=== PATIENT | female | born 1965 | race Caucasian/White ===

== ENCOUNTER → 2020-06-17 12:34 | Outpatient (BNVA) | payer MEDICAID, SELFPAY | PROVIDERS: PCP Internal Medicine; Referring Provider Internal Medicine; Visit Provider Physician Assistant | DX: K21.9 Gastro-esophageal reflux disease without esophagitis (principal); K59.09 Other constipation; Z79.899 Other long term (current) drug therapy | CPT/HCPCS: 99214 ==

== ENCOUNTER → 2020-09-16 09:29 | Outpatient (BNVA) | payer MEDICAID, SELFPAY | PROVIDERS: PCP Internal Medicine; Referring Provider Internal Medicine; Visit Provider Physician Assistant ==

== ENCOUNTER 2020-11-01 10:41 | Outpatient (REF) | payer MEDICAID, SELFPAY ==
--- NOTE | ~2020-11-01 | CT_ITS ---
EXAMINATION: CT CHEST WITHOUT CONTRAST CLINICAL INFORMATION: Pulmonary nodules COMPARISON: Multiple priors, most recently 11/25/2019 TECHNIQUE: Multidetector volumetric CT imaging of the chest was done. Axial MIP volume rendering provided. Sagittal and coronal reformatted images were obtained. This CT examination was performed using dose optimization techniques as appropriate, variously including the following: *Automated exposure control *Adjustment of mA and/or kV according to patient size (this includes techniques or standardized protocols for targeted exams where dose is matched to indication/reason for exam; i.e. extremities or head) *Use of iterative reconstruction technique DLP: 157 mGy-cm FINDINGS: EMERGENCY MEDICAL DISPATCHER: Unremarkable. LUNGS: The central airways are patent. Mild biapical paraseptal emphysema. Mild centrilobular emphysema. No dense consolidation. Minimal bibasilar atelectasis. Mild bronchial wall thickening noted. This could be associated with chronic bronchitis. Pulmonary nodules are again noted. 1. Redemonstration of the cavitating right lower lobe nodule with thin wall measuring 0.7 cm on series 7 image 215. This had measured 0.6 cm on prior. There is no significant solid component, though there is some groundglass opacity at the margin as seen on series 7 image 215. 2. Right middle lobe fissural nodule measuring 0.5 cm on series 7 image 303, unchanged and likely a fissural lymph node. 3. Left upper lobe groundglass nodule measuring 0.6 cm on series 7 image 207. This is without significant change when measured by me. 4. Anterior right upper lobe nodule measuring 0.5 cm along the mediastinal margin, series 7 image 248, unchanged from prior. This may be fissural as well. MEDIASTINUM: Normal heart size. No pericardial effusion. No mediastinal lymphadenopathy. Minimal stranding in the anterior superior mediastinal fat is unchanged. PLEURA: There is no pleural effusion. No pleural mass or thickening. No pneumothorax. AXILLA: No lymphadenopathy. Calcification in the right breast soft tissues is unchanged. UPPER ABDOMEN: Unremarkable. OSSEOUS STRUCTURES: No acute or suspicious osseous abnormality. CT/CT chest wo con IMPRESSION: Mild emphysema. Multiple nodules are again noted, some of which likely represent fissural lymph nodes. There is a 0.7 cm cavitating right lower lobe nodule which is slightly increased in size from prior, measuring 0.6 cm at that time. Given the growth, follow-up should be as clinically directed.
== END 2020-11-01 10:42 | disposition home or self-care (01) ==
LOC: HO.CT 10:41
PROVIDERS: Visit Provider Internal Medicine Pulmonary Disease
DX: R91.8 Other nonspecific abnormal finding of lung field (principal)
CPT/HCPCS: 71250

== ENCOUNTER 2020-11-19 12:45 | Outpatient (REF) | payer MEDICAID, SELFPAY ==
--- NOTE | ~2020-11-19 | MR_ITS ---
EXAMINATION: MR LUMBAR SPINE WITHOUT CONTRAST CLINICAL INFORMATION: Lower back pain for 3 years. Bilateral knee pain. Left buttock and leg pain. COMPARISON: Lumbar spine radiographs dated 09/22/2016. TECHNIQUE: MRI of the lumbar spine was obtained using routine sequences without contrast. FINDINGS: VERTEBRAL BODIES AND PARASPINAL STRUCTURES: Normal vertebral body alignment. The lumbar lordosis is maintained. No acute fracture or subluxation. No loss of vertebral body height. Mild loss of intervertebral disc height at L3-L4. More severe loss of intervertebral disc height at L5-S1 with minimal Modic type II degenerative endplate changes. Posterior vertebral body hemangioma within L1. No acute abnormal marrow signal. Small simple-appearing bilateral renal cysts. The visualized paraspinal soft tissues are otherwise unremarkable. CONUS MEDULLARIS AND CAUDA EQUINA: Normal, terminating at the level of L1. SPINAL LEVELS: T12-L1: No significant disc bulge. No central canal or neural foraminal stenosis. L1-L2: No significant disc bulge. No central canal or neural foraminal stenosis. L2-L3: No significant disc bulge. No central canal or neural foraminal stenosis. L3-L4: Shallow broad-based disc bulge with a superimposed right foraminal disc protrusion and annular fissuring which contacts the exiting right L3 nerve root. Bilateral facet arthropathy and thickening of the ligamentum flavum with moderate right and mild left neural foraminal stenosis. L4-L5: Shallow broad-based disc bulge, slightly asymmetric to the left. Bilateral facet arthropathy and thickening of the ligamentum flavum with mild to moderate bilateral neural foraminal stenosis. L5-S1: Broad-based disc osteophyte complex, asymmetric to the right. Bilateral facet arthropathy with mild bilateral neural foraminal stenosis. MR/MR lumbar spine wo con IMPRESSION: 1. L3-L4 broad-based disc bulge and superimposed right foraminal disc protrusion with annular fissuring which contacts the exiting right L3 nerve root. Bilateral facet arthropathy and thickening of ligamentum flavum with moderate right and mild left neural foraminal stenosis. 2. L4-L5 shallow broad-based disc bulge, slightly asymmetric to the left with bilateral facet arthropathy and thickening of ligamentum flavum causing mild to moderate bilateral neural foraminal stenosis. 3. Severe degenerative disc disease at L5-S1 with a broad-based disc osteophyte complex, asymmetric to the right as well as bilateral facet arthropathy causing mild bilateral neural foraminal stenosis.
== END 2020-11-19 12:46 | disposition home or self-care (01) ==
LOC: HO.MRI 12:45
PROVIDERS: PCP Internal Medicine; Visit Provider Internal Medicine
DX: M54.5 Low back pain (principal)
CPT/HCPCS: 72148

== ENCOUNTER → 2020-11-30 09:37 | Outpatient (BNVA) | payer MEDICAID, SELFPAY | PROVIDERS: PCP Internal Medicine; Referring Provider Internal Medicine; Visit Provider Internal Medicine Pulmonary Disease | DX: J44.1 Chronic obstructive pulmonary disease with (acute) exacerbation (principal); R91.8 Other nonspecific abnormal finding of lung field | CPT/HCPCS: 99212 ==

== ENCOUNTER → 2020-12-20 09:24 | Outpatient (BNVA) | payer MEDICAID, SELFPAY | PROVIDERS: PCP Internal Medicine; Visit Provider Physician Assistant ==

== ENCOUNTER → 2021-01-31 16:04 | Outpatient (BNVA) | payer MEDICAID, SELFPAY | PROVIDERS: PCP Internal Medicine; Visit Provider Anesthesiology | DX: M47.817 Spondylosis without myelopathy or radiculopathy, lumbosacral region (principal); M51.36 Other intervertebral disc degeneration, lumbar region; G89.4 Chronic pain syndrome | CPT/HCPCS: 99202 ==

== ENCOUNTER 2021-02-23 13:49 | Outpatient (REF) | payer MEDICAID, SELFPAY ==
--- NOTE | ~2021-02-23 | CT_ITS ---
EXAMINATION: CT CHEST WITHOUT CONTRAST CLINICAL INFORMATION: Pulmonary nodules COMPARISON: Previous chest CT scans most recent October 2020 TECHNIQUE: Multidetector volumetric CT imaging of the chest was done. Axial MIP volume rendering provided. Sagittal and coronal reformatted images were obtained. This CT examination was performed using dose optimization techniques as appropriate, variously including the following: *Automated exposure control *Adjustment of mA and/or kV according to patient size (this includes techniques or standardized protocols for targeted exams where dose is matched to indication/reason for exam; i.e. extremities or head) *Use of iterative reconstruction technique DLP: 180 mGy-cm FINDINGS: MAP DRAFTER: LUNGS: There is evidence of mild paraseptal emphysema. There is mild biapical pleural parenchymal scarring. There are multiple bilateral pulmonary nodules. These are stable compared to most recent exam October 2020. Largest right pulmonary nodule is a 9 mm partially cystic or cavitary nodule in the right lower lobe axial image 304 series 7. This has some surrounding groundglass attenuation. By my measurement this is not appear appreciably changed from most recent exam October 2020 however this is definitely increased from older exam for example measuring 4 mm axial image 281 series 4 10/28/2017. Largest left pulmonary nodule is a 7 mm groundglass attenuation left upper lobe nodule axial image 279 series 7. This is also unchanged from most recent exam October 2020 however appears increased from 4 mm axial image 2:30 series 10/28/2017 exam. No new pulmonary nodule is seen. MEDIASTINUM: There are small mediastinal lymph nodes that are stable. There is a mild infiltration of the fat in the anterior mediastinum that is stable. The heart does not appear enlarged. The thoracic aorta is normal in caliber. PLEURA: There is no pleural effusion. No pleural mass or thickening. AXILLA: No lymphadenopathy. UPPER ABDOMEN: Unremarkable. OSSEOUS STRUCTURES: Unremarkable. CT/CT chest wo con IMPRESSION: Emphysema. Heterogeneous partially cystic partially groundglass attenuation superior segment right lower lobe and left upper lobe nodules. These are not appreciably changed from most recent exam October 2020 however are gradually increasing in size compared to remote older exams.
== END 2021-02-23 13:50 | disposition home or self-care (01) ==
LOC: HO.CT 13:49
PROVIDERS: Visit Provider Internal Medicine Pulmonary Disease
DX: R91.8 Other nonspecific abnormal finding of lung field (principal)
CPT/HCPCS: 71250

== ENCOUNTER → 2021-03-03 09:38 | Outpatient (BNVA) | payer MEDICAID, SELFPAY | PROVIDERS: PCP Internal Medicine; Visit Provider Internal Medicine Pulmonary Disease | DX: J44.1 Chronic obstructive pulmonary disease with (acute) exacerbation (principal); R91.8 Other nonspecific abnormal finding of lung field | CPT/HCPCS: 99212 ==

== ENCOUNTER → 2021-03-16 13:01 | Outpatient (REF) | payer MEDICAID, SELFPAY ==
[2021-03-16 13:45] LABS: MANUAL DIFF FLAG NO
[2021-03-16 14:00] LABS: Basophils Absolute Auto 0.1 X10*3/uL (0.0-0.2); Basophils Percent Auto 0.8 % (0-2); Eosinophils Absolute Auto 0.3 X10*3/uL (0.0-0.4); Eosinophils Percent Auto 2.2 % (0-4); Hematocrit 36.6 % (37-47); Hemoglobin 12.2 g/dl (12.0-16.0); Imm Gran Abs Auto 0.05 X10*3/uL (0.00-0.03); Imm Gran Pct Auto 0.4 % (0.0-0.4); Lymphocytes Absolute Auto 3.8 X10*3/uL (1.2-4.9); Mean Corpuscular HGB Conc 33.3 g/dl (31.0-35.0); Mean Corpuscular Hemoglobin 29.5 pg (27.0-33.0); Mean Corpuscular Volume 88.4 fL (80-98); Mean Platelet Volume 9.4 fL (9.4-12.3); Monocytes Absolute Auto 0.7 X10*3/uL (0.1-1.2); Monocytes Percent Auto 5.7 % (2-11); Neutrophils Absolute Auto 7.7 X10*3/uL (2.0-8.3); Neutrophils Percent Auto 60.9 % (45-73); Platelet Count 395 X10*3/uL (160-400); Red Blood Count 4.14 X10*6/uL (4.20-5.50); Red Cell Distribution Width 14.4 % (11.0-16.0); White Blood Count 12.6 X10*3/uL (4.8-10.8)
[2021-03-16 14:10] LABS: Alanine Aminotransferase 7 U/L (0-31); Alkaline Phosphatase 93 U/L (39-117); Anion Gap 12 (12-20); Aspartate Amino Transferase 13 U/L (5-31); Bilirubin Direct < 0.2 mg/dL (0.0-0.5); Bilirubin Total 0.2 mg/dL (0.0-1.0); Blood Urea Nitrogen 9 mg/dL (9-16); Calcium 9.9 mg/dL (8.4-10.2); Carbon Dioxide 24 mmol/L (22-29); Chloride 108 mmol/L (96-108); Cholesterol 231 mg/dL; Estimated Glomerular Filt Rate 45; Glucose Random 89 mg/dL (60-115); HDL Cholesterol 35 mg/dL; LDL Cholesterol Calculated 128 mg/dl; Potassium 4.4 mmol/L (3.3-5.1); Sodium 140 mmol/L (135-145); Total Protein 7.6 g/dL (6.5-8.0); Triglycerides 340 mg/dL
[2021-03-16 14:37] LABS: Free T4 (Free Thyroxine) 0.92 ng/dL (0.71-1.85); Thyroid Stimulating Hormone 4.62 uIU/mL (0.32-4.0)
[2021-03-16 16:11] LABS: T4 Thyroxine 6.2 ug/dL (4.5-12.0)
[2021-03-17 09:06] LABS: Triiodothyronine T3 Total 108 ng/dL (76-181)
[2021-03-17 10:03] LABS: Thyroglobulin Antibodies <1 IU/mL (< or = 1); Thyroid Peroxidase Antibodies 1 IU/mL (<9)
[2021-03-17 10:11] LABS: T3 Uptake 27 % (22-35)
[2021-03-23 15:51] LABS: Thyroid Stimulating Immunoglob <89 % baseline (<140)
== END ==
LOC: HO.CARD 13:01
PROVIDERS: PCP Internal Medicine; Referring Provider Internal Medicine; Visit Provider Internal Medicine
DX: M79.10 Myalgia, unspecified site (principal); R79.89 Other specified abnormal findings of blood chemistry; F31.9 Bipolar disorder, unspecified
CPT/HCPCS: 36415; 80048; 80061; 80076; 84436; 84439; 84443; 84445; 84479; 84480; 85025; 86376; 86800

== ENCOUNTER → 2021-03-18 13:23 | Outpatient (REF) | payer MEDICAID, SELFPAY ==
--- NOTE | 2021-03-18 13:32 | ECG_ITS ---
Test Reason : BIPOLAR D/O Blood Pressure : / mmHG Vent. Rate : 078 BPM Atrial Rate : 078 BPM P-R Int : 126 ms QRS Dur : 086 ms QT Int : 396 ms P-R-T Axes : 027 044 057 degrees QTc Int : 451 ms Normal sinus rhythm Normal ECG When compared with ECG of 11-JUN-2019 10:01, No significant change was found Referred By: Ghassan Mcconnell Electronically Signed By:COURTNEY JEAN BAPTISTE MD
== END ==
LOC: HO.CARD 13:23
PROVIDERS: PCP Internal Medicine; Visit Provider Registered Nurse Psychiatric/Mental Health
DX: F31.9 Bipolar disorder, unspecified (principal)
CPT/HCPCS: 93005

== ENCOUNTER 2021-04-12 06:07 | Outpatient (REF) | payer MEDICAID, SELFPAY | END 2021-04-12 06:08 | disposition home or self-care (01) | LOC: HO.RADIR 06:07 | PROVIDERS: Visit Provider Anesthesiology | DX: Z13.89 Encounter for screening for other disorder (principal) ==

== ENCOUNTER → 2021-04-20 09:20 | Outpatient (BNVA) | payer MEDICAID, SELFPAY | PROVIDERS: PCP Internal Medicine; Visit Provider Physician Assistant ==

== ENCOUNTER 2021-05-17 07:43 | Outpatient (REF) | payer MEDICAID, SELFPAY | END 2021-05-17 07:44 | disposition home or self-care (01) | LOC: HO.RADIR 07:43 | PROVIDERS: Visit Provider Anesthesiology | DX: Z13.89 Encounter for screening for other disorder (principal) ==

== ENCOUNTER → 2021-05-30 13:27 | Outpatient (BNVA) | payer MEDICAID, SELFPAY | PROVIDERS: PCP Internal Medicine; Visit Provider Internal Medicine Pulmonary Disease | DX: J44.9 Chronic obstructive pulmonary disease, unspecified (principal) | CPT/HCPCS: 99211 ==

== ENCOUNTER 2021-06-03 13:18 | Outpatient (REF) | payer MEDICAID, SELFPAY ==
--- NOTE | ~2021-06-03 | MR_ITS ---
MR BRAIN WITHOUT AND WITH CONTRAST CLINICAL INFORMATION: Hypertension and Headache. COMPARISON: None available. TECHNIQUE: Multiplanar, multisequence MRI of the brain was obtained before and after the intravenous administration of 5 mL Gadavist. FINDINGS: There is no pathologic intracranial enhancement. There is mild chronic microangiopathy. There is no hydrocephalus, extra-axial surface collection, or herniation. The major flow voids at the skull base are preserved. There is no acute infarct on diffusion-weighted imaging. There is no intracranial hemorrhage on the gradient recalled echo acquisition. The midline structures are normal. The cerebellar tonsils are normally positioned. The cerebellum and brainstem are normal. The craniocervical junction is normal. Osseous marrow signal intensity is homogenous. There is a chronic defect within the cartilaginous nasal septum. There is a small left mastoid effusion. There is near complete opacification of the left frontal sinus. MR/MR head/brain wo/w con IMPRESSION: - No acute intracranial findings. No enhancing lesions. - There is mild chronic microangiopathy - Near complete opacification of the left frontal sinus.
[2021-06-03 12:07] LABS: MANUAL DIFF FLAG NO
[2021-06-03 12:11] LABS: Basophils Absolute Auto 0.1 X10*3/uL (0.0-0.2); Basophils Percent Auto 0.9 % (0-2); Eosinophils Absolute Auto 0.2 X10*3/uL (0.0-0.4); Eosinophils Percent Auto 2.4 % (0-4); Hematocrit 38.9 % (37-47); Imm Gran Abs Auto 0.02 X10*3/uL (0.00-0.03); Imm Gran Pct Auto 0.2 % (0.0-0.4); Lymphocytes Absolute Auto 3.3 X10*3/uL (1.2-4.9); Lymphocytes Percent Auto 33.6 % (20-40); Mean Corpuscular HGB Conc 33.4 g/dl (31.0-35.0); Mean Corpuscular Hemoglobin 29.9 pg (27.0-33.0); Mean Corpuscular Volume 89.4 fL (80-98); Mean Platelet Volume 10.1 fL (9.4-12.3); Monocytes Absolute Auto 0.7 X10*3/uL (0.1-1.2); Monocytes Percent Auto 6.7 % (2-11); Neutrophils Absolute Auto 5.5 X10*3/uL (2.0-8.3); Neutrophils Percent Auto 56.2 % (45-73); Platelet Count 294 X10*3/uL (160-400); Red Blood Count 4.35 X10*6/uL (4.20-5.50); Red Cell Distribution Width 14.9 % (11.0-16.0); White Blood Count 9.8 X10*3/uL (4.8-10.8)
[2021-06-03 12:28] LABS: Alanine Aminotransferase 17 U/L (0-31); Albumin Level 4.2 g/dL (3.5-5.0); Alkaline Phosphatase 90 U/L (39-117); Anion Gap 15 (12-20); Aspartate Amino Transferase 78 U/L (5-31); Bilirubin Total 0.3 mg/dL (0.0-1.0); Blood Urea Nitrogen 13 mg/dL (9-16); Calcium 9.9 mg/dL (8.4-10.2); Carbon Dioxide 26 mmol/L (22-29); Chloride 102 mmol/L (96-108); Estimated Glomerular Filt Rate 33; Glucose Random 113 mg/dL (60-115); Potassium 4.2 mmol/L (3.3-5.1); Sodium 139 mmol/L (135-145); Total Protein 7.7 g/dL (6.5-8.0)
[2021-06-03 12:48] LABS: Thyroid Stimulating Hormone 3.24 uIU/mL (0.32-4.0)
== END 2021-06-03 13:19 | disposition home or self-care (01) ==
LOC: HO.MRI 13:18
PROVIDERS: Physician Assistant; Visit Provider Internal Medicine
DX: R51.9 Headache, unspecified (principal); R10.11 Right upper quadrant pain; K59.09 Other constipation; R74.01 Elevation of levels of liver transaminase levels; I10 Essential (primary) hypertension
CPT/HCPCS: 36415; 70553; 80053; 84443; 85025; A9585

== ENCOUNTER 2021-06-14 06:38 | Outpatient (REF) | payer MEDICAID, SELFPAY ==
--- NOTE | ~2021-06-14 | FL_ITS ---
EXAMINATION: XR FLUOROSCOPY WITH IMAGES CLINICAL INFORMATION: M47.817 - Spondylosis without myelopathy or radiculopathy COMPARISON: MR lumbar spine 11/19/2020 TECHNIQUE: Fluoroscopy performed by Dr. Darren Marsh. Fluoroscopy time: 0.8 minutes DAP: 5.9 Gycm2 Images: 8 FINDINGS: There are spinal needles overlying the bilateral outer L2, L3, L4, and L5 neural foramen. There is contrast seen in the respective nerve sheaths. Some early transforaminal epidural extension is suggested. No visible vascular communication. FL/FL guidance in treatment room IMPRESSION: Fluoroscopy for pain management procedures.
== END 2021-06-14 06:39 | disposition home or self-care (01) ==
LOC: HO.RADIR 06:38
PROVIDERS: Visit Provider Anesthesiology
DX: M47.817 Spondylosis without myelopathy or radiculopathy, lumbosacral region (principal)
CPT/HCPCS: 64493; 64494; 64495; J3300; Q9967

== ENCOUNTER → 2021-06-29 13:11 | Outpatient (BNVA) | payer MEDICAID, SELFPAY | PROVIDERS: PCP Internal Medicine; Visit Provider Anesthesiology | DX: J44.9 Chronic obstructive pulmonary disease, unspecified (principal); R91.8 Other nonspecific abnormal finding of lung field; R06.00 Dyspnea, unspecified; M47.817 Spondylosis without myelopathy or radiculopathy, lumbosacral region; M51.36 Other intervertebral disc degeneration, lumbar region; G89.4 Chronic pain syndrome | CPT/HCPCS: 99212 ==

== ENCOUNTER 2021-07-07 10:49 | Emergency (ER) | payer MEDICAID, SELFPAY ==
--- NOTE | ~2021-07-07 | MR_ITS ---
EXAMINATION: MR THORACIC AND LUMBAR SPINE WITHOUT AND WITH CONTRAST CLINICAL INFORMATION: Thoracic and lumbar pain. Elevated ESR and CRP. Rule out abscess. COMPARISON: None TECHNIQUE: Multiplanar multisequence MRI of the thoracic and lumbar spine was performed without and with contrast. A total of 7.5 mL Gadavist was intravenously administered. FINDINGS: Thoracic spine: The thoracic vertebral bodies maintain normal heights and alignment. Mild multilevel disc height loss is seen. There is no bone marrow edema. No destructive endplate change or subchondral collapse is seen. There is no evidence of abnormal osseous enhancement. The thoracic cord signal appears normal. No abnormal extra-axial fluid collection is seen. No spinal canal or neural foraminal stenosis is seen. There is no significant disc herniation. Right-sided ligamentum flavum infolding/ossification mildly flattens the right dorsolateral thecal sac at the T10-T11 level. Patchy areas of consolidation are seen throughout the both lungs. A large area of consolidation is seen in the left midlung. Lumbar spine: The lumbar vertebral bodies maintain normal heights and alignment. There is severe disc height loss at L5-S1. No edema is seen about the endplates. No evidence of endplate destruction. Disc desiccation is seen at L3-L4 and L4-L5. There is no abnormal osseous enhancement. A hemangioma is seen in the L1 vertebral body. The distal spinal cord appears normal. The conus medullaris terminates normally at the L1 level. No cauda equina nerve root enhancement is seen. There is no extra-axial fluid collection. No significant abnormality seen at the L1-L2 or L2-L3 disc levels. L3-L4: Disc bulging with facet arthropathy. Mild narrowing of the right neural foramen. No spinal canal stenosis. L4-L5: Disc bulging with moderate facet arthropathy. Mild narrowing of the left subarticular zone. Minimal encroachment on the neural foramina. No spinal canal stenosis. L5-S1: Significant disc height loss. Moderate facet arthropathy. No spinal canal stenosis. Osteophytic ridging narrows the neural foramina and contacts the extraforaminal L5 nerve root segments. The extraspinal soft tissues are within normal limits. The paraspinal musculature appears symmetric. MR/MR thoracic spine wo/w con IMPRESSION: Patchy areas of consolidation seen throughout both lungs more extensive in the left midlung. An infectious/inflammatory process is favored. Dedicated chest CT is recommended. No abnormal enhancement or destructive changes identified within the thoracic or lumbar spine. Severe disc height loss is seen at L5-S1, suspected to be degenerative given the absence of subchondral marrow edema or enhancement. Mild spondylosis.
[2021-07-07 10:57] VITALS: BP 149/80; PULSE 120; RESP 18; TEMP 36.7; O2SAT 96; BMI 26.6
--- NOTE | 2021-07-07 11:10 | ED.BACK ---
HPI - Back Pain/Injury General Chief Complaint: Back Pain/Injury Stated Complaint: BACK PAIN S/P SURGERY Time Seen by Provider: 07/07/21 11:07 Source: patient Mode of arrival: EMS Limitations: no limitations History of Present Illness HPI Narrative: 56-year-old female who presents emergency department for evaluation of lower back pain x3 days. Patient states that she has a history of chronic pain to her lower back secondary to degenerative disc disease and arthritis. The patient is followed by pain management here. She states that she has had a recent procedure with no relief of her pain. She states she currently has pain in her lower back which is a constant stabbing throbbing sensation. The pain is greater than 10/10. The pain does not radiate down her legs but she states that her legs do feel weak. She states that she has not been able to eat for a month secondary to her pain. She denied fever but has been subjectively feeling hot and cold with occasional chills. She has urinary frequency every hour with no dysuria. She denies loss of bowel or bladder control. She is also complaining of a migraine headache. She states she is beginning these headaches every day for the last month. The headache is located her religious region, the headache is a constant throbbing sensation which is 8.5/10. The patient is followed by pain management was last seen on 06/29/2021. She had a surgical procedure done on 06/14/2021 (bupivacaine bilateral L3-L4 dorsal ramus L5 medial branch block ) with no relief for pain. She had an MRI of her lower back 11/20/2019 which is consistent with spondylosis of lumbar spine in degenerative disc disease of lumbar spine. Patient's medication list is not updated but the computer list was reviewed and the patient does take Suboxone. She states that she has been on Suboxone for 11 years for pain. Related Data Home Medications Medication Instructions Recorded Confirmed acetaminophen 500 mg capsule 1,000 mg PO Q6H PRN 01/31/21 07/07/21 benzonatate 100 mg capsule 100 mg PO BID-TID 01/31/21 07/07/21 buprenorphine 8 mg-naloxone 2 mg 2 film SUBLINGUAL DAILY 01/31/21 07/07/21 sublingual film (Suboxone) clonazepam 2 mg tablet (Klonopin) 2 mg PO TID 01/31/21 07/07/21 ergocalciferol (vitamin D2) 1,250 1,250 mcg PO QWEEK 01/31/21 07/07/21 mcg (50,000 unit) capsule (Drisdol) folic acid 1 mg tablet 1 mg PO DAILY 01/31/21 07/07/21 nicotine 10 mg inhalation 1 inh INHALATION Q2-4H 01/31/21 07/07/21 cartridge (Nicotrol) polyethylene glycol 3350 17 17 g PO DAILY 01/31/21 07/07/21 gram/dose oral powder (Miralax) rosuvastatin 5 mg tablet 5 mg PO DAILY 01/31/21 07/07/21 ziprasidone HCl 80 mg capsule 80 mg PO BID 01/31/21 07/07/21 (Geodon) zolpidem 10 mg tablet (Ambien) 10 mg PO BEDTIME PRN 01/31/21 07/07/21 loratadine 10 mg tablet 10 mg PO QAM 04/20/21 07/07/21 lurasidone 60 mg tablet (Latuda) 60 mg PO QAM 04/20/21 07/07/21 bisacodyl 5 mg tablet,delayed 5 mg PO BEDTIME 07/07/21 07/07/21 release (Dulcolax (bisacodyl)) buprenorphine 8 mg-naloxone 2 mg 1 film SUBLINGUAL BEDTIME 07/07/21 07/07/21 sublingual film (Suboxone) clonidine HCl 0.1 mg tablet 3 tab PO BEDTIME 07/07/21 07/07/21 dextroamphetamine-amphetamine 20 20 mg PO DAILY@1400 07/07/21 07/07/21 mg tablet dextroamphetamine-amphetamine ER 30 mg PO DAILY 07/07/21 07/07/21 30 mg 24hr capsule,extend release (Adderall XR) ipratropium 0.5 mg-albuterol 3 mg 1 amp INHALATION Q6H PRN 07/07/21 07/07/21 (2.5 mg base)/3 mL nebulization soln sertraline 100 mg tablet 2 tab PO QAM 07/07/21 07/07/21 Previous Rx's Medication Instructions Recorded albuterol sulfate 90 mcg/actuation 2 puff PO Q2H PRN #8.5 g 01/05/21 aerosol inhaler (ProAir HFA) omeprazole 20 mg capsule,delayed 20 mg PO BID #60 cap 02/15/21 release theophylline 400 mg 400 mg PO DAILY 30 Days #30 tab 03/03/21 tablet,extended release 24 hr tiotropium 2.5 mcg-olodaterol 2.5 2 puff PO DAILY #4 g 03/31/21 mcg/actuation mist for inhalation (Stiolto Respimat) methylcellulose (laxative) 500 mg 500 mg PO BID 30 Days #60 tab 05/24/21 tablet (Citrucel) prednisone 10 mg tablet 10 mg PO DAILY 30 Days #30 tab 06/29/21 cyclobenzaprine 10 mg tablet 10 mg PO TID PRN #20 tab 07/07/21 doxycycline hyclate 100 mg tablet 100 mg PO Q12H 10 Days #20 tab 07/07/21 Allergies Allergy/AdvReac Type Severity Reaction Status Date / Time sulfamethoxazole Allergy Mild inflamed Verified 06/29/21 15:10 [From Bactrim] hives, rash, trimethoprim [From Bactrim] Allergy Mild inflamed Verified 06/29/21 15:10 hives, rash, amoxicillin [AMOXICILLIN] Allergy Unknown HIVES Verified 06/29/21 15:10 aspirin Allergy Unknown unknown Verified 06/29/21 15:10 codeine Allergy Unknown unknown Verified 06/29/21 15:10 morphine Allergy Unknown unknown Verified 06/29/21 15:10 Penicillins [PENICILLINS] Allergy Unknown HIVES Verified 06/29/21 15:10 Sulfa (Sulfonamide Allergy Unknown Unknown Verified 06/29/21 15:10 Antibiotics) Review of Systems Review of Systems: Yes all other systems are reviewed and are negative [facility] Past Medical History [facility] Narrative: Social history: The patient does smoke cigarettes 1/2 pack per day times many years. She denies alcohol use. She denies injection drug use or illicit drug use. Medical History Acid reflux Adenomatous colon polyp Bipolar disorder Chronic constipation Chronic pain syndrome Deviated septum Disc degeneration, lumbar Emphysema lung Spondylosis 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 Surgical History History of esophagogastroduodenoscopy (EGD) Hx of colonoscopy Family History Family History Father No problems noted. Mother No problems noted. Social History Social History Household Members: Children Alcohol intake: never Smoked in Last 30 Days: No Use of substances other than those prescribed or required for medical reasons: No Advance Directives: No Advance Directives Information Provided: Yes Patient : No Current occupational status: unemployed Physical Exam Vital Signs: Vital Signs: Last Vital Signs Temp 98.4 F 07/07/21 17:44 Pulse 84 07/07/21 17:44 Resp 18 07/07/21 17:44 BP 115/57 L 07/07/21 17:44 Pulse Ox 97 07/07/21 17:44 Body Mass Index 26.6 Const: Other: Pleasant and cooperative female, she is crying secondary to her pain, she appears to be in moderate distress secondary to her pain. She was able to walk from the waiting room to stretcher without any limitations. She is able to lie on her back on the stretcher. HENMT: Head: Yes normal to inspection, Yes normocephalic and Yes atraumatic Ears: external ears normal General nose exam: Normal external nose present Face and sinus: Yes normal facial exam Mouth: Normal oral and palatal mucosa present Throat: Yes posterior oropharynx normal Eyes: General: appearance normal, both eyes and all related structures Pupils: Equal, round and reactive pupils present Neck: Neck: Yes normal visual inspection, Yes no lymphadenopathy, Yes trachea midline and Yes supple Chest: Chest palpation & inspection: normal inspection of the chest and normal palpation of entire chest wall Resp: Effort & Inspection: normal respiratory effort and able to speak in complete sentences Auscultation: clear to auscultation bilaterally Cardio: Rate: regular rate Rhythm: regular rhythm Heart sounds: S1 normal heart sound present, S2 normal heart sound present and no murmurs GI: Inspection: Yes normal to inspection Palpation (GI): Soft to palpation, nontender and no guarding Auscultation: normal bowel sounds Back/Spine/Pelvis: Other: The patient has mild tenderness with palpation of her cervical and thoracic spine. She has moderate tenderness with palpation of her lumbar spine, she has moderate to severe tenderness palpation of the right and left lumbar paraspinal muscles with no spasm of these muscles. She has negative straight leg raises bilaterally. Her strength of her lower extremities normal. Light touch is normal. Skin: General skin exam: no rashes or lesions noted Neuro: Cranial nerves: Yes CN's II-XII intact bilaterally and Yes Equal, round and reactive pupils present Cognition (Neuro): normal cognition Motor exam (neuro): 5/5 motor strength present throughout Extrem: General: Yes normal to inspection Psych: Appearance: grossly normal Speech and movement: Normal speech and movement present Affect: normal affect Attitude: cooperative Thought process: Normal thought process present Thought content: Normal thought content present Course Course Course Narrative: 56-year-old female who presents emergency department for evaluation of 3 days of lower back pain which is greater than 10/10. She is also complaining of a migraine headache which she has had daily for 1 month. The patient does have a history of chronic pain syndrome of her lower back secondary to spondylosis of the lumbar sacral region and degenerative disc disease and arthritis of the lower back. The patient also is complaining of a chronic headache. Vital signs revealed an elevated blood pressure of 149/80 and an elevated pulse of 120. Patient is afebrile with normal O2 saturation. Physical examination did reveal tenderness with palpation of her cervical and thoracic spine with increased tenderness palpation of the lumbar spine and the lumbar paraspinal muscles bilaterally. She had negative straight leg raises bilaterally and her neurologic exam was nonfocal. I did order laboratory evaluation to include CBC, CMP, sedimentation rate and CRP. The patient was ordered to get Toradol 30 mg IV, regular and 10 mg IV and Benadryl 50 mg IV to treat both her back pain and her headache. She was also ordered to get normal saline x1 L. 1346: Laboratory evaluation: Elevated WBC, ESR and CRP at 18,500, 20.83 and 67. Patient got minimal pain relief of her back pain with the above treatment, headache did improve significantly. Given the elevated inflammatory markers and the fact the patient had a procedure to her lumbar back approximately 3 weeks prior, I am concerned that she may have paraspinal abscess. Therefore MRI of the thoracic and lumbar spine were ordered without IV contrast. Patient was given Dilaudid 1 mg IV for pain. I will obtain a urine sample on the patient as well. 1638: The patient's MRI is not scheduled until 7:00 p.m. therefore I ordered blood cultures x2, ceftriaxone 1 g IV and vancomycin 750 mg IV. Patient will be given another dose of Dilaudid 1 mg IV for pain. The patient will be kept NPO and given D5 NS at 125 cc an hour. 2144: MRI of the thoracic and lumbar spine with and without contrast did not reveal any abnormal enhancement or destructive changes to find within the thoracic or lumbar spine which is reassuring. The patient did have patchy areas of consolidation seen throughout both lungs more extensively in the left mid lung. This is probably consistent with the patient's COPD however patient states she has been coughing more than usual therefore she will be started on doxycycline for possible bronchitis. Patient will be referred back to her pain management clinic for treatment of her pain. She was started on Flexeril 10 mg 3 times a day as needed for pain and spasm. MDM - Back Pain/Injury Lab Data Result diagrams: 07/07/21:07/07/21: Labs: Lab Results 07/07/21 07/07/21 07/07/21 Range/Units :18 07:18 07: WBC 18.5 H (4.8-10.8) X10*3/uL RBC 4.26 (4.20-5.50) X10*6/uL Hgb 12.7 (12.0-16.0) g/dl Hct 37.1 (37.0-47.0) % MCV 87.1 (80.0-98.0) fL MCH 29.8 (27.0-33.0) pg MCHC 34.2 (31.0-35.0) g/dl RDW 15.1 (11.0-16.0) % Plt Count 365 (160-400) X10*3/uL MPV 10.0 (9.4-12.3) fL Immature Gran % (Auto) 0.3 (0.0-0.4) % Neut % (Auto) 81.1 H (45-73) % Lymph % (Auto) 12.5 L (20-40) % [place] % (Auto) 4.2 (2-11) % Eos % (Auto) 1.3 (0-4) % Baso % (Auto) 0.6 (0-2) % Lymph # (Auto) 2.3 (1.2-4.9) X10*3/uL [place] # (Auto) 0.8 (0.1-1.2) X10*3/uL Eos # (Auto) 0.3 (0.0-0.4) X10*3/uL Baso # (Auto) 0.1 (0.0-0.2) X10*3/uL Abs Immat Gran (auto) 0.06 H (0.00-0.03) X10*3/uL Absolute Neuts (auto) 15.0 H (2.0-8.3) x10*3/uL Absolute Nucleated RBC 0.000 (0.0-0.012) X10*3/uL Nucleated RBC % (auto) 0.0 (0.0-0.2) /100WBC ESR 67 H (0-20) MM/HR Sodium 139 (135-145) mmol/L Potassium 3.3 D (3.3-5.1) mmol/L Chloride 103 (96-108) mmol/L Carbon Dioxide 22 (22-29) mmol/L Anion Gap 17 (12-20) BUN 14 (9-16) mg/dL Creatinine 1.18 (0.5-1.4) mg/dL Estim Creat Clear Calc 54.4 Estimated GFR 48 Random Glucose 93 (60-115) mg/dL Lactic Acid (0.5-2.0) mmol/L Calcium 9.7 (8.4-10.2) mg/dL Total Bilirubin 0.7 (0.0-1.0) mg/dL AST 67 H (5-31) U/L ALT 24 (0-31) U/L Alkaline Phosphatase 88 (39-117) U/L C-Reactive Protein 20.83 H (< or = 0.50) mg/dL Total Protein 7.6 (6.5-8.0) g/dL Albumin 4.1 (3.5-5.0) g/dL Lipase 10 (8-78) U/L Urine Color Urine Appearance Urine pH (5.0-8.0) Ur Specific [place] (1.005-1.025) Urine Protein (NEG-TRACE) MG/DL Urine Glucose (UA) (NEG) MG/DL Urine Ketones (NEG) MG/DL Urine Blood (NEG) Urine Nitrite (NEG) Ur Leukocyte Esterase (NEG) Urine RBC (0) /HPF Urine WBC (0-4) /HPF Ur Squamous Epith Cells /LPF Urine Bacteria /LPF Urine Mucus /LPF Urine Test (NEGATIVE) 07/07/21 07/07/21 07/07/21 Range/Units 13:58 13:58 17:02 WBC (4.8-10.8) X10*3/uL RBC (4.20-5.50) X10*6/uL Hgb (12.0-16.0) g/dl Hct (37.0-47.0) % MCV (80.0-98.0) fL MCH (27.0-33.0) pg MCHC (31.0-35.0) g/dl RDW (11.0-16.0) % Plt Count (160-400) X10*3/uL MPV (9.4-12.3) fL Immature Gran % (Auto) (0.0-0.4) % Neut % (Auto) (45-73) % Lymph % (Auto) (20-40) % [place] % (Auto) (2-11) % Eos % (Auto) (0-4) % Baso % (Auto) (0-2) % Lymph # (Auto) (1.2-4.9) X10*3/uL [place] # (Auto) (0.1-1.2) X10*3/uL Eos # (Auto) (0.0-0.4) X10*3/uL Baso # (Auto) (0.0-0.2) X10*3/uL Abs Immat Gran (auto) (0.00-0.03) X10*3/uL Absolute Neuts (auto) (2.0-8.3) x10*3/uL Absolute Nucleated RBC (0.0-0.012) X10*3/uL Nucleated RBC % (auto) (0.0-0.2) /100WBC ESR (0-20) MM/HR Sodium (135-145) mmol/L Potassium (3.3-5.1) mmol/L Chloride (96-108) mmol/L Carbon Dioxide (22-29) mmol/L Anion Gap (12-20) BUN (9-16) mg/dL Creatinine (0.5-1.4) mg/dL Estim Creat Clear Calc Estimated GFR Random Glucose (60-115) mg/dL Lactic Acid 0.7 (0.5-2.0) mmol/L Calcium (8.4-10.2) mg/dL Total Bilirubin (0.0-1.0) mg/dL AST (5-31) U/L ALT (0-31) U/L Alkaline Phosphatase (39-117) U/L C-Reactive Protein (< or = 0.50) mg/dL Total Protein (6.5-8.0) g/dL Albumin (3.5-5.0) g/dL Lipase (8-78) U/L Urine Color YELLOW Urine Appearance HAZY Urine pH 6.0 (5.0-8.0) Ur Specific [place] 1.025 (1.005-1.025) Urine Protein 2+ H (NEG-TRACE) MG/DL Urine Glucose (UA) NEG (NEG) MG/DL Urine Ketones 40 (NEG) MG/DL Urine Blood 1+ H (NEG) Urine Nitrite NEG (NEG) Ur Leukocyte Esterase NEG (NEG) Urine RBC 10-14 H (0) /HPF Urine WBC 0 (0-4) /HPF Ur Squamous Epith Cells TRACE /LPF Urine Bacteria NONE /LPF Urine Mucus 2+ /LPF Urine Test NEGATIVE (NEGATIVE) Discharge Plan Discharge Clinical Impression: Acute bilateral thoracic back pain, Lumbar back pain, Bronchitis Patient Disposition: Home, Self-Care Instructions: Acute Bronchitis (ED), Back Pain (ED) Additional Instructions: Your blood work did reveal an elevated white blood cell count elevated sedimentation rate and elevated CRP which are all markers of inflammation are concerning for possible infection The MRI of her thoracic and lumbar spine did not reveal any abscess or infection of your spine to explain your symptoms. The MRI did reveal a possible infection of your left lung. I am starting you on doxycycline 100 mg twice a day for 10 days to treat a possible lung infection. Continue taking your Suboxone as prescribed by your pain management clinic. Take Flexeril (cyclobenzaprine) 10 mg, 1 pill 3 times a day as needed for pain and spasm of your back Take ibuprofen 200 mg pills, 3 pills every 6 hours as needed for pain. Take Tylenol (acetaminophen) 500 mg pills, 2 pills every 4 to 6 hours as needed for pain. Follow-up with your pain management clinic for further management of your chronic back pain Please return to the emergency department if your symptoms get worse or if you develop any symptoms that are concerning to you. Prescriptions: New cyclobenzaprine 10 mg tablet 10 mg PO TID PRN (Reason: muscle pain or spasm) Qty: 20 RF: 0 doxycycline hyclate 100 mg tablet 100 mg PO Q12H 10 Days Qty: 20 RF: 0 No Action albuterol sulfate [ProAir HFA] 90 mcg/actuation HFA aerosol inhaler 2 puff PO Q2H PRN (Reason: for wheezing) Qty: 8.5 RF: 0 omeprazole 20 mg capsule,delayed release(DR/EC) 20 mg PO BID Qty: 60 RF: 6 Stiolto Respimat 2.5-2.5 mcg/actuation mist 2 puff PO DAILY Qty: 4 RF: 3 Citrucel 500 mg tablet 500 mg PO BID 30 Days Qty: 60 RF: 5 clonidine HCl 0.1 mg tablet 3 tab PO BEDTIME RF: 0 ipratropium-albuterol 0.5 mg-3 mg(2.5 mg base)/3 mL solution for nebulization 1 amp inhalation Q6H PRN (Reason: wheezing) RF: 0 sertraline 100 mg tablet 2 tab PO QAM RF: 0 dextroamphetamine-amphetamine 20 mg tablet 20 mg PO DAILY@1400 RF: 0 dextroamphetamine-amphetamine [Adderall XR] 30 mg capsule,extended release 24hr 30 mg PO DAILY RF: 0 buprenorphine-naloxone [Suboxone] 8-2 mg film 1 film sublingual BEDTIME RF: 0 bisacodyl [Dulcolax (bisacodyl)] 5 mg Tablet,Delayed Release (Dr/Ec) 5 mg PO BEDTIME RF: 0 theophylline 400 mg tablet extended release 24 hr 400 mg PO DAILY 30 Days Qty: 30 RF: 6 polyethylene glycol 3350 [Miralax] 17 gram/dose powder 17 g PO DAILY RF: 0 clonazepam [Klonopin] 2 mg tablet 2 mg PO TID RF: 0 ziprasidone HCl [Geodon] 80 mg capsule 80 mg PO BID RF: 0 zolpidem [Ambien] 10 mg tablet 10 mg PO BEDTIME PRN (Reason: Sleep) RF: 0 buprenorphine-naloxone [Suboxone] 8-2 mg film 2 film sublingual DAILY RF: 0 Nicotrol 10 mg cartridge 1 inh inhalation Q2-4H RF: 0 folic acid 1 mg tablet 1 mg PO DAILY RF: 0 rosuvastatin 5 mg tablet 5 mg PO DAILY RF: 0 ergocalciferol (vitamin D2) [Drisdol] 1,250 mcg (50,000 unit) capsule 1,250 mcg PO QWEEK RF: 0 acetaminophen 500 mg capsule 1,000 mg PO Q6H PRN (Reason: Pain) RF: 0 benzonatate 100 mg capsule 100 mg PO BID-TID RF: 0 Latuda 60 mg tablet 60 mg PO QAM RF: 0 loratadine 10 mg tablet 10 mg PO QAM RF: 0 prednisone 10 mg tablet 10 mg PO DAILY 30 Days Qty: 30 RF: 3
[2021-07-07 11:27] LABS: MANUAL DIFF FLAG NO
[2021-07-07] MEDS: Ketorolac Tromethamine 15 MG/ML VIAL 30 MG IVPUSH (11:29)
[2021-07-07] MEDS: Metoclopramide HCl 10 MG/2 ML VIAL IVPUSH (11:29)
[2021-07-07] MEDS: diphenhydrAMINE HCL 50 MG/ML VIAL IVPUSH (11:29)
[2021-07-07] MEDS: 0.9 % Sodium Chloride 1,000 ML 999 ML IV (11:34)
[2021-07-07 11:38] LABS: Basophils Absolute Auto 0.1 X10*3/uL (0.0-0.2); Basophils Percent Auto 0.6 % (0-2); Eosinophils Absolute Auto 0.3 X10*3/uL (0.0-0.4); Eosinophils Percent Auto 1.3 % (0-4); Hematocrit 37.1 % (37.0-47.0); Hemoglobin 12.7 g/dl (12.0-16.0); Imm Gran Abs Auto 0.06 X10*3/uL (0.00-0.03); Imm Gran Pct Auto 0.3 % (0.0-0.4); Lymphocytes Absolute Auto 2.3 X10*3/uL (1.2-4.9); Lymphocytes Percent Auto 12.5 % (20-40); Mean Corpuscular HGB Conc 34.2 g/dl (31.0-35.0); Mean Corpuscular Hemoglobin 29.8 pg (27.0-33.0); Mean Corpuscular Volume 87.1 fL (80.0-98.0); Monocytes Absolute Auto 0.8 X10*3/uL (0.1-1.2); Monocytes Percent Auto 4.2 % (2-11); Neutrophils Percent Auto 81.1 % (45-73); Platelet Count 365 X10*3/uL (160-400); Red Blood Count 4.26 X10*6/uL (4.20-5.50); Red Cell Distribution Width 15.1 % (11.0-16.0); White Blood Count 18.5 X10*3/uL (4.8-10.8)
[2021-07-07 11:47] LABS: C Reactive Protein 20.83 mg/dL (< or = 0.50); Lipase 10 U/L (8-78)
[2021-07-07 12:38] LABS: Erythrocyte Sedimentation Rate 67 MM/HR (0-20)
--- NOTE | 2021-07-07 13:16 | PHA.MEDREC ---
Pharmacy Consult ? Medication Reconciliation Pharmacy has completed the medication reconciliation. Patient reports the pharmacy keeps filling but the doctor told her to stop flonase and flovent. She reports she will be switching over to the allergy injection instead of loratidine. Patient also reports due to back pain she has been taking her suboxone films 3 at once instead of 2 Am and 1 Pm. Hilary Jorge, pharmD
[2021-07-07] MEDS: HYDROmorphone HCl 1 MG/ML SYRINGE IVPUSH ×3 (13:53→19:15)
[2021-07-07 14:01] LABS: Alanine Aminotransferase 24 U/L (0-31); Albumin Level 4.1 g/dL (3.5-5.0); Alkaline Phosphatase 88 U/L (39-117); Anion Gap 17 (12-20); Aspartate Amino Transferase 67 U/L (5-31); Bilirubin Total 0.7 mg/dL (0.0-1.0); Blood Urea Nitrogen 14 mg/dL (9-16); Calcium 9.7 mg/dL (8.4-10.2); Carbon Dioxide 22 mmol/L (22-29); Chloride 103 mmol/L (96-108); Creatinine Clr Calc Pharmacy 54.4; Estimated Glomerular Filt Rate 48; Glucose Random 93 mg/dL (60-115); Potassium 3.3 mmol/L (3.3-5.1); Sodium 139 mmol/L (135-145); Total Protein 7.6 g/dL (6.5-8.0)
[2021-07-07 14:12] LABS: Appearance Urine HAZY; Color Urine YELLOW; Glucose Urine UA NEG (NEG); Leukocyte Esterase Urine NEG (NEG); Nitrite Urine NEG (NEG); Specific Gravity - Urine 1.025 (1.005-1.025); UACC Culture Trigger NO; Urine Blood 1+ (NEG); Urine Ketones 40 MG/DL (NEG); Urine Protein 2+ MG/DL (NEG-TRACE)
[2021-07-07 14:14] LABS: UPreg QC Valid YES; Urine Pregnancy NEGATIVE (NEGATIVE)
[2021-07-07 14:19] VITALS: BP 145/74; PULSE 77; RESP 20; TEMP 36.9; O2SAT 97
[2021-07-07 14:22] LABS: Mucus Urine 2+ /LPF; Squamous Epithelial Cell Urine TRACE /LPF; WBC Urine 0 /HPF (0-4)
[2021-07-07 16:00] VITALS: BP 118/68; PULSE 85; RESP 20; TEMP 36.6; O2SAT 98
[2021-07-07 17:03] VITALS: RESP 16
[2021-07-07 17:16] LABS: Lactic Acid 0.7 mmol/L (0.5-2.0)
[2021-07-07] MEDS: cefTRIAXone sodium 2 GM in 0.9 % Sodium Chloride 50 ML IV (17:20)
[2021-07-07 17:44] VITALS: BP 115/57; PULSE 84; RESP 18; TEMP 36.9; O2SAT 97
[2021-07-07] MEDS: vancomycin HCL 750 MG in 0.9 % Sodium Chloride 250 ML 265 MG IV (17:57)
[2021-07-07] MEDS: Dextrose 5 % and 0.9 % NaCl 1,000 ML 125 ML IVCONT (17:58)
[2021-07-07] MEDS: Cyclobenzaprine HCl 10 MG TABLET PO (22:01)
--- NOTE | 2021-07-07 22:17 | PC.NURSE ---
pt a&o, no sob or chest pain . provider into discuss discharge plan. pt medicated per oct.
== END 2021-07-07 22:43 | disposition home or self-care (01) ==
PROVIDERS: Emergency Provider Emergency Medicine Emergency Medical Services; PCP Internal Medicine
DX: M54.50 Low back pain, unspecified (principal); M54.6 Pain in thoracic spine; J40 Bronchitis, not specified as acute or chronic; R35.0 Frequency of micturition; R51.9 Headache, unspecified; G89.4 Chronic pain syndrome; M47.817 Spondylosis without myelopathy or radiculopathy, lumbosacral region; M51.36 Other intervertebral disc degeneration, lumbar region; Z79.891 Long term (current) use of opiate analgesic; Z98.890 Other specified postprocedural states
CPT/HCPCS: 36415; 72157; 72158; 80053; 81001; 81025; 83605; 83690; 85025; 85652; 86140; 87040; 96361; 96365; 96366; 96367; 96375; 96376; 99284; 99285; A9585; J0696; J1170; J1200; J1885; J2765; J3370

== ENCOUNTER 2021-08-11 14:10 | Outpatient (REF) | payer MEDICAID, SELFPAY ==
--- NOTE | ~2021-08-11 | CT_ITS ---
EXAMINATION: CT CHEST WITHOUT CONTRAST CLINICAL INFORMATION: Follow-up pulmonary nodules COMPARISON: Previous chest CT scans most recent January 2021 and October 2020 TECHNIQUE: Multidetector volumetric CT imaging of the chest was done. Axial MIP volume rendering provided. Sagittal and coronal reformatted images were obtained. This CT examination was performed using dose optimization techniques as appropriate, variously including the following: *Automated exposure control *Adjustment of mA and/or kV according to patient size (this includes techniques or standardized protocols for targeted exams where dose is matched to indication/reason for exam; i.e. extremities or head) *Use of iterative reconstruction technique DLP: 175 mGy-cm FINDINGS: LUNGS: There is evidence of emphysema. There is mild biapical pleural and parenchymal scarring. There are increased peripheral reticular markings and attenuation questionable for mild interstitial disease. This is greatest in the upper lungs. There are multiple solid and semisolid pulmonary nodules that are stable. Largest pulmonary nodules are a cavitary or mixed cystic and reticular peripheral or subpleural superior segment right lower lobe nodule axial image 190 series 5 and mixed cystic and reticular nodule in the left upper lobe measuring 7 mm axial image 205 series 5. No new pulmonary nodules are seen. MEDIASTINUM: There are small mediastinal lymph nodes that are unchanged. No enlarged lymph nodes are seen. The mediastinum is otherwise normal. PLEURA: There is no pleural effusion. No pleural mass or thickening. AXILLA: There is stable bilateral axillary lymphadenopathy. Lymph nodes are upper normal in size and fatty pascale. No chest wall mass is seen. UPPER ABDOMEN: Unremarkable. OSSEOUS STRUCTURES: Unremarkable. CT/CT chest wo con IMPRESSION: Emphysema. Question mild peripheral interstitial disease. Stable solid and semisolid pulmonary nodules from most recent exams. Fleischner guidelines were followed.
== END 2021-08-11 14:11 | disposition home or self-care (01) ==
LOC: HO.CT 14:10
PROVIDERS: PCP Internal Medicine; Visit Provider Internal Medicine Pulmonary Disease
DX: R91.8 Other nonspecific abnormal finding of lung field (principal)
CPT/HCPCS: 71250; 99211

== ENCOUNTER → 2021-08-24 13:59 | Outpatient (REF) | payer MEDICAID, SELFPAY ==
--- NOTE | 2021-08-24 14:04 | CA_ITS ---
Transthoracic Echocardiogram Patient (Last, First, Middle): Cherri Nash, Gender: Female Date of : 1965 Age: 56 Procedure Date: 08/24/2021 Procedure Type: Transthoracic Echocardiogram Location: OP Height: 165.1 cm Weight: 83.46 kg BSA: 1.91 m2 Heart Rate: bpm BP: 110 / 65 mmHg Glass Lined Tank Repairer: GERRY Mei MD: Everton Stephens MD Truck Mechanic: Jony Dumont MD Symptoms: R06.00 - Dyspnea, unspecified Study Quality: Fair ECG Rhythm: Sinus Conclusions: - 1. Normal LV systolic function with grade I diastolic dysfunction 2. Normal cardiac valvular Dopplers 3. Normal RVSP 4. No pericardial effusion Findings Left Ventricle Normal left ventricular size, thickness, and systolic function. The visually estimated ejection fraction is between 55-60%. Spectral Doppler is indicative of an impaired relaxation filling pattern. E/E prime ratio is <8, consistent with normal filling pressures. Evidence suggests grade I (mild) diastolic dysfunction. Right Ventricle Normal right ventricular cavity size and systolic function. Atria Both atria are normal in size. Interatrial shunt cannot be excluded. Aortic Valve The aortic valve structure and function is likely normal. There is no aortic valve stenosis. There is no aortic valve regurgitation. Mitral Valve Normal mitral valve structure and function. There is trace mitral valve regurgitation. There is no mitral valve stenosis. Pulmonic Valve The pulmonic valve was not well visualized. Tricuspid Valve Likely normal tricuspid valve structure and function. There is trace tricuspid valve regurgitation. The right ventricular systolic pressure is normal. The right ventricular systolic pressure is 23 mmHg. Normal right atrial pressure. There is no evidence of pulmonary hypertension. Pericardium/Pleural There is no evidence of pericardial effusion. Prior Study Comparison No significant change compared to prior study dated: 02/24/2020. Measurements 2D Linear Measurements IVSd: 0.84 0.6-0.9/0.6-1.0 cm LVIDd: 4.42 3.9-5.3/4.2-5.9 cm LVIDd Index: 2.31 2.4-3.2/2.2-3.1 cm/m2 LVIDs: 2.93 2.0-3.6 cm LVPWd: 0.86 0.7-1.1 cm Ao Root: 2.90 2.1-3.5 cm LA Diam: 3.10 2.7-3.8/3.0-4.0 cm LAIDs Index: 1.62 1.5-2.3 cm/m2 LV Mass: 148.35 67-162/88-224 g LV Mass Index: 77.67 43-95/49-115 g/m2 LVOT Diam: 2.00 3.0+(-)1.3 cm 2D Systolic Function EF 4C: 55.60 >55% EF 2C: 56.30 >55% EF BiP: 57.60 >55% Mitral Valve MV Pk E: 0.69 MV PK A: 0.78 MV Decel Time: 254.00 E/A: 0.90 E'Lateral: 8.38 E'Medial: 7.62 E/E' Med: 9.00 E/E' Lat: 8.20 PHT: 74.00 MVA PHT: 2.97 Decel [place]: 2.70 Aortic Valve AoV Pk Tr: 1.22 AoV Mn Tr: 0.80 AoV VTI: 0.21 AoV Pk Grad: 6.00 Aov Mn Grad: 3.00 ROSS Cont.VTI: 2.72 LVOT LVOT Pk Tr: 0.95 LVOT Mn Tr: 0.64 LVOT VTI: 0.18 LVOT Pk Grad: 4.00 LVOT Mn Grad: 2.00 LVOT Diam: 2.00 LVOT Area: 3.14 Diastolic Function MV Pk E: 0.69 MV Pk A: 0.78 E/A: 0.90 E'Medial: 7.62 E/E' Med: 9.00 E' Laterial: 8.38 E/E' Lat: 8.20 Right Ventricle TAPSE (mm): 1.91 TVS' Tr: 11.40 Tricuspid Valve TR Pk Tr: 2.24 TR Pk Grad: 20.00 RA Press: 3.00 RVSP: 23.00 Great Vessels Aorta Ao Root-2D: 2.90 2.0-3.7 cm Ao Asc: 2.70 2.1-3.4 cm Ao Arch: 2.80 Updated in Other Vendor System with Status of Final Jony Dumont MD electronically signed on 08/24/2021 3:33:27 PM with status of Final
== END ==
LOC: HO.CARD 13:59
PROVIDERS: Visit Provider Internal Medicine Pulmonary Disease
DX: R06.00 Dyspnea, unspecified (principal)
CPT/HCPCS: 93306

== ENCOUNTER → 2021-09-09 09:42 | Outpatient (BNVA) | payer MEDICAID, SELFPAY | PROVIDERS: PCP Internal Medicine; Visit Provider Internal Medicine Pulmonary Disease | DX: J44.9 Chronic obstructive pulmonary disease, unspecified (principal); R91.8 Other nonspecific abnormal finding of lung field | CPT/HCPCS: 99212 ==

== ENCOUNTER 2021-09-13 06:45 | Outpatient (REF) | payer MEDICAID, SELFPAY ==
--- NOTE | ~2021-09-13 | FL_ITS ---
EXAMINATION: XR FLUOROSCOPY WITH IMAGES CLINICAL INFORMATION: M47.817 - Spondylosis without myelopathy or radiculopathy COMPARISON: None. TECHNIQUE: Fluoroscopy performed by Dr. Darren Marsh. Fluoroscopy time: 0.9 minutes DAP: 10.1 Gycm2 Images: 2 FINDINGS: There are spinal needles or electrodes overlying the bilateral outer L3, L4, and L5 neural foramen. FL/FL guidance in treatment room IMPRESSION: Fluoroscopy for pain management procedures.
== END 2021-09-13 06:46 | disposition home or self-care (01) ==
LOC: HO.RADIR 06:45
PROVIDERS: Visit Provider Anesthesiology
DX: M47.817 Spondylosis without myelopathy or radiculopathy, lumbosacral region (principal); M51.36 Other intervertebral disc degeneration, lumbar region; G89.4 Chronic pain syndrome
CPT/HCPCS: 64635; 64636; J3300

== ENCOUNTER → 2021-11-09 11:01 | Outpatient (BNVA) | payer MEDICAID, SELFPAY | PROVIDERS: PCP Internal Medicine; Visit Provider Internal Medicine Pulmonary Disease | DX: J44.9 Chronic obstructive pulmonary disease, unspecified (principal); R91.8 Other nonspecific abnormal finding of lung field; R06.00 Dyspnea, unspecified | CPT/HCPCS: 99212 ==

== ENCOUNTER → 2021-11-16 14:27 | Outpatient (BNVA) | payer MEDICAID, SELFPAY | PROVIDERS: PCP Internal Medicine; Visit Provider Anesthesiology | DX: M47.817 Spondylosis without myelopathy or radiculopathy, lumbosacral region (principal); M51.36 Other intervertebral disc degeneration, lumbar region; G89.4 Chronic pain syndrome | CPT/HCPCS: 99212 ==

== ENCOUNTER 2021-11-21 08:19 | Outpatient (REF) | payer MEDICAID, SELFPAY ==
--- NOTE | ~2021-11-21 | CT_ITS ---
EXAMINATION: CT ANGIOGRAM OF THE CHEST WITH AND WITHOUT CONTRAST (CT PULMONARY ANGIOGRAM FOR PE) CLINICAL INFORMATION: Dyspnea, unspecified. COMPARISON: None TECHNIQUE: Prior to contrast administration, noncontrast localization images were obtained. Subsequently, multidetector volumetric imaging was performed from the thoracic inlet to below the diaphragms following the administration of 65 mL Omnipaque 350 intravenous contrast. No contrast reaction reported. Sagittal, coronal, and MIP oblique sagittal reformatted images were obtained on the CT workstation, uploaded to PACS, and reviewed. This CT examination was performed using dose optimization techniques as appropriate, variously including the following: *Automated exposure control *Adjustment of mA and/or kV according to patient size (this includes techniques or standardized protocols for targeted exams where dose is matched to indication/reason for exam; i.e. extremities or head) *Use of iterative reconstruction technique DLP: 132 mGy-cm FINDINGS: QUALITY OF STUDY/CONTRAST BOLUS: Satisfactory. PULMONARY ARTERIES: No central or segmental pulmonary emboli. THORACIC AORTA: No aneurysm or dissection. LUNG: The lungs are well expanded with dependent atelectatic changes right lower lobe. Rest of the lungs are well expanded and clear. There are small cysts in right lung apex. A 5 mm lung nodule is seen in the left major fissure axial image 24/7, likely lymph node. PLEURA: No pleural effusion or pneumothorax. MEDIASTINUM: The thyroid lobes are symmetric and normal. The central trachea and the bronchi are widely patent. Heart size and the great vessels are normal caliber. There are small shotty lymph nodes in the para-aortic space measuring 6 mm and less. CHEST WALL/AXILLA: No evidence of abnormal lymph nodes. The chest wall is unremarkable. OSSEOUS STRUCTURES: No lytic or sclerotic process seen. UPPER ABDOMEN: Visualized liver, spleen, pancreas and bilateral adrenal glands unremarkable. No reflux of contrast into the hepatic veins to suggest elevated right heart pressures. CT/CT angio chest PE protocol IMPRESSION: No evidence of PE. No evidence of aortic aortic dissection or aneurysm. Small cyst right lung apex with atelectasis right lung base. Intrafissural 5 mm lymph node. VTE: Negative
[2021-11-21 09:08] LABS: Blood Urea Nitrogen 13 mg/dL (9-16); Estimated Glomerular Filt Rate 41
[2021-11-21] MEDS: iohexoL 350 MG/ML 75 ML INFUS..BTL 65 ML IV (10:33)
== END 2021-11-21 08:20 | disposition home or self-care (01) ==
LOC: HO.CT 08:19
PROVIDERS: Internal Medicine Pulmonary Disease; Visit Provider Hospitalist
DX: R06.00 Dyspnea, unspecified (principal); J44.1 Chronic obstructive pulmonary disease with (acute) exacerbation
CPT/HCPCS: 36415; 71275; 82565; 84520; Q9967

== ENCOUNTER → 2021-12-28 12:27 | Outpatient (BNVA) | payer MEDICAID, SELFPAY | PROVIDERS: PCP Internal Medicine; Referring Provider Internal Medicine Pulmonary Disease; Visit Provider Internal Medicine | DX: R06.02 Shortness of breath (principal); R07.2 Precordial pain; I65.29 Occlusion and stenosis of unspecified carotid artery; F17.210 Nicotine dependence, cigarettes, uncomplicated | CPT/HCPCS: 93005; 99202 ==

== ENCOUNTER 2022-02-10 13:41 | Outpatient (REF) | payer MEDICAID, SELFPAY ==
--- NOTE | ~2022-02-10 | MM_ITS ---
EXAMINATION: MM SCREENING DIGITAL BREAST TOMOSYNTHESIS, BILATERAL CLINICAL INFORMATION: Screening. Asymptomatic. The lifetime risk of breast cancer based on the Tyrer-Cuzick Model is 16%. COMPARISON: Outside mammography.: 06/29/2020, 06/26/2019, 06/11/2018 ([facility]). TECHNIQUE: Digital breast tomosynthesis is performed in both the craniocaudal and mediolateral oblique views along with computer-aided detection (CAD). Synthesized 2D images are generated from the tomosynthesis. FINDINGS: The breasts are heterogeneously dense, which may obscure small masses (ACR BI-RADS breast composition Category c). Breast tissue composition borders on average fibroglandular. There are no significant masses, abnormal calcifications, or other abnormalities. There is biopsy clip marker central right breast. No architectural abnormality. The axilla and skin contours are unremarkable. No significant changes from prior outside studies. MM/MM tomosynthesis screening BI IMPRESSION: No mammographic evidence of malignancy. ASSESSMENT: BI-RADS 1: Negative RECOMMENDATION: Routine annual mammography screening. This patient's information was entered into a reminder system with a target due date for their next mammogram.
== END 2022-02-10 13:42 | disposition home or self-care (01) ==
LOC: HO.MAMMO 13:41
PROVIDERS: Visit Provider Internal Medicine
DX: Z12.31 Encounter for screening mammogram for malignant neoplasm of breast (principal)
CPT/HCPCS: 77063; 77067

== ENCOUNTER 2022-03-06 09:11 | Outpatient (REF) | payer MEDICAID, SELFPAY ==
--- NOTE | ~2022-03-06 | CT_ITS ---
EXAMINATION: CT CHEST WITHOUT CONTRAST CLINICAL INFORMATION: Pulmonary nodules. COMPARISON: CT chest 11/13/2021, 08/11/2021 and 11/01/2020. TECHNIQUE: Multidetector volumetric CT imaging of the chest was done. Axial MIP volume rendering provided. Sagittal and coronal reformatted images were obtained. This CT examination was performed using dose optimization techniques as appropriate, variously including the following: *Automated exposure control *Adjustment of mA and/or kV according to patient size (this includes techniques or standardized protocols for targeted exams where dose is matched to indication/reason for exam; i.e. extremities or head) *Use of iterative reconstruction technique DLP: 138 mGy-cm. FINDINGS: OVERHEAD CLEANER: Unremarkable LUNGS: There are mild paraseptal emphysematous changes. Minimal bilateral apical parenchymal scarring and cystic changes are seen. Subpleural reticular interstitial changes are prominent similar previous study. There are 2 pulmonary nodules in the right upper lobe, peripherally based, better visualized on 8 mm thick slices on axial image 29/8. There is a 4 mm subpleural nodule left upper lobe axial image 121/7 which is not well visualized on previous study. There are 3 mm nodule seen in the right upper lobe on axial image 119/7,123/7, a focal fissural nodule measuring 6 mm likely a lymph node, a 1 cm cavitary nodule or thickened bulla right lower lobe superior segment image 230/7. Cavitary lesion seen on 08/15/2021 CT in left upper lobe is not visualized at this time. It may have resolved and may represent thick-walled bulla. There is no new ground-glass attenuation seen. MEDIASTINUM: The thyroid lobes are symmetric and normal. The central trachea and bronchi are widely patent. Heart size and the great vessels are normal caliber. There are para-aortic small lymph nodes measuring 1 cm, stable. No pericardial effusion seen. There are no coronary artery calcifications. PLEURA: There is minimal bilateral apical pleural thickening. No evidence of pleural effusion. AXILLA: No lymphadenopathy. UPPER ABDOMEN: Visualized liver, spleen, pancreas and bilateral adrenal glands unremarkable. OSSEOUS STRUCTURES: No lytic or sclerotic process seen. CT/CT chest wo con IMPRESSION: Paraseptal emphysema with bilateral apical parenchymal scarring and cystic changes. Small cavitary lesion right lower lobe has improved. Previously seen cavitary lesion left upper lobe is not seen. There is no ground-glass attenuation or new cavitary lesions. Small pulmonary nodules are stable. No new suspicious pulmonary nodules, mass or consolidation. Recommend continued follow-up. Fleischner guidelines were followed.
== END 2022-03-06 09:12 | disposition home or self-care (01) ==
LOC: HO.CT 09:11
PROVIDERS: Visit Provider Internal Medicine Pulmonary Disease
DX: R91.8 Other nonspecific abnormal finding of lung field (principal)
CPT/HCPCS: 71250

== ENCOUNTER → 2022-04-13 09:50 | Outpatient (BNVA) | payer MEDICAID, SELFPAY | PROVIDERS: PCP Nurse Practitioner Primary Care; Visit Provider Internal Medicine Pulmonary Disease | DX: R06.02 Shortness of breath (principal); R91.8 Other nonspecific abnormal finding of lung field; J44.1 Chronic obstructive pulmonary disease with (acute) exacerbation | CPT/HCPCS: 94618; 99212 ==

== ENCOUNTER → 2022-08-01 13:01 | Outpatient (BNVA) | payer MEDICAID, SELFPAY | PROVIDERS: PCP Nurse Practitioner Primary Care; Visit Provider Internal Medicine Pulmonary Disease | DX: J44.1 Chronic obstructive pulmonary disease with (acute) exacerbation (principal); R06.00 Dyspnea, unspecified | CPT/HCPCS: 99212 ==

== ENCOUNTER 2022-09-04 10:46 | Outpatient (REF) | payer MEDICAID, SELFPAY ==
--- NOTE | 2022-09-04 17:44 | PFT_ITS ---
FLOWS: FEV1 88% of predicted at 2.46 L. FVC 96% of predicted at 3.40 L. FEV1 to FVC ratio of 0.72. Positive bronchodilator response. LUNG VOLUMES: Total lung capacity 113% of predicted at 5.91 L. Residual volume 138% of predicted at 2.70 L. Slow vital capacity 98% of predicted at 3.21 L. Expiratory reserve volume 34% of predicted at 0.34 L. Diffusion capacity is mildly decreased. In comparison to pulmonary function test performed in September 2019, FEV1, FVC, and RV have been without significant changes; total lung capacity has increased by 0.42 L; slow vital capacity has increased by 0.23 L; expiratory reserve volume has increased by 0.26 L; diffusion capacity has improved by 3.58 mL/minute per mmHg. IMPRESSION: No obstructive or restrictive ventilatory defect. Positive bronchodilator response. Decreased expiratory reserve volume suggests extrathoracic restriction likely secondary to abdominal obesity. Decreased diffusion capacity suggests emphysema. MD GRUPO Carmen/MODL / [id number]
== END 2022-09-04 10:47 | disposition home or self-care (01) ==
LOC: HO.RESP 10:46
PROVIDERS: Visit Provider Internal Medicine Pulmonary Disease
DX: J44.1 Chronic obstructive pulmonary disease with (acute) exacerbation (principal)
CPT/HCPCS: 94060; 94727; 94729

== ENCOUNTER → 2022-09-20 13:40 | Outpatient (BNVA) | payer MEDICAID, SELFPAY | PROVIDERS: PCP Nurse Practitioner Primary Care; Visit Provider Internal Medicine Pulmonary Disease | DX: J44.1 Chronic obstructive pulmonary disease with (acute) exacerbation (principal); J34.2 Deviated nasal septum; R06.00 Dyspnea, unspecified; R91.8 Other nonspecific abnormal finding of lung field; F17.210 Nicotine dependence, cigarettes, uncomplicated | CPT/HCPCS: 99212 ==

== ENCOUNTER 2022-11-28 14:37 | Emergency (ER) | payer MEDICAID, SELFPAY ==
--- NOTE | ~2022-11-28 | XR_ITS ---
EXAMINATION: XR CHEST CLINICAL INFORMATION: Shortness of breath COMPARISON: None available. TECHNIQUE: 2 views of the chest were obtained. FINDINGS: Notable peribronchial thickening. Emphysematous changes upper lung zones with biapical pleural thickening. No significant abnormality is otherwise noted involving the heart, lungs, mediastinum, bony thorax or soft tissues. XR/XR chest 2V IMPRESSION: Changes of nonspecific bronchitis No focal infiltrate.
--- NOTE | ~2022-11-28 | CT_ITS ---
EXAMINATION: CT ABDOMEN AND PELVIS WITHOUT CONTRAST CLINICAL INFORMATION: Constipation. COMPARISON: CT abdomen pelvis 02/09/2017 TECHNIQUE: Multidetector volumetric imaging was performed from the superior aspect of the liver through the pubic symphysis. Sagittal and coronal reformatted images were obtained on the technologist's workstation. This CT examination was performed using dose optimization techniques as appropriate, variously including the following: *Automated exposure control *Adjustment of mA and/or kV according to patient size (this includes techniques or standardized protocols for targeted exams where dose is matched to indication/reason for exam; i.e. extremities or head) *Use of iterative reconstruction technique DLP: 564 mGy-cm FINDINGS: LUNG BASES: The visualized lung bases are unremarkable. LIVER, GALLBLADDER, AND BILIARY TREE: The liver is normal in size, shape, and attenuation. No focal hepatic lesion or biliary ductal dilatation is present. The gallbladder is unremarkable with no evidence of radiopaque gallstones, gallbladder wall thickening, or obvious pericholecystic inflammatory changes. PANCREAS: Unremarkable. SPLEEN: Unremarkable. ADRENAL GLANDS: Unremarkable. KIDNEYS AND URETERS: The kidneys are normal in size, shape, and attenuation. No hydronephrosis, hydroureter, or calculi seen. No perinephric stranding. BLADDER: Unremarkable. GASTROINTESTINAL TRACT: There are scattered diverticula of the colon. There is no diverticulitis. There is no bowel wall thickening /edema. There is no bowel obstruction. There is a large volume of stool in the colon. Stool present from the cecum through the pelvis. The appendix is normal . The small bowel loops are unremarkable. The stomach is normal. There is no hiatal hernia. ABDOMINAL WALL: No significant hernia is appreciated. LYMPH NODES: Normal. VASCULAR: Unremarkable. PELVIC VISCERA: Unremarkable. OSSEOUS STRUCTURES: Unremarkable. CT/CT abdomen pelvis wo IV con IMPRESSION: No acute abnormality CT scan abdomen pelvis. There is a large volume of stool in the colon but there is no acute abnormality of the bowel. Fleischner guidelines were followed.
--- NOTE | 2022-11-28 15:09 | ED_ITS ---
HPI - Abdominal Pain General Chief Complaint: Abdominal Pain <FLORENCIA Ledesma - Last Filed: 11/28/22 15:11> Stated Complaint: Constipated <FLORENCIA Ledesma - Last Filed: 11/28/22 15:11> Time Seen by Provider: 11/28/22 17:13 <FLORENCIA Ledesma - Last Filed: 11/28/22 15:11> Source: patient <Jeanne Perez MD - Last Filed: 11/28/22 22:34> Mode of arrival: ambulatory <Jeanne Perez MD - Last Filed: 11/28/22 22:34> History of Present Illness HPI narrative: 57-year-old female with worsening abdominal distension discomfort that she states is pushing up onto her lungs causing her to be short of breath. She reports nausea without fever, chills and states that she has had intermittent diarrhea and constipation. <Jeanne Perez MD - Last Filed: 11/28/22 22:34> Related Data Home Medications: Home Medications Medication Instructions Recorded Confirmed clonazepam 2 mg tablet (Klonopin) 2 mg PO TID 01/31/21 12/28/21 ergocalciferol (vitamin D2) 1,250 1,250 mcg PO QWEEK 01/31/21 12/28/21 mcg (50,000 unit) capsule (Drisdol) folic acid 1 mg tablet 1 mg PO DAILY 01/31/21 12/28/21 rosuvastatin 5 mg tablet 5 mg PO DAILY 01/31/21 12/28/21 ziprasidone HCl 80 mg capsule 80 mg PO BID 01/31/21 12/28/21 (Geodon) zolpidem 10 mg tablet (Ambien) 10 mg PO BEDTIME PRN Sleep 01/31/21 12/28/21 clonidine HCl 0.1 mg tablet 3 tab PO BEDTIME insomnia 07/07/21 12/28/21 dextroamphetamine-amphetamine 20 20 mg PO DAILY@1400 07/07/21 12/28/21 mg tablet dextroamphetamine-amphetamine ER 30 mg PO DAILY 07/07/21 12/28/21 30 mg 24hr capsule,extend release (Adderall XR) sertraline 100 mg tablet 2 tab PO QAM 11/11/21 05/04/22 ibuprofen 800 mg tablet 1 tab PO TID 07/25/21 12/28/21 buprenorphine 12 mg-naloxone 3 mg 30 mg sublingual DAILY 12/28/21 12/28/21 sublingual film (Suboxone) lurasidone 80 mg tablet (Latuda) 80 mg PO QAM 12/28/21 12/28/21 Previous Rx's Medication Instructions Recorded omeprazole 20 mg capsule,delayed 20 mg PO BID #60 caps 08/16/21 release methylcellulose (laxative) 500 mg 500 mg PO BID 30 days #60 tabs 11/23/21 tablet (Citrucel) albuterol sulfate 90 mcg/actuation 2 puff PO Q4-6H PRN shortness of 08/01/22 aerosol inhaler breath or wheezing #1 ea cefuroxime axetil 500 mg tablet 500 mg PO BID 10 days #20 tabs 08/01/22 ipratropium 0.5 mg-albuterol 3 mg 3 ml inhalation Q6H PRN for 09/20/22 (2.5 mg base)/3 mL nebulization wheezing 30 days #360 mL soln theophylline 400 mg 400 mg PO QAM #30 tabs 10/26/22 tablet,extended release 24 hr tiotropium 2.5 mcg-olodaterol 2.5 2 puff PO DAILY #4 grams 10/26/22 mcg/actuation mist for inhalation (Stiolto Respimat) ciprofloxacin HCl 250 mg tablet 250 mg PO BID 3 days #6 tabs 11/28/22 <FLORENCIA Ledesma - Last Filed: 11/28/22 15:11> Allergies/Adverse Reactions: Allergies Allergy/AdvReac Type Severity Reaction Status Date / Time sulfamethoxazole Allergy Mild inflamed Verified 11/28/22 15:10 [From Bactrim] hives, rash, trimethoprim [From Bactrim] Allergy Mild inflamed Verified 11/28/22 15:10 hives, rash, amoxicillin [AMOXICILLIN] Allergy Unknown HIVES Verified 11/28/22 15:10 aspirin Allergy Unknown unknown Verified 11/28/22 15:10 codeine Allergy Unknown unknown Verified 11/28/22 15:10 morphine Allergy Unknown unknown Verified 11/28/22 15:10 Penicillins [PENICILLINS] Allergy Unknown HIVES Verified 11/28/22 15:10 Sulfa (Sulfonamide Allergy Unknown Unknown Verified 11/28/22 15:10 Antibiotics) <FLORENCIA Ledesma - Last Filed: 11/28/22 15:11> Review of Systems Review of Systems Pertinent positives and negatives as stated in HPI <Jeanne Perez MD - Last Filed: 11/28/22 22:34> PMFSH Past Medical History Source: nursing notes reviewed <Jeanne Perez MD - Last Filed: 11/28/22 22:34> Medical History: Medical History Acid reflux Adenomatous colon polyp Bipolar disorder Chronic constipation Chronic pain syndrome COVID-19 vaccine series completed Deviated septum Disc degeneration, lumbar Emphysema lung Spondylosis 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 <FLORENCIA Ledesma - Last Filed: 11/28/22 15:11> Surgical History: Surgical History History of esophagogastroduodenoscopy (EGD) Hx of colonoscopy <FLORENCIA Ledesma - Last Filed: 11/28/22 15:11> Family History Family History: Family History Father No problems noted. Mother No problems noted. <FLORENCIA Ledesma - Last Filed: 11/28/22 15:11> Social History Social History: Social History Household Members: Children Alcohol intake: never Patient Tobacco Use Status: Current everyday Tobacco user Tobacco use type: Cigarette Smoked in Last 30 Days: No Use of substances other than those prescribed or required for medical reasons: No Advance Directives: No Advance Directives Information Provided: No Current occupational status: unemployed <FLORENCIA Ledesma - Last Filed: 11/28/22 15:11> Physical Exam ED Vital Signs: Vital Signs - 24 hr 11/28/22 15:10 11/28/22 17:16 11/28/22 17:47 Temperature 98 F 98.2 F 98.1 F Pulse Rate 97 72 67 Respiratory Rate 17 18 16 Blood Pressure 93/66 100/65 97/53 L Pulse Oximetry 98 98 98 Oxygen Delivery Method Room Air Room Air 11/28/22 20:59 11/28/22 20:56 Temperature 98.2 F Pulse Rate 64 64 Respiratory Rate 16 16 Blood Pressure 102/68 Pulse Oximetry 96 Oxygen Delivery Method Room Air BMI result Body Mass Index 29.2 <FLORENCIA Ledesma - Last Filed: 11/28/22 15:11> Vital Signs - 24 hr 11/28/22 15:10 11/28/22 17:16 11/28/22 17:47 Temperature 98 F 98.2 F 98.1 F Pulse Rate 97 72 67 Respiratory Rate 17 18 16 Blood Pressure 93/66 100/65 97/53 L Pulse Oximetry 98 98 98 Oxygen Delivery Method Room Air Room Air 11/28/22 20:59 11/28/22 20:56 Temperature 98.2 F Pulse Rate 64 64 Respiratory Rate 16 16 Blood Pressure 102/68 Pulse Oximetry 96 Oxygen Delivery Method Room Air BMI result Body Mass Index 29.2 VITAL SIGNS: Reviewed. GENERAL: Well developed, well nourished, in no acute distress. HEAD: Normocephalic/atraumatic EYES: PERRLA, EOMI i EARS: Ext canals without abnormality NOSE: Nares patent bilateral OROPHARYNX: no oral lesions noted, posterior pharynx clear NECK: Supple, no adenopathy LUNGS: Bilateral coarse rhonchi, no tachypnea SpO2<98> CARDIOVASCULAR: Regular rate and rhythm without noted murmurs, no JVD or lower extremity edema. ABDOMEN: Soft, diffuse tenderness, distended with hypoactive bowel sounds. MUSCULOSKELETAL: No tenderness, deformities, or effusions noted on gross inspection. EXTREMITIES: No cyanosis, clubbing or edema. SKIN: Inspection of the skin reveals no rashes NEUROLOGIC: Alert and oriented x 4. Strength and sensation to light touch were grossly intact x 4. <Jeanne Perez MD - Last Filed: 11/28/22 22:34> Course Course Course Narrative: This is an RME: Additional HPI, ROS, PE not included below will be deferred to primary provider. 57 year old female hx of carotid artery stenosis, COPD, tubular adenoma him a depression, hypergammaglobulinemia, chronic constipation, acid reflux presents with no bowel movement for 3 months, last bowel movement she states was in September was sent in by her primary care provider. Patient reports she still passing gas. Reports diffuse abdominal pain. Also reporting fatigue, malaise, myalgias, nausea. Use the or denies fev ers, chills, chest pain, shortness of breath, vomiting. Not followed by GI at this time last saw them last year physical exam abdomen diffusely tender, distended. Vital signs stable plan at this time labs, imaging, urine. <FLORENCIA Ledesma - Last Filed: 11/28/22 15:11> Medical Decision Making Medical Decision Making MDM Narrative: 57-year-old female with history of COPD comes in with worsening abdominal distension and shortness of breath. Will give DuoNeb, get labs/UA/UDS, CT scan Reviewed all investigations in my interpretation is that this patient has constipation, UTI. She is stable for discharge to home. <Jeanne Perez MD - Last Filed: 11/28/22 22:34> Differential Diagnosis Please see the discussion above <Jeanne Perez MD - Last Filed: 11/28/22 22:34> Lab Data Please see the discussion above <Jeanne Perez MD - Last Filed: 11/28/22 22:34> Result Diagrams: 11/28/22 15:47 11/28/22 15:47 <FLORENCIA Ledesma - Last Filed: 11/28/22 15:11> Labs: Lab Results 11/28/22 11/28/22 11/28/22 Range/Units 15:47 15:47 15:47 WBC 10.7 (4.8-10.8) X10*3/uL RBC 4.76 (4.20-5.50) X10*6/uL Hgb 13.5 (12.0-16.0) g/dl Hct 40.6 (37.0-47.0) % MCV 85.3 (80.0-98.0) fL MCH 28.4 (27.0-33.0) pg MCHC 33.3 (31.0-35.0) g/dl RDW 15.0 (11.0-16.0) % Plt Count 254 D (160-400) X10*3/uL MPV 10.3 (9.4-12.3) fL Immature Gran % (Auto) 0.2 (0.0-0.4) % Neut % (Auto) 62.4 (45-73) % Lymph % (Auto) 28.9 (20-40) % [place] % (Auto) 5.7 (2-11) % Eos % (Auto) 1.9 (0-4) % Baso % (Auto) 0.9 (0-2) % Lymph # (Auto) 3.1 (1.2-4.9) X10*3/uL [place] # (Auto) 0.6 (0.1-1.2) X10*3/uL Eos # (Auto) 0.2 (0.0-0.4) X10*3/uL Baso # (Auto) 0.1 (0.0-0.2) X10*3/uL Abs Immat Gran (auto) 0.02 (0.00-0.03) X10*3/uL Absolute Neuts (auto) 6.7 (2.0-8.3) x10*3/uL Absolute Nucleated RBC 0.000 (0.0-0.012) X10*3/uL Nucleated RBC % (auto) 0.0 (0.0-0.2) /100WBC Sodium 140 (135-145) mmol/L Potassium 4.4 D (3.3-5.1) mmol/L Chloride 103 (96-108) mmol/L Carbon Dioxide 27 (22-29) mmol/L Anion Gap 14 (12-20) BUN 12 (9-16) mg/dL Creatinine 1.41 H (0.5-1.4) mg/dL Estim Creat Clear Calc 47.0 Estimated GFR 39 Random Glucose 93 (60-115) mg/dL Calcium 10.2 (8.4-10.2) mg/dL Magnesium 2.1 (1.6-2.6) mg/dL Total Bilirubin 0.4 (0.0-1.0) mg/dL AST 55 H (5-31) U/L ALT 22 (0-31) U/L Alkaline Phosphatase 95 (39-117) U/L Total Protein 7.3 (6.5-8.0) g/dL Albumin 4.1 (3.5-5.0) g/dL Beta HCG, Quant < 2 mIU/mL Urine Color Urine Appearance Urine pH (5.0-9.0) Ur Specific [place] (1.005-1.025) Urine Protein (Neg-Trace) mg/dL Urine Glucose (UA) (Negative) mg/dL Urine Ketones (Negative) mg/dL Urine Blood (Negative) Urine Nitrite (Negative) Ur Leukocyte Esterase (Negative) Urine RBC (0-2) /HPF Urine WBC (0-5) /HPF Ur Squamous Epith Cells (0-2) /HPF Urine Bacteria (None Seen) Hyaline Casts (0-2) /LPF Urine Opiates Screen (Not Detect) Urine Fentanyl Screen (Not Detect) Ur Barbiturates Screen (Not Detect) Ur Phencyclidine Scrn (Not Detect) Ur Amphetamines Screen (Not Detect) U Benzodiazepines Scrn (Not Detect) Urine Cocaine Screen (Not Detect) U Marijuana (THC) Screen (Not Detect) 11/28/22 11/28/22 Range/Units 21:58 21:58 WBC (4.8-10.8) X10*3/uL RBC (4.20-5.50) X10*6/uL Hgb (12.0-16.0) g/dl Hct (37.0-47.0) % MCV (80.0-98.0) fL MCH (27.0-33.0) pg MCHC (31.0-35.0) g/dl RDW (11.0-16.0) % Plt Count (160-400) X10*3/uL MPV (9.4-12.3) fL Immature Gran % (Auto) (0.0-0.4) % Neut % (Auto) (45-73) % Lymph % (Auto) (20-40) % [place] % (Auto) (2-11) % Eos % (Auto) (0-4) % Baso % (Auto) (0-2) % Lymph # (Auto) (1.2-4.9) X10*3/uL [place] # (Auto) (0.1-1.2) X10*3/uL Eos # (Auto) (0.0-0.4) X10*3/uL Baso # (Auto) (0.0-0.2) X10*3/uL Abs Immat Gran (auto) (0.00-0.03) X10*3/uL Absolute Neuts (auto) (2.0-8.3) x10*3/uL Absolute Nucleated RBC (0.0-0.012) X10*3/uL Nucleated RBC % (auto) (0.0-0.2) /100WBC Sodium (135-145) mmol/L Potassium (3.3-5.1) mmol/L Chloride (96-108) mmol/L Carbon Dioxide (22-29) mmol/L Anion Gap (12-20) BUN (9-16) mg/dL Creatinine (0.5-1.4) mg/dL Estim Creat Clear Calc Estimated GFR Random Glucose (60-115) mg/dL Calcium (8.4-10.2) mg/dL Magnesium (1.6-2.6) mg/dL Total Bilirubin (0.0-1.0) mg/dL AST (5-31) U/L ALT (0-31) U/L Alkaline Phosphatase (39-117) U/L Total Protein (6.5-8.0) g/dL Albumin (3.5-5.0) g/dL Beta HCG, Quant mIU/mL Urine Color Yellow Urine Appearance Clear Urine pH 6.0 (5.0-9.0) Ur Specific [place] 1.010 (1.005-1.025) Urine Protein Negative (Neg-Trace) mg/dL Urine Glucose (UA) Negative (Negative) mg/dL Urine Ketones Negative (Negative) mg/dL Urine Blood Trace H (Negative) Urine Nitrite Negative (Negative) Ur Leukocyte Esterase Trace H (Negative) Urine RBC 3-5 H (0-2) /HPF Urine WBC 0-5 (0-5) /HPF Ur Squamous Epith Cells 0-2 (0-2) /HPF Urine Bacteria None Seen (None Seen) Hyaline Casts 0-2 (0-2) /LPF Urine Opiates Screen Not Detected (Not Detect) Urine Fentanyl Screen Not Detected (Not Detect) Ur Barbiturates Screen Not Detected (Not Detect) Ur Phencyclidine Scrn Not Detected (Not Detect) Ur Amphetamines Screen POSITIVE H (Not Detect) U Benzodiazepines Scrn POSITIVE H (Not Detect) Urine Cocaine Screen Not Detected (Not Detect) U Marijuana (THC) Screen Not Detected (Not Detect) <FLORENCIA Ledesma - Last Filed: 11/28/22 15:11> Lab Results 11/28/22 11/28/22 11/28/22 Range/Units 15:47 15:47 15:47 WBC 10.7 (4.8-10.8) X10*3/uL RBC 4.76 (4.20-5.50) X10*6/uL Hgb 13.5 (12.0-16.0) g/dl Hct 40.6 (37.0-47.0) % MCV 85.3 (80.0-98.0) fL MCH 28.4 (27.0-33.0) pg MCHC 33.3 (31.0-35.0) g/dl RDW 15.0 (11.0-16.0) % Plt Count 254 D (160-400) X10*3/uL MPV 10.3 (9.4-12.3) fL Immature Gran % (Auto) 0.2 (0.0-0.4) % Neut % (Auto) 62.4 (45-73) % Lymph % (Auto) 28.9 (20-40) % [place] % (Auto) 5.7 (2-11) % Eos % (Auto) 1.9 (0-4) % Baso % (Auto) 0.9 (0-2) % Lymph # (Auto) 3.1 (1.2-4.9) X10*3/uL [place] # (Auto) 0.6 (0.1-1.2) X10*3/uL Eos # (Auto) 0.2 (0.0-0.4) X10*3/uL Baso # (Auto) 0.1 (0.0-0.2) X10*3/uL Abs Immat Gran (auto) 0.02 (0.00-0.03) X10*3/uL Absolute Neuts (auto) 6.7 (2.0-8.3) x10*3/uL Absolute Nucleated RBC 0.000 (0.0-0.012) X10*3/uL Nucleated RBC % (auto) 0.0 (0.0-0.2) /100WBC Sodium 140 (135-145) mmol/L Potassium 4.4 D (3.3-5.1) mmol/L Chloride 103 (96-108) mmol/L Carbon Dioxide 27 (22-29) mmol/L Anion Gap 14 (12-20) BUN 12 (9-16) mg/dL Creatinine 1.41 H (0.5-1.4) mg/dL Estim Creat Clear Calc 47.0 Estimated GFR 39 Random Glucose 93 (60-115) mg/dL Calcium 10.2 (8.4-10.2) mg/dL Magnesium 2.1 (1.6-2.6) mg/dL Total Bilirubin 0.4 (0.0-1.0) mg/dL AST 55 H (5-31) U/L ALT 22 (0-31) U/L Alkaline Phosphatase 95 (39-117) U/L Total Protein 7.3 (6.5-8.0) g/dL Albumin 4.1 (3.5-5.0) g/dL Beta HCG, Quant < 2 mIU/mL Urine Color Urine Appearance Urine pH (5.0-9.0) Ur Specific [place] (1.005-1.025) Urine Protein (Neg-Trace) mg/dL Urine Glucose (UA) (Negative) mg/dL Urine Ketones (Negative) mg/dL Urine Blood (Negative) Urine Nitrite (Negative) Ur Leukocyte Esterase (Negative) Urine RBC (0-2) /HPF Urine WBC (0-5) /HPF Ur Squamous Epith Cells (0-2) /HPF Urine Bacteria (None Seen) Hyaline Casts (0-2) /LPF Urine Opiates Screen (Not Detect) Urine Fentanyl Screen (Not Detect) Ur Barbiturates Screen (Not Detect) Ur Phencyclidine Scrn (Not Detect) Ur Amphetamines Screen (Not Detect) U Benzodiazepines Scrn (Not Detect) Urine Cocaine Screen (Not Detect) U Marijuana (THC) Screen (Not Detect) 11/28/22 11/28/22 Range/Units 21:58 21:58 WBC (4.8-10.8) X10*3/uL RBC (4.20-5.50) X10*6/uL Hgb (12.0-16.0) g/dl Hct (37.0-47.0) % MCV (80.0-98.0) fL MCH (27.0-33.0) pg MCHC (31.0-35.0) g/dl RDW (11.0-16.0) % Plt Count (160-400) X10*3/uL MPV (9.4-12.3) fL Immature Gran % (Auto) (0.0-0.4) % Neut % (Auto) (45-73) % Lymph % (Auto) (20-40) % [place] % (Auto) (2-11) % Eos % (Auto) (0-4) % Baso % (Auto) (0-2) % Lymph # (Auto) (1.2-4.9) X10*3/uL [place] # (Auto) (0.1-1.2) X10*3/uL Eos # (Auto) (0.0-0.4) X10*3/uL Baso # (Auto) (0.0-0.2) X10*3/uL Abs Immat Gran (auto) (0.00-0.03) X10*3/uL Absolute Neuts (auto) (2.0-8.3) x10*3/uL Absolute Nucleated RBC (0.0-0.012) X10*3/uL Nucleated RBC % (auto) (0.0-0.2) /100WBC Sodium (135-145) mmol/L Potassium (3.3-5.1) mmol/L Chloride (96-108) mmol/L Carbon Dioxide (22-29) mmol/L Anion Gap (12-20) BUN (9-16) mg/dL Creatinine (0.5-1.4) mg/dL Estim Creat Clear Calc Estimated GFR Random Glucose (60-115) mg/dL Calcium (8.4-10.2) mg/dL Magnesium (1.6-2.6) mg/dL Total Bilirubin (0.0-1.0) mg/dL AST (5-31) U/L ALT (0-31) U/L Alkaline Phosphatase (39-117) U/L Total Protein (6.5-8.0) g/dL Albumin (3.5-5.0) g/dL Beta HCG, Quant mIU/mL Urine Color Yellow Urine Appearance Clear Urine pH 6.0 (5.0-9.0) Ur Specific [place] 1.010 (1.005-1.025) Urine Protein Negative (Neg-Trace) mg/dL Urine Glucose (UA) Negative (Negative) mg/dL Urine Ketones Negative (Negative) mg/dL Urine Blood Trace H (Negative) Urine Nitrite Negative (Negative) Ur Leukocyte Esterase Trace H (Negative) Urine RBC 3-5 H (0-2) /HPF Urine WBC 0-5 (0-5) /HPF Ur Squamous Epith Cells 0-2 (0-2) /HPF Urine Bacteria None Seen (None Seen) Hyaline Casts 0-2 (0-2) /LPF Urine Opiates Screen Not Detected (Not Detect) Urine Fentanyl Screen Not Detected (Not Detect) Ur Barbiturates Screen Not Detected (Not Detect) Ur Phencyclidine Scrn Not Detected (Not Detect) Ur Amphetamines Screen POSITIVE H (Not Detect) U Benzodiazepines Scrn POSITIVE H (Not Detect) Urine Cocaine Screen Not Detected (Not Detect) U Marijuana (THC) Screen Not Detected (Not Detect) <Jeanne Perez MD - Last Filed: 11/28/22 22:34> Radiology Impression Radiologist Impression: My interpretation is in agreement with radiology's impression of the imaging studies. <Jeanne Perez MD - Last Filed: 11/28/22 22:34> External Record Review External record reviewed: Prior outpatient labs <Jeanne Perez MD - Last Filed: 11/28/22 22:34> Medications Administered Discontinued Medications Generic Name Dose Route Start Last Admin Trade Name Laureen PRN Reason Stop Dose Admin Albuterol Sulfate 10 mg/ 0 mg 11/28/22 20:15 11/28/22 20:56 Ipratropium [place] 0.5 mg INHALE 11/28/22 20:16 10 each ONCE ONE Administration Docusate Sodium 100 mg 11/28/22 15:11 11/28/22 17:28 Docusate Sodium 100 Mg Capsule PO 11/28/22 15:12 100 mg ONCE ONE Administration Senna 15 ml 11/28/22 15:11 11/28/22 17:28 Senna [place] Extract Oral Syrup 15 Ml Syrup PO 11/28/22 15:12 15 ml ONCE ONE Administration Simethicone 160 mg 11/28/22 15:11 11/28/22 17:27 Simethicone 80 Mg Tab.Chew PO 11/28/22 15:12 160 mg ONCE ONE Administration <FLORENCIA Ledesma - Last Filed: 11/28/22 15:11> Medications Administered Discontinued Medications Generic Name Dose Route Start Last Admin Trade Name Laureen PRN Reason Stop Dose Admin Albuterol Sulfate 10 mg/ 0 mg 11/28/22 20:15 11/28/22 20:56 Ipratropium [place] 0.5 mg INHALE 11/28/22 20:16 10 each ONCE ONE Administration Docusate Sodium 100 mg 11/28/22 15:11 11/28/22 17:28 Docusate Sodium 100 Mg Capsule PO 11/28/22 15:12 100 mg ONCE ONE Administration Senna 15 ml 11/28/22 15:11 11/28/22 17:28 Senna [place] Extract Oral Syrup 15 Ml Syrup PO 11/28/22 15:12 15 ml ONCE ONE Administration Simethicone 160 mg 11/28/22 15:11 11/28/22 17:27 Simethicone 80 Mg Tab.Chew PO 11/28/22 15:12 160 mg ONCE ONE Administration <Jeanne Perez MD - Last Filed: 11/28/22 22:34> Discharge Plan Discharge Clinical Impression: Constipation, Abdominal discomfort, UTI (urinary tract infection) <FLORENCIA Ledesma - Last Filed: 11/28/22 15:11> Patient Disposition: Home, Self-Care <FLORENCIA Ledesma - Last Filed: 11/28/22 15:11> Instructions: Constipation (ED), Urinary Tract Infection in Women (DC), High Fiber Diet (ED), Fleet Enema (ED) <FLORENCIA Ledesma - Last Filed: 11/28/22 15:11> Additional Instructions: 1. Resume all home medications as prescribed. 2. Please complete the entire course of antibiotics for your UTI. 3. I strongly recommend daily use of MiraLax, this is available [id number]. This is for your constipation. 4. Increase the amount of water intake. 5. Please follow-up with your primary care provider. Return to the ER for any worsening symptoms. <FLORENCIA Ledesma - Last Filed: 11/28/22 15:11> Prescriptions: New ciprofloxacin HCl 250 mg tablet 250 mg PO BID 3 Days Qty: 6 0RF No Action omeprazole 20 mg capsule,delayed release(DR/EC) 20 mg PO BID Qty: 60 6RF Citrucel 500 mg tablet 500 mg PO BID 30 Days Qty: 60 2RF theophylline 400 mg tablet extended release 24 hr 400 mg PO QAM Qty: 30 6RF Stiolto Respimat 2.5-2.5 mcg/actuation mist 2 puff PO DAILY Qty: 4 3RF ibuprofen 800 mg tablet 1 tab PO TID clonidine HCl 0.1 mg tablet 3 tab PO BEDTIME sertraline 100 mg tablet 2 tab PO QAM dextroamphetamine-amphetamine 20 mg tablet 20 mg PO DAILY@1400 dextroamphetamine-amphetamine [Adderall XR] 30 mg capsule,extended release 24hr 30 mg PO DAILY clonazepam [Klonopin] 2 mg tablet 2 mg PO TID ziprasidone HCl [Geodon] 80 mg capsule 80 mg PO BID Rx Instructions: give with food (meal/snack) zolpidem [Ambien] 10 mg tablet 10 mg PO BEDTIME PRN (Reason: Sleep) folic acid 1 mg tablet 1 mg PO DAILY rosuvastatin 5 mg tablet 5 mg PO DAILY ergocalciferol (vitamin D2) [Drisdol] 1,250 mcg (50,000 unit) capsule 1,250 mcg PO QWEEK buprenorphine-naloxone [Suboxone] 12-3 mg film 30 mg sublingual DAILY Latuda 80 mg tablet 80 mg PO QAM cefuroxime axetil 500 mg tablet 500 mg PO BID 10 Days Qty: 20 0RF albuterol sulfate 90 mcg/actuation HFA aerosol inhaler 2 puff PO Q4-6H PRN (Reason: shortness of breath or wheezing) Qty: 1 6RF ipratropium-albuterol 0.5 mg-3 mg(2.5 mg base)/3 mL solution for nebulization 3 ml inhalation Q6H PRN (Reason: for wheezing) 30 Days Qty: 360 6RF <FLORENCIA Ledesma - Last Filed: 11/28/22 15:11> Referrals: Ju Khan, [facility] [Primary Care Provider] - <FLORENCIA Ledesma - Last Filed: 11/28/22 15:11>
[2022-11-28 15:10] VITALS: BP 93/66; PULSE 97; RESP 17; TEMP 36.6; O2SAT 98; BMI 29.2
[2022-11-28 15:51] LABS: MANUAL DIFF FLAG NO
[2022-11-28 15:54] LABS: Basophils Absolute Auto 0.1 X10*3/uL (0.0-0.2); Basophils Percent Auto 0.9 % (0-2); Eosinophils Absolute Auto 0.2 X10*3/uL (0.0-0.4); Eosinophils Percent Auto 1.9 % (0-4); Hematocrit 40.6 % (37.0-47.0); Hemoglobin 13.5 g/dl (12.0-16.0); Imm Gran Abs Auto 0.02 X10*3/uL (0.00-0.03); Imm Gran Pct Auto 0.2 % (0.0-0.4); Lymphocytes Absolute Auto 3.1 X10*3/uL (1.2-4.9); Lymphocytes Percent Auto 28.9 % (20-40); Mean Corpuscular HGB Conc 33.3 g/dl (31.0-35.0); Mean Corpuscular Hemoglobin 28.4 pg (27.0-33.0); Mean Corpuscular Volume 85.3 fL (80.0-98.0); Mean Platelet Volume 10.3 fL (9.4-12.3); Monocytes Absolute Auto 0.6 X10*3/uL (0.1-1.2); Monocytes Percent Auto 5.7 % (2-11); Neutrophils Absolute Auto 6.7 x10*3/uL (2.0-8.3); Neutrophils Percent Auto 62.4 % (45-73); Platelet Count 254 X10*3/uL (160-400); Red Blood Count 4.76 X10*6/uL (4.20-5.50); White Blood Count 10.7 X10*3/uL (4.8-10.8)
[2022-11-28 16:15] LABS: Alanine Aminotransferase 22 U/L (0-31); Albumin Level 4.1 g/dL (3.5-5.0); Alkaline Phosphatase 95 U/L (39-117); Anion Gap 14 (12-20); Aspartate Amino Transferase 55 U/L (5-31); Bilirubin Total 0.4 mg/dL (0.0-1.0); Blood Urea Nitrogen 12 mg/dL (9-16); Calcium 10.2 mg/dL (8.4-10.2); Carbon Dioxide 27 mmol/L (22-29); Chloride 103 mmol/L (96-108); Estimated Glomerular Filt Rate 39; Glucose Random 93 mg/dL (60-115); Magnesium 2.1 mg/dL (1.6-2.6); Potassium 4.4 mmol/L (3.3-5.1); Sodium 140 mmol/L (135-145); Total Protein 7.3 g/dL (6.5-8.0)
[2022-11-28 16:26] LABS: HCG Quantitative < 2 mIU/mL
[2022-11-28 17:16] VITALS: BP 100/65; PULSE 72; RESP 18; TEMP 36.8; O2SAT 98
[2022-11-28] MEDS: Simethicone 80 MG TAB.CHEW 160 MG PO (17:27)
[2022-11-28] MEDS: Docusate Sodium 100 MG CAPSULE PO (17:28)
[2022-11-28 17:47] VITALS: BP 97/53; PULSE 67; RESP 16; TEMP 36.7; O2SAT 98
[2022-11-28 20:56] VITALS: BP 102/68; PULSE 64; RESP 16; TEMP 36.8; O2SAT 96
[2022-11-28 20:59] VITALS: PULSE 64; RESP 16; O2SAT 97
[2022-11-28 22:05] LABS: Appearance Urine Clear; Color Urine Yellow; Glucose Urine UA Negative (Negative); Leukocyte Esterase Urine Trace (Negative); Nitrite Urine Negative (Negative); UMIC TRIGGER UACC YES; Urine Blood Trace (Negative); Urine Ketones Negative (Negative); Urine Protein Negative (Neg-Trace)
[2022-11-28 22:07] LABS: Bacteria Urine None Seen (None Seen); Hyaline Casts Urine 0-2 /LPF (0-2); Squamous Epithelial Cell Urine 0-2 /HPF (0-2); WBC Urine 0-5 /HPF (0-5)
[2022-11-28 22:20] LABS: Amphetamine Screen Urine POSITIVE (Not Detect); Barbiturates, Urine Not Detected (Not Detect); Benzodiazepines Screen Urine POSITIVE (Not Detect); Cannabinoid Screen Urine Not Detected (Not Detect); Cocaine Screen Urine Not Detected (Not Detect); Fentanyl, urine Not Detected (Not Detect); Opiate Screen Urine Not Detected (Not Detect); Phencyclidine Screen Urine Not Detected (Not Detect)
--- NOTE | 2022-11-28 22:45 | PC.NURSE ---
Went in to update pt and advise that levaquin dose needs to be retrieved in another pyxis in another department. Pt yelling and using expletives stating she does not want the levaquin. Security called to bedside and pt escorted out.
== END 2022-11-28 23:35 | disposition home or self-care (01) ==
PROVIDERS: Physician Assistant; Emergency Provider Student in an Organized Health Care Education/Training Program; PCP Nurse Practitioner Primary Care
DX: R10.9 Unspecified abdominal pain (principal); K59.00 Constipation, unspecified; N39.0 Urinary tract infection, site not specified; R06.02 Shortness of breath; F11.20 Opioid dependence, uncomplicated; F17.210 Nicotine dependence, cigarettes, uncomplicated; Z79.899 Other long term (current) drug therapy; Z79.02 Long term (current) use of antithrombotics/antiplatelets
CPT/HCPCS: 36415; 71046; 74176; 80053; 80307; 81001; 83735; 84702; 85025; 94640; 99284; 99285

== ENCOUNTER → 2023-02-19 13:13 | Outpatient (BNVA) | payer MEDICAID, SELFPAY | PROVIDERS: PCP Nurse Practitioner Primary Care; Visit Provider Physician Assistant ==

== ENCOUNTER 2023-02-19 14:04 | Emergency (ER) | payer MEDICAID, SELFPAY ==
--- NOTE | ~2023-02-19 | CT_ITS ---
EXAMINATION: CT ABDOMEN AND PELVIS WITH CONTRAST CLINICAL INFORMATION: Abdominal pain COMPARISON: CT abdomen pelvis 11/28/2022. TECHNIQUE: Multidetector volumetric images were obtained from the superior aspect of the liver through the pubic symphysis following administration 85 mL of Omnipaque 350 intravenous contrast. Sagittal and coronal reformatted images were obtained on the technologist's workstation. Oral contrast: No This CT examination was performed using dose optimization techniques as appropriate, variously including the following: *Automated exposure control *Adjustment of mA and/or kV according to patient size (this includes techniques or standardized protocols for targeted exams where dose is matched to indication/reason for exam; i.e. extremities or head) *Use of iterative reconstruction technique DLP: 534 mGy-cm FINDINGS: LUNG BASES: The visualized lung bases are unremarkable. LIVER, GALLBLADDER, AND BILIARY TREE: The liver is normal in size, shape, and attenuation. No focal hepatic lesion or biliary ductal dilatation is present. The gallbladder is unremarkable with no evidence of radiopaque gallstones, gallbladder wall thickening, or obvious pericholecystic inflammatory changes. PANCREAS: There is a round enhancing lesion in the tail of pancreas measuring 84 Hounsfield units. It measures 1 cm. There is approximately same Hounsfield units as the head of the pancreas and likely normal tissue. SPLEEN: The spleen is unremarkable. A small accessory splenule at the hilum. ADRENAL GLANDS: Unremarkable. KIDNEYS AND URETERS: The kidneys are normal in size, shape, and attenuation. No hydronephrosis, hydroureter, or calculi seen. No perinephric stranding. There are multiple bilateral hypodense liver lesions measuring fluid density likely cyst.. There are small cortical defects likely scarring lower pole left kidney. BLADDER: Unremarkable. GASTROINTESTINAL TRACT: There is large amount of stool seen in the colon without any significant distention. The small bowel loops are normal caliber. Appendix is normal caliber. No free air or free fluid seen. ABDOMINAL WALL: No significant hernia is appreciated. LYMPH NODES: Normal. VASCULAR: Mild atherosclerotic changes of abdominal aorta without aneurysmal dilatation. PELVIC VISCERA: The uterus is anteverted and appears unremarkable. No adnexal mass or free fluid. No abnormal pelvic lymph nodes seen. OSSEOUS STRUCTURES: There are degenerative disc changes L5-S1 disc level. No aggressive lytic or sclerotic process seen. CT/CT abdomen pelvis w IV con IMPRESSION: 1. No acute intra-abdominal process seen. 2. Moderate to significant constipation. No obstruction. Normal appendix. Constipation has been chronic. Recommend medical treatment. 3. Bilateral renal cysts and cortical defect lower pole left kidney. 4. There is a prominent round lesion tail of pancreas likely normal hepatic tissue. It is unchanged to last exam 11/28/2022 Fleischner guidelines were followed.
[2023-02-19 14:07] VITALS: BP 137/89; PULSE 74; TEMP 35.9; O2SAT 98; BMI 30.9
--- NOTE | 2023-02-19 14:10 | ED_ITS ---
HPI - Abdominal Pain General Chief Complaint: Abdominal Pain Stated Complaint: Abd pain Time Seen by Provider: 02/19/23 16:03 Source: patient Mode of arrival: ambulatory Limitations: no limitations History of Present Illness HPI narrative: Patient is a 58 year old assigned female at with a history of COPD and G ERD presenting to the emergency department today with chronic abdominal pain. Patient states that she has had abdominal pain for over a year and a half and her PCP wants her to get it checked out. Patient denies any dizziness, lightheadedness, vomiting, fever, chills, blurry vision, double vision, loss of vision, chest pain, difficulty breathing, shortness of breath, back pain, night sweats, pain with urination, increased urinary frequency, increased urinary urgency, blood in her urine or stool, syncope or a near syncopal episode, recent trauma or falls, bowel incontinence, bladder incontinence, bowel retention, bladder retention, or any other complaints at this time. MD elicited complaint: abdominal pain Onset (ago): year(s) Pain Consistency: constant Location: diffuse Severity: mild Pain scale (0-10): 3 Quality: aching and fullness Radiation: none Migration to: no migration Exacerbating factors: nothing Relieving factors: nothing Associated symptoms: nausea Related Data Home Medications Medication Instructions Recorded Confirmed clonazepam 2 mg tablet (Klonopin) 2 mg PO TID 01/31/21 02/19/23 ergocalciferol (vitamin D2) 1,250 1,250 mcg PO QWEEK 01/31/21 02/19/23 mcg (50,000 unit) capsule (Drisdol) folic acid 1 mg tablet 1 mg PO DAILY 01/31/21 02/19/23 rosuvastatin 5 mg tablet 5 mg PO DAILY 01/31/21 02/19/23 ziprasidone HCl 80 mg capsule 80 mg PO BID 01/31/21 02/19/23 (Geodon) zolpidem 10 mg tablet (Ambien) 10 mg PO BEDTIME PRN Sleep 01/31/21 02/19/23 clonidine HCl 0.1 mg tablet 3 tab PO BEDTIME insomnia 07/07/21 02/19/23 dextroamphetamine-amphetamine 20 20 mg PO DAILY@1400 07/07/21 02/19/23 mg tablet dextroamphetamine-amphetamine ER 30 mg PO DAILY 07/07/21 02/19/23 30 mg 24hr capsule,extend release (Adderall XR) sertraline 100 mg tablet 2 tab PO QAM 07/07/21 02/19/23 buprenorphine 12 mg-naloxone 3 mg 30 mg sublingual DAILY 12/28/21 02/19/23 sublingual film (Suboxone) Previous Rx's Medication Instructions Recorded omeprazole 20 mg capsule,delayed 20 mg PO BID #60 caps 08/16/21 release methylcellulose (laxative) 500 mg 500 mg PO BID 30 days #60 tabs 11/23/21 tablet (Citrucel) albuterol sulfate 90 mcg/actuation 2 puff PO Q4-6H PRN shortness of 08/01/22 aerosol inhaler breath or wheezing #1 ea ipratropium 0.5 mg-albuterol 3 mg 3 ml inhalation Q6H PRN for 09/20/22 (2.5 mg base)/3 mL nebulization wheezing 30 days #360 mL soln theophylline 400 mg 400 mg PO QAM #30 tabs 10/26/22 tablet,extended release 24 hr tiotropium 2.5 mcg-olodaterol 2.5 2 puff PO DAILY #4 grams 10/26/22 mcg/actuation mist for inhalation (Stiolto Respimat) ondansetron 4 mg disintegrating 4 mg PO Q8H 3 days #9 tabs 02/19/23 tablet Allergies Allergy/AdvReac Type Severity Reaction Status Date / Time sulfamethoxazole Allergy Mild inflamed Verified 02/19/23 14:15 [From Bactrim] hives, rash, trimethoprim [From Bactrim] Allergy Mild inflamed Verified 02/19/23 14:15 hives, rash, amoxicillin [AMOXICILLIN] Allergy Unknown HIVES Verified 02/19/23 14:15 aspirin Allergy Unknown unknown Verified 02/19/23 14:15 codeine Allergy Unknown unknown Verified 02/19/23 14:15 morphine Allergy Unknown unknown Verified 02/19/23 14:15 Penicillins [PENICILLINS] Allergy Unknown HIVES Verified 02/19/23 14:15 Sulfa (Sulfonamide Allergy Unknown Unknown Verified 02/19/23 14:15 Antibiotics) Review of Systems Constitutional: Reports no additional constitutional complaints, Denies chills, Denies fever(s) and Denies night sweats Eyes: Reports no additional eye complaints, Denies blurry vision, Denies change in vision, Denies diplopia, Denies eye discharge, Denies loss of vision and Denies eye pain Denies dizziness Cardiovascular: Reports no additional cardiovascular complaints, Denies chest pain, Denies lightheadedness, Denies Loss of Consciousness and Denies dyspnea Respiratory: Reports no additional respiratory complaints and Denies dyspnea Gastrointestinal: Reports no additional gastrointestinal complaints, Reports abdominal pain, Denies melena, Denies hematochezia, Denies change in bowel habit s, Denies change in stool character and Reports nausea Genitourinary: Denies hematuria, Denies urinary frequency, Denies dysuria, Denies urinary incontinence, Denies urinary hesitancy and Denies urinary urgency Musculoskeletal: Reports no additional musculoskeletal complaints, Denies numbness and Denies tingling Denies dizziness, Denies loss of vision, Denies numbness and Denies tingling Psychiatric: Reports no additional psychiatric complaints Endocrine: Reports no additional endocrine complaints Hematologic/Lymphatic: Reports no additional hematologic/lymphatic complaints Allergic/Immunologic: Reports no additional allergic/immunologic complaints [facility] Past Medical History Attestation statement: The following information was validated with the patient. Source: old records reviewed and nursing notes reviewed Medical History Acid reflux Adenomatous colon polyp Bipolar disorder Chronic constipation Chronic pain syndrome COVID-19 vaccine series completed Deviated septum Disc degeneration, lumbar Emphysema lung Spondylosis 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 Surgical History History of esophagogastroduodenoscopy (EGD) Hx of colonoscopy Family History Family History Father No problems noted. Mother No problems noted. Social History Social History Household Members: Children Alcohol intake: never Patient Tobacco Use Status: Current everyday Tobacco user Tobacco use type: Cigarette Advance Directives: No Advance Directives Information Provided: No Current occupational status: unemployed Physical Exam ED Vital Signs: Vital Signs - 24 hr 02/19/23 14:07 Temperature 96.7 F L Pulse Rate 74 Blood Pressure 137/89 Pulse Oximetry 98 Oxygen Delivery Method Room Air BMI result Body Mass Index 30.9 Const General: cooperative, no acute distress, alert and awake Nutritional Appearance: well nourished Orientation/consciousness: patient oriented x3 Limitations: no limitations HENMT Head: Yes normal to inspection and Yes atraumatic Ears: hearing grossly normal bilaterally and external ears normal General nose exam: Normal external nose present, no nasal discharge noted and no epistaxis Face and sinus: Yes normal facial exam, No abrasion and No laceration Mouth: Normal oral and palatal mucosa present, no drooling and no muffled voice Eyes General: appearance normal, both eyes and all related structures Periorbital: periorbital findings normal Eyelids: Yes eyelids normal Conjunctivae: conjunctivae normal Pupils: Equal, round and reactive pupils present EOM: EOMs intact bilaterally Neck Neck: Yes normal visual inspection, Yes full ROM and Yes no lymphadenopathy Chest Chest palpation & inspection: normal inspection of the chest Resp Effort & Inspection: normal respiratory effort and able to speak in complete sentences GI Inspection: Yes normal to inspection Palpation (GI): Soft to palpation, not firm, nontender and no guarding Neuro General: patient oriented x3 and moves all extremities Cranial nerves: Yes Equal, round and reactive pupils present Cognition (Neuro): normal cognition Motor exam (neuro): 5/5 motor strength present throughout Sensory Exam: Normal double simultaneous stimulation for sensation Coordination: [id number] test normal Extrem General: Yes normal to inspection, Yes full ROM and Yes capillary refill normal Psych Appearance: grossly normal Mental Status: mental status grossly normal Affect: normal affect Attitude: cooperative Thought process: Normal thought process present Thought content: Normal thought content present Insight: Good insight present (Psych) Course Course Course Narrative: RME - 58 yo female with history of bipolar, constipation, COPD, chronic pain syndrome, former alcoholic (sober since 2004) who presents to the ER from GI office for evaluation of acute on chronic abdominal pain. Pain has been present since last November 2021. She reports bad attacks of abdominal pain that are crippling. GI office sent her to ER due to significant tenderness on palpation. She is having normal bowel movements, she reports nausea x3 months but no vomiting. Pain is mostly in the RUQ and epigastric areas. Feels distended and bloated. Plan: lab workup, ?CT scan (had one in November showing constipation) Medical Decision Making Medical Decision Making MDM Narrative: Patient is a 58 year old assigned female at with a history of COPD and GERD presenting to the emergency department today with chronic abdominal pain. Patient's physical exam was unremarkable. Patient's blood work was unremarkable. Patient's abdomen/pelvis CT showed constipation. I explained my physical exam findings as well as all test results to the patient. I answered all questions asked by the patient. I stressed the importance of the patient taking her medication as prescribed. I stressed the importance of the patient following up with her primary care provider and a GI specialist. I stressed the importance of the patient returning to the emergency department immediately if her symptoms were to worsen or if she were to develop any dizziness, shortness of breath, difficulty breathing, chest pain, blurry vision, loss of vision, nausea, vomiting, abdominal pain, fever, chills, back pain, or any other complaints. Patient verbalized agreement and understanding with this treatment plan and discharge. Differential Diagnosis Differential Diagnoses: The differential diagnosis associated with the presentation includes abdominal pain constipation nausea gastroenteritis chronic abdominal pain GERD Admission/Observation Consideration of admission/observation: Escalation of care including admission/observation considered Patient would have been admitted to the hospital had her work up had any findings where hospital admission was appropriate and her clinical presentation warranted hospital admission Lab Data MDM Lab Attestation statement: I reviewed the patient's lab results. My interpretation of these studies and their corresponding values is that they are grossly normal. 02/19/23 14:29 02/19/23 14:29 Labs: Lab Results 02/19/23 02/19/23 02/19/23 Range/Units 14:25 14:25 14:29 WBC 11.0 H (4.8-10.8) X10*3/uL RBC 4.63 (4.20-5.50) X10*6/uL Hgb 13.2 (12.0-16.0) g/dl Hct 40.7 (37.0-47.0) % MCV 87.9 (80.0-98.0) fL MCH 28.5 (27.0-33.0) pg MCHC 32.4 (31.0-35.0) g/dl RDW 15.1 (11.0-16.0) % Plt Count 309 (160-400) X10*3/uL MPV 9.8 (9.4-12.3) fL Immature Gran % (Auto) 0.3 (0.0-0.4) % Neut % (Auto) 58.3 (45-73) % Lymph % (Auto) 29.3 (20-40) % Sac % (Auto) 6.4 (2-11) % Eos % (Auto) 4.5 H (0-4) % Baso % (Auto) 1.2 (0-2) % Lymph # (Auto) 3.2 (1.2-4.9) X10*3/uL Sac # (Auto) 0.7 (0.1-1.2) X10*3/uL Eos # (Auto) 0.5 H (0.0-0.4) X10*3/uL Baso # (Auto) 0.1 (0.0-0.2) X10*3/uL Abs Immat Gran (auto) 0.03 (0.00-0.03) X10*3/uL Absolute Neuts (auto) 6.4 (2.0-8.3) x10*3/uL Absolute Nucleated RBC 0.000 (0.0-0.012) X10*3/uL Nucleated RBC % (auto) 0.0 (0.0-0.2) /100WBC Sodium (135-145) mmol/L Potassium (3.3-5.1) mmol/L Chloride (96-108) mmol/L Carbon Dioxide (22-29) mmol/L Anion Gap (12-20) BUN (9-16) mg/dL Creatinine (0.5-1.4) mg/dL Estim Creat Clear Calc Estimated GFR Random Glucose (60-115) mg/dL Calcium (8.4-10.2) mg/dL Magnesium (1.6-2.6) mg/dL Total Bilirubin (0.0-1.0) mg/dL Direct Bilirubin (0.0-0.5) mg/dL AST (5-31) U/L ALT (0-31) U/L Alkaline Phosphatase (39-117) U/L Total Protein (6.5-8.0) g/dL Albumin (3.5-5.0) g/dL Lipase (8-78) U/L Urine Color Yellow Urine Appearance Clear Urine pH 6.0 (5.0-9.0) Ur Specific Brady 1.010 (1.005-1.025) Urine Protein Negative (Neg-Trace) mg/dL Urine Glucose (UA) Negative (Negative) mg/dL Urine Ketones Negative (Negative) mg/dL Urine Blood Negative (Negative) Urine Nitrite Negative (Negative) Ur Leukocyte Esterase Negative (Negative) Urine Opiates Screen Not Detected (Not Detect) Urine Fentanyl Screen Not Detected (Not Detect) Ur Barbiturates Screen Not Detected (Not Detect) Ur Phencyclidine Scrn Not Detected (Not Detect) Ur Amphetamines Screen POSITIVE H (Not Detect) U Benzodiazepines Scrn POSITIVE H (Not Detect) Urine Cocaine Screen Not Detected (Not Detect) U Marijuana (THC) Screen Not Detected (Not Detect) Ethyl Alcohol mg/dL 02/19/23 Range/Units 14:29 WBC (4.8-10.8) X10*3/uL RBC (4.20-5.50) X10*6/uL Hgb (12.0-16.0) g/dl Hct (37.0-47.0) % MCV (80.0-98.0) fL MCH (27.0-33.0) pg MCHC (31.0-35.0) g/dl RDW (11.0-16.0) % Plt Count (160-400) X10*3/uL MPV (9.4-12.3) fL Immature Gran % (Auto) (0.0-0.4) % Neut % (Auto) (45-73) % Lymph % (Auto) (20-40) % Sac % (Auto) (2-11) % Eos % (Auto) (0-4) % Baso % (Auto) (0-2) % Lymph # (Auto) (1.2-4.9) X10*3/uL Sac # (Auto) (0.1-1.2) X10*3/uL Eos # (Auto) (0.0-0.4) X10*3/uL Baso # (Auto) (0.0-0.2) X10*3/uL Abs Immat Gran (auto) (0.00-0.03) X10*3/uL Absolute Neuts (auto) (2.0-8.3) x10*3/uL Absolute Nucleated RBC (0.0-0.012) X10*3/uL Nucleated RBC % (auto) (0.0-0.2) /100WBC Sodium 141 (135-145) mmol/L Potassium 4.9 (3.3-5.1) mmol/L Chloride 102 (96-108) mmol/L Carbon Dioxide 29 (22-29) mmol/L Anion Gap 15 (12-20) BUN 10 (9-16) mg/dL Creatinine 1.13 (0.5-1.4) mg/dL Estim Creat Clear Calc 59.6 Estimated GFR 50 Random Glucose 90 (60-115) mg/dL Calcium 10.9 H D (8.4-10.2) mg/dL Magnesium 2.2 (1.6-2.6) mg/dL Total Bilirubin 0.3 (0.0-1.0) mg/dL Direct Bilirubin 0.1 (0.0-0.5) mg/dL AST 23 (5-31) U/L ALT 11 (0-31) U/L Alkaline Phosphatase 116 (39-117) U/L Total Protein 8.3 H (6.5-8.0) g/dL Albumin 4.1 (3.5-5.0) g/dL Lipase 12 (8-78) U/L Urine Color Urine Appearance Urine pH (5.0-9.0) Ur Specific Brady (1.005-1.025) Urine Protein (Neg-Trace) mg/dL Urine Glucose (UA) (Negative) mg/dL Urine Ketones (Negative) mg/dL Urine Blood (Negative) Urine Nitrite (Negative) Ur Leukocyte Esterase (Negative) Urine Opiates Screen (Not Detect) Urine Fentanyl Screen (Not Detect) Ur Barbiturates Screen (Not Detect) Ur Phencyclidine Scrn (Not Detect) Ur Amphetamines Screen (Not Detect) U Benzodiazepines Scrn (Not Detect) Urine Cocaine Screen (Not Detect) U Marijuana (THC) Screen (Not Detect) Ethyl Alcohol < 10 mg/dL Independent Interpretation I performed an independent interpretation of an: CT Scan Interpretation: My interpretation is in agreement with the radiologist's impression of this imaging study. EXAMINATION: CT ABDOMEN AND PELVIS WITH CONTRAST? CLINICAL INFORMATION: Abdominal pain? COMPARISON: CT abdomen pelvis 11/28/2022. TECHNIQUE: Multidetector volumetric images were obtained from the superior aspect of the liver through the pubic symphysis following administration 85 mL of Omnipaque 350 intravenous contrast. Sagittal and coronal reformatted images were obtained on the technologist's workstation.? Oral contrast: No This CT examination was performed using dose optimization techniques as appropriate, variously including the following: *Automated exposure control *Adjustment of mA and/or kV according to patient size (this includes techniques or standardized protocols for targeted exams where dose is matched to indication/reason for exam; i.e. extremities or head) *Use of iterative reconstruction technique DLP: 534 mGy-cm FINDINGS: LUNG BASES: The visualized lung bases are unremarkable.? LIVER, GALLBLADDER, AND BILIARY TREE: The liver is normal in size, shape, and attenuation. No focal hepatic lesion or biliary ductal dilatation is present. The gallbladder is unremarkable with no evidence of radiopaque gallstones, gallbladder wall thickening, or obvious pericholecystic inflammatory changes.? PANCREAS: There is a round enhancing lesion in the tail of pancreas measuring 84 Hounsfield units. It measures 1 cm. There is approximately same Hounsfield units as the head of the pancreas and likely normal tissue.? SPLEEN: The spleen is unremarkable. A small accessory splenule at the hilum.? ADRENAL GLANDS: Unremarkable.? KIDNEYS AND URETERS: The kidneys are normal in size, shape, and attenuation. No hydronephrosis, hydroureter, or calculi seen. No perinephric stranding. There are multiple bilateral hypodense liver lesions measuring fluid density likely cyst.. There are small cortical defects likely scarring lower pole left kidney. BLADDER: Unremarkable.? GASTROINTESTINAL TRACT: There is large amount of stool seen in the colon without any significant distention. The small bowel loops are normal caliber. Appendix is normal caliber. No free air or free fluid seen.? ABDOMINAL WALL: No significant hernia is appreciated.? LYMPH NODES: Normal. VASCULAR: Mild atherosclerotic changes of abdominal aorta without aneurysmal dilatation. PELVIC VISCERA: The uterus is anteverted and appears unremarkable. No adnexal mass or free fluid. No abnormal pelvic lymph nodes seen.? OSSEOUS STRUCTURES: There are degenerative disc changes L5-S1 disc level. No aggressive lytic or sclerotic process seen.? CT/CT abdomen pelvis w IV con IMPRESSION: 1.? No acute intra-abdominal process seen. 2.? Moderate to significant constipation. No obstruction. Normal appendix. Constipation has been chronic. Recommend medical treatment. 3.? Bilateral renal cysts and cortical defect lower pole left kidney. ? 4. There is a prominent round lesion tail of pancreas likely normal hepatic tissue. It is unchanged to last exam 11/28/2022 ? Fleischner guidelines were followed. Dictated By: Antony Mccormick MD Signed By: Electronically signed by Antony Mccormick MD 02/19/23 3307 Medications Administered Discontinued Medications Generic Name Dose Route Start Last Admin Trade Name Freq PRN Reason Stop Dose Admin Al Hydroxide/Mg Hydroxide 15 ml 02/19/23 16:21 02/19/23 18:20 Magnesium Hydrox/Alum Hydrox 30 Ml Oral.Susp PO 02/19/23 16:22 15 ml ONCE ONE Administration Iohexol 100 ml 02/19/23 17:13 02/19/23 17:14 Iohexol 350 Mg/Ml 100 Ml Infus..Btl IV 02/19/23 17:14 85 ml ONCE ONE Administration Lidocaine HCl 15 ml 02/19/23 16:21 02/19/23 18:23 Lidocaine Hcl Viscous 2 % 15 Ml Solution MUCOUS MEM 02/19/23 16:22 Not Given ONCE ONE Pantoprazole Sodium 40 mg 02/19/23 16:21 02/19/23 18:21 Pantoprazole Sodium 40 Mg/10 Ml Vial IVPUSH 02/19/23 16:22 40 mg ONCE ONE Administration Discharge Plan Discharge Clinical Impression: Constipation Patient Disposition: Home, Self-Care Instructions: Constipation (DC) Additional Instructions: Follow up with your primary care provider and a GI specialist. Return to the emergency department immediately if your symptoms worsen or if you develop any dizziness, shortness of breath, difficulty breathing, chest pain, blurry vision, loss of vision, nausea, vomiting, abdominal pain, fever, chills, back pain, or any other complaints. Prescriptions: New ondansetron 4 mg tablet,disintegrating 4 mg PO Q8H 3 Days Qty: 9 0RF No Action omeprazole 20 mg capsule,delayed release(DR/EC) 20 mg PO BID Qty: 60 6RF Citrucel 500 mg tablet 500 mg PO BID 30 Days Qty: 60 2RF theophylline 400 mg tablet extended release 24 hr 400 mg PO QAM Qty: 30 6RF Stiolto Respimat 2.5-2.5 mcg/actuation mist 2 puff PO DAILY Qty: 4 3RF clonidine HCl 0.1 mg tablet 3 tab PO BEDTIME sertraline 100 mg tablet 2 tab PO QAM dextroamphetamine-amphetamine 20 mg tablet 20 mg PO DAILY@1400 dextroamphetamine-amphetamine [Adderall XR] 30 mg capsule,extended release 24hr 30 mg PO DAILY clonazepam [Klonopin] 2 mg tablet 2 mg PO TID ziprasidone HCl [Geodon] 80 mg capsule 80 mg PO BID Rx Instructions: give with food (meal/snack) zolpidem [Ambien] 10 mg tablet 10 mg PO BEDTIME PRN (Reason: Sleep) folic acid 1 mg tablet 1 mg PO DAILY rosuvastatin 5 mg tablet 5 mg PO DAILY ergocalciferol (vitamin D2) [Drisdol] 1,250 mcg (50,000 unit) capsule 1,250 mcg PO QWEEK buprenorphine-naloxone [Suboxone] 12-3 mg film 30 mg sublingual DAILY albuterol sulfate 90 mcg/actuation HFA aerosol inhaler 2 puff PO Q4-6H PRN (Reason: shortness of breath or wheezing) Qty: 1 6RF ipratropium-albuterol 0.5 mg-3 mg(2.5 mg base)/3 mL solution for nebulization 3 ml inhalation Q6H PRN (Reason: for wheezing) 30 Days Qty: 360 6RF Referrals: [facility] [place] [facility] [Provider Group] (Call to establish and follow up with a GI specialist. ) Ju Khan NP [Primary Care Provider] - Print Language: Malagasy
[2023-02-19 14:34] LABS: MANUAL DIFF FLAG NO
[2023-02-19 14:36] LABS: Basophils Absolute Auto 0.1 X10*3/uL (0.0-0.2); Basophils Percent Auto 1.2 % (0-2); Eosinophils Absolute Auto 0.5 X10*3/uL (0.0-0.4); Eosinophils Percent Auto 4.5 % (0-4); Hematocrit 40.7 % (37.0-47.0); Hemoglobin 13.2 g/dl (12.0-16.0); Imm Gran Abs Auto 0.03 X10*3/uL (0.00-0.03); Imm Gran Pct Auto 0.3 % (0.0-0.4); Lymphocytes Absolute Auto 3.2 X10*3/uL (1.2-4.9); Lymphocytes Percent Auto 29.3 % (20-40); Mean Corpuscular HGB Conc 32.4 g/dl (31.0-35.0); Mean Corpuscular Hemoglobin 28.5 pg (27.0-33.0); Mean Corpuscular Volume 87.9 fL (80.0-98.0); Mean Platelet Volume 9.8 fL (9.4-12.3); Monocytes Absolute Auto 0.7 X10*3/uL (0.1-1.2); Monocytes Percent Auto 6.4 % (2-11); Neutrophils Absolute Auto 6.4 x10*3/uL (2.0-8.3); Neutrophils Percent Auto 58.3 % (45-73); Platelet Count 309 X10*3/uL (160-400); Red Blood Count 4.63 X10*6/uL (4.20-5.50); Red Cell Distribution Width 15.1 % (11.0-16.0)
[2023-02-19 14:36] LABS: Appearance Urine Clear; Color Urine Yellow; Glucose Urine UA Negative (Negative); Leukocyte Esterase Urine Negative (Negative); Nitrite Urine Negative (Negative); Urine Blood Negative (Negative); Urine Ketones Negative (Negative); Urine Protein Negative (Neg-Trace)
[2023-02-19 14:45] LABS: Amphetamine Screen Urine POSITIVE (Not Detect); Barbiturates, Urine Not Detected (Not Detect); Benzodiazepines Screen Urine POSITIVE (Not Detect); Cannabinoid Screen Urine Not Detected (Not Detect); Cocaine Screen Urine Not Detected (Not Detect); Fentanyl, urine Not Detected (Not Detect); Opiate Screen Urine Not Detected (Not Detect); Phencyclidine Screen Urine Not Detected (Not Detect)
[2023-02-19 14:57] LABS: Alanine Aminotransferase 11 U/L (0-31); Albumin Level 4.1 g/dL (3.5-5.0); Alkaline Phosphatase 116 U/L (39-117); Anion Gap 15 (12-20); Aspartate Amino Transferase 23 U/L (5-31); Bilirubin Direct 0.1 mg/dL (0.0-0.5); Bilirubin Total 0.3 mg/dL (0.0-1.0); Blood Urea Nitrogen 10 mg/dL (9-16); Calcium 10.9 mg/dL (8.4-10.2); Carbon Dioxide 29 mmol/L (22-29); Chloride 102 mmol/L (96-108); Creatinine Clr Calc Pharmacy 59.6; Estimated Glomerular Filt Rate 50; Ethanol < 10 mg/dL; Glucose Random 90 mg/dL (60-115); Lipase 12 U/L (8-78); Magnesium 2.2 mg/dL (1.6-2.6); Potassium 4.9 mmol/L (3.3-5.1); Sodium 141 mmol/L (135-145); Total Protein 8.3 g/dL (6.5-8.0)
[2023-02-19] MEDS: iohexoL 350 MG/ML 100 ML INFUS..BTL IV (17:14)
[2023-02-19] MEDS: Magnesium Hydrox/Alum Hydrox 30 ML ORAL.SUSP 15 ML PO (18:20)
[2023-02-19] MEDS: Pantoprazole Sodium 40 MG/10 ML VIAL IVPUSH (18:21)
[2023-02-19] MEDS: ondansetron HCL 4 MG/2 ML VIAL IVPUSH (18:29)
== END 2023-02-19 18:51 | disposition home or self-care (01) ==
PROVIDERS: Physician Assistant; Emergency Provider Emergency Medicine; PCP Nurse Practitioner Primary Care
DX: K59.00 Constipation, unspecified (principal); F17.210 Nicotine dependence, cigarettes, uncomplicated; K21.9 Gastro-esophageal reflux disease without esophagitis; Z79.899 Other long term (current) drug therapy
CPT/HCPCS: 36415; 74177; 80048; 80076; 80307; 81003; 83690; 83735; 85025; 96374; 96375; 99202; 99283; 99284; J2405; Q9967

== ENCOUNTER → 2023-02-28 14:56 | Outpatient (BNVA) | payer MEDICAID, SELFPAY | PROVIDERS: PCP Nurse Practitioner Primary Care; Visit Provider Physician Assistant | DX: R10.11 Right upper quadrant pain (principal); K59.09 Other constipation; D36.9 Benign neoplasm, unspecified site | CPT/HCPCS: 99212 ==

== ENCOUNTER 2023-03-14 10:45 | Outpatient (AMB) | payer MEDICAID, SELFPAY ==
--- NOTE | 2023-03-14 10:55 | MHC.OFFVIS ---
Intake Vital Signs 03/14/23 10:58 Height 5 ft 5 in Weight 186 lb BMI 30.9 BP 88/49 L Blood Pressure Location Lt brachial Position Sitting Pulse 71 Intake Visit Reasons: 2 weeks follow up Intake Note: Patient follow up for chronic constipation. Patient cc: Nauseas, abdominal pain radiating to her sides, acid reflex with burning sensation. 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 Required: No Accompanied by: Self / Same As Patient Allergies sulfamethoxazole [From Bactrim] Allergy (Mild, Verified 03/14/23 10:54) inflamed hives, rash, trimethoprim [From Bactrim] Allergy (Mild, Verified 03/14/23 10:54) inflamed hives, rash, amoxicillin [AMOXICILLIN] Allergy (Unknown, Verified 03/14/23 10:54) HIVES aspirin Allergy (Unknown, Verified 03/14/23 10:54) unknown codeine Allergy (Unknown, Verified 03/14/23 10:54) unknown morphine Allergy (Unknown, Verified 03/14/23 10:54) unknown Penicillins [PENICILLINS] Allergy (Unknown, Verified 03/14/23 10:54) HIVES Sulfa (Sulfonamide Antibiotics) Allergy (Unknown, Verified 03/14/23 10:54) Unknown Medication List - Last Reconciled 03/14/23 by Lorene Trotter PA-C albuterol sulfate 90 mcg/actuation 2 puffs PO Q4-6H PRN bisacodyl (Dulcolax (bisacodyl)) 10 mg PA DAILY PRN buprenorphine-naloxone 12-3 mg (Suboxone) 30 mg sublingual DAILY clonazepam (Klonopin) 2 mg PO TID clonidine HCl 3 tabs PO BEDTIME dextroamphetamine-amphetamine 20 mg 20 mg PO DAILY@1400 dextroamphetamine-amphetamine 30 mg ER (Adderall XR) 30 mg PO DAILY docusate sodium 100 mg PO docusate sodium (Colace) 200 mg (2 x 100 mg) PO BEDTIME 30 days ergocalciferol (vitamin D2) (Drisdol) 1,250 mcg PO QWEEK folic acid 1 mg PO DAILY ipratropium-albuterol 0.5 mg-3 mg(2.5 mg base)/3 mL 3 mL inhalation Q6H PRN 30 days methylcellulose (laxative) (Citrucel) 500 mg PO BID 30 days metoprolol tartrate 12.5 mg PO omeprazole 40 mg PO ondansetron 4 mg PO Q8H 3 days polyethylene glycol 3350 17 grams PO BID polyethylene glycol 3350 (Miralax) 17 grams PO DAILY PRN 30 days rosuvastatin 10 mg PO QAM sennosides (senna) 17.2 mg PO BEDTIME sertraline 2 tabs PO QAM theophylline ER 400 mg PO QAM tiotropium-olodaterol 2.5-2.5 mcg/actuation (Stiolto Respimat) 2 puffs PO DAILY verapamil ER 120 mg PO QPM ziprasidone HCl (Geodon) 80 mg PO BID zolpidem (Ambien) 10 mg PO BEDTIME PRN HPI HPI Comments History of Present Illness Details A 58 y/o female follow up with chronic severe constipation- took PEG-completely cleaned out. She reports feeling much less bloated abdomen this is been soft however she continues to have intermittent diffuse abdominal pain seems to radiate to her shoulder blade-reviewed CT She is was taking miralax bid- was too much- now taking 1 x daily- as well colace Her appetite is very good. Intermittent reflux-associates to diet No nausea, vomiting fever chills She is overdue for colonoscopy due to history of adenomatous colon polyps PFSH Medical History Acid reflux Adenomatous colon polyp Bipolar disorder Chronic constipation Chronic pain syndrome COVID-19 vaccine series completed Deviated septum Disc degeneration, lumbar Emphysema lung Spondylosis 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 Surgical History History of esophagogastroduodenoscopy (EGD) Hx of colonoscopy Family History Father No problems noted. Mother No problems noted. Social History Household Members: Children Alcohol intake: never Patient Tobacco Use Status: Current everyday Tobacco user Tobacco use type: Cigarette Current occupational status: unemployed Review of Systems Const All systems reviewed & are unremarkable except as noted in HPI and below Card Denies chest pain and Denies dyspnea Resp Denies dyspnea GI Reports abdominal pain, Denies hematochezia, Reports constipation (Much improved), Reports heartburn, Denies nausea and Denies vomiting Physical Exam Vital Signs: Last Vital Signs Pulse 71 03/14/23 10:58 BP 88/49 L 03/14/23 10:58 BMI result Body Mass Index 30.9 Const General: comfortable and no acute distress Orientation/consciousness: patient oriented x3 Limitations: no limitations Eyes Sclerae: sclerae normal Resp Effort & Inspection: normal respiratory effort and able to speak in complete sentences Auscultation: rhonchi Cardio Rate: regular rate Rhythm: regular rhythm GI Inspection: Yes distended and Yes obesity Palpation (GI): Soft to palpation and Tenderness to palpation present (GI) (RUQ- mild) Auscultation: normal bowel sounds Neuro General: patient oriented x3 Psych Speech and movement: Clear speech present Affect: normal affect Attitude: cooperative Thought process: Normal thought process present Thought content: Normal thought content present Results Reviewed Results Reviewed: Plan: Await pathology results Continue present medications (Omeprazole at 40 mg PO once daily) Patient has an appointment on 04/30/2018 in the [facility] with Andrew Bruno M.D.-. Repeat Colonoscopy interval based on path results. Above findings were discussed with Cherri and she was advised to keep her GI clinic appointment to discuss biopsy results. Constipation has resolved with Miralax three times a day VTE prophylaxis - OR No VTE prophylaxis Condition Post-Op: Stable Complications: None Grafts or Implants: None Drains None Estimated blood loss: Minimal Fluids: see anesthesia notes Specimen: A. Gastric body - rule out gastritis B. Gastric polyps C. Proximal esophagus - rule out EOE. D. TC polyps E. SC polyps. Other findings: None Patient returned to: Discharge area Daily Antibiotic Pl CT/CT abdomen pelvis w IV con IMPRESSION: 1.? No acute intra-abdominal process seen. 2.? Moderate to significant constipation. No obstruction. Normal appendix. Constipation has been chronic. Recommend medical treatment. 3.? Bilateral renal cysts and cortical defect lower pole left kidney. ? 4. There is a prominent round lesion tail of pancreas likely normal hepatic tissue. It is unchanged to last exam 11/28/2022 ? Assessment & Plan Assessment & Plan (1) Abdominal pain: Comment: Mild tenderness at the RUQ No reminder guarding Code(s): R10.9 - Unspecified abdominal pain Plan: Abdominal ultrasound (2) Tubular adenoma: Comment: Overdue for polyp surveillance Code(s): D36.9 - Benign neoplasm, unspecified site Plan: Will see back in follow-up if consistent with bowel regimen schedule her for colonoscopy, however want to be sure that she is able to have a good prep (3) Chronic constipation: Comment: Much better spirits Medication induced, reinforce Consistent bowel regimen-maintain high-fiber diet Code(s): K59.09 - Other constipation Plan Abdominal U/S- Orders: Orders US abdomen complete Today R10.9 - Unspecified abdominal pain Patient Instructions: Continue consistent bowel regimen Maintain high-fiber diet Will see back in follow-up for progress-if appropriate scheduled for polyp surveillance colonoscopy Reflux precautions continue PPI, avoid culprits Encouraged to call questions or concerns Appreciate the opportunity assist in the care the patient Coding Level of Care Code Est Pt Level 3 (16701) Diagnoses Abdominal pain R10.9 Tubular adenoma D36.9 Chronic constipation K59.09 Time Spent (min) 30
[2023-03-14 10:58] VITALS: BP 88/49; PULSE 71; BMI 30.9
== END 2023-03-14 13:59 | disposition home or self-care (01) ==
PROVIDERS: PCP Nurse Practitioner Primary Care; Visit Provider Physician Assistant
DX: R10.9 Unspecified abdominal pain (principal); D36.9 Benign neoplasm, unspecified site; K59.09 Other constipation
CPT/HCPCS: 99213

== ENCOUNTER → 2023-03-14 10:45 | Outpatient (BNVA) | payer MEDICAID, SELFPAY | PROVIDERS: PCP Nurse Practitioner Primary Care; Visit Provider Physician Assistant | DX: K59.09 Other constipation (principal); R10.9 Unspecified abdominal pain; D36.9 Benign neoplasm, unspecified site | CPT/HCPCS: 99213 ==

== ENCOUNTER 2023-03-30 16:10 | Outpatient (REF) | payer MEDICAID, SELFPAY ==
[2023-03-30 18:00] LABS: Anion Gap 15 (12-20); Blood Urea Nitrogen 12 mg/dL (9-16); Calcium 10.7 mg/dL (8.4-10.2); Carbon Dioxide 24 mmol/L (22-29); Chloride 106 mmol/L (96-108); Estimated Glomerular Filt Rate 52; Glucose Random 82 mg/dL (60-115); Sodium 140 mmol/L (135-145)
[2023-03-30 18:17] LABS: Thyroid Stimulating Hormone 1.56 uIU/mL (0.32-4.0)
== END 2023-03-30 16:11 | disposition home or self-care (01) ==
LOC: HO.HHCL 16:10
PROVIDERS: Visit Provider Nurse Practitioner Primary Care
DX: R79.89 Other specified abnormal findings of blood chemistry (principal)
CPT/HCPCS: 36415; 80048; 84443

== ENCOUNTER 2023-04-03 13:32 | Outpatient (REF) | payer MEDICAID, SELFPAY ==
--- NOTE | ~2023-04-03 | CT_ITS ---
EXAMINATION: CT CHEST WITHOUT CONTRAST CLINICAL INFORMATION: Follow up pulmonary nodules and emphysema. COMPARISON: CT chest 03/06/2022. TECHNIQUE: Multidetector volumetric CT imaging of the chest was done. Axial MIP volume rendering provided. Sagittal and coronal reformatted images were obtained. This CT examination was performed using dose optimization techniques as appropriate, variously including the following: *Automated exposure control Adjustment of mA and/or kV according to patient size (this includes techniques or standardized protocols for targeted exams where dose is matched to indication/reason for exam; i.e. extremities or head) Use of iterative reconstruction technique. DLP: 153 mGy-cm. FINDINGS: WATCH CASE POLISHER: Unremarkable. LUNGS: There is centrilobular and paraseptal emphysema. Small cystic changes are seen in both lung apices. There is a thin-walled cavity, superior segment right upper lobe, measuring 9 mm on axial image 209/6, similar to previous study. There is a 4 mm nodule in the left major fissure, axial image 212/6 and right major fissure, axial image 36/4, are stable. There is a 4 mm nodule left upper lobe adjacent to pericardium, image 240/6, stable. Previously described small micronodules scattered in both upper lobes, subpleural based small nodules in both lower lobes are stable. No new nodules, mass or consolidation seen. Punctate calcifications are seen as well in the left lower lobe. The thyroid lobes are symmetric and normal. The central trachea and bronchi are normal. No abnormal size mediastinal or hilar lymph nodes seen. The great vessels and the heart size is normal. There is no pericardial effusion. CORONARY ARTERY CALCIFICATION: None visualized on this study. PLEURA: There is no pleural effusion. No pleural mass or thickening. AXILLA: No lymphadenopathy. UPPER ABDOMEN: Visualized liver, spleen, pancreas and bilateral adrenal glands are unremarkable. OSSEOUS STRUCTURES: No aggressive lytic or sclerotic process seen. CT/CT chest wo IV con IMPRESSION: 1. Stable bilateral pulmonary nodules. No new nodules seen. 2. No abnormal mediastinal or axillary lymph nodes seen. 3. Centrilobular and paraseptal emphysema with cystic changes in both lung apices and a thin-walled cavity superior segment right lower lobe are stable. Fleischner guidelines were followed.
== END 2023-04-03 13:33 | disposition home or self-care (01) ==
LOC: HO.CT 13:32
PROVIDERS: Visit Provider Internal Medicine Pulmonary Disease
DX: R91.8 Other nonspecific abnormal finding of lung field (principal)
CPT/HCPCS: 71250

== ENCOUNTER 2023-04-04 13:17 | Outpatient (REF) | payer MEDICAID, SELFPAY ==
--- NOTE | ~2023-04-04 | MM_ITS ---
EXAMINATION: MM SCREENING DIGITAL BREAST TOMOSYNTHESIS, BILATERAL CLINICAL INFORMATION: Screening. Asymptomatic. The lifetime risk of breast cancer based on the Tyrer-Cuzick Model is 16.6%. COMPARISON: Mammography: This study is compared with prior exams dating back to 2018. TECHNIQUE: Digital breast tomosynthesis is performed in both the craniocaudal and mediolateral oblique views along with computer-aided detection (CAD). Synthesized 2D images are generated from the tomosynthesis. FINDINGS: The breasts are heterogeneously dense, which may obscure small masses (ACR BI-RADS breast composition Category c). There are no significant masses, abnormal calcifications, or other abnormalities. There is a tissue marker present in the right breast from prior benign percutaneous biopsy. MM/MM tomosynthesis screening BI IMPRESSION: No mammographic evidence of malignancy. ASSESSMENT: BI-RADS BI-RADS 2 - Benign Findings RECOMMENDATION: Routine annual mammography screening. 1 year F/U This examination should not preclude the clinical evaluation of a suspicious palpable abnormality. This patient's information was entered into a reminder system with a target due date for their next mammogram.
== END 2023-04-04 13:18 | disposition home or self-care (01) ==
LOC: HO.MAMMO 13:17
PROVIDERS: PCP Nurse Practitioner Primary Care; Visit Provider Nurse Practitioner Primary Care
DX: Z12.31 Encounter for screening mammogram for malignant neoplasm of breast (principal)
CPT/HCPCS: 77063; 77067

== ENCOUNTER → 2023-04-04 13:45 | Outpatient (BNV) | payer MEDICAID, SELFPAY | PROVIDERS: PCP Nurse Practitioner Primary Care; Visit Provider Radiology Diagnostic Radiology | DX: Z12.31 Encounter for screening mammogram for malignant neoplasm of breast (principal) | CPT/HCPCS: 77063; 77067 ==

== ENCOUNTER 2023-04-10 08:55 | Outpatient (REF) | payer MEDICAID, SELFPAY ==
--- NOTE | ~2023-04-10 | US_ITS ---
EXAMINATION: US ABDOMEN COMPLETE CLINICAL INFORMATION: Unspecified abdominal pain. COMPARISON: CT abdomen and pelvis 02/19/2023. X-ray KUB 02/19/2018 and 02/28/2017. Ultrasound abdomen complete 05/07/2017. TECHNIQUE: Real-time imaging of the abdominal viscera. FINDINGS: PANCREAS: Not well visualized due to bowel gas. ABDOMINAL AORTA: The proximal and distal abdominal aorta normal in caliber. The mid abdominal aorta is not well visualized due to bowel gas. The visualized IVC is normal. INFERIOR VENA CAVA: Visualized portions are normal. LIVER: Normal. The liver is normal in size. The liver contour is normal. Parenchymal echogenicity is normal. No focal hepatic lesion. There is no intrahepatic biliary duct dilatation seen. GALLBLADDER: Normal. The gallbladder is physiologically distended without evidence of stones, sludge, polyps, wall thickening or pericholecystic fluid. COMMON BILE DUCT: Normal in caliber measuring 0.44 cm in diameter. RIGHT KIDNEY: 2 cysts measuring 1 cm in the upper pole and 1.2 cm in the midpole. No imaging follow-up recommended. No hydronephrosis or renal calculi. The kidney measures 10.9 cm in maximum dimension. LEFT KIDNEY: There may be left renal cortical thinning and increased echogenicity. There are small left renal cysts, largest measuring 1.2 cm in the midpole. No imaging follow-up recommended No hydronephrosis or renal calculi. The kidney measures 9.8 cm in maximum dimension. SPLEEN: Normal. The spleen measures 10.2 cm in maximum dimension. FREE FLUID: None. US/US abdomen complete IMPRESSION: No acute findings. Pancreas and mid abdominal aorta is not well seen. Question mild left renal cortical thinning and increased echogenicity.
== END 2023-04-10 08:56 | disposition home or self-care (01) ==
LOC: HO.HMGCX 08:55
PROVIDERS: PCP Nurse Practitioner Primary Care; Visit Provider Physician Assistant
DX: R10.9 Unspecified abdominal pain (principal); J44.9 Chronic obstructive pulmonary disease, unspecified; R06.00 Dyspnea, unspecified
CPT/HCPCS: 76700; 99212

== ENCOUNTER 2023-04-10 14:42 | Outpatient (AMB) | payer MEDICAID, SELFPAY ==
--- NOTE | 2023-04-10 14:56 | A.OFFVIS_ITS ---
Intake Vital Signs 04/10/23 14:57 Height 5 ft 5 in Weight 180 lb 12.465 oz BMI 30.1 BP 122/60 Blood Pressure Location Lt brachial Position Sitting Pulse 85 Pulse Source Pulse Oximeter Pulse Oximetry (%) 98 Oxygen Delivery Method Room Air Intake Visit Reasons: copd Intake Note: Pt reports her oxygen levels are usually 89-91. She says she experiences shortness of breath on exertion, she feels tired all the time, costant cough, wheezing, and chest pain. Therapeutic Recreation Director Required: No Allergies sulfamethoxazole [From Bactrim] Allergy (Mild, Verified 04/10/23 15:04) inflamed hives, rash, trimethoprim [From Bactrim] Allergy (Mild, Verified 04/10/23 15:04) inflamed hives, rash, amoxicillin [AMOXICILLIN] Allergy (Unknown, Verified 04/10/23 15:04) HIVES aspirin Allergy (Unknown, Verified 04/10/23 15:04) unknown codeine Allergy (Unknown, Verified 04/10/23 15:04) unknown morphine Allergy (Unknown, Verified 04/10/23 15:04) unknown Penicillins [PENICILLINS] Allergy (Unknown, Verified 04/10/23 15:04) HIVES Sulfa (Sulfonamide Antibiotics) Allergy (Unknown, Verified 04/10/23 15:04) Unknown HPI copd HPI Details 58-year-old lady, active 40+ pack-year smoker, followed for COPD, pulmonary nodules and dyspnea on exertion.? She continues to use Stiolto, duo nebs, theophylline 400, and albuterol MDI/nebs with suboptimal control of her symptoms.? Patient is also following up with cardiology for cardiac component.? She was not able to complete cardiopulmonary exercise testing.? Her pulmonary function test shows some mild COPD that does not fully explain her dyspnea symptoms. Her CT chest shows some emphysema. She continues to complain of severe dyspnea on exertion. ? 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 Mother No problems noted. Social History Household Members: Children Alcohol intake: never Patient Tobacco Use Status: Current everyday Tobacco user Tobacco use type: Cigarette Current occupational status: unemployed Review of Systems Const Denies daytime sleepiness, Denies excessive sweating, Denies fatigue, Denies fever(s), Denies lethargy, Denies malaise, Denies night sweats, Denies snoring and Denies weight loss Eyes Denies blurry vision and Denies itchy eyes ENT Denies nasal congestion, Denies post nasal drip, Denies sinus pain, Denies sinus pressure and Denies other ( Thrush) Card Denies chest pain, Denies pedal edema, Denies dyspnea, Reports dyspnea on exertion, Denies orthopnea and Denies paroxysmal nocturnal dyspnea Resp Denies cough, Denies hemoptysis, Denies excessive phlegm production, Denies dyspnea, Reports dyspnea on exertion, Denies snoring and Denies wheezing GI Denies abdominal pain and Denies heartburn Musc Denies myalgias, Denies arthralgias and Denies joint swelling Skin/Breast Denies rash Neuro Denies memory loss and Denies seizure-like activity Psych Denies abnormal sleep pattern, Denies anxiety and Denies memory loss Endo Denies excessive sweating, Denies fatigue and Denies heat intolerance Win/Lymph Denies easy bruising Aller/Immun Denies itchy eyes, Denies seasonal rhinorrhea and Denies wheezing Physical Exam Vital Signs: Last Vital Signs Pulse 85 04/10/23 14:57 BP 122/60 04/10/23 14:57 Pulse Ox 98 04/10/23 14:57 Oxygen Delivery Method Room Air 04/10/23 14:57 BMI result Body Mass Index 30.1 Const General: no acute distress and alert Nutritional Appearance: not obese Orientation/consciousness: Other orientation findings ( oriented) HEENT Head: Yes atraumatic Eyes General: appearance normal, both eyes and all related structures Sclerae: sclerae normal EOM: EOMs intact bilaterally Neck Neck: Yes supple Lymphatic: no lymphadenopathy noted Resp Effort & Inspection: normal respiratory effort and no use of accessory muscles Auscultation: clear to auscultation bilaterally Cardio Rate: regular rate Rhythm: regular rhythm Heart sounds: no gallops, no murmurs and no rubs Skin General skin exam: other ( warm) Extrem General: No clubbing, No cyanosis and No edema Assessment & Plan Assessment & Plan (1) COPD (chronic obstructive pulmonary disease): Code(s): J44.9 - Chronic obstructive pulmonary disease, unspecified Plan: Mild COPD on maximum medical therapy with Flovent, Stiolto, theophylline, duo nebs, and albuterol MDI. Continue current regimen. Results of pulmonary function test and CT chest reviewed. Patient symptoms are not explained by her mild COPD. (2) Dyspnea on exertion: Code(s): R06.00 - Dyspnea, unspecified Plan: Likely underlying cardiology component. Also with snoring, unrestful sleep, and [place] Sleepiness Scale score of 15. Will obtain 2D echocardiogram and sleep study for further evaluation Orders: Orders CA echo transthoracic complete Today R06.00 - Dyspnea, unspecified RT home sleep study Today G47.33 - Obstructive sleep apnea (adult) (pediatric) Coding Level of Care Code Est Pt Level 4 (79377) Diagnoses COPD (chronic obstructive pulmonary disease) J44.9 Dyspnea on exertion R06.00
[2023-04-10 14:57] VITALS: BP 122/60; PULSE 85; O2SAT 98; BMI 30.1
== END 2023-04-10 15:29 | disposition home or self-care (01) ==
PROVIDERS: PCP Nurse Practitioner Primary Care; Visit Provider Internal Medicine Pulmonary Disease
DX: J44.9 Chronic obstructive pulmonary disease, unspecified (principal); R06.00 Dyspnea, unspecified
CPT/HCPCS: 99214

== ENCOUNTER 2023-04-11 13:32 | Outpatient (AMB) | payer MEDICAID, SELFPAY ==
--- NOTE | 2023-04-11 13:39 | A.OFFVIS_ITS ---
Intake Intake Visit Reasons: 1 month follow up Intake Note: Patient follow up for abdominal pain. Patient cc: abdominal pain, bloating, GERD, constipation. 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 Accompanied by: Employer Allergies sulfamethoxazole [From Bactrim] Allergy (Mild, Verified 04/11/23 13:38) inflamed hives, rash, trimethoprim [From Bactrim] Allergy (Mild, Verified 04/11/23 13:38) inflamed hives, rash, amoxicillin [AMOXICILLIN] Allergy (Unknown, Verified 04/11/23 13:38) HIVES aspirin Allergy (Unknown, Verified 04/11/23 13:38) unknown codeine Allergy (Unknown, Verified 04/11/23 13:38) unknown morphine Allergy (Unknown, Verified 04/11/23 13:38) unknown Penicillins [PENICILLINS] Allergy (Unknown, Verified 04/11/23 13:38) HIVES Sulfa (Sulfonamide Antibiotics) Allergy (Unknown, Verified 04/11/23 13:38) Unknown Medication List - Last Reconciled 04/11/23 by Lorene Trotter PA-C albuterol sulfate 90 mcg/actuation 2 puffs PO Q4-6H PRN bisacodyl (Dulcolax (bisacodyl)) 10 mg [place] DAILY PRN buprenorphine-naloxone 12-3 mg (Suboxone) 30 mg sublingual DAILY clonazepam (Klonopin) 2 mg PO TID clonidine HCl 3 tabs PO BEDTIME dextroamphetamine-amphetamine 20 mg 20 mg PO DAILY@1400 dextroamphetamine-amphetamine 30 mg ER (Adderall XR) 30 mg PO DAILY docusate sodium 100 mg PO docusate sodium (Colace) 200 mg (2 x 100 mg) PO BEDTIME 30 days ergocalciferol (vitamin D2) (Drisdol) 1,250 mcg PO QWEEK folic acid 1 mg PO DAILY ipratropium-albuterol 0.5 mg-3 mg(2.5 mg base)/3 mL 3 mL inhalation Q6H PRN 30 days methylcellulose (laxative) (Citrucel) 500 mg PO BID 30 days metoprolol tartrate 12.5 mg PO omeprazole 40 mg PO ondansetron 4 mg PO Q8H 3 days polyethylene glycol 3350 (Miralax) 17 grams PO DAILY PRN 30 days rosuvastatin 10 mg PO QAM sennosides (senna) 17.2 mg PO BEDTIME sertraline 2 tabs PO QAM theophylline ER 400 mg PO QAM tiotropium-olodaterol 2.5-2.5 mcg/actuation (Stiolto Respimat) 2 puffs PO DAILY verapamil ER 120 mg PO QPM ziprasidone HCl (Geodon) 80 mg PO BID zolpidem (Ambien) 10 mg PO BEDTIME PRN HPI HPI Comments History of Present Illness Details A 58 y/o female hx colon polyps, constipation-is improved, following bowel regimen MiraLax as been very beneficial. She does have some stool output every day. She does take Suboxone daily, tries to maintain high-fiber diet however has difficulty due to not having any dentures. Acid reflux improved, avoid culprits, omeprazole 40 mg daily Continues to have abdominal discomfort for it seems to wax and wane, wonder though has improved. She has had CT in which we had reviewed again today. Here with Out Reach worker= reviewed medication list EGD/ colon 2018- adenoma -she is due for colonoscopy however is had severe constipation we have been holding off until she has a better bowel regimen. She reportedly has been seen by Cardiology she is having a workup there. Awaiting echo/ sleep study No nausea, vomiting fever chills PFSH Medical History (Updated 04/13/23 @ 07:02 by Lorene Trotter PA-C) Acid reflux Adenomatous colon polyp Bipolar disorder Chronic constipation Chronic pain syndrome COVID-19 vaccine series completed Deviated septum Disc degeneration, lumbar Emphysema lung Spondylosis 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 Surgical History History of esophagogastroduodenoscopy (EGD) Hx of colonoscopy Family History Father No problems noted. Mother No problems noted. Social History Household Members: Children Alcohol intake: never Patient Tobacco Use Status: Current everyday Tobacco user Tobacco use type: Cigarette Current occupational status: unemployed Review of Systems Const All systems reviewed & are unremarkable except as noted in HPI and below Card Denies chest pain and Denies dyspnea Resp Denies dyspnea GI Reports abdominal pain, Denies hematochezia, Reports constipation, Denies nausea and Denies vomiting Physical Exam Const General: comfortable Orientation/consciousness: patient oriented x3 Limitations: no limitations Eyes Conjunctivae: conjunctivae normal GI Palpation (GI): Soft to palpation, Tenderness to palpation present (GI) (Mild, diffuse,) and no guarding Auscultation: normal bowel sounds Neuro General: patient oriented x3 Extrem General: Yes full ROM Psych Speech and movement: Clear speech present Affect: normal affect Attitude: cooperative Thought process: Normal thought process present Thought content: Normal thought content present Insight: Good insight present (Psych) Judgement: Good judgement present (Psych) Results Reviewed Results Reviewed: US/US abdomen complete IMPRESSION: No acute findings. Pancreas and mid abdominal aorta is not well seen. Question mild left renal cortical thinning and increased echogenicity CT/CT abdomen pelvis w IV con IMPRESSION: 1.? No acute intra-abdominal process seen. 2.? Moderate to significant constipation. No obstruction. Normal appendix. Constipation has been chronic. Recommend medical treatment. 3.? Bilateral renal cysts and cortical defect lower pole left kidney. ? 4. There is a prominent round lesion tail of pancreas likely normal hepatic tissue. It is unchanged to last exam 11/28/2022 Assessment & Plan Assessment & Plan (1) Chronic constipation: Comment: Much better spirits Medication induced, reinforce Consistent bowel regimen-maintain high-fiber diet Reviewed medication list, previous abdominal imaging with patient and out reach worker Code(s): K59.09 - Other constipation (2) Chronic pain syndrome: Comment: Abdominal pain, wanders, reviewed CT an u/s Physical exam abdomen soft, Code(s): G89.4 - Chronic pain syndrome (3) Tubular adenoma: Comment: Overdue for polyp surveillance Code(s): D36.9 - Benign neoplasm, unspecified site Plan: Will schedule colonoscopy-time appropriate= want to assure good bowel prep (4) Acid reflux: Comment: Continue Prilosec 20 mg b.i.d. Avoid culprits, chew her food well, hope for dentures in the near future Code(s): K21.9 - Gastro-esophageal reflux disease without esophagitis Medications: New bisacodyl (Dulcolax (bisacodyl)) as need for constipation 5 mg PO ONCE PRN 30 tabs 1RF colonoscopy prep Z12.11 - Encounter for screening for malignant neoplasm of colon simethicone (Gas-X Extra Strength) 125 mg PO BEDTIME 30 days PRN 30 caps 2RF abdominal distention Refilled polyethylene glycol 3350 (Miralax) 17 grams PO DAILY 30 days PRN 30 ea 5RF constipation Patient Instructions: 58-year-old pleasant female chronic constipation acid reflux chronic pain follows up today with our H worker. She is in very good spirits. Reviewed previous abdominal imaging She will continue to maintain consistent bowel regimen-give trial to simethicone for gas Reviewed reflux precautions continue PPI avoid culprits Will see her back to discuss colonoscopy, importance of adequate prep Encouraged to call with any questions or concerns Appreciate the opportunity assist in the care this pleasant patient Coding Level of Care Code Est Pt Level 4 (74729) Diagnoses Chronic constipation K59.09 Chronic pain syndrome G89.4 Tubular adenoma D36.9 Acid reflux K21.9 Time Spent (min) 50 Comment Out reach worker present
== END 2023-04-11 15:45 | disposition home or self-care (01) ==
PROVIDERS: PCP Nurse Practitioner Primary Care; Visit Provider Physician Assistant
DX: K59.09 Other constipation (principal); G89.4 Chronic pain syndrome; D36.9 Benign neoplasm, unspecified site; K21.9 Gastro-esophageal reflux disease without esophagitis
CPT/HCPCS: 99214

== ENCOUNTER → 2023-04-11 13:32 | Outpatient (BNVA) | payer MEDICAID, SELFPAY | PROVIDERS: PCP Nurse Practitioner Primary Care; Visit Provider Physician Assistant | DX: K59.09 Other constipation (principal); K21.9 Gastro-esophageal reflux disease without esophagitis; D36.9 Benign neoplasm, unspecified site; Z79.899 Other long term (current) drug therapy | CPT/HCPCS: 99214 ==

== ENCOUNTER → 2023-05-08 13:10 | Outpatient (REF) | payer MEDICAID, SELFPAY ==
--- NOTE | 2023-05-08 13:12 | CA_ITS ---
Transthoracic Echocardiogram Patient (Last, First, Middle): Cherri Nash J Gender: Female Date of : 1965 Age: 58 Procedure Date: 05/08/2023 Procedure Type: Transthoracic Echocardiogram Location: OP Height: 167.64 cm Weight: 82.56 kg BSA: 1.92 m2 Heart Rate: bpm BP: 110 / 68 mmHg Teacher Lip Reading: TO Referring MD: Everton Stephens MD Symptoms: R06.00 - Dyspnea, unspecified Study Quality: Fair/contrast Conclusions: - The left ventricular systolic function is normal. The calculated ejection fraction is 61% by biplane method. - No obvious valvular pathology seen on this study. - There is no evidence of pulmonary hypertension. Findings Procedure Information Contrast agent, definity, is being given per protocol without apparent complications. Left Ventricle Normal left ventricular cavity size. There is normal left ventricular wall thickness. The left ventricular systolic function is normal. The calculated ejection fraction is 61% by biplane method. There is no evidence of regional wall motion abnormalities. Diastolic function is normal for age. Right Ventricle Normal right ventricular cavity size and systolic function. Atria Both atria are normal in size. Aortic Valve There is a normal trileaflet aortic valve. There is no aortic valve stenosis. There is no aortic valve regurgitation. Mitral Valve The mitral valve appears normal. There is mild anterior mitral leaflet thickening. There is trace mitral valve regurgitation. There is no mitral valve stenosis. Pulmonic Valve The pulmonic valve is likely normal. Tricuspid Valve Normal tricuspid valve structure. There is trace tricuspid valve regurgitation. There is no evidence of pulmonary hypertension. Great Vessels The asc aorta is normal in size. Venous The inferior vena cava is normal in size and collapses greater than 50% with inspiration. Pericardium/Pleural Prominent epicardial adipose tissue noted. There is no evidence of pericardial effusion. Prior Study Comparison No significant change compared to prior study dated: 08/24/2021. Reporting delayed due to technical issues. Recommendations, Care & Conclusions No obvious valvular pathology seen on this study. Measurements 2D Linear Measurements IVSd: 0.99 0.6-0.9/0.6-1.0 cm LVIDd: 4.90 3.9-5.3/4.2-5.9 cm LVIDd Index: 2.55 2.4-3.2/2.2-3.1 cm/m2 LVIDs: 3.65 2.0-3.6 cm LVPWd: 0.82 0.7-1.1 cm LA Diam: 3.00 2.7-3.8/3.0-4.0 cm LAIDs Index: 1.56 1.5-2.3 cm/m2 LV Mass: 191.42 67-162/88-224 g LV Mass Index: 99.70 43-95/49-115 g/m2 LVOT Diam: 2.10 3.0+(-)1.3 cm 2D Systolic Function EF 4C: 62.20 >55% EF 2C: 59.00 >55% EF BiP: 61.20 >55% Mitral Valve MV Pk E: 0.46 MV PK A: 0.54 MV Decel Time: 239.00 E/A: 0.80 E'Lateral: 7.62 E'Medial: 6.96 E/E' Med: 6.60 E/E' Lat: 6.00 PHT: 70.00 MVA PHT: 3.14 Decel [place]: 1.92 Aortic Valve AoV Pk Tr: 1.32 AoV Mn Tr: 0.90 AoV VTI: 0.26 AoV Pk Grad: 7.00 Aov Mn Grad: 4.00 ROSS Cont.VTI: 2.59 LVOT LVOT Pk Tr: 0.96 LVOT Mn Tr: 0.63 LVOT VTI: 0.20 LVOT Pk Grad: 4.00 LVOT Mn Grad: 2.00 LVOT Diam: 2.10 LVOT Area: 3.46 Diastolic Function MV Pk E: 0.46 MV Pk A: 0.54 E/A: 0.80 E'Medial: 6.96 E/E' Med: 6.60 E' Laterial: 7.62 E/E' Lat: 6.00 Right Ventricle TAPSE (mm): 20.00 TVS' Tr: 9.25 Tricuspid Valve TR Pk Tr: 2.06 TR Pk Grad: 17.00 RA Press: 3.00 RVSP: 20.00 Great Vessels Aorta Sinus of Valsalva: 2.97 2.0-3.5 cm Ao Asc: 2.80 2.1-3.4 cm Updated in Other Vendor System with Status of Final Mike Mcfadden MD electronically signed on 05/12/2023 11:57:40 AM with status of Final
== END ==
LOC: HO.CARD 13:10
PROVIDERS: PCP Nurse Practitioner Primary Care; Visit Provider Internal Medicine Pulmonary Disease
DX: R06.00 Dyspnea, unspecified (principal)
CPT/HCPCS: 93306; Q9957

== ENCOUNTER → 2023-05-08 13:12 | Outpatient (BNV) | payer MEDICAID, SELFPAY | PROVIDERS: PCP Nurse Practitioner Primary Care; Visit Provider Internal Medicine | DX: I34.89 Other nonrheumatic mitral valve disorders (principal) | CPT/HCPCS: 93306 ==

== ENCOUNTER → 2023-05-10 15:40 | Outpatient (REF) | payer MEDICAID, SELFPAY | LOC: HO.SL 15:40 | PROVIDERS: PCP Nurse Practitioner Primary Care; Visit Provider Internal Medicine Pulmonary Disease | DX: Z13.89 Encounter for screening for other disorder (principal) ==

== ENCOUNTER 2023-06-01 14:40 | Outpatient (REF) | payer MEDICAID, SELFPAY ==
--- NOTE | ~2023-06-01 | XR_ITS ---
EXAMINATION: XR HAND, RIGHT CLINICAL INFORMATION: Pain. COMPARISON: Radiographs dated 09/22/2016. TECHNIQUE: PA, lateral, and oblique views of the right hand. FINDINGS: Bony alignment and mineralization are normal. There is a slight ulnar positive variance. There is very mild osteoarthritic change of the second distal interphalangeal joint, and mild osteoarthritic change is seen of the third distal interphalangeal joint. On the frontal view, a small nondisplaced fracture fragment is seen involving the medial margin of the head of the third middle phalanx. There is associated intra-articular extension of this fracture line. No bone erosion is noted. There is no focal soft tissue swelling, gas or foreign body. XR/XR hand LT min 3V IMPRESSION: 1. A small nondisplaced fracture is seen of the medial margin of the head of the right third middle phalanx. This may be chronic upon comparison with radiographs dated 09/22/2016, and clinical correlation is recommended. 2. There is very mild osteoarthritic change of the right second distal interphalangeal joint, and mild osteoarthritic change is seen of the right third distal interphalangeal joint. EXAMINATION: XR HAND, LEFT CLINICAL INFORMATION: Pain. COMPARISON: Radiographs dated 09/22/2016. TECHNIQUE: PA, lateral, and oblique views of the left hand. FINDINGS: Bony alignment and mineralization are normal. There is a slight ulnar positive variance. There is mild osteoarthritic change of the second and third distal interphalangeal joints. No fracture or dislocation is seen. The proximal and distal carpal rows are intact. There is no bony erosion. No focal soft tissue swelling, gas or foreign body is seen. IMPRESSION: There is mild osteoarthritic change of the left second and third distal interphalangeal joints.
--- NOTE | ~2023-06-01 | XR_ITS ---
EXAMINATION: XR HAND, RIGHT CLINICAL INFORMATION: Pain. COMPARISON: Radiographs dated 09/22/2016. TECHNIQUE: PA, lateral, and oblique views of the right hand. FINDINGS: Bony alignment and mineralization are normal. There is a slight ulnar positive variance. There is very mild osteoarthritic change of the second distal interphalangeal joint, and mild osteoarthritic change is seen of the third distal interphalangeal joint. On the frontal view, a small nondisplaced fracture fragment is seen involving the medial margin of the head of the third middle phalanx. There is associated intra-articular extension of this fracture line. No bone erosion is noted. There is no focal soft tissue swelling, gas or foreign body. XR/XR hand RT min 3V IMPRESSION: 1. A small nondisplaced fracture is seen of the medial margin of the head of the right third middle phalanx. This may be chronic upon comparison with radiographs dated 09/22/2016, and clinical correlation is recommended. 2. There is very mild osteoarthritic change of the right second distal interphalangeal joint, and mild osteoarthritic change is seen of the right third distal interphalangeal joint. EXAMINATION: XR HAND, LEFT CLINICAL INFORMATION: Pain. COMPARISON: Radiographs dated 09/22/2016. TECHNIQUE: PA, lateral, and oblique views of the left hand. FINDINGS: Bony alignment and mineralization are normal. There is a slight ulnar positive variance. There is mild osteoarthritic change of the second and third distal interphalangeal joints. No fracture or dislocation is seen. The proximal and distal carpal rows are intact. There is no bony erosion. No focal soft tissue swelling, gas or foreign body is seen. IMPRESSION: There is mild osteoarthritic change of the left second and third distal interphalangeal joints.
== END 2023-06-01 14:41 | disposition home or self-care (01) ==
LOC: HO.XRAY 14:40
PROVIDERS: PCP Nurse Practitioner Primary Care; Visit Provider Nurse Practitioner Primary Care
DX: M79.89 Other specified soft tissue disorders (principal)
CPT/HCPCS: 73130

== ENCOUNTER 2023-07-02 16:14 | Outpatient (REF) | payer MEDICAID, SELFPAY ==
[2023-07-02 17:45] LABS: Phosphorus 3.3 mg/dL (2.7-4.5)
[2023-07-05 14:03] LABS: Calcium, Ionized 5.5 mg/dL (4.7-5.5)
[2023-07-08 01:19] LABS: VITAMIN D (1,25 OH) D3 <8 pg/mL; Vit D (1,25-Dihydroxy) Total 49 pg/mL (18-72); Vitamin D (1,25 OH) D2 49 pg/mL
[2023-07-09 10:29] LABS: Calcium (PTHI) 10.7 mg/dL (8.6-10.4); PTHI 95 pg/mL (16-77)
== END 2023-07-02 16:15 | disposition home or self-care (01) ==
LOC: HO.HHCL 16:14
PROVIDERS: Visit Provider Nurse Practitioner Primary Care
DX: E83.52 Hypercalcemia (principal)
CPT/HCPCS: 36415; 82330; 82652; 83970; 84100

== ENCOUNTER → 2023-07-03 19:30 | Outpatient (REF) | payer MEDICAID, SELFPAY | LOC: HO.SL 19:30 | PROVIDERS: PCP Nurse Practitioner Primary Care; Visit Provider Internal Medicine Pulmonary Disease | DX: G47.33 Obstructive sleep apnea (adult) (pediatric) (principal) | CPT/HCPCS: 95810 ==

== ENCOUNTER → 2023-07-03 21:45 | Outpatient (BNV) | payer MEDICAID, SELFPAY | PROVIDERS: PCP Nurse Practitioner Primary Care; Visit Provider Internal Medicine | DX: G47.33 Obstructive sleep apnea (adult) (pediatric) (principal); R06.83 Snoring | CPT/HCPCS: 95810 ==

== ENCOUNTER 2023-07-04 11:37 | Outpatient (AMB) | payer MEDICAID, SELFPAY ==
--- NOTE | 2023-07-04 11:42 | MHC.OFFVIS ---
Intake Vital Signs 07/04/23 11:43 Height 5 ft 5 in Weight 182 lb BMI 30.3 BP 110/67 Blood Pressure Location Lt brachial Position Sitting Pulse 90 Intake Visit Reasons: 2month follow up r/s from 06/13 Intake Note: Patient follow up for acid reflex. Patient CC: Nauseas, Dizziness, abdominal pain, acid reflex and juan antonio swallowing problems, denies any other GI issues. 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 Required: No Accompanied by: Self / Same As Patient Allergies sulfamethoxazole [From Bactrim] Allergy (Mild, Verified 07/04/23 11:41) inflamed hives, rash, trimethoprim [From Bactrim] Allergy (Mild, Verified 07/04/23 11:41) inflamed hives, rash, amoxicillin [AMOXICILLIN] Allergy (Unknown, Verified 07/04/23 11:41) HIVES aspirin Allergy (Unknown, Verified 07/04/23 11:41) unknown codeine Allergy (Unknown, Verified 07/04/23 11:41) unknown morphine Allergy (Unknown, Verified 07/04/23 11:41) unknown Penicillins [PENICILLINS] Allergy (Unknown, Verified 07/04/23 11:41) HIVES Sulfa (Sulfonamide Antibiotics) Allergy (Unknown, Verified 07/04/23 11:41) Unknown Medication List - Last Reconciled 07/04/23 by Lorene Trotter PA-C albuterol sulfate 90 mcg/actuation 2 puffs PO Q4-6H PRN bisacodyl (Dulcolax (bisacodyl)) 10 mg [place] DAILY PRN bisacodyl 5 mg PO DAILY PRN buprenorphine-naloxone 12-3 mg (Suboxone) 30 mg sublingual DAILY clonazepam (Klonopin) 2 mg PO TID clonidine HCl 3 tabs PO BEDTIME dextroamphetamine-amphetamine 20 mg 20 mg PO DAILY@1400 dextroamphetamine-amphetamine 30 mg ER (Adderall XR) 30 mg PO DAILY docusate sodium 100 mg PO docusate sodium (Colace) 200 mg (2 x 100 mg) PO BEDTIME 30 days ergocalciferol (vitamin D2) (Drisdol) 1,250 mcg PO QWEEK folic acid 1 mg PO DAILY ipratropium-albuterol 0.5 mg-3 mg(2.5 mg base)/3 mL 3 mL inhalation Q6H PRN 30 days methylcellulose (laxative) (Citrucel) 500 mg PO BID 30 days metoprolol tartrate 12.5 mg PO omeprazole 40 mg PO ondansetron 4 mg PO Q8H 3 days polyethylene glycol 3350 (Miralax) 17 grams PO DAILY PRN 30 days rosuvastatin 10 mg PO QAM sertraline 2 tabs PO QAM simethicone (Gas-X Extra Strength) 125 mg PO BEDTIME PRN 30 days theophylline ER 400 mg PO QAM tiotropium-olodaterol 2.5-2.5 mcg/actuation (Stiolto Respimat) 2 puffs PO DAILY verapamil ER 120 mg PO QPM ziprasidone HCl (Geodon) 80 mg PO BID zolpidem (Ambien) 10 mg PO BEDTIME PRN HPI HPI Comments History of Present Illness Details With a 58-year-old female was last seen back in March with persistent acid reflux chronic constipation due for screening colonoscopy. However we had started her with a bowel regimen so that we could prepare her for a successful bowel prep for colonoscopy. She had begun a cardiac workup per her report, She presents today- 5 years of abdominal pain entire abdomen hurts- my liver, ovaries, uterus -she has not seen pit clerk in greater than a decade-she has no further menses- TL 2008 LBP for years. Abdominal pain starts at night only- BM-consistent regimen- having 1-2 normal BM QD- that problem is fixed. she has not yet seen cardiology- she cancels due to other appts. She is being referred to pain clinic- by pcp She has no nausea, vomiting, hematemesis, hematochezia no fever or chills PFSH Medical History Acid reflux Adenomatous colon polyp Bipolar disorder Chronic constipation Chronic pain syndrome COVID-19 vaccine series completed Deviated septum Disc degeneration, lumbar Emphysema lung Spondylosis 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 Surgical History History of esophagogastroduodenoscopy (EGD) Hx of colonoscopy Family History Father No problems noted. Mother No problems noted. Social History Household Members: Children Alcohol intake: never Patient Tobacco Use Status: Current everyday Tobacco user Tobacco use type: Cigarette Current occupational status: unemployed Review of Systems Const All systems reviewed & are unremarkable except as noted in HPI and below Card Denies chest pain and Reports dyspnea on exertion Resp Reports dyspnea on exertion GI Reports abdominal pain, Denies hematochezia, Denies constipation, Reports heartburn, Denies nausea and Denies vomiting Psych Reports anxiety, Reports depression, Reports difficulty concentrating, Reports irritability, Denies homicidal ideation and Denies suicidal ideation Physical Exam Vital Signs: Last Vital Signs Pulse 90 07/04/23 11:43 BP 110/67 07/04/23 11:43 BMI result Body Mass Index 30.3 Const General: comfortable and anxious Orientation/consciousness: patient oriented x3 Limitations: no limitations Resp Effort & Inspection: normal respiratory effort and able to speak in complete sentences Auscultation: rhonchi Cardio Rate: regular rate (Nov) Rhythm: regular rhythm GI Palpation (GI): Soft to palpation (Diffuse nonspecific), Tenderness to palpation present (GI) and no guarding Auscultation: normal bowel sounds Neuro General: patient oriented x3 Extrem General: Yes full ROM Psych Appearance: disheveled Speech and movement: Clear speech present Affect: Sad affect present Attitude: cooperative Thought process: Circumstantial thought process present Thought content: Normal thought content present Results Reviewed Results Reviewed: US/US abdomen complete IMPRESSION: No acute findings. Pancreas and mid abdominal aorta is not well seen. Question mild left renal cortical thinning and increased echogenicity CT/CT abdomen pelvis w IV con IMPRESSION: 1.? No acute intra-abdominal process seen. 2.? Moderate to significant constipation. No obstruction. Normal appendix. Constipation has been chronic. Recommend medical treatment. 3.? Bilateral renal cysts and cortical defect lower pole left kidney. ? 4. There is a prominent round lesion tail of pancreas likely normal hepatic tissue. It is unchanged to last exam 11/28/2022 Assessment & Plan Assessment & Plan (1) Abdominal pain: Comment: Mild tenderness diffuse No guarding Code(s): R10.9 - Unspecified abdominal pain (2) FILIPE (obstructive sleep apnea): Comment: COPD, FILIPE Code(s): G47.33 - Obstructive sleep apnea (adult) (pediatric) Plan: Will need anesthesia consult (3) SOB (shortness of breath): Comment: Sedentary lifestyle Code(s): R06.02 - Shortness of breath (4) Chronic constipation: Comment: Suboxone, Medication induced, again reinforce Consistent bowel regimen-maintain high-fiber diet Reviewed medication list, previous abdominal imaging with patient Code(s): K59.09 - Other constipation Plan: Again review and reinforced consistent bowel regimen (5) Acid reflux: Comment: Continue Prilosec 20 mg b.i.d. Avoid culprits, chew her food well, hope for dentures in the near future Code(s): K21.9 - Gastro-esophageal reflux disease without esophagitis Plan: Avoid culprits, Reviewed precautions (6) Chronic pain syndrome: Comment: Abdominal pain, wanders, reviewed CT an u/s Physical exam abdomen soft, Code(s): G89.4 - Chronic pain syndrome (7) Tubular adenoma: Comment: Overdue for polyp surveillance- finally BM daily w/ consistent bowel regimen Code(s): D36.9 - Benign neoplasm, unspecified site Plan: Colonoscopy for polyp surveillance-anesthesia consult Plan Polyp surveillance colonoscopy- MG prep- MIRALAX BID- for 1 wk prior to prep day ANESTHESIA consult- COPD/FILIPE Please reinforce instructions Orders: Orders Colonoscopy - GI Use Only 07/04/23 D36.9 - Benign neoplasm, unspecified site, G47.33 - Obstructive sleep apnea (adult) (pediatric), J44.1 - Chronic obstructive pulmonary disease with (acute) exacerbation, R10.9 - Unspecified abdominal pain Medications: New bisacodyl (Dulcolax (bisacodyl)) Day before procedure, prep day Take 4 tablets by mouth upon awakening followed by large glass of water 20 mg (4 x 5 mg) PO ONCE 4 tabs 0RF colonoscopy prep 1 day Z12.11 - Encounter for screening for malignant neoplasm of colon polyethylene glycol 3350 (Miralax) Take as directed by mouth the day before your procedure. 238 grams PO ONCE PRN 238 grams 0RF laxative effect 1 day Patient Instructions: 58-year-old female a personal history of colon polyps, overdue for colonoscopy-chronic constipation multiple comorbidities, Chronic pain, chronic abdominal pain At this point successful with bowel regimen for normal bowel pattern will attempt to get her scheduled for polyp surveillance colonoscopy Given comorbidities she will need anesthesia consult We discussed procedure, rare risk need for escort Detailed instructions for prep reviewed, literature given Understands the need to report any exacerbation of respiratory status prior to procedure Coding Level of Care Code Est Pt Level 4 (81309) Diagnoses Abdominal pain R10.9 FILIPE (obstructive sleep apnea) G47.33 SOB (shortness of breath) R06.02 Chronic constipation K59.09 Acid reflux K21.9 Chronic pain syndrome G89.4 Tubular adenoma D36.9 Time Spent (min) 35
[2023-07-04 11:43] VITALS: BP 110/67; PULSE 90; BMI 30.3
== END 2023-07-04 13:35 | disposition home or self-care (01) ==
LOC: HO.HGI 11:37
PROVIDERS: PCP Nurse Practitioner Primary Care; Visit Provider Physician Assistant
DX: R10.9 Unspecified abdominal pain (principal); G47.33 Obstructive sleep apnea (adult) (pediatric); R06.02 Shortness of breath; K59.09 Other constipation; K21.9 Gastro-esophageal reflux disease without esophagitis; G89.4 Chronic pain syndrome; D36.9 Benign neoplasm, unspecified site
CPT/HCPCS: 99214

== ENCOUNTER → 2023-07-04 11:37 | Outpatient (BNVA) | payer MEDICAID, SELFPAY | PROVIDERS: PCP Nurse Practitioner Primary Care; Visit Provider Physician Assistant | DX: K59.09 Other constipation (principal); K21.9 Gastro-esophageal reflux disease without esophagitis; R10.9 Unspecified abdominal pain; G47.33 Obstructive sleep apnea (adult) (pediatric); R06.02 Shortness of breath; D36.9 Benign neoplasm, unspecified site; G89.4 Chronic pain syndrome | CPT/HCPCS: 99212 ==

== ENCOUNTER 2023-08-06 13:16 | Outpatient (AMB) | payer MEDICAID, SELFPAY ==
--- NOTE | 2023-08-06 13:19 | A.OFFVIS_ITS ---
Intake Vital Signs 08/06/23 13:27 Height 5 ft 5 in Weight 178 lb 6 oz BMI 29.7 BP 102/62 Blood Pressure Location Lt brachial Position Sitting Respiration 12 Pulse 97 Pulse Source Pulse Oximeter Pulse Oximetry (%) 95 Oxygen Delivery Method Room Air Intake Visit Reasons: SPONDYLOSIS OF LUMBAR SPINE/confirmed Allergies sulfamethoxazole [From Bactrim] Allergy (Mild, Verified 08/06/23 13:27) inflamed hives, rash, trimethoprim [From Bactrim] Allergy (Mild, Verified 08/06/23 13:) inflamed hives, rash, amoxicillin [AMOXICILLIN] Allergy (Unknown, Verified 08/06/23 13:) HIVES aspirin Allergy (Unknown, Verified 08/06/23 13:) unknown codeine Allergy (Unknown, Verified 08/06/23 13:) unknown morphine Allergy (Unknown, Verified 08/06/23 13:) unknown Penicillins [PENICILLINS] Allergy (Unknown, Verified 08/06/23 13:) HIVES Sulfa (Sulfonamide Antibiotics) Allergy (Unknown, Verified 08/06/23 13:) Unknown HPI HPI Comments History of Present Illness Details Cherri is back in my office after a long period of absence. She received diagnostic medial branch block originally as below and after that she receives radiofrequency ablation. While medial branch block gave her 10 hours of profound pain relief, radiofrequency ablation resulted only in few weeks of pain improvement. She was explained that we can try at 6 month interval of time Sprint PNS however she did not show up on the appointment in January or February 2022. Today she reports severe pain she reports pain from the neck all the way down to the coccyx in the spine, I offered her Sprint PNS and she agreed to go for t he procedure. I will schedule her for the procedure of L5 on the right following L5 on the left Sprint PNS. Prior: bilateral L3-L4 L5 radiofrequency ablation on 09/13/2021. She reports that pain in the back is very strong. She reported that pain relief lasted no more than few weeks. She reports that pain now is back and is stronger than it was before the radiofrequency ablation. Before radiofrequency ablation she received diagnostic medial branch block which provided 95% pain improvement for the 10 hours after the procedure. She was offered to come on or after February [id number] we will not be able to perform any procedures to address her lower back pain. complains on pain in lower back.? She also complains on pain in the shoulders and neck and lower back pain and pain going down to the left lower extremity she reports that this problem started in 2017 she reports that her problem comes from degenerative disc disease of lumbar spine.?physical therapy 1 year ago chiropractic manipulations 1 year ago were absolutely useless for her pain.? She had 4 months of continues physical therapy and chiropractic manipulation she reports no? pain relief whatsoever. MRI of lumbar spine dictation available as below. She went for bilateral L3-L4 dorsal ramus L5 medial branch block diagnostic.? She received bupivacaine at each of the locations no more than 1 cc.? She reports today 9-10 hours of 85% pain relief post injection.? After that pain gradually went up.? [facility] Medical History Acid reflux Adenomatous colon polyp Bipolar disorder Chronic constipation Chronic pain syndrome COVID-19 vaccine series completed Deviated septum Disc degeneration, lumbar Emphysema lung Spondylosis 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 Surgical History History of esophagogastroduodenoscopy (EGD) Hx of colonoscopy Family History Father No problems noted. Mother No problems noted. Social History Household Members: Children Alcohol intake: never Patient Tobacco Use Status: Current everyday Tobacco user Tobacco use type: Cigarette Current occupational status: unemployed Review of Systems Const All systems reviewed & are unremarkable except as noted in HPI and below Physical Exam Vital Signs: Last Vital Signs Pulse 97 08/06/23 13:27 Resp 12 08/06/23 13:27 BP 102/62 08/06/23 13:27 Pulse Ox 95 08/06/23 13:27 Oxygen Delivery Method Room Air 08/06/23 13:27 BMI result Body Mass Index 29.7 Const General: cooperative, comfortable, no acute distress, well developed, alert and awake Eyes Pupils: Equal, round and reactive pupils present EOM: EOMs intact bilaterally Resp Effort & Inspection: normal respiratory effort, able to speak in complete sentences, normal respiratory pattern, no audible wheezes and no cough Cardio Jugular venous distension: no JVD Back/Spine/Pelvis Other: Able to stand on bilateral tiptoes in bilateral heels demonstrating normal strength of bilateral lower extremities. Flexing forward alleviates her pain. Flexing backwards aggravates her pain. Flexing sideways aggravates her pain. Loading test aggravates her pain. SLR does not increase her pain bilaterally. Slump test is negative bilateral. Naif test is negative bilaterally. Denies incontinence with urine and/or stool denies urinary retention denies Valsalva maneuver positive for pain increase. Neuro Cranial nerves: Yes Equal, round and reactive pupils present Results Reviewed Results Reviewed: MRI of the lumbar spine 11/19/2020 vertebral bodies and paraspinal structures: Normal vertebral body alignment lumbar loud will doses is maintained. No acute fracture or subluxation. No loss of vertebral body height. Mild loss of intervertebral disc height of the L3-L4. More severe loss of intervertebral disc height at L5-S1 with minimal Modic type degenerative endplate changes. Posterior vertebral body hemangioma within the L1. No acute abnormal marrow signal. Small multiple appearing bilateral renal cysts. The visualized paraspinal soft tissues are otherwise unremarkable. Spinal levels: [id number] L2-L3 all: No significant disc bulge no central canal stenosis or neural foraminal stenosis. L3-L4: Shallow broad-based disc bulge with with superimposed right foraminal disc protrusion and annular fissuring without contacting the exiting right L3 nerve root. Bilateral facet arthropathy and thickening of the ligamentum flavum with moderate right and mild left neural foraminal stenosis. L4-5: Shallow broad-based disc bulge slightly a symmetric to the left. Bilateral facet arthropathy and thickening of the ligamentum flavum with mild to moderate bilateral neural foraminal stenosis. L5-S1 broad-based disc osteophyte complex a symmetric to the right bilateral facet arthropathy with mild bilateral neural foraminal stenosis. Assessment & Plan Assessment & Plan (1) Spondylosis 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: Code(s): M47.817 - Spondylosis without myelopathy or radiculopathy, lumbosacral region (2) Disc degeneration, lumbar: Code(s): M51.36 - Other intervertebral disc degeneration, lumbar region (3) Chronic pain syndrome: Comment: Abdominal pain, wanders, reviewed CT an u/s Physical exam abdomen soft, Code(s): G89.4 - Chronic pain syndrome Plan Good results of medial branch block bilateral unfortunately did not cast into good results of radiofrequency ablation. She reported minimal pain improvement and she reported pain exacerbation after the procedure. I offered her to discuss SPRINT procedure after February 11, 2022. The patient was missing for follow-up for the entire here. Now she reports here with severe pain in the lower back as well as pain in the cervical spine and thoracic spine. As we planned I offered her Sprint PNS. I will schedule her for the appointment of the Sprint on the right 1st L5 possible for possible S1 and after that in 2 weeks I will do spring on the left in the same area. Coding Level of Care Code Est Pt Level 3 (68693) Diagnoses Spondylosis 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 M47.817 Disc degeneration, lumbar M51.36 Chronic pain syndrome G89.4
[2023-08-06 13:27] VITALS: BP 102/62; PULSE 97; RESP 12; O2SAT 95; BMI 29.7
== END 2023-08-06 13:38 | disposition home or self-care (01) ==
PROVIDERS: PCP Nurse Practitioner Primary Care; Visit Provider Anesthesiology
DX: M47.817 Spondylosis without myelopathy or radiculopathy, lumbosacral region (principal); M51.36 Other intervertebral disc degeneration, lumbar region; G89.4 Chronic pain syndrome
CPT/HCPCS: 99213

== ENCOUNTER → 2023-08-06 13:16 | Outpatient (BNVA) | payer MEDICAID, SELFPAY | PROVIDERS: PCP Nurse Practitioner Primary Care; Visit Provider Anesthesiology | DX: M47.817 Spondylosis without myelopathy or radiculopathy, lumbosacral region (principal); M51.36 Other intervertebral disc degeneration, lumbar region; G89.4 Chronic pain syndrome | CPT/HCPCS: 99212 ==

== ENCOUNTER → 2023-08-10 09:16 | Outpatient (BNVA) | payer MEDICAID, SELFPAY | PROVIDERS: PCP Nurse Practitioner Primary Care; Visit Provider Internal Medicine Gastroenterology ==

== ENCOUNTER 2023-08-10 09:17 | Outpatient (AMB) | payer MEDICAID, SELFPAY ==
--- NOTE | 2023-08-10 09:18 | A.OFFVIS_ITS ---
Intake Vital Signs 08/10/23 09:23 Height 5 ft 5 in Weight 179 lb BMI 29.8 BP 87/55 L Blood Pressure Location Lt brachial Position Right Lateral Pulse 61 Intake Visit Reasons: Abdominal pain Intake Note: Patient follow up for abdominal pain. Patient former patient of Lorene Trotter she was 30 minutes late for her appt today and she is complaining of nauseas, abdominal pain with bloating, some acid reflex with burning sensation and denies any other GI issues. Operation Agent Required: No Accompanied by: Employee Allergies codeine Allergy (Severe, Verified 11/08/23 11:51) Anaphylaxis aspirin Allergy (Mild, Verified 11/08/23 11:51) Hives Penicillins [PENICILLINS] Allergy (Mild, Verified 11/08/23 11:51) HIVES Sulfa (Sulfonamide Antibiotics) Allergy (Mild, Verified 11/08/23 11:51) Hives sulfamethoxazole [From Bactrim] Allergy (Mild, Verified 11/08/23 11:51) inflamed hives, rash, trimethoprim [From Bactrim] Allergy (Mild, Verified 11/08/23 11:51) inflamed hives, rash, amoxicillin [AMOXICILLIN] Allergy (Unknown, Verified 11/08/23 11:51) HIVES citalopram [From Celexa] Allergy (Verified 11/08/23 11:51) Hives lamotrigine [From Lamictal] Allergy (Verified 11/08/23 11:51) Hives morphine Adverse Reaction (Mild, Verified 11/08/23 11:51) Itching haloperidol [From Haldol] Adverse Reaction (Verified 11/08/23 11:51) Angioedema Medication List - Last Reconciled 08/10/23 by Andrew Bruno MD albuterol sulfate 90 mcg/actuation 2 puffs PO Q4-6H PRN bisacodyl 5 mg PO DAILY PRN bisacodyl (Dulcolax (bisacodyl)) 20 mg (4 x 5 mg) PO ONCE 1 day bisacodyl (Dulcolax (bisacodyl)) 10 mg KS DAILY PRN buprenorphine-naloxone 12-3 mg (Suboxone) 30 mg sublingual DAILY clonazepam (Klonopin) 2 mg PO TID clonidine HCl 3 tabs PO BEDTIME dextroamphetamine-amphetamine 20 mg 20 mg PO DAILY@1400 dextroamphetamine-amphetamine 30 mg ER (Adderall XR) 30 mg PO DAILY docusate sodium 100 mg PO docusate sodium (Colace) 200 mg (2 x 100 mg) PO BEDTIME 30 days ergocalciferol (vitamin D2) (Drisdol) 1,250 mcg PO QWEEK folic acid 1 mg PO DAILY ipratropium-albuterol 0.5 mg-3 mg(2.5 mg base)/3 mL 3 mL inhalation Q6H PRN 30 days methylcellulose (laxative) (Citrucel) 500 mg PO BID 30 days metoprolol tartrate 12.5 mg PO omeprazole 40 mg PO ondansetron 4 mg PO Q8H 3 days polyethylene glycol 3350 (Miralax) 238 grams PO ONCE PRN 1 day polyethylene glycol 3350 (Miralax) 17 grams PO DAILY PRN 30 days rosuvastatin 10 mg PO QAM sertraline 2 tabs PO QAM simethicone (Gas-X Extra Strength) 125 mg PO BEDTIME PRN 30 days theophylline ER 400 mg PO QAM tiotropium-olodaterol 2.5-2.5 mcg/actuation (Stiolto Respimat) 2 puffs PO DAILY verapamil ER 120 mg PO QPM ziprasidone HCl (Geodon) 80 mg PO BID zolpidem (Ambien) 10 mg PO BEDTIME PRN HPI Abdominal pain HPI Details GI clinic visit for this 58-year-old female for FU of GERD, iron deficiency anemia, chronic constipation, abdominal pain and weight loss. CHRONIC ILLNESSES: hypercholesterolemia, depressive disorder, hepatitis C - treated - viral load < 1.18 in 08/2018, vitamin D deficiency, slow transit const ipation, chronic cough, smoker [facility]S [facility]: 06/11/19 H&H of 13.6 and 40.3 improved from February 2019), platelet 330, normal Chem panel and LFTs ENDOSCOPIC STUDIES: 2018 EGD AND COLON SHOWED: LARYNX: Mild changes of LPRD ESOPHAGUS: Mild distal esophagitis. Dysphagia likely due to esophageal motility disorder versus EOE. STOMACH: gastric polyps, gastritis in fundus DUODENUM: Normal Colonoscopy Findings: Four polyps removed Constipation likely due to slow transit versus IBS with constipation Plan: Continue present medications (Omeprazole at 40 mg PO once daily) Patient has an appointment on 04/30/2018 in the GI Clinic with Andrew Bruno M.D. Repeat Colonoscopy interval based on path results. Above findings were discussed with Cherri and she was advised to keep her GI clinic appointment to discuss biopsy results. 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 Also has chronic back pain. Complains of nausea all the time - unable to puke Constipation is better - has a BM 2-3 times a day with loose BMs. Taking Miralax 1-2 times a day. Pain increased despite relief of constipation. Appetite is poor - lives on cereal, yogurt, rice pudding Denies wt loss - usually 171 to 182 lbs Lives with her 18 yr old daughter. 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 Abdominal pain starts at night only- BM-consistent regimen- having 1-2 normal BM QD- that problem is fixed. she has not yet seen cardiology- she cancels due to other appts. She is being referred to pain clinic- by pcp She has no nausea, vomiting, hematemesis, hematochezia no fever or chills ?Worried since her 14 Yr old daughter has been sick and missing school (9th Grade). ?Heartburn is well controlled with Prilosec 40 mg twice a day. ?Notes heartburn within 6 hours if she forgets to take it. ?Taking iron and vitamin C for iron deficiency anemia and advised to stop since anemia has resolved. ?Feels lethargic and fatigued every day. ?Trying to drink more fluid. ?Urinates 2-3 times a day. ?Drinks 3-4 glasses of water a day - tries to add some flavor so she can drink it. ?Gets short of breath when she stands for too long doing her dishes. ?Saw a instrumentation technologist 2 yrs ago. ?Cut back on smoking from 2 PPD to 7 Cigg per day and is trying to quit. ?PAST GI HISTORY BY REVIEW OF MEDICAL RECORDS: ?Patient was last seen on Aug, 2019: Assessments ?1. Gastroesophageal reflux disease with esophagitis - K21.0 (Primary) ?2. Iron deficiency anemia, unspecified iron deficiency anemia type - D50.9 ?3. Constipation, unspecified constipation type - K59.00 ?54 YF with hypercholesterolemia, depressive disorder, hepatitis C - treated, vitamin D deficiency, slow transit constipation, chronic cough, smoker with history of GERD here for FU of GERD, ARACELY, constipation and weight loss. ?Did not have enough money to buy food and was giving food to her daughter and was staying hungry with weight loss. I suspect iron deficiency anemia is likely nutritional in etiology since stool hemoccults x 3 were negative in the past. Iron deficiency anemia has improved and she has regained some of the weight she lost. ?1. Gastroesophageal reflux disease, esophagitis presence not specified ?Continue present medications (Omeprazole at 40 mg PO twice daily for GERD. ?. ?2. Iron deficiency anemia, unspecified iron deficiency anemia type ?LAB: CREATININE ?LAB: CBC w/o DIFF ?Notes: Iron deficiency anemia improved with oral iron replacement. Patient was advised to continue ferrous sulfate and vitamin C once daily. ?3. Chronic constipation ?Notes: Advised to take Miralax daily for constipation. If symptoms persist, she can be switched to Linzess. ?Treatment ?1. Gastroesophageal reflux disease with esophagitis ?Notes: ?PATIENT INSTRUCTIONS: ?DECREASE IRON AND VITAMIN C TO SUNDAY, SUN AND FRIDAYS. ?HAVE LABS CHECKED 1-2 WEEKS BEFORE YOUR FOLLOW UP APPOINTMENT ?. ?2. Iron deficiency anemia, unspecified iron deficiency anemia type ? LAB: CREATININE ? LAB: FERRITIN [facility] Medical History (Updated 11/08/23 @ 12:28 by Andrew Bruno MD) COVID-19 vaccine series completed Bipolar disorder Chronic pain syndrome Disc degeneration, lumbar Spondylosis 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 Chronic constipation Deviated septum Emphysema lung Adenomatous colon polyp Acid reflux Surgical History History of esophagogastroduodenoscopy (EGD) Hx of colonoscopy Family History Father No problems noted. Mother No problems noted. Social History Household Members: Children Alcohol intake: never Patient Tobacco Use Status: Former Tobacco user Quit Date: 1 year Tobacco use type: Cigarette Current occupational status: unemployed Review of Systems Const All systems reviewed & are unremarkable except as noted in HPI and below Physical Exam Vital Signs: Last Vital Signs Pulse 61 08/10/23 09:23 BP 87/55 L 08/10/23 09:23 BMI result Body Mass Index 29.8 Const General: healthy appearing and no acute distress Nutritional Appearance: overweight Orientation/consciousness: patient oriented x3 Limitations: no limitations HEENT Head: Yes normal to inspection Ears: hearing grossly normal bilaterally Eyes Sclerae: sclerae normal Pupils: Equal, round and reactive pupils present Neck Neck: Yes normal visual inspection Chest Chest palpation & inspection: normal inspection of the chest Resp Effort & Inspection: normal respiratory effort Auscultation: clear to auscultation bilaterally Cardio Palpation: normal PMI Rate: regular rate Rhythm: regular rhythm Heart sounds: S1 normal heart sound present, S2 normal heart sound present and no murmurs GI Palpation (GI): Soft to palpation, nontender and No hepatosplenomegaly present Auscultation: normal bowel sounds Rectal Exam - Female: deferred Skin General skin exam: no rashes or lesions noted Neuro General: patient oriented x3, gait normal and moves all extremities Cranial nerves: Yes Equal, round and reactive pupils present Psych Appearance: grossly normal Mental Status: mental status grossly normal Assessment & Plan Assessment & Plan (1) Nausea: Code(s): R11.0 - Nausea Plan 58 YF with hypercholesterolemia, depressive disorder, hepatitis C - treated, vitamin D deficiency, slow transit constipation, chronic cough, smoker with history of GERD here for FU of GERD, ARACELY, constipation and weight loss. Aug, 2019 Pt did not have enough money to buy food and was giving food to her daughter and was staying hungry with weight loss. I suspect iron deficiency anemia is likely nutritional in etiology since stool hemoccults x 3 were negative in the past. Iron deficiency anemia has improved and she has regained some of the weight she lost. Patient complains fatigue and shortness of breath and continues to have a persistently low blood pressure. She was advised to increase her fluid intake with water and sports drinks 08/10/23 Complains of upper abd pain and radiates to the cervix and ovaries Pain is there 80% of the time usually between 5 to 7 in intensity Abd pain is worse when she is anxious Feels like a knot which gets tighter and tighter. Also has chronic back pain. Complains of nausea all the time - unable to puke Constipation is better - has a BM 2-3 times a day with loose BM Complains of upper abd pain and radiates to the cervix and ovaries Pain is there 80% of the time usually between 5 to 7 in intensity Abd pain is worse when she is anxious Feels like a knot which gets tighter and tighter. Also has chronic back pain. Complains of nausea all the time - unable to puke Constipation is better - has a BM 2-3 times a day with loose BM Pt was advised to schedule an EGD (Abd pain) and a colonoscopy (FU of colon polyps) Patient was prescribed dicyclomine for abdominal pain. FU in 3 months after EGD and Colon Medications: New dicyclomine 20 mg PO TID PRN 60 tabs 3RF abdominal pain 30 days R10.10 - Upper abdominal pain, unspecified Changed From ondansetron 4 mg PO Q8H 3 days 9 tabs 0RF R11.0 - Nausea To ondansetron 4 mg PO Q12H 40 tabs 1RF 30 days R11.0 - Nausea Refilled bisacodyl (Dulcolax (bisacodyl)) 10 mg KS DAILY PRN 20 ea 0RF constipation Coding Level of Care Code Est Pt Level 4 (03180) Diagnoses Nausea R11.0 Time Spent (min) 21
[2023-08-10 09:23] VITALS: BP 87/55; PULSE 61; BMI 29.8
== END 2023-08-10 10:30 | disposition home or self-care (01) ==
PROVIDERS: PCP Nurse Practitioner Primary Care; Visit Provider Internal Medicine Gastroenterology
DX: R11.0 Nausea (principal)
CPT/HCPCS: 99499

== ENCOUNTER 2023-09-06 09:42 | Day surgery (SDC) | payer MEDICAID, SELFPAY ==
--- NOTE | ~2023-09-06 | FL_ITS ---
EXAMINATION: XR FLUOROSCOPY WITH IMAGES CLINICAL INFORMATION: L4 sprint COMPARISON: None available. TECHNIQUE: Fluoroscopy Supervised By: Dr. Darren Marsh. Fluoroscopy Time: 0.2 minutes. Cumulative Dose: 3.63 mGy. DAP: 0.973 Gycm2. Images: 2. FINDINGS: Imaging guidance was utilized for a procedure. 2 images of the lower lumbar spine are available for review. These show localization at the right L4-L5 level and final image demonstrates a wire/presumed stimulator lead overlying the right aspect of L4-L5. FL/FL guidance in OR IMPRESSION: Imaging guidance for a procedure. Please refer to procedural report for further detail.
[2023-09-06 10:39] VITALS: BMI 30.8
--- NOTE | 2023-09-06 11:31 | MHC.SHP ---
Pre-Procedural Eval Section A Date of Service: 09/06/23 The patient is an INPATIENT: No Changes since office visit: Yes Patient answered all questions The History & Physical has been completed within 30 days and I have reviewed it.: No Section B Chief Complaint: Spondylosis without myelopathy or radiculopathy, Details of Present Illness: as above Relevant Family History (Specify if Yes): No Relevant Social History: None Present Medications: None Medical History: No relevant PMH History of Previous Operations: No relevant previous surgery Allergies: Allergies Allergy/AdvReac Type Severity Reaction Status Date / Time codeine Allergy Severe Anaphylaxis Verified 09/06/23 10:43 aspirin Allergy Mild Hives Verified 09/06/23 10:43 Penicillins [PENICILLINS] Allergy Mild HIVES Verified 09/06/23 10:43 Sulfa (Sulfonamide Allergy Mild Hives Verified 09/06/23 10:43 Antibiotics) sulfamethoxazole Allergy Mild inflamed Verified 08/10/23 09:18 [From Bactrim] hives, rash, trimethoprim [From Bactrim] Allergy Mild inflamed Verified 08/10/23 09:18 hives, rash, amoxicillin [AMOXICILLIN] Allergy Unknown HIVES Verified 08/10/23 09:18 citalopram [From Celexa] Allergy Hives Verified 09/06/23 10:44 lamotrigine [From Lamictal] Allergy Hives Verified 09/06/23 10:44 morphine AdvReac Mild Itching Verified 09/06/23 10:43 haloperidol [From Haldol] AdvReac Angioedema Verified 09/06/23 10:44 Review of Systems Sugical H&P ROS: Negative: Cardiovascular, Respiratory, Neurological, Psychiatric, Hem-Onc, Allergic/Immunologic, Gastrointestinal, Genitourinary, Musculoskeletal, Integumentary, Endocrine and Eyes/Ears/Nose/Throat and Yes, Specify: Constitution ( obesity) Exam Surgical H&P Exam: Normal: HEENT, Normal: Heart, Normal: Lungs, Normal: Extremities, Normal: Abdomen, Normal: Skin and Normal: Neurological Plan Diagnosis/Plan: Unchanged I have reviewed the history and physical and performed a pertinent physical examination on my patient. No changes have occurred unless specified. Time Spent With Patient Time: Total time managing care of this patient today ____ minutes.
[2023-09-06 12:25] VITALS: BP 107/65; PULSE 63; RESP 16; TEMP 36.6; O2SAT 96
--- NOTE | 2023-09-06 12:25 | P.BOP_ITS ---
Brief Operative Note Date of Service: 09/06/23 Pre-op diagnosis: spondylosis lumbar without myelopathy or radiculopathy. Post-op diagnosis: same Procedure: Sprint PNS right lumbar L5 Implants: none permanent Surgeon: Darren Marsh MD Anesthesia: local Was an Auto Haulaway Driver used for this Procedure?: No Estimated blood loss (mL): 0 Condition: stable Disposition: PACU
--- NOTE | 2023-09-06 12:28 | W.PM.OPN ---
Operative Note Operative Note Date of Service: 09/06/23 Narrative: Sprint PNS L5 right side After the risks, benefits and alternatives were discussed with the patient and informed consent was obtained, patient was placed in the prone position and padded to foster comfort. Time out was performed delineating correct site and side of the procedure , name and of the patient, patient participated in time out procedure. the lower back of the patient was prepped with ChloraPrep and draped with full body fenestrated drape. ?Sterily draped C-arm was brought over the operating field and clear picture of the lumbar spine was demonstrated on the screen. Right L5 lamina was chosen as the target of the tip of the needle position. Projection of the L4 lamina was chosen as the start of the needle advancement. That point was chosen as the local anesthetic infiltration point. After identifying and marking the intended target, the skin around the planned entry point and the subcutaneous tissues were injected with local anesthetic forming skin wheal.. ?A percutaneous sleeve and stimulating probe lead introduction system were assembled, inserted and advanced through the skin wheal to the? point of interest under C-arm view in oblique vision fashion, the introducer needle was delivered to a location in proximity to the multifidus muscles at the right lamina of L5. Multiple stimulation parameters were used to deliver stimulation to the? nerve in concert with stimulating at multiple positions around the nerve. 3 positions were tried: in the most medial point of the lamina most lateral poin of the lamina and one point in between of those two. The mid - position was given the most of the stimulation to the patient. Nerve target acquisition was confirmed noting generation of? in the? corresponding to the nerve being stimulated. Various electrical parameter combinations were tested, and the lead location was adjusted? until the patient indicated? overlapping the distribution of the patient?s typical region of pain. The stimulating probe was removed from the introducer and a percutaneous lead was guided through the needle and delivered to a location in similar proximity to the nerve. Final location was verified with electrical stimulation. The introducer needle was removed, and the exposed end of the percutaneous lead was attached to an external stimulator unit. Various electrical parameter combinations were again tested until the patient indicated paresthesia or muscle tension overlapping the distribution of the patient?s typical region of pain. After confirming that lead impedance was in the normal range, the external unit was detached, the needle was removed, and the lead was anchored at the skin. The lead was threaded into the connector block and electrical continuity and desired patient response was confirmed. The connector block was attached to the external stimulator unit. The site was covered with a sterile occlusive dressing and an? image was taken to document final placement. ?Upon completion of the procedure the patient was taken outside the OR where he recovered uneventfully she went home without immediate complications.
[2023-09-06 12:40] VITALS: BP 114/59; PULSE 72; RESP 16; O2SAT 96
== END 2023-09-06 13:07 | disposition home or self-care (01) ==
PROVIDERS: PCP Nurse Practitioner Primary Care; Visit Provider Anesthesiology
PROC: (CPT 64555; principal; 2023-09-06 11:30)
DX: M47.817 Spondylosis without myelopathy or radiculopathy, lumbosacral region (principal); G89.4 Chronic pain syndrome; M51.36 Other intervertebral disc degeneration, lumbar region; Z79.899 Other long term (current) drug therapy; Z88.0 Allergy status to penicillin; Z88.1 Allergy status to other antibiotic agents; Z88.2 Allergy status to sulfonamides; Z88.8 Allergy status to other drugs, medicaments and biological substances; F17.210 Nicotine dependence, cigarettes, uncomplicated
CPT/HCPCS: 64555; C1778; J2795

== ENCOUNTER → 2023-09-06 09:42 | Outpatient (BNV) | payer MEDICAID, SELFPAY | PROVIDERS: PCP Nurse Practitioner Primary Care; Visit Provider Anesthesiology | DX: M47.817 Spondylosis without myelopathy or radiculopathy, lumbosacral region (principal) | CPT/HCPCS: 64555 ==

== ENCOUNTER → 2023-09-12 14:04 | Outpatient (BNVA) | payer MEDICAID, SELFPAY | PROVIDERS: PCP Nurse Practitioner Primary Care; Visit Provider Anesthesiology | DX: G89.4 Chronic pain syndrome (principal); M47.817 Spondylosis without myelopathy or radiculopathy, lumbosacral region; M51.36 Other intervertebral disc degeneration, lumbar region | CPT/HCPCS: 99212 ==

== ENCOUNTER 2023-09-12 14:05 | Outpatient (AMB) | payer MEDICAID, SELFPAY ==
--- NOTE | 2023-09-12 14:07 | A.OFFVIS_ITS ---
Intake Vital Signs 09/12/23 14:19 Height 5 ft 5 in Weight 185 lb BMI 30.8 BP 118/78 Blood Pressure Location Rt brachial Position Sitting Respiration 14 Pulse 83 Pulse Source Pulse Oximeter Pulse Oximetry (%) 94 Oxygen Delivery Method Room Air Intake Visit Reasons: s/p Right L5 MB Sprint Intake Note: Patient comes in for post-op appointment S/P Right L5 MB Sprint. No redness/drng/swelling at site.?Site was cleaned with alcohol prep pad, and new dsd/tega applied. Reports pain 0/10. Allergies codeine Allergy (Severe, Verified 09/12/23 14:20) Anaphylaxis aspirin Allergy (Mild, Verified 09/12/23 14:20) Hives Penicillins [PENICILLINS] Allergy (Mild, Verified 09/12/23 14:20) HIVES Sulfa (Sulfonamide Antibiotics) Allergy (Mild, Verified 09/12/23 14:20) Hives sulfamethoxazole [From Bactrim] Allergy (Mild, Verified 09/12/23 14:20) inflamed hives, rash, trimethoprim [From Bactrim] Allergy (Mild, Verified 09/12/23 14:20) inflamed hives, rash, amoxicillin [AMOXICILLIN] Allergy (Unknown, Verified 09/12/23 14:20) HIVES citalopram [From Celexa] Allergy (Verified 09/12/23 14:20) Hives lamotrigine [From Lamictal] Allergy (Verified 09/12/23 14:20) Hives morphine Adverse Reaction (Mild, Verified 09/12/23 14:20) Itching haloperidol [From Haldol] Adverse Reaction (Verified 09/12/23 14:20) Angioedema HPI HPI Comments History of Present Illness Details Cherri is back in my office after a long period of absence. She received diagnostic medial branch block originally as below and after that she receives radiofrequency ablation. While medial branch block gave her 10 hours of profound pain relief, radiofrequency ablation resulted only in few weeks of pain improvement. After that we performed PNS stimulation for the patient juaquin crain On the left side. She reports today 0 pain. She reports excellent mobility, perfect activities of daily living, no problems with social interactions. Her dressing was changed today, no pathological discharge no redness in the insertion of the electrode. Patient is very happy about her device. She asked me for how long after the removal of the device Prior: bilateral L3-L4 L5 radiofrequency ablation on 09/13/2021. She reports that pain in the back is very strong. She reported that pain relief lasted no more than few weeks. She reports that pain now is back and is stronger than it was before the radiofrequency ablation. Before radiofrequency ablation she received diagnostic medial branch block which provided 95% pain improvement for the 10 hours after the procedure. She was offered to come on or after February [id number] we will not be able to perform any procedures to address her lower back pain. complains on pain in lower back.? She also complains on pain in the shoulders a nd neck and lower back pain and pain going down to the left lower extremity she reports that this problem started in 2017 she reports that her problem comes from degenerative disc disease of lumbar spine.?physical therapy 1 year ago chiropractic manipulations 1 year ago were absolutely useless for her pain.? She had 4 months of continues physical therapy and chiropractic manipulation she reports no? pain relief whatsoever. MRI of lumbar spine dictation available as below. She went for bilateral L3-L4 dorsal ramus L5 medial branch block diagnostic.? She received bupivacaine at each of the locations no more than 1 cc.? She reports today 9-10 hours of 85% pain relief post injection.? After that pain gradually went up.? [facility] Medical History Acid reflux Adenomatous colon polyp Bipolar disorder Chronic constipation Chronic pain syndrome COVID-19 vaccine series completed Deviated septum Disc degeneration, lumbar Emphysema lung Spondylosis 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 Surgical History History of esophagogastroduodenoscopy (EGD) Hx of colonoscopy Family History Father No problems noted. Mother No problems noted. Social History Household Members: Children Alcohol intake: never Patient Tobacco Use Status: Current everyday Tobacco user Tobacco use type: Cigarette Current occupational status: unemployed Review of Systems Const All systems reviewed & are unremarkable except as noted in HPI and below Physical Exam Vital Signs: Last Vital Signs Pulse 83 09/12/23 14:19 Resp 14 09/12/23 14:19 BP 118/78 09/12/23 14:19 Pulse Ox 94 09/12/23 14:19 Oxygen Delivery Method Room Air 09/12/23 14:19 BMI result Body Mass Index 30.8 Const General: cooperative, comfortable, no acute distress, well developed, alert and awake Eyes Pupils: Equal, round and reactive pupils present EOM: EOMs intact bilaterally Resp Effort & Inspection: normal respiratory effort, able to speak in complete sentences, normal respiratory pattern, no audible wheezes and no cough Cardio Jugular venous distension: no JVD Back/Spine/Pelvis Other: Able to stand on bilateral tiptoes in bilateral heels demonstrating normal strength of bilateral lower extremities. Flexing forward alleviates her pain. Flexing backwards aggravates her pain. Flexing sideways aggravates her pain. Loading test aggravates her pain. SLR does not increase her pain bilaterally. Slump test is negative bilateral. Naif test is negative bilaterally. Denies incontinence with urine and/or stool denies urinary retention denies Valsalva maneuver positive for pain increase. Neuro Cranial nerves: Yes Equal, round and reactive pupils present Assessment & Plan Assessment & Plan (1) Spondylosis 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: Code(s): M47.817 - Spondylosis without myelopathy or radiculopathy, lumbosacral region (2) Disc degeneration, lumbar: Code(s): M51.36 - Other intervertebral disc degeneration, lumbar region (3) Chronic pain syndrome: Comment: Abdominal pain, wanders, reviewed CT an u/s Physical exam abdomen soft, Code(s): G89.4 - Chronic pain syndrome Plan Good results of medial branch block bilateral unfortunately did not cast into good results of radiofrequency ablation. She reported minimal pain improvement and she reported pain exacerbation after the procedure. Insertion of the sprint PNS was performed with excellent results as above. I will see the patient as needed in the future. I will see her again in the office after the removal of the PNS sprint. Longevity of pain relief after sprint PNS removal was discussed, I told her that the patient could experience pain relief from 6-8 months after the removal of the procedure. Coding Level of Care Code Est Pt Level 3 (06495) Diagnoses Spondylosis 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 M47.817 Disc degeneration, lumbar M51.36 Chronic pain syndrome G89.4
[2023-09-12 14:19] VITALS: BP 118/78; PULSE 83; RESP 14; O2SAT 94; BMI 30.8
== END 2023-09-12 14:41 | disposition home or self-care (01) ==
PROVIDERS: PCP Nurse Practitioner Primary Care; Referring Provider Nurse Practitioner Primary Care; Visit Provider Anesthesiology
DX: M47.817 Spondylosis without myelopathy or radiculopathy, lumbosacral region (principal); M51.36 Other intervertebral disc degeneration, lumbar region; G89.4 Chronic pain syndrome
CPT/HCPCS: 99024

== ENCOUNTER 2023-09-20 12:17 | Day surgery (SDC) | payer MEDICAID, SELFPAY ==
--- NOTE | ~2023-09-20 | FL_ITS ---
EXAMINATION: XR FLUOROSCOPY WITH IMAGES CLINICAL INFORMATION: L4, L5 medial branch peripheral nerve stimulator COMPARISON: 09/06/2023 TECHNIQUE: Fluoroscopy Supervised By: Dr. Marsh. Fluoroscopy Time: 0.3 min. Cumulative Dose: 7.76 mGy. DAP: 2.06 Gycm2. Images: 2 FL/FL guidance in OR FINDINGS AND IMPRESSION: The primary purpose of this report is to document use of fluoroscopic equipment during a lumbar procedure in which a peripheral nerve stimulator was placed. The images are focused on the L4-L5 level. Please refer to the procedure report.
[2023-09-20 12:55] VITALS: BMI 31.0
[2023-09-20 13:06] VITALS: BP 119/56; PULSE 75; RESP 16; TEMP 35.9; O2SAT 95
--- NOTE | 2023-09-20 14:14 | MHC.SHP ---
Pre-Procedural Eval Section A Date of Service: 09/20/23 The patient is an INPATIENT: No Changes since office visit: Yes Patient answered all questions The History & Physical has been completed within 30 days and I have reviewed it.: No Section B Chief Complaint: Spondylosis without myelopathy or radiculopathy, l Details of Present Illness: As above Relevant Family History (Specify if Yes): No Relevant Social History: None Present Medications: None Medical History: No relevant PMH History of Previous Operations: No relevant previous surgery Allergies: Allergies Allergy/AdvReac Type Severity Reaction Status Date / Time codeine Allergy Severe Anaphylaxis Verified 09/20/23 12:59 aspirin Allergy Mild Hives Verified 09/20/23 12:59 Penicillins [PENICILLINS] Allergy Mild HIVES Verified 09/20/23 12:59 Sulfa (Sulfonamide Allergy Mild Hives Verified 09/20/23 12:59 Antibiotics) sulfamethoxazole Allergy Mild inflamed Verified 09/20/23 12:59 [From Bactrim] hives, rash, trimethoprim [From Bactrim] Allergy Mild inflamed Verified 09/20/23 12:59 hives, rash, amoxicillin [AMOXICILLIN] Allergy Unknown HIVES Verified 09/20/23 12:59 citalopram [From Celexa] Allergy Hives Verified 09/20/23 12:59 lamotrigine [From Lamictal] Allergy Hives Verified 09/20/23 12:59 morphine AdvReac Mild Itching Verified 09/20/23 12:59 haloperidol [From Haldol] AdvReac Angioedema Verified 09/12/23 14:20 Review of Systems Sugical H&P ROS: Negative: Constitution, Cardiovascular, Respiratory, Neurological, Psychiatric, Hem-Onc, Allergic/Immunologic, Gastrointestinal, Genitourinary, Musculoskeletal, Integumentary, Endocrine and Eyes/Ears/Nose/Throat Exam Surgical H&P Exam: Normal: HEENT, Normal: Heart, Normal: Lungs, Normal: Extremities, Normal: Abdomen, Normal: Skin and Normal: Neurological Plan Diagnosis/Plan: Unchanged I have reviewed the history and physical and performed a pertinent physical examination on my patient. No changes have occurred unless specified. Time Spent With Patient Time: Total time managing care of this patient today ____ minutes.
--- NOTE | 2023-09-20 14:50 | W.PM.OPN ---
Operative Note Operative Note Date of Service: 09/20/23 Narrative: Sprint PNS L5 left side After the risks, benefits and alternatives were discussed with the patient and informed consent was obtained, patient was placed in the prone position and padded to foster comfort. Time out was performed delineating correct site and side of the procedure , name and of the patient, patient participated in time out procedure. the lower back of the patient was prepped with ChloraPrep and draped with full body fenestrated drape. ?Sterily draped C-arm was brought over the operating field and clear picture of the lumbar spine was demonstrated on the screen. Left L5 lamina was chosen as the target of the tip of the needle position. Projection of the L4 lamina was chosen as the start of the needle advancement. That point was chosen as the local anesthetic infiltration point. After identifying and marking the intended target, the skin around the planned entry point and the subcutaneous tissues were injected with local anesthetic forming skin wheal.. ?A percutaneous sleeve and stimulating probe lead introduction system were assembled, inserted and advanced through the skin wheal to the? point of interest under C-arm view in oblique vision fashion, the introducer needle was delivered to a location in proximity to the multifidus muscles at the left lamina of L5. Multiple stimulation parameters were used to deliver stimulation to the? nerve in concert with stimulating at multiple positions around the nerve. 3 positions were tried: in the most medial point of the lamina most lateral poin of the lamina and one point in between of those two. The mid - position was given the most of the stimulation to the patient. Nerve target acquisition was confirmed noting generation of? in the? corresponding to the nerve being stimulated. Various electrical parameter combinations were tested, and the lead location was adjusted? until the patient indicated? overlapping the distribution of the patient?s typical region of pain. The stimulating probe was removed from the introducer and a percutaneous lead was guided through the needle and delivered to a location in similar proximity to the nerve. Final location was verified with electrical stimulation. The introducer needle was removed, and the exposed end of the percutaneous lead was attached to an external stimulator unit. Various electrical parameter combinations were again tested until the patient indicated paresthesia or muscle tension overlapping the distribution of the patient?s typical region of pain. After confirming that lead impedance was in the normal range, the external unit was detached, the needle was removed, and the lead was anchored at the skin. The lead was threaded into the connector block and electrical continuity and desired patient response was confirmed. The connector block was attached to the external stimulator unit. The site was covered with a sterile occlusive dressing and an? image was taken to document final placement. ?Upon completion of the procedure the patient was taken outside the OR where he recovered uneventfully she went home without immediate complications.
--- NOTE | 2023-09-20 15:40 | P.BOP_ITS ---
Brief Operative Note Date of Service: 09/20/23 Pre-op diagnosis: Spondylosis lumbar Post-op diagnosis: same Procedure: Completion of the procedure insertion of the sprint PNS bilateral L5 Implants: None permanent Surgeon: Darren Marsh MD Was an Gas Roller Operator used for this Procedure?: No Estimated blood loss (mL): 1 Condition: stable Disposition: PACU
[2023-09-20 15:42] VITALS: BP 120/77; PULSE 80; RESP 18; TEMP 36.2; O2SAT 97
== END 2023-09-20 16:11 | disposition home or self-care (01) ==
PROVIDERS: PCP Nurse Practitioner Primary Care; Visit Provider Anesthesiology
PROC: (CPT 64555; principal; 2023-09-20 13:50)
DX: M47.816 Spondylosis without myelopathy or radiculopathy, lumbar region (principal); G89.4 Chronic pain syndrome; M51.36 Other intervertebral disc degeneration, lumbar region; J43.9 Emphysema, unspecified; F17.210 Nicotine dependence, cigarettes, uncomplicated; Z88.0 Allergy status to penicillin; Z88.1 Allergy status to other antibiotic agents; Z88.2 Allergy status to sulfonamides; Z88.5 Allergy status to narcotic agent; Z88.8 Allergy status to other drugs, medicaments and biological substances
CPT/HCPCS: 64555; C1778; J2795

== ENCOUNTER → 2023-09-20 12:17 | Outpatient (BNV) | payer MEDICAID, SELFPAY | PROVIDERS: PCP Nurse Practitioner Primary Care; Visit Provider Anesthesiology | DX: M47.816 Spondylosis without myelopathy or radiculopathy, lumbar region (principal) | CPT/HCPCS: 64555 ==

== ENCOUNTER 2023-09-26 13:09 | Outpatient (AMB) | payer MEDICAID, SELFPAY ==
--- NOTE | 2023-09-26 13:11 | MHC.OFFVIS ---
Intake Vital Signs 09/26/23 13:25 Height 5 ft 5 in Weight 186 lb BMI 30.9 BP 110/62 Blood Pressure Location Lt brachial Position Sitting Respiration 16 Pulse 79 Pulse Source Pulse Oximeter Pulse Oximetry (%) 99 Oxygen Delivery Method Room Air Intake Visit Reasons: s/p Left L5 MB Sprint - Confirmed Intake Note: Patient comes in for sprint PNS bilateral L5 dressing change. No redness/drainage/swelling at site.?Site cleaned with alcohol prep pad, and new dsd/tega applied. Reports pain 6/10. Allergies codeine Allergy (Severe, Verified 09/26/23 13:24) Anaphylaxis aspirin Allergy (Mild, Verified 09/26/23 13:24) Hives Penicillins [PENICILLINS] Allergy (Mild, Verified 09/26/23 13:24) HIVES Sulfa (Sulfonamide Antibiotics) Allergy (Mild, Verified 09/26/23 13:24) Hives sulfamethoxazole [From Bactrim] Allergy (Mild, Verified 09/26/23 13:24) inflamed hives, rash, trimethoprim [From Bactrim] Allergy (Mild, Verified 09/26/23 13:24) inflamed hives, rash, amoxicillin [AMOXICILLIN] Allergy (Unknown, Verified 09/26/23 13:24) HIVES citalopram [From Celexa] Allergy (Verified 09/26/23 13:24) Hives lamotrigine [From Lamictal] Allergy (Verified 09/26/23 13:24) Hives morphine Adverse Reaction (Mild, Verified 09/26/23 13:24) Itching haloperidol [From Haldol] Adverse Reaction (Verified 09/26/23 13:24) Angioedema HPI HPI Comments History of Present Illness Details Cherri is back in my office after insertion of the sprint PNS. She reports some pain relief on this device. She reports that the device reduces her pain to about 40%. She denies any better pain improvement. I explained to her that possibility exists that with longer carrying of the device for pain relief will be better. Her level of stimulation is at high 80s I am not sure if it is possible to increase the stimulation level. She is getting into contact with sprint representatives who direct her in navigating her stimulation. I will see this patient upon completion of the stimulation 60 days time interval. We will see if this procedure is helping her at all. Follow-up appointment for dressing change will be scheduled as a nursing appointment Her dressing was changed today, no pathological discharge no redness in the insertion of the electrode. Patient is very happy about her device. She asked me for how long after the removal of the device Prior: bilateral L3-L4 L5 radiofrequency ablation on 09/13/2021. She reports that pain in the back is very strong. She reported that pain relief lasted no more than few weeks. She reports that pain now is back and is stronger than it was before the radiofrequency ablation. Before radiofrequency ablation she received diagnostic medial branch block which provided 95% pain improvement for the 10 hours after the procedure. She was offered to come on or after February [id number] we will not be able to perform any procedures to address her lower back pain. complains on pain in lower back.? She also complains on pain in the shoulders and neck and lower back pain and pain going down to the left lower extremity she reports that this problem started in 2017 she reports that her problem comes from degenerative disc disease of lumbar spine.?physical therapy 1 year ago chiropractic manipulations 1 year ago were absolutely useless for her pain.? She had 4 months of continues physical therapy and chiropractic manipulation she reports no? pain relief whatsoever. MRI of lumbar spine dictation available as below. She went for bilateral L3-L4 dorsal ramus L5 medial branch block diagnostic.? She received bupivacaine at each of the locations no more than 1 cc.? She reports today 9-10 hours of 85% pain relief post injection.? After that pain gradually went up.? [facility] Medical History Acid reflux Adenomatous colon polyp Bipolar disorder Chronic constipation Chronic pain syndrome COVID-19 vaccine series completed Deviated septum Disc degeneration, lumbar Emphysema lung Spondylosis 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 Surgical History History of esophagogastroduodenoscopy (EGD) Hx of colonoscopy Family History Father No problems noted. Mother No problems noted. Social History Household Members: Children Alcohol intake: never Patient Tobacco Use Status: Current everyday Tobacco user Tobacco use type: Cigarette Current occupational status: unemployed Review of Systems Const All systems reviewed & are unremarkable except as noted in HPI and below Physical Exam Vital Signs: Last Vital Signs Pulse 79 09/26/23 13:25 Resp 16 09/26/23 13:25 BP 110/62 09/26/23 13:25 Pulse Ox 99 09/26/23 13:25 Oxygen Delivery Method Room Air 09/26/23 13:25 BMI result Body Mass Index 30.9 Const General: cooperative, comfortable, no acute distress, well developed, alert and awake Eyes Pupils: Equal, round and reactive pupils present EOM: EOMs intact bilaterally Resp Effort & Inspection: normal respiratory effort, able to speak in complete sentences, normal respiratory pattern, no audible wheezes and no cough Cardio Jugular venous distension: no JVD Back/Spine/Pelvis Other: Able to stand on bilateral tiptoes in bilateral heels demonstrating normal strength of bilateral lower extremities. Flexing forward alleviates her pain. Flexing backwards aggravates her pain. Flexing sideways aggravates her pain. Loading test aggravates her pain. SLR does not increase her pain bilaterally. Slump test is negative bilateral. Naif test is negative bilaterally. Denies incontinence with urine and/or stool denies urinary retention denies Valsalva maneuver positive for pain increase. Neuro Cranial nerves: Yes Equal, round and reactive pupils present Results Reviewed Results Reviewed: MRI of the lumbar spine 11/19/2020 vertebral bodies and paraspinal structures: Normal vertebral body alignment lumbar loud will doses is maintained. No acute fracture or subluxation. No loss of vertebral body height. Mild loss of intervertebral disc height of the L3-L4. More severe loss of intervertebral disc height at L5-S1 with minimal Modic type degenerative endplate changes. Posterior vertebral body hemangioma within the L1. No acute abnormal marrow signal. Small multiple appearing bilateral renal cysts. The visualized paraspinal soft tissues are otherwise unremarkable. Spinal levels: R20-S5-P9-L4 L2-L3 all: No significant disc bulge no central canal stenosis or neural foraminal stenosis. L3-L4: Shallow broad-based disc bulge with with superimposed right foraminal disc protrusion and annular fissuring without contacting the exiting right L3 nerve root. Bilateral facet arthropathy and thickening of the ligamentum flavum with moderate right and mild left neural foraminal stenosis. L4-5: Shallow broad-based disc bulge slightly a symmetric to the left. Bilateral facet arthropathy and thickening of the ligamentum flavum with mild to moderate bilateral neural foraminal stenosis. L5-S1 broad-based disc osteophyte complex a symmetric to the right bilateral facet arthropathy with mild bilateral neural foraminal stenosis. Assessment & Plan Assessment & Plan (1) Spondylosis 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: Code(s): M47.817 - Spondylosis without myelopathy or radiculopathy, lumbosacral region (2) Disc degeneration, lumbar: Code(s): M51.36 - Other intervertebral disc degeneration, lumbar region (3) Chronic pain syndrome: Comment: Abdominal pain, wanders, reviewed CT an u/s Physical exam abdomen soft, Code(s): G89.4 - Chronic pain syndrome Plan Good results of medial branch block bilateral unfortunately did not cast into good results of radiofrequency ablation. She reported minimal pain improvement and she reported pain exacerbation after the procedure. Insertion of the sprint PNS was performed with initial excellent results however now patient reports that her pain is getting stronger and the device reduces her pain only by 40%. On the MRI performed on 2020 she has L5-S1 Modic type changes. If the stimulation is not satisfactory for her repeat of the MRI and Intrasept procedure will be considered. Nursing visits dressing change until the 60 day period completed. Follow-up with me upon completion of this time interval. Patient Instructions: I here by testify that I spent 35 minutes in conversation with this patient, evaluation of prior records, evaluation of prior diagnostic tests and organizing this note. Coding Level of Care Code Est Pt Level 4 (59059) Diagnoses Spondylosis 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 M47.817 Disc degeneration, lumbar M51.36 Chronic pain syndrome G89.4
[2023-09-26 13:25] VITALS: BP 110/62; PULSE 79; RESP 16; O2SAT 99; BMI 30.9
== END 2023-09-26 13:26 | disposition home or self-care (01) ==
PROVIDERS: PCP Nurse Practitioner Primary Care; Visit Provider Anesthesiology
DX: M47.817 Spondylosis without myelopathy or radiculopathy, lumbosacral region (principal); M51.36 Other intervertebral disc degeneration, lumbar region; G89.4 Chronic pain syndrome
CPT/HCPCS: 99024

== ENCOUNTER → 2023-09-26 13:09 | Outpatient (BNVA) | payer MEDICAID, SELFPAY | PROVIDERS: PCP Nurse Practitioner Primary Care; Visit Provider Anesthesiology | DX: G89.4 Chronic pain syndrome (principal); M47.817 Spondylosis without myelopathy or radiculopathy, lumbosacral region; M51.36 Other intervertebral disc degeneration, lumbar region | CPT/HCPCS: 99212 ==

== ENCOUNTER 2023-10-17 09:15 | Day surgery (SDC) | payer MEDICAID, SELFPAY ==
[2023-10-12 14:23] VITALS: BMI 29.8
[2023-10-17 09:36] VITALS: BMI 30.9
[2023-10-17 09:39] VITALS: BP 107/65; PULSE 80; RESP 18; TEMP 36.3; O2SAT 96
--- NOTE | 2023-10-17 10:08 | P.CONAN_ITS ---
HPI - Anesthesia Eval Consult details Narrative: 58 yo female patient for EGD, Colonoscopy. Chronic pain patient on suboxone. None for 2 days PMFSH Active Problems Active Problems: All Active Problems (Updated 10/17/23 @ 10:07 by Mercedes Park MD) Nausea (Acute) Abnormal CT of the abdomen (Acute) FILIPE (obstructive sleep apnea) (Acute) Abdominal pain (Acute) Carotid artery stenosis (Acute) Precordial chest pain (Acute) SOB (shortness of breath) (Acute) COPD with acute exacerbation (Acute) Pulmonary nodules (Acute) Tubular adenoma (Acute) Depression (Acute) Hypergammaglobulinemia (Chronic) COPD (chronic obstructive pulmonary disease) (Acute) Dyspnea on exertion (Acute) Chronic pain syndrome (Acute). PNS in situ Disc degeneration, lumbar (Acute) Spondylosis 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 (Acute) Chronic constipation (Acute) Deviated septum (Acute) Emphysema lung (Acute) Acid reflux (Acute) Voice raspy. Patient states always like that. Past Medical History Medical History COVID-19 vaccine series completed Bipolar disorder Chronic pain syndrome Disc degeneration, lumbar Spondylosis 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 Chronic constipation Deviated septum Emphysema lung Adenomatous colon polyp Acid reflux Family History Family History Father No problems noted. Mother No problems noted. Family history of problems with anesthesia: No Surgical History Surgical History History of esophagogastroduodenoscopy (EGD) Hx of colonoscopy History of Problems with Anesthesia: No Social History Social History Household Members: Children Alcohol intake: never Patient Tobacco Use Status: Former Tobacco user Quit Date: 1 year Tobacco use type: Cigarette Current occupational status: unemployed Meds Allergies Allergy/AdvReac Type Severity Reaction Status Date / Time codeine Allergy Severe Anaphylaxis Verified 09/26/23 13:24 aspirin Allergy Mild Hives Verified 09/26/23 13:24 Penicillins [PENICILLINS] Allergy Mild HIVES Verified 09/26/23 13:24 Sulfa (Sulfonamide Allergy Mild Hives Verified 09/26/23 13:24 Antibiotics) sulfamethoxazole Allergy Mild inflamed Verified 09/26/23 13:24 [From Bactrim] hives, rash, trimethoprim [From Bactrim] Allergy Mild inflamed Verified 09/26/23 13:24 hives, rash, amoxicillin [AMOXICILLIN] Allergy Unknown HIVES Verified 09/26/23 13:24 citalopram [From Celexa] Allergy Hives Verified 09/26/23 13:24 lamotrigine [From Lamictal] Allergy Hives Verified 09/26/23 13:24 morphine AdvReac Mild Itching Verified 09/26/23 13:24 haloperidol [From Haldol] AdvReac Angioedema Verified 09/26/23 13:24 Home Medications Medication Instructions Recorded Confirmed Last Taken Type clonazepam 2 mg tablet (Klonopin) 2 mg PO TID 01/31/21 08/10/23 07/06/21 History ergocalciferol (vitamin D2) 1,250 1,250 mcg PO QWEEK 01/31/21 08/10/23 07/06/21 History mcg (50,000 unit) capsule (Drisdol) folic acid 1 mg tablet 1 mg PO DAILY 01/31/21 08/10/23 07/06/21 History ziprasidone HCl 80 mg capsule 80 mg PO BID 01/31/21 08/10/23 07/06/21 History (Geodon) zolpidem 10 mg tablet (Ambien) 10 mg PO BEDTIME PRN Sleep 01/31/21 08/10/23 07/06/21 History clonidine HCl 0.1 mg tablet 3 tab PO BEDTIME insomnia 07/07/21 08/10/23 07/06/21 History dextroamphetamine-amphetamine 20 20 mg PO DAILY@1400 07/07/21 08/10/23 07/06/21 History mg tablet dextroamphetamine-amphetamine ER 30 mg PO DAILY 07/07/21 08/10/23 07/06/21 History 30 mg 24hr capsule,extend release (Adderall XR) sertraline 100 mg tablet 2 tab PO QAM 07/07/21 08/10/23 07/06/21 History buprenorphine 12 mg-naloxone 3 mg 30 mg sublingual DAILY 12/28/21 08/10/23 Unknown History sublingual film (Suboxone) docusate sodium 100 mg capsule 100 mg PO 02/28/23 08/10/23 Unknown History metoprolol tartrate 25 mg tablet 12.5 mg PO 02/28/23 08/10/23 Unknown History omeprazole 40 mg capsule,delayed 40 mg PO 02/28/23 08/10/23 Unknown History release rosuvastatin 10 mg tablet 10 mg PO QAM 02/28/23 08/10/23 Unknown History verapamil 120 mg 24 hr 120 mg PO QPM 02/28/23 08/10/23 Unknown History capsule,extended release Exam Height,Weight and Vital Signs: Height 5 ft 5 in Weight 84.368 kg Last Vital Signs Temp 97.4 F 10/17/23 09:39 Pulse 80 10/17/23 09:39 Resp 18 10/17/23 09:39 BP 107/65 10/17/23 09:39 Pulse Ox 96 10/17/23 09:39 O2 Del Method Room Air 10/17/23 09:39 Airway Mallampati Class: II TM Dist: >3cm Neck ROM: Full Loose/Missing/Broken Teeth: Yes (Edentulous. ) Heart: RRR Lungs: ? Inspiratory stridor anteriorly. Expiratory wheezes posteriorly. Breath sounds diminished. 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
--- NOTE | 2023-10-17 10:10 | MHC.SHP ---
Pre-Procedural Eval Section A - 24 Hr Update-Section A only Date of Service: 10/17/23 Section B - Complete if H&P > 30 days Chief Complaint: Unspecified abdominal pain Details of Present Illness: hx of colon polyps Relevant Family History (Specify if Yes): No Relevant Social History: Tobacco Use Present Medications: see Short Stay Collaborative assessment Medical History: Significant History (Acid reflux Adenomatous colon polyp Bipolar disorder Chronic constipation Chronic pain syndrome COVID-19 vaccine series completed Deviated septum Disc degeneration, lumbar Emphysema lung Spondylosis 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) History of Previous Operations: Relevant previous surgery/procedure and date(s) (History of esophagogastroduodenoscopy (EGD) Hx of colonoscopy) Allergies: Allergies Allergy/AdvReac Type Severity Reaction Status Date / Time codeine Allergy Severe Anaphylaxis Verified 09/26/23 13:24 aspirin Allergy Mild Hives Verified 09/26/23 13:24 Penicillins [PENICILLINS] Allergy Mild HIVES Verified 09/26/23 13:24 Sulfa (Sulfonamide Allergy Mild Hives Verified 09/26/23 13:24 Antibiotics) sulfamethoxazole Allergy Mild inflamed Verified 09/26/23 13:24 [From Bactrim] hives, rash, trimethoprim [From Bactrim] Allergy Mild inflamed Verified 09/26/23 13:24 hives, rash, amoxicillin [AMOXICILLIN] Allergy Unknown HIVES Verified 09/26/23 13:24 citalopram [From Celexa] Allergy Hives Verified 09/26/23 13:24 lamotrigine [From Lamictal] Allergy Hives Verified 09/26/23 13:24 morphine AdvReac Mild Itching Verified 09/26/23 13:24 haloperidol [From Haldol] AdvReac Angioedema Verified 09/26/23 13:24 Review of Systems Sugical H&P ROS: Negative: Constitution, Cardiovascular, Respiratory, Neurological, Psychiatric, Hem-Onc, Allergic/Immunologic, Gastrointestinal, Genitourinary, Musculoskeletal, Integumentary, Endocrine and Eyes/Ears/Nose/Throat Exam Surgical H&P Exam: Normal: HEENT, Normal: Heart, Normal: Lungs, Normal: Extremities, Normal: Abdomen, Normal: Skin and Normal: Neurological Plan Diagnosis/Plan: Unchanged I have reviewed the history and physical and performed a pertinent physical examination on my patient. No changes have occurred unless specified. EGD and colo for abdominal pain and hx of polyps Time Spent With Patient Time: Total time managing care of this patient today ____ minutes.
--- NOTE | 2023-10-17 10:12 | P.OP_ITS ---
Operative Note Operative Note Date of Service: 10/17/23 Narrative: Operative Information Procedure Description: EGD, Colonoscopy Indication: abdominal pain Anesthesia: MAC FLEXIBLE TRANSORAL UPPER GASTROINTESTINAL ENDOSCOPY AND COLONOSCOPY PROCEDURE NOTE UPPER ENDOSCOPY Consent: Indications for the procedure and potential complications of bleeding, perforation, reaction to medications and missed diagnosis were discussed with the patient and informed consent was obtained. Instrument: Olympus GIF H 190 J mid size upper endoscope Monitoring: Vital signs and clinical assessment, continuous EKG monitoring, Pulse oximetry, Carbon Dioxide monitoring and blood pressure monitoring were done throughout the procedure. Procedure: The patient was placed in the left lateral decubitis position and pre-procedure medications were administered and a bite block was placed. The endoscope was inserted into the mouth and advanced under direct vision to the third part of duodenum. A careful inspection was made as the upper endoscope was withdrawn including a retroflexed examination of the proximal stomach; Findings and interventions are described below. Findings: Larynx:normal Esophagus: GE junction at 40 cm, diaphragm hiatus at 40 cm, normal mucosa Stomach: Patchy erythema and granularity. Biopsies were obtained. Grade 2 flap valve on retroflexed examination of the cardia. Reduced movement noted, possible gastroparesis. Duodenum: Normal bulb and descending duodenum, bx taken Intervention: Biopsies as noted above COLONOSCOPY Instrument: Olympus variable stiffness pediatric scope 190L Colonoscopy Monitoring: Vital signs and clinical assessment, continuous EKG monitoring, Pulse oximetry, Carbon Dioxide monitoring and blood pressure monitoring were done throughout the procedure. Colon withdrawal time was 8 minutes. Procedure: The patient was placed in the left lateral decubitis position and pre-procedure medications were administered. After a digital rectal examination of the ano-rectum, the video colonoscope was inserted into the rectum and advanced through the colon to the cecum/TI. The colonoscope was slowly withdrawn in a retrograde panoramic fashion and the colon mucosa was carefully examined including a retroflexed view of the rectum. Findings and interventions are described below. Procedure Difficulty:easy Findings: Poor prep- melanosis coli noted in few areas Terminal Ileum-not seen Cecum:not seen Ascending Colon: normal Transverse Colon -normal Descending Colon:normal Sigmoid Colon: normal Rectum: Retroflexion not done due to poor prep, no lesions seen Anorectum - normal Colon preparation: [place]burn Bowel Preparation Scale Right colon; 0 Transverse colon: 1 Left colon; 0 (0 = Unprepared colon segment with mucosa not seen due to solid stool that cannot be cleared. 1 = Portion of mucosa of the colon segment seen, but other areas of the colon segment not well seen due to staining, residual stool and/or opaque liquid. 2 = Minor amount of residual staining, small fragments of stool and/or opaque liquid, but mucosa of colon segment seen well. 3 = Entire mucosa of colon segment seen well with no residual staining, small fragments of stool or opaque liquid) Impression and Post Procedure Diagnosis: Endoscopy Findings: gastritis possible gastroparesis, 2/2 meds Colonoscopy Findings: melanosis coli poor prep Plan: Await Pathology results Repeat Colonoscopy in few months with compliance with prep or 2 d of clears Above findings were reviewed with the patient and relevant handouts were provided if indicated.
[2023-10-17] MEDS: Albuterol Sulfate (0.083%) 2.5 MG/3 ML VIAL.NEB INHALE (10:29)
[2023-10-17 10:30] VITALS: PULSE 76; RESP 16; O2SAT 96
[2023-10-17] MEDS: Lactated Ringers 1,000 ML 100 ML IVCONT (10:43)
[2023-10-17 11:59] VITALS: BP 89/50; PULSE 84; RESP 16; TEMP 36.1; O2SAT 95
[2023-10-17 12:14] VITALS: BP 104/66; PULSE 82; RESP 16; O2SAT 95
[2023-10-17 12:29] VITALS: BP 105/58; PULSE 82; RESP 16; TEMP 36.1; O2SAT 95
== END 2023-10-17 13:21 | disposition home or self-care (01) ==
PROVIDERS: PCP Nurse Practitioner Primary Care; Visit Provider Internal Medicine Gastroenterology
PROC: (CPT 43239; principal; 2023-10-17 11:30)
DX: K29.60 Other gastritis without bleeding (principal); K21.9 Gastro-esophageal reflux disease without esophagitis; K63.89 Other specified diseases of intestine; K59.09 Other constipation
CPT/HCPCS: 43239; 45378; 88305; 88313; 88342; 94640; J1596; J2704

== ENCOUNTER → 2023-10-17 09:15 | Outpatient (BNV) | payer MEDICAID, SELFPAY | PROVIDERS: PCP Nurse Practitioner Primary Care; Visit Provider Internal Medicine Gastroenterology | DX: K29.70 Gastritis, unspecified, without bleeding (principal); K31.84 Gastroparesis; K63.89 Other specified diseases of intestine | CPT/HCPCS: 43239; 45378 ==

== ENCOUNTER → 2023-10-19 13:50 | Outpatient (BNVA) | payer MEDICAID, SELFPAY | PROVIDERS: PCP Nurse Practitioner Primary Care; Visit Provider Anesthesiology ==

== ENCOUNTER 2023-11-08 11:43 | Outpatient (AMB) | payer MEDICAID, SELFPAY ==
--- NOTE | 2023-11-08 11:52 | A.OFFVIS_ITS ---
Intake Vital Signs 11/08/23 11:53 Height 5 ft 5 in Weight 186 lb BMI 30.9 BP 87/51 L Blood Pressure Location Lt brachial Position Sitting Pulse 74 Intake Visit Reasons: follow up from procedure Intake Note: Patient follow up fro EGD/Colonoscopy results. Patient cc: nauseas, abdominal pain with bloating, hard time to swallow food, heartburn with burning sensation, constipation, no appetite, dizziness. Cream Separator Operator Required: No Accompanied by: Self / Same As Patient Allergies codeine Allergy (Severe, Verified 11/08/23 11:51) Anaphylaxis aspirin Allergy (Mild, Verified 11/08/23 11:51) Hives Penicillins [PENICILLINS] Allergy (Mild, Verified 11/08/23 11:51) HIVES Sulfa (Sulfonamide Antibiotics) Allergy (Mild, Verified 11/08/23 11:51) Hives sulfamethoxazole [From Bactrim] Allergy (Mild, Verified 11/08/23 11:51) inflamed hives, rash, trimethoprim [From Bactrim] Allergy (Mild, Verified 11/08/23 11:51) inflamed hives, rash, amoxicillin [AMOXICILLIN] Allergy (Unknown, Verified 11/08/23 11:51) HIVES citalopram [From Celexa] Allergy (Verified 11/08/23 11:51) Hives lamotrigine [From Lamictal] Allergy (Verified 11/08/23 11:51) Hives morphine Adverse Reaction (Mild, Verified 11/08/23 11:51) Itching haloperidol [From Haldol] Adverse Reaction (Verified 11/08/23 11:51) Angioedema Medication List - Last Reconciled 11/08/23 by Andrew Bruno MD albuterol sulfate 90 mcg/actuation 2 puffs PO Q4-6H PRN bisacodyl 5 mg PO DAILY PRN bisacodyl (Dulcolax (bisacodyl)) 10 mg SC DAILY PRN buprenorphine-naloxone 12-3 mg (Suboxone) 30 mg sublingual DAILY clonazepam (Klonopin) 2 mg PO TID clonidine HCl 3 tabs PO BEDTIME dextroamphetamine-amphetamine 20 mg 20 mg PO DAILY@1400 dextroamphetamine-amphetamine 30 mg ER (Adderall XR) 30 mg PO DAILY dicyclomine 20 mg PO TID PRN 30 days docusate sodium (Colace) 200 mg (2 x 100 mg) PO BEDTIME 30 days ergocalciferol (vitamin D2) (Drisdol) 1,250 mcg PO QWEEK folic acid 1 mg PO DAILY ipratropium-albuterol 0.5 mg-3 mg(2.5 mg base)/3 mL 3 mL inhalation Q6H PRN 30 days methylcellulose (laxative) (Citrucel) 500 mg PO BID 30 days metoprolol tartrate 12.5 mg PO omeprazole 40 mg PO ondansetron 4 mg PO Q12H 30 days polyethylene glycol 3350 (Miralax) 17 grams PO DAILY PRN 30 days rosuvastatin 10 mg PO QAM sertraline 2 tabs PO QAM simethicone (Gas-X Extra Strength) 125 mg PO BEDTIME PRN 30 days theophylline ER 400 mg PO QAM tiotropium-olodaterol 2.5-2.5 mcg/actuation (Stiolto Respimat) 2 puffs PO DAILY verapamil ER 120 mg PO QPM ziprasidone HCl (Geodon) 80 mg PO BID zolpidem (Ambien) 10 mg PO BEDTIME PRN HPI follow up from procedure HPI Details GI clinic visit for this 58-year-old female for FU of GERD, iron deficiency anemia, chronic constipation, abdominal pain and weight loss. CHRONIC ILLNESSES: hypercholesterolemia, depressive disorder, hepatitis C - treated - viral load < 1.18 in 08/2018, vitamin D deficiency, slow transit const ipation, chronic cough, smoker LABS IN [facility]: 06/11/19 H&H of 13.6 and 40.3 improved from February 2019), platelet 330, normal Chem panel and LFTs IMAGING STUDIES: 01/[address] SCAN SHOWED: 1. No acute intra-abdominal process see n. 2. Moderate to significant constipation . No obstruction. Normal appendix. Constipation has been chronic. Recommend medical treatment. 3. Bilateral renal cysts and cortical d efect lower pole left kidney. 4. There is a prominent round lesion monserrat l of pancreas likely normal hepatic tissue. It is unchanged to last exam 11/28/2022 ENDOSCOPIC STUDIES: 10/17/23 EGD AND COLONOSCOPY WERE PERFORMED BY DR RAMÍREZ: Endoscopy Findings: gastritis possible gastroparesis, 2/2 meds Colonoscopy Findings: melanosis coli poor prep Plan: Await Pathology results Repeat Colonoscopy in few months with compliance with prep or 2 d of clears BIOPSIES SHOWED: A. Duodenum, biopsy: Duodenal mucosa with preserved villi and no specific change. B. Stomach, biopsy: Gastric body mucosa with minimal chronic inactive gastritis; negative for H pylori, intestinal metaplasia and dysplasia 2017 EGD AND COLON SHOWED: LARYNX: Mild changes of LPRD ESOPHAGUS: Mild distal esophagitis. Dysphagia likely due to esophageal motility disorder versus EOE. STOMACH: gastric polyps, gastritis in fundus DUODENUM: Normal Colonoscopy Findings: Four polyps removed Constipation likely due to slow transit versus IBS with constipation Plan: Continue present medications (Omeprazole at 40 mg PO once daily) Patient has an appointment on 04/30/2018 in the GI Clinic with Andrew Bruno M.D. Repeat Colonoscopy interval based on path results. Above findings were discussed with Cherri and she was advised to keep her GI clinic appointment to discuss biopsy results. Constipation has resolved with Miralax three times a day BIOPSIES SHOWED: Tubular adenoma in the transverse colon and tubular adenoma and hyperplastic polyp in the sigmoid colon TODAY'S VISIT Patient cc: nauseas, abdominal pain with bloating, hard time to swallow food, heartburn with burning sensation, constipation, no appetite, dizziness. EGD and colon results reviewed with the patient. Pt expressed frustration and was tearful during the visit due to chronic pain and persistent medical issues Pt was joined at the end of the visit by Gena, her outreach analyst Colon has to be rescheduled due to poor prep. States abd pain is indescribable. Also complains of excessive foul smelling gas. Last BM was 5 days ago - usually has a BM 1-2 times a week. Stool are not hard - can have a firm stool once in a while Feels tired, weak and dizzy. Finds it hard to maintain her house. Has been waiting 3 yrs for a ENDBAND SIZER Takes Suboxone two 30 mg pills daily. Planning to go to the Methadone clinic for chronic pain management. PAST VISITS Pt is accompanied by her Gena Dick, her out reach worker Complains of upper abd pain and radiates to the cervix and ovaries Pain is there 80% of the time usually between 5 to 7 in intensity Abd pain is worse when she is anxious Feels like a knot which gets tighter and tighter. Also has chronic back pain. Complains of nausea all the time - unable to puke Constipation is better - has a BM 2-3 times a day with loose BMs. Taking Miralax 1-2 times a day. Pain increased despite relief of constipation. Appetite is poor - lives on cereal, yogurt, rice pudding Denies wt loss - usually 171 to 182 lbs Lives with her 18 yr old daughter. Waiting for a ENDBAND SIZER PAST VISITS She presents today- 5 years of abdominal pain entire abdomen hurts- my liver, ovaries, uterus -she has not seen die cutter apprentice in greater than a decade-she has no further menses- TL 2008 LBP for years. Abdominal pain starts at night only- BM-consistent regimen- having 1-2 normal BM QD- that problem is fixed. she has not yet seen cardiology- she cancels due to other appts. She is being referred to pain clinic- by pcp She has no nausea, vomiting, hematemesis, hematochezia no fever or chills ?Worried since her 14 Yr old daughter has been sick and missing school (9th Grade). ?Heartburn is well controlled with Prilosec 40 mg twice a day. ?Notes heartburn within 6 hours if she forgets to take it. ?Taking iron and vitamin C for iron deficiency anemia and advised to stop since anemia has resolved. ?Feels lethargic and fatigued every day. ?Trying to drink more fluid. ?Urinates 2-3 times a day. ?Drinks 3-4 glasses of water a day - tries to add some flavor so she can drink it. ?Gets short of breath when she stands for too long doing her dishes. ?Saw a crm campaign manager 2 yrs ago. ?Cut back on smoking from 2 PPD to 7 Cigg per day and is trying to quit. ?PAST GI HISTORY BY REVIEW OF MEDICAL RECORDS: ?Patient was last seen on Aug, 2019: Assessments ?1. Gastroesophageal reflux disease with esophagitis - K21.0 (Primary) ?2. Iron deficiency anemia, unspecified iron deficiency anemia type - D50.9 ?3. Constipation, unspecified constipation type - K59.00 ?54 YF with hypercholesterolemia, depressive disorder, hepatitis C - treated, vitamin D deficiency, slow transit constipation, chronic cough, smoker with history of GERD here for FU of GERD, ARACELY, constipation and weight loss. ?Did not have enough money to buy food and was giving food to her daughter and was staying hungry with weight loss. I suspect iron deficiency anemia is likely nutritional in etiology since stool hemoccults x 3 were negative in the past. Iron deficiency anemia has improved and she has regained some of the weight she lost. ?1. Gastroesophageal reflux disease, esophagitis presence not specified ?Continue present medications (Omeprazole at 40 mg PO twice daily for GERD. ?. ?2. Iron deficiency anemia, unspecified iron deficiency anemia type ?LAB: CREATININE ?LAB: CBC w/o DIFF ?Notes: Iron deficiency anemia improved with oral iron replacement. Patient was advised to continue ferrous sulfate and vitamin C once daily. ?3. Chronic constipation ?Notes: Advised to take Miralax daily for constipation. If symptoms persist, she can be switched to Linzess. ?Treatment ?1. Gastroesophageal reflux disease with esophagitis ?Notes: ?PATIENT INSTRUCTIONS: ?DECREASE IRON AND VITAMIN C TO SUNDAY, SUN AND FRIDAYS. ?HAVE LABS CHECKED 1-2 WEEKS BEFORE YOUR FOLLOW UP APPOINTMENT ?. ?2. Iron deficiency anemia, unspecified iron deficiency anemia type ? LAB: CREATININE ? 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 Mother No problems noted. Social History Household Members: Children Alcohol intake: never Patient Tobacco Use Status: Former Tobacco user Quit Date: 1 year Tobacco use type: Cigarette Current occupational status: unemployed Review of Systems Const All systems reviewed & are unremarkable except as noted in HPI and below Physical Exam Vital Signs: Last Vital Signs Pulse 74 11/08/23 11:53 BP 87/51 L 11/08/23 11:53 BMI result Body Mass Index 30.9 Const General: healthy appearing and no acute distress Nutritional Appearance: average body habitus Orientation/consciousness: patient oriented x3 Limitations: no limitations HEENT Head: Yes normal to inspection Ears: hearing grossly normal bilaterally Mouth: Normal oral and palatal mucosa present Eyes Sclerae: sclerae normal Pupils: Equal, round and reactive pupils present Neck Neck: Yes normal visual inspection Chest Chest palpation & inspection: normal inspection of the chest Resp Effort & Inspection: normal respiratory effort Auscultation: clear to auscultation bilaterally Cardio Palpation: normal PMI Rate: regular rate Rhythm: regular rhythm Heart sounds: S1 normal heart sound present, S2 normal heart sound present and no murmurs GI Palpation (GI): Soft to palpation, Tenderness to palpation present (GI) (mild diffuse abdominal tenderness without rebound) and No hepatosplenomegaly present Auscultation: normal bowel sounds Rectal Exam - Female: deferred Skin General skin exam: no rashes or lesions noted Neuro General: patient oriented x3, gait normal and moves all extremities Cranial nerves: Yes Equal, round and reactive pupils present Psych Appearance: grossly normal Mental Status: mental status grossly normal Assessment & Plan Assessment & Plan (1) Nausea: Code(s): R11.0 - Nausea (2) Abnormal CT of the abdomen: Code(s): R93.5 - Abnormal findings on diagnostic imaging of other abdominal regions, including retroperitoneum (3) Abdominal pain: Comment: Mild tenderness diffuse No guarding Code(s): R10.9 - Unspecified abdominal pain (4) Tubular adenoma: Comment: Overdue for polyp surveillance- finally BM daily w/ consistent bowel regimen Code(s): D36.9 - Benign neoplasm, unspecified site (5) Chronic pain syndrome: Comment: Abdominal pain, wanders, reviewed CT an u/s Physical exam abdomen soft, Code(s): G89.4 - Chronic pain syndrome (6) Chronic constipation: Comment: Suboxone, Medication induced, again reinforce Consistent bowel regimen-maintain high-f iber diet Reviewed medication list, previous abdominal imaging with patient Code(s): K59.09 - Other constipation (7) Acid reflux: Comment: Continue Prilosec 20 mg b.i.d. Avoid culprits, chew her food well, hope for dentures in the near future Code(s): K21.9 - Gastro-esophageal reflux disease without esophagitis (8) Early satiety: Code(s): R68.81 - Early satiety Plan 58 YF with hypercholesterolemia, depressive disorder, hepatitis C - treated, vitamin D deficiency, slow transit constipation, chronic cough, smoker with history of GERD here for FU of GERD, ARACELY, constipation and weight loss. Aug, 2019 Pt did not have enough money to buy food and was giving food to her daughter and was staying hungry with weight loss. I suspect iron deficiency anemia is likely nutritional in etiology since stool hemoccults x 3 were negative in the past. Iron deficiency anemia has improved and she has regained some of the weight she lost. Patient complains fatigue and shortness of breath and continues to have a persistently low blood pressure. She was advised to increase her fluid intake with water and sports drinks 11/08/23 EGD and colon results reviewed with the patient. Pt expressed frustration and was tearful during the visit due to chronic pain and persistent medical issues Colon has to be rescheduled due to poor prep after constipation is adequately treated. States abd pain is indescribable. Also complains of excessive foul smelling gas. Last BM was 5 days ago - usually has a BM 1-2 times a week. Stool are not hard - can have a firm stool once in a while Takes Suboxone two 30 mg pills daily. Planning to go to the Methadone clinic for chronic pain management. Pt was advised to schedule a GES and a CT scan (FU of abnormal pancreas on CT scan in 01/2023) She is scheduled for an MRI on 11/19/23 and unable to tolerate an MRI due to claustrophobia Colon will be rescheduled due to poor prep after constipation is adequately treated. Patient was started on lubiprostone 8 mcg twice daily for chronic constipation. FU in 6 weeks after above Orders: Orders NM gastric emptying study Today R68.81 - Early satiety Medications: New lubiprostone 8 mcg PO BID 30 days 60 caps 3RF K59.09 - Other constipation Coding Level of Care Code Est Pt Level 4 (10029) Diagnoses Nausea R11.[address] of the abdomen R93.5 Abdominal pain R10.9 Tubular adenoma D36.9 Chronic pain syndrome G89.4 Chronic constipation K59.09 Acid reflux K21.9 Early satiety R68.81 Time Spent (min) 23
[2023-11-08 11:53] VITALS: BP 87/51; PULSE 74; BMI 30.9
== END 2023-11-08 12:57 | disposition home or self-care (01) ==
PROVIDERS: PCP Nurse Practitioner Primary Care; Visit Provider Internal Medicine Gastroenterology
DX: R11.0 Nausea (principal); R93.5 Abnormal findings on diagnostic imaging of other abdominal regions, including retroperitoneum; R10.9 Unspecified abdominal pain; D36.9 Benign neoplasm, unspecified site; G89.4 Chronic pain syndrome; K59.09 Other constipation; K21.9 Gastro-esophageal reflux disease without esophagitis; R68.81 Early satiety
CPT/HCPCS: 99214

== ENCOUNTER → 2023-11-08 11:43 | Outpatient (BNVA) | payer MEDICAID, SELFPAY | PROVIDERS: PCP Nurse Practitioner Primary Care; Visit Provider Internal Medicine Gastroenterology | DX: K59.09 Other constipation (principal); K21.9 Gastro-esophageal reflux disease without esophagitis; R11.0 Nausea; R93.5 Abnormal findings on diagnostic imaging of other abdominal regions, including retroperitoneum; R10.9 Unspecified abdominal pain; D36.9 Benign neoplasm, unspecified site; G89.4 Chronic pain syndrome; R68.81 Early satiety; Z79.899 Other long term (current) drug therapy | CPT/HCPCS: 99212 ==

== ENCOUNTER 2023-11-19 15:02 | Outpatient (REF) | payer MEDICAID, SELFPAY ==
--- NOTE | ~2023-11-19 | MR_ITS ---
EXAMINATION: MR ABDOMEN WITHOUT AND WITH CONTRAST CLINICAL INFORMATION: Abnormal CT, please evaluate the pancreas COMPARISON: CT abdomen and pelvis 02/19/2023 TECHNIQUE: MRI of the abdomen before and after the IV administration of 8 mL of Gadavist was obtained using routine sequences. FINDINGS: LUNG BASES: The visualized lung bases are unremarkable. KIDNEYS AND URETERS: Bosniak 1 bilateral renal cysts, no imaging follow-up recommended. Bosniak 1 bilateral renal cysts, no imaging follow-up recommended. A 1.1 cm T2 dark, intermediate T2 signal right upper pole renal lesion without any definite measurable enhancement likely a Bosniak 2 proteinaceous or hemorrhagic cyst. GALLBLADDER: Unremarkable. LIVER AND BILIARY TREE: The liver is normal in signal and morphology. No suspicious liver lesion. No intra or extrahepatic biliary duct dilatation. PANCREAS: In the tail of the pancreas is a 1 cm mass unchanged in size from prior previously 1 cm which demonstrates T2 signal isointense to the spleen and postcontrast signal commensurate with splenic enhancement raising the possibility of an intrapancreatic splenule which could be confirmed with a technetium 99m tagged RBC scan. SPLEEN: Incidentally noted accessory splenule. ADRENAL GLANDS: Unremarkable GASTROINTESTINAL TRACT: Unremarkable. LYMPH NODES: No lymphadenopathy. VASCULAR: Unremarkable ABDOMINAL WALL: Unremarkable. OSSEOUS STRUCTURES: Focal fat is noted in the L1 vertebral body. MR/MR abdomen wo/w con IMPRESSION: 1. In the tail of the pancreas is a 1 cm mass unchanged in size from prior which demonstrates T2 signal and postcontrast signal isointense to the spleen raising the possibility this may reflect an intrapancreatic splenule which can be confirmed with a technetium 99m tagged RBC scan.
[2023-11-19] MEDS: gadobutroL 10 ML VIAL IVPUSH (15:50)
== END 2023-11-19 15:03 | disposition home or self-care (01) ==
LOC: HO.MRI 15:02
PROVIDERS: PCP Nurse Practitioner Primary Care; Visit Provider Physician Assistant
DX: R10.9 Unspecified abdominal pain (principal); R93.5 Abnormal findings on diagnostic imaging of other abdominal regions, including retroperitoneum
CPT/HCPCS: 74183; A9585

== ENCOUNTER 2024-01-26 13:04 | Emergency (ER) | payer MEDICAID, SELFPAY ==
--- NOTE | ~2024-01-26 | CT_ITS ---
EXAMINATION: CT ABDOMEN AND PELVIS WITH CONTRAST CLINICAL INFORMATION: Abdominal pain COMPARISON: Previous CT of the abdomen and pelvis most recent January 2023, abdominal ultrasound March 2023 and abdominal MRI October 2023 TECHNIQUE: Multidetector volumetric images were obtained from the superior aspect of the liver through the pubic symphysis following administration 85 mL of Omnipaque 350 intravenous contrast. Sagittal and coronal reformatted images were obtained on the technologist's workstation. Oral contrast: Yes This CT examination was performed using dose optimization techniques as appropriate, variously including the following: *Automated exposure control *Adjustment of mA and/or kV according to patient size (this includes techniques or standardized protocols for targeted exams where dose is matched to indication/reason for exam; i.e. extremities or head) *Use of iterative reconstruction technique DLP: 584 mGy-cm FINDINGS: LUNG BASES: The visualized lung bases are unremarkable. LIVER, GALLBLADDER, AND BILIARY TREE: The liver is normal in size, shape, and attenuation. No focal hepatic lesion or biliary ductal dilatation is present. The gallbladder is unremarkable with no evidence of radiopaque gallstones, gallbladder wall thickening, or obvious pericholecystic inflammatory changes. PANCREAS: Stable 1 cm high attenuation lesion exophytic to the tail of the pancreas. This is similar in attenuation or enhancement to the spleen and is again questionable for intrapancreatic splenule. Pancreas otherwise unremarkable. SPLEEN: Unremarkable. ADRENAL GLANDS: Unremarkable. KIDNEYS AND URETERS: The kidneys are normal in size, shape, and attenuation. No hydronephrosis, hydroureter, or calculi seen. Bilateral renal simple cysts. 1 cm high attenuation lesion exophytic to the upper pole of the right kidney similar to prior exams probably representing a proteinaceous or hemorrhagic cyst, Bosniak type II. Kidneys otherwise unremarkable. BLADDER: Unremarkable. GASTROINTESTINAL TRACT: Stool throughout the colon. Question mild wall thickening/colitis of the left colon versus changes due to underdistention. The small and large bowel are otherwise unremarkable. The appendix is not seen. No inflammatory changes in the right lower quadrant.. ABDOMINAL WALL: No significant hernia is appreciated. LYMPH NODES: Normal. VASCULAR: Unremarkable. PELVIC VISCERA: Unremarkable. OSSEOUS STRUCTURES: Degenerative disc disease at L5-S1 area CT/CT abdomen pelvis w IV con IMPRESSION: Constipation. Question mild colitis of the left colon versus changes due to underdistention. Stable pancreas and renal findings. Fleischner guidelines were followed.
[2024-01-26 13:42] VITALS: BP 110/65; PULSE 77; RESP 16; TEMP 36.6; O2SAT 98; BMI 28.6
--- NOTE | 2024-01-26 13:43 | ED.ABDPAIN ---
HPI - Abdominal Pain General Chief Complaint: Abdominal Pain Stated Complaint: abd pain Time Seen by Provider: 01/26/24 16:00 Source: patient and RN notes reviewed Mode of arrival: ambulatory Limitations: no limitations History of Present Illness ED Provider: Rony Patrick NP HPI narrative: Patient is a 58-year-old female with history of COPD and GERD, hepatitis C, hypercholesterolemia, reported ulcer presenting to the emergency department with complaint of epigastric pain for the past 4 days. States that she has also been constipated, last normal bowel movement was Sunday or Sunday. She reports that she takes her medications as prescribed. Has not taken anything specifically for her epigastric pain. Denies vomiting but does report some nausea. States symptoms were worse after eating or drinking. Denies fevers. Denies chest pain, palpitations or shortness of breath. Denies any urinary urgency, dysuria, hematuria or other urinary symptoms. MD elicited complaint: abdominal pain Pertinent past history: constipation, gastritis and other Onset (ago): day(s) Pain Consistency: constant Location: epigastric Severity: severe Radiation: none Migration to: no migration Exacerbating factors: eating Relieving factors: nothing Context: history of similar episodes Associated symptoms: nausea Related Data Home Medications ?Medication ?Instructions ?Recorded ?Confirmed clonazepam 2 mg tablet (Klonopin) 2 mg PO TID 01/31/21 11/08/23 ergocalciferol (vitamin D2) 1,250 1,250 mcg PO QWEEK 01/31/21 11/08/23 mcg (50,000 unit) capsule (Drisdol) folic acid 1 mg tablet 1 mg PO DAILY 01/31/21 11/08/23 ziprasidone HCl 80 mg capsule 80 mg PO BID 01/31/21 11/08/23 (Geodon) zolpidem 10 mg tablet (Ambien) 10 mg PO BEDTIME PRN Sleep 01/31/21 11/08/23 clonidine HCl 0.1 mg tablet 3 tab PO BEDTIME insomnia 07/07/21 11/08/23 dextroamphetamine-amphetamine 20 20 mg PO DAILY@1400 07/07/21 11/08/23 mg tablet dextroamphetamine-amphetamine ER 30 mg PO DAILY 07/07/21 11/08/23 30 mg 24hr capsule,extend release (Adderall XR) sertraline 100 mg tablet 2 tab PO QAM 07/07/21 11/08/23 buprenorphine 12 mg-naloxone 3 mg 30 mg sublingual DAILY 12/28/21 11/08/23 sublingual film (Suboxone) metoprolol tartrate 25 mg tablet 12.5 mg PO 02/28/23 11/08/23 omeprazole 40 mg capsule,delayed 40 mg PO 02/28/23 11/08/23 release rosuvastatin 10 mg tablet 10 mg PO QAM 02/28/23 11/08/23 verapamil 120 mg 24 hr 120 mg PO QPM 02/28/23 11/08/23 capsule,extended release Previous Rx's ?Medication ?Instructions ?Recorded methylcellulose (laxative) 500 mg 500 mg PO BID 30 days #60 tabs 11/23/21 tablet (Citrucel) albuterol sulfate 90 mcg/actuation 2 puff PO Q4-6H PRN shortness of 08/01/22 aerosol inhaler breath or wheezing #1 ea ipratropium 0.5 mg-albuterol 3 mg 3 ml inhalation Q6H PRN for 09/20/22 (2.5 mg base)/3 mL nebulization wheezing 30 days #360 mL soln docusate sodium 100 mg capsule 200 mg (2 x 100 mg) PO BEDTIME 30 02/28/23 (Colace) days #60 caps polyethylene glycol 3350 17 gram 17 g PO DAILY PRN constipation 30 04/11/23 oral powder packet (Miralax) days #30 ea simethicone 125 mg capsule (Gas-X 125 mg PO BEDTIME PRN abdominal 04/11/23 Extra Strength) distention 30 days #30 caps bisacodyl 5 mg tablet,delayed 5 mg PO DAILY PRN for constipation 06/18/23 release #30 tabs dicyclomine 20 mg tablet 20 mg PO TID PRN abdominal pain 30 08/10/23 days #60 tabs bisacodyl 10 mg rectal suppository 10 mg RI DAILY PRN constipation 08/30/23 (Dulcolax (bisacodyl)) #20 ea ondansetron 4 mg disintegrating 4 mg PO Q12H 30 days #40 tabs 09/12/23 tablet theophylline 400 mg 400 mg PO QAM #90 tabs 10/31/23 tablet,extended release 24 hr lubiprostone 8 mcg capsule 8 mcg PO BID 30 days #60 caps 11/08/23 tiotropium 2.5 mcg-olodaterol 2.5 2 puff PO DAILY #4 grams 12/26/23 mcg/actuation mist for inhalation (Stiolto Respimat) Allergies Allergy/AdvReac Type Severity Reaction Status Date / Time codeine Allergy Severe Anaphylaxis Verified 01/26/24 13:46 aspirin Allergy Mild Hives Verified 01/26/24 13:46 Penicillins [PENICILLINS] Allergy Mild HIVES Verified 01/26/24 13:46 Sulfa (Sulfonamide Allergy Mild Hives Verified 01/26/24 13:46 Antibiotics) sulfamethoxazole Allergy Mild inflamed Verified 01/26/24 13:46 [From Bactrim] hives, rash, trimethoprim [From Bactrim] Allergy Mild inflamed Verified 01/26/24 13:46 hives, rash, amoxicillin [AMOXICILLIN] Allergy Unknown HIVES Verified 01/26/24 13:46 citalopram [From Celexa] Allergy Hives Verified 01/26/24 13:46 lamotrigine [From Lamictal] Allergy Hives Verified 01/26/24 13:46 morphine AdvReac Mild Itching Verified 01/26/24 13:46 haloperidol [From Haldol] AdvReac Angioedema Verified 01/26/24 13:46 Review of Systems Review of Systems As per HPI. 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 Mother No problems noted. Social History Social History Household Members: Children Alcohol intake: never Patient Tobacco Use Status: Former Tobacco user Tobacco use type: Cigarette Smoked in Last 30 Days: Yes Advance Directives: No Advance Directives Information Provided: Yes Do you have a plan to hurt others: No Plan Patient : No Current occupational status: unemployed Physical Exam ED Vital Signs: Vital Signs - 24 hr 01/26/24 13:42 01/26/24 16:00 01/26/24 18:34 Temperature 98 F 98.0 F 97.9 F Pulse Rate 77 68 56 Respiratory Rate 16 20 16 Blood Pressure 110/65 131/69 91/61 Pulse Oximetry 98 96 91 L Oxygen Delivery Method Room Air Room Air 01/26/24 19:16 Temperature 97.9 F Pulse Rate 65 Respiratory Rate 17 Blood Pressure 113/62 Pulse Oximetry 94 Oxygen Delivery Method Room Air BMI result Body Mass Index 28.6 Vital signs have been reviewed and appear to be correct. Blood pressure normal. Heart rate normal. Respiratory rate normal. Temperature normal. Oxygen saturation normal. Const General: cooperative, healthy appearing and no acute distress Orientation/consciousness: oriented to person, oriented to place, oriented to time and patient oriented x3 Limitations: no limitations HENMT Head: Yes normocephalic and Yes atraumatic Ears: external ears normal General nose exam: Normal external nose present Face and sinus: Yes face symmetric Mouth: oropharynx normal and moist mucous membranes Throat: Yes uvula midline Eyes Pupils: Equal, round and reactive pupils present Neck Neck: Yes normal visual inspection and Yes supple Resp Effort & Inspection: normal respiratory effort and able to speak in complete sentences Auscultation: clear to auscultation bilaterally Cardio Rate: regular rate Rhythm: regular rhythm Heart sounds: S1 normal heart sound present and S2 normal heart sound present GI Inspection: Yes normal to inspection Palpation (GI): Soft to palpation, Tenderness to palpation present (GI) in the epigastrum, no guarding and No Rebound tenderness present Auscultation: normoactive bowel sounds General: Yes no CVA tenderness Back/Spine/Pelvis Back: no CVA tenderness Skin General skin exam: elasticity normal and turgor normal Neuro General: oriented to person, oriented to place, oriented to time, patient oriented x3, moves all extremities, no focal motor deficits and CN's II-XI intact bilaterally Cranial nerves: Yes Equal, round and reactive pupils present Cognition (Neuro): normal cognition Extrem General: Yes full ROM, Yes no pedal edema and Yes no calf tenderness Psych Mental Status: mental status grossly normal Affect: normal affect Thought process: Normal thought process present Course Course Course Narrative: This is an RME: Additional HPI, ROS, PE not included below will be deferred to primary provider. RME assessment and note performed by: Bobbi Anguiano PA-C This is a [id number]-female, with a hx of COPD and GERD, hepatitis C, hypercholesterolemia, who presents to the ER with a complaint of chronic abdominal pain x 4 days. She is also reporting shortness of breath and back pain. She is very tearful, abdomen is diffusely tender. Plan: labs UA, further ER evaluation needed. Medical Decision Making Medical Decision Making [facility] Narrative: Patient is a 58-year-old female with history of COPD and GERD, hepatitis C, hypercholesterolemia, reported ulcer presenting to the emergency department with complaint of epigastric pain for the past 4 days. On exam patient is awake, A+Ox3, VS WNL, afebrile, normal neurological exam without focal deficits, physical exam findings as above. Given reported symptoms and physical exam findings, initial differential includes gastritis, GERD, PUD, constipation, UTI. Less likely cholecystitis, pancreatitis. Labs notable for no leukocytosis, no anemia, normal LFTs, ammonia, negative troponin. CT notable for constipation. My interpretation is in agreement with the radiologist's interpretation. No evidence of infection on urinalysis. Symptoms improved with medications given in the emergency department. Feels patient is stable for discharge home at this time. Instructed her to follow-up with primary care provider. Return precautions discussed at bedside. Patient verbalized understanding of and agreement with plan. Differential Diagnosis Differential Diagnoses: The differential diagnosis associated with the presentation includes As per MDM. Admission/Observation Consideration of admission/observation: Escalation of care including admission/observation considered Patient would have been admitted to the hospital had their work up had any findings where hospital admission was appropriate and their clinical presentation warranted hospital admission. Lab Data [facility] Lab Attestation statement: I reviewed the patient's lab results. As per [facility]. 01/26/24 13:58 01/26/24 13:58 Labs: Lab Results 01/26/24 01/26/24 Range/Units 13:58 20:02 WBC 9.4 (4.8-10.8) X10*3/uL RBC 4.70 (4.20-5.50) X10*6/uL Hgb 12.9 (12.0-16.0) g/dl Hct 38.6 (37.0-47.0) % MCV 82.1 (80.0-98.0) fL MCH 27.4 (27.0-33.0) pg MCHC 33.4 (31.0-35.0) g/dl RDW 15.9 (11.0-16.0) % Plt Count 308 (160-400) X10*3/uL MPV 10.8 (9.4-12.3) fL Immature Gran % (Auto) 0.2 (0.0-0.4) % Neut % (Auto) 62.7 (45-73) % Lymph % (Auto) 27.9 (20-40) % [place] % (Auto) 5.9 (2-11) % Eos % (Auto) 2.1 (0-4) % Baso % (Auto) 1.2 (0-2) % Lymph # (Auto) 2.6 (1.2-4.9) X10*3/uL [place] # (Auto) 0.6 (0.1-1.2) X10*3/uL Eos # (Auto) 0.2 (0.0-0.4) X10*3/uL Baso # (Auto) 0.1 (0.0-0.2) X10*3/uL Abs Immat Gran (auto) 0.02 (0.00-0.03) X10*3/uL Absolute Neuts (auto) 5.9 (2.0-8.3) x10*3/uL Absolute Nucleated RBC 0.000 (0.0-0.012) X10*3/uL Nucleated RBC % (auto) 0.0 (0.0-0.2) /100WBC Sodium 142 (135-145) mmol/L Potassium 3.8 (3.3-5.1) mmol/L Chloride 102 (96-108) mmol/L Carbon Dioxide 31 H (22-29) mmol/L Anion Gap 13 (12-20) BUN 9 (9-16) mg/dL Creatinine 1.19 (0.5-1.4) mg/dL Estim Creat Clear Calc 54.5 Estimated GFR 47 Random Glucose 96 (60-115) mg/dL Calcium 11.6 H D (8.4-10.2) mg/dL Total Bilirubin 0.4 (0.0-1.0) mg/dL Direct Bilirubin 0.2 (0.0-0.5) mg/dL AST 22 (5-31) U/L ALT 10 (0-31) U/L Alkaline Phosphatase 104 (39-117) U/L Ammonia 28 (13-55) umol/L Total Creatine Kinase 36 (26-140) U/L Troponin I High Sens < 2.7 (<3.5-17.0) ng/L Total Protein 8.5 H (6.5-8.0) g/dL Albumin 4.3 (3.5-5.0) g/dL Lipase 12 (8-78) U/L Urine Color Yellow Urine Appearance Clear Urine pH 5.5 (5.0-9.0) Ur Specific [place] >= 1.030 H (1.005-1.025) Urine Protein Negative (Neg-Trace) mg/dL Urine Glucose (UA) Negative (Negative) mg/dL Urine Ketones Negative (Negative) mg/dL Urine Blood Negative (Negative) Urine Nitrite Negative (Negative) Ur Leukocyte Esterase Negative (Negative) Independent Interpretation I performed an independent interpretation of an: CT Scan Interpretation: CT A/P shows constipation. Radiology Impression Discussion of test interpretation with radiology: I have reviewed the radiologist's reading. Radiologist Impression: CT/CT abdomen pelvis w IV con IMPRESSION: Constipation. Question mild colitis of the left colon versus changes due to underdistention. Stable pancreas and renal findings. Fleischner guidelines were followed. External Record Review External record reviewed: Inpatient record, Office record and Outpatient record Medications Administered Discontinued Medications Generic Name Dose Route Start Last Admin Trade Name Freq PRN Reason Stop Dose Admin Al Hydroxide/Mg Hydroxide 15 ml 01/26/24 16:21 01/26/24 16:45 Magnesium Hydrox/Alum Hydrox 30 Ml Oral.Susp PO 01/26/24 16:22 15 ml ONCE ONE Administration Sodium Chloride 1,000 mls @ 999 mls/hr 01/26/24 16:30 01/26/24 19:22 Ns IV 01/26/24 17:30 Infused .Q1H1M TREVOR Infusion Iohexol 100 ml 01/26/24 14:57 01/26/24 14:57 Iohexol 350 Mg/Ml 100 Ml Infus..Btl IV 01/26/24 14:58 85 ml ONCE ONE Administration Discharge Plan Discharge Clinical Impression: Abdominal pain, epigastric Patient Disposition: Home, Self-Care Instructions: Epigastric Pain (ED) Additional Instructions: You were evaluated in the emergency department today for epigastric abdominal pain. Your evaluation did not reveal evidence of conditions requiring emergent medical treatment at this time. Your CT scan did show evidence of constipation. We recommend that you take your previously prescribed constipation medications. Please follow-up with your primary care provider. Return to the emergency department if you develop persistent vomiting, fever 100.4? F or greater, increasing pain or any other concerning symptoms. Prescriptions: No Action Citrucel 500 mg tablet 500 mg PO BID 30 Days Qty: 60 2RF bisacodyl 5 mg tablet,delayed release (DR/EC) 5 mg PO DAILY PRN (Reason: for constipation) Qty: 30 1RF bisacodyl [Dulcolax (bisacodyl)] 10 mg suppository 10 mg RI DAILY PRN (Reason: constipation) Qty: 20 0RF ondansetron 4 mg tablet,disintegrating 4 mg PO Q12H 30 Days Qty: 40 1RF theophylline 400 mg tablet extended release 24 hr 400 mg PO QAM Qty: 90 1RF Stiolto Respimat 2.5-2.5 mcg/actuation mist 2 puff PO DAILY Qty: 4 3RF clonidine HCl 0.1 mg tablet 3 tab PO BEDTIME sertraline 100 mg tablet 2 tab PO QAM dextroamphetamine-amphetamine 20 mg tablet 20 mg PO DAILY@1400 dextroamphetamine-amphetamine [Adderall XR] 30 mg capsule,extended release 24hr 30 mg PO DAILY clonazepam [Klonopin] 2 mg tablet 2 mg PO TID ziprasidone HCl [Geodon] 80 mg capsule 80 mg PO BID Rx Instructions: give with food (meal/snack) zolpidem [Ambien] 10 mg tablet 10 mg PO BEDTIME PRN (Reason: Sleep) folic acid 1 mg tablet 1 mg PO DAILY ergocalciferol (vitamin D2) [Drisdol] 1,250 mcg (50,000 unit) capsule 1,250 mcg PO QWEEK buprenorphine-naloxone [Suboxone] 12-3 mg film 30 mg sublingual DAILY albuterol sulfate 90 mcg/actuation HFA aerosol inhaler 2 puff PO Q4-6H PRN (Reason: shortness of breath or wheezing) Qty: 1 6RF ipratropium-albuterol 0.5 mg-3 mg(2.5 mg base)/3 mL solution for nebulization 3 ml inhalation Q6H PRN (Reason: for wheezing) 30 Days Qty: 360 6RF omeprazole 40 mg capsule,delayed release(DR/EC) 40 mg PO metoprolol tartrate 25 mg tablet 12.5 mg PO rosuvastatin 10 mg tablet 10 mg PO QAM verapamil 120 mg capsule,ext rel. pellets 24 hr 120 mg PO QPM docusate sodium [Colace] 100 mg capsule 200 mg PO BEDTIME 30 Days Qty: 60 5RF polyethylene glycol 3350 [Miralax] 17 gram powder in packet 17 g PO DAILY PRN (Reason: constipation) 30 Days Qty: 30 5RF simethicone [Gas-X Extra Strength] 125 mg capsule 125 mg PO BEDTIME PRN (Reason: abdominal distention) 30 Days Qty: 30 2RF dicyclomine 20 mg tablet 20 mg PO TID PRN (Reason: abdominal pain) 30 Days Qty: 60 3RF lubiprostone 8 mcg capsule 8 mcg PO BID 30 Days Qty: 60 3RF Print Language: Romansh
[2024-01-26 14:04] LABS: MANUAL DIFF FLAG NO
[2024-01-26 14:07] LABS: Basophils Absolute Auto 0.1 X10*3/uL (0.0-0.2); Basophils Percent Auto 1.2 % (0-2); Eosinophils Absolute Auto 0.2 X10*3/uL (0.0-0.4); Eosinophils Percent Auto 2.1 % (0-4); Hematocrit 38.6 % (37.0-47.0); Hemoglobin 12.9 g/dl (12.0-16.0); Imm Gran Abs Auto 0.02 X10*3/uL (0.00-0.03); Imm Gran Pct Auto 0.2 % (0.0-0.4); Lymphocytes Absolute Auto 2.6 X10*3/uL (1.2-4.9); Lymphocytes Percent Auto 27.9 % (20-40); Mean Corpuscular HGB Conc 33.4 g/dl (31.0-35.0); Mean Corpuscular Hemoglobin 27.4 pg (27.0-33.0); Mean Corpuscular Volume 82.1 fL (80.0-98.0); Mean Platelet Volume 10.8 fL (9.4-12.3); Monocytes Absolute Auto 0.6 X10*3/uL (0.1-1.2); Monocytes Percent Auto 5.9 % (2-11); Neutrophils Absolute Auto 5.9 x10*3/uL (2.0-8.3); Neutrophils Percent Auto 62.7 % (45-73); Platelet Count 308 X10*3/uL (160-400); Red Cell Distribution Width 15.9 % (11.0-16.0); White Blood Count 9.4 X10*3/uL (4.8-10.8)
[2024-01-26 14:16] LABS: Ammonia 28 umol/L (13-55)
[2024-01-26 14:23] LABS: Alanine Aminotransferase 10 U/L (0-31); Albumin Level 4.3 g/dL (3.5-5.0); Alkaline Phosphatase 104 U/L (39-117); Anion Gap 13 (12-20); Aspartate Amino Transferase 22 U/L (5-31); Bilirubin Direct 0.2 mg/dL (0.0-0.5); Bilirubin Total 0.4 mg/dL (0.0-1.0); Blood Urea Nitrogen 9 mg/dL (9-16); Calcium 11.6 mg/dL (8.4-10.2); Carbon Dioxide 31 mmol/L (22-29); Chloride 102 mmol/L (96-108); Creatinine Clr Calc Pharmacy 54.5; Estimated Glomerular Filt Rate 47; Glucose Random 96 mg/dL (60-115); Lipase 12 U/L (8-78); Potassium 3.8 mmol/L (3.3-5.1); Sodium 142 mmol/L (135-145); Total Protein 8.5 g/dL (6.5-8.0)
[2024-01-26 14:33] LABS: Troponin-I High Sensitivity < 2.7 ng/L (<3.5-17.0)
[2024-01-26] MEDS: iohexoL 350 MG/ML 100 ML INFUS..BTL IV (14:57)
[2024-01-26 16:00] VITALS: BP 131/69; PULSE 68; RESP 20; TEMP 36.7; O2SAT 96
[2024-01-26] MEDS: Magnesium Hydrox/Alum Hydrox 30 ML ORAL.SUSP 15 ML PO (16:45)
[2024-01-26] MEDS: 0.9 % Sodium Chloride 1,000 ML 999 ML IV (16:45)
[2024-01-26 18:34] VITALS: BP 91/61; PULSE 56; RESP 16; TEMP 36.6; O2SAT 91
[2024-01-26 19:16] VITALS: BP 113/62; PULSE 65; RESP 17; TEMP 36.6; O2SAT 94
[2024-01-26 20:14] LABS: Appearance Urine Clear; Color Urine Yellow; Glucose Urine UA Negative (Negative); Leukocyte Esterase Urine Negative (Negative); Nitrite Urine Negative (Negative); PH 5.5 (5.0-9.0); Specific Gravity - Urine >= 1.030 (1.005-1.025); Urine Blood Negative (Negative); Urine Ketones Negative (Negative); Urine Protein Negative (Neg-Trace)
== END 2024-01-26 20:48 | disposition home or self-care (01) ==
PROVIDERS: Physician Assistant Medical; Registered Nurse Emergency; Emergency Provider Emergency Medicine; PCP Nurse Practitioner Primary Care
DX: R10.13 Epigastric pain (principal); R06.02 Shortness of breath; E78.00 Pure hypercholesterolemia, unspecified; J44.9 Chronic obstructive pulmonary disease, unspecified; R68.81 Early satiety; Z79.02 Long term (current) use of antithrombotics/antiplatelets; Z79.899 Other long term (current) drug therapy
CPT/HCPCS: 36415; 74177; 80048; 80076; 81003; 82140; 82550; 83690; 84484; 85025; 96360; 96361; 99284; Q9967

== ENCOUNTER → 2024-02-14 13:48 | Outpatient (REF) | payer MEDICAID, SELFPAY ==
--- NOTE | ~2024-02-14 | NM_ITS ---
EXAMINATION: PLANAR AND SPECT/CT LIVER/SPLEEN SCAN CLINICAL INFORMATION: 59-year-old female found to have 1 cm mass in the tail of the pancreas on recent MRI of the abdomen and subsequently confirmed with CT scan of the abdomen and pelvis done on 11/19/2023 and 01/26/2024 respectively. This was thought to be probable splenule. A sulfur colloid scan is requested. COMPARISON: CT of the abdomen and pelvis done on 02/09/2017, 11/28/2022, 02/19/2023, MRI of the abdomen done on 11/19/2023 and most recent prior CT of the abdomen and pelvis done on 01/26/2024. TECHNIQUE: Multiple gamma scintillation camera images of the liver and spleen were performed following the intravenous administration of 5 mCi Tc-99m Sulfur Colloid. Additional SPECT images of the abdomen were also obtained. Single photon emission tomography (SPECT) of the abdomen was performed using a hybrid SPECT/CT scanner acquiring 120 projections of 25 seconds each over 360 degrees using a noncircular orbit and an acquisition matrix of [id number]. Transverse, coronal and sagittal projections and a cine volume were reconstructed. Nondiagnostic CT images were obtained for attenuation correction and localization. DLP: 98 mGy-cm. FINDINGS: PLANAR IMAGES: The liver is normal in size, shape, and position. There is homogeneous distribution of activity within the liver. No focal abnormalities are noted. The spleen is normal in size, shape and position. Intensity of the spleen compared to the liver is normal, with the spleen slightly less intense than the liver. Very faint bone marrow activity is visualized, and this is physiological. SPECT IMAGES: The index 1 cm circumscribed oval-shaped nodule seen at the tail of the pancreas shows tracer avidity, consistent with ectopic splenic tissue. 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 The liver is normal in size, shape and position. There is homogeneous distribution of activity within the liver with no abnormal foci of increased or decreased activity present. The spleen is also normal in size and shape and is homogeneous. Faint bone marrow activity is visualized and this is physiological. CT IMAGES: Solitary hyperdense approximately 1 cm focal lesion seen along the posterior superior cortex of the right kidney (2:29) is most consistent with a hemorrhagic/hyperdense cyst. NM/NM liver SPECT IMPRESSION: * The index 1 cm circumscribed oval-shaped nodule seen at the tail of the pancreas shows tracer avidity consistent with ectopic splenic tissue. * Incidental note is made of 1 cm hyperdense/hemorrhagic cyst at the superior pole of the right kidney. * Otherwise unremarkable planar and SPECT radionuclide scan of the liver and spleen.
== END ==
LOC: HO.NUCMED 13:48
PROVIDERS: PCP Nurse Practitioner Primary Care; Visit Provider Internal Medicine Gastroenterology
DX: R93.89 Abnormal findings on diagnostic imaging of other specified body structures (principal)
CPT/HCPCS: 78803; A9541

== ENCOUNTER 2024-05-02 14:49 | Outpatient (REF) | payer MEDICAID, SELFPAY ==
--- NOTE | ~2024-05-02 | XR_ITS ---
EXAMINATION: XR KNEE, RIGHT CLINICAL INFORMATION: Sprain of right knee. Moderate effusion. COMPARISON: None available. TECHNIQUE: Four views of the right knee. FINDINGS: There is an area of mixed sclerotic density and lucency in the lateral aspect of the lateral plateau. Possible slight articular depression and/or subchondral irregularity. This extends over an area measuring approximately 2.2 cm transverse and 2.5 cm AP. The medial compartment is normal. Evaluation of the patellofemoral compartment is limited as there is no patella view. No definite arthrosis. There is a moderate joint effusion. XR/XR knee RT 4V IMPRESSION: 1. Abnormality of the lateral aspect of the lateral plateau. This likely reflects an osteochondral lesion perhaps related to evolving osteochondral fracture possibly insufficiency fracture. Spontaneous osteonecrosis of the knee with slight articular collapse could also have this appearance. This could be best further evaluated with MRI if felt clinically necessary. 2. Moderate joint effusion. Electronically signed by: Sarwat Manzo MD 05/09/2024 07:06 AM EDT RP
[2024-05-02 16:36] LABS: Alanine Aminotransferase 7 U/L (0-31); Alkaline Phosphatase 102 U/L (39-117); Anion Gap 10 (12-20); Aspartate Amino Transferase 12 U/L (5-31); Bilirubin Direct 0.1 mg/dL (0.0-0.5); Bilirubin Total 0.4 mg/dL (0.0-1.0); Blood Urea Nitrogen 15 mg/dL (9-16); Calcium 10.8 mg/dL (8.4-10.2); Carbon Dioxide 32 mmol/L (22-29); Chloride 101 mmol/L (96-108); Cholesterol 216 mg/dL (<200); Estimated Glomerular Filt Rate 39; Glucose Random 85 mg/dL (60-115); HDL Cholesterol 36 mg/dL (>40); LDL Cholesterol Calculated 123 mg/dL (<100); Potassium 3.9 mmol/L (3.3-5.1); Sodium 139 mmol/L (135-145); Triglycerides 286 mg/dL (<150)
== END 2024-05-02 14:50 | disposition home or self-care (01) ==
LOC: HO.HHCL 14:49
PROVIDERS: Referring Provider Internal Medicine Geriatric Medicine; Visit Provider Nurse Practitioner Primary Care
DX: S83.91XD Sprain of unspecified site of right knee, subsequent encounter (principal); B18.2 Chronic viral hepatitis C; E78.2 Mixed hyperlipidemia; M25.561 Pain in right knee
CPT/HCPCS: 36415; 73564; 80048; 80061; 80076

== ENCOUNTER 2024-05-06 13:15 | Outpatient (AMB) | payer MEDICAID, SELFPAY ==
[2024-05-06 13:18] VITALS: BP 62/42; PULSE 96; O2SAT 97; BMI 30.4
--- NOTE | 2024-05-06 13:18 | MHC.OFFVIS ---
Vital Signs 05/06/24 13:18 Height 5 ft 5 in Weight 182 lb 15.739 oz BMI 30.4 BP 62/42 L Blood Pressure Location Lt brachial Position Sitting Pulse 96 Pulse Source Doppler Pulse Oximetry (%) 97 Oxygen Delivery Method Room Air Intake Visit Reasons: copd Allergies codeine Allergy (Severe, Verified 05/06/24 13:24) Anaphylaxis aspirin Allergy (Mild, Verified 05/06/24 13:24) Hives Penicillins [PENICILLINS] Allergy (Mild, Verified 05/06/24 13:24) HIVES Sulfa (Sulfonamide Antibiotics) Allergy (Mild, Verified 05/06/24 13:24) Hives sulfamethoxazole [From Bactrim] Allergy (Mild, Verified 05/06/24 13:24) inflamed hives, rash, trimethoprim [From Bactrim] Allergy (Mild, Verified 05/06/24 13:24) inflamed hives, rash, amoxicillin [AMOXICILLIN] Allergy (Unknown, Verified 05/06/24 13:24) HIVES citalopram [From Celexa] Allergy (Verified 05/06/24 13:24) Hives lamotrigine [From Lamictal] Allergy (Verified 05/06/24 13:24) Hives morphine Adverse Reaction (Mild, Verified 05/06/24 13:24) Itching haloperidol [From Haldol] Adverse Reaction (Verified 05/06/24 13:24) Angioedema HPI HPI copd: Details: ? 59-year-old lady, active 40+ pack-year smoker, followed for COPD, pulmonary nodules and dyspnea on exertion.? She continues to use Stiolto, Flovent, duo nebs, theophylline 400, and albuterol MDI/nebs with suboptimal control of her symptoms.? Patient is also following up with cardiology for cardiac component.? She was not able to complete cardiopulmonary exercise testing.? Her pulmonary function test shows some mild COPD that does not fully explain her dyspnea symptoms. Her CT chest shows some emphysema. Her sleep study showed underlying mild wet obstructive sleep apnea, she was started on CPAP, however she is suboptimally compliant with her CPAP therapy. She denies acute exacerbations. [facility] Medical History (Updated 05/06/24 @ 13:37 by Everton Stephens MD) COVID-19 vaccine series completed Bipolar disorder Chronic pain syndrome Disc degeneration, lumbar Spondylosis 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 Chronic constipation Deviated septum Emphysema lung Adenomatous colon polyp Acid reflux Surgical History History of esophagogastroduodenoscopy (EGD) Hx of colonoscopy Family History Father No problems noted. Mother No problems noted. Social History Household Members: Children Alcohol intake: never Patient Tobacco Use Status: Former Tobacco user Tobacco use type: Cigarette Current occupational status: unemployed Review of Systems Const Denies daytime sleepiness, Denies excessive sweating, Denies fatigue, Denies fever(s), Denies lethargy, Denies malaise, Denies night sweats, Denies snoring and Denies weight loss Eyes Denies blurry vision and Denies itchy eyes ENT Denies nasal congestion, Denies post nasal drip, Denies sinus pain, Denies sinus pressure and Denies other ( Thrush) Card Denies chest pain, Denies pedal edema, Denies dyspnea, Reports dyspnea on exertion, Denies orthopnea and Denies paroxysmal nocturnal dyspnea Resp Denies cough, Denies hemoptysis, Denies excessive phlegm production, Denies dyspnea, Reports dyspnea on exertion, Denies snoring and Denies wheezing GI Denies abdominal pain and Denies heartburn Musc Denies myalgias, Denies arthralgias and Denies joint swelling Skin/Breast Denies rash Neuro Denies memory loss and Denies seizure-like activity Psych Denies abnormal sleep pattern, Denies anxiety and Denies memory loss Endo Denies excessive sweating, Denies fatigue and Denies heat intolerance Win/Lymph Denies easy bruising Aller/Immun Denies itchy eyes, Denies seasonal rhinorrhea and Denies wheezing Physical Exam Vital Signs: Last Vital Signs Pulse 96 05/06/24 13:18 BP 62/42 L 05/06/24 13:18 Pulse Ox 97 05/06/24 13:18 Oxygen Delivery Method Room Air 05/06/24 13:18 BMI result Body Mass Index 30.4 Const General: no acute distress and alert Nutritional Appearance: obese Orientation/consciousness: Other orientation findings ( oriented) HEENT Head: Yes atraumatic Eyes General: appearance normal, both eyes and all related structures Sclerae: sclerae normal EOM: EOMs intact bilaterally Neck Neck: Yes supple Lymphatic: no lymphadenopathy noted Resp Effort & Inspection: normal respiratory effort and no use of accessory muscles Auscultation: clear to auscultation bilaterally Cardio Rate: regular rate Rhythm: regular rhythm Heart sounds: no gallops, no murmurs and no rubs Skin General skin exam: other ( warm) Extrem General: No clubbing, No cyanosis and No edema Assessment & Plan Assessment & Plan (1) FILIPE (obstructive sleep apnea): Comment: COPD, FILIPE Code(s): G47.33 - Obstructive sleep apnea (adult) (pediatric) Category: Medical Plan: Underlying moderate obstructive sleep apnea suboptimally controlled as patient is not fully compliant with her CPAP therapy. Patient has been advised to be more compliant with her CPAP therapy. (2) COPD with acute exacerbation: Code(s): J44.1 - Chronic obstructive pulmonary disease with (acute) exacerbation Category: Medical Plan: Reasonable control on underlying regimen of Stiolto, Flovent, duo nebs, theophylline, and albuterol MDI. Continue current regimen. (3) Personal history of nicotine dependence: Code(s): Z87.891 - Personal history of nicotine dependence Category: Medical Plan: Lung cancer screening CT chest ordered. Orders: Orders CT lung screening 08/05/24 Z87.891 - Personal history of nicotine dependence Medications: Refilled ipratropium-albuterol 0.5 mg-3 mg(2.5 mg base)/3 mL 3 mL inhalation Q6H 30 days PRN 360 mL 6RF for wheezing Z87.891 - Personal history of nicotine dependence Coding Level of Care Code Est Pt Level 4 (30134) Diagnoses FILIPE (obstructive sleep apnea) G47.33 COPD with acute exacerbation J44.1 Personal history of nicotine dependence Z87.891
== END 2024-05-06 13:35 | disposition home or self-care (01) ==
PROVIDERS: PCP Nurse Practitioner Primary Care; Referring Provider Nurse Practitioner Primary Care; Visit Provider Internal Medicine Pulmonary Disease
DX: G47.33 Obstructive sleep apnea (adult) (pediatric) (principal); J44.1 Chronic obstructive pulmonary disease with (acute) exacerbation; Z87.891 Personal history of nicotine dependence
CPT/HCPCS: 99214

== ENCOUNTER → 2024-05-06 13:15 | Outpatient (BNVA) | payer MEDICAID, SELFPAY | PROVIDERS: PCP Nurse Practitioner Primary Care; Visit Provider Internal Medicine Pulmonary Disease | DX: J44.1 Chronic obstructive pulmonary disease with (acute) exacerbation (principal); G47.33 Obstructive sleep apnea (adult) (pediatric); Z87.891 Personal history of nicotine dependence; Z99.89 Dependence on other enabling machines and devices; Z91.148 Patient's other noncompliance with medication regimen for other reason | CPT/HCPCS: 99212 ==

== ENCOUNTER 2024-06-09 12:55 | Outpatient (REF) | payer MEDICAID, SELFPAY ==
--- NOTE | ~2024-06-09 | MR_ITS ---
EXAMINATION: MR KNEE WITHOUT CONTRAST, RIGHT CLINICAL INFORMATION: Pain. COMPARISON: X-ray of the right knee April 2024. TECHNIQUE: MRI of the knee without contrast was performed using routine sequences on a high-field scanner. FINDINGS: MENISCI: Medial Meniscus: Intact Lateral Meniscus: Intact LIGAMENTS: Cruciate: Intact Collateral: Intact EXTENSOR MECHANISM: Intact ARTICULAR CARTILAGE/BONE: Patellofemoral Compartment: There are superficial fissures involving the medial facet and lateral facet of the patella. Minimal cartilage heterogeneity of the sulcus of the trochlea. Overall mild patellofemoral arthrosis. Medial Compartment: Minimal marginal osteophytes. Minimal cartilage heterogeneity along the lateral aspect of the tibial articular surface. Overall minimal arthrosis. Lateral Compartment: There is a nondisplaced minimally depressed osteochondral fracture of the lateral plateau. The fracture extends over approximately 2.8 cm AP, 1.3 cm transverse and extends 7 mm deep to the articular surface. There is variable joint depression more prominent laterally than medially. Medially, there is proximal 1 mm of joint depression whereas laterally, there is up to 3 mm of joint depression. This results in slight lateral sloping of the lateral articular surface. There is prominent surrounding marrow edema. No additional fractures. JOINT FLUID AND BURSAE: Mild joint effusion and synovitis with a slightly complex moderate sized Fry's cyst. MR/MR knee RT wo con IMPRESSION: 1. Mildly depressed osteochondral fracture/tibial plateau fracture of the lateral plateau. 2. Mild patellofemoral arthrosis. 3. Minimal medial compartment arthrosis. Joint effusion and Fry's cyst. Electronically signed by: Sarwat Manzo MD 06/09/2024 03:40 PM EDT
== END 2024-06-09 12:56 | disposition home or self-care (01) ==
LOC: HO.MRI 12:55
PROVIDERS: PCP Nurse Practitioner Primary Care; Visit Provider Nurse Practitioner Primary Care
DX: M89.9 Disorder of bone, unspecified (principal); M94.9 Disorder of cartilage, unspecified; M25.561 Pain in right knee
CPT/HCPCS: 73721

== ENCOUNTER 2024-06-16 13:33 | Outpatient (AMB) | payer MEDICAID, SELFPAY ==
--- NOTE | 2024-06-16 13:34 | A.OFFVIS_ITS ---
Vital Signs 06/16/24 13:39 Height 5 ft 5 in Weight 182 lb BMI 30.3 BP 92/56 L Blood Pressure Location Rt radial Position Sitting Respiration 16 Pulse 78 Pulse Source Pulse Oximeter Pulse Oximetry (%) 94 Oxygen Delivery Method Room Air Intake Visit Reasons: Spondylosis of Lumbar Spine Intake Note: Patient comes in for follow up. Reports pain 9/10. Allergies codeine Allergy (Severe, Verified 06/16/24 13:39) Anaphylaxis aspirin Allergy (Mild, Verified 06/16/24 13:39) Hives Penicillins [PENICILLINS] Allergy (Mild, Verified 06/16/24 13:39) HIVES Sulfa (Sulfonamide Antibiotics) Allergy (Mild, Verified 06/16/24 13:39) Hives sulfamethoxazole [From Bactrim] Allergy (Mild, Verified 06/16/24 13:39) inflamed hives, rash, trimethoprim [From Bactrim] Allergy (Mild, Verified 06/16/24 13:39) inflamed hives, rash, amoxicillin [AMOXICILLIN] Allergy (Unknown, Verified 06/16/24 13:39) HIVES citalopram [From Celexa] Allergy (Verified 06/16/24 13:39) Hives lamotrigine [From Lamictal] Allergy (Verified 06/16/24 13:39) Hives morphine Adverse Reaction (Mild, Verified 06/16/24 13:39) Itching haloperidol [From Haldol] Adverse Reaction (Verified 06/16/24 13:39) Angioedema HPI Comments Details: Cherri is back in my office with complains on severe pain 9/10 in the back. She today change the nature of complaints. She now complains on pain in the projection of the lower thoracic upper lumbar spine. There is tenderness on palpation on physical exam of this patient in the projection of the approximately T12-L1 vertebra. Loading test is positive as well. Valsalva maneuver is negative for pain increase. The patient reports that the pain is unbearable. I will schedule her for diagnostic medical branch block T11-T12- L1. The procedure will be bilateral. We can address this pain after diagnostic injection with sprint PNS versus radiofrequency ablation. Prior: bilateral L3-L4 L5 radiofrequency ablation on 09/13/2021. She reports that pain in the back is very strong. She reported that pain relief lasted no more than few weeks. She reports that pain now is back and is stronger than it was before the radiofrequency ablation. Before radiofrequency ablation she received diagnostic medial branch block which provided 95% pain improvement for the 10 hours after the procedure. She was offered to come on or after February [id number] we will not be able to perform any procedures to address her lower back pain. complains on pain in lower back.? She also complains on pain in the shoulders and neck and lower back pain and pain going down to the left lower extremity she reports that this problem started in 2017 she reports that her problem comes from degenerative disc disease of lumbar spine.?physical therapy 1 year ago chiropractic manipulations 1 year ago were absolutely useless for her pain.? She had 4 months of continues physical therapy and chiropractic manipulation she reports no? pain relief whatsoever. MRI of lumbar spine dictation available as below. She went for bilateral L3-L4 dorsal ramus L5 medial branch block diagnostic.? She received bupivacaine at each of the locations no more than 1 cc.? She reports today 9-10 hours of 85% pain relief post injection.? After that pain gradually went up.? [facility] Medical History (Updated 06/16/24 @ 16:12 by Darren Marsh MD) COVID-19 vaccine series completed Bipolar disorder Chronic pain syndrome Disc degeneration, lumbar Spondylosis 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 Chronic constipation Deviated septum Emphysema lung Adenomatous colon polyp Acid reflux Surgical History History of esophagogastroduodenoscopy (EGD) Hx of colonoscopy Family History Father No problems noted. Mother No problems noted. Social History Household Members: Children Alcohol intake: never Patient Tobacco Use Status: Former Tobacco user Tobacco use type: Cigarette Current occupational status: unemployed Review of Systems Const All systems reviewed & are unremarkable except as noted in HPI and below Physical Exam Vital Signs: Last Vital Signs Pulse 78 06/16/24 13:39 Resp 16 06/16/24 13:39 BP 92/56 L 06/16/24 13:39 Pulse Ox 94 06/16/24 13:39 Oxygen Delivery Method Room Air 06/16/24 13:39 BMI result Body Mass Index 30.3 Const General: cooperative, comfortable, no acute distress, well developed, alert and awake Eyes Pupils: Equal, round and reactive pupils present EOM: EOMs intact bilaterally Resp Effort & Inspection: normal respiratory effort, able to speak in complete sentences, normal respiratory pattern, no audible wheezes and no cough Cardio Jugular venous distension: no JVD Back/Spine/Pelvis Other: Able to stand on bilateral tiptoes in bilateral heels demonstrating normal strength of bilateral lower extremities. Flexing forward alleviates her pain. Flexing backwards aggravates her pain. Flexing sideways aggravates her pain. Loading test aggravates her pain. SLR does not increase her pain bilaterally. Slump test is negative bilateral. Naif test is negative bilaterally. Denies incontinence with urine and/or stool denies urinary retention denies Valsalva maneuver positive for pain increase. Admits tenderness on palpation in the projection of T11-T12 L1-L2 vertebra. Loading test is positive for pain in this area. Neuro Cranial nerves: Yes Equal, round and reactive pupils present Assessment & Plan Assessment & Plan (1) Spondylosis 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: Code(s): M47.817 - Spondylosis without myelopathy or radiculopathy, lumbosacral region Category: Medical (2) Disc degeneration, lumbar: Code(s): M51.36 - Other intervertebral disc degeneration, lumbar region Category: Medical (3) Chronic pain syndrome: Code(s): G89.4 - Chronic pain syndrome Category: Medical Plan On the MRI performed on 2020 she has L5-S1 Modic type changes. However she presented today with complains as above in the upper lumbar lower thoracic spine. I suspect another symptoms of generalized spondylosis of the lumbar spine. I will schedule her for diagnostic bilateral medial branch block T11-T12 L1. I will see this patient in the office after the injection. Coding Level of Care Code Est Pt Level 3 (16280) Diagnoses Spondylosis 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 M47.817 Disc degeneration, lumbar M51.36 Chronic pain syndrome G89.4
[2024-06-16 13:39] VITALS: BP 92/56; PULSE 78; RESP 16; O2SAT 94; BMI 30.3
== END 2024-06-16 14:24 | disposition home or self-care (01) ==
PROVIDERS: PCP Nurse Practitioner Primary Care; Visit Provider Anesthesiology
DX: M47.817 Spondylosis without myelopathy or radiculopathy, lumbosacral region (principal); M51.369 Other intervertebral disc degeneration, lumbar region without mention of lumbar back pain or lower extremity pain; G89.4 Chronic pain syndrome
CPT/HCPCS: 99213

== ENCOUNTER → 2024-06-16 13:33 | Outpatient (BNVA) | payer MEDICAID, SELFPAY | PROVIDERS: PCP Nurse Practitioner Primary Care; Visit Provider Anesthesiology | DX: M47.817 Spondylosis without myelopathy or radiculopathy, lumbosacral region (principal); M51.360 Other intervertebral disc degeneration, lumbar region with discogenic back pain only; G89.4 Chronic pain syndrome | CPT/HCPCS: 99212 ==

== ENCOUNTER 2024-06-19 13:20 | Outpatient (REF) | payer MEDICAID, SELFPAY ==
--- NOTE | ~2024-06-19 | MM_ITS ---
EXAMINATION: MM SCREENING DIGITAL BREAST TOMOSYNTHESIS, BILATERAL CLINICAL INFORMATION: Screening. Asymptomatic. COMPARISON: Mammography: Comparison is made with available priors TECHNIQUE: Digital breast mammography with tomosynthesis is performed in both the craniocaudal and mediolateral oblique views along with computer-aided detection (CAD). FINDINGS: The breasts are heterogeneously dense, which may obscure small masses (ACR BI-RADS breast composition Category c). There are no significant masses, abnormal calcifications, or other abnormalities. MM/MM tomosynthesis screening BI IMPRESSION: No mammographic evidence of malignancy. ASSESSMENT: BI-RADS BI-RADS 1 - Negative RECOMMENDATION: Routine annual mammography screening. 1 year F/U This examination should not preclude the clinical evaluation of a suspicious palpable abnormality. This patient's information was entered into a reminder system with a target due date for their next mammogram. Electronically signed by: Sally Hernandez DO 06/28/2024 10:30 AM EDT
== END 2024-06-19 13:21 | disposition home or self-care (01) ==
LOC: HO.MAMMO 13:20
PROVIDERS: PCP Nurse Practitioner Primary Care; Visit Provider Nurse Practitioner Primary Care
DX: Z12.31 Encounter for screening mammogram for malignant neoplasm of breast (principal)
CPT/HCPCS: 77063; 77067

== ENCOUNTER → 2024-06-19 13:45 | Outpatient (BNV) | payer MEDICAID, SELFPAY | PROVIDERS: PCP Nurse Practitioner Primary Care; Visit Provider Internal Medicine | DX: Z12.31 Encounter for screening mammogram for malignant neoplasm of breast (principal) | CPT/HCPCS: 77063; 77067 ==

== ENCOUNTER 2024-07-23 15:01 | Outpatient (AMB) | payer MEDICAID, SELFPAY ==
[2024-07-23 15:09] VITALS: BMI 30.3
--- NOTE | 2024-07-23 15:09 | A.OFFVIS_ITS ---
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 MRI done. Patient reports she injured her knee on 05/03/24. She is having a difficult time standing and walking, using a walker to aid with ambulation. Patient will need Allergies codeine Allergy (Severe, Verified 07/23/24 15:23) Anaphylaxis aspirin Allergy (Mild, Verified 07/23/24 15:23) Hives Penicillins [PENICILLINS] Allergy (Mild, Verified 07/23/24 15:23) HIVES Sulfa (Sulfonamide Antibiotics) Allergy (Mild, Verified 07/23/24 15:23) Hives sulfamethoxazole [From Bactrim] Allergy (Mild, Verified 07/23/24 15:23) inflamed hives, rash, trimethoprim [From Bactrim] Allergy (Mild, Verified 07/23/24 15:23) inflamed hives, rash, amoxicillin [AMOXICILLIN] Allergy (Unknown, Verified 07/23/24 15:23) HIVES citalopram [From Celexa] Allergy (Verified 07/23/24 15:23) Hives lamotrigine [From Lamictal] Allergy (Verified 07/23/24 15:23) Hives morphine Adverse Reaction (Mild, Verified 07/23/24 15:23) Itching haloperidol [From Haldol] Adverse Reaction (Verified 07/23/24 15:23) Angioedema Medication List - Last Reviewed 07/23/24 by LUNA Payne albuterol sulfate 90 mcg/actuation 2 puffs PO Q4-6H PRN bisacodyl (Dulcolax (bisacodyl)) 10 mg NV DAILY PRN buprenorphine-naloxone 12-3 mg (Suboxone) 30 mg sublingual DAILY clonazepam (Klonopin) 2 mg PO TID clonidine HCl 3 tabs PO BEDTIME cyclobenzaprine 5 mg PO ONCE PRN dextroamphetamine-amphetamine 20 mg 20 mg PO DAILY@1400 dextroamphetamine-amphetamine 30 mg ER (Adderall XR) 30 mg PO DAILY dicyclomine 20 mg PO TID PRN 30 days docusate sodium (Colace) 200 mg (2 x 100 mg) PO BEDTIME 30 days ergocalciferol (vitamin D2) (Drisdol) 1,250 mcg PO QWEEK folic acid 1 mg PO DAILY furosemide (Lasix) 20 mg PO QAM ipratropium-albuterol 0.5 mg-3 mg(2.5 mg base)/3 mL 3 mL inhalation Q6H PRN 30 days lubiprostone 8 mcg PO BID 30 days methylcellulose (laxative) (Citrucel) 500 mg PO BID 30 days metoprolol tartrate 12.5 mg PO mometasone 200 mcg/actuation (Asmanex HFA) 2 puffs inhalation BID polyethylene glycol 3350 (Miralax) 17 grams PO BID 60 days pregabalin 75 mg PO TID rosuvastatin 10 mg PO QAM sertraline 2 tabs PO QAM simethicone (Gas-X Extra Strength) 125 mg PO BEDTIME PRN 30 days theophylline ER 400 mg PO QAM tiotropium-olodaterol 2.5-2.5 mcg/actuation (Stiolto Respimat) 2 puffs PO DAILY verapamil ER 120 mg PO QPM ziprasidone HCl (Geodon) 80 mg PO BID zolpidem (Ambien) 10 mg PO BEDTIME PRN HPI HPI 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 She states she was fixing her bed when she slipped and landed with her right knee flexed and behind her left knee. She currently states she has pain in her knee that makes it difficult to stand or ambulate. She has been walking on her leg and using a walker for support. [facility] Medical History (Updated 07/23/24 @ 15:44 by Becca Rodriguez PA-C) COVID-19 vaccine series completed Bipolar disorder Chronic pain syndrome Disc degeneration, lumbar Spondylosis 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 Chronic constipation Deviated septum Emphysema lung Adenomatous colon polyp Acid reflux Surgical History History of esophagogastroduodenoscopy (EGD) Hx of colonoscopy Family History Father No problems noted. Mother No problems noted. Social History Household Members: Children Alcohol intake: never Patient Tobacco Use Status: Former Tobacco user Tobacco use type: Cigarette Current occupational status: unemployed Review of Systems Const All systems reviewed & are unremarkable except as noted in HPI and below Physical Exam Vital Signs: BMI result Body Mass Index 30.3 Const General: cooperative, healthy appearing, comfortable, no acute distress, well developed and alert Orientation/consciousness: patient oriented x3 HEENT Head: Yes normal to inspection, Yes normocephalic and Yes atraumatic Eyes General: appearance normal, both eyes and all related structures Resp Effort & Inspection: normal respiratory effort and able to speak in complete sentences Cardio Rate: regular rate Peripheral pulses: Peripheral pulses 2+ throughout GI Palpation (GI): Soft to palpation Skin Lesions: no lesions Rashes: no rashes Neuro General: patient oriented x3 Extrem Other: Right knee: Skin is intact. No open wound, no joint effusion, no redness. She has mild tenderness over the lateral proximal tibia. She has full ROM. Calf supple, nontender. NVI. Results Reviewed Results Reviewed: MR knee RT wo con IMPRESSION: 1. Mildly depressed osteochondral fracture/tibial plateau fracture of the lateral plateau. 2. Mild patellofemoral arthrosis. 3. Minimal medial compartment arthrosis. Joint effusion and Fry's cyst. Xrays were obtained in the office today and personally reviewed by me of the right knee show stable tibial plateau fracture without collapse. Assessment & Plan Assessment & Plan (1) Tibial plateau fracture, right: Code(s): S82.141A - Displaced bicondylar fracture of right tibia, initial encounter for closed fracture Category: Medical Plan She will ambulate partial weight bearing with a walker for 6 weeks to maintain stabilization of fracture and also allow for healing of the bony edema. She will perform ROM and quad strengthening exercises. I would like to see her back in 6 weeks with x-rays, sooner if needed. Orders: Orders XR knee RT 2V Today M25.569 - Pain in unspecified knee Patient Instructions: Scribed for Becca Rodriguez PA-C, by Eze Mclaughlin medical staff services coordinator, on 07/23/2024 at 3:00 PM EST.? I, Becca Rodriguez PA-C, have personally reviewed and agree with the information entered by the scribe. Coding Level of Care Code New Pt Level 3 (06691) Complex EM visit Add On G2211 Diagnoses Tibial plateau fracture, right S82.141A
== END 2024-07-23 15:42 | disposition home or self-care (01) ==
PROVIDERS: PCP Nurse Practitioner Primary Care; Visit Provider Physician Assistant
DX: S82.141A Displaced bicondylar fracture of right tibia, initial encounter for closed fracture (principal)
CPT/HCPCS: 99203

== ENCOUNTER 2024-07-23 15:01 | Outpatient (REF) | payer MEDICAID, SELFPAY ==
--- NOTE | ~2024-07-23 | XR_ITS ---
EXAMINATION: XR KNEE, RIGHT CLINICAL INFORMATION: M25.569 - Pain in unspecified knee COMPARISON: Right knee series May 02, 2024. MRI right knee 06/09/2024 TECHNIQUE: 2 views of the right knee FINDINGS: Minimally depressed nondisplaced fracture of the lateral aspect of the lateral plateau unchanged. Remaining bones joints and soft tissues are unremarkable except for small joint effusion.. XR/XR knee RT 2V IMPRESSION: No change in the appearance of the lateral plateau fracture Electronically signed by: Sarwat Manzo MD 07/27/2024 02:05 PM [facility] OLIV[facility]
== END 2024-07-23 15:02 | disposition home or self-care (01) ==
LOC: HO.HOSX 15:01
PROVIDERS: PCP Nurse Practitioner Primary Care; Visit Provider Physician Assistant
DX: M25.561 Pain in right knee (principal); S82.141A Displaced bicondylar fracture of right tibia, initial encounter for closed fracture
CPT/HCPCS: 73560; 99212

== ENCOUNTER → 2024-07-30 08:43 | Outpatient (REF) | payer MEDICAID, SELFPAY ==
--- NOTE | ~2024-07-30 | NM_ITS ---
EXAMINATION: NM RADIONUCLIDE SOLID FOOD GASTRIC EMPTYING 4-HOUR STUDY CLINICAL INFORMATION: Early satiety. COMPARISON: CT of the abdomen and pelvis done on 01/26/2024. Planar and SPECT CT of the liver and spleen done on 02/14/2024. TECHNIQUE: A standard meal consisting of 4 oz of Egg Beaters brand tagged with 720 microcuries Tc-99m Sulfur Colloid, 8 oz water and 2 slices of toast with jelly was administered orally to the patient. Images were obtained using a dual head gamma camera in the anterior and posterior projections over of the stomach immediately post ingestion and at hourly intervals up to 4 hours post ingestion. The anterior and posterior counts at each time interval were averaged using the geometric mean and expressed as percentage of the immediate post ingestion counts. FINDINGS: There is good visualization of activity in the stomach immediately post ingestion. As the study progresses, there is delayed clearance of activity from the stomach and partial visualization of progressively increasing small bowel activity. By the end of the study, there is significant retention noted in the stomach. Retention in the stomach at each time interval was: 1 hour 89% (normal 37%-90%) 2 hours 73% (normal 30%-60%) 3 hours 66% 4 hours 57% (normal 0%-10%) CA/CA gastric emptying study IMPRESSION: Abnormal grade 4 delayed 4-hour solid food gastric emptying study. For solid meal, rapid gastric emptying is less than 30% at 60 minutes. Delayed gastric emptying criteria is more than 60% remaining at 120 minutes or more than 10% at 240 minutes. The 4-hour value is the best discriminator of a normal or abnormal result). Gastric emptying study grading per JNMT Consensus Recommendations in 2008 (https://tech.snmjournals.org/content/36/44) Grade 1 (mild retention): 11-20% at 4h Grade 2 (moderate retention): 21-35% at 4h Grade 3 (severe retention): 36-50% at 4h Grade 4 (very severe retention): >50% retention at 4h Electronically signed by: Fede Fuchs MD 07/31/2024 03:08 PM [facility]
== END ==
LOC: HO.NUCMED 08:43
PROVIDERS: PCP Nurse Practitioner Primary Care; Visit Provider Internal Medicine Gastroenterology
DX: R68.81 Early satiety (principal)
CPT/HCPCS: 78264; A9541

== ENCOUNTER → 2024-08-12 08:15 | Outpatient (REF) | payer MEDICAID, SELFPAY ==
--- NOTE | 2024-08-12 08:18 | CA_ITS ---
Transthoracic Echocardiogram Patient (Last, First, Middle): Cherri Nash J Gender: Female Date of : 1965 Age: 59 Procedure Date: 08/12/2024 Procedure Type: Transthoracic Echocardiogram Location: OP Height: 165.1 cm Weight: 88.45 kg BSA: 1.96 m2 Heart Rate: 71 bpm BP: 134 / 80 mmHg Deodorizer Operator: Referring MD: Jennifer Sultana LICENSED OCCUPATIONAL THERAPIST Symptoms: I10 HTN I65.29 CAR ART STENOSIS R06.02 Study Quality: Adequate ECG Rhythm: Sinus Conclusions: - The left ventricular systolic function is normal. The visually estimated ejection fraction is between 55-60%. - No obvious valvular pathology seen on this study. Findings Left Ventricle Normal left ventricular cavity size. There is mildly increased left ventricular wall thickness. The left ventricular systolic function is normal. The visually estimated ejection fraction is between 55-60%. There is no evidence of regional wall motion abnormalities. Diastolic function is normal for age. Right Ventricle Normal right ventricular cavity size and systolic function. Atria Both atria are normal in size. Aortic Valve The aortic valve was not well visualized. There is no aortic valve stenosis. There is no aortic valve regurgitation. Mitral Valve The mitral valve appears normal. There is trace mitral valve regurgitation. There is no mitral valve stenosis. Pulmonic Valve The pulmonic valve is likely normal. Tricuspid Valve There is trace tricuspid valve regurgitation. There is no evidence of pulmonary hypertension. Great Vessels The aorta was not well visualized. The sinuses of valsalva is normal in size. Venous The inferior vena cava is normal in size and collapses greater than 50% with inspiration. Pericardium/Pleural There is no evidence of pericardial effusion. Prior Study Comparison No significant change compared to prior study dated: 05/08/2023. Recommendations, Care & Conclusions No obvious valvular pathology seen on this study. Measurements 2D Linear Measurements IVSd: 1.05 0.6-0.9/0.6-1.0 cm LVIDd: 4.72 3.9-5.3/4.2-5.9 cm LVIDd Index: 2.41 2.4-3.2/2.2-3.1 cm/m2 LVIDs: 2.77 2.0-3.6 cm LVPWd: 1.06 0.7-1.1 cm LA Diam: 3.60 2.7-3.8/3.0-4.0 cm LAIDs Index: 1.84 1.5-2.3 cm/m2 LV Mass: 222.00 67-162/88-224 g LV Mass Index: 113.26 43-95/49-115 g/m2 LVOT Diam: 2.00 3.0+(-)1.3 cm 2D Systolic Function EF 4C: 53.70 >55% EF 2C: 57.00 >55% EF BiP: 53.00 >55% Mitral Valve MV Pk E: 0.57 MV PK A: 0.59 MV Decel Time: 287.00 E/A: 1.00 E'Lateral: 9.36 E'Medial: 8.81 E/E' Med: 6.50 E/E' Lat: 6.10 PHT: 84.00 MVA PHT: 2.62 Decel [place]: 2.00 Aortic Valve AoV Pk Tr: 1.05 AoV Mn Tr: 0.74 AoV VTI: 0.24 AoV Pk Grad: 4.00 Aov Mn Grad: 3.00 ROSS Cont.VTI: 2.67 LVOT LVOT Pk Tr: 0.93 LVOT Mn Tr: 0.60 LVOT VTI: 0.20 LVOT Pk Grad: 3.00 LVOT Mn Grad: 2.00 LVOT Diam: 2.00 LVOT Area: 3.14 Diastolic Function MV Pk E: 0.57 MV Pk A: 0.59 E/A: 1.00 E'Medial: 8.81 E/E' Med: 6.50 E' Laterial: 9.36 E/E' Lat: 6.10 Right Ventricle TAPSE (mm): 22.80 TVS' Tr: 9.46 Tricuspid Valve TR Pk Tr: 2.27 TR Pk Grad: 21.00 Great Vessels Aorta Sinus of Valsalva: 2.80 2.0-3.5 cm Pulmonary Valve PV Pk Tr: 0.91 Peak PV Grad: 3.00 Updated in Other Vendor System with Status of Final Mike Mcfadden MD electronically signed on 08/12/2024 4:06:11 PM with status of Final
== END ==
LOC: HO.CARD 08:15
PROVIDERS: PCP Nurse Practitioner Primary Care; Visit Provider Nurse Practitioner Family
DX: R06.02 Shortness of breath (principal); I10 Essential (primary) hypertension; R10.84 Generalized abdominal pain; S83.91XD Sprain of unspecified site of right knee, subsequent encounter; Z87.891 Personal history of nicotine dependence
CPT/HCPCS: 71271; 73564; 76700; 93306

== ENCOUNTER → 2024-08-12 08:18 | Outpatient (BNV) | payer MEDICAID, SELFPAY | PROVIDERS: PCP Nurse Practitioner Primary Care; Visit Provider Internal Medicine | DX: R06.02 Shortness of breath (principal); I51.89 Other ill-defined heart diseases | CPT/HCPCS: 93306 ==

== ENCOUNTER 2024-09-02 14:43 | Outpatient (AMB) | payer MEDICAID, SELFPAY ==
--- NOTE | 2024-09-02 14:50 | MHC.OFFVIS ---
Vital Signs 09/02/24 14:52 Weight 183 lb BP 100/52 L Blood Pressure Location Lt brachial Position Sitting Pulse 94 Pulse Source Pulse Oximeter Pulse Oximetry (%) 98 Oxygen Delivery Method Room Air Intake Visit Reasons: COPD Allergies codeine Allergy (Severe, Verified 09/02/24 14:54) Anaphylaxis aspirin Allergy (Mild, Verified 09/02/24 14:54) Hives Penicillins [PENICILLINS] Allergy (Mild, Verified 09/02/24 14:54) HIVES Sulfa (Sulfonamide Antibiotics) Allergy (Mild, Verified 09/02/24 14:54) Hives sulfamethoxazole [From Bactrim] Allergy (Mild, Verified 09/02/24 14:54) inflamed hives, rash, trimethoprim [From Bactrim] Allergy (Mild, Verified 09/02/24 14:54) inflamed hives, rash, amoxicillin [AMOXICILLIN] Allergy (Unknown, Verified 09/02/24 14:54) HIVES citalopram [From Celexa] Allergy (Verified 09/02/24 14:54) Hives lamotrigine [From Lamictal] Allergy (Verified 09/02/24 14:54) Hives morphine Adverse Reaction (Mild, Verified 09/02/24 14:54) Itching haloperidol [From Haldol] Adverse Reaction (Verified 09/02/24 14:54) Angioedema Medication List - Last Reconciled 09/02/24 by Ceci Mendez LPN albuterol sulfate 90 mcg/actuation 2 puffs PO Q4-6H PRN bisacodyl (Dulcolax (bisacodyl)) 10 mg MI DAILY PRN buprenorphine-naloxone 12-3 mg (Suboxone) 30 mg sublingual DAILY clonazepam (Klonopin) 2 mg PO TID clonidine HCl 3 tabs PO BEDTIME cyclobenzaprine 5 mg PO ONCE PRN dextroamphetamine-amphetamine 20 mg 20 mg PO DAILY@1400 dextroamphetamine-amphetamine 30 mg ER (Adderall XR) 30 mg PO DAILY dicyclomine 20 mg PO TID PRN 30 days docusate sodium (Colace) 200 mg (2 x 100 mg) PO BEDTIME 30 days ergocalciferol (vitamin D2) (Drisdol) 1,250 mcg PO QWEEK folic acid 1 mg PO DAILY furosemide (Lasix) 20 mg PO QAM ipratropium-albuterol 0.5 mg-3 mg(2.5 mg base)/3 mL 3 mL inhalation Q6H PRN 30 days lubiprostone 8 mcg PO BID 30 days methylcellulose (laxative) (Citrucel) 500 mg PO BID 30 days metoprolol tartrate 12.5 mg PO mometasone 200 mcg/actuation (Asmanex HFA) 2 puffs inhalation BID polyethylene glycol 3350 (Miralax) 17 grams PO BID 60 days pregabalin 75 mg PO TID rosuvastatin 10 mg PO QAM sertraline 2 tabs PO QAM simethicone (Gas-X Extra Strength) 125 mg PO BEDTIME PRN 30 days theophylline ER 400 mg PO QAM tiotropium-olodaterol 2.5-2.5 mcg/actuation (Stiolto Respimat) 2 puffs PO DAILY verapamil ER 120 mg PO QPM ziprasidone HCl (Geodon) 80 mg PO BID zolpidem (Ambien) 10 mg PO BEDTIME PRN HPI HPI COPD: Details: 59-year-old lady, active 40+ pack-year smoker, followed for COPD, pulmonary nodules and dyspnea on exertion.? She continues to use Stiolto, Flovent, duo nebs, theophylline 400, and albuterol MDI/nebs with suboptimal control of her symptoms.? Patient is also following up with cardiology for cardiac component.? She was not able to complete cardiopulmonary exercise testing.? Her pulmonary function test shows some mild COPD that does not fully explain her dyspnea symptoms. Her lung cancer screening CT chest is pending. Her sleep study showed underlying mild obstructive sleep apnea, she was started on CPAP, and now she states she is more compliant with her therapy with improved symptom control. [facility] Medical History (Updated 07/23/24 @ 15:44 by Becac Rodriguez PA-C) COVID-19 vaccine series completed Bipolar disorder Chronic pain syndrome Disc degeneration, lumbar Spondylosis 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 Chronic constipation Deviated septum Emphysema lung Adenomatous colon polyp Acid reflux Surgical History History of esophagogastroduodenoscopy (EGD) Hx of colonoscopy Family History Father No problems noted. Mother No problems noted. Social History Household Members: Children Alcohol intake: never Patient Tobacco Use Status: Former Tobacco user Tobacco use type: Cigarette Current occupational status: unemployed Review of Systems Const Denies daytime sleepiness, Denies excessive sweating, Denies fatigue, Denies fever(s), Denies lethargy, Denies malaise, Denies night sweats, Denies snoring and Denies weight loss Eyes Denies blurry vision and Denies itchy eyes ENT Denies nasal congestion, Denies post nasal drip, Denies sinus pain, Denies sinus pressure and Denies other ( Thrush) Card Denies chest pain, Denies pedal edema, Denies dyspnea, Denies orthopnea and Denies paroxysmal nocturnal dyspnea Resp Denies cough, Denies hemoptysis, Denies excessive phlegm production, Denies dyspnea, Denies snoring and Denies wheezing GI Denies abdominal pain and Denies heartburn Musc Denies myalgias, Denies arthralgias and Denies joint swelling Skin/Breast Denies rash Neuro Denies memory loss and Denies seizure-like activity Psych Denies abnormal sleep pattern, Denies anxiety and Denies memory loss Endo Denies excessive sweating, Denies fatigue and Denies heat intolerance Win/Lymph Denies easy bruising Aller/Immun Denies itchy eyes, Denies seasonal rhinorrhea and Denies wheezing Physical Exam Vital Signs: Last Vital Signs Pulse 94 09/02/24 14:52 BP 100/52 L 09/02/24 14:52 Pulse Ox 98 09/02/24 14:52 Oxygen Delivery Method Room Air 09/02/24 14:52 Const General: no acute distress and alert Nutritional Appearance: not obese Orientation/consciousness: Other orientation findings ( oriented) HEENT Head: Yes atraumatic Eyes General: appearance normal, both eyes and all related structures Sclerae: sclerae normal EOM: EOMs intact bilaterally Neck Neck: Yes supple Lymphatic: no lymphadenopathy noted Resp Effort & Inspection: normal respiratory effort and no use of accessory muscles Auscultation: clear to auscultation bilaterally Cardio Rate: regular rate Rhythm: regular rhythm Heart sounds: no gallops, no murmurs and no rubs Skin General skin exam: other ( warm) Extrem General: No clubbing, No cyanosis and No edema Assessment & Plan Assessment & Plan (1) COPD with acute exacerbation: Code(s): J44.1 - Chronic obstructive pulmonary disease with (acute) exacerbation Category: Medical Plan: Now with improved compliance with baseline regimen of Stiolto, Flonase, theophylline, duo nebs, and albuterol MDI and with resultant reasonable control of her symptoms. Continue current regimen. (2) FILIPE (obstructive sleep apnea): Comment: COPD, FILIPE Code(s): G47.33 - Obstructive sleep apnea (adult) (pediatric) Category: Medical Plan: Now with improved compliance and improved control. Continue CPAP therapy. (3) Personal history of nicotine dependence: Code(s): Z87.891 - Personal history of nicotine dependence Category: Medical Plan: Lung cancer screening CT chest is pending. Coding Level of Care Code Est Pt Level 4 (97190) Complex EM visit Add On G2211 Diagnoses COPD with acute exacerbation J44.1 FILIPE (obstructive sleep apnea) G47.33 Personal history of nicotine dependence Z87.891
[2024-09-02 14:52] VITALS: BP 100/52; PULSE 94; O2SAT 98
== END 2024-09-02 15:06 | disposition home or self-care (01) ==
PROVIDERS: PCP Nurse Practitioner Primary Care; Visit Provider Internal Medicine Pulmonary Disease
DX: J44.1 Chronic obstructive pulmonary disease with (acute) exacerbation (principal); G47.33 Obstructive sleep apnea (adult) (pediatric); Z87.891 Personal history of nicotine dependence
CPT/HCPCS: 99214

== ENCOUNTER → 2024-09-02 14:43 | Outpatient (BNVA) | payer MEDICAID, SELFPAY | PROVIDERS: PCP Nurse Practitioner Primary Care; Visit Provider Internal Medicine Pulmonary Disease | DX: J44.1 Chronic obstructive pulmonary disease with (acute) exacerbation (principal); G47.33 Obstructive sleep apnea (adult) (pediatric); Z99.89 Dependence on other enabling machines and devices; Z87.891 Personal history of nicotine dependence | CPT/HCPCS: 99212 ==

== ENCOUNTER 2024-09-03 13:02 | Outpatient (AMB) | payer MEDICAID, SELFPAY ==
--- NOTE | 2024-09-03 13:07 | A.OFFVIS_ITS ---
Vital Signs 09/03/24 13:20 Height 5 ft 5 in Weight 183 lb BMI 30.4 Intake Visit Reasons: OV-right knee follow up Intake Note: Cherri is a 59 year old female who presents today with her behavioral health case manager for a follow up of right tibial plateau fx, DOI 05/03/24. Patient reports achy throbbing pain that is worse with cold weather. She has been struggling with at home exercises as her knee is not bending like her knee use to. Allergies codeine Allergy (Severe, Verified 09/03/24 13:20) Anaphylaxis aspirin Allergy (Mild, Verified 09/03/24 13:20) Hives Penicillins [PENICILLINS] Allergy (Mild, Verified 09/03/24 13:20) HIVES Sulfa (Sulfonamide Antibiotics) Allergy (Mild, Verified 09/03/24 13:20) Hives sulfamethoxazole [From Bactrim] Allergy (Mild, Verified 09/03/24 13:20) inflamed hives, rash, trimethoprim [From Bactrim] Allergy (Mild, Verified 09/03/24 13:20) inflamed hives, rash, amoxicillin [AMOXICILLIN] Allergy (Unknown, Verified 09/03/24 13:20) HIVES citalopram [From Celexa] Allergy (Verified 09/03/24 13:20) Hives lamotrigine [From Lamictal] Allergy (Verified 09/03/24 13:20) Hives morphine Adverse Reaction (Mild, Verified 09/03/24 13:20) Itching haloperidol [From Haldol] Adverse Reaction (Verified 09/03/24 13:20) Angioedema Medication List - Last Reconciled 09/03/24 by Becca Rodriguez PA-C albuterol sulfate 90 mcg/actuation 2 puffs PO Q4-6H PRN bisacodyl (Dulcolax (bisacodyl)) 10 mg MS DAILY PRN buprenorphine-naloxone 12-3 mg (Suboxone) 30 mg sublingual DAILY clonazepam (Klonopin) 2 mg PO TID clonidine HCl 3 tabs PO BEDTIME cyclobenzaprine 5 mg PO ONCE PRN dextroamphetamine-amphetamine 20 mg 20 mg PO DAILY@1400 dextroamphetamine-amphetamine 30 mg ER (Adderall XR) 30 mg PO DAILY dicyclomine 20 mg PO TID PRN 30 days docusate sodium (Colace) 200 mg (2 x 100 mg) PO BEDTIME 30 days ergocalciferol (vitamin D2) (Drisdol) 1,250 mcg PO QWEEK folic acid 1 mg PO DAILY furosemide (Lasix) 20 mg PO QAM ipratropium-albuterol 0.5 mg-3 mg(2.5 mg base)/3 mL 3 mL inhalation Q6H PRN 30 days lubiprostone 8 mcg PO BID 30 days methylcellulose (laxative) (Citrucel) 500 mg PO BID 30 days metoprolol tartrate 12.5 mg PO mometasone 200 mcg/actuation (Asmanex HFA) 2 puffs inhalation BID polyethylene glycol 3350 (Miralax) 17 grams PO BID 60 days pregabalin 75 mg PO TID rosuvastatin 10 mg PO QAM sertraline 2 tabs PO QAM simethicone (Gas-X Extra Strength) 125 mg PO BEDTIME PRN 30 days theophylline ER 400 mg PO QAM tiotropium-olodaterol 2.5-2.5 mcg/actuation (Stiolto Respimat) 2 puffs PO DAILY verapamil ER 120 mg PO QPM ziprasidone HCl (Geodon) 80 mg PO BID zolpidem (Ambien) 10 mg PO BEDTIME PRN HPI HPI OV-right knee follow up: Details: 59-year-old female returns to the office today for a right knee proximal tibia fracture. She has been weight-bearing as tolerated. She states that she feels her knee is weak and stiff. She will try to perform daily activities but feels like she is not applying as much weight as she is usually able to because of weakness. [facility] Medical History (Updated 09/03/24 @ 13:34 by Becca Rodriguez PA-C) COVID-19 vaccine series completed Bipolar disorder Chronic pain syndrome Disc degeneration, lumbar Spondylosis 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 Chronic constipation Deviated septum Emphysema lung Adenomatous colon polyp Acid reflux Surgical History History of esophagogastroduodenoscopy (EGD) Hx of colonoscopy Family History Father No problems noted. Mother No problems noted. Social History Household Members: Children Alcohol intake: never Patient Tobacco Use Status: Former Tobacco user Tobacco use type: Cigarette Current occupational status: unemployed Review of Systems Const All systems reviewed & are unremarkable except as noted in HPI and below Physical Exam Vital Signs: BMI result Body Mass Index 30.4 Const General: cooperative, healthy appearing, comfortable, no acute distress, well developed and alert Orientation/consciousness: patient oriented x3 HEENT Head: Yes normal to inspection, Yes normocephalic and Yes atraumatic Eyes General: appearance normal, both eyes and all related structures Resp Effort & Inspection: normal respiratory effort and able to speak in complete sentences Cardio Rate: regular rate Peripheral pulses: Peripheral pulses 2+ throughout GI Palpation (GI): Soft to palpation Skin Lesions: no lesions Rashes: no rashes Neuro General: patient oriented x3 Extrem Other: Right knee: Skin is intact. No open wound, no joint effusion, no redness. No tenderness over the lateral proximal tibia. Range of motion-5-95 degrees.. Calf supple, nontender. NVI. Results Reviewed Results Reviewed: . Xrays were obtained in the office today and personally reviewed by me of the right knee show stable tibial plateau fracture without collapse. Assessment & Plan Assessment & Plan (1) Tibial plateau fracture, right: Code(s): S82.141A - Displaced bicondylar fracture of right tibia, initial encounter for closed fracture Category: Medical Qualifiers: Encounter type: subsequent encounter Fracture type: closed Fracture healing: with routine healing Qualified Code(s): S82.141D - Displaced bicondylar fracture of right tibia, subsequent encounter for closed fracture with routine healing Plan: She will continue weight-bearing as tolerated. An order for physical therapy has been placed for range of motion and quad strengthening exercises. She will increase activities as tolerated and if symptoms persist or worsen she will contact our office otherwise follow-up as needed. Orders: Orders XR knee RT 2V Today M25.569 - Pain in unspecified knee PT Evaluation and Treatment Today S82.141A - Displaced bicondylar fracture of right tibia, initial encounter for closed fracture Coding Level of Care Code Global (39502) Diagnoses Closed fracture of right tibial plateau with routine healing, subsequent encounter S82.141D Encounter type: subsequent encounter Fracture type: closed Fracture healing: with routine healing
[2024-09-03 13:20] VITALS: BMI 30.4
== END 2024-09-03 13:35 | disposition home or self-care (01) ==
PROVIDERS: PCP Nurse Practitioner Primary Care; Visit Provider Physician Assistant
DX: S82.141D Displaced bicondylar fracture of right tibia, subsequent encounter for closed fracture with routine healing (principal)
CPT/HCPCS: 99213

== ENCOUNTER 2024-09-03 13:02 | Outpatient (REF) | payer MEDICAID, SELFPAY ==
--- NOTE | ~2024-09-03 | XR_ITS ---
EXAMINATION: XR KNEE, RIGHT CLINICAL INFORMATION: M25.569 - Pain in unspecified knee. COMPARISON: 08/12/2024, 07/23/2024. TECHNIQUE: AP and lateral views of the right knee. FINDINGS: Moderate joint effusion. Redemonstration of minimally depressed nondisplaced fracture along the lateral aspect of the lateral tibial plateau. Fracture line is still visible, although there is evidence of bridging callus formation. XR/XR knee RT 2V IMPRESSION: Healing depressed fracture along the lateral tibial plateau. Electronically signed by: Silvia Ruiz MD 09/08/2024 11:57 AM [email or web address]
== END 2024-09-03 13:03 | disposition home or self-care (01) ==
LOC: HO.HOSX 13:02
PROVIDERS: PCP Nurse Practitioner Primary Care; Visit Provider Physician Assistant
DX: M25.561 Pain in right knee (principal); S82.141D Displaced bicondylar fracture of right tibia, subsequent encounter for closed fracture with routine healing
CPT/HCPCS: 73560; 99212

== ENCOUNTER 2024-09-09 06:13 | Outpatient (REF) | payer MEDICAID, SELFPAY | END 2024-09-09 06:14 | disposition home or self-care (01) | LOC: CF 06:13 | PROVIDERS: Visit Provider Anesthesiology | DX: Z13.89 Encounter for screening for other disorder (principal) ==

== ENCOUNTER 2024-10-22 14:26 | Outpatient (REF) | payer MEDICAID, SELFPAY ==
[2024-10-22 15:57] LABS: MANUAL DIFF FLAG NO
[2024-10-22 16:10] LABS: Basophils Percent Auto 0.4 % (0-2); Eosinophils Absolute Auto 0.8 X10*3/uL (0.0-0.4); Eosinophils Percent Auto 8.3 % (0-4); Hematocrit 38.3 % (37.0-47.0); Imm Gran Abs Auto 0.03 X10*3/uL (0.00-0.03); Imm Gran Pct Auto 0.3 % (0.0-0.4); Lymphocytes Percent Auto 20.1 % (20-40); Mean Corpuscular HGB Conc 33.9 g/dl (31.0-35.0); Mean Corpuscular Hemoglobin 28.3 pg (27.0-33.0); Mean Corpuscular Volume 83.4 fL (80.0-98.0); Mean Platelet Volume 11.4 fL (9.4-12.3); Monocytes Absolute Auto 0.4 X10*3/uL (0.1-1.2); Monocytes Percent Auto 4.3 % (2-11); Neutrophils Absolute Auto 6.6 x10*3/uL (2.0-8.3); Neutrophils Percent Auto 66.6 % (45-73); Platelet Count 214 X10*3/uL (160-400); Red Blood Count 4.59 X10*6/uL (4.20-5.50); Red Cell Distribution Width 16.3 % (11.0-16.0); White Blood Count 9.9 X10*3/uL (4.8-10.8)
[2024-10-22 16:11] LABS: Basophils Absolute Auto 0.1 X10*3/uL (0.0-0.2); Basophils Percent Auto 0.5 % (0-2); Eosinophils Absolute Auto 0.8 X10*3/uL (0.0-0.4); Eosinophils Percent Auto 8.4 % (0-4); Hematocrit 39.4 % (37.0-47.0); Imm Gran Abs Auto 0.04 X10*3/uL (0.00-0.03); Imm Gran Pct Auto 0.4 % (0.0-0.4); Lymphocytes Percent Auto 20.5 % (20-40); Mean Corpuscular Hemoglobin 28.1 pg (27.0-33.0); Mean Corpuscular Volume 85.1 fL (80.0-98.0); Mean Platelet Volume 11.1 fL (9.4-12.3); Monocytes Absolute Auto 0.4 X10*3/uL (0.1-1.2); Monocytes Percent Auto 4.2 % (2-11); Neutrophils Absolute Auto 6.4 x10*3/uL (2.0-8.3); Platelet Count 207 X10*3/uL (160-400); Red Blood Count 4.63 X10*6/uL (4.20-5.50); Red Cell Distribution Width 16.3 % (11.0-16.0); White Blood Count 9.7 X10*3/uL (4.8-10.8)
[2024-10-22 16:23] LABS: Appearance Urine Clear; Color Urine Yellow; Glucose Urine UA Negative (Negative); Leukocyte Esterase Urine Negative (Negative); Nitrite Urine Negative (Negative); PH 6.5 (5.0-9.0); Specific Gravity - Urine <= 1.005 (1.005-1.025); Urine Blood Negative (Negative); Urine Ketones Negative (Negative); Urine Protein Negative (Neg-Trace)
[2024-10-22 16:43] LABS: Parathyroid Hormone Intact 188.2 pg/mL (8.7-77.1)
[2024-10-22 16:44] LABS: Parathyroid Hormone Intact 179.4 pg/mL (8.7-77.1)
[2024-10-22 16:50] LABS: Microalbumin Urine < 5.0 mg/L
[2024-10-22 16:53] LABS: Alanine Aminotransferase 14 U/L (0-31); Albumin Level 3.8 g/dL (3.5-5.0); Alkaline Phosphatase 99 U/L (39-117); Anion Gap 12 (12-20); Aspartate Amino Transferase 21 U/L (5-31); Bilirubin Total 0.2 mg/dL (0.0-1.0); Blood Urea Nitrogen 12 mg/dL (9-16); Calcium 10.1 mg/dL (8.4-10.2); Carbon Dioxide 29 mmol/L (22-29); Chloride 102 mmol/L (96-108); Estimated Glomerular Filt Rate 43; Glucose Random 95 mg/dL (60-115); Iron 47 mcg/dL (30-160); Percent Iron Saturation 17 % (15-50); Potassium 4.1 mmol/L (3.3-5.1); Sodium 139 mmol/L (135-145); Total Iron Binding Capacity 273 mcg/dL (228-428); Total Protein 8.5 g/dL (6.5-8.0); Unsaturated Iron Binding 226 ug/dL
[2024-10-22 16:57] LABS: Creatinine Urine 30.12 mg/dL; Total Protein Urine Random < 7 mg/dL (<12)
[2024-10-22 17:15] LABS: Ferritin 44 ng/mL (10-250); Vitamin D 25-OH Total 21.7 ng/mL (>30)
--- OUTSIDE RECORDS SUMMARY | 2024-10-22 19:06 | XMS_ITS | Encounter Summary ---
Author Organization [employer] Address 75 [facility] 7t [place] [address] Care Team Providers Care Business Solutions Analyst Name Role Phone Ju Khan Primary Care Provider [phone] Jennifer Sultana NP Primary Care Provider Reason for Visit * Reason Onset Date Comments Referral 06/19/2023 Encounter Details Date Type Department Care Team ([facility] Contact Info) Description 06/19/2023 Telephone [facility] MEDICINE 230 [place], [place] [phone] Ju Khan ANP 230 [place], [place] [phone] Referral Social History Tobacco Use Types Packs/Day [...] from pt requesting a new location for voice studies director referral. Any questions, contact pt at [phone] documented in this encounter Plan of Treatment Not on file documented as of this encounter Visit Diagnoses Not on filedocumented in this encounter Additional Health Concerns Assessment Noted Time PHQ-9 Depression Total Score: 9 12/01/19 23 10:12 AM EDT documented as of this encounter Care Teams Business Solutions Analyst Relationship Specialty Start Date End Date Ju Khan ANP 230 [place] [address] PCP - General Family Medicine 03/20/22 07/27/24 Jennifer Sultana NP 230 [place] [address] PCP - General Family Medicine 07/28/24 Juanito Srinivasan Photographer Still 05/10/23 Francisco J Palomino Photographer StillGluer Machine Operator 05/16/23 Fawad Vargas Photographer StillGluer Machine Operator 08/11/24 documented as of this encounter
--- OUTSIDE RECORDS SUMMARY | 2024-10-22 19:06 | XMS_ITS | Clinical Summary ---
Author Organization [address] [place] [address] Address [address] [place] [address] Phone Care Team Providers Care Probation And Patrol Agent Name Role Phone Jennifer Sultana PRATIK Primary Care Provider [phone] Allergies Active Allergy Reactions Criticality Noted Date Comments Amoxicillin 09/30/2024 Aspirin 09/30/2024 Sulfamethoxazole-Trimethoprim 2024 Citalopram 09/30/2024 Codeine 09/30/2024 Haloperidol 09/30/2024 Lamotrigine 09/30/2024 Morphine 09/30/2024 Penicillins 09/30/2024 Sulfa (Sulfonamide Antibiotics) 11/2024 Encounters Date Type Department Care Team Description 09/30/2024 1:15 PM EST Consult Orthopedic Surgery - [place] [address] [address] Artie Goodrich, LEENA Pain in [...] PM EDT Office Visit Orthopedic Surgery - [place] [address] [facility] [address] [place] [address] Artie Goodrich, DPM [address] [facility] [address] [place] [address] Health Maintenance Due Date Last Done Comments [...] to complete this topic Insurance [place]ICA[place] - [place] Care Teams Probation And Patrol Agent Relationship Specialty Start Date End Date Jennifer Sultana FNP [address] [place] [address] PCP - General Nurse Practitioner 08/18/24
--- OUTSIDE RECORDS SUMMARY | 2024-10-22 19:06 | XMS_ITS | Encounter Summary ---
Author Organization [employer] Address [address] [facility] [address] 7t [place] [address] Care Team Providers Care Senior Credit Analyst Name Role Phone Ju Khan Primary Care Provider [phone] Jennifer Sultana NP Primary Care Provider [phone] Reason for Visit * Reason Onset Date Comments PT-1 02/25/2024 Encounter Details Date Type Department Care Team ([facility] Contact Info) Description 02/25/2024 Telephone [facility] MEDICINE 230 [place], [place] [phone] Ju Khan ANP 230 [place], [place] [phone] PT-1 Social History Tobacco Use Types Packs/Day [...] Y/N: Yes Provider name or facility name: [facility] Facility Address: [address] [place] [address] Escort needed: Y/N: No Do you have [...] as of this encounter Care Teams Senior Credit Analyst Relationship Specialty Start Date End Date Ju Khan ANP 230 [place] [address] PCP - General Family Medicine 03/20/22 07/27/24 Jennifer Sultana NP 230 [place] [address] PCP - General Family Medicine 07/28/24 Juanito Srinivasan Commercial Appraiser 05/10/23 Francisco J Palomino Commercial AppraiserEar Mold Laboratory Technician 05/16/23 Fawad Vargas Commercial AppraiserEar Mold Laboratory Technician 08/11/24 documented as of this encounter
--- OUTSIDE RECORDS SUMMARY | 2024-10-22 19:06 | XMS_ITS | Encounter Summary ---
Author Organization [employer] Address 75 [facility] 7t [place] [address] Care Team Providers Care Tenter Name Role Phone Ju Khan Primary Care Provider [phone] Jennifer Sultana NP Primary Care Provider [phone] Reason for Visit * Reason Onset Date Comments PT1 02/06/2024 Encounter Details Date Type Department Care Team ([facility] [place] Contact Info) Description 02/06/2024 Telephone [facility] MEDICINE 230 [place], [place] [phone] Ju Khan ANP 230 [place], [place] [phone] PT1 Social History Tobacco Use Types Packs/Day [...] Y/N: Yes Provider name or facility name: [facility] Facility Address: [address] [place] [address] Escort needed: Y/N: Yes Do you have [...] documented as of this encounter Care Teams Tenter Relationship Specialty Start Date End Date Ju Khan ANP [address] [place] [address] PCP - General Family Medicine 03/20/22 07/27/24 Jennifer Sultana NP [address] [place] [address] PCP - General Family Medicine 07/28/24 Juanito Srinivasan Towel Sorter 05/10/23 Francisco J Palomino Towel SorterRefrigeration Unit Repairer 05/16/23 Fawad Vargas Towel SorterRefrigeration Unit Repairer 08/11/24 documented as of this encounter
--- OUTSIDE RECORDS SUMMARY | 2024-10-22 19:06 | XMS_ITS | Encounter Summary ---
Author Organization [employer] Address 75 [facility] 7t [place] [address] Care Team Providers Care Mounted Police Officer Name Role Phone Ju Khan Primary Care Provider [phone] Jennifer Sultana NP Primary Care Provider [phone] Reason for Visit * Reason Comments Med Refill Encounter Details Date Type Department Care Team ([facility] st Contact Info) Description 05/23/2023 Refill [facility] MEDICINE 230 [place] [address] Ju Khan ANP 230 [place] [address] Multiple joint pain Social History Tobacco Use [...] documented as of this encounter Care Teams Mounted Police Officer Relationship Specialty Start Date End Date Ju Khan ANP 230 [place] [address] PCP - General Family Medicine 03/20/22 07/27/24 Jennifer Sultana NP 230 [place] [address] PCP - General Family Medicine 07/28/24 Juanito Srinivasan Senior System Operator 05/10/23 Francisco J Palomino Senior System OperatorPurchase Request Editor 05/16/23 Fawad Vargas Senior System OperatorPurchase Request Editor 08/11/24 documented as of this encounter
--- OUTSIDE RECORDS SUMMARY | 2024-10-22 19:06 | XMS_ITS | Encounter Summary ---
Author Organization [employer] Address 75 [facility] 7t [place] [address] Care Team Providers Care Chemical Laboratory Tester Name Role Phone Ju Khan Primary Care Provider Jennifer Sultana NP Primary Care Provider [phone] Reason for Visit * Reason Onset Date Comments PT1 06/18/2023 Encounter Details Date Type Department Care Team ([facility] Contact Info) Description 06/18/2023 Telephone [facility] MEDICINE 230 [place], [place] [phone] Ju Khan ANP 230 [place], [place] [phone] PT1 Social History Tobacco Use Types Packs/Day [...] 2:19 PM EDT PT1 Name of facility: [facility] Specialty: Follow up with PCP Location: [address] [place] [address] Date: 07/02/2023 Time: 3:00 pm fax: [phone] wheelchair: NO Color Print Inspector: NO Visits: Pt states for all future appts documented in this encounter Plan of Treatment Not on file documented as of this encounter Visit Diagnoses Not on filedocumented in this encounter Additional Health Concerns Assessment Noted Time PHQ-9 Depression Total Score: 9 12/01/19 10:12 AM EDT documented as of this encounter Care Teams Chemical Laboratory Tester Relationship Specialty Start Date End Date Ju Khan ANP [address] [place] [address] PCP - General Family Medicine 03/20/22 07/27/24 Jennifer Sultana NP [address] [place] [address] PCP - General Family Medicine 07/28/24 Juanito Srinivasan Television Producer 05/10/23 Francisco J Palomino Television ProducerSocial Media Content Manager 05/16/23 Fawad Vargas Television ProducerSocial Media Content Manager 08/11/24 documented as of this encounter
--- OUTSIDE RECORDS SUMMARY | 2024-10-22 19:06 | XMS_ITS | Encounter Summary ---
Author Organization [employer] Address 75 [facility] 7t [place] [address] Care Team Providers Care Pot Fireman Name Role Phone Ju Khan Primary Care Provider [phone] Jennifer Sultana NP Primary Care Provider [phone] Reason for Visit * Reason Onset Date Comments PT1 06/19/2023 Encounter Details Date Type Department Care Team ([facility] Contact Info) Description 06/19/2023 Telephone [facility] MEDICINE 230 [place], [place] [phone] Ju Khan ANP 230 [place], [place] [phone] PT1 Social History Tobacco Use Types Packs/Day [...] / denial letter via mail. PT-1 Request [id number] Authorized - [address] [address] Wrote called and spoke with pt regarding PT1. [facility] PT1 is good through October 2023 & [facility] Pulmonology is good through 01/2024. Pt just needed [facility] * Telephone Encounter - Lupis Cano - 06/19/2023 2:15 PM EDT Tc from pt requesting PT1 renewal Date: n/a Time: n/a Visits: n/a Address: [address] [place] [address] willi WILSON [place] Facility: [facility] pulmonology Wheel Chair: no, cane Physical Education Instructor Needed: no Date: 07/04 Time: 12 PM Visits: n/a Address: [address] [place] [address] Willi Wilson [place] Facility: [facility] Gastroenterology Wheel Chair: no, cane Physical Education Instructor Needed: no documented in this encounter Plan of Treatment Not on file documented as of this encounter Visit Diagnoses Not on filedocumented in this encounter Additional Health Concerns Assessment Noted Time PHQ-9 Depression Total Score: 9 12/01/19 23 10:12 AM EDT documented as of this encounter Care Teams Pot Fireman Relationship Specialty Start Date End Date Ju Khan ANP 230 [place] [address] PCP - General Family Medicine 03/20/22 07/27/24 Jennifer Sultana NP 230 [place] [address] PCP - General Family Medicine 07/28/24 Juanito Srinivasan Warehouse Shipping Clerk 05/10/23 Francisco J Palomino Warehouse Shipping ClerkMechanical Meter Tester 05/16/23 Fawad Vargas Warehouse Shipping ClerkMechanical Meter Tester 08/11/24 documented as of this encounter
--- OUTSIDE RECORDS SUMMARY | 2024-10-22 19:06 | XMS_ITS | Encounter Summary ---
Author Organization [facility] Address [address] [place] [address] Care Team Providers Care Senior Research Manager Name Role Phone AnselmoJennifer borrego PRATIK Primary Care Provider [phone] Reason for Visit * Reason Comments Nail Problem * Consultation (Routine) - Closed Specialty Diagnoses / Procedures Referred By Ronald constantino Referred To Contact Podiatry / Orthopaedic Surgery Diagnoses Pain in unspecified foot Jennifer Sultana FNP [address] [place] [address] Phone: tel: fax: Artie Goodrich DPM [address] [address] Phone: tel: fax: Referral ID Status Reason Start Date Expiration Date V isits Requested Visits Authorized [id number] Closed Specialty Services Required 08/18/2024 08/18/2025 1 1 Encounter Details Date Type Department Care Team (Late st Contact Info) Description 09/30/2024 1:15 PM EST Consult Orthopedic Surgery - [place] [address] [phone] Artie Goodrich DPM [address] [address] Pain in both feet (Primary Dx); Arthritis [...] Sharp/dull sensation intact, protective sensation diminished on [place]. Peripheral neuropathy throughout the feet bilaterally. ORTHOPEDIC: [...] Upcoming Encounters Date Type Department Care Team ([facility] st Contact Info) Description 12/02/2024 1:15 PM EDT Office Visit Orthopedic Surgery - [place] [address] [phone] Artie Goodrich DPM [address] [address] documented as of this encounter Visit Diagnoses Diagnosis Pain in both feet- Primary Arthritis of both feet Hammertoes of both feet Xerosis cutis Other specified disease of sebaceous glands Dermatophytosis, nail Dermatophytosis of nail documented in this encounter Orders Outpatient Referral Count Last Ordered Date Ordered Date AMB REFERRAL TO PODIATRY 1 09/30/2024 documented in this encounter Care Teams Senior Research Manager Relationship Specialty Start Date End Date Jennifer Sultana FNP [address] [place] [address] PCP - General Nurse Practitioner 08/18/24 documented as of this encounter
--- OUTSIDE RECORDS SUMMARY | 2024-10-22 19:06 | XMS_ITS | Encounter Summary ---
Author Organization [employer] Address [address] [facility] 7t [place] [address] Care Team Providers Care Account Executive Sales Representative Name Role Phone Ju Khan Primary Care Provider [phone] Jennifer Sultana NP Primary Care Provider [phone] Reason for Visit * Reason Comments Med Refill Encounter Details Date Type Department Care Team ([facility] Contact Info) Description 07/15/2024 Refill [facility] 230 [place], [place] [phone] Ju Khan ANP [address] [place] [address] Multiple joint pain Social History Tobacco Use [...] documented as of this encounter Care Teams Account Executive Sales Representative Relationship Specialty Start Date End Date Ju Khan ANP [address] [place] [address] PCP - General Family Medicine 03/20/22 07/27/24 Jennifer Sultana NP 230 [place] [address] PCP - General Family Medicine 07/28/24 Juanito Srinivasan Electrocardiographic Technician 05/10/23 Francisco J Palomino Electrocardiographic TechnicianWelding Machine Operator Thermit 05/16/23 Fawad Vargas Electrocardiographic TechnicianWelding Machine Operator Thermit 08/11/24 documented as of this encounter
--- OUTSIDE RECORDS SUMMARY | 2024-10-22 19:06 | XMS_ITS | Encounter Summary ---
Author Organization [employer] Address [address] [place] [address] 7 [place] [address] Care Team Providers Care Welder Oxyhydrogen Name Role Phone Ju Khan Primary Care Provider [phone] Jennifer Sultana NP Primary Care Provider [phone] Reason for Referral * Consultation (STAT) - Closed Specialty Diagnoses / Procedures Referred By [facility] Referred To Contact Orthopaedic Surgery Diagnoses Other closed fracture of proximal end of right tibia, initial encounter Fry cyst, right Ju Khan ANP [address] [place] [address] Phone: tel: fax: [facility] [address] [place] [address] Phone: tel: Referral ID Status Reason Start Date Expiration Date V isits Requested Visits Authorized [id number] Closed Specialty Services Required 05/05/2024 05/05/2025 3 3 Reason for Visit * Reason Comments Med Refill Encounter Details Date Type Department Care Team (Late st Contact Info) Description 07/03/2024 Refill [facility] [address] [place] [address] Ju Khan ANP [address] [place], [place] [phone] Other closed fracture of proximal end of [...] documented as of this encounter Care Teams Welder Oxyhydrogen Relationship Specialty Start Date End Date Ju Khan ANP [address] [place] [address] PCP - General Family Medicine 03/20/22 07/27/24 Jennifer Sultana NP [address] [place] [address] PCP - General Family Medicine 07/28/24 Juanito Srinivasan Urgent Care Nurse Practitioner 05/10/23 Francisco J Palomino Urgent Care Nurse PractitionerScruff Worker 05/16/23 Fawad Vargas Urgent Care Nurse PractitionerScruff Worker 08/11/24 documented as of this encounter
--- OUTSIDE RECORDS SUMMARY | 2024-10-22 19:06 | XMS_ITS | Encounter Summary ---
Author Organization [employer] Address [address] [facility] 7t [place] [address] Care Team Providers Care Creative Designer Name Role Phone Ju Khan Primary Care Provider [phone] Jennifer Sultana NP Primary Care Provider [phone] Reason for Visit * Reason Onset Date Comments PT-1 06/11/2024 Encounter Details Date Type Department Care Team ([facility] Contact Info) Description 06/11/2024 Telephone [facility] MED[facility]INE 230 [place], [place] [phone] Ju Khan ANP [address] [place], [place] [phone] PT-1 Social History Tobacco Use Types Packs/Day [...] Y/N: Yes Provider name or facility name: [facility] Allergy (Dr. Philippe Evans) Facility Address: [address] [place] [address] Escort needed: Y/N: Yes Do you have a wheelchair: Y/N: No If yes- Manual or electric: (Uses walker and cane) Visits: 3 times a month - Patient calling requesting PT1 Home Address verified: Y/N: Yes Provider name or facility name: [facility] Facility Address: [address] [place] [address] Escort needed: Y/N: Yes Do you have a wheelchair: Y/N: No If yes- Manual or electric: Walker and Cane Visits: 4 a month - Patient calling requesting PT1 Home Address verified: Y/N: Yes Provider name or facility name: Ramez John MD Facility Address: [address] [place] [address] Escort needed: Y/N: Yes Do you have [...] documented as of this encounter Care Teams Creative Designer Relationship Specialty Start Date End Date Ju Khan ANP [address] [place] [address] PCP - General Family Medicine 03/20/22 07/27/24 Jennifer Sultana NP [address] [place] [address] PCP - General Family Medicine 07/28/24 Juanito Srinivasan Cloth Framer 05/10/23 Francisco J Palomino Cloth FramerGrounds Keeper 05/16/23 Fawad Vargas Cloth FramerGrounds Keeper 08/11/24 documented as of this encounter
--- OUTSIDE RECORDS SUMMARY | 2024-10-22 19:06 | XMS_ITS | Encounter Summary ---
Author Organization [employer] Address [address] [facility] 7t [place] [address] Care Team Providers Care Cabinetmaker Apprentice Name Role Phone Ju Khan Primary Care Provider [phone] Jennifer Sultana NP Primary Care Provider [phone] Reason for Visit * Reason Onset Date Comments PT1 06/15/2023 Encounter Details Date Type Department Care Team ([facility] Contact Info) Description 06/15/2023 Telephone [facility] MEDICINE [address] [place], [place] [phone] Ju Khan ANP 230 [place], [place] [phone] PT1 Social History Tobacco Use Types Packs/Day [...] 06/27/2023 Time: 2:45 Visits: 2 monthly Address: [address] [place] [address] Facility: [facility] Wheel Chair: no/cane Field Marketing Lead Needed: no & Date: 07/17/2023 Time: 2:00 Visits: 3 monthly Address: [address] [place] [address] Facility: [facility] Cardiovascular [facility] Wheel Chair: no/cane Field Marketing Lead Needed: no documented in this encounter Plan of Treatment Not on file documented as of this encounter Visit Diagnoses Not on filedocumented in this encounter Additional Health Concerns Assessment Noted Time PHQ-9 Depression Total Score: 9 12/01/19 23 10:12 AM EDT documented as of this encounter Care Teams Cabinetmaker Apprentice Relationship Specialty Start Date End Date Ju Khan ANP [address] [place] [address] PCP - General Family Medicine 03/20/22 07/27/24 Jennifer Sultana NP [address] [place] [address] PCP - General Family Medicine 07/28/24 Juanito Srinivasan Unit Control Worker 05/10/23 Francisco J Palomino Unit Control WorkerMillwright Apprentice 05/16/23 Fawad Vargas Unit Control WorkerMillwright Apprentice 08/11/24 documented as of this encounter
--- OUTSIDE RECORDS SUMMARY | 2024-10-22 19:07 | XMS_ITS | Encounter Summary ---
Demographics Address [address] [facility] [address] [place] [address] Mobile Phone Work Phone Email Address Preferred Language en Marital Status Pentecostalism Affiliation Unknown Race White Ethnic Group Unknown Author Organization [employer] Address [address] [place] [address] 7 [place] [address] Care Team Providers Care Warehouse Engineer Name Role Phone Jennifer Sultana NP Primary Care Provider [phone] Reason for Referral * Consultation (Routine) - Authorized Specialty Diagnoses / Procedures Referred By Ronald constantino Referred To Contact Urology Diagnoses Stage 3a chronic kidney disease (CMS/HCC) Jennifer Sultana NP [address] [place] [address] Phone: tel: fax: [facility] [address] [place], [place] Phone: tel: fax: Referral ID Status Reason Start Date Expiration Date Visits Requested Visits Authorized [id number] Authorized Specialty Services Required 09/23/2024 09/23/2025 6 6 Encounter Details Date Type Department Care Team (Late st Contact Info) Description 09/23/2024 Orders Only [facility] MEDICINE [address] [place], [place] [phone] Jennifer Sultana NP [address] [place], [place] [phone] Stage 3a chronic kidney disease (CMS/HCC) (Primary [...] documented as of this encounter Care Teams Warehouse Engineer Relationship Specialty Start Date End Date Jennifer Sultana NP [address] [place] [address] PCP - General Family Medicine 07/28/24 Juanito Srinivasan Practice Office Associate 05/10/23 Francisco J Palomino Practice Office AssociateInfant Room Teacher 05/16/23 Fawad Vargas Practice Office AssociateInfant Room Teacher 08/11/24 documented as of this encounter
--- OUTSIDE RECORDS SUMMARY | 2024-10-22 19:07 | XMS_ITS | Encounter Summary ---
Demographics Address [address] [facility] [address] [place] [address] Mobile Phone Work Phone Email Address Preferred Language en Marital Status Islam Affiliation Unknown Race White Ethnic Group Unknown Author Organization [email or web address] Address 75 [facility] 7t [place] [address] Care Team Providers Care Photo Lab Manager Name Role Phone Jennifer Sultana NP Primary Care Provider [phone] Encounter Details Date Type Department Care Team ([facility] Contact Info) Description 10/22/2024 Orders Only GENERIC [...] the past 12 months, has t he Moon[employer], [employer], oil or water [employer]uts threatened to shut off services in your [...] Vitamin D 25-OH Total 21.7(L) >30 ng/mL [facility] Comment:Health Based Referen ce Values*< 20 ng/mL Uuscidtlg31-97 ng/mL Insufficient> 30 ng/mL Sufficient*Micki ALFARO. N [...] ORDERAB LES Final Result Performing Organization Address [facility] Co de Phone Number [facility] [address] [place] [phone] * Ferritin (10/22/2024 3:55 PM EST) Ferritin 44 10 - 250 ng/mL [facility] 10/22/2024 3:55 PM EST 10/22/2024 3:55 PM EST Generic External Data Provider LAB BLOOD ORDERAB LES Final Result Performing Organization Address [facility] Phone Number [facility] [address] [place] [phone] * Iron And Total Iron Binding Capacity (10/22/2024 3:55 PM EST) Iron 47 30 - 160 mcg/dL [facility] Total Iron Binding Capacity 273 228 - 428 mcg/dL [facility] Percent Iron Saturation 17 15 - 50 % [facility] Unsaturated Iron Binding 226 ug/dL [facility] 10/22/2024 3:55 PM EST 10/22/2024 3:55 PM EST Generic External Data Provider LAB BLOOD ORDERAB LES Final Result Performing Organization Address [facility] Co de Phone Number [facility] [address] [place] [phone] * (ABNORMAL) PTH, Intact Without Calcium (10/22/2024 3:55 PM EST) Parathyroid Hormone, Intact 188.2(H) 8.7 - 77.1 pg/mL [facility] 10/22/2024 3:55 PM EST 10/22/2024 3:55 PM EST us Generic External Data Provider LAB BLOOD ORDERAB LES Final Result Performing Organization Address City/State/[facility] Co de Phone Number [facility] [address] [place] [phone] * (ABNORMAL) CBC auto differential (10/22/2024 3:55 PM EST) White Blood Count 9.9 4.8 - 10.8 X10*3/uL [facility] Red Blood Count 4.59 4.20 - 5.50 X10*6/uL [facility] Hemoglobin 13.0 12.0 - 16.0 g/dl [facility] Hematocrit 38.3 37.0 - 47.0 % [facility] Mean Corpuscular Volume 83.4 80.0 - 98.0 fL [facility] Mean Corpuscular Hemoglobin 28.3 27.0 - 33.0 pg [facility] Mean Corpuscular HGB Conc 33.9 31.0 - 35.0 g/dl [facility] Red Cell Distribution Width 16.3(H) 11.0 - 16.0 % [facility] Platelet Count 214 160 - 400 X10*3/uL [facility] Mean Platelet Volume 11.4 9.4 - 12.3 fL [facility] Neutrophils Percent Auto 66.6 45 - 73 % [facility] Imm Gran Pct Auto 0.3 0.0 - 0.4 % [facility] Lymphocytes Percent Auto 20.1 20 - 40 % [facility] Monocytes Percent Auto 4.3 2 - 11 % [facility] Eosinophils Percent Auto 8.3(H) 0 - 4 % [facility] Basophils Percent Auto 0.4 0 - 2 % [facility] NRBC Pct Auto 0.0 0.0 - 0.2 /100WBC [facility] Neutrophils Absolute Auto 6.6 2.0 - 8.3 x10*3/uL [facility] Imm Gran Abs Auto 0.03 0.00 - 0.03 X10*3/uL [facility] Lymphocytes Absolute Auto 2.0 1.2 - 4.9 X10*3/uL [facility] Monocytes Absolute Auto 0.4 0.1 - 1.2 X10*3/uL [facility] Eosinophils Absolute Auto 0.8(H) 0.0 - 0.4 X10*3/uL [facility] Basophils Absolute Auto 0.0 0.0 - 0.2 X10*3/uL [facility] NRBC Abs Auto 0.000 0.0 - 0.012 X10*3/uL [facility] 10/22/2024 3:55 PM EST 10/22/2024 3:55 PM EST us Generic External Data Provider LAB BLOOD ORDERAB LES Final Result Performing Organization Address City/[facility] Co de Phone Number [facility] [address] [place] [phone] * Protein Creatinine Ratio, Urine (10/22/2024 3:49 PM EST) Creatinine, Urine 30.12 mg/dL [facility] Protein, Total, Random Urine <7 <12 mg/dL [facility] Protein/Creatin ine Ratio, Ur TNP <0.2 [facility] Comment:Unable to calculate urine protein creatinine ratio due tolow creatinine or protein result. 10/22/2024 3:49 PM EST 10/22/2024 4:08 PM EST us Generic External Data Provider LAB URINE ORDERAB LES Final Result Performing Organization Address City/[facility] Co de Phone Number [facility] [address] [place] [phone] * Urinalysis with Reflex to Microscopic (10/22/2024 3:49 PM EST) Color Urine Yellow [facility] Appearance Urine Clear [facility] PH 6.5 5.0 - 9.0 [facility] Glucose Urine UA Negative Negative mg/dL [facility] Urine Blood Negative Negative [facility] Specific [place] - Urine <=1.005 1.005 - 1.025 [facility] Urine Protein Negative Neg-Trace mg/dL [facility] Urine Ketones Negative Negative mg/dL [facility] Nitrite Urine Negative Negative [facility] Leukocyte Esterase Urine Negative Negative [facility] 10/22/2024 3:49 PM EST 10/22/2024 4:08 PM EST us Generic External Data Provider LAB URINE ORDERAB LES Final Result Performing Organization Address City/State/[facility] Co de Phone Number [facility] [address] [place] [phone] documented in this encounter Visit Diagnoses Not on filedocumented in this encounter Additional Health Concerns Assessment Noted Time PHQ-9 Depression Total Score: 27 024 2:31 PM EST documented as of this encounter Care Teams Photo Lab Manager Relationship Specialty Start Date End Date Jennifer Sultana NP [address] [place] [address] PCP - General Family Medicine 07/28/24 Juanito Srinivasan Cane Flume Feeding Machine Operator 05/10/23 Francisco J Palomino Cane Flume Feeding Machine OperatorRn Family 05/16/23 Fawad Vargas Cane Flume Feeding Machine OperatorRn Family 08/11/24 documented as of this encounter
--- OUTSIDE RECORDS SUMMARY | 2024-10-22 19:07 | XMS_ITS | Encounter Summary ---
Author Organization [employer] Address [address] [place] [address] 7 [place] [address] Care Team Providers Care Food And Beverage Associate Name Role Phone Jennifer Sultana NP Primary Care Provider [phone] Reason for Referral * Consultation (Routine) - Authorized Specialty Diagnoses / Procedures Referred By Ronald constantino Referred To Contact Nephrology Diagnoses Stage 3a chronic kidney disease (CMS/HCC) Jennifer Sultana NP [address] [place] [address] Phone: tel: fax: [facility] [address], [address] [place] [address] Phone: tel: fax: Referral ID Status Reason Start Date Expiration Date Visits Requested Visits Authorized [id number] Authorized Specialty Services Required 09/23/2024 09/23/2025 6 6 Encounter Details Date Type Department Care Team (Late st Contact Info) Description 09/23/2024 Orders Only [facility] MEDICINE 230 [place], [place] [phone] Jennifer Sultana NP [address] [place], [place] [phone] Stage 3a chronic kidney disease (CMS/HCC) (Primary [...] documented as of this encounter Care Teams Food And Beverage Associate Relationship Specialty Start Date End Date Jennifer Sultana NP [address] [place] [address] PCP - General Family Medicine 07/28/24 Juanito Srinivasan Block Cuber 05/10/23 Francisco J Palomino Block CuberCounter Control Operator 05/16/23 Fawad Vargas Block CuberCounter Control Operator 08/11/24 documented as of this encounter
--- OUTSIDE RECORDS SUMMARY | 2024-10-22 19:07 | XMS_ITS | Encounter Summary ---
Author Organization [employer] Address [address] [facility] 7t [place] [address] Care Team Providers Care Traffic Circuit Engineer Name Role Phone Ju Khan ANP Primary Care Provider [phone] Jennifer Sultana NP Primary Care Provider [phone] Reason for Visit * Reason Onset Date Comments PT1 03/09/2023 Encounter Details Date Type Department Care Team ([facility] Contact Info) Description 03/09/2023 Telephone [facility] MEDICINE 230 [place], [place] [phone] Ju Khan ANP 230 [place], [place] [phone] PT1 Social History Tobacco Use Types Packs/Day [...] PM EDT PT1 initiated for [facility] in [facility] will send pt a letter with instructions * Telephone Encounter - Lupis Cano - 03/09/2023 1:13 PM EDT Tc from pt requesting a PT1 PT1 Date: TBD Time: TBD Address: [address] [place] [address] Specialty: radiculopathy Facility: [facility] Junior Linux Systems Administrator: no Wheelchair: no, cane documented in this encounter Plan of Treatment Not on file documented as of this encounter Visit Diagnoses Not on filedocumented in this encounter Additional Health Concerns Assessment Noted Time PHQ-9 Depression Total Score: 9 12/01/19 23 10:12 AM EDT documented as of this encounter Care Teams Traffic Circuit Engineer Relationship Specialty Start Date End Date Ju Khan ANP [address] [place] [address] PCP - General Family Medicine 03/20/22 07/27/24 Jennifer Sultana NP [address] [place] [address] PCP - General Family Medicine 07/28/24 Juanito Srinivasan Adobe Ball Mixer 05/10/23 Francisco J Palomino Adobe Ball MixerSupervisor Shuttle Fitting 05/16/23 Fawad Vargas Adobe Ball MixerSupervisor Shuttle Fitting 08/11/24 documented as of this encounter
--- OUTSIDE RECORDS SUMMARY | 2024-10-22 19:07 | XMS_ITS | Encounter Summary ---
Author Organization [employer] Address [address] [facility] 7t [place] [address] Care Team Providers Care Egg Gatherer Name Role Phone Ju Khan Primary Care Provider [phone] Jennifer Sultana NP Primary Care Provider [phone] Reason for Visit * Reason Comments Med Refill Encounter Details Date Type Department Care Team ([facility] Contact Info) Description 10/28/2023 Refill [facility] MEDICINE 230 [place], [place] [phone] Ju Khan ANP [address] [place] [address] Multiple joint pain Social History Tobacco Use [...] your housing situation today? I have christiano ciufentes 06/15/[address] you li [...] documented as of this encounter Care Teams Egg Gatherer Relationship Specialty Start Date End Date Ju Khan ANP [address] [place] [address] PCP - General Family Medicine 03/20/22 07/27/24 Jennifer Sultana NP 230 [place] [address] PCP - General Family Medicine 07/28/24 Juanito Srinivasan Director Of Staff Development 05/10/23 Francisco J Palomino Director Of Staff DevelopmentGarland Machine Operator 05/16/23 Fawad Vargas Director Of Staff DevelopmentGarland Machine Operator 08/11/24 documented as of this encounter
--- OUTSIDE RECORDS SUMMARY | 2024-10-22 19:07 | XMS_ITS | Encounter Summary ---
Author Organization [employer] Address [address] [facility] [address] 7t [place] [address] Care Team Providers Care Sailing Officer Name Role Phone Ju Khan ANP Primary Care Provider [phone] Jennifer Sultana NP Primary Care Provider [phone] Reason for Visit * Reason Comments Med Refill Encounter Details Date Type Department Care Team ([facility] st Contact Info) Description 11/07/2023 Refill [facility] 230 [place] [address] Ju Khan ANP [address] [place] [address] Spondylosis 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 Social [...] documented as of this encounter Care Teams Sailing Officer Relationship Specialty Start Date End Date Ju Khan ANP [address] [place] [address] PCP - General Family Medicine 03/20/22 07/27/24 Jennifer Sultana NP 230 [place] [address] PCP - General Family Medicine 07/28/24 Juanito Srinivasan Truck Hopper 05/10/23 Francisco J Palomino Truck HopperGeneral Education Professor 05/16/23 Fawad Vargas Truck HopperGeneral Education Professor 08/11/24 documented as of this encounter
--- OUTSIDE RECORDS SUMMARY | 2024-10-22 19:07 | XMS_ITS | Clinical Summary ---
Author Organization [employer] Address [address] [place] [address] 7 [place] [address] Care Team Providers Care Fitting Room Operator Name Role Phone Jennifer Sultana NP Primary Care Provider [phone] Allergies Active Allergy Reactions Criticality Noted Date [...] Generic External Data 10/07/2024 Travel 10/06/[address] [address] Peyton Roe [place] Chart Prep 09/23/2024 Orders Only [facility] [address] [place] [address] Jennifer Sultana NP Stage 3a chronic kidney disease (CMS/HCC) (Primary Dx) 09/23/2024 Orders Only [facility] [address] [place] [address] Jennifer Sultana NP Stage 3a chronic kidney disease (CMS/HCC) (Primary Dx) 09/18/[address] [address] Peyton Roe [place] Chart Prep 09/18/[address] [address] Jennifer Sultana, [employer] Referral 09/08/[address] [address] Michelle Vigil, RN Results 09/03/2024 Orders Only [facility] External Provider, [facility] 09/01/[address] [address] Jennifer Sultana, [employer] Results 08/22/[address] [address] Jennifer Sultana, [place] Reschedule 08/19/[address] [address] Jennifer Sultana [employer] 08/18/[address] [address] Manolo Garcia ANP Spondylosis 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 08/12/[address] [address] Jennifer Sultana, [employer] Referral 08/12/[address] [address] Jennifer Sultana, [place] 08/11/[address] [address] Jennifer Sultana NP Care Coordination (CP health care / medical job titles) 08/10/[address] [address] Manolo Garcia ANP Spondylosis 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 08/01/[address] [address] Jennifer Sultana, [employer] Referral 07/30/2024 Orders Only [facility] External Provider, [facility] Delayed gastric emptying (Primary Dx) 07/28/2024 2:00 PM EST Office Visit [address] [address] Jennifer Sultana NP Essential hypertension (Primary Dx); Encounter for immunization; Generalized abdominal pain; Stage 3a chronic kidney disease (CMS/HCC); Hypercalcemia; Stenosis of carotid artery, unspecified laterality; SOB (shortness of breath); Dietary counseling; Exercise counseling; Opioid dependence with opioid-induced disorder (CMS/HCC); Pulmonary emphysema, unspecified emphysema type (CMS/HCC); Pain of foot, unspecified laterality 07/22/2024 Telephone [facility]INE [address] [place] [phone] Peyton Roe [place] Chart Prep from Last [...] Vitamin D 25-OH Total 21.7(L) >30 ng/mL [facility] Comment:Health Based Referen ce Values*< 20 ng/mL [id number] ng/mL Insufficient> 30 ng/mL Sufficient*Micki ALFARO. N [...] Provider LAB BLOOD ORDERAB LES Final Result [facility] [address] [place] [address] [phone] * (ABNORMAL) CBC auto differential (10/22/2024 3:55 PM EST) Only the most recent of2 resultswithin the time period is included. White Blood Count 9.9 4.8 - 10.8 X10*3/uL [facility] Red Blood Count 4.59 4.20 - 5.50 X10*6/uL [facility] Hemoglobin 13.0 12.0 - 16.0 g/dl [facility] Hematocrit 38.3 37.0 - 47.0 % [facility] Mean Corpuscular Volume 83.4 80.0 - 98.0 fL [facility] Mean Corpuscular Hemoglobin 28.3 27.0 - 33.0 pg [facility] Mean Corpuscular HGB Conc 33.9 31.0 - 35.0 g/dl [facility] Red Cell Distribution Width 16.3(H) 11.0 - 16.0 % [facility] Platelet Count 214 160 - 400 X10*3/uL [facility] Mean Platelet Volume 11.4 9.4 - 12.3 fL [facility] Neutrophils Percent Auto 66.6 45 - 73 % [facility] Imm Gran Pct Auto 0.3 0.0 - 0.4 % [facility] Lymphocytes Percent Auto 20.1 20 - 40 % [facility] Monocytes Percent Auto 4.3 2 - 11 % [facility] Eosinophils Percent Auto 8.3(H) 0 - 4 % [facility] Basophils Percent Auto 0.4 0 - 2 % [facility] NRBC Pct Auto 0.0 0.0 - 0.2 /100WBC [facility] Neutrophils Absolute Auto 6.6 2.0 - 8.3 x10*3/uL [facility] Imm Gran Abs Auto 0.03 0.00 - 0.03 X10*3/uL [facility] Lymphocytes Absolute Auto 2.0 1.2 - 4.9 X10*3/uL [facility] Monocytes Absolute Auto 0.4 0.1 - 1.2 X10*3/uL [facility] Eosinophils Absolute Auto 0.8(H) 0.0 - 0.4 X10*3/uL [facility] Basophils Absolute Auto 0.0 0.0 - 0.2 X10*3/uL [facility] NRBC Abs Auto 0.000 0.0 - 0.012 X10*3/uL [facility] 10/22/2024 3:55 PM EST 10/22/2024 3:55 PM EST Generic External Data Provider LAB BLOOD ORDERAB LES Final Result Performing Organization Address City/[facility]/ZIP Co de Phone Number [facility] [address] [place] [phone] * Iron And Total Iron Binding Capacity (10/22/2024 3:55 PM EST) Pathologist [facility] Iron 47 30 - 160 mcg/dL [facility] Total Iron Binding Capacity 273 228 - 428 mcg/dL [facility] Percent Iron Saturation 17 15 - 50 % [facility] Unsaturated Iron Binding 226 ug/dL [facility] 10/22/2024 3:55 PM EST 10/22/2024 3:55 PM EST us Generic External Data Provider LAB BLOOD ORDERAB LES Final Result Performing Organization Address [facility]/ZIP Co de Phone Number [facility] [address] [place] [phone] * (ABNORMAL) PTH, Intact Without Calcium (10/22/2024 3:55 PM EST) Only the most recent of2 resultswithin the time period is included. Parathyroid Hormone, Intact 188.2(H) 8.7 - 77.1 pg/mL [facility] 10/22/2024 3:55 PM EST 10/22/2024 3:55 PM EST us Generic External Data Provider LAB BLOOD ORDERAB LES Final Result Performing Organization Address [facility] de Phone Number [facility] [address] [place] [phone] * Ferritin (10/22/2024 3:55 PM EST) Ferritin 44 10 - 250 ng/mL [facility] 10/22/2024 3:55 PM EST 10/22/2024 3:55 PM EST [employer] External Data Provider LAB BLOOD ORDERAB LES Final Result Performing Organization Address [facility] Phone Number [facility] [address] [place] [phone] * (ABNORMAL) Comprehensive Metabolic Panel (10/22/2024 3:55 PM EST) Pathologist [facility] Sodium 139 135 - 145 mmol/L [facility] Potassium 4.1 3.3 - 5.1 mmol/L [facility] Chloride 102 96 - 108 mmol/L [facility] Carbon Dioxide 29 22 - 29 mmol/L [facility] Anion Gap 12 12 - 20 [facility] Urea Nitrogen (BUN) 12 9 - 16 mg/dL [facility] Creatinine, Serum 1.27 0.5 - 1.4 mg/dL [facility] Estimated Glomerular Filt Rate 43 [facility] Comment:Chronic Kidney Disea se: Estimated GFR < 60 mL/min/1.18e5Gyuwtl Kidney Disease: Estimated GFR < 15 mL/min/1.73m2 Glucose 95 60 - 115 mg/dL [facility] Calcium 10.1 8.4 - 10.2 mg/dL [facility] Bilirubin, Total 0.2 0.0 - 1.0 mg/dL [facility] Aspartate Amino Transferase 21 5 - 31 U/L [facility] Alanine Aminotransferase 14 0 - 31 U/L [facility] Total Protein 8.5(H) 6.5 - 8.0 g/dL [facility] Albumin Level 3.8 3.5 - 5.0 g/dL [facility] Alkaline Phosphatase 99 39 - 117 U/L [facility] Blood Venous blood specimen / Unknown 10/22/2024 3:55 PM EST 10/22/2024 3:55 PM EST us Jennifer Sultana [employer] LAB BLOOD ORDERABLES Final Resul t Performing Organization Address [facility] Co de Phone Number [facility] [address] [place] [phone] * Protein Creatinine Ratio, Urine (10/22/2024 3:49 PM EST) Creatinine, Urine 30.12 mg/dL [facility] Protein, Total, Random Urine <7 <12 mg/dL [facility] Protein/Creatin ine Ratio, Ur TNP <0.2 [facility] Comment:Unable to calculate urine protein creatinine ratio due tolow creatinine or protein result. 10/22/2024 3:49 PM EST 10/22/2024 4:08 PM EST us Generic External Data Provider LAB URINE ORDERAB LES Final Result Performing Organization Address [facility] Co de Phone Number [facility] [address] [place] [phone] * Urinalysis with Reflex to Microscopic (10/22/2024 3:49 PM EST) Color Urine Yellow [facility] Appearance Urine Clear [facility] PH 6.5 5.0 - 9.0 [facility] Glucose Urine UA Negative Negative mg/dL [facility] Urine Blood Negative Negative [facility] Specific Frederic - Urine <=1.005 1.005 - 1.025 [facility] Urine Protein Negative Neg-Trace mg/dL [facility] Urine Ketones Negative Negative mg/dL [facility] Nitrite Urine Negative Negative [facility] Leukocyte Esterase Urine Negative Negative [facility] 10/22/2024 3:49 PM EST 10/22/2024 4:08 PM EST Generic External Data Provider LAB URINE ORDERAB LES Final Result Performing Organization Address [facility] Co de Phone Number [facility] [address] [place] [phone] * Albumin, Random Urine W/Creatinine (10/22/2024 3:49 PM EST) Creatinine, Urine 29.30 mg/dL [facility] Microalbumin Urine <5.0 mg/L [facility] Microalbum Creatinine Ratio Ur TNP <30 ug/mg cr [facility] Comment:Unable to calculate albumin/creatinine ratio due to lowmicroalbumin or creatinine result. Urine (Urine, Random) 10/22/2024 3:49 PM EST 10/22/2024 4:08 PM EST us [facility] LAB URINE ORDERABLES Final Resul t Performing Organization Address [facility] de Phone Number [facility] [address] [place] [phone] [phone] * XR Knee 1-2 Views Right (09/03/2024 1:09 PM EST) Only the most recent of2 resultswithin the time period is included. Anatomical Region Laterality Modality Lower Extremities, Knee Right Radiogra phic Imaging 09/03/2024 1:09 PM EST Narrative 09/08/2024 12:00 PM EST ? [facility] ? [address] ?[place] [address] ?XRay Report ? Signed ? Patient: Henebury,Cherri J ?MR#: [id number] ?? [id number] ? : 1965 ?Acct:[id number] ? Age/Sex: 59 / F ?ADM Date: 09/03/24 ? Loc: HO.HOSX ? Attending Dr: Becca Rodriguez PA-C ? Ordering Physician: Becca Rodriguez PA-C ?? Date of Service: 09/03/24 ?? Procedure(s): XR knee RT 2V ?? Accession Number(s): [id number] ? cc: Becca Rodriguez PA-C; MANOLO GARCIA [...] DD/ 1309 ? TD/TT: 09/03/24 1315 ? Radiation Therapist: ? Procedure Note Isabel Sanchez - 09/08/2024 [facility] [address] [place] [address] [address] [place] [address] XRay Report Signed Patient: Cherri Nash JMR#: [id number] : 1965Acct:[id number] Age/Sex: 59 / FADM Date: 09/03/24 Loc: ENRIQUE Attending Dr: Becca Rodriguez PA-C Ordering Physician: Becca Rodriguez PA-C Date of Service: 09/03/24 Procedure(s): XR knee RT 2V Accession Number(s): [id number] cc: Becca Rodriguez PA-C; MANOLO GARCIA NP [...] 09/08/24 1157 DD/ 1309 TD/TT: 09/03/24 1315 Radiation Therapist: [facility] External Provider IMG XR PROCEDURES Edited Result - Final * XR Knee 4+ Views Right (08/12/2024 4:29 PM EST) Anatomical Region Laterality Modality Lower Extremities, Knee Right Radiogra phic Imaging 08/12/2024 4:29 PM EST Narrative 09/08/2024 10:12 AM EST ? [facility] ?[address] ?[place] [address] ?XRay Report ? Signed ? Patient: Henebury,Cherri J ?MR#: [id number] ?? [id number] ? : 1965 ?Acct:[id number] ? Age/Sex: 59 / F ?ADM Date: 12/17/24 ? Loc: HO.CARD ? Attending Dr: Jennifer Sultana NP ? Ordering Physician: MANOLO GARCIA NP ?? Date of Service: 08/12/24 ?? Procedure(s): XR knee RT 4V ?? Accession Number(s): [id number] ? cc: MANOLO GARCIA NP ? EXAMINATION: [...] DD/ 1629 ? TD/TT: 08/12/24 1658 ? Radiation Therapist: ? Procedure Note Daniel, Isabel - 09/08/[address] [address] XRay Report Signed Patient: Cherri Nash JMR#: [id number] : 1965Acct:[id number] Age/Sex: 59 / FADM Date: 08/12/24 Loc: SULY Attending Dr: Jennifer Sultana [employer] Ordering Physician: MANOLO GARCIA NP Date of Service: 08/12/24 Procedure(s): XR knee RT 4V Accession Number(s): [id number] cc: MANOLO GARCIA NP EXAMINATION: XR RIGHT [...] 09/08/24 1009 DD/ 1629 TD/TT: 08/12/24 1658 Radiation Therapist: us Manolo HUFFMAN IMG XR PROCEDURES Edited Result - Final * CT Lung Screening Low dose (08/12/2024 9:57 AM EST) Anatomical Region Laterality Modality Lung Computed Tomogra phy 08/12/2024 9:57 AM EST Narrative 09/24/2024 9:09 AM EST ? [facility] ?[address] ?[place] [address] ? CT Scan Report ? Signed ? Patient: Cherri Nash ?MR#: [id number] ?? [id number] ? : 1965 ?Acct:[id number] ? Age/Sex: 59 / F ?ADM Date: 08/12/24 ? Loc: HO.CARD ? Attending Dr: Jennifer Sultana NP ? Ordering Physician: Everton Stephens MD ?? Date of Service: 08/12/24 ?? Procedure(s): CT lung screening ?? Accession Number(s): [id number] ? cc: Everton Stephens MD; MANOLO GARCIA NP ? Report Number: ?? [id number]: Total DLP = ?? 48.00 mGy-cm ?? [...] Exam submitted for review 09/24/2024 7:50 AM IT TECHNICAL ARCHITECT. ? FINDINGS: ? PULMONARY NODULES: ?? -There [...] for CT CHEST LOW DOSE CANCER SCREENING ([id number]) ?? can be placed. ? Electronically signed by: ??Ke Craig MD ??09/24/2024 09:06 AM EST RP ?? Workstation: [id number] ? Dictated By: ?Ke Craig MD ? Signed By: ?<Electronically signed by Ke Craig MD in OV> ?09/24/24 0906 ? DD/ 0957 ? TD/TT: 08/12/24 1027 ? Radiation Therapist: ? Procedure Note Daniel, Image - 09/24/[address] [address] [address] Scan Report Signed Patient: Cherri Nash JMR#: [id number] : 1965Acct:[id number] Age/Sex: 59 / FADM Date: 08/12/24 Loc: SULY Attending Dr: Jennifer Sultana NP Ordering Physician: Everton Stephens MD Date of Service: 08/12/24 Procedure(s): CT lung screening Accession Number(s): [id number] cc: Everton Stephens MD; MANOLO GARCIA NP Report Number: [id number]: Total DLP = 48.00 mGy-cm EXAMINATION: CT [...] Exam submitted for review 09/24/2024 7:50 AM IT TECHNICAL ARCHITECT. FINDINGS: PULMONARY NODULES: -There are a few [...] for CT CHEST LOW DOSE CANCER SCREENING ([id number]) can be placed. Electronically signed by: Ke Craig MD 09/24/2024 09:06 AM EST Dictated By: Ke Craig MD Signed By: <Electronically signed by Ke Craig MD in OV> 09/24/24 0906 DD/ 0957 TD/TT: 08/12/24 1027 Radiation Therapist: [facility] External Provider IMG CT PROCEDURES Edited Result - Final * US Abdomen Complete (08/12/2024 9:21 AM EST) Anatomical Region Laterality Modality Abdomen Ultrasound 08/12/2024 9:21 AM EST Narrative 09/30/2024 1:30 PM EST ? [facility] ?[address] ?[place] [address] ? Ultrasound Report ? Signed ? Patient: Henebury,Cherri J ?MR#: [id number] ?? [id number] ? : 1965 ?Acct:[id number] ? Age/Sex: 59 / F ?ADM Date: 12/17/24 ? Loc: HO.CARD ? Attending Dr: Jennifer Sultana [employer] ? Ordering Physician: Jennifer Sultana NP ?? Date of Service: 08/12/24 ?? Procedure(s): US abdomen complete ?? Accession Number(s): [id number] ? cc: Jennifer Sultana [employer]; MANOLO GARCIA [employer] ? EXAMINATION: ?? US ABDOMEN COMPLETE ? CLINICAL INFORMATION: ?? Generalized abdominal pain.. ? COMPARISON: ?? 04/10/2023 ?? Correlation made with CT abdomen and pelvis 01/26/2024, and MR abdomen ?? 11/19/2023. ? TECHNIQUE: ?? Real-time imaging of the abdominal viscera. ? Exam submitted for review 09/30/2024 12:17 PM IT TECHNICAL ARCHITECT. ? FINDINGS: ? PANCREAS: Visualized portions are [...] DD/ 0921 ? TD/TT: 08/12/24 0947 ? Radiation Therapist: ? Procedure Note Donotuseinterpreter, Image - 09/30/2024 [place] [address] Ultrasound Report Signed Patient: Cherri Nash JMR#: [id number] : 1965Acct:[id number] Age/Sex: 59 / FADM Date: 08/12/24 Loc: SULY Attending Dr: Jennifer Sultana NP Ordering Physician: Jennifer Sultana NP Date of Service: 08/12/24 Procedure(s): US abdomen complete Accession Number(s): [id number] cc: Jennifer Sultana [employer]; MANOLO GARCIA NP EXAMINATION: US ABDOMEN COMPLETE CLINICAL INFORMATION: Generalized abdominal pain.. COMPARISON: 04/10/[address] abdomen and pelvis 01/26/2024, and MR abdomen 11/19/2023. TECHNIQUE: Real-time imaging of the abdominal viscera. Exam submitted for review 09/30/2024 12:17 PM IT TECHNICAL ARCHITECT. FINDINGS: PANCREAS: Visualized portions are mildly echogenic, [...] 09/30/24 1327 DD/ 0921 TD/TT: 08/12/24 0947 Radiation Therapist: Jennifer Sultana NP IMG US PROCEDURES Final Result * NM Gastric Emptying Solid (07/30/2024 8:43 AM EST) Anatomical Region Laterality Modality Body Nuclear Medicine 07/30/2024 8:43 AM EST Narrative 07/31/2024 3:11 PM EST ? [facility] ?[address] ?[place] [address] ?Nuclear Medicine Report ? Signed ? Patient: Henebury,Cherri J ?MR#: [id number] ?? [id number] ? : 1965 ?Acct:[id number] ? Age/Sex: 59 / F ?ADM Date: 12/04/24 ? Loc: HO.NUCMED ? Attending Dr: Andrew Bruno MD ? Ordering Physician: Andrew Bruno MD ?? Date of Service: 07/30/24 ?? Procedure(s): NM gastric emptying study ?? Accession Number(s): [id number] ? cc: Andrew Bruno MD; MANOLO GARCIA [...] DD/ 0843 ? TD/TT: 07/30/24 1325 ? Radiation Therapist: PK ? Procedure Note Daniel, Isabel - 07/31/2024 [place] [address] Nuclear Medicine Report Signed Patient: Cherri Nash JMR#: [id number] : 1965Acct:[id number] Age/Sex: 59 / FADM Date: 07/30/24 Loc: ANNE-MARIE Attending Dr: Andrew Bruno MD Ordering Physician: Andrew Bruno MD Date of Service: 07/30/24 Procedure(s): NM gastric emptying study Accession Number(s): [id number] cc: Andrew Bruno MD; MANOLO GARCIA NP [...] 07/31/24 1508 DD/ 0843 TD/TT: 07/30/24 1325 Radiation Therapist: BONNIE [facility] External Provider IMG NM PROCEDURES Edited Result [...] EDT Narrative 06/28/2024 10:33 AM EDT ? [facility] ? [address] ?[place] [address] ? Mammography Report ? Signed ? Patient: Cherri Nash J ?MR#: [id number] ?? [id number] ? : 1965 ?Acct:[id number] ? Age/Sex: 59 / F ?ADM Date: 06/19/ ? Loc: HO.MAMMO ? Attending Dr: Manolo Garcia [employer] ? Ordering Physician: RADHA,MANOLO FARRIS ?Results: 1Negative ? Date of Service: 06/19/ ?Follow Up: 1 Year From Orig ?? inal Mammogram ? Procedure(s): MM tomosynthesis screening BI ?? Accession Number(s): [id number] ? cc: RADHA,MANOLO FARRIS ? EXAMINATION: ?? [...] DD/ 1323 ? TD/TT: 06/19/24 1336 ? Radiation Therapist: ? Procedure Note Daniel, Image - 06/28/2024 [facility] [address] [place] [address] [place] [address] Mammography Report Signed Patient: Cherri Nash R#: [id number] : 1965Acct:[id number] Age/Sex: 59 / FADM Date: 06/19/24 Loc: ARAVINDO Attending Dr: Manolo Garcia [employer] Ordering Physician: MANOLO GARCIAesults: 1Negative Date of Service: 06/19/24Follow Up: 1 Year From Orig inal Mammogram Procedure(s): MM tomosynthesis screening BI Accession Number(s): [id number] cc: MANOLO GARCIA NP EXAMINATION: MM SCREENING [...] 06/28/24 1030 DD/ 1323 TD/TT: 06/19/24 1336 Radiation Therapist: Manolo Garcia ANP IMG BI PROCEDURES Final Result * (ABNORMAL) Lipid Panel, Standard (05/02/2024 2:55 PM EDT) Triglycerides 286(H) <150 mg/dL [facility] Comment:Desirable Triglyceri de: less than 150 mg/dLBorderline High Triglyceride 150-199 mg/dLHigh Triglyceride: 200-499 mg/dLVery High Triglyceride: greater than or equal to 5OO mg/dL Cholesterol 216(H) <200 mg/dL [facility] Comment:Desirable Cholestero l: less than 200 mg/dLBorderline High Cholesterol: 200-239 mg/dLHigh Cholesterol: greater than 239 mg/dL LDL Cholesterol Calculated 123(H) <100 mg/dL [facility] Comment:Desirable LDL: less than 100 mg/dLNear Optimal/Above Optimal LDL: 110- 129 mg/dLBorderline High LDL: 130-159 mg/dLHigh LDL: 160-189 mg/dLVery High LDL: greater than or equal to 190 mg/dL HDL Cholesterol 36(L) >40 mg/dL [facility] Comment:Desirable HDL: great er than 40 mg/dL Note: This HDL assay may give artificially low results in patients with liver disease. 05/02/2024 2:55 PM EDT 05/02/2024 4:04 PM EDT Manolo HUFFMAN LAB BLOOD ORDERABLES Final Resul t Performing Organization Address [facility] Co de Phone Number [facility] [address] [place] [phone] * HIV 1/2 ANTIGEN/ANTIBODY,FOURTH GENERATION W/RFL (05/08/2022 2:27 PM EDT) Pathologist [facility] HIV-1/2 ANTIGEN AND ANTIBODIES, 4TH GENERATION W/ [...] ? For additional information please refer to http://education.streamit.spigit/faq/IIJ268 (This link is being provided for informational/ educational purposes only.) ? The performance of this assay has not been clinically validated in patients less than 2 years old. ?? 05/08/2022 2:27 PM EDT us Manolo HUFFMAN LAB BLOOD ORDERABLES Final Resul t [facility] [address] [place] [address], * Hm Colonoscopy (04/12/2018) Colonoscopy Normal Normal Historical Provider HEALTH MAINTENANCE Final Result * HPV mRNA E6/E7 (10/25/2016 9:30 AM EST) HPV mRNA E6/E7 Not Detected NOT DETECTED [facility] Comment: This test was performed using the APTIMA(R) HPV Assay ([employer] This assay detects E6/E7 viral messenger RNA (mRNA) from 14 high-risk HPV types (16,18,31,33,35,39,45,51, 52,56,58,59,66,68). For additional information please refer to: http://education.LionWorks/faq/TIL717v3 (This link is being provided for informational/ educational purposes only.) Test Performed by [employer], [facility], [address] [place] [address] Naif Pereira M.D., Ph.D., Director of Laboratories , [facility] [id number] Please note: ??Effective 05/08/2016, HPV testing will be performed using [employer]'s APTIMA test which targets mRNA. Detecting mRNA instead of DNA, as in older methods, offers significant improvements in specificity. 10/25/2016 9:3 0 AM EST Hazel Corcoran MD HISTORICAL/NON ORDERABLE LABS Final Result Performing Organization Address [facility]/ZIP Co de Phone Number [facility] [address] from Last 3 Months or Most Recently Relevant to Health Maintenance Insurance C3 Care Teams Fitting Room Operator Relationship Specialty Start Date End Date Jennifer Sultana NP [address] [place] [address] PCP - General Family Medicine 07/28/24 Juanito Srinivasan Sap Pi Developer 05/10/23 Francisco J Palomino Sap Pi DeveloperCritical Power Install Technician 05/16/23 Fawad Vargas Sap Pi DeveloperCritical Power Install Technician 08/11/24
--- OUTSIDE RECORDS SUMMARY | 2024-10-22 19:07 | XMS_ITS | Encounter Summary ---
Author Organization [employer] Address [address] [facility] 7t [place] [address] Care Team Providers Care Horticultural Farmer Name Role Phone Jennifer Sultana NP Primary Care Provider [phone] Reason for Visit * Reason Onset Date Comments Reschedule 08/22/2024 Encounter Details Date Type Department Care Team ([facility] Contact Info) Description 08/22/2024 Telephone [facility] MEDICINE [address] [place] [address] Jennifer Sultana NP [address] [place] [address] Reschedule Social History Tobacco Use Types Packs/Day [...] documented as of this encounter Care Teams Horticultural Farmer Relationship Specialty Start Date End Date Jennifer Sultana NP [address] [place] [address] PCP - General Family Medicine 07/28/24 Juanito Srinivasan Qc Tech 05/10/23 Francisco J Palomino Qc TechMonument Setter Helper 05/16/23 Fawad Vargas Qc TechMonument Setter Helper 08/11/24 documented as of this encounter
--- OUTSIDE RECORDS SUMMARY | 2024-10-22 19:07 | XMS_ITS | Encounter Summary ---
Author Organization [employer] Address 75 [facility] 7t [place] [address] Care Team Providers Care Appeals Representative Name Role Phone Jennifer Sultana NP Primary Care Provider Reason for Visit * Reason Onset Date Comments Referral 09/18/2024 Encounter Details Date Type Department Care Team ([facility] Contact Info) Description 09/18/2024 Telephone [facility] MEDICINE [address] [place], [place] [phone] Jennifer Sultana NP 230 [place], [place] [phone] Referral Social History Tobacco Use Types Packs/Day [...] answer, v/m left to return call to [facility] nurses. * Telephone Encounter - Goldie Taylor RN - 09/22/2024 10:17 AM EST T/C to pt to advise that request for new nephrology referral has been sent to pcp. No answer, v/m left to return call to [facility] nurses. * Telephone Encounter - Kristi Coburn [...] pt requesting a referral urology Facility : [facility] Pt stated provider is aware of kidney condition Contact pt at [phone] documented in this encounter Plan of Treatment Not on file documented as of this encounter Visit Diagnoses Not on filedocumented in this encounter Additional Health Concerns Assessment Noted Time PHQ-9 Depression Total Score: 27 024 2:31 PM EST documented as of this encounter Care Teams Appeals Representative Relationship Specialty Start Date End Date Jennifer Sultana NP [address] [place] [address] PCP - General Family Medicine 07/28/24 Juanito Srinivasan Fashion Consultant Sales 05/10/23 Francisco J Palomino Fashion Consultant SalesClay Roaster 05/16/23 Fawad Vargas Fashion Consultant SalesClay Roaster 08/11/24 documented as of this encounter
--- OUTSIDE RECORDS SUMMARY | 2024-10-22 19:07 | XMS_ITS | Encounter Summary ---
Author Organization [employer] Address 75 [facility] 7t [place] [address] Care Team Providers Care Rooming House Operator Name Role Phone Jennifer Sultana NP Primary Care Provider [phone] Reason for Visit * Reason Onset Date Comments Chart Prep 10/06/2024 Encounter Details Date Type Department Care Team ([facility] Contact Info) Description 10/06/2024 Telephone [facility] MEDICINE [address] [place], [place] [phone] Peyton Roe MA Chart Prep Social History [...] documented as of this encounter Care Teams Rooming House Operator Relationship Specialty Start Date End Date Jennifer Sultana NP [address] [place] [address] PCP - General Family Medicine 07/28/24 Juanito Srinivasan Biofuels Product Manager 05/10/23 Francisco J Palomino Biofuels Product ManagerCoat Feller 05/16/23 Fawad Vargas Biofuels Product ManagerCoat Feller 08/11/24 documented as of this encounter
--- OUTSIDE RECORDS SUMMARY | 2024-10-22 19:07 | XMS_ITS | Encounter Summary ---
Demographics Address [address] [facility] [address] [place] [address] Mobile Phone Work Phone Email Address Preferred Language en Marital Status Worship Affiliation Unknown Race White Ethnic Group Unknown Author Organization [employer] Address 75 [facility] 7t [place] [address] Care Team Providers Care Sprayer Operator Name Role Phone Jennifer Sultana NP Primary Care Provider [phone] Reason for Visit * Reason Comments Med Refill Encounter Details Date Type Department Care Team ([facility] Contact Info) Description 08/10/2024 Refill [facility] MEDICINE 230 [place], [place] [phone] Ju Khan, ANP 230 [place] [address] Spondylosis 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 Social [...] documented as of this encounter Care Teams Sprayer Operator Relationship Specialty Start Date End Date Jennifer Sultana NP [address] [place] [address] PCP - General Family Medicine 07/28/24 Juanito Srinivasan Mysql Dba 05/10/23 Francisco J Palomino Mysql DbaVisual Merchandiser 05/16/23 Fawad Vargas Mysql DbaVisual Merchandiser 08/11/24 documented as of this encounter
--- OUTSIDE RECORDS SUMMARY | 2024-10-22 19:07 | XMS_ITS | Encounter Summary ---
Author Organization [employer] Address 75 [facility] 7t [place] [address] Care Team Providers Care Silk Screen Printer Machine Name Role Phone Ju Khan Primary Care Provider [phone] Jennifer Sultana NP Primary Care Provider [phone] Reason for Visit * Reason Onset Date Comments Med Refill 03/22/2023 Encounter Details Date Type Department Care Team ([facility] st Contact Info) Description 03/22/2023 Telephone [facility] MEDICINE 230 [place], [place] [phone] Ju Khan ANP 230 [place], [place] [phone] Med Refill Social History Tobacco Use Types [...] documented as of this encounter Care Teams Silk Screen Printer Machine Relationship Specialty Start Date End Date Ju Khan ANP 230 [place] [address] PCP - General Family Medicine 03/20/22 07/27/24 Jennifer Sultana NP 230 [place] [address] PCP - General Family Medicine 07/28/24 Juanito Srinivasan Structures Technician 05/10/23 Francisco J Palomino Structures TechnicianSheet Fed Printer 05/16/23 Fawad Vargas Structures TechnicianSheet Fed Printer 08/11/24 documented as of this encounter
--- OUTSIDE RECORDS SUMMARY | 2024-10-22 19:07 | XMS_ITS | Encounter Summary ---
Demographics Address [address] [facility] [address] [place] [address] Mobile Phone Work Phone Email Address Preferred Language en Marital Status Jewish Affiliation Unknown Race White Ethnic Group Unknown Author Organization [employer] Address [address] [facility] [address] 7[address] [place] [address] Care Team Providers Care Spike Maker Name Role Phone Kayy Jennifer FRARIS Primary Care Provider [phone] Encounter Details Date Type Department Care Team [...] documented as of this encounter Care Teams Spike Maker Relationship Specialty Start Date End Date Jennifer Sultana NP 230 [place] [address] PCP - General Family Medicine 07/28/24 Juanito Srinivasan Coding Coordinator 05/10/23 Francisco J Palomion Coding CoordinatorCustomer Relations Specialist 05/16/23 Fawad Vargas Coding CoordinatorCustomer Relations Specialist 08/11/24 documented as of this encounter
--- OUTSIDE RECORDS SUMMARY | 2024-10-22 19:07 | XMS_ITS | Encounter Summary ---
Author Organization [employer] Address [address] [facility] [address] 7[address] [place] [address] Care Team Providers Care Buhr Mill Operator Name Role Phone Jennifer Sultana NP Primary Care Provider [phone] Encounter Details Date Type Department Care Team ([facility] Contact Info) Description 08/12/2024 Telephone [facility] MEDICINE 230 [place], [place] [phone] Jennifer Sultana NP 230 [place] [address] Social History Tobacco Use Types Packs/Day Years [...] documented as of this encounter Care Teams Buhr Mill Operator Relationship Specialty Start Date End Date Jennifer Sultana NP [address] [place] [address] PCP - General Family Medicine 07/28/24 Juanito Srinivasan Food And Beverage Cashier 05/10/23 Francisco J Palomino Food And Beverage CashierTraveling Repair Accountant 05/16/23 Fawad Vargas Food And Beverage CashierTraveling Repair Accountant 08/11/24 documented as of this encounter
[2024-10-23 09:05] LABS: HBc Num1 8.72 S/CO (0.00-0.79); HBsAGNum1 0.27 S/CO (0.00-0.99); Hepatitis B Surface Antigen Negative (Negative)
[2024-10-23 10:35] LABS: HBc Num2 8.81 S/CO; HBc Num3 8.84 S/CO; Hepatitis B Core Antibody Reactive (Nonreactive)
[2024-10-23 10:43] LABS: Complement C3 169 mg/dL (83-193)
[2024-10-23 14:44] LABS: IgA 543 mg/dL (47-310); IgG 1707 mg/dL (600-1640); IgM 45 mg/dL (50-300)
[2024-10-24 09:03] LABS: Anti DNA DS Antibody <1 IU/mL; Anti Glomerular Basement Memb <1.0 AI; Hepatitis B Core Antibody IgM NON-REACTIVE (NON-REACTIVE); Myeloperoxidase Antibody <1.0 AI; Proteinase 3 PR3 Antibodies <1.0 AI; Scleroderma 70 Antibody <1.0 NEG AI (<1.0 NEG)
[2024-10-29 01:23] LABS: Phospholipase A2 IgG ELISA <4 RU/mL; Phospholipase A2 IgG IFA NEGATIVE (NEGATIVE)
== END 2024-10-22 14:27 | disposition home or self-care (01) ==
LOC: HO.LAB 14:26
PROVIDERS: Nurse Practitioner Primary Care; PCP Nurse Practitioner Family; Visit Provider Internal Medicine Nephrology
DX: I12.9 Hypertensive chronic kidney disease with stage 1 through stage 4 chronic kidney disease, or unspecified chronic kidney disease (principal); N18.31 Chronic kidney disease, stage 3a; R10.84 Generalized abdominal pain; E83.52 Hypercalcemia
CPT/HCPCS: 36415; 80053; 81003; 82306; 82570; 82728; 82784; 83520; 83540; 83970; 84156; 85025; 86021; 86160; 86225; 86235; 86255; 86334; 86335; 86704; 86705; 87340

== ENCOUNTER 2024-10-22 14:26 | Outpatient (AMB) | payer MEDICAID, SELFPAY ==
[2024-10-22 14:27] VITALS: BP 90/54; PULSE 74; O2SAT 96; BMI 31.6
--- NOTE | 2024-10-22 14:27 | HO.NEPHOV ---
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: No Accompanied by: Other Relationship Allergies codeine Allergy (Severe, Verified 10/22/24 14:31) Anaphylaxis aspirin Allergy (Mild, Verified 10/22/24 14:31) Hives Penicillins [PENICILLINS] Allergy (Mild, Verified 10/22/24 14:31) HIVES Sulfa (Sulfonamide Antibiotics) Allergy (Mild, Verified 10/22/24 14:31) Hives sulfamethoxazole [From Bactrim] Allergy (Mild, Verified 10/22/24 14:31) inflamed hives, rash, trimethoprim [From Bactrim] Allergy (Mild, Verified 10/22/24 14:31) inflamed hives, rash, amoxicillin [AMOXICILLIN] Allergy (Unknown, Verified 10/22/24 14:31) HIVES albuterol Allergy (Verified 10/22/24 14:31) Hives citalopram [From Celexa] Allergy (Verified 10/22/24 14:31) Hives lamotrigine [From Lamictal] Allergy (Verified 10/22/24 14:31) Hives olanzapine Allergy (Verified 10/22/24 14:31) Hives morphine Adverse Reaction (Mild, Verified 10/22/24 14:31) Itching haloperidol [From Haldol] Adverse Reaction (Verified 10/22/24 14:31) Angioedema Do you need a note to return to daycare/school/sports/work: No HPI Comments Details: I had the delight of seeing Cherri in consultation for CKD. She has multiple issues including H/O hypercalcemia as well as CKD for some time. She has joint pains but denies taking excess NSAID use. She has H/O hepatitis C in the past. She denies chest pressure, SOB, PND, orthopnea, edema, nausea, vomiting, diarrhea, new skin rashes, epistaxis, photosensitivity, hematuria, hearing issues. Her recent serum creatinine has been 1.4 [facility] Medical History (Updated 11/18/24 @ 21:14 by Kenneth Barakat MD) Delayed gastric emptying Hypercalcemia Tearfulness Rhinosinusitis Essential (primary) hypertension Anorexia nervosa, restricting type Blindness of left eye Thoracic back pain Uterine leiomyoma Vitamin D deficiency Visual impairment Stress incontinence of urine Chronic kidney disease, stage 3a Former smoker Rib lesion Recurrent acute sinusitis Raised TSH level Pure hypercholesterolemia Mixed hyperlipidemia Postural dizziness Opioid dependence Muscle pain Multiple joint pain Moderate persistent asthma without complication Lumbar radiculopathy Chronic rhinitis Hepatitis C Blood in urine Asthenia COVID-19 vaccine series completed Bipolar disorder Chronic pain syndrome Disc degeneration, lumbar Spondylosis 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 Chronic constipation Deviated septum Emphysema lung Adenomatous colon polyp Acid reflux Surgical History History of tympanoplasty S/P surgery on nasal septum History of bunionectomy History of tubal ligation History of esophagogastroduodenoscopy (EGD) Hx of colonoscopy Family History Father Brain cancer Mother Ovarian cancer Breast cancer Cervical cancer Social History Household Members: Children Alcohol intake: never Patient Tobacco Use Status: Former Tobacco user Tobacco use type: Cigarette Current occupational status: unemployed Review of Systems Const All systems reviewed & are unremarkable except as noted in HPI and below Physical Exam Vital Signs: Last Vital Signs Pulse 74 10/22/24 14:27 BP 90/54 L 10/22/24 14:27 Pulse Ox 96 10/22/24 14:27 Oxygen Delivery Method Room Air 10/22/24 14:27 BMI result Body Mass Index 31.6 Const General: comfortable and no acute distress Orientation/consciousness: patient oriented x3 HEENT Head: Yes normocephalic Mouth: Normal oral and palatal mucosa present Eyes EOM: EOMs intact bilaterally Neck Neck: Yes supple Resp Auscultation: clear to auscultation bilaterally Cardio Jugular venous distension: no JVD Rate: regular rate GI Palpation (GI): Soft to palpation Auscultation: normal bowel sounds General: Yes no CVA tenderness Back/Spine/Pelvis Back: no CVA tenderness Skin General skin exam: no rashes or lesions noted Neuro General: patient oriented x3 and moves all extremities Extrem General: Yes no pedal edema Results Reviewed Nephrology Results: Hgb 13.0 g/dl (12.0-16.0) 10/22/24 WBC 9.9 X10*3/uL (4.8-10.8) 10/22/24 Plt Count 214 X10*3/uL (160-400) 10/22/24 Sodium 139 mmol/L (135-145) 10/22/24 Potassium 4.1 mmol/L (3.3-5.1) 10/22/24 Chloride 102 mmol/L (96-108) 10/22/24 Carbon Dioxide 29 mmol/L (22-29) 10/22/24 BUN 12 mg/dL (9-16) 10/22/24 Creatinine 1.27 mg/dL (0.5-1.4) 10/22/24 Calcium 10.1 mg/dL (8.4-10.2) 10/22/24 PTH Intact 179.4 pg/mL (8.7-77.1) H 10/22/24 Urine Protein Negative mg/dL (Neg-Trace) 10/22/24 Urine Creatinine 30.12 mg/dL 10/22/24 Protein/Creatinin Ratio TNP 10/22/24 Assessment & Plan Assessment & Plan (1) Chronic kidney disease, stage 3a: Code(s): N18.31 - Chronic kidney disease, stage 3a Category: Medical (2) Hypertension: Code(s): I10 - Essential (primary) hypertension Category: Medical Qualifiers: Hypertension type: primary hypertension Qualified Code(s): I10 - Essential (primary) hypertension Plan Cherri has CKD for some time. She recently had marginal rise in serum creatinine recently which may be due to tubular injury or progression of renal disease. She should maintain good hydration and avoid NSAID's. I have ordered detailed work up. She will be a candidate for low dose of ACEI for renal protection. She will need Vitamin D replacement . She also may be having primary hyperparathyroidism given high PTH and high calcium. I did not make any medication changes today but further management is pending evolving data. Answered all questions Orders: Orders Anti DNA DS Antibody 10/22/24 N18.31 - Chronic kidney disease, stage 3a Proteinase 3 PR3 Antibodies 10/22/24 N18.31 - Chronic kidney disease, stage 3a Anti Glomerular Basement Memb 10/22/24 N18.31 - Chronic kidney disease, stage 3a Immunofixation Pnl, Serum 10/22/24 - Chronic kidney disease, stage 3a Phospholipase A2 Receptor Pnl 10/22/24 - Chronic kidney disease, stage 3a Electrolytes 10/22/24 - Chronic kidney disease, stage 3a Calcium 10/22/24 - Chronic kidney disease, stage 3a Creatinine 10/22/24 - Chronic kidney disease, stage 3a Protein Creatinine Ratio, Ur 10/22/24 - Chronic kidney disease, stage 3a US renal BI 2 Weeks - Chronic kidney disease, stage 3a Vitamin D 25-OH Total 10/22/24 - Chronic kidney disease, stage 3a Complete Blood Count Auto Diff 10/22/24 - Chronic kidney disease, stage 3a Myeloperoxidase Antibody 10/22/24 - Chronic kidney disease, stage 3a Complement C3 10/22/24 - Chronic kidney disease, stage 3a Complement C4 10/22/24 - Chronic kidney disease, stage 3a Scleroderma 70 Antibody 10/22/24 - Chronic kidney disease, stage 3a Hepatitis B Core Antibody 10/22/24 - Chronic kidney disease, stage 3a Hepatitis B Surface Antigen 10/22/24 - Chronic kidney disease, stage 3a Blood Urea Nitrogen 10/22/24 - Chronic kidney disease, stage 3a UA and rflx microscopic 10/22/24 - Chronic kidney disease, stage 3a Immunofixation, Random Urine 10/22/24 - Chronic kidney disease, stage 3a Ferritin 10/22/24 - Chronic kidney disease, stage 3a IRON PROFILE 10/22/24 - Chronic kidney disease, stage 3a US renal doppler 2 Weeks - Chronic kidney disease, stage 3a Parathyroid Hormone Intact 10/22/24 - Chronic kidney disease, stage 3a Coding Level of Care Code New Pt Level 4 (06087) Diagnoses Chronic kidney disease, stage 3a Primary hypertension I10 Hypertension type: primary hypertension
--- OUTSIDE RECORDS SUMMARY | 2024-10-22 17:51 | XMS_ITS | Encounter Summary ---
Author Organization [employer] Address [address] [facility] 7t [place] [address] Care Team Providers Care Explosive Operator Grenade Name Role Phone Ju Khan Primary Care Provider [phone] Jennifer Sultana NP Primary Care Provider [phone] Reason for Visit * Reason Onset Date Comments Referral 06/19/2023 Encounter Details Date Type Department Care Team ([facility] Contact Info) Description 06/19/2023 Telephone [facility] [address] [place], [place] [phone] Ju Khan ANP [address] [place], [place] [phone] Referral Social History Tobacco Use Types Packs/Day Years Used Date Smoking Tobacco: Former Cigarettes Smokeless Tobacco: Never Alcohol Use Standard Drinks/Week Comments Not Currently 0 (1 standard drink = 0.6 oz pur e alcohol) Depression Answer Date Recorded Patient Health Questionnaire-9 Score 9 11/30/2022 Housing Stability Answer Date Recorded What is your housing situation today? I have christiano cifuentes 06/15/[address] you li ve. Do you have problems with any of the following? None of the above 06/15/2023 Food Insecurity Answer Date Recorded Within the past 12 months, y ou worried that your food would run out before you got money to buy more: Never True 06/15/2023 Within the past 12 months,th e food you bought just didn't last and you didn't have enough money to get more: Never True Transportation Answer Date Recorded In the past 12 months, has l ack of transportation kept you from medical appts, meetings, work or from getting things needed for daily living? No 06/15/2023 Utilities Answer Date Recorded In the past 12 months, has t he electric, gas, oil or water company threatened to shut off services in your home? No 06/15/2023 Depression Answer Date Recorded Patient Health Questionnaire-2 Score 2 11/30/2022 Comments Unknown Sex and Gender Information Value Date Recorded Sex Assigned at Female 06/26/2022 10:30 AM EDT Legal Sex Female 10:30 AM EDT Gender Identity Female 06/26/2022 10:30 AM EDT Sexual Orientation Straight 06/26/2022 10 :30 AM EDT documented as of this encounter Miscellaneous Notes * Telephone Encounter - Lupis Cano - 06/19/2023 2:21 PM EDT Tc from pt requesting a new location for wheel loader operator referral. Any questions, contact pt at [phone] documented in this encounter Plan of Treatment Not on file documented as of this encounter Visit Diagnoses Not on filedocumented in this encounter Additional Health Concerns Assessment Noted Time PHQ-9 Depression Total Score: 9 12/01/19 23 10:12 AM EDT documented as of this encounter Care Teams Explosive Operator Grenade Relationship Specialty Start Date End Date Ju Khan ANP [address] [place] [address] PCP - General Family Medicine 03/20/22 07/27/24 Jennifer Sultana NP [address] [place] [address] PCP - General Family Medicine 07/28/24 Juanito Srinivasan Technical Director 05/10/23 Francisco J Palomino Technical DirectorRoof Truss Machine Tender 05/16/23 Fawad Vargas Technical DirectorRoof Truss Machine Tender 08/11/24 documented as of this encounter
--- OUTSIDE RECORDS SUMMARY | 2024-10-22 17:51 | XMS_ITS | Encounter Summary ---
Author Organization [employer] Address [address] [facility] 7t [place] [address] Care Team Providers Care Oyster Culler Name Role Phone Ju Khan Primary Care Provider [phone] Jennifer Sultana NP Primary Care Provider [phone] Reason for Visit * Reason Onset Date Comments PT1 06/18/2023 Encounter Details Date Type Department Care Team ([facility] Contact Info) Description 06/18/2023 Telephone [facility] 230 [place], [place] [phone] Ju Khan ANP [address] [place], [place] [phone] PT1 Social History Tobacco Use Types Packs/Day Years [...] encounter Miscellaneous Notes * Telephone Encounter - Sena Lu - 06/18/2023 2:30 PM EDT PT-1 submitted for patient. They will receive a letter of approval or denial in the mail. * Telephone Encounter - Babak Cruz - 06/18/2023 2:19 PM EDT PT1 Name of facility: [facility] Specialty: Follow up with PCP Location: [address] [place] [address] Date: 07/02/2023 Time: 3:00 pm fax: [phone] wheelchair: NO Asian Studies Program Chair: NO Visits: Pt states for all future appts documented in this encounter Plan of Treatment Not on file documented as of this encounter Visit Diagnoses Not on filedocumented in this encounter Additional Health Concerns Assessment Noted Time PHQ-9 Depression Total Score: 9 12/01/19 10:12 AM EDT documented as of this encounter Care Teams Oyster Culler Relationship Specialty Start Date End Date Ju Khan ANP [address] [place] [address] PCP - General Family Medicine 03/20/22 07/27/24 Jennifer Sultana NP [address] [place] [address] PCP - General Family Medicine 07/28/24 Juanito Srinivasan Senior Applications Developer 05/10/23 Francisco J Palomino Senior Applications DeveloperPower Press Tender 05/16/23 Fawad Vargas Senior Applications DeveloperPower Press Tender 08/11/24 documented as of this encounter
--- OUTSIDE RECORDS SUMMARY | 2024-10-22 17:51 | XMS_ITS | Encounter Summary ---
Author Organization [employer] Address [address] [place] [address] 7 [place] [address] Care Team Providers Care President Commercial Bank Name Role Phone Jennifer Sultana NP Primary Care Provider [phone] Reason for Referral * Consultation (Routine) - Authorized Specialty Diagnoses / Procedures Referred By Ronald constantino Referred To Contact Nephrology Diagnoses Stage 3a chronic kidney disease (CMS/HCC) Jennifer Sultana NP [address] [place] [address] Phone: tel: fax: [facility] [address], [address] [place] [address] Phone: tel: fax: Referral ID Status Reason Start Date Expiration Date Visits Requested Visits Authorized [id number] Authorized Specialty Services Required 09/23/2024 09/23/2025 6 6 Encounter Details Date Type Department Care Team (Late st Contact Info) Description 09/23/2024 Orders Only [facility] [address] [place], [place] [phone] Jennifer Sultana NP [address] [place], [place] [phone] Stage 3a chronic kidney disease (CMS/HCC) (Primary Dx) Social History Tobacco Use Types Packs/Day Years Used Date Smoking Tobacco: Former Cigarettes Passive Smoke Exposure: Past Smokeless Tobacco: Never Alcohol Use Standard Drinks/Week Comments Not Currently 0 (1 standard drink = 0.6 oz pur e alcohol) Depression Answer Date Recorded Patient Health Questionnaire-9 Score 27 07/28/2024 Patient Health Questionnaire-9 Score 27 07/28/2024 Last PHQ-9: Questionnaire Data Not on file 1 09/28/2023 Housing Stability Answer Date Recorded What is your housing situation today? I have christiano cifuentes 03/21/[address] you li ve. Do you have problems with any of the following? None of the above 03/21/2024 Food Insecurity Answer Date Recorded Within the past 12 months, y ou worried that your food would run out before you got money to buy more: Sometimes True 2023 Within the past 12 months,th e food you bought just didn't last and you didn't have enough money to get more: Sometimes True 03/21/2024 Transportation Answer Date Recorded In the past 12 months, has l ack of transportation kept you from medical appts, meetings, work or from getting things needed for daily living? Yes, it has kept me from medical appointments or getting medications. 03/21/2024 Utilities Answer Date Recorded In the past 12 months, has t he electric, gas, oil or water company threatened to shut off services in your home? Yes 03/21/2024 Depression Answer Date Recorded Patient Health Questionnaire-2 Score 6 07/28/2024 Internet Access Answer Date Recorded Internet Access Q1 Yes 04/25/2024 Internet Access Q2 Not on file 04/25/2024 Comments Unknown Sex and Gender Information Value Date Recorded Sex Assigned at Female 06/26/2022 10:30 AM EDT Legal Sex Female 10:30 AM EDT Gender Identity Female 06/26/2022 10:30 AM EDT Sexual Orientation Straight 06/26/2022 10 :30 AM EDT documented as of this encounter Plan of Treatment Scheduled Referrals Name Type Priority Associated Diagnoses Order Schedule Referral to Nephrology Outpatient Referral Routine Stage 3a chronic kidney disease (CMS/HCC) Expected: 09/23/2024 (Approximate), Expires: 09/23/2025 documented as of this encounter Visit Diagnoses Diagnosis Stage 3a chronic kidney disease (CMS/HCC)- Primary documented in this encounter Additional Health Concerns Assessment Noted Time PHQ-9 Depression Total Score: 27 024 2:31 PM EST documented as of this encounter Care Teams President Commercial Bank Relationship Specialty Start Date End Date Jennifer Sultana NP [address] [place] [address] PCP - General Family Medicine 07/28/24 Juanito Srinivasan Food Service Counter Clerk 05/10/23 Francisco J Palomino Food Service Counter ClerkSash Clamp Operator 05/16/23 Fawad Vargas Food Service Counter ClerkSash Clamp Operator 08/11/24 documented as of this encounter
--- OUTSIDE RECORDS SUMMARY | 2024-10-22 17:51 | XMS_ITS | Encounter Summary ---
Author Organization [employer] Address [address] [facility] 7t [place] [address] Care Team Providers Care Bulkhead Carpenter Name Role Phone Ju Khan Primary Care Provider [phone] Jennifer Sultana NP Primary Care Provider [phone] Reason for Visit * Reason Comments Med Refill Encounter Details Date Type Department Care Team ([facility] st Contact Info) Description 05/23/2023 Refill [facility] [address] [place] [address] Ju Khan ANP [address] [place] [address] Multiple joint pain Social History Tobacco Use Types Packs/Day Years Used Date Smoking Tobacco: Former Cigarettes Smokeless Tobacco: Never Alcohol Use Standard Drinks/Week Comments Not Currently 0 (1 standard drink = 0.6 oz pur e alcohol) Depression Answer Date Recorded Patient Health Questionnaire-9 Score 9 11/30/2022 Depression Answer Date Recorded Patient Health Questionnaire-2 Score 2 11/30/2022 Comments Unknown Sex and Gender Information Value Date Recorded Sex Assigned at Female 06/26/2022 10:30 AM EDT Legal Sex Female 10:30 AM EDT Gender Identity Female 06/26/2022 10:30 AM EDT Sexual Orientation Straight 06/26/2022 10 :30 AM EDT documented as of this encounter Plan of Treatment Not on file documented as of this encounter Visit Diagnoses Diagnosis Multiple joint pain Pain in joint, multiple sites documented in this encounter Additional Health Concerns Assessment Noted Time PHQ-9 Depression Total Score: 9 12/01/19 23 10:12 AM EDT documented as of this encounter Care Teams Bulkhead Carpenter Relationship Specialty Start Date End Date Ju Khan ANP [address] [place] [address] PCP - General Family Medicine 03/20/22 07/27/24 Jennifer Sultana NP [address] [place] [address] PCP - General Family Medicine 07/28/24 Juanito Srinivasan Health Center Manager 05/10/23 Francisco J Palomino Health Center ManagerMedical Technologist Hematology 05/16/23 Fawad Vargas Health Center ManagerMedical Technologist Hematology 08/11/24 documented as of this encounter
--- OUTSIDE RECORDS SUMMARY | 2024-10-22 17:51 | XMS_ITS | Encounter Summary ---
Author Organization [employer] Address [address] [facility] 7t [place] [address] Care Team Providers Care Patient Support Representative Name Role Phone Ju Khan Primary Care Provider [phone] Jennifer Sultana NP Primary Care Provider [phone] Reason for Visit * Reason Onset Date Comments PT1 06/15/2023 Encounter Details Date Type Department Care Team ([facility] Contact Info) Description 06/15/2023 Telephone [facility] [address] [place], [place] [phone] Ju Khan ANP 230 [place], [place] [phone] PT1 Social History Tobacco Use Types Packs/Day [...] Telephone Encounter - Sena Lu - 06/18/2023 2:45 PM EDT PT-1 submitted for patient. They will receive a letter of approval or denial in the mail. * Telephone Encounter - Muna Venegas - 06/15/2023 11:23 AM EDT Tc from pt requesting PT1 transportation. Date: 06/27/2023 Time: 2:45 Visits: 2 monthly Address: [address] [place] [address] Facility: [facility] Wheel Chair: no/cane Windows Server Administrator Needed: no & Date: 07/17/2023 Time: 2:00 Visits: 3 monthly Address: [address] [place] [address] Facility: [facility]ovascular [facility] Wheel Chair: no/cane Windows Server Administrator Needed: no documented in this encounter Plan of Treatment Not on file documented as of this encounter Visit Diagnoses Not on filedocumented in this encounter Additional Health Concerns Assessment Noted Time PHQ-9 Depression Total Score: 9 12/01/19 23 10:12 AM EDT documented as of this encounter Care Teams Patient Support Representative Relationship Specialty Start Date End Date Ju Khan ANP [address] [place] [address] PCP - General Family Medicine 03/20/22 07/27/24 Jennifer Sultana NP [address] [place] [address] PCP - General Family Medicine 07/28/24 Juanito Srinivasan Harbor [employer] Launch Commander 05/10/23 Francisco J Palomino Harbor Police Launch CommanderMaterial Engineer 05/16/23 Fawad Vargas Harbor Police Launch CommanderMaterial Engineer 08/11/24 documented as of this encounter
--- OUTSIDE RECORDS SUMMARY | 2024-10-22 17:51 | XMS_ITS | Encounter Summary ---
Author Organization [employer] Address [address] [facility] 7t [place] [address] Care Team Providers Care Laser Set Up Operator Name Role Phone Ju Khan Primary Care Provider [phone] Jennifer Sultana NP Primary Care Provider [phone] Reason for Visit * Reason Comments Med Refill Encounter Details Date Type Department Care Team ([facility] Contact Info) Description 10/28/2023 Refill [facility]INE 230 [place], [place] [phone] Ju Khan ANP [address] [place] [address] Multiple joint pain Social History Tobacco Use [...] documented as of this encounter Care Teams Laser Set Up Operator Relationship Specialty Start Date End Date Ju Khan ANP [address] [place] [address] PCP - General Family Medicine 03/20/22 07/27/24 Jennifer Sultana NP [address] [place] [address] PCP - General Family Medicine 07/28/24 Juanito Srinivasan Bioinformatics Computer Scientist 05/10/23 Francisco J Palomino Bioinformatics Computer ScientistCheck Cashier 05/16/23 Fawad Vargas Bioinformatics Computer ScientistCheck Cashier 08/11/24 documented as of this encounter
--- OUTSIDE RECORDS SUMMARY | 2024-10-22 17:51 | XMS_ITS | Clinical Summary ---
Author Organization [employer] Address [address] [place] [address] [address] [place] [address] Care Team Providers Care Manager Trainee Name Role Phone Jennifer Sultana NP Primary Care Provider [phone] Allergies Active Allergy Reactions Criticality Noted Date Comments Albuterol 12/17/2023 Other reaction(s): hives Amoxicillin Unknown 05/02/2016 Aspirin 05/02/2016 Stomach pain Citalopram Hives 09/06/2023 Codeine Unknown 07/05/2021 Haloperidol Angioedema 09/06/2023 Lamotrigine Hives 09/06/2023 Morphine Rash Low 07/05/2021 Other reaction(s): Nausea / Vomiting, Nausea / Vomiting Olanzapine 12/17/2023 Other reaction(s): hives Penicillin G Unknown 05/02/2016 Penicillins Hives 02/19/2023 Sulfa Antibiotics Unknown,Rash Low 08/25/2022 Other reaction(s): inflamed hives, rash, Sulfamethoxazole-Trimethopr im 12/17/2023 Other reaction(s): rash,swelling Trimethoprim Unknown Low 08/25/2022 Other reaction(s): inflamed hives, rash, Medications * This document contains information received from the source organization and may not represent a complete record from that organization. Adderall XR 30 MG 24 hr capsule TAKE 1 CAPSULE BY MOUTH EVERY MORNING 07/18/20 Active amphetamine-dextro amphetamine (Adderall) 20 MG tablet TAKE 1 TABLET BY MOUTH AT 1 IN THE AFTERNOON 07/18/20 Active Suboxone 12-3 MG per sublingual film DISSOLVE 2 FILMS UNDER THE TONGUE DAILY 07/31/20 Active clonazePAM (KlonoPIN) 2 MG tablet TAKE 1 TABLET BY MOUTH UP TO THREE TIMES DAILY NEEDED FOR ANXIETY 07/26/20 Active cloNIDine (Catapres) 0.1 MG tablet TAKE 3 TABLETS BY MOUTH AT BEDTIME FOR SLEEP 08/10/20 22 Active theophylline ER (Uniphyl) 400 MG 24 hr tablet TAKE 1 TABLET BY MOUTH EVERY MORNING 08/10/20 Active verapamil ER (Verelan) 120 MG 24 hr capsule TAKE 1 CAPSULE BY MOUTH EVERY EVENING 08/10/20 22 Active ziprasidone (Geodon) 80 MG capsule TAKE 1 CAPSULE BY MOUTH AT BEDTIME 08/10/20 22 Active zolpidem (Ambien) 10 MG tablet TAKE 1 TABLET BY MOUTH AT BEDTIME 08/10/20 22 Active Stiolto Respimat 2.5-2.5 MCG/ACT aerosol solution inhaler INHALE 2 PUFFS BY MOUTH ONCE DAILY 4 g 3 12/01/19 23 Active albuterol (Ventolin HFA) 108 (90 Base) MCG/ACT inhaler INHALE 2 PUFFS BY MOUTH EVERY 4 TO 6 HOURS NEEDED FOR SHORTNESS OF BREATH 18 g 1 01/25/20 23 Active sertraline (Zoloft) 100 MG tablet TAKE 2 TABLETS BY MOUTH ONCE DAILY IN THE MORNING 180 tablet 10/10/19 24 Active cyclobenzaprine (Flexeril) 5 MG tabletIndications: Chronic pain syndrome TAKE 1 TABLET BY MOUTH AT BEDTIME NEEDED FOR PAIN 30 tablet 1 11/19/19 24 Active polycarbophil (FiberCon) 625 MG tablet Take 1 tablet (625 mg) by mouth in the morning. 90 tablet 3 12/04/19 24 025 Active docusate sodium (Colace) 100 MG capsule TAKE 1 CAPSULE BY MOUTH TWICE DAILY IN THE MORNING AND IN THE EVENING 180 capsule 3 12/04/19 24 Active furosemide (Lasix) 20 MG tablet Take 20 mg by mouth in the morning. 09/12/19 24 Active dicyclomine (Bentyl) 20 MG tablet TAKE 1 TABLET BY MOUTH THREE TIMES DAILY NEEDED FOR ABDOMINAL PAIN 08/10/20 23 Active Colloidal Oatmeal 1 % lotionIndications: Generalized pruritus Apply as needed to affected areas for itching, dry skin 296 mL 11 04/04/20 24 Active pantoprazole (Protonix) 40 MG EC tabletIndications: Gastroesophageal reflux disease, unspecified whether esophagitis present Take 1 tablet (40 mg) by mouth before breakfast. Do not crush, chew, or split. 30 tablet 11 04/04/20 24 025 Active Asmanex HFA 200 MCG/ACT aerosol Inhale 2 puffs 2 times daily. 03/04/20 24 Active polyethylene glycol, PEG, 3350 (Miralax) 17 g packet Mix 1 packet in 8 ounces of water, juice, coffee or tea and drink once a day NEEDED FOR CONSTIPATION 03/05/20 Active Blood Pressure kitIndications:Ess ential hypertension 1 each 2 times daily. 1 kit 05/09/20 24 025 Active ipratropium-albute rol (Duo-Neb) 0.5-2.5 mg/3 mL nebulizer solution Take 3 mL by nebulization every 6 (six) hours if needed for wheezing or shortness of breath. Active fluticasone (Flonase) 50 MCG/ACT nasal sprayIndications:C hronic rhinitis USE 1 SPRAY IN EACH NOSTRIL IN THE MORNING 48 g 05/27/20 24 Active folic acid (Folvite) 1 MG tablet TAKE 1 TABLET BY MOUTH EVERY MORNING 90 tablet 1 06/10/20 24 Active rosuvastatin (Crestor) 10 MG tabletIndications: Mixed hyperlipidemia TAKE 1 TABLET BY MOUTH EVERY MORNING 90 tablet 1 06/10/20 24 Active ondansetron (Zofran) 4 MG tablet Take 1 tablet (4 mg) by mouth if needed each day for nausea or vomiting. 10 tablet 06/12/20 24 025 Active senna (Senokot) 8.6 MG tablet TAKE 2 TABLETS BY MOUTH EVERY DAY AT BEDTIME FOR CONSTIPATION 180 tablet 1 07/09/20 24 Active famotidine (Pepcid) 20 MG tabletIndications: Stage 3a chronic kidney disease (CMS/HCC) Take 1 tablet (20 mg) by mouth Once per day. 30 tablet 11 07/28/20 24 025 Active pregabalin (Lyrica) 75 MG capsuleIndications :Spondylosis 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 TAKE 1 CAPSULE BY MOUTH THREE TIMES DAILY IN THE MORNING, EVENING, AND BEDTIME 90 capsule 2 08/19/20 24 Active metoprolol tartrate (Lopressor) 25 MG tablet TAKE 1/2 TABLET BY MOUTH TWICE DAILY IN THE MORNING AND EVENING 90 tablet 3 08/19/20 Active Active Problems Problem Noted Date Diagnosed Date Normal breast exam 10/07/2024 Dietary counseling 08/17/2024 Assessment & Plan (08/17/2024 12:32 PM EST): Encouraged minimizing processed foods and increasing whole foods particularly vegetables Exercise counseling 08/17/2024 Assessment & Plan (08/17/2024 12:34 PM EST): Encouraged daily movement, working up to 30 minutes daily Delayed gastric emptying 07/31/2024 Overview (07/31/2024): see gastric emptying study 07/2024, severe retention. Encounter for immunization 07/28/2024 Hypercalcemia 07/28/2024 Rhinosinusitis 06/12/2024 Tearfulness 06/12/2024 Assessment & Plan (06/12/2024 3:26 PM EDT): Pt bursted into tears and is seemingly overwhelmed. Denies following with a therapist. -referred to behavioral health 06/12/24 Essential hypertension 05/09/2024 Overview (05/09/2024): Pharmacologic Therapy: Furosemide 20 mg every morning Metoprolol tartrate 12.5 mg twice daily Verapamil HCL ER 120 mg every evening Assessment & Plan (08/17/2024 12:31 PM EST): Stable at goal today Uterine leiomyoma 04/16/2024 Thoracic back pain 04/16/2024 FILIPE (obstructive sleep apnea) 04/16/2024 History of tubal ligation 04/16/2024 Family history of malignant neoplasm of breast 0 04/16/2024 Family history of alcoholism 04/16/2024 Class 1 obesity 04/16/2024 Blindness of left eye 04/16/2024 Anorexia nervosa, restricting type 04/16/2024 Abdominal pain 03/19/2023 Assessment & Plan (08/17/2024 12:30 PM EST): Add famotidine, ct reassuring, utd on colonoscopy, followed by gi, Ultrasound ordered Acid reflux 03/19/2023 Carotid artery stenosis 03/19/2023 Depression 03/19/2023 SOB (shortness of breath) 03/19/2023 Assessment & Plan (08/17/2024 12:32 PM EST): Echo ordered Precordial chest pain 03/19/2023 Spondylosis 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 myelopa thy 03/19/2023 Tubular adenoma 03/19/2023 Overview (08/31/2023): Colonoscopy upcoming 09/2023 COPD (chronic obstructive pulmonary disease) Chronic constipation 12/18/2022 Abnormal TSH 08/25/2022 Body aches 08/25/2022 Deviated septum 08/25/2022 Hypergammaglobulinemia 08/25/2022 Moderate persistent asthma without complication 08/25/2022 Multiple joint pain 08/25/2022 Multiple nodules of lung 08/25/2022 Muscle pain 08/25/2022 Opioid dependence 08/25/2022 Assessment & Plan (08/17/2024 12:35 PM EST): Stable on suboxone Pulmonary emphysema 08/25/2022 Assessment & Plan (08/17/2024 12:32 PM EST): Reassuring exam today, continue prn nebulizer Mixed hyperlipidemia 08/25/2022 Raised TSH level 08/25/2022 Recurrent acute sinusitis 08/25/2022 Assessment & Plan (06/12/2024 3:26 PM EDT): COVID, Strep and Flu negative. Hx of recurrent chronic sinusitis with acute exacerbations. Pt reports multiple surgeries d/t deviated septum. No evidence of respiratory distress. Symptoms moderate. No evidence of dehydration. -referred to ENT 06/12/24 -prescribed Doxycycline 100 mg 06/12/24 -ER precautions discussed. -Seek medical attention for worsening symptoms. Stage 3a chronic kidney disease 08/25/2022 Visual impairment 08/25/2022 Degeneration of lumbar intervertebral disc 08/10 Assessment & Plan (11/30/2022 1:39 PM EDT): She has upcoming ortho consultation and PT Lumbar radiculopathy 08/10/2021 Chronic rhinitis 12/20/2018 Stress incontinence of urine 12/20/2018 Iron deficiency anemia due to chronic blood loss 12/18/2018 Tubular adenoma of colon 12/18/2018 Blood in urine 09/27/2018 Abnormal MRI, breast 05/07/2018 Chronic pain syndrome 02/04/2018 Postural dizziness 02/04/2018 Rib lesion 10/12/2017 Asthenia 07/06/2017 Chronic cough 11/06/2016 Slow transit constipation 11/06/2016 Assessment & Plan (11/30/2022 1:39 PM EDT): With reported one month since last BM, concern for obstruction, no bilious vomiting per pt She may need manual disimpaction/NG tube Less likely related to chronic liver disease May benefit from CT scan to rule out SBO, diverticulitis, visualize extent of constipation She is agreeable to take a medical Uber to the ER Vitamin D deficiency 11/06/2016 Pure hypercholesterolemia 09/22/2016 Chronic hepatitis C 09/08/2016 Recurrent major depression in partial remission 09/08/2016 Former smoker 09/08/2016 Resolved Problems Problem Noted Date Diagnosed Date Resolved Date Acute exacerbation of chroni c obstructive airways disease 08/25/2022 11/30/2022 Perichondritis of pinna 05/17/2018 04/0 01/2023 Encounters Date Type Department Care Team Description 10/22/2024 Orders Only GENERIC EXTERNAL DATA DEPARTMENT Provider, Generic External Data 10/07/2024 Travel 10/06/[address] [address] Peyton Roe MA Chart Prep 09/23/2024 Orders Only [facility] [address] [place] [address] Jennifer Sultana NP Stage 3a chronic kidney disease (CMS/HCC) (Primary Dx) 09/23/2024 Orders Only [facility] [address] [place] [address] Jennifer Sultana NP Stage 3a chronic kidney disease (CMS/HCC) (Primary Dx) 09/18/[address] [address] Peyton Roe [place] Chart Prep 09/18/[address] [address] Jennifer Sultana, CLIENT STRATEGIST Referral 09/08/[address] [address] iMchelle Vigil, RN Results 09/03/2024 Orders Only [facility] External Provider, [facility] 09/01/[address] [address] Jennifer Sultana, CLIENT STRATEGIST Results 08/22/[address] [address] Jennifer Sultana, [place] Reschedule 08/19/[address] [address] Jennifer Sultana CLIENT STRATEGIST 08/18/[address] [address] Manolo Garcia ANP Spondylosis 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 08/12/[address] [address] Jennifer Sultana, CLIENT STRATEGIST Referral 08/12/[address] [address] Jennifer Sultana, [place] 08/11/[address] [address] Jennifer Sultana NP Care Coordination (CP career resource technician) 08/10/[address] [address] Manolo Garcia ANP Spondylosis 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 08/01/[address] [address] Jennifer Sultana, CLIENT STRATEGIST Referral 07/30/2024 Orders Only [facility] External Provider, [facility] Delayed gastric emptying (Primary Dx) 07/28/2024 2:00 PM EST Office Visit [address] [address] Jennifer Sultana NP Essential hypertension (Primary Dx); Encounter for immunization; Generalized abdominal pain; Stage 3a chronic kidney disease (CMS/HCC); Hypercalcemia; Stenosis of carotid artery, unspecified laterality; SOB (shortness of breath); Dietary counseling; Exercise counseling; Opioid dependence with opioid-induced disorder (CMS/HCC); Pulmonary emphysema, unspecified emphysema type (CMS/HCC); Pain of foot, unspecified laterality 07/22/2024 Telephone [facility] [address] [place] [phone] Peyton Roe MA Chart Prep from Last 3 Months Immunizations Name Administration Dates Next Due Influenza injectable quadriv alent IIV4 with preservative 06/23/2019,05/17/2018,07/06/2017 Influenza injectable quadriv alent preservative free 07/02/2023,11/11/2020 Influenza, IIV3, injectable 06/08/2015, 3,05/03/2010 Influenza, seasonal, injecta ble, preservative free 07/28/2024 Pfizer Covid-19 Vaccine 12+ 07/28/2024 Pfizer Covid-19 Vaccine 12+ Bivalent 12/18/2022 Pneumococcal Conjugate PCV 20 12/18/2022 Pneumococcal Polysaccharide PPSV23 06/23/2019,,09/24/2012 Td (adult), unspecified 03/04/2010 Tdap 10/25/2016 Zoster, Recombinant 09/22/2019,06/23/2019 Family History Medical History Relation Name Comments Brain cancer Father Breast cancer Mother Cervical cancer Mother Ovarian cancer Mother Relation Name Status Comments Father Mother Social History Tobacco Use Types Packs/Day Years Used Date Smoking Tobacco: Former Cigarettes Passive Smoke Exposure: Past Smokeless Tobacco: Never Tobacco Cessation:Counseling Given: Not Answered Alcohol Use Standard Drinks/Week Comments Not Currently [...] Orientation Straight 06/26/2022 10 :30 AM EDT Last Filed Vital Signs Vital Sign Reading Time Taken Comments Blood Pressure 105/66 07/28/2024 1:54 PM EST Pulse 88 07/28/2024 1:54 PM EST Temperature 37.1 ??C (98.7 ??F) 07/28/2024 1:54 PM ES T Respiratory Rate 14 07/28/2024 1:54 PM EST Oxygen Saturation 94% 07/28/2024 1:54 PM EST Inhaled Oxygen Concentration - - Weight 85.4 kg (188 lb 3.2 oz) 07/28/2024 1:54 P M EST Height 165.1 cm (5' 5 ) 07/28/2024 1:54 PM EST Body Mass Index 31.32 07/28/2024 1:54 PM EST Plan of Treatment Health Maintenance Due Date Last Done Comments CT Colonography 1967 FIT DNA/Cologuard 1967 FIT 1967 FOBT 1967 Sigmoidoscopy 1967 Hepatitis A Vaccines (1 of 2 - Risk 2-dose series) 1986 Hepatitis B Vaccines (1 of 3 - 19+ 3-dose series) 1986 Pap Smear 02/11/1988 Colonoscopy 04/12/2021 04/12/2018 Colorectal Cancer Screening 04/12/2021 Cervical Cancer Screening 10/25/2021 HPV/Cotest 10/25/2021 10/25/2016 Depression Monitoring (PHQ-9) 01/26/2025 07/28/2024, 07/28/2024 SDOH Screening 03/21/2025 03/21/2024 Mammogram 06/30/2025 06/30/2024, 05/28, 04/04/2023, Additional history exists Alcohol/Substance Use Screening 07/28/2025 07/28/2024 Depression Screening 07/28/2025 07/28/2024, 07/28/20 Tobacco Screening 08/17/2025 08/17/2024 DTaP/Tdap/Td Vaccines (2 - Td or Tdap) 10/25/2026 10/25/2016, 03/04/2010 Lipid Panel 05/02/2029 05/02/2024, 0603/2023, 05/08/2022, Additional history exists RSV Patients and Patients Aged 60 years or older (1 - 1-dose 75+ series) 2042 Zoster Vaccines Completed 09/22/2019, 06/23/2019 HIV Screening Completed 05/08/2022 Pneumococcal Vaccine: 50+ Years Completed 12/18/2022, 06/23/2019, 02/09/2017, Additional history exists COVID-19 Vaccine Completed 07/28/2024, , 01/28/2021 Influenza Vaccine Completed 07/28/2024, , 11/11/2020, Additional history exists HIB Vaccines Aged Out No longer eligi ble based on patient's age to complete this topic HPV Vaccines Aged Out No longer eligi ble based on patient's age to complete this topic IPV Vaccines Aged Out No longer eligi ble based on patient's age to complete this topic Meningococcal Vaccine Aged Out No meagan harvey eligible based on patient's age to complete this topic RSV under 20 months Aged Out No longe r eligible based on patient's age to complete this topic Rotavirus Vaccines Aged Out No longer eligible based on patient's age to complete this topic Procedures Procedure Name Priority Date/Time Associated Diagnosis Comments VITAMIN D,25-OH,TOTAL,IA Routine 10/22/2024 3:55 PM EST FERRITIN Routine 10/22/2024 3:55 PM EST IRON AND TOTAL IRON BINDING CAPACITY Routine 10/22/2024 3:55 PM EST PTH, INTACT WITHOUT CALCIUM Routine 10/22/2024 3:55 PM EST CBC WITH AUTO DIFFERENTIAL Routine 10/22/2024 3:55 PM EST PTH, INTACT WITHOUT CALCIUM Routine 10/22/2024 3:55 PM EST Stage 3a chronic kidney disease (CMS/HCC) Hypercalcemia CBC WITH AUTO DIFFERENTIAL Routine 10/22/2024 3:55 PM EST Generalized abdominal pain COMPREHENSIVE METABOLIC PANEL Routine 10/22/2024 3:55 PM EST Generalized abdominal pain PROTEIN CREATININE RATIO, URINE Routine 10/22/2024 3:49 PM EST URINALYSIS WITH REFLEX TO MICROSCOPIC Routine 10/22/2024 3:49 PM EST ALBUMIN, RANDOM URINE W/CREATININE Routine 10/22/2024 3:49 PM EST Essential hypertension XR KNEE 1-2 VIEWS RIGHT Routine 09/03/2024 1:09 PM EST XR KNEE 4+ VIEWS RIGHT Routine 08/12/2024 4:29 PM EST Sprain of right knee, unspecified ligament, subsequent encounter LDCT LUNG SCREENING Routine 08/12/2024 9 :57 AM EST US ABDOMEN COMPLETE Routine 08/12/2024 9 :21 AM EST Generalized abdominal pain NM GASTRIC EMPTYING SOLID Routine 07/30/2024 8:43 AM EST POCT URINALYSIS DIPSTICK Routine 07/28/2024 2:43 PM EST Essential hypertension XR KNEE 1-2 VIEWS RIGHT Routine 07/23/2024 3:19 PM EST BI MAMMOGRAM SCREENING TOMOSYNTHESIS BILATERAL Routine 06/19/2024 1:23 PM EDT LIPID PANEL, STANDARD Routine 05/02/2024 2:55 PM EDT HIV 1/2 ANTIGEN/ANTIBODY, FOURTH GENERATION W/RFL Routine 05/08/2022 2:27 PM EDT HM COLONOSCOPY Routine 04/12/2018 ZZZ HISTORICAL HPV MRNA E6/E7 Routine 10/25/2016 9:30 AM EST from Last 3 Months or Most Recently Relevant to Health Maintenance Results * (ABNORMAL) Vitamin D, 25-Hydroxy, Total, Immunoassay (10/22/2024 3:55 PM EST) Vitamin D 25-OH Total 21.7(L) >30 ng/mL [facility] Comment:Health Based Referen ce Values*< 20 ng/mL [id number] ng/mL Insufficient> 30 ng/mL Sufficient*Micki ALFARO. N Engl J Med. 2007;357:266-280Care must be taken in interpreting Vitamin D results fromdifferent laboratories and methodologies. Published datademonstrated that results from patients undergoinghemodialysis may show a negative bias when tested withvarious automated 25-OH vitamin D assays when compared toLC-MS/MS.When testing samples from patients whose predominant form ofVitamin D is Vitamin D2, such as patients receiving VitaminD2 supplementation, results that are subtherapeutic shouldbe confirmed with another method such as LC-MS/MS. 10/22/2024 3:55 PM EST 10/22/2024 3:55 PM EST us Generic External Data Provider LAB BLOOD ORDERAB LES Final Result [facility] [address] [place] [address] [phone] * (ABNORMAL) CBC auto differential (10/22/2024 3:55 PM EST) Only the most recent of2 resultswithin the time period is included. White Blood Count 9.9 4.8 - 10.8 X10*3/uL [facility] Red Blood Count 4.59 4.20 - 5.50 X10*6/uL [facility] Hemoglobin 13.0 12.0 - 16.0 g/dl [facility] Hematocrit 38.3 37.0 - 47.0 % [facility] Mean Corpuscular Volume 83.4 80.0 - 98.0 fL [facility] Mean Corpuscular Hemoglobin 28.3 27.0 - 33.0 pg [facility] Mean Corpuscular HGB Conc 33.9 31.0 - 35.0 g/dl [facility] Red Cell Distribution Width 16.3(H) 11.0 - 16.0 % [facility] Platelet Count 214 160 - 400 X10*3/uL [facility] Mean Platelet Volume 11.4 9.4 - 12.3 fL [facility] Neutrophils Percent Auto 66.6 45 - 73 % [facility] Imm Gran Pct Auto 0.3 0.0 - 0.4 % [facility] Lymphocytes Percent Auto 20.1 20 - 40 % [facility] Monocytes Percent Auto 4.3 2 - 11 % [facility] Eosinophils Percent Auto 8.3(H) 0 - 4 % [facility] Basophils Percent Auto 0.4 0 - 2 % [facility] NRBC Pct Auto 0.0 0.0 - 0.2 /100WBC [facility] Neutrophils Absolute Auto 6.6 2.0 - 8.3 x10*3/uL [facility] Imm Gran Abs Auto 0.03 0.00 - 0.03 X10*3/uL [facility] Lymphocytes Absolute Auto 2.0 1.2 - 4.9 X10*3/uL [facility] Monocytes Absolute Auto 0.4 0.1 - 1.2 X10*3/uL [facility] Eosinophils Absolute Auto 0.8(H) 0.0 - 0.4 X10*3/uL [facility] Basophils Absolute Auto 0.0 0.0 - 0.2 X10*3/uL [facility] NRBC Abs Auto 0.000 0.0 - 0.012 X10*3/uL [facility] 10/22/2024 3:55 PM EST 10/22/2024 3:55 PM EST Generic External Data Provider LAB BLOOD ORDERAB LES Final Result Performing Organization Address City/[facility]/ZIP Co de Phone Number [facility] [address] [place] [phone] * Iron And Total Iron Binding Capacity (10/22/2024 3:55 PM EST) Pathologist [facility] Iron 47 30 - 160 mcg/dL [facility] Total Iron Binding Capacity 273 228 - 428 mcg/dL [facility] Percent Iron Saturation 17 15 - 50 % [facility] Unsaturated Iron Binding 226 ug/dL [facility] 10/22/2024 3:55 PM EST 10/22/2024 3:55 PM EST us Generic External Data Provider LAB BLOOD ORDERAB LES Final Result Performing Organization Address [facility]/ZIP Co de Phone Number [facility] [address] [place] [phone] * (ABNORMAL) PTH, Intact Without Calcium (10/22/2024 3:55 PM EST) Only the most recent of2 resultswithin the time period is included. Parathyroid Hormone, Intact 188.2(H) 8.7 - 77.1 pg/mL [facility] 10/22/2024 3:55 PM EST 10/22/2024 3:55 PM EST us Generic External Data Provider LAB BLOOD ORDERAB LES Final Result Performing Organization Address [facility] de Phone Number [facility] [address] [place] [phone] * Ferritin (10/22/2024 3:55 PM EST) Ferritin 44 10 - 250 ng/mL [facility] 10/22/2024 3:55 PM EST 10/22/2024 3:55 PM EST [employer] External Data Provider LAB BLOOD ORDERAB LES Final Result Performing Organization Address [facility] Phone Number [facility] [address] [place] [phone] * (ABNORMAL) Comprehensive Metabolic Panel (10/22/2024 3:55 PM EST) Pathologist [facility] Sodium 139 135 - 145 mmol/L [facility] Potassium 4.1 3.3 - 5.1 mmol/L [facility] Chloride 102 96 - 108 mmol/L [facility] Carbon Dioxide 29 22 - 29 mmol/L [facility] Anion Gap 12 12 - 20 [facility] Urea Nitrogen (BUN) 12 9 - 16 mg/dL [facility] Creatinine, Serum 1.27 0.5 - 1.4 mg/dL [facility] Estimated Glomerular Filt Rate 43 [facility] Comment:Chronic Kidney Disea se: Estimated GFR < 60 mL/min/[id number] Kidney Disease: Estimated GFR < 15 mL/min/1.73m2 Glucose 95 60 - 115 mg/dL [facility] Calcium 10.1 8.4 - 10.2 mg/dL [facility] Bilirubin, Total 0.2 0.0 - 1.0 mg/dL [facility] Aspartate Amino Transferase 21 5 - 31 U/L [facility] Alanine Aminotransferase 14 0 - 31 U/L [facility] Total Protein 8.5(H) 6.5 - 8.0 g/dL [facility] Albumin Level 3.8 3.5 - 5.0 g/dL [facility] Alkaline Phosphatase 99 39 - 117 U/L [facility] Blood Venous blood specimen / Unknown 10/22/2024 3:55 PM EST 10/22/2024 3:55 PM EST us Jennifer Sultana CLIENT STRATEGIST LAB BLOOD ORDERABLES Final Resul t Performing Organization Address [facility] Co de Phone Number [facility] [address] [place] [phone] * Protein Creatinine Ratio, Urine (10/22/2024 3:49 PM EST) Creatinine, Urine 30.12 mg/dL [facility] Protein, Total, Random Urine <7 <12 mg/dL [facility] Protein/Creatin ine Ratio, Ur TNP <0.2 [facility] Comment:Unable to calculate urine protein creatinine ratio due tolow creatinine or protein result. 10/22/2024 3:49 PM EST 10/22/2024 4:08 PM EST us Generic External Data Provider LAB URINE ORDERAB LES Final Result Performing Organization Address [facility] Co de Phone Number [facility] [address] [place] [phone] * Urinalysis with Reflex to Microscopic (10/22/2024 3:49 PM EST) Color Urine Yellow [facility] Appearance Urine Clear [facility] PH 6.5 5.0 - 9.0 [facility] Glucose Urine UA Negative Negative mg/dL [facility] Urine Blood Negative Negative [facility] Specific [place] - Urine <=1.005 1.005 - 1.025 [facility] Urine Protein Negative Neg-Trace mg/dL [facility] Urine Ketones Negative Negative mg/dL [facility] Nitrite Urine Negative Negative [facility] Leukocyte Esterase Urine Negative Negative [facility] 10/22/2024 3:49 PM EST 10/22/2024 4:08 PM EST Generic External Data Provider LAB URINE ORDERAB LES Final Result Performing Organization Address [facility] Co de Phone Number [facility] [address] [place] [address] [phone] * Albumin, Random Urine W/Creatinine (10/22/2024 3:49 PM EST) Creatinine, Urine 29.30 mg/dL [facility] Microalbumin Urine <5.0 mg/L [facility] Microalbum Creatinine Ratio Ur TNP <30 ug/mg cr [facility] Comment:Unable to calculate albumin/creatinine ratio due to lowmicroalbumin or creatinine result. Urine (Urine, Random) 10/22/2024 3:49 PM EST 10/22/2024 4:08 PM EST us [facility] LAB URINE ORDERABLES Final Resul t Performing Organization Address [facility] de Phone Number [facility] [address] [place] [address] [phone] * XR Knee 1-2 Views Right (09/03/2024 1:09 PM EST) Only the most recent of2 resultswithin the time period is included. Anatomical Region Laterality Modality Lower Extremities, Knee Right Radiogra phic Imaging 09/03/2024 1:09 PM EST Narrative 09/08/2024 12:00 PM EST ? [facility] ? [address] ?[place] [address] ?XRay Report ? Signed ? Patient: Henebury,Cherri J ?MR#: [id number] ?? [id number] ? : 1965 ?Acct:[id number] ? Age/Sex: 59 / F ?ADM Date: 09/03/24 ? Loc: HO.HOSX ? Attending Dr: Becca Rodriguez PA-C ? Ordering Physician: Becca Rodriguez PA-C ?? Date of Service: 09/03/24 ?? Procedure(s): XR knee RT 2V ?? Accession Number(s): [id number] ? cc: Becca Rodriguez PA-C; MANOLO GARCIA NP ? EXAMINATION: ?? XR KNEE, RIGHT ? CLINICAL INFORMATION: ?? M25.569 - Pain in unspecified knee. ? COMPARISON: ?? 08/12/2024, 07/23/2024. ? TECHNIQUE: ?? AP and lateral views of the right knee. ? FINDINGS: ?? Moderate joint effusion. ?? Redemonstration of minimally depressed nondisplaced fracture along the ?? lateral aspect of the lateral tibial plateau. Fracture line is still ?? visible, although there is evidence of bridging callus formation. ? XR/XR knee RT 2V ?? IMPRESSION: ?? Healing depressed fracture along the lateral tibial plateau. ? Electronically signed by: ??Silvia Ruiz MD ??09/08/2024 11:57 AM EST ? Dictated By: ?Silvia Ruiz MD ? Signed By: ?<Electronically signed by Silvia Ruiz MD in OV> ? 09/08/24 1157 ? DD/ 1309 ? TD/TT: 09/03/24 1315 ? Mental Health Nurse: ? Procedure Note Isabel Sanchez - 09/08/2024 [facility] [address] [place] [address] [address] [place] [address] XRay Report Signed Patient: Cherri Nash JMR#: [id number] : 1965Acct:[id number] Age/Sex: 59 / FADM Date: 09/03/24 Loc: ENRIQUE Attending Dr: Becca Rodriguez PA-C Ordering Physician: Becca Rodriguez PA-C Date of Service: 09/03/24 Procedure(s): XR knee RT 2V Accession Number(s): [id number] cc: Becca Rodriguez PA-C; MANOLO GARCIA NP EXAMINATION: XR KNEE, RIGHT CLINICAL INFORMATION: M25.569 - Pain in unspecified knee. COMPARISON: 08/12/2024, 07/23/2024. TECHNIQUE: AP and lateral views of the right knee. FINDINGS: Moderate joint effusion. Redemonstration of minimally depressed nondisplaced fracture along the lateral aspect of the lateral tibial plateau. Fracture line is still visible, although there is evidence of bridging callus formation. XR/XR knee RT 2V IMPRESSION: Healing depressed fracture along the lateral tibial plateau. Electronically signed by: Silvia Ruiz MD 09/08/2024 11:57 AM EST Dictated By: Silvia Ruiz MD Signed By: <Electronically signed by Silvia Ruiz MD in OV> 09/08/24 1157 DD/ 1309 TD/TT: 09/03/24 1315 Mental Health Nurse: [facility] External Provider IMG XR PROCEDURES Edited Result - Final * XR Knee 4+ Views Right (08/12/2024 4:29 PM EST) Anatomical Region Laterality Modality Lower Extremities, Knee Right Radiogra phic Imaging 08/12/2024 4:29 PM EST Narrative 09/08/2024 10:12 AM EST ? [facility] ?[address] ?[place] [address] ?XRay Report ? Signed ? Patient: Henebury,Cherri J ?MR#: [id number] ?? [id number] ? : 1965 ?Acct:[id number] ? Age/Sex: 59 / F ?ADM Date: 12/17/24 ? Loc: HO.CARD ? Attending Dr: Jennifer Sultana NP ? Ordering Physician: MANOLO GARCIA NP ?? Date of Service: 08/12/24 ?? Procedure(s): XR knee RT 4V ?? Accession Number(s): [id number] ? cc: MANOLO GARCIA NP ? EXAMINATION: ?? XR RIGHT KNEE ? CLINICAL INFORMATION: ?? Repeat XR right knee, moderate effusion 04/13/24; s/p fall. Pt states fx ?? of right knee in April. Said orthopedic told her to osmani on ?? it. ? COMPARISON: ?? XR Right knee 07/23/2024 ? TECHNIQUE: ?? 4 views of the right knee. ? FINDINGS: ?? Moderate joint effusion. ?? Redemonstration of minimally depressed nondisplaced fracture along the ?? lateral aspect of the lateral tibial plateau. Alignment is similar. ? XR/XR knee RT 4V ?? IMPRESSION: ? Redemonstration of minimally depressed fracture along the lateral ?? tibial plateau. ? Electronically signed by: ??Silvia Ruiz MD ??09/08/2024 10:09 AM EST ? Dictated By: ?Silvia Ruiz MD ? Signed By: ?<Electronically signed by Silvia Ruiz MD in OV> ? 09/08/24 1009 ? DD/ 1629 ? TD/TT: 08/12/24 1658 ? Mental Health Nurse: ? Procedure Note Daniel, Isabel - 09/08/[address] [address] XRay Report Signed Patient: Cherri Nash JMR#: [id number] : 1965Acct:[id number] Age/Sex: 59 / FADM Date: 08/12/24 Loc: SULY Attending Dr: Jennifer Sultana CLIENT STRATEGIST Ordering Physician: MANOLO GARCIA NP Date of Service: 08/12/24 Procedure(s): XR knee RT 4V Accession Number(s): [id number] cc: MANOLO GARCIA NP EXAMINATION: XR RIGHT KNEE CLINICAL INFORMATION: Repeat XR right knee, moderate effusion 04/13/24; s/p fall. Pt states fx of right knee in April. Said orthopedic told her to tiptoe on it. COMPARISON: XR Right knee 07/23/2024 TECHNIQUE: 4 views of the right knee. FINDINGS: Moderate joint effusion. Redemonstration of minimally depressed nondisplaced fracture along the lateral aspect of the lateral tibial plateau. Alignment is similar. XR/XR knee RT 4V IMPRESSION: Redemonstration of minimally depressed fracture along the lateral tibial plateau. Electronically signed by: Silvia Ruiz MD 09/08/2024 10:09 AM EST RP Dictated By: Silvia Ruiz MD Signed By: <Electronically signed by Silvia Ruiz MD in OV> 09/08/24 1009 DD/ 1629 TD/TT: 08/12/24 1658 Mental Health Nurse: us Manolo HUFFMAN IMG XR PROCEDURES Edited Result - Final * CT Lung Screening Low dose (08/12/2024 9:57 AM EST) Anatomical Region Laterality Modality Lung Computed Tomogra phy 08/12/2024 9:57 AM EST Narrative 09/24/2024 9:09 AM EST ? [facility] ?[address] ?[place] [address] ? CT Scan Report ? Signed ? Patient: Cherri Nash ?MR#: [id number] ?? [id number] ? : 1965 ?Acct:[id number] ? Age/Sex: 59 / F ?ADM Date: 08/12/24 ? Loc: HO.CARD ? Attending Dr: Jennifer Sultana NP ? Ordering Physician: Everton Stephens MD ?? Date of Service: 08/12/24 ?? Procedure(s): CT lung screening ?? Accession Number(s): [id number] ? cc: Everton Stephens MD; MANOLO GARCIA NP ? Report Number: ?? [id number]: Total DLP = ?? 48.00 mGy-cm ?? EXAMINATION: ?? CT LOW-DOSE SCREENING CHEST WITHOUT CONTRAST ? CLINICAL INFORMATION: ?? Personal history of nicotine dependence. The patient is a current ?? smoker with a 40 pack-year history of smoking. ? COMPARISON: ?? CT chest 04/03/2023, 03/06/2022. ?? X-ray chest 11/28/2022. ?? No prior low-dose screening exam. ? TECHNIQUE: ?? Multidetector volumetric CT imaging of the chest is performed on a ?? Siemens SOMATOM Definition scanner without contrast using low dose ?? technique. Additional 2D coronal and sagittal reformatted images and ?? axial 3D maximum intensity projection (MIP) images are generated on the ?? CT workstation. ? This CT examination was performed using dose optimization techniques as ?? appropriate, variously including the following: ?? *Automated exposure control ?? *Adjustment of mA and/or kV according to patient size (this includes ?? techniques or standardized protocols for targeted exams where dose is ?? matched to indication/reason for exam; i.e. extremities or head) ?? *Use of iterative reconstruction technique ? TOTAL EXAM DLP: ?? 48 mGy-cm. ? CTDIvol: ?? 1.40 mGy. ? Exam submitted for review 09/24/2024 7:50 AM WINE CONSULTANT. ? FINDINGS: ? PULMONARY NODULES: ?? -There are a few scattered calcified tiny 2 mm granulomata, unchanged ?? and benign. ?? -Pleural-based possibly calcified 4 mm nodule abutting the distal ?? aortic arch, posterior medial left upper lobe, (series 5, image 153), ?? stable. ?? -3 mm average diameter fissural nodule left mid major fissure (series ?? 5, image 212), unchanged and likely intrapulmonary lymph node. ?? -5 mm partially calcified nodule left posterior costophrenic sulcus ?? (series 5, image 438), unchanged. ?? -No new or enlarging pulmonary nodules. ? LUNGS: ?? -Mild changes of paraseptal emphysema with upper lobe predominance. ?? -Mild biapical scarring bilaterally. ?? -Lungs clear without evidence of abnormal groundglass opacity or ?? consolidation. No evidence of interstitial lung disease. ?? -Mild thickening of the small airways, suggestive of chronic bronchitis. ?? -No pleural effusion or pneumothorax. ? MEDIASTINUM: ?? -Normal thyroid. ?? -A few subcentimeter mediastinal lymph nodes are unchanged, presumably ?? reactive. ?? -Aorta is normal in caliber. ?? -Main pulmonary artery is normal in caliber. ?? -Heart size is normal. No pericardial effusion. ?? -No esophageal abnormality. ?? -Central airways are patent. ? CORONARY ARTERY CALCIFICATION: Mild three-vessel coronary calcification. ? CHEST WALL/AXILLA: Unremarkable. ? UPPER ABDOMEN: ?? -Unchanged hyperattenuating cyst measuring 1.5 cm posterior right upper ?? kidney. ?? -1.5 cm cyst medial upper left kidney. ?? -Remainder of the imaged upper abdominal structures are normal allowing ?? for noncontrast technique. ? OSSEOUS STRUCTURES: ?? -No suspicious lytic or blastic bone lesions. ?? -Mild spinal degenerative changes. ? CT/CT lung screening ?? IMPRESSION: ? 1. Stable scattered calcified and noncalcified benign nodules, without ?? new or enlarging nodule present. ?? 2. Mild paraseptal and centrilobular emphysema. No active pulmonary ?? disease. ?? 3. Mild thickening of the small airways, suggestive of chronic ?? bronchitis. ?? 4. Ancillary findings as discussed. ? ASSESSMENT: ?? 1. Lung-RADS Category 2: Benign appearance or behavior of nodules. ? 2. Lung-RADS Category S: None. ? RECOMMENDATION: ?? Continued routine annual low-dose CT lung screening in 1 year is ?? recommended. An order for CT CHEST LOW DOSE CANCER SCREENING ([id number]) ?? can be placed. ? Electronically signed by: ??Ke Craig MD ??09/24/2024 09:06 AM EST RP ?? Workstation: [id number] ? Dictated By: ?Ke Craig MD ? Signed By: ?<Electronically signed by Ke Craig MD in OV> ?09/24/24 0906 ? DD/ 0957 ? TD/TT: 08/12/24 1027 ? Mental Health Nurse: ? Procedure Note Daniel, Image - 09/24/[address] [address] [address] Scan Report Signed Patient: Cherri Nash JMR#: [id number] : 1965Acct:[id number] Age/Sex: 59 / FADM Date: 08/12/24 Loc: SULY Attending Dr: Jennifer Sultana NP Ordering Physician: Everton Stephens MD Date of Service: 08/12/24 Procedure(s): CT lung screening Accession Number(s): [id number] cc: Everton Stephens MD; MANOLO GARCIA NP Report Number: [id number]: Total DLP = 48.00 mGy-cm EXAMINATION: CT LOW-DOSE SCREENING CHEST WITHOUT CONTRAST CLINICAL INFORMATION: Personal history of nicotine dependence. The patient is a current smoker with a 40 pack-year history of smoking. COMPARISON: CT chest 04/03/2023, 03/06/2022. X-ray chest 11/28/2022. No prior low-dose screening exam. TECHNIQUE: Multidetector volumetric CT imaging of the chest is performed on a Siemens SOMATOM Definition scanner without contrast using low dose technique. Additional 2D coronal and sagittal reformatted images and axial 3D maximum intensity projection (MIP) images are generated on the CT workstation. This CT examination was performed using dose optimization techniques as appropriate, variously including the following: *Automated exposure control *Adjustment of mA and/or kV according to patient size (this includes techniques or standardized protocols for targeted exams where dose is matched to indication/reason for exam; i.e. extremities or head) *Use of iterative reconstruction technique TOTAL EXAM DLP: 48 mGy-cm. CTDIvol: 1.40 mGy. Exam submitted for review 09/24/2024 7:50 AM WINE CONSULTANT. FINDINGS: PULMONARY NODULES: -There are a few scattered calcified tiny 2 mm granulomata, unchanged and benign. -Pleural-based possibly calcified 4 mm nodule abutting the distal aortic arch, posterior medial left upper lobe, (series 5, image 153), stable. -3 mm average diameter fissural nodule left mid major fissure (series 5, image 212), unchanged and likely intrapulmonary lymph node. -5 mm partially calcified nodule left posterior costophrenic sulcus (series 5, image 438), unchanged. -No new or enlarging pulmonary nodules. LUNGS: -Mild changes of paraseptal emphysema with upper lobe predominance. -Mild biapical scarring bilaterally. -Lungs clear without evidence of abnormal groundglass opacity or consolidation. No evidence of interstitial lung disease. -Mild thickening of the small airways, suggestive of chronic bronchitis. -No pleural effusion or pneumothorax. MEDIASTINUM: -Normal thyroid. -A few subcentimeter mediastinal lymph nodes are unchanged, presumably reactive. -Aorta is normal in caliber. -Main pulmonary artery is normal in caliber. -Heart size is normal. No pericardial effusion. -No esophageal abnormality. -Central airways are patent. CORONARY ARTERY CALCIFICATION: Mild three-vessel coronary calcification. CHEST WALL/AXILLA: Unremarkable. UPPER ABDOMEN: -Unchanged hyperattenuating cyst measuring 1.5 cm posterior right upper kidney. -1.5 cm cyst medial upper left kidney. -Remainder of the imaged upper abdominal structures are normal allowing for noncontrast technique. OSSEOUS STRUCTURES: -No suspicious lytic or blastic bone lesions. -Mild spinal degenerative changes. CT/CT lung screening IMPRESSION: 1. Stable scattered calcified and noncalcified benign nodules, without new or enlarging nodule present. 2. Mild paraseptal and centrilobular emphysema. No active pulmonary disease. 3. Mild thickening of the small airways, suggestive of chronic bronchitis. 4. Ancillary findings as discussed. ASSESSMENT: 1. Lung-RADS Category 2: Benign appearance or behavior of nodules. 2. Lung-RADS Category S: None. RECOMMENDATION: Continued routine annual low-dose CT lung screening in 1 year is recommended. An order for CT CHEST LOW DOSE CANCER SCREENING ([id number]) can be placed. Electronically signed by: Ke Craig MD 09/24/2024 09:06 AM EST Dictated By: Ke Craig MD Signed By: <Electronically signed by Ke Craig MD in OV> 09/24/24 0906 DD/ 0957 TD/TT: 08/12/24 1027 Mental Health Nurse: [facility] External Provider IMG CT PROCEDURES Edited Result - Final * US Abdomen Complete (08/12/2024 9:21 AM EST) Anatomical Region Laterality Modality Abdomen Ultrasound 08/12/2024 9:21 AM EST Narrative 09/30/2024 1:30 PM EST ? [facility] ?[address] ?[place] [address] ? Ultrasound Report ? Signed ? Patient: Henebury,Cherri J ?MR#: [id number] ?? [id number] ? : 1965 ?Acct:[id number] ? Age/Sex: 59 / F ?ADM Date: 12/17/24 ? Loc: HO.CARD ? Attending Dr: Jennifer Sultana CLIENT STRATEGIST ? Ordering Physician: Jennifer Sultana NP ?? Date of Service: 08/12/24 ?? Procedure(s): US abdomen complete ?? Accession Number(s): [id number] ? cc: Jennifer Sultana CLIENT STRATEGIST; MANOLO GARCIA CLIENT STRATEGIST ? EXAMINATION: ?? US ABDOMEN COMPLETE ? CLINICAL INFORMATION: ?? Generalized abdominal pain.. ? COMPARISON: ?? 04/10/2023 ?? Correlation made with CT abdomen and pelvis 01/26/2024, and MR abdomen ?? 11/19/2023. ? TECHNIQUE: ?? Real-time imaging of the abdominal viscera. ? Exam submitted for review 09/30/2024 12:17 PM WINE CONSULTANT. ? FINDINGS: ? PANCREAS: Visualized portions are mildly echogenic, most likely mild ?? fatty change. ? ABDOMINAL AORTA: The proximal and mid segments are normal in caliber ?? with atherosclerosis evident. The distal aorta is obscured by gas. ? INFERIOR VENA CAVA: Visualized portions are normal. ? LIVER: Liver is borderline enlarged at 17.9 cm. The liver contour is ?? normal. There is diffuse increased liver parenchymal echogenicity, ?? consistent with hepatic steatosis. ??No focal hepatic lesion. There is ?? no intrahepatic biliary duct dilatation seen. ? GALLBLADDER: The gallbladder is physiologically distended without ?? evidence of stones, sludge, polyps, wall thickening or pericholecystic ?? fluid. ? COMMON BILE DUCT: Normal in caliber measuring 0.4 cm in diameter. ? RIGHT KIDNEY: No hydronephrosis. No renal calculi or suspicious focal ?? parenchymal lesions. The kidney measures 10.0 cm in maximum dimension. ?? Stable simple cyst upper pole measuring 1.0 x 0.9 x 1.0 cm. Mid pole ?? simple cyst measuring 1.2 x 1.1 x 1.4 cm. ? LEFT KIDNEY: No hydronephrosis. No renal calculi or suspicious focal ?? parenchymal lesions. The kidney measures 9.9 cm in maximum dimension. ?? Simple carpal cyst measuring 0.5 x 0.6 x 0.7 cm. Simple lower pole cyst ?? measuring 0.5 x 0.4 x 0.5 cm. ? SPLEEN: The spleen measures 10.2 cm in maximum dimension. There is a ?? small associated 0.8 cm splenule. ? FREE FLUID: None. ? US/US abdomen complete ?? IMPRESSION: ?? 1. Echogenic liver, borderline enlarged without focal lesion, most ?? likely secondary to steatosis. ?? 2. Normal bile ducts and gallbladder. ?? 3. Bilateral renal cysts. ? Electronically signed by: ??Ke Craig MD ??09/30/2024 01:27 PM EST RP ? Dictated By: ?Ke Craig MD ? Signed By: ?<Electronically signed by Ke Craig MD in OV> ?09/30/24 1327 ? DD/ 0921 ? TD/TT: 08/12/24 0947 ? Mental Health Nurse: ? Procedure Note Donotuseinterpreter, Image - 09/30/2024 [place] [address] Ultrasound Report Signed Patient: Cherri Nash JMR#: [id number] : 1965Acct:[id number] Age/Sex: 59 / FADM Date: 08/12/24 Loc: SULY Attending Dr: Jennifer Sultana NP Ordering Physician: Jennifer Sultana NP Date of Service: 08/12/24 Procedure(s): US abdomen complete Accession Number(s): [id number] cc: Jennifer Sultana CLIENT STRATEGIST; MANOLO GARCIA NP EXAMINATION: US ABDOMEN COMPLETE CLINICAL INFORMATION: Generalized abdominal pain.. COMPARISON: 04/10/[address] abdomen and pelvis 01/26/2024, and MR abdomen 11/19/2023. TECHNIQUE: Real-time imaging of the abdominal viscera. Exam submitted for review 09/30/2024 12:17 PM WINE CONSULTANT. FINDINGS: PANCREAS: Visualized portions are mildly echogenic, most likely mild fatty change. ABDOMINAL AORTA: The proximal and mid segments are normal in caliber with atherosclerosis evident. The distal aorta is obscured by gas. INFERIOR VENA CAVA: Visualized portions are normal. LIVER: Liver is borderline enlarged at 17.9 cm. The liver contour is normal. There is diffuse increased liver parenchymal echogenicity, consistent with hepatic steatosis. No focal hepatic lesion. There is no intrahepatic biliary duct dilatation seen. GALLBLADDER: The gallbladder is physiologically distended without evidence of stones, sludge, polyps, wall thickening or pericholecystic fluid. COMMON BILE DUCT: Normal in caliber measuring 0.4 cm in diameter. RIGHT KIDNEY: No hydronephrosis. No renal calculi or suspicious focal parenchymal lesions. The kidney measures 10.0 cm in maximum dimension. Stable simple cyst upper pole measuring 1.0 x 0.9 x 1.0 cm. Mid pole simple cyst measuring 1.2 x 1.1 x 1.4 cm. LEFT KIDNEY: No hydronephrosis. No renal calculi or suspicious focal parenchymal lesions. The kidney measures 9.9 cm in maximum dimension. Simple carpal cyst measuring 0.5 x 0.6 x 0.7 cm. Simple lower pole cyst measuring 0.5 x 0.4 x 0.5 cm. SPLEEN: The spleen measures 10.2 cm in maximum dimension. There is a small associated 0.8 cm splenule. FREE FLUID: None. US/US abdomen complete IMPRESSION: 1. Echogenic liver, borderline enlarged without focal lesion, most likely secondary to steatosis. 2. Normal bile ducts and gallbladder. 3. Bilateral renal cysts. Electronically signed by: Ke Craig MD 09/30/2024 01:27 PM EST Dictated By: Ke Craig MD Signed By: <Electronically signed by Ke Craig MD in OV> 09/30/24 1327 DD/ 0921 TD/TT: 08/12/24 0947 Mental Health Nurse: Jennifer Sultana NP IMG US PROCEDURES Final Result * NM Gastric Emptying Solid (07/30/2024 8:43 AM EST) Anatomical Region Laterality Modality Body Nuclear Medicine 07/30/2024 8:43 AM EST Narrative 07/31/2024 3:11 PM EST ? [facility] ?[address] ?[place] [address] ?Nuclear Medicine Report ? Signed ? Patient: Henebury,Cherri J ?MR#: [id number] ?? [id number] ? : 1965 ?Acct:[id number] ? Age/Sex: 59 / F ?ADM Date: 12/04/24 ? Loc: HO.NUCMED ? Attending Dr: Andrew Bruno MD ? Ordering Physician: Andrew Bruno MD ?? Date of Service: 07/30/24 ?? Procedure(s): NM gastric emptying study ?? Accession Number(s): [id number] ? cc: Andrew Bruno MD; MANOLO GARCIA NP ? EXAMINATION: ?? NM RADIONUCLIDE SOLID FOOD GASTRIC EMPTYING 4-HOUR STUDY ? CLINICAL INFORMATION: ?? Early satiety. ? COMPARISON: ?? CT of the abdomen and pelvis done on 01/26/2024. Planar and SPECT CT of ?? the liver and spleen done on 02/14/2024. ? TECHNIQUE: ?? A standard meal consisting of 4 oz of Egg Beaters brand tagged with 720 ?? microcuries Tc-99m Sulfur Colloid, 8 oz water and 2 slices of toast ?? with jelly was administered orally to the patient. Images were obtained ?? using a dual head gamma camera in the anterior and posterior ?? projections over of the stomach immediately post ingestion and at ?? hourly intervals up to 4 hours post ingestion. The anterior and ?? posterior counts at each time interval were averaged using the ?? geometric mean and expressed as percentage of the immediate post ?? ingestion counts. ? FINDINGS: ?? There is good visualization of activity in the stomach immediately post ?? ingestion. As the study progresses, there is delayed clearance of ?? activity from the stomach and partial visualization of progressively ?? increasing small bowel activity. By the end of the study, there is ?? significant retention noted in the stomach. Retention in the stomach at ?? each time interval was: ? 1 hour 89% (normal 37%-90%) ?? 2 hours 73% (normal 30%-60%) ?? 3 hours 66% ?? 4 hours 57% (normal 0%-10%) ? NM/NM gastric emptying study ?? IMPRESSION: ?? Abnormal grade 4 delayed 4-hour solid food gastric emptying study. ? For solid meal, rapid gastric emptying is less than 30% at 60 minutes. ?? Delayed gastric emptying criteria is more than 60% remaining at 120 ?? minutes or more than 10% at 240 minutes. The 4-hour value is the best ?? discriminator of a normal or abnormal result). ? Gastric emptying study grading per JNMT Consensus Recommendations in ?? 2007 (https://tech.snmjournals.org/content/36/1/44) ? Grade 1 (mild retention): 11-20% at 4h ?? Grade 2 (moderate retention): 21-35% at 4h ?? Grade 3 (severe retention): 36-50% at 4h ?? Grade 4 (very severe retention): >50% retention at 4h ? Electronically signed by: ??Fede Fuchs MD ??07/31/2024 03:08 PM EST ?? RP ? Dictated By: ?Fede Fuchs MD ? Signed By: ?<Electronically signed by Fede Fuchs MD in OV> ? 07/31/24 1508 ? DD/ 0843 ? TD/TT: 07/30/24 1325 ? Mental Health Nurse: PK ? Procedure Note Daniel, Isabel - 07/31/2024 [place] [address] Nuclear Medicine Report Signed Patient: Cherri Nash JMR#: [id number] : 1965Acct:[id number] Age/Sex: 59 / FADM Date: 07/30/24 Loc: ANNE-MARIE Attending Dr: Andrew Bruno MD Ordering Physician: Andrew Bruno MD Date of Service: 07/30/24 Procedure(s): NM gastric emptying study Accession Number(s): [id number] cc: Andrew Bruno MD; MANOLO GARCIA NP EXAMINATION: NM RADIONUCLIDE SOLID FOOD GASTRIC EMPTYING 4-HOUR STUDY CLINICAL INFORMATION: Early satiety. COMPARISON: CT of the abdomen and pelvis done on 01/26/2024. Planar and SPECT CT of the liver and spleen done on 02/14/2024. TECHNIQUE: A standard meal consisting of 4 oz of Egg Beaters brand tagged with 720 microcuries Tc-99m Sulfur Colloid, 8 oz water and 2 slices of toast with jelly was administered orally to the patient. Images were obtained using a dual head gamma camera in the anterior and posterior projections over of the stomach immediately post ingestion and at hourly intervals up to 4 hours post ingestion. The anterior and posterior counts at each time interval were averaged using the geometric mean and expressed as percentage of the immediate post ingestion counts. FINDINGS: There is good visualization of activity in the stomach immediately post ingestion. As the study progresses, there is delayed clearance of activity from the stomach and partial visualization of progressively increasing small bowel activity. By the end of the study, there is significant retention noted in the stomach. Retention in the stomach at each time interval was: 1 hour 89% (normal 37%-90%) 2 hours 73% (normal 30%-60%) 3 hours 66% 4 hours 57% (normal 0%-10%) NM/NM gastric emptying study IMPRESSION: Abnormal grade 4 delayed 4-hour solid food gastric emptying study. For solid meal, rapid gastric emptying is less than 30% at 60 minutes. Delayed gastric emptying criteria is more than 60% remaining at 120 minutes or more than 10% at 240 minutes. The 4-hour value is the best discriminator of a normal or abnormal result). Gastric emptying study grading per JNMT Consensus Recommendations in 2008 (https://tech.snmjournals.org/content/36/44) Grade 1 (mild retention): 11-20% at 4h Grade 2 (moderate retention): 21-35% at 4h Grade 3 (severe retention): 36-50% at 4h Grade 4 (very severe retention): >50% retention at 4h Electronically signed by: Fede Fuchs MD 07/31/2024 03:08 PM EST Dictated By: Fede Fuchs MD Signed By: <Electronically signed by Fede Fuchs MD in OV> 07/31/24 1508 DD/ 0843 TD/TT: 07/30/24 1325 Mental Health Nurse: BONNIE [facility] External Provider IMG NM PROCEDURES Edited Result - Final * POCT Urinalysis (07/28/2024 2:43 PM EST) Color, UA Yellow Clarity, UA Clear Glucose, UA Negative Bilirubin, UA Negative Ketones, UA Negative Spec Grav, UA 1.025 Blood, UA Negative Negative, None Detected pH, UA 5.5 Protein, UA Negative Urobilinogen, UA 0.2 Leukocytes, UA Negative Negative, Rare, Trace Nitrite, UA Negative Negative, None Detected Appearance, UA Dark Yellow QC Media Lot # [id number] Lot# Expiration Date Urine 07/28/2024 2:43 PM EST us Jennifer Sultana [place] POINT OF CARE TEST ENTER/EDIT OR DERABLES Final Result * BI Mammogram Screening Tomosynthesis Bilateral (06/19/2024 1:23 PM EDT) Anatomical Region Laterality Modality Breast Bilateral Mammography 06/19/2024 1:23 PM EDT Narrative 06/28/2024 10:33 AM EDT ? [facility] ? [address] ?[place] [address] ? Mammography Report ? Signed ? Patient: Cherri Nash J ?MR#: [id number] ?? [id number] ? : 1965 ?Acct:[id number] ? Age/Sex: 59 / F ?ADM Date: 06/19/ ? Loc: HO.MAMMO ? Attending Dr: Manolo Garcia CLIENT STRATEGIST ? Ordering Physician: RADHA,MANOLO FARRIS ?Results: 1Negative ? Date of Service: 06/19/ ?Follow Up: 1 Year From Orig ?? inal Mammogram ? Procedure(s): MM tomosynthesis screening BI ?? Accession Number(s): [id number] ? cc: RADHA,MANOLO FARRIS ? EXAMINATION: ?? MM SCREENING DIGITAL BREAST TOMOSYNTHESIS, BILATERAL ? CLINICAL INFORMATION: ? Screening. Asymptomatic. ? COMPARISON: ?? Mammography: Comparison is made with available priors ? TECHNIQUE: ?? Digital breast mammography with tomosynthesis is performed in both the ?? craniocaudal and mediolateral oblique views along with computer-aided ?? detection (CAD). ? FINDINGS: ?? The breasts are heterogeneously dense, which may obscure small masses ?? (ACR BI-RADS breast composition Category c). ? There are no significant masses, abnormal calcifications, or other ?? abnormalities. ? MM/MM tomosynthesis screening BI ?? IMPRESSION: ?? No mammographic evidence of malignancy. ? ASSESSMENT: ? BI-RADS BI-RADS 1 - Negative ? RECOMMENDATION: ?? Routine annual mammography screening. ? 1 year F/U ? This examination should not preclude the clinical evaluation of a ?? suspicious palpable abnormality. ? This patient's information was entered into a reminder system with a ?? target due date for their next mammogram. ? Electronically signed by: ??Sally Hernandez DO ??06/28/2024 10:30 AM EDT ? Dictated By: ?Sally Hernandez DO ? Signed By: ?<Electronically signed by Sally Hernandez, DO in OV> ? 06/28/24 1030 ? DD/ 1323 ? TD/TT: 06/19/24 1336 ? Mental Health Nurse: ? Procedure Note Daniel, Image - 06/28/2024 [facility] [address] [place] [address] [place] [address] Mammography Report Signed Patient: Cherri Nash R#: [id number] : 1965Acct:[id number] Age/Sex: 59 / FADM Date: 06/19/24 Loc: ARAVINDO Attending Dr: Manolo Garcia CLIENT STRATEGIST Ordering Physician: MANOLO GARCIAesults: 1Negative Date of Service: 06/19/24Follow Up: 1 Year From Orig inal Mammogram Procedure(s): MM tomosynthesis screening BI Accession Number(s): [id number] cc: MANOLO GARCIA NP EXAMINATION: MM SCREENING DIGITAL BREAST TOMOSYNTHESIS, BILATERAL CLINICAL INFORMATION: Screening. Asymptomatic. COMPARISON: Mammography: Comparison is made with available priors TECHNIQUE: Digital breast mammography with tomosynthesis is performed in both the craniocaudal and mediolateral oblique views along with computer-aided detection (CAD). FINDINGS: The breasts are heterogeneously dense, which may obscure small masses (ACR BI-RADS breast composition Category c). There are no significant masses, abnormal calcifications, or other abnormalities. MM/MM tomosynthesis screening BI IMPRESSION: No mammographic evidence of malignancy. ASSESSMENT: BI-RADS BI-RADS 1 - Negative RECOMMENDATION: Routine annual mammography screening. 1 year F/U This examination should not preclude the clinical evaluation of a suspicious palpable abnormality. This patient's information was entered into a reminder system with a target due date for their next mammogram. Electronically signed by: Sally Hernandez DO 06/28/2024 10:30 AM EDT Dictated By: Sally Hernandez DO Signed By: <Electronically signed by Sally Hernandez DO in OV> 06/28/24 1030 DD/ 1323 TD/TT: 06/19/24 1336 Mental Health Nurse: Manolo Garcia ANP IMG BI PROCEDURES Final Result * (ABNORMAL) Lipid Panel, Standard (05/02/2024 2:55 PM EDT) Triglycerides 286(H) <150 mg/dL [facility] Comment:Desirable Triglyceri de: less than 150 mg/dLBorderline High Triglyceride 150-199 mg/dLHigh Triglyceride: 200-499 mg/dLVery High Triglyceride: greater than or equal to 5OO mg/dL Cholesterol 216(H) <200 mg/dL [facility] Comment:Desirable Cholestero l: less than 200 mg/dLBorderline High Cholesterol: 200-239 mg/dLHigh Cholesterol: greater than 239 mg/dL LDL Cholesterol Calculated 123(H) <100 mg/dL [facility] Comment:Desirable LDL: less than 100 mg/dLNear Optimal/Above Optimal LDL: 110- 129 mg/dLBorderline High LDL: 130-159 mg/dLHigh LDL: 160-189 mg/dLVery High LDL: greater than or equal to 190 mg/dL HDL Cholesterol 36(L) >40 mg/dL [facility] Comment:Desirable HDL: great er than 40 mg/dL Note: This HDL assay may give artificially low results in patients with liver disease. 05/02/2024 2:55 PM EDT 05/02/2024 4:04 PM EDT Manolo HUFFMAN LAB BLOOD ORDERABLES Final Resul t Performing Organization Address [facility] Co de Phone Number [facility] [address] [place] [phone] * HIV 1/2 ANTIGEN/ANTIBODY,FOURTH GENERATION W/RFL (05/08/2022 2:27 PM EDT) Pathologist [facility] HIV-1/2 ANTIGEN AND ANTIBODIES, 4TH GENERATION W/ REFLEX NON-REACT IRON NON-REACT IRON [facility] Comment: HIV-1 antigen and HIV-1/HIV-2 antibodies were not detected. There is no laboratory evidence of HIV infection. ?? PLEASE NOTE: This information has been disclosed to you from records whose confidentiality may be protected by state law. ??If your state requires such protection, then the state law prohibits you from making any further disclosure of the information without the specific written consent of the person to whom it pertains, or as otherwise permitted by law. A general authorization for the release of medical or other information is NOT sufficient for this purpose. ? For additional information please refer to http://education.Currensee.Swiss[employer] Mobile/faq/AYA138 (This link is being provided for informational/ educational purposes only.) ? The performance of this assay has not been clinically validated in patients less than 2 years old. ?? 05/08/2022 2:27 PM EDT us Manolo HUFFMAN LAB BLOOD ORDERABLES Final Resul t [facility] [address] [place] [address], * Hm Colonoscopy (04/12/2018) Colonoscopy Normal Normal Historical Provider HEALTH MAINTENANCE Final Result * HPV mRNA E6/E7 (10/25/2016 9:30 AM EST) HPV mRNA E6/E7 Not Detected NOT DETECTED [facility] Comment: This test was performed using the APTIMA(R) HPV Assay ([employer] This assay detects E6/E7 viral messenger RNA (mRNA) from 14 high-risk HPV types (16,18,31,33,35,39,45,51, 52,56,58,59,66,68). For additional information please refer to: http://education.Reflex Systems/faq/HBI386n6 (This link is being provided for informational/ educational purposes only.) Test Performed by [employer], [facility], [address] [place] [address] Naif Pereira M.D., Ph.D., Director of Laboratories , [facility] [id number] Please note: ??Effective 05/08/2016, HPV testing will be performed using [employer]'s APTIMA test which targets mRNA. Detecting mRNA instead of DNA, as in older methods, offers significant improvements in specificity. 10/25/2016 9:3 0 AM EST Hazel Corcoran MD HISTORICAL/NON ORDERABLE LABS Final Result Performing Organization Address [facility]/ZIP Co de Phone Number [facility] [address] from Last 3 Months or Most Recently Relevant to Health Maintenance Insurance C3 Care Teams Manager Trainee Relationship Specialty Start Date End Date Jennifer Sultana NP [address] [place] [phone] PCP - General Family Medicine 07/28/24 Juanito Srinivasan Butadiene Converter Utility Operator 05/10/23 Francisco J Palomino Butadiene Converter Utility OperatorDie Engraver 05/16/23 Fawad Vargas Butadiene Converter Utility OperatorDie Engraver 08/11/24
--- OUTSIDE RECORDS SUMMARY | 2024-10-22 17:51 | XMS_ITS | Encounter Summary ---
Demographics Address [address] [facility] [address] [place] [address] Mobile Phone Work Phone Email Address Preferred Language en Marital Status Buddhist Affiliation Unknown Race White Ethnic Group Unknown Author Organization [employer] Address [address] [facility] [address] [place] [address] Care Team Providers Care Station Engineer Name Role Phone Jennifer Sultana NP Primary Care Provider [phone] Reason for Visit * Reason Comments Med Refill Encounter Details Date Type Department Care Team ([facility] Contact Info) Description 08/10/2024 Refill [facility] [address] [place], [place] [phone] Ju Khan, ANP [address] [place] [address] Spondylosis 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 Social History Tobacco Use Types Packs/Day Years [...] as of this encounter Visit Diagnoses Diagnosis Spondylosis 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 documented in this encounter Additional Health Concerns Assessment Noted Time PHQ-9 Depression Total Score: 27 024 2:31 PM EST documented as of this encounter Care Teams Station Engineer Relationship Specialty Start Date End Date Jennifer Sultana NP [address] [place] [phone] PCP - General Family Medicine 07/28/24 Juanito Srinivasan Manifold Operator 05/10/23 Francisco J Palomino Manifold OperatorSecured Entrance Monitor 05/16/23 Fawad Vargas Manifold OperatorSecured Entrance Monitor 08/11/24 documented as of this encounter
--- OUTSIDE RECORDS SUMMARY | 2024-10-22 17:51 | XMS_ITS | Encounter Summary ---
Author Organization [employer] Address [address] [facility] 7t [place] [address] Care Team Providers Care Sifter And Miller Name Role Phone Jennifer Sultana NP Primary Care Provider [phone] Reason for Visit * Reason Onset Date Comments Referral 09/18/2024 Encounter Details Date Type Department Care Team ([facility] Contact Info) Description 09/18/2024 Telephone [facility] MED[facility]INE [address] [place], [place] [phone] Jennifer Sultana NP [address] [place], [place] [phone] Referral Social History Tobacco Use Types Packs/Day [...] encounter Miscellaneous Notes * Telephone Encounter - Goldie Taylor RN - 09/23/2024 2:24 PM EST T/C to pt to advise that pcp placed nephrology referral. No answer, v/m left to return call to [facility] nurses. * Telephone Encounter - Goldie Taylor RN - 09/22/2024 10:17 AM EST T/C to pt to advise that request for new nephrology referral has been sent to pcp. No answer, v/m left to return call to [facility] nurses. * Telephone Encounter - Kristi Coburn - 09/19/2024 11:52 AM EST Tc from pt returning phone call. * Telephone Encounter - Pattie Carpenter RN - 09/19/2024 9:21 AM EST TC placed to pt regarding referral request. No answer, LVM to call office back and ask to speak to the blue team nurses. * Telephone Encounter - Jayne Holland - 09/18/2024 11:24 AM EST Tc from pt requesting a referral urology Facility : [facility] Pt stated provider is aware of kidney condition Contact pt at [phone] documented in this encounter Plan of Treatment Not on file documented as of this encounter Visit Diagnoses Not on filedocumented in this encounter Additional Health Concerns Assessment Noted Time PHQ-9 Depression Total Score: 27 024 2:31 PM EST documented as of this encounter Care Teams Sifter And Miller Relationship Specialty Start Date End Date Jennifer Sultana NP [address] [place] [phone] PCP - General Family Medicine 07/28/24 Juanito Srinivasan R D Engineer 05/10/23 Francisco J Palomino R D EngineerRubber Stamp Die Inspector 05/16/23 Fawad Vargas R D EngineerRubber Stamp Die Inspector 08/11/24 documented as of this encounter
--- OUTSIDE RECORDS SUMMARY | 2024-10-22 17:51 | XMS_ITS | Encounter Summary ---
Demographics Address [address] [facility] [address] [place] [address] Mobile Phone Work Phone Email Address Preferred Language en Marital Status Nondenominational Affiliation Unknown Race White Ethnic Group Unknown Author Organization [employer] Address [address] [facility] 7t [place] [address] Care Team Providers Care Research Assoc Name Role Phone Jennifer Sultana NP Primary Care Provider [phone] Encounter Details Date Type Department Care Team ([facility] Contact Info) Description 10/22/2024 Orders Only GENERIC EXTERNAL DATA DEPARTMENT Provider, Generic External Data Social History Tobacco Use Types Packs/Day Years [...] the past 12 months, has t he [employer] oil or water [email or web address] threatened to shut off services in your [...] on file documented as of this encounter Procedures Procedure Name Priority Date/Time Associated Diagnosis Comments VITAMIN D,25-OH,TOTAL,IA Routine 10/22/2024 3:55 PM EST CBC WITH AUTO DIFFERENTIAL Routine 10/22/2024 3:55 PM EST IRON AND TOTAL IRON BINDING CAPACITY Routine 10/22/2024 3:55 PM EST PTH, INTACT WITHOUT CALCIUM Routine 10/22/2024 3:55 PM EST FERRITIN Routine 10/22/2024 3:55 PM EST PROTEIN CREATININE RATIO, URINE Routine 10/22/2024 3:49 PM EST URINALYSIS WITH REFLEX TO MICROSCOPIC Routine 10/22/2024 3:49 PM EST documented in this encounter Results * (ABNORMAL) Vitamin D, 25-Hydroxy, Total, Immunoassay (10/22/2024 3:55 PM EST) Vitamin D 25-OH Total 21.7(L) >30 ng/mL [facility] Comment:Health Based Referen ce Values*< 20 ng/mL Appblhfnu66-15 ng/mL Insufficient> 30 ng/mL Sufficient*Micki ALFARO. N [...] ORDERAB LES Final Result Performing Organization Address [facility] Co de Phone Number [facility] [address] [place] [phone] * Ferritin (10/22/2024 3:55 PM EST) Ferritin 44 10 - 250 ng/mL [facility] 10/22/2024 3:55 PM EST 10/22/2024 3:55 PM EST Generic External Data Provider LAB BLOOD ORDERAB LES Final Result Performing Organization Address [facility] Phone Number [facility] [address] [place] [phone] * Iron And Total Iron Binding Capacity (10/22/2024 3:55 PM EST) Iron 47 30 - 160 mcg/dL [facility] Total Iron Binding Capacity 273 228 - 428 mcg/dL [facility] Percent Iron Saturation 17 15 - 50 % [facility] Unsaturated Iron Binding 226 ug/dL [facility] 10/22/2024 3:55 PM EST 10/22/2024 3:55 PM EST Generic External Data Provider LAB BLOOD ORDERAB LES Final Result Performing Organization Address [facility] Co de Phone Number [facility] [address] [place] [phone] * (ABNORMAL) PTH, Intact Without Calcium (10/22/2024 3:55 PM EST) Parathyroid Hormone, Intact 188.2(H) 8.7 - 77.1 pg/mL [facility] 10/22/2024 3:55 PM EST 10/22/2024 3:55 PM EST us Generic External Data Provider LAB BLOOD ORDERAB LES Final Result Performing Organization Address City/State/[facility] Co de Phone Number [facility] [address] [place] [address] [phone] * (ABNORMAL) CBC auto differential (10/22/2024 3:55 PM EST) White Blood Count 9.9 4.8 - 10.8 X10*3/uL [facility] Red Blood Count 4.59 4.20 - 5.50 X10*6/uL [facility] Hemoglobin 13.0 12.0 - 16.0 g/dl [facility] Hematocrit 38.3 37.0 - 47.0 % [facility] Mean Corpuscular Volume 83.4 80.0 - 98.0 fL [facility] Mean Corpuscular Hemoglobin 28.3 27.0 - 33.0 pg [facility] Mean Corpuscular HGB Conc 33.9 31.0 - 35.0 g/dl [facility] Red Cell Distribution Width 16.3(H) 11.0 - 16.0 % [facility] Platelet Count 214 160 - 400 X10*3/uL [facility] Mean Platelet Volume 11.4 9.4 - 12.3 fL [facility] Neutrophils Percent Auto 66.6 45 - 73 % [facility] Imm Gran Pct Auto 0.3 0.0 - 0.4 % [facility] Lymphocytes Percent Auto 20.1 20 - 40 % [facility] Monocytes Percent Auto 4.3 2 - 11 % [facility] Eosinophils Percent Auto 8.3(H) 0 - 4 % [facility] Basophils Percent Auto 0.4 0 - 2 % [facility] NRBC Pct Auto 0.0 0.0 - 0.2 /100WBC [facility] Neutrophils Absolute Auto 6.6 2.0 - 8.3 x10*3/uL [facility] Imm Gran Abs Auto 0.03 0.00 - 0.03 X10*3/uL [facility] Lymphocytes Absolute Auto 2.0 1.2 - 4.9 X10*3/uL [facility] Monocytes Absolute Auto 0.4 0.1 - 1.2 X10*3/uL [facility] Eosinophils Absolute Auto 0.8(H) 0.0 - 0.4 X10*3/uL [facility] Basophils Absolute Auto 0.0 0.0 - 0.2 X10*3/uL [facility] NRBC Abs Auto 0.000 0.0 - 0.012 X10*3/uL [facility] 10/22/2024 3:55 PM EST 10/22/2024 3:55 PM EST us Generic External Data Provider LAB BLOOD ORDERAB LES Final Result Performing Organization Address City/[facility] Co de Phone Number [facility] [address] [place] [phone] * Protein Creatinine Ratio, Urine (10/22/2024 3:49 PM EST) Creatinine, Urine 30.12 mg/dL [facility] Protein, Total, Random Urine <7 <12 mg/dL [facility] Protein/Creatin ine Ratio, Ur TNP <0.2 [facility] Comment:Unable to calculate urine protein creatinine ratio due tolow creatinine or protein result. 10/22/2024 3:49 PM EST 10/22/2024 4:08 PM EST us Generic External Data Provider LAB URINE ORDERAB LES Final Result Performing Organization Address City/[facility] Co de Phone Number [facility] [address] [place] [phone] * Urinalysis with Reflex to Microscopic (10/22/2024 3:49 PM EST) Color Urine Yellow [facility] Appearance Urine Clear [facility] PH 6.5 5.0 - 9.0 [facility] Glucose Urine UA Negative Negative mg/dL [facility] Urine Blood Negative Negative [facility] Specific [place] - Urine <=1.005 1.005 - 1.025 [facility] Urine Protein Negative Neg-Trace mg/dL [facility] Urine Ketones Negative Negative mg/dL [facility] Nitrite Urine Negative Negative [facility] Leukocyte Esterase Urine Negative Negative [facility] 10/22/2024 3:49 PM EST 10/22/2024 4:08 PM EST us Generic External Data Provider LAB URINE ORDERAB LES Final Result Performing Organization Address City/State/[facility] Co de Phone Number [facility] [address] [place] [phone] documented in this encounter Visit Diagnoses Not on filedocumented in this encounter Additional Health Concerns Assessment Noted Time PHQ-9 Depression Total Score: 27 024 2:31 PM EST documented as of this encounter Care Teams Research Assoc Relationship Specialty Start Date End Date Jennifer Sultana NP [address] [place] [phone] PCP - General Family Medicine 07/28/24 Juanito Srinivasan Religious Education Teacher 05/10/23 Francisco J Palomino Religious Education TeacherAnesthesia Director 05/16/23 Fawad Vargas Religious Education TeacherAnesthesia Director 08/11/24 documented as of this encounter
--- OUTSIDE RECORDS SUMMARY | 2024-10-22 17:51 | XMS_ITS | Encounter Summary ---
Author Organization [employer] Address 75 [facility] 7t [place] [address] Care Team Providers Care Hockey Player Name Role Phone Ju Khan Primary Care Provider [phone] Jennifer Sultana NP Primary Care Provider [phone] Reason for Visit * Reason Onset Date Comments Med Refill 03/22/2023 Encounter Details Date Type Department Care Team ([facility] st Contact Info) Description 03/22/[address] [facility] MEDICINE 230 [place], [place] [phone] Ju Khan ANP 230 [place], [place] [phone] Med Refill Social History Tobacco Use Types Packs/Day Years [...] encounter Miscellaneous Notes * Telephone Encounter - Radha Diop LPN - 03/22/2023 11:36 AM EDT Medication isn't prescribed by PCP. * Telephone Encounter - Kristan Mahan - 03/22/2023 11:29 AM EDT Tc from patient requesting a med refill for medication Adderall XR 30 MG [address] Khan documented in this encounter Plan of Treatment Not on file documented as of this encounter Visit Diagnoses Not on filedocumented in this encounter Additional Health Concerns Assessment Noted Time PHQ-9 Depression Total Score: 9 12/01/19 23 10:12 AM EDT documented as of this encounter Care Teams Hockey Player Relationship Specialty Start Date End Date Ju Khan ANP 230 [place] [address] PCP - General Family Medicine 03/20/22 07/27/24 Jennifer Sultana NP 230 [place] [address] PCP - General Family Medicine 07/28/24 Juanito Srinivasan Assignment Desk Editor 05/10/23 Francisco J Palomino Assignment Desk EditorExterminator 05/16/23 Fawad Vargas Assignment Desk EditorExterminator 08/11/24 documented as of this encounter
--- OUTSIDE RECORDS SUMMARY | 2024-10-22 17:51 | XMS_ITS | Encounter Summary ---
Author Organization [employer] Address [address] [facility] [address] [address] 7t [place] [address] Care Team Providers Care Employee Relations Representative Name Role Phone Jennifer Sultana NP Primary Care Provider [phone] Encounter Details Date Type Department Care Team ([facility] Contact Info) Description 08/12/2024 Telephone [facility] MEDICINE 230 [place], [place] [phone] Jennifer Sultana NP 230 [place] [address] Social History Tobacco Use Types Packs/Day Years [...] documented as of this encounter Care Teams Employee Relations Representative Relationship Specialty Start Date End Date Jennifer Sultana NP 230 [place] [address] PCP - General Family Medicine 07/28/24 Juanito Srinivasan Dam Tender 05/10/23 Francisco J Palomino Dam TenderFell Cutter 05/16/23 Fawad Vargas Dam TenderFell Cutter 08/11/24 documented as of this encounter
--- OUTSIDE RECORDS SUMMARY | 2024-10-22 17:51 | XMS_ITS | Encounter Summary ---
Demographics Address [address] [facility] [address] [place] [address] Mobile Phone Work Phone Email Address Preferred Language en Marital Status Alevism Affiliation Unknown Race White Ethnic Group Unknown Author Organization [employer] Address [address] [facility] [address] 7t [place] [address] Care Team Providers Care Adhesion Tester Name Role Phone Kayy Jennifer FARRIS Primary Care Provider [phone] Encounter Details Date Type Department Care Team (Latest Contact Info) Description 10/07/2024 Travel Social History Tobacco Use Types Packs/Day Years [...] documented as of this encounter Care Teams Adhesion Tester Relationship Specialty Start Date End Date Jennifer Sultana NP 230 [place] [address] PCP - General Family Medicine 07/28/24 Juanito Srinivasan Surgical Brace Maker 05/10/23 Francisco J Palomino Surgical Brace MakerElectronic Engineering Technician 05/16/23 Fawad Vargas Surgical Brace MakerElectronic Engineering Technician 08/11/24 documented as of this encounter
--- OUTSIDE RECORDS SUMMARY | 2024-10-22 17:51 | XMS_ITS | Clinical Summary ---
Author Organization [address] [place] [address] Address 175 [place] [address] Phone Care Team Providers Care Woodworking Craftsman Name Role Phone Jennifer Sultana PRATIK Primary Care Provider [phone] Allergies Active Allergy Reactions Criticality Noted Date Comments Amoxicillin 09/30/2024 Aspirin 09/30/2024 Sulfamethoxazole-Trimethoprim 2024 Citalopram 09/30/2024 Codeine 09/30/2024 Haloperidol 09/30/2024 Lamotrigine 09/30/2024 Morphine 09/30/2024 Penicillins 09/30/2024 Sulfa (Sulfonamide Antibiotics) 11/2024 Encounters Date Type Department Care Team Description 09/30/2024 1:15 PM EST Consult Orthopedic Surgery - [place] [address] [address] Artie Goodrich, LEENA Pain in both feet (Primary Dx); Arthritis of both feet; Hammertoes of both feet; Xerosis cutis; Dermatophytosis, nail from Last 3 Months Social History Tobacco Use Types Packs/Day Years Used Date Smoking Tobacco: Never Assessed Comments Unknown Sex and Gender Information Value Date Recorded Sex Assigned at Not on file Legal Sex Female 3:08 PM EST Gender Identity Not on file Sexual Orientation Not on file Last Filed Vital Signs Vital Sign Reading Time Taken Comments Blood Pressure - - Pulse - - Temperature - - Respiratory Rate - - Oxygen Saturation - - Inhaled Oxygen Concentration - - Weight 84.4 kg (186 lb) 09/30/2024 1:32 PM EST Height 165.1 cm (5' 5 ) 09/30/2024 1:32 PM EST Body Mass Index 30.95 09/30/2024 1:32 PM EST Plan of Treatment Upcoming Encounters Date Type Department Care Team (Late st Contact Info) Description 12/02/2024 1:15 PM EDT Office Visit Orthopedic Surgery - [place] [address] 175 [facility] [address] [place] [address] Artie Goodrich, DPM [address] [facility] [address] [place] [address] [place] [address] Health Maintenance Due Date Last Done Comments Breast Cancer Screening 1965 Hepatitis A Vaccines (1 of 2 - Risk 2-dose series) 1986 Hepatitis B Vaccines (1 of 3 - 19+ 3-dose series) 1986 Cervical Cancer Screening: Pap Smear 02/11/1988 Colorectal Cancer Screening: Colonoscopy 08/19/2024 Hepatitis C Screening 08/19/2024 Social Influencers of Health Screening 08/19/2024 Hypertension/CHF/CAD Annual BMP Blood Test 09/30/2024 Depression Screening 07/28/2025 07/28/2024 DTaP,Tdap,and Td Vaccines (3 - Td or Tdap) 10/25/2026 10/25/2016, 03/04/2010 Cholesterol Screening (Lipid Panel) 05/02/2029 05/02/2024 Zoster Vaccines Completed 09/22/2019, 06/23/2019 HIV Screening Completed 05/08/2022 Pneumococcal Vaccine: 50+ Years Completed 12/18/2022, 06/23/2019, 02/09/2017, Additional history exists Pneumococcal Vaccine: Pediatrics (0 to 5 Years) and At-Risk Patients (6 to 64 Years) Completed 12/18/2022, 06/23/2019, 02/09/2017, Additional history exists [...] on patient's age to complete this topic MMR Vaccines Aged Out No longer eligi ble based on patient's age to complete this topic Meningococcal ACWY Vaccine Aged Out N o longer eligible based on patient's age to complete this topic Meningococcal B Vacine Aged Out No lo nger eligible based on patient's age to complete this topic RSV Immunization Patients Under 20 months Aged Out No longer eligible based on patient's age to complete this topic Varicella Vaccines Aged Out No longer eligible based on patient's age to complete this topic Insurance MEDICAID - [place] Care Teams Woodworking Craftsman Relationship Specialty Start Date End Date Jennifer Sultana FNP [address] [place] [id number] PCP - General Nurse Practitioner 08/18/24
--- OUTSIDE RECORDS SUMMARY | 2024-10-22 17:51 | XMS_ITS | Encounter Summary ---
Author Organization [employer] Address 75 [facility] 7t [place] [address] Care Team Providers Care Basketball Referee Name Role Phone Ju Khan Primary Care Provider [phone] Jennifer Sultana NP Primary Care Provider [phone] Reason for Visit * Reason Onset Date Comments PT1 02/06/2024 Encounter Details Date Type Department Care Team ([facility] Contact Info) Description 02/06/2024 Telephone [facility] MEDICINE 230 [place], [place] [phone] Ju Khan ANP 230 [place], [place] [phone] PT1 Social History Tobacco Use Types Packs/Day [...] encounter Miscellaneous Notes * Telephone Encounter - Muna Venegas - 02/06/2024 11:30 AM EDT Patient calling requesting renewal PT1 Home Address verified: Y/N: Yes Provider name or facility name: [facility] Facility Address: [address] [place] [address] Escort needed: Y/N: Yes Do you have a wheelchair: Y/N: No If yes- Manual or electric: n/a Visits: 2 a month Patient calling requesting renewal PT1 Home Address verified: Y/N: Yes Provider name or facility name: Facility Address: Escort needed: Y/N: No Do you have a wheelchair: Y/N: No If yes- Manual or electric: n/a Visits: (amount of visits) ( x monthly, weekly, daily) documented in this encounter Plan of Treatment Not on file documented as of this encounter Visit Diagnoses Not on filedocumented in this encounter Additional Health Concerns Assessment Noted Time PHQ-9 Depression Total Score: 9 12/01/19 23 10:12 AM EDT documented as of this encounter Care Teams Basketball Referee Relationship Specialty Start Date End Date Ju Khan ANP [address] [place] [address] PCP - General Family Medicine 03/20/22 07/27/24 Jennifer Sultana NP [address] [place] [address] PCP - General Family Medicine 07/28/24 Juainto Srinivasan Tail Board Man 05/10/23 Francisco J Palomino Tail Board ManMud Logger 05/16/23 Fawad Vargas Tail Board ManMud Logger 08/11/24 documented as of this encounter
--- OUTSIDE RECORDS SUMMARY | 2024-10-22 17:51 | XMS_ITS | Encounter Summary ---
Author Organization [employer] Address [address] [facility] [address] 7t [place] [address] Care Team Providers Care Senior Staff Consultant Name Role Phone Ju Khan Primary Care Provider Jennifer Sultana NP Primary Care Provider [phone] Reason for Visit * Reason Onset Date Comments PT-1 02/25/2024 Encounter Details Date Type Department Care Team ([facility] Contact Info) Description 02/25/2024 Telephone [facility] MEDICINE 230 [place], [place] [phone] Ju Khan ANP 230 [place], [place] [phone] PT-1 Social History Tobacco Use Types Packs/Day Years [...] encounter Miscellaneous Notes * Telephone Encounter - Delmar Tomlinson - 03/11/2024 2:10 PM EDT Tc from patient calling in regards to the message below would like a call back with status * Telephone Encounter - Juan José Diaz - 03/11/2024 1:51 PM EDT Tc from pt calling in regards to message prior stating PT-1 was never submitted. * Telephone Encounter - Lupis Cano - 02/25/2024 3:06 PM EDT Patient calling requesting PT1 Home Address verified: Y/N: Yes Provider name or facility name: [facility] Facility Address: [address] [place] [address] Escort needed: Y/N: No Do you have a wheelchair: Y/N: No If yes- Manual or electric: n/a Visits: 1x per week documented in this encounter Plan of Treatment Not on file documented as of this encounter Visit Diagnoses Not on filedocumented in this encounter Additional Health Concerns Assessment Noted Time PHQ-9 Depression Total Score: 9 12/01/19 23 10:12 AM EDT documented as of this encounter Care Teams Senior Staff Consultant Relationship Specialty Start Date End Date Ju Khan ANP 230 [place] [address] PCP - General Family Medicine 03/20/22 07/27/24 Jennifer Sultana NP 230 [place] [address] PCP - General Family Medicine 07/28/24 Juanito Srinivasan Fruit And Vegetable Inspector 05/10/23 Francisco J Palomino Fruit And Vegetable InspectorProcess Engineering Manager 05/16/23 Fawad Vargas Fruit And Vegetable InspectorProcess Engineering Manager 08/11/24 documented as of this encounter
--- OUTSIDE RECORDS SUMMARY | 2024-10-22 17:51 | XMS_ITS | Encounter Summary ---
Demographics Address [address] [facility] [address] [place] [address] Mobile Phone Work Phone Email Address Preferred Language en Marital Status Caodaism Affiliation Unknown Race White Ethnic Group Unknown Author Organization [employer] Address [address] [place] [address] 7 [place] [address] Care Team Providers Care Casting Machine Adjuster Name Role Phone Jennifer Sultana NP Primary Care Provider [phone] Reason for Referral * Consultation (Routine) - Authorized Specialty Diagnoses / Procedures Referred By Ronald constantino Referred To Contact Urology Diagnoses Stage 3a chronic kidney disease (CMS/HCC) Jennifer Sultana NP 230 [place] [address] Phone: tel: fax: [facility] [address] [place], [place] Phone: tel: fax: Referral ID Status Reason Start Date Expiration Date Visits Requested Visits Authorized [id number] Authorized Specialty Services Required 09/23/2024 09/23/2025 6 6 Encounter Details Date Type Department Care Team (Late st Contact Info) Description 09/23/2024 Orders Only [facility] MEDICINE 230 [place], [place] [phone] Jennifer Sultana NP 230 [place], [place] [phone] Stage 3a chronic kidney disease (CMS/HCC) (Primary [...] Scheduled Referrals Name Type Priority Associated Diagnoses Orde r Schedule Referral to Urology Outpatient Referral Routine Stage 3a chronic kidney disease (CMS/HCC) Expected: 09/23/2024 (Approximate), Expires: 09/23/2025 documented as of this encounter Visit Diagnoses Diagnosis Stage 3a chronic kidney disease (CMS/HCC)- Primary documented in this encounter Additional Health Concerns Assessment Noted Time PHQ-9 Depression Total Score: 27 024 2:31 PM EST documented as of this encounter Care Teams Casting Machine Adjuster Relationship Specialty Start Date End Date Jennifer Sultana NP [address] [place] [address] PCP - General Family Medicine 07/28/24 Juanito Srinivasan Air Chief Marshal 05/10/23 Francisco J Palomino Air Chief MarshalHead Usher 05/16/23 Fawad Vargas Air Chief MarshalHead Usher 08/11/24 documented as of this encounter
--- OUTSIDE RECORDS SUMMARY | 2024-10-22 17:51 | XMS_ITS | Encounter Summary ---
Author Organization [facility] Address [address] [place] [address] Care Team Providers Care Montessori Teacher Name Role Phone AnselmoJennifer borrego PRATIK Primary Care Provider [phone] Reason for Visit * Reason Comments Nail Problem * Consultation (Routine) - Closed Specialty Diagnoses / Procedures Referred By Ronald constantino Referred To Contact Podiatry / Orthopaedic Surgery Diagnoses Pain in unspecified foot Jennifer Sultana FNP 230 [place] [address] Phone: tel: fax: Artie Goodrich DPM [address] [address] Phone: tel: fax: Referral ID Status Reason Start Date Expiration Date V isits Requested Visits Authorized [id number] Closed Specialty Services Required 08/18/2024 08/18/2025 1 1 Encounter Details Date Type Department Care Team (Late st Contact Info) Description 09/30/2024 1:15 PM EST Consult Orthopedic Surgery - [place] [address] [address] Artie Goodrich DPM [address] [address] Pain in both feet (Primary Dx); Arthritis of both feet; Hammertoes of both feet; Xerosis cutis; Dermatophytosis, nail Social History Tobacco Use Types Packs/Day Years Used Date Smoking Tobacco: Never Assessed Comments Unknown Sex and Gender Information Value Date Recorded Sex Assigned at Not on file Legal Sex Female 3:08 PM EST Gender Identity Not on file Sexual Orientation Not on file documented as of this encounter Last Filed Vital Signs Vital Sign Reading Time Taken Comments Blood Pressure - - Pulse - - Temperature - - Respiratory Rate - - Oxygen Saturation - - Inhaled Oxygen Concentration - - Weight 84.4 kg (186 lb) 09/30/2024 1:32 PM EST Height 165.1 cm (5' 5 ) 09/30/2024 1:32 PM EST Body Mass Index 30.95 09/30/2024 1:32 PM EST documented in this encounter Progress Notes * Artie Goodrich DPM - 09/30/2024 1:15 PM EST Referring MD: Jennifer Sultana FNP Last PCP visit: 07/28/2024 IDENTIFIER: @TITLE@ Saad is a 59 y.o. year old female who presents for consultation. CC: Bilateral foot pain HPI: 59-year-old female presents office chief complaint of bilateral foot pain. Patient notes she has a extensive history of gastric ulcer lower back pathology and kidney disease. Patient notes that she has been having sharp shooting pain within her feet and toes. Patient notes her nails are thickened and misshapened and causing sores when they rub on adjacent digits. Patient is here for evaluation treatment ROS: GENERAL: Pt denies nausea, fever, vomiting, chills, or shortness of breath. Pt in NAD. CARDIOLOGY: pt denies chest pain, palpitations LUNGS: pt denies shortness of breath MUSCULOSKELETAL: See HPI, otherwise no joint pain or swelling, back pain, or muscle pain. SKIN: see HPI, otherwise no lesions, rash or itching NEURO: No persistent headache, weakness or numbness The remainder of the review of systems is noncontributory PAST MEDICAL HISTORY: There is no problem list on file for this patient. SOCIAL HISTORY: Social History Tobacco Use Smoking status: Not on file Smokeless tobacco: Not on file Substance Use Topics Alcohol use: Not on file ACTIVE MEDICATIONS: No outpatient medications have been marked as taking for the 09/30/24 encounter (Consult) with Artie Emery DPM. ALLERGIES: @ALL@ PHYSICAL EXAM: Height 1.651 m (65 ), weight 84.4 kg (186 lb). PODIATRIC EXAMINATION: GENERAL: Patient appears well nourished, with NAD. VASCULAR: Dorsalis pedis pulses are 1/4 bilaterally and Posterior tibial pulses are 0/4 bilaterally. Capillary filling time within normal limits the digits. No pallor on elevation or rubor on dependency. Positive hair growth. Many varicosities. Denies rest pain or claudication pain. NEUROLOGICAL: Sharp/dull sensation intact, protective sensation diminished on [place]. Peripheral neuropathy throughout the feet bilaterally. ORTHOPEDIC: Good muscle strength 5/5 of all flexors and extensors. Dorsi flexion of ankle ,10 degrees, plantar flexion WNL. No muscle atrophy. Rigid contracture of digits 2 through 5. Multitude of arthritic changes of the midtarsal joint with dorsal exostoses are palpable and painful. DERMATOLOGICAL:.Multiple areas of xerosis bilateral feet. Normal skin temperature, normal skin turgor. Nails are elongated dystrophic discolored x 10 with similar debris BIOMECHANICS: STJ ROM wnl, MTJ ROM wnl, 1st MPJ ROM wnl. IMPRESSION: 1. Pain in both feet 2. Arthritis of both feet 3. Hammertoes of both feet 4. Xerosis cutis 5. Dermatophytosis, nail PLAN: Pt was seen and examined, history reviewed. Patient with symptoms of arthritic changes in the pedal joints. Patient showed good understanding of etiology of arthritis. Patient is aware that conservative options include padding, over the counter products, orthotics, and shoes. Patient aware that they are other treatments available such as oral anti- inflammatories, injections, and steroid dose packs. Patient understands that these measures are conservative measures to help handle the osteoarthritic flares. Patient found to have contracted and hammered digits of bilateral forefoot. Due to patients currentage and activity level, will continue with conservative management of these deformities. There are devices that will help reduce chance of irritation, pressure points, blisters, and/or infection. Patient with diffuse Xerosis to bilateral feet. Patient will benefit from additional moisture to feet to prevent fissures and crack which could lead to pain or even infection. Patient has moisturizers in their possession. Patient encouraged to apply lotion to lightly moistened skin to allow for better absorption. Nail debridement performed to nails 1-5 bilateral as nails were described to be causing pain and difficulty for walking while in shoegear at their previous length. They were debrided in thickness andlength, with no incident. Clinical evidence of mycosis is documented which required active treatment. Patient expressed immediate relief. Patient is to RTC in 9 weeks Artie Goodrich DPM cc: Jennifer Sultana FNP documented in this encounter Plan of Treatment Upcoming Encounters Date Type Department Care Team ([facility] st Contact Info) Description 12/02/2024 1:15 PM EDT Office Visit Orthopedic Surgery - [place] [address] [phone] Artie Goodrich DPM [address] [address] documented as of this encounter Visit Diagnoses Diagnosis Pain in both feet- Primary Arthritis of both feet Hammertoes of both feet Xerosis cutis Other specified disease of sebaceous glands Dermatophytosis, nail Dermatophytosis of nail documented in this encounter Orders Outpatient Referral Count Last Ordered Date Ordered Date AMB REFERRAL TO PODIATRY 1 09/30/2024 documented in this encounter Care Teams Montessori Teacher Relationship Specialty Start Date End Date Jennifer Sultana FNP 230 [place] [address] PCP - General Nurse Practitioner 08/18/24 documented as of this encounter
--- OUTSIDE RECORDS SUMMARY | 2024-10-22 17:51 | XMS_ITS | Encounter Summary ---
Author Organization [email or web address] Address [address] [facility] [address] [address] 7t [place] [address] Care Team Providers Care Foreign Clerk Name Role Phone Ju Khan ANP Primary Care Provider [phone] Jennifer Sultana NP Primary Care Provider [phone] Reason for Visit * Reason Comments Med Refill Encounter Details Date Type Department Care Team ([facility] st Contact Info) Description 11/07/2023 Refill [facility] MEDICINE 230 [place] [address] Ju Khan ANP 230 [place] [address] Spondylosis 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 Social [...] documented as of this encounter Care Teams Foreign Clerk Relationship Specialty Start Date End Date Ju Khan ANP 230 [place] [address] PCP - General Family Medicine 03/20/22 07/27/24 Jennifer Sultana NP 230 [place] [address] PCP - General Family Medicine 07/28/24 Juanito Srinivasan Shaker Screen Operator 05/10/23 Francisco J Palomino Shaker Screen OperatorProperty Management Assistant 05/16/23 Fawad Vargas Shaker Screen OperatorProperty Management Assistant 08/11/24 documented as of this encounter
--- OUTSIDE RECORDS SUMMARY | 2024-10-22 17:51 | XMS_ITS | Encounter Summary ---
Author Organization [employer] Address 75 [facility] 7t [place] [address] Care Team Providers Care Medical Insurance Verifier Name Role Phone Jennifer Sultana NP Primary Care Provider [phone] Reason for Visit * Reason Onset Date Comments Reschedule 08/22/2024 Encounter Details Date Type Department Care Team ([facility] Contact Info) Description 08/22/2024 Telephone [facility] MEDICINE 230 [place] [address] Jennifer Sultana NP 230 [place] [address] Reschedule Social History Tobacco Use Types Packs/Day Years [...] encounter Miscellaneous Notes * Telephone Encounter - Kristi Coburn - 08/22/2024 1:41 PM EST Tc from pt to reschedule 08/22 PAP appt. documented in this encounter Plan of Treatment Not on file documented as of this encounter Visit Diagnoses Not on filedocumented in this encounter Additional Health Concerns Assessment Noted Time PHQ-9 Depression Total Score: 27 024 2:31 PM EST documented as of this encounter Care Teams Medical Insurance Verifier Relationship Specialty Start Date End Date Jennifer Sultana NP [address] [place] [address] PCP - General Family Medicine 07/28/24 Juanito Srinivasan Cisco Network Engineer 05/10/23 Francisco J Palomino Cisco Network EngineerLamps Tester And Inspector 05/16/23 Fawad Vargas Cisco Network EngineerLamps Tester And Inspector 08/11/24 documented as of this encounter
--- OUTSIDE RECORDS SUMMARY | 2024-10-22 17:51 | XMS_ITS | Encounter Summary ---
Author Organization [employer] Address 75 [facility] 7t [place] [address] Care Team Providers Care Plastic Bubble Packer Name Role Phone Ju Khan Primary Care Provider [phone] Jennifer Sultana NP Primary Care Provider [phone] Reason for Visit * Reason Onset Date Comments PT1 06/19/2023 Encounter Details Date Type Department Care Team ([facility] Contact Info) Description 06/19/2023 Telephone [facility] MEDICINE 230 [place], [place] [phone] Ju Khan ANP 230 [place], [place] [phone] PT1 Social History Tobacco Use Types Packs/Day [...] encounter Miscellaneous Notes * Telephone Encounter - Carole Mederos - 06/20/2023 12:23 PM EDT Patient will recieve approval / denial letter via mail. PT-1 Request [id number] Authorized - [address] [address] Wrote called and spoke with pt regarding PT1. [facility] GI PT1 is good through October 2023 & [facility] Pulmonology is good through 01/2024. Pt just needed [facility] * Telephone Encounter - uLpis Cano - 06/19/2023 2:15 PM EDT Tc from pt requesting PT1 renewal Date: n/a Time: n/a Visits: n/a Address: [address] [place] [address] willi WILSON ma Facility: [facility] pulmonology Wheel Chair: no, cane Electric Power Machine Operator Needed: no Date: 07/04 Time: 12 PM Visits: n/a Address: [address] [place] [address] Willi Wilson [place] Facility: [facility] Gastroenterology Wheel Chair: no, cane Electric Power Machine Operator Needed: no documented in this encounter Plan of Treatment Not on file documented as of this encounter Visit Diagnoses Not on filedocumented in this encounter Additional Health Concerns Assessment Noted Time PHQ-9 Depression Total Score: 9 12/01/19 23 10:12 AM EDT documented as of this encounter Care Teams Plastic Bubble Packer Relationship Specialty Start Date End Date Ju Khan ANP 230 [place] [address] PCP - General Family Medicine 03/20/22 07/27/24 Jennifer Sultana NP 230 [place] [address] PCP - General Family Medicine 07/28/24 Juanito Srinivasan Dial Equipment Engineer 05/10/23 Francisco J Palomino Dial Equipment EngineerVan Driver 05/16/23 Fawad Vargas Dial Equipment EngineerVan Driver 08/11/24 documented as of this encounter
--- OUTSIDE RECORDS SUMMARY | 2024-10-22 17:51 | XMS_ITS | Encounter Summary ---
Author Organization [employer] Address 75 [facility] 7t [place] [address] Care Team Providers Care Wetlands Technician Name Role Phone Ju Khan ANP Primary Care Provider [phone] Jennifer Sultana NP Primary Care Provider [phone] Reason for Visit * Reason Onset Date Comments PT1 03/09/2023 Encounter Details Date Type Department Care Team ([facility] Contact Info) Description 03/09/2023 Telephone [facility] MEDICINE 230 [place], [place] [phone] Ju Khan ANP 230 [place], [place] [phone] PT1 Social History Tobacco Use Types Packs/Day [...] encounter Miscellaneous Notes * Telephone Encounter - Zeynep Leary - 03/14/2023 2:41 PM EDT PT1 initiated for [facility] in [facility] will send pt a letter with instructions * Telephone Encounter - Lupis Cano - 03/09/2023 1:13 PM EDT Tc from pt requesting a PT1 PT1 Date: TBD Time: TBD Address: [address] [place] [address] Specialty: radiculopathy Facility: [facility] Designer: no Wheelchair: no, cane documented in this encounter Plan of Treatment Not on file documented as of this encounter Visit Diagnoses Not on filedocumented in this encounter Additional Health Concerns Assessment Noted Time PHQ-9 Depression Total Score: 9 12/01/19 23 10:12 AM EDT documented as of this encounter Care Teams Wetlands Technician Relationship Specialty Start Date End Date Ju Khan ANP 230 [place] [address] PCP - General Family Medicine 03/20/22 07/27/24 Jennifer Sultana NP 230 [place] [address] PCP - General Family Medicine 07/28/24 Juanito Srinivasan Health Care Recruiter 05/10/23 Francisco J Palomino Health Care RecruiterDirector Trade 05/16/23 Fawad Vargas Health Care RecruiterDirector Trade 08/11/24 documented as of this encounter
--- OUTSIDE RECORDS SUMMARY | 2024-10-22 17:51 | XMS_ITS | Encounter Summary ---
Author Organization [employer] Address [address] [place] [address] 7 [place] [address] Care Team Providers Care Marble Rubber Name Role Phone Ju Khan Primary Care Provider [phone] Jennifer Sultana NP Primary Care Provider [phone] Reason for Referral * Consultation (STAT) - Closed Specialty Diagnoses / Procedures Referred By [facility] Referred To Contact Orthopaedic Surgery Diagnoses Other closed fracture of proximal end of right tibia, initial encounter Fry cyst, right Ju Khan ANP 230 [place] [address] Phone: tel: fax: [facility] Orthopedics [address] [place] [address] Phone: tel: Referral ID Status Reason Start Date Expiration Date V isits Requested Visits Authorized [id number] Closed Specialty Services Required 05/05/2024 05/05/2025 3 3 Reason for Visit * Reason Comments Med Refill Encounter Details Date Type Department Care Team (Late st Contact Info) Description 07/03/2024 Refill [facility] MEDICINE 230 [place] [address] Ju Khan ANP 230 [place], [place] [phone] Other closed fracture of proximal end of right tibia, initial encounter (Primary Dx); Fry cyst, right Social History Tobacco Use Types Packs/Day Years Used Date Smoking Tobacco: Former Cigarettes Passive Smoke Exposure: Past Smokeless Tobacco: Never Alcohol Use Standard Drinks/Week Comments Not Currently 0 (1 standard drink = 0.6 oz pur e alcohol) Depression Answer Date Recorded Patient Health Questionnaire-9 Score 3 04/04/2024 Patient Health Questionnaire-9 Score 3 04/04/2024 Last PHQ-9: Questionnaire Data Not on file 0 04/04/2024 Housing Stability Answer Date Recorded What is [...] Answer Date Recorded Patient Health Questionnaire-2 Score 0 04/04/2024 Internet Access Answer Date Recorded Internet Access [...] Priority Associated Diagnoses Order Schedule Referral to Orthopaedic Surgery Outpatient Referral STAT Other closed fracture of proximal end of right tibia, initial encounter Fry cyst, right Expected: 07/04/2024 (Approximate), Expires: 07/04/2025 documented as of this encounter Visit Diagnoses Diagnosis Other closed fracture of proximal end of right tibia, initial encounter- Primary Fry cyst, right documented in this encounter Additional Health Concerns Assessment Noted Time PHQ-9 Depression Total Score: 3 08/09/20 24 1:48 PM EDT documented as of this encounter Care Teams Marble Rubber Relationship Specialty Start Date End Date Ju Khan ANP 230 [place] [address] PCP - General Family Medicine 03/20/22 07/27/24 Jennifer Sultana NP 230 [place] [address] PCP - General Family Medicine 07/28/24 Juanito Srinivasan Airbrush Artist 05/10/23 Francisco J Palomino Airbrush ArtistWeb Feeder 05/16/23 Fawad Vargas Airbrush ArtistWeb Feeder 08/11/24 documented as of this encounter
--- OUTSIDE RECORDS SUMMARY | 2024-10-22 17:51 | XMS_ITS | Encounter Summary ---
Author Organization [employer] Address 75 [facility] 7t [place] [address] Care Team Providers Care Energy Scheduler Name Role Phone Jennifer Sultana NP Primary Care Provider [phone] Reason for Visit * Reason Onset Date Comments Chart Prep 10/06/2024 Encounter Details Date Type Department Care Team ([facility] Contact Info) Description 10/06/2024 Telephone [facility] MEDICINE 230 [place], [place] [phone] Peyton Roe MA Chart Prep Social History Tobacco Use Types Packs/Day Years [...] encounter Miscellaneous Notes * Telephone Encounter - Peyton Roe MA - 10/06/2024 12:12 PM EST Chart Prep Labs: not done Images: done Vaccines due: Hep A Due and Hep B Due Referrals: Urology pending appointment, Nephrology pending appointment Screenings: Colonoscopy Overdue care gaps: None documented in this encounter Plan of Treatment Not on file documented as of this encounter Visit Diagnoses Not on filedocumented in this encounter Additional Health Concerns Assessment Noted Time PHQ-9 Depression Total Score: 27 024 2:31 PM EST documented as of this encounter Care Teams Energy Scheduler Relationship Specialty Start Date End Date Jennifer Sultana NP [address] [place] [address] PCP - General Family Medicine 07/28/24 Juanito Srinivasan Coffee Shop Aide 05/10/23 Francisco J Palomino Coffee Shop AideCremator 05/16/23 Fawad Vargas Coffee Shop AideCremator 08/11/24 documented as of this encounter
--- OUTSIDE RECORDS SUMMARY | 2024-10-22 17:51 | XMS_ITS | Encounter Summary ---
Author Organization [employer] Address 75 [facility] 7t [place] [address] Care Team Providers Care Childbirth Educator Name Role Phone Ju Khan Primary Care Provider [phone] Jennifer Sultana NP Primary Care Provider [phone] Reason for Visit * Reason Comments Med Refill Encounter Details Date Type Department Care Team ([facility] Contact Info) Description 07/15/2024 Refill [facility] MEDICINE 230 [place], [place] [phone] Ju Khan ANP 230 [place] [address] Multiple joint pain Social History Tobacco Use [...] Noted Time PHQ-9 Depression Total Score: 3 04/04/20 24 1:48 PM EDT documented as of this encounter Care Teams Childbirth Educator Relationship Specialty Start Date End Date Ju Khan ANP 230 [place] [address] PCP - General Family Medicine 03/20/22 07/27/24 Jennifer Sultana NP 230 [place] [address] PCP - General Family Medicine 07/28/24 Juanito Srinivasan In Store Marketing Associate 05/10/23 Francisco J Palomino In Store Marketing AssociateFederal Aid Coordinator 05/16/23 Fawad Vargas In Store Marketing AssociateFederal Aid Coordinator 08/11/24 documented as of this encounter
--- OUTSIDE RECORDS SUMMARY | 2024-10-22 17:51 | XMS_ITS | Encounter Summary ---
Author Organization [employer] Address 75 [facility] 7t [place] [address] Care Team Providers Care Mri Technologist Name Role Phone Ju Khan Primary Care Provider [phone] Jennifer Sultana NP Primary Care Provider [phone] Reason for Visit * Reason Onset Date Comments PT-1 06/11/2024 Encounter Details Date Type Department Care Team ([facility] Contact Info) Description 06/11/2024 Telephone [facility] MEDICINE 230 [place], [place] [phone] Ju Khan ANP 230 [place], [place] [phone] PT-1 Social History Tobacco Use Types Packs/Day [...] encounter Miscellaneous Notes * Telephone Encounter - Juan José Diaz - 06/11/2024 12:34 PM EDT Patient calling requesting PT1 Home Address verified: Y/N: Yes Provider name or facility name: [facility] (Dr. Philippe Evans) Facility Address: [address] [place] [address] Escort needed: Y/N: Yes Do you have a wheelchair: Y/N: No If yes- Manual or electric: (Uses walker and cane) Visits: 3 times a month - Patient calling requesting PT1 Home Address verified: Y/N: Yes Provider name or facility name: [facility] Facility Address: [address] [place] [address] Escort needed: Y/N: Yes Do you have a wheelchair: Y/N: No If yes- Manual or electric: Walker and Cane Visits: 4 a month - Patient calling requesting PT1 Home Address verified: Y/N: Yes Provider name or facility name: Ramez John MD Facility Address: [address] [place] [address] Escort needed: Y/N: Yes Do you have a wheelchair: Y/N: No If yes- Manual or electric: Walker and cane Visits: 3 monthly documented in this encounter Plan of Treatment Not on file documented as of this encounter Visit Diagnoses Not on filedocumented in this encounter Additional Health Concerns Assessment Noted Time PHQ-9 Depression Total Score: 3 04/04/20 24 1:48 PM EDT documented as of this encounter Care Teams Mri Technologist Relationship Specialty Start Date End Date Ju Khan ANP 230 [place] [address] PCP - General Family Medicine 03/20/22 07/27/24 Jennifer Sultana NP 230 [place] [address] PCP - General Family Medicine 07/28/24 Juanito Srinivasan Outpatient Physical Therapist Assistant 05/10/23 Francisco J Palomino Outpatient Physical Therapist AssistantGlue Drier Operator 05/16/23 Fawad Vargas Outpatient Physical Therapist AssistantGlue Drier Operator 08/11/24 documented as of this encounter
== END 2024-10-22 15:19 | disposition home or self-care (01) ==
PROVIDERS: PCP Nurse Practitioner Family; Visit Provider Internal Medicine Nephrology
DX: N18.31 Chronic kidney disease, stage 3a (principal); I10 Essential (primary) hypertension
CPT/HCPCS: 99204

== ENCOUNTER 2024-11-07 14:09 | Outpatient (RCR) | payer MEDICAID, SELFPAY ==
[2024-10-24 13:00] VITALS: BP 92/53; PULSE 66
--- NOTE | 2024-10-24 13:57 | MHC.PT.EP ---
[facility] [place] [facility] [place] [facility] [place] [facility] [address] [phone] F: [phone] F: [phone] F: [phone] F: [phone] Physical Therapy Plan of Care Date of Evaluation: 10/24/24 Date of Surgery: NA Diagnosis: Displaced bicondylar fracture of R tibia, initial encounter for closed fracture Tibial plateau fracture Assessment: Cherri is a 59 year old female who is referred to PT for Displaced bicondylar fracture of R tibia, initial encounter for closed fracture, Tibial plateau fracture . She sustained the fracture about 5 months back secondary to a fall. She has had no PT for this. On PT examination she presented with 2/10 pain behind knee cap with standing and walking for more than 15 minutes, no TTP, decreased R knee ROM, decreased R LE strength, altered posture, balance and gait. She lives with her daughter and needs assistance with all ADLS due to pain in multiple parts of body. She would benefit from skilled PT to address the aforementioned impairments and improve tolerance to functional activities. Frequency and Duration: The patient will be seen 2/week for 4 weeks Short Term Goals: 1. Pt will demonstrate initiation of HEP in 2 weeks 2. Pt will be able to move her knee through full range of motion without pain which will enable her to perform sit to stand without pain/stiffness in 3 weeks Penitentiary Goals: 1. Pt will demonstrate an increase in muscle strength by 1 grade which will enable her to stand and walk without pain in 5 weeks 2. Pt will be independent with all HEP for symptom management and maintenance following d/c in 5 weeks. Treatment Plan: Modalities to reduce pain, spasms and effusion. Manual therapy to restore motion and function. Therapeutic exercise to improve strength and flexibility. Neuromuscular re-education for posture and balance. Therapeutic activities to return to functional activities of daily living. Electronically signed by: Emiliana Cuevas PT DPT Please sign and return to therapist. Thank you for your referral.
--- NOTE | 2024-11-14 15:14 | MHC.PT.DC ---
[facility] [place] [facility] [place] [facility] [place] Office [address] Dow[address] [phone] F: [phone] F: [phone] F: [phone] F: [phone] Physical Therapy Discharge Report Diagnosis: Displaced bicondylar fracture of R tibia, initial encounter for closed fracture Tibial plateau fracture Date of Surgery: NA Date of Evaluation: 10/24/24 Date of Discharge: 11/14/24 Treatments to Date: 2 Cancellations to Date: 2 No Shows to Date: 3 Discharge Status: Visit Non-compliance Discharge Summary: Cherri has attended only 1 treatment after her evaluations. She has no showed 3 visits and canceled twice. She is therefore being d/c from PT for non compliance. Electronically signed by: Emiliana Cuevas PT DPT Please sign and return to therapist. Thank you for your referral.
== END 2024-11-14 15:30 | disposition home or self-care (01) ==
LOC: HO.PT 14:09
PROVIDERS: PCP Nurse Practitioner Family; Visit Provider Physician Assistant
DX: S82.141D Displaced bicondylar fracture of right tibia, subsequent encounter for closed fracture with routine healing (principal)
CPT/HCPCS: 97110; 97161

== ENCOUNTER 2024-11-19 12:21 | Outpatient (AMB) | payer MEDICAID, SELFPAY ==
--- NOTE | 2024-11-19 12:24 | HO.NEPHOV ---
Vital Signs 11/19/24 12:26 Height 5 ft 5 in Weight 185 lb 2 oz BMI 30.8 BP 90/60 Blood Pressure Location Rt brachial Position Sitting Intake Visit Reasons: CKD-LVM Electrical Continuity Tester Required: No Accompanied by: Self / Same As Patient Allergies codeine Allergy (Severe, Verified 11/19/24 12:26) Anaphylaxis aspirin Allergy (Mild, Verified 11/19/24 12:26) Hives Penicillins [PENICILLINS] Allergy (Mild, Verified 11/19/24 12:26) HIVES Sulfa (Sulfonamide Antibiotics) Allergy (Mild, Verified 11/19/24 12:) Hives sulfamethoxazole [From Bactrim] Allergy (Mild, Verified 11/19/24 12:) inflamed hives, rash, trimethoprim [From Bactrim] Allergy (Mild, Verified 11/19/24 12:) inflamed hives, rash, amoxicillin [AMOXICILLIN] Allergy (Unknown, Verified 11/19/24 12:) HIVES albuterol Allergy (Verified 11/19/24 12:) Hives citalopram [From Celexa] Allergy (Verified 11/19/24 12:26) Hives lamotrigine [From Lamictal] Allergy (Verified 11/19/24 12:) Hives olanzapine Allergy (Verified 11/19/24 12:) Hives morphine Adverse Reaction (Mild, Verified 11/19/24 12:26) Itching haloperidol [From Haldol] Adverse Reaction (Verified 11/19/24 12:26) Angioedema HPI Comments Details: I had the delight of seeing Cherri in follow up for CKD. She has multiple issues including H/O hypercalcemia as well as CKD for some time. She has joint pains but denies taking excess NSAID use. She has H/O hepatitis C in the past. She denies chest pressure, SOB, PND, orthopnea, edema, nausea, vomiting, diarrhea, new skin rashes, epistaxis, photosensitivity, hematuria, hearing issues. Her recent serum creatinine had improved from 1.4 to 1.2 [facility] Medical History (Updated 11/18/24 @ 21:14 by Kenneth Barakat MD) Delayed gastric emptying Hypercalcemia Tearfulness Rhinosinusitis Essential (primary) hypertension Anorexia nervosa, restricting type Blindness of left eye Thoracic back pain Uterine leiomyoma Vitamin D deficiency Visual impairment Stress incontinence of urine Chronic kidney disease, stage 3a Former smoker Rib lesion Recurrent acute sinusitis Raised TSH level Pure hypercholesterolemia Mixed hyperlipidemia Postural dizziness Opioid dependence Muscle pain Multiple joint pain Moderate persistent asthma without complication Lumbar radiculopathy Chronic rhinitis Hepatitis C Blood in urine Asthenia COVID-19 vaccine series completed Bipolar disorder Chronic pain syndrome Disc degeneration, lumbar Spondylosis 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 Chronic constipation Deviated septum Emphysema lung Adenomatous colon polyp Acid reflux Surgical History History of tympanoplasty S/P surgery on nasal septum History of bunionectomy History of tubal ligation History of esophagogastroduodenoscopy (EGD) Hx of colonoscopy Family History Father Brain cancer Mother Ovarian cancer Breast cancer Cervical cancer Social History Household Members: Children Alcohol intake: never Patient Tobacco Use Status: Former Tobacco user Tobacco use type: Cigarette Current occupational status: unemployed Review of Systems Const All systems reviewed & are unremarkable except as noted in HPI and below Physical Exam Const General: comfortable and no acute distress Orientation/consciousness: patient oriented x3 HEENT Head: Yes normocephalic Mouth: Normal oral and palatal mucosa present Eyes EOM: EOMs intact bilaterally Neck Neck: Yes supple Resp Auscultation: clear to auscultation bilaterally Cardio Jugular venous distension: no JVD Rate: regular rate GI Palpation (GI): Soft to palpation Auscultation: normal bowel sounds General: Yes no CVA tenderness Back/Spine/Pelvis Back: no CVA tenderness Skin General skin exam: no rashes or lesions noted Neuro General: patient oriented x3 and moves all extremities Extrem General: Yes no pedal edema Results Reviewed Nephrology Results: Hgb 13.0 g/dl (12.0-16.0) 10/22/24 WBC 9.9 X10*3/uL (4.8-10.8) 10/22/24 Plt Count 214 X10*3/uL (160-400) 10/22/24 Sodium 139 mmol/L (135-145) 10/22/24 Potassium 4.1 mmol/L (3.3-5.1) 02/26/25 Chloride 102 mmol/L (96-108) 10/22/24 Carbon Dioxide 29 mmol/L (22-29) 10/22/24 BUN 12 mg/dL (9-16) 10/22/24 Creatinine 1.27 mg/dL (0.5-1.4) 10/22/24 Calcium 10.1 mg/dL (8.4-10.2) 10/22/24 PTH Intact 179.4 pg/mL (8.7-77.1) H 10/22/24 Urine Protein Negative mg/dL (Neg-Trace) 10/22/24 Urine Creatinine 30.12 mg/dL 10/22/24 Protein/Creatinin Ratio TNP 10/22/24 Assessment & Plan Assessment & Plan (1) Chronic kidney disease, stage 3a: Code(s): N18.31 - Chronic kidney disease, stage 3a Category: Medical (2) Hypertension: Code(s): I10 - Essential (primary) hypertension Category: Medical Qualifiers: Hypertension type: primary hypertension Qualified Code(s): I10 - Essential (primary) hypertension Plan Cherri has CKD for some time. She recently had marginal rise in serum creatinine recently which may be due to tubular injury which has settled to baseline now. She should maintain good hydration and avoid NSAID's. Her work up to date has been negative. She will be a candidate for low dose of ACEI in the future for renal protection. She will need Vitamin D replacement . She also may be having primary hyperparathyroidism given high PTH and high calcium. I did not make any medication changes today but further management is pending evolving data. Answered all questions Orders: Orders Creatinine 6 Months I10 - Essential (primary) hypertension, N18.31 - Chronic kidney disease, stage 3a Electrolytes 6 Months I10 - Essential (primary) hypertension, N18.31 - Chronic kidney disease, stage 3a Calcium 6 Months I10 - Essential (primary) hypertension, N18.31 - Chronic kidney disease, stage 3a Blood Urea Nitrogen 6 Months I10 - Essential (primary) hypertension, N18.31 - Chronic kidney disease, stage 3a Parathyroid Hormone Intact 6 Months I10 - Essential (primary) hypertension, N18.31 - Chronic kidney disease, stage 3a Coding Level of Care Code Est Pt Level 4 (64864) Diagnoses Chronic kidney disease, stage 3a N18.31 Primary hypertension I10 Hypertension type: primary hypertension
[2024-11-19 12:26] VITALS: BP 90/60; BMI 30.8
== END 2024-11-19 12:39 | disposition home or self-care (01) ==
LOC: HO.HKA 12:22
PROVIDERS: PCP Nurse Practitioner Family; Visit Provider Internal Medicine Nephrology
DX: N18.31 Chronic kidney disease, stage 3a (principal); I10 Essential (primary) hypertension
CPT/HCPCS: 99214

== ENCOUNTER → 2024-11-19 12:21 | Outpatient (BNVA) | payer MEDICAID, SELFPAY | PROVIDERS: PCP Nurse Practitioner Family; Visit Provider Internal Medicine Nephrology | DX: I12.9 Hypertensive chronic kidney disease with stage 1 through stage 4 chronic kidney disease, or unspecified chronic kidney disease (principal); N18.31 Chronic kidney disease, stage 3a | CPT/HCPCS: 99212 ==

== ENCOUNTER 2024-11-27 13:18 | Outpatient (AMB) | payer MEDICAID, SELFPAY ==
--- NOTE | 2024-11-27 13:37 | MHC.OFFVIS ---
Intake Visit Reasons: Stress incontinence Intake Note: New patient presents today for initial visit for Urology Medication:none Blood Thinner:none Antibiotic Allergies:Penicillin, Amoxicillin PVR:0ml Allergies codeine Allergy (Severe, Verified 11/27/24 13:54) Anaphylaxis aspirin Allergy (Mild, Verified 11/27/24 13:54) Hives Penicillins [PENICILLINS] Allergy (Mild, Verified 11/27/24 13:54) HIVES Sulfa (Sulfonamide Antibiotics) Allergy (Mild, Verified 11/27/24 13:54) Hives sulfamethoxazole [From Bactrim] Allergy (Mild, Verified 11/27/24 13:54) inflamed hives, rash, trimethoprim [From Bactrim] Allergy (Mild, Verified 11/27/24 13:54) inflamed hives, rash, amoxicillin [AMOXICILLIN] Allergy (Unknown, Verified 11/27/24 13:54) HIVES albuterol Allergy (Verified 11/27/24 13:54) Hives citalopram [From Celexa] Allergy (Verified 11/27/24 13:54) Hives lamotrigine [From Lamictal] Allergy (Verified 11/27/24 13:54) Hives olanzapine Allergy (Verified 11/27/24 13:54) Hives morphine Adverse Reaction (Mild, Verified 11/27/24 13:54) Itching haloperidol [From Haldol] Adverse Reaction (Verified 11/27/24 13:54) Angioedema Medication List - Last Reconciled 11/27/24 by Mauricio Avilez MD albuterol sulfate 90 mcg/actuation 2 puffs PO Q4-6H PRN buprenorphine-naloxone 12-3 mg (Suboxone) 30 mg sublingual DAILY cyclobenzaprine 5 mg PO ONCE PRN docusate sodium (Colace) 200 mg (2 x 100 mg) PO BEDTIME 30 days folic acid 1 mg PO DAILY furosemide (Lasix) 20 mg PO QAM lubiprostone 8 mcg PO BID 30 days methylcellulose (laxative) (Citrucel) 500 mg PO BID 30 days metoprolol tartrate 12.5 mg PO BID omeprazole 40 mg PO BID PRN polyethylene glycol 3350 (Miralax) 17 grams PO BID 60 days rosuvastatin 10 mg PO QAM simethicone (Gas-X Extra Strength) 125 mg PO BEDTIME PRN 30 days solifenacin (Vesicare) 10 mg PO DAILY theophylline ER 400 mg PO QAM tiotropium-olodaterol 2.5-2.5 mcg/actuation (Stiolto Respimat) 2 puffs PO DAILY verapamil ER 120 mg PO QPM HPI Comments Details: 11/27/24 History of Present Illness The patient is a 59-year-old female presenting with complaints of urinary leakage associated with urgency. During previous health visits, she reports difficulty providing urine samples due to an inability to urinate on demand. Recent and past urine tests, including one on 10/22/24, revealed no blood or infection, yet urinary leakage and urgency persist. The patient has a history of nicotine use, adding complexity to her symptoms due to potential bladder irritation risks. She currently consumes two cans of Pepsi per day, which is noted as a possible exacerbating factor. Suggestions to decrease this consumption have been given. Plan discussed--The patient will be started on an anticholinergic medication to address her urinary incontinence and urgency. She will work on reducing her caffeine intake, Due to her history of nicotine use, a renal ultrasound and office cystoscopy will be performed to assess the urinary tract further. Unable to provide urine sample today. Urinary Symptoms Review - Urinary leakage with urgency - Caffeine intake at approximately two cans of Pepsi per day, adding potential irritant effects Results - Labs: Urinalysis on 10/22/24 negative for blood or leukocytes PFSH Medical History Delayed gastric emptying Hypercalcemia Tearfulness Rhinosinusitis Essential (primary) hypertension Anorexia nervosa, restricting type Blindness of left eye Thoracic back pain Uterine leiomyoma Vitamin D deficiency Visual impairment Stress incontinence of urine Chronic kidney disease, stage 3a Former smoker Rib lesion Recurrent acute sinusitis Raised TSH level Pure hypercholesterolemia Mixed hyperlipidemia Postural dizziness Opioid dependence Muscle pain Multiple joint pain Moderate persistent asthma without complication Lumbar radiculopathy Chronic rhinitis Hepatitis C Blood in urine Asthenia COVID-19 vaccine series completed Bipolar disorder Chronic pain syndrome Disc degeneration, lumbar Spondylosis 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 Chronic constipation Deviated septum Emphysema lung Adenomatous colon polyp Acid reflux Surgical History History of tympanoplasty S/P surgery on nasal septum History of bunionectomy History of tubal ligation History of esophagogastroduodenoscopy (EGD) Hx of colonoscopy Family History Father Brain cancer Mother Ovarian cancer Breast cancer Cervical cancer Social History Household Members: Children Alcohol intake: never Patient Tobacco Use Status: Former Tobacco user Tobacco use type: Cigarette Current occupational status: unemployed Review of Systems Const All systems reviewed & are unremarkable except as noted in HPI and below Reports no additional complaints Eyes Reports no additional complaints ENT Reports no additional complaints Card Reports no additional complaints Resp Reports no additional complaints GI Reports no additional complaints Reports as per HPI Musc Reports no additional complaints Skin/Breast Reports system reviewed and no additional complaints, except as documented Neuro Reports no additional complaints Psych Reports no additional complaints Endo Reports no additional complaints Win/Lymph Reports no additional complaints Aller/Immun Reports no additional complaints Physical Exam Const General: cooperative, healthy appearing and no acute distress Orientation/consciousness: patient oriented x3 HEENT Head: Yes normal to inspection, Yes normocephalic and Yes atraumatic Eyes Conjunctivae: conjunctivae normal Neck Neck: Yes normal visual inspection and Yes trachea midline Chest Chest palpation & inspection: normal inspection of the chest Resp Effort & Inspection: normal respiratory effort GI Inspection: Yes normal to inspection Neuro General: patient oriented x3 Psych Appearance: grossly normal Assessment & Plan Assessment & Plan (1) Urinary urgency: Code(s): R39.15 - Urgency of urination Category: Medical (2) Urinary incontinence: Code(s): R32 - Unspecified urinary incontinence Category: Medical (3) Personal history of nicotine dependence: Code(s): Z87.891 - Personal history of nicotine dependence Category: Medical Plan Plan - Begin taking the prescribed anticholinergic medication as directed. Vesicare 10 mg daily. - Reduce caffeine intake, limit to one can of Pepsi per day. - Undergo a renal ultrasound and schedule an office cystoscopy. pelvic exam at that time. - Report any new or worsening symptoms. Medications: New solifenacin (Vesicare) 10 mg PO DAILY 30 tabs 5RF Patient Instructions: The patient had an opportunity to ask questions regarding treatment plan. The patient expressed understanding and agreement with the above treatment plan. The patient is aware they should contact our office by phone for worsening of their current condition or the appearance of new symptoms. Compliance is encouraged with any medications and followup testing that is ordered. It is a privilege to be allowed the opportunity to participate in the urologic care of your patient. If you have any questions or concerns regarding treatment for the above conditions please do not hesitate to contact me. The office telephone contact is [phone]. This note is constructed in part using voice recognition software. While every effort has been made to ensure accuracy c software engineer errors may have been included. Yours sincerely, Mauricio Avilez MD Scribe Plan - Not visible on output: Patient was informed and verbally consented to the use of an ambient scribe for clinic note documentation during this visit. Coding Level of Care Code New Pt Level 4 (59278) Diagnoses Urinary urgency R39.15 Urinary incontinence R32 Personal history of nicotine dependence Z87.894
--- OUTSIDE RECORDS SUMMARY | 2024-11-27 14:31 | XMS_ITS | Encounter Summary ---
Author Organization [employer] Address [address] [facility] 7t [place] [address] Care Team Providers Care Product Development Manager Name Role Phone Ju Khan Primary Care Provider [phone] Jennifer Sultana NP Primary Care Provider [phone] Reason for Visit * Reason Onset Date Comments PT1 06/15/2023 Encounter Details Date Type Department Care Team ([facility] Contact Info) Description 06/15/2023 Telephone [facility] [address] [place], [place] [phone] Ju Khan ANP 230 [place], [place] [phone] PT1 Social History Tobacco Use Types Packs/Day [...] 06/27/2023 Time: 2:45 Visits: 2 monthly Address: [address] [place] [id number] Facility: [facility] Wheel Chair: no/cane Customer Accounts Advisor Needed: no & Date: 07/17/2023 Time: 2:00 Visits: 3 monthly Address: [address] [place] [address] Facility: [facility] Cardiovascular [facility] Wheel Chair: no/cane Customer Accounts Advisor Needed: no documented in this encounter Plan of Treatment Upcoming Encounters Date Type Department Care Team ([facility] st Contact Info) Description 12/23/2024 1:00 PM EDT Procedure Visit [facility] [address] [place] [address] Jennifer Sultana NP [address] [place] [address] documented as of this encounter Visit Diagnoses Not on filedocumented in this encounter Additional Health Concerns Assessment Noted Time PHQ-9 Depression Total Score: 9 12/01/19 23 10:12 AM EDT documented as of this encounter Care Teams Product Development Manager Relationship Specialty Start Date End Date Ju Khan ANP [address] [place] [address] PCP - General Family Medicine 03/20/22 07/27/24 Jennifer Sultana NP [address] [place] [address] PCP - General Family Medicine 07/28/24 Juanito Srinivasan Phlebotomy Services Representative 05/10/23 Francisco J Palomino Phlebotomy Services RepresentativeDiamond Driller 05/16/23 Fawad Vargas Phlebotomy Services RepresentativeDiamond Driller 08/11/24 documented as of this encounter
--- OUTSIDE RECORDS SUMMARY | 2024-11-27 14:31 | XMS_ITS | Encounter Summary ---
Author Organization [employer] Address [address] [facility] 7t [place] [address] Care Team Providers Care Home Energy Consultant Supervisor Name Role Phone Ju Khan Primary Care Provider [phone] Jennifer Sultana NP Primary Care Provider [phone] Reason for Visit * Reason Onset Date Comments PT1 06/18/2023 Encounter Details Date Type Department Care Team ([facility] Contact Info) Description 06/18/2023 Telephone [facility] [address] [place], [place] [phone] Ju Khan ANP 230 [place], [place] [phone] PT1 Social History Tobacco Use Types Packs/Day [...] 2:19 PM EDT PT1 Name of facility: [facility] Specialty: Follow up with PCP Location: [address] [place] [address] Date: 07/02/2023 Time: 3:00 pm fax: [phone] wheelchair: NO Mechanical Assembly: NO Visits: Pt states for all future appts documented in this encounter Plan of Treatment Upcoming Encounters Date Type Department Care Team ([facility] st Contact Info) Description 12/23/2024 1:00 PM EDT Procedure Visit [facility] [address] [place] [address] Jennifer Sultana NP [address] [place] [address] documented as of this encounter Visit Diagnoses Not on filedocumented in this encounter Additional Health Concerns Assessment Noted Time PHQ-9 Depression Total Score: 9 12/01/19 10:12 AM EDT documented as of this encounter Care Teams Home Energy Consultant Supervisor Relationship Specialty Start Date End Date Ju hKan ANP [address] [place] [address] PCP - General Family Medicine 03/20/22 07/27/24 Jennifer Sultana NP [address] [place] [address] PCP - General Family Medicine 07/28/24 Juanito Srinivasan Quality Associate 05/10/23 Francisco J Palomino Quality AssociateRevenue Coordinator 05/16/23 Fawad Vargas Quality AssociateRevenue Coordinator 08/11/24 documented as of this encounter
--- OUTSIDE RECORDS SUMMARY | 2024-11-27 14:31 | XMS_ITS | Encounter Summary ---
Author Organization [employer] Address [address] [place] [address] 7 [place] [address] Care Team Providers Care Tablet Technician Name Role Phone uJ Khan Primary Care Provider [phone] Jennifer Sultana NP Primary Care Provider [phone] Reason for Referral * Consultation (STAT) - Closed Specialty Diagnoses / Procedures Referred By [facility] Referred To Contact Orthopaedic Surgery Diagnoses Other closed fracture of proximal end of right tibia, initial encounter Fry cyst, right Ju Khan ANP [address] [place] [address] Phone: tel: fax: [facility] Orthopedics [address] [place] [address] Phone: tel: Referral ID Status Reason Start Date Expiration Date V isits Requested Visits Authorized [id number] Closed Specialty Services Required 05/05/2024 05/05/2025 3 3 Reason for Visit * Reason Comments Med Refill Encounter Details Date Type Department Care Team (Late st Contact Info) Description 07/03/2024 Refill [facility] [address] [place] [address] Ju Khan ANP [address] [place], [place] [phone] Other closed fracture of proximal end of [...] as of this encounter Plan of Treatment Upcoming Encounters Date Type Department Care Team (Late st Contact Info) Description 12/23/2024 1:00 PM EDT Procedure Visit [facility] [address] [place] [address] Jennifer Sultana NP [address] [place] [address] Scheduled Referrals Name Type Priority Associated Diagnoses [...] documented as of this encounter Care Teams Tablet Technician Relationship Specialty Start Date End Date Ju Khan ANP [address] [place] [address] PCP - General Family Medicine 03/20/22 07/27/24 Jennifer Sultana NP [address] [place] [address] PCP - General Family Medicine 07/28/24 Juanito Srinivasan State Historical Society Director 05/10/23 Francisco J Palomino State Historical Society DirectorWater Treatment Plant Repairer 05/16/23 Fawad Vargas State Historical Society DirectorWater Treatment Plant Repairer 08/11/24 documented as of this encounter
--- OUTSIDE RECORDS SUMMARY | 2024-11-27 14:31 | XMS_ITS | Encounter Summary ---
Author Organization [employer] Address [address] 7[address] [place] [address] Care Team Providers Care Insulation Power Unit Tender Name Role Phone Ju Khan Primary Care Provider [phone] Jennifer Sultana NP Primary Care Provider Reason for Visit * Reason Onset Date Comments PT-1 02/25/2024 Encounter Details Date Type Department Care Team ([facility] Contact Info) Description 02/25/2024 Telephone [facility] 230 [place], [place] [phone] Ju Khan ANP 230 [place], [place] [phone] PT-1 Social History Tobacco Use Types Packs/Day [...] Y/N: Yes Provider name or facility name: [facility] Facility Address: [address] [place] [address] Escort needed: Y/N: No Do you have a wheelchair: Y/N: No If yes- Manual or electric: n/a Visits: 1x per week documented in this encounter Plan of Treatment Upcoming Encounters Date Type Department Care Team ([facility] Contact Info) Description 12/23/2024 1:00 PM EDT Procedure Visit [facility] [address] [place] [address] Jennifer Sultana NP [address] [place] [address] documented as of this encounter Visit Diagnoses Not on filedocumented in this encounter Additional Health Concerns Assessment Noted Time PHQ-9 Depression Total Score: 9 12/01/19 23 10:12 AM EDT documented as of this encounter Care Teams Insulation Power Unit Tender Relationship Specialty Start Date End Date Ju Khan ANP [address] [place] [address] PCP - General Family Medicine 03/20/22 07/27/24 Jennifer Sultana NP [address] [place] [address] PCP - General Family Medicine 07/28/24 Juanito Srinivasan Technical Support Specialist 05/10/23 Francisco J Palomino Technical Support SpecialistChange Control Manager 05/16/23 Fawad Vargas Technical Support SpecialistChange Control Manager 08/11/24 documented as of this encounter
--- OUTSIDE RECORDS SUMMARY | 2024-11-27 14:31 | XMS_ITS | Encounter Summary ---
Author Organization [employer] Address [address] 7[address] [place] [address] Care Team Providers Care Linux Programmer Name Role Phone Jennifer Sultana NP Primary Care Provider [phone] Encounter Details Date Type Department Care Team ([facility] Contact Info) Description 08/12/2024 Telephone [facility] [address] [place], [place] [phone] Jennifer Sultana NP [address] [place] [address] Social History Tobacco Use Types Packs/Day Years [...] Description 12/23/2024 1:00 PM EDT Procedure Visit [facility] [address] [place] [address] Jennifer Sultana NP [address] [place] [address] documented as of this encounter Visit Diagnoses Not on filedocumented in this encounter Additional Health Concerns Assessment Noted Time PHQ-9 Depression Total Score: 27 024 2:31 PM EST documented as of this encounter Care Teams Linux Programmer Relationship Specialty Start Date End Date Jennifer Sultana NP [address] [place] [address] PCP - General Family Medicine 07/28/24 Juanito Srinivasan Putty And Patch Worker 05/10/23 Francisco J Palomino Putty And Patch WorkerCaser In 05/16/23 Fawad Vargas Putty And Patch WorkerCaser In 08/11/24 documented as of this encounter
--- OUTSIDE RECORDS SUMMARY | 2024-11-27 14:31 | XMS_ITS | Encounter Summary ---
Author Organization [employer] Address [address] [facility] 7t [place] [address] Care Team Providers Care Rotary Cutter Feeder Name Role Phone Ju Khan Primary Care Provider [phone] Jennifer Sultana NP Primary Care Provider [phone] Reason for Visit * Reason Onset Date Comments PT1 06/19/2023 Encounter Details Date Type Department Care Team ([facility] Contact Info) Description 06/19/2023 Telephone [facility] 230 [place], [place] [phone] Ju Khan ANP 230 [place], [place] [phone] PT1 Social History Tobacco Use Types Packs/Day [...] / denial letter via mail. PT-1 Request [id number] Authorized - [address] [address] Wrote called and spoke with pt regarding PT1. [facility] GI PT1 is good through October 2023 & [facility] Pulmonology is good through 01/2024. Pt just needed [facility] * Telephone Encounter - Lupis Cano - 06/19/2023 2:15 PM EDT Tc from pt requesting PT1 renewal Date: n/a Time: n/a Visits: n/a Address: [address] [facility] [place] Facility: [facility] pulmonology Wheel Chair: no, cane Bakery Chef Needed: no Date: 07/04 Time: 12 PM Visits: n/a Address: [address] [place] [address] Willi [place] Facility: [facility] Gastroenterology Wheel Chair: no, cane Bakery Chef Needed: no documented in this encounter Plan of Treatment Upcoming Encounters Date Type Department Care Team (Late st Contact Info) Description 12/23/2024 1:00 PM EDT Procedure Visit [facility] [address] [place] [address] Jennifer Sultana NP [address] [place] [address] documented as of this encounter Visit Diagnoses Not on filedocumented in this encounter Additional Health Concerns Assessment Noted Time PHQ-9 Depression Total Score: 9 12/01/19 23 10:12 AM EDT documented as of this encounter Care Teams Rotary Cutter Feeder Relationship Specialty Start Date End Date Ju Khan ANP [address] [place] [address] PCP - General Family Medicine 03/20/22 07/27/24 Jennifer Sultana NP [address] [place] [address] PCP - General Family Medicine 07/28/24 Juanito Srinivasan Inspector Eyeglass Frames 05/10/23 Francisco J Palomino Inspector Eyeglass FramesStrategic Planning Director 05/16/23 Fawad Vargas Inspector Eyeglass FramesStrategic Planning Director 08/11/24 documented as of this encounter
--- OUTSIDE RECORDS SUMMARY | 2024-11-27 14:31 | XMS_ITS | Encounter Summary ---
Demographics Address [address] [facility] [address] [place] [address] Mobile Phone Work Phone Email Address Preferred Language en Marital Status Pentecostalism Affiliation Unknown Race White Ethnic Group Unknown Author Organization [employer] Address [address] [facility] 7t [place] [address] Care Team Providers Care Public Relations Intern Name Role Phone Jennifer Sultana NP Primary Care Provider [phone] Reason for Visit * Reason Comments Med Refill Encounter Details Date Type Department Care Team ([facility] Contact Info) Description 08/10/2024 Refill [facility] 230 [place], [place] [phone] Ju Khan, ANP [address] [place] [address] Spondylosis 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 Social [...] Description 12/23/2024 1:00 PM EDT Procedure Visit [facility] 230 [place] [address] Jennifer Sultana NP [address] [place] [address] documented as of this encounter Visit Diagnoses Diagnosis Spondylosis 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 documented in this encounter Additional Health Concerns Assessment Noted Time PHQ-9 Depression Total Score: 27 024 2:31 PM EST documented as of this encounter Care Teams Public Relations Intern Relationship Specialty Start Date End Date Jennifer Sultana NP [address] [place] [address] PCP - General Family Medicine 07/28/24 Juanito Srinivasan Diversified Crops Farmer 05/10/23 Francisco J Palomino Diversified Crops FarmerStudent Success Counselor 05/16/23 Fawad Vargas Diversified Crops FarmerStudent Success Counselor 08/11/24 documented as of this encounter
--- OUTSIDE RECORDS SUMMARY | 2024-11-27 14:31 | XMS_ITS | Encounter Summary ---
Author Organization [employer] Address [address] [facility] 7t [place] [address] Care Team Providers Care Homebirth Midwife Name Role Phone Ju Khan Primary Care Provider [phone] Jennifer Sultana NP Primary Care Provider [phone] Reason for Visit * Reason Onset Date Comments Referral 06/19/2023 Encounter Details Date Type Department Care Team ([facility] Contact Info) Description 06/19/2023 Telephone [facility]INE [address] [place], [place] [phone] Ju Khan ANP 230 [place], [place] [phone] Referral Social History Tobacco Use Types Packs/Day [...] from pt requesting a new location for stress test technician referral. Any questions, contact pt at [phone] documented in this encounter Plan of Treatment Upcoming Encounters Date Type Department Care Team (Late st Contact Info) Description 12/23/2024 1:00 PM EDT Procedure Visit [facility] [address] [place] [address] Jennifer Sultana NP [address] [place] [address] documented as of this encounter Visit Diagnoses Not on filedocumented in this encounter Additional Health Concerns Assessment Noted Time PHQ-9 Depression Total Score: 9 12/01/19 23 10:12 AM EDT documented as of this encounter Care Teams Homebirth Midwife Relationship Specialty Start Date End Date Ju Khan ANP [address] [place] [address] PCP - General Family Medicine 03/20/22 07/27/24 Jennifer Sultana NP [address] [place] [address] PCP - General Family Medicine 07/28/24 Juanito Srinivasan Shirt Ironer 05/10/23 Francisco J Palomino Shirt IronerRehab Spec 05/16/23 Fawad Vargas Shirt IronerRehab Spec 08/11/24 documented as of this encounter
--- OUTSIDE RECORDS SUMMARY | 2024-11-27 14:31 | XMS_ITS | Clinical Summary ---
Author Organization [address] [place] [address] Address [address] [place] [address] Phone Care Team Providers Care Vocational Nurse Lvn Name Role Phone Jennifer Sultana PRATIK Primary Care Provider [phone] Allergies Active Allergy Reactions Criticality Noted Date Comments Amoxicillin 09/30/2024 Aspirin 09/30/2024 Sulfamethoxazole-Trimethoprim 2024 Citalopram 09/30/2024 Codeine 09/30/2024 Haloperidol 09/30/2024 Lamotrigine 09/30/2024 Morphine 09/30/2024 Penicillins 09/30/2024 Sulfa (Sulfonamide Antibiotics) 11/2024 Encounters Date Type Department Care Team Description 09/30/2024 1:15 PM EST Consult [facility] [place] [address] [address] Artie Goodrich, LEENA Pain in [...] PM EDT Office Visit [facility] [place] [address] 175 [facility] [address] [place] [address] Artie Goodrich, DPM 175 [facility] [address] [place] [address] Health Maintenance Due Date Last Done Comments [...] to complete this topic Insurance MEDICAID - [place] Care Teams Vocational Nurse Lvn Relationship Specialty Start Date End Date Jennifer Sultana FNP [address] [place] [id number] PCP - General Nurse Practitioner 08/18/24
--- OUTSIDE RECORDS SUMMARY | 2024-11-27 14:31 | XMS_ITS | Encounter Summary ---
Author Organization [employer] Address 75 [facility] 7t [place] [address] Care Team Providers Care Soil Conservation Teacher Name Role Phone Ju Khan Primary Care Provider [phone] Jennifer Sultana NP Primary Care Provider [phone] Reason for Visit * Reason Comments Med Refill Encounter Details Date Type Department Care Team ([facility] Contact Info) Description 07/15/2024 Refill [facility] 230 [place], [place] [phone] Ju Khan ANP 230 [place] [address] Multiple joint pain Social History Tobacco Use [...] Description 12/23/2024 1:00 PM EDT Procedure Visit [facility] 230 [place] [address] Jennifer Sultana NP 230 [place] [address] documented as of this encounter Visit Diagnoses Diagnosis Multiple joint pain Pain in joint, multiple sites documented in this encounter Additional Health Concerns Assessment Noted Time PHQ-9 Depression Total Score: 3 04/04/20 24 1:48 PM EDT documented as of this encounter Care Teams Soil Conservation Teacher Relationship Specialty Start Date End Date Ju Khan ANP [address] [place] [address] PCP - General Family Medicine 03/20/22 07/27/24 Jennifer Sultana NP [address] [place] [address] PCP - General Family Medicine 07/28/24 Juanito Srinivasan Dental Instrument Maker 05/10/23 Francisco J Palomino Dental Instrument MakerInserting Operator 05/16/23 Fawad Vargas Dental Instrument MakerInserting Operator 08/11/24 documented as of this encounter
--- OUTSIDE RECORDS SUMMARY | 2024-11-27 14:31 | XMS_ITS | Encounter Summary ---
Author Organization [employer] Address [address] [place] [address] 7 [place] [address] Care Team Providers Care Membership Counselor Name Role Phone Ju Khan Primary Care Provider [phone] Jennifer Sultana NP Primary Care Provider [phone] Reason for Visit * Reason Comments Med Refill Encounter Details Date Type Department Care Team ([facility] Contact Info) Description 05/23/2023 Refill [facility] 230 [place], [place] [phone] Ju Khan ANP 230 [place], [place] [phone] Multiple joint pain Social History Tobacco Use [...] Upcoming Encounters Date Type Department Care Team ([facility] Contact Info) Description 12/23/2024 1:00 PM EDT Procedure Visit [facility] [address] [place] [phone] Jennifer Sultana NP 230 [place] [address] documented as of this encounter Visit Diagnoses Diagnosis Multiple joint pain Pain in joint, multiple sites documented in this encounter Additional Health Concerns Assessment Noted Time PHQ-9 Depression Total Score: 9 12/01/19 23 10:12 AM EDT documented as of this encounter Care Teams Membership Counselor Relationship Specialty Start Date End Date Ju Khan ANP 230 [place] [address] PCP - General Family Medicine 03/20/22 07/27/24 Jennifer Sultana NP 230 [place] [address] PCP - General Family Medicine 07/28/24 Juanito Srinivasan Tanning Wheel Operator 05/10/23 Francisco J Palomino Tanning Wheel OperatorEnd Finder Forming Department 05/16/23 aFwad Vargas Tanning Wheel OperatorEnd Finder Forming Department 08/11/24 documented as of this encounter
--- OUTSIDE RECORDS SUMMARY | 2024-11-27 14:31 | XMS_ITS | Encounter Summary ---
Author Organization [employer] Address 75 [facility] 7t [place] [address] Care Team Providers Care Car Wash Manager Name Role Phone Ju Khan Primary Care Provider [phone] Jennifer Sultana NP Primary Care Provider [phone] Reason for Visit * Reason Onset Date Comments PT-1 06/11/2024 Encounter Details Date Type Department Care Team ([facility] Contact Info) Description 06/11/2024 Telephone [facility] MED[facility]INE 230 [place], [place] [phone] Ju Khan ANP 230 [place], [place] [phone] PT-1 Social History Tobacco Use Types Packs/Day [...] Y/N: Yes Provider name or facility name: [facility] (Dr. Philippe Evans) Facility Address: [address] [place] [address] Escort needed: Y/N: Yes Do you have a wheelchair: Y/N: No If yes- Manual or electric: (Uses walker and cane) Visits: 3 times a month - Patient calling requesting PT1 Home Address verified: Y/N: Yes Provider name or facility name: [facility] Facility Address: [address] [place] [address] Escort needed: Y/N: Yes Do you have a wheelchair: Y/N: No If yes- Manual or electric: Walker and Cane Visits: 4 a month - Patient calling requesting PT1 Home Address verified: Y/N: Yes Provider name or facility name: Ramez John MD Facility Address: [address] [place] [address] Escort needed: Y/N: Yes Do you have a wheelchair: Y/N: No If yes- Manual or electric: Walker and cane Visits: 3 monthly documented in this encounter Plan of Treatment Upcoming Encounters Date Type Department Care Team (Late st Contact Info) Description 12/23/2024 1:00 PM EDT Procedure Visit [facility]INE 230 [place] [address] Jennifer Sultana, BRENTON 230 [place] [address] documented as of this encounter Visit Diagnoses Not on filedocumented in this encounter Additional Health Concerns Assessment Noted Time PHQ-9 Depression Total Score: 3 04/04/20 1:48 PM EDT documented as of this encounter Care Teams Car Wash Manager Relationship Specialty Start Date End Date Ju Khan ANP [address] [place] [phone] PCP - General Family Medicine 03/20/22 07/27/24 Jennifer Sultana NP 230 [place] [address] PCP - General Family Medicine 07/28/24 Juanito Srinivasan Laser Beam Trim Operator 05/10/23 Francisco J Palomino Laser Beam Trim OperatorWorkers Compensation Consultant 05/16/23 Fawad Vargas Laser Beam Trim OperatorWorkers Compensation Consultant 08/11/24 documented as of this encounter
--- OUTSIDE RECORDS SUMMARY | 2024-11-27 14:31 | XMS_ITS | Encounter Summary ---
Author Organization [employer] Address 75 [facility] 7t [place] [address] Care Team Providers Care Clinic Lead Name Role Phone Ju Khan Primary Care Provider [phone] Jennifer Sultana NP Primary Care Provider [phone] Reason for Visit * Reason Onset Date Comments PT1 02/06/2024 Encounter Details Date Type Department Care Team ([facility] Contact Info) Description 02/06/2024 Telephone [facility] 230 [place], [place] [phone] Ju Khan ANP 230 [place], [place] [phone] PT1 Social History Tobacco Use Types Packs/Day [...] Y/N: Yes Provider name or facility name: [facility] Facility Address: [address] [place] [address] Escort needed: Y/N: Yes Do you have [...] Description 12/23/2024 1:00 PM EDT Procedure Visit [facility] [address] [place] [address] Jennifer Sultana NP 230 [place] [address] documented as of this encounter Visit Diagnoses Not on filedocumented in this encounter Additional Health Concerns Assessment Noted Time PHQ-9 Depression Total Score: 9 12/01/19 23 10:12 AM EDT documented as of this encounter Care Teams Clinic Lead Relationship Specialty Start Date End Date Ju Khan ANP 230 [place] [address] PCP - General Family Medicine 03/20/22 07/27/24 Jennifer Sultana NP 230 [place] [address] PCP - General Family Medicine 07/28/24 Juanito Srinivasan Police Inspector 05/10/23 Francisco J Palomino Police InspectorPrint Developer Automatic 05/16/23 Fawad Vargas Police InspectorPrint Developer Automatic 08/11/24 documented as of this encounter
--- OUTSIDE RECORDS SUMMARY | 2024-11-27 14:31 | XMS_ITS | Encounter Summary ---
Author Organization [employer] Address 75 [facility] 7t [place] [address] Care Team Providers Care Vehicle And Equipment Cleaner Name Role Phone Ju Khan ANP Primary Care Provider [phone] Jennifer Sultana NP Primary Care Provider [phone] Reason for Visit * Reason Onset Date Comments PT1 03/09/2023 Encounter Details Date Type Department Care Team ([facility] Contact Info) Description 03/09/2023 Telephone [facility] MEDICINE 230 [place], [place] [phone] Ju Khan ANP [address] [place], [place] [phone] PT1 Social History Tobacco Use Types Packs/Day [...] PM EDT PT1 initiated for [facility] in [facility] will send pt a letter with instructions * Telephone Encounter - Lupis Jerome - 03/09/2023 1:13 PM EDT Tc from pt requesting a PT1 PT1 Date: TBD Time: TBD Address: [address] [place] [address] Specialty: radiculopathy Facility: [facility] Pick Up: no Wheelchair: no, cane documented in this encounter Plan of Treatment Upcoming Encounters Date Type Department Care Team (Late st Contact Info) Description 12/23/2024 1:00 PM EDT Procedure Visit [facility] MEDICINE [address] [place] [address] Jennifer Sultana, BR[place]ON 230 [place] [address] documented as of this encounter Visit Diagnoses Not on filedocumented in this encounter Additional Health Concerns Assessment Noted Time PHQ-9 Depression Total Score: 9 12/01/19 23 10:12 AM EDT documented as of this encounter Care Teams Vehicle And Equipment Cleaner Relationship Specialty Start Date End Date Ju Khan ANP [address] [place] [address] PCP - General Family Medicine 03/20/22 07/27/24 Jennifer Sultana NP 230 [place] [address] PCP - General Family Medicine 07/28/24 Juanito Srinivasan Ocular Care Technologist 05/10/23 Francisco J Palomino Ocular Care TechnologistEnvironmental Health Manager 05/16/23 Fawad Vargas Ocular Care TechnologistEnvironmental Health Manager 08/11/24 documented as of this encounter
--- OUTSIDE RECORDS SUMMARY | 2024-11-27 14:31 | XMS_ITS | Encounter Summary ---
Author Organization [employer] Address 75 [facility] 7t [place] [address] Care Team Providers Care Hand Cigar Making Supervisor Name Role Phone Jennifer Sultana NP Primary Care Provider [phone] Reason for Visit * Reason Onset Date Comments Reschedule 08/22/2024 Encounter Details Date Type Department Care Team ([facility] Contact Info) Description 08/22/2024 Telephone [facility]INE [address] [place] [address] Jennifer Sultana NP [address] [place] [address] Reschedule Social History Tobacco Use Types Packs/Day [...] Description 12/23/2024 1:00 PM EDT Procedure Visit [facility] 230 [place] [address] Jennifer Sultana NP [address] [place] [address] documented as of this encounter Visit Diagnoses Not on filedocumented in this encounter Additional Health Concerns Assessment Noted Time PHQ-9 Depression Total Score: 27 024 2:31 PM EST documented as of this encounter Care Teams Hand Cigar Making Supervisor Relationship Specialty Start Date End Date Jennifer Sultana NP [address] [place] [address] PCP - General Family Medicine 07/28/24 Juanito Srinivasan Pathology Lab Technician 05/10/23 Francisco J Palomino Pathology Lab TechnicianGasoline Locomotive Crane Operator 05/16/23 Fawad Vargas Pathology Lab TechnicianGasoline Locomotive Crane Operator 08/11/24 documented as of this encounter
--- OUTSIDE RECORDS SUMMARY | 2024-11-27 14:31 | XMS_ITS | Encounter Summary ---
Author Organization [employer] Address 75 [facility] 7t [place] [address] Care Team Providers Care Rotational Moulding Operator Name Role Phone Jennifer Sultana NP Primary Care Provider [phone] Reason for Visit * Reason Comments Med Refill Encounter Details Date Type Department Care Team ([facility] Contact Info) Description 11/26/2024 Refill [facility] 230 [place] [address] Jennifer Sultana NP [address] [place] [address] Spondylosis 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 Social [...] Telephone Encounter - Radha Diop LPN - 11/27/2024 12:02 PM EDT Pharmacy also requesting refill on Verapamil 120 mg capsule per pharmacy originally prescribed by Nick Tejada requesting refill from PCP/per Cardio patient has been discharged from their practicedue to 3 no shows this year. documented in this encounter Plan of Treatment Upcoming Encounters Date Type Department Care Team (Late st Contact Info) Description 12/23/2024 1:00 PM EDT Procedure Visit [facility] [address] [place] [address] Jennifer Sultana NP [address] [place] [address] documented as of this encounter Visit Diagnoses Diagnosis Spondylosis 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 documented in this encounter Additional Health Concerns Assessment Noted Time PHQ-9 Depression Total Score: 27 024 2:31 PM EST documented as of this encounter Care Teams Rotational Moulding Operator Relationship Specialty Start Date End Date Jennifer Sultana NP [address] [place] [address] PCP - General Family Medicine 07/28/24 Juanito Srinivasan Sales Warehouse Driver 05/10/23 Francisco J Palomino Sales Warehouse DriverPatient Safety Tech 05/16/23 Fawad Vargas Sales Warehouse DriverPatient Safety Tech 08/11/24 documented as of this encounter
--- OUTSIDE RECORDS SUMMARY | 2024-11-27 14:31 | XMS_ITS | Encounter Summary ---
Author Organization [employer] Address 75 [facility] 7t [place] [address] Care Team Providers Care Telecommunication Engineer Name Role Phone Ju Khan Primary Care Provider [phone] Jennifer Sultana NP Primary Care Provider [phone] Reason for Visit * Reason Onset Date Comments Med Refill 03/22/2023 Encounter Details Date Type Department Care Team ([facility] st Contact Info) Description 03/22/2023 Telephone [facility] MEDICINE 230 [place], [place] [phone] Ju Khan ANP 230 [place], [place] [phone] Med Refill Social History Tobacco Use Types [...] Description 12/23/2024 1:00 PM EDT Procedure Visit [facility] 230 [place] [address] Jennifer Sultana, [place] 230 [place] [address] documented as of this encounter Visit Diagnoses Not on filedocumented in this encounter Additional Health Concerns Assessment Noted Time PHQ-9 Depression Total Score: 9 12/01/19 23 10:12 AM EDT documented as of this encounter Care Teams Telecommunication Engineer Relationship Specialty Start Date End Date Ju Khan ANP [address] [place] [address] PCP - General Family Medicine 03/20/22 07/27/24 Jennifer Sultana NP 230 [place] [address] PCP - General Family Medicine 07/28/24 Juanito Srinivasan Tape Cutter 05/10/23 Francisco J Palomino Tape CutterRemediation Project Engineer 05/16/23 Fawad Vargas Tape CutterRemediation Project Engineer 08/11/24 documented as of this encounter
--- OUTSIDE RECORDS SUMMARY | 2024-11-27 14:32 | XMS_ITS | Encounter Summary ---
Author Organization [employer] Address [address] [facility] [address] 7t [place] [address] Care Team Providers Care Signal Apprentice Name Role Phone Ju Khan ANP Primary Care Provider [phone] Jennifer Sultana NP Primary Care Provider [phone] Reason for Visit * Reason Comments Med Refill Encounter Details Date Type Department Care Team ([facility] st Contact Info) Description 11/07/2023 Refill [facility] MEDICINE 230 [place] [address] Ju Khan ANP 230 [place] [address] Spondylosis 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 Social [...] Description 12/23/2024 1:00 PM EDT Procedure Visit [facility] 230 [place] [address] Jennifer Sultana NP 230 [place] [address] documented as of this encounter Visit Diagnoses Diagnosis Spondylosis 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 documented in this encounter Additional Health Concerns Assessment Noted Time PHQ-9 Depression Total Score: 9 12/01/19 23 10:12 AM EDT documented as of this encounter Care Teams Signal Apprentice Relationship Specialty Start Date End Date Ju Khan ANP [address] [place] [address] PCP - General Family Medicine 03/20/22 07/27/24 Jennifer Sultana NP [address] [place] [address] PCP - General Family Medicine 07/28/24 Juanito Srinivasan Guidance Adviser 05/10/23 Francisco J Palomino Guidance AdviserRotary Drum Tanner 05/16/23 Fawad Vargas Guidance AdviserRotary Drum Tanner 08/11/24 documented as of this encounter
--- OUTSIDE RECORDS SUMMARY | 2024-11-27 14:32 | XMS_ITS | Encounter Summary ---
Author Organization [employer] Address 75 [facility] 7t [place] [address] Care Team Providers Care Neurological Surgeon Name Role Phone Ju Khan Primary Care Provider [phone] Jennifer Sultana NP Primary Care Provider [phone] Reason for Visit * Reason Comments Med Refill Encounter Details Date Type Department Care Team ([facility] Contact Info) Description 10/28/2023 Refill [facility] MED[facility]INE 230 [place], [place] [phone] Ju Khan ANP 230 [place] [address] Multiple joint pain Social History Tobacco Use [...] Description 12/23/2024 1:00 PM EDT Procedure Visit [facility] 230 [place] [address] Jennifer Sultana NP 230 [place] [address] documented as of this encounter Visit Diagnoses Diagnosis Multiple joint pain Pain in joint, multiple sites documented in this encounter Additional Health Concerns Assessment Noted Time PHQ-9 Depression Total Score: 9 12/01/19 10:12 AM EDT documented as of this encounter Care Teams Neurological Surgeon Relationship Specialty Start Date End Date Ju Khan ANP [address] [place] [address] PCP - General Family Medicine 03/20/22 07/27/24 Jennifer Sultana NP [address] [place] [address] PCP - General Family Medicine 07/28/24 Juanito Srinivasan Hotel Or Motel Manager 05/10/23 Francisco J Palomino Hotel Or Motel ManagerIntake Clinician 05/16/23 Fawad Vargas Hotel Or Motel ManagerIntake Clinician 08/11/24 documented as of this encounter
--- OUTSIDE RECORDS SUMMARY | 2024-11-27 14:32 | XMS_ITS | Clinical Summary ---
Author Organization [employer] Address [address] [place] [address] 7[address] [place] [address] Care Team Providers Care Ophthalmologist Name Role Phone Jennifer Sultana NP Primary Care Provider Allergies Active Allergy Reactions Criticality Noted Date [...] TAKE 1 CAPSULE BY MOUTH EVERY MORNING Active amphetamine-dextr oamphetamine (Adderall) 20 MG tablet TAKE 1 TABLET BY MOUTH AT 1 IN THE AFTERNOON Active Suboxone 12-3 MG per sublingual film DISSOLVE 2 FILMS UNDER THE TONGUE DAILY Active clonazePAM (KlonoPIN) 2 MG tablet TAKE 1 TABLET BY MOUTH UP TO THREE TIMES DAILY NEEDED FOR ANXIETY Active cloNIDine (Catapres) 0.1 MG tablet TAKE 3 TABLETS BY MOUTH AT BEDTIME FOR SLEEP Active theophylline ER (Uniphyl) 400 MG 24 hr tablet TAKE 1 TABLET BY MOUTH EVERY MORNING Active verapamil ER (Verelan) 120 MG 24 hr capsule TAKE 1 CAPSULE BY MOUTH EVERY EVENING Active ziprasidone (Geodon) 80 MG capsule TAKE 1 CAPSULE BY MOUTH AT BEDTIME Active zolpidem (Ambien) 10 MG tablet TAKE 1 TABLET BY MOUTH AT BEDTIME Active Stiolto Respimat 2.5-2.5 MCG/ACT aerosol solution inhaler INHALE 2 PUFFS BY MOUTH ONCE DAILY 4 g 3 023 Active albuterol (Ventolin HFA) 108 (90 Base) MCG/ACT inhaler INHALE 2 PUFFS BY MOUTH EVERY 4 TO 6 HOURS NEEDED FOR SHORTNESS OF BREATH 18 g 1 023 Active sertraline (Zoloft) 100 MG tablet TAKE 2 TABLETS BY MOUTH ONCE DAILY IN THE MORNING 180 tablet 024 Active cyclobenzaprine (Flexeril) 5 MG tabletIndications :Chronic pain syndrome TAKE 1 TABLET BY MOUTH AT BEDTIME NEEDED FOR PAIN 30 tablet 1 024 Active polycarbophil (FiberCon) 625 MG tablet Take 1 tablet (625 mg) by mouth in the morning. 90 tablet 3 024 2024 Active docusate sodium (Colace) 100 MG capsule TAKE 1 CAPSULE BY MOUTH TWICE DAILY IN THE MORNING AND IN THE EVENING 180 capsule 3 Active furosemide (Lasix) 20 MG tablet Take 20 mg by mouth in the morning. Active dicyclomine (Bentyl) 20 MG tablet TAKE 1 TABLET BY MOUTH THREE TIMES DAILY NEEDED FOR ABDOMINAL PAIN Active Colloidal Oatmeal 1 % lotionIndications :Generalized pruritus Apply as needed to affected areas for itching, dry skin 296 mL 11 Active Asmanex HFA 200 MCG/ACT aerosol Inhale 2 puffs 2 times daily. Active polyethylene glycol, PEG, 3350 (Miralax) 17 g packet Mix 1 packet in 8 ounces of water, juice, coffee or tea and drink once a day NEEDED FOR CONSTIPATION Active Blood Pressure kitIndications:Es sential hypertension 1 each 2 times daily. 1 kit 024 2024 Active ipratropium-albut nitesh (Duo-Neb) 0.5-2.5 mg/3 mL nebulizer solution Take 3 mL by nebulization every 6 (six) hours if needed for wheezing or shortness of breath. Active fluticasone (Flonase) 50 MCG/ACT nasal sprayIndications: Chronic rhinitis USE 1 SPRAY IN EACH NOSTRIL IN THE MORNING 48 g Active folic acid (Folvite) 1 MG tablet TAKE 1 TABLET BY MOUTH EVERY MORNING 90 tablet 1 Active rosuvastatin (Crestor) 10 MG tabletIndications :Mixed hyperlipidemia TAKE 1 TABLET BY MOUTH EVERY MORNING 90 tablet 1 024 Active ondansetron (Zofran) 4 MG tablet Take 1 tablet (4 mg) by mouth if needed each day for nausea or vomiting. 10 tablet 024 2024 Active senna (Senokot) 8.6 MG tablet TAKE 2 TABLETS BY MOUTH EVERY DAY AT BEDTIME FOR CONSTIPATION 180 tablet 1 Active famotidine (Pepcid) 20 MG tabletIndications :Stage 3a chronic kidney disease (CMS/HCC) Take 1 tablet (20 mg) by mouth Once per day. 30 tablet 11 024 2024 Active pregabalin (Lyrica) 75 MG capsuleIndication s:Spondylosis 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 TAKE 1 CAPSULE BY MOUTH THREE TIMES DAILY IN THE MORNING, EVENING, AND BEDTIME 90 capsule 2 024 Active metoprolol tartrate (Lopressor) 25 MG tablet TAKE 1/2 TABLET BY MOUTH TWICE DAILY IN THE MORNING AND EVENING 90 tablet 3 024 Active pantoprazole (Protonix) 40 MG EC tabletIndications :Gastroesophageal reflux disease, unspecified whether esophagitis present TAKE 1 TABLET BY MOUTH BEFORE BREAKFAST. DO NOT CRUSH, CHEW OR SPLIT. 90 tablet 1 025 Active pantoprazole (Protonix) 40 MG EC tabletIndications :Gastroesophageal reflux disease, unspecified whether esophagitis present Take 1 tablet (40 mg) by mouth before breakfast. Do not crush, chew, or split. 30 tablet 11 024 2024 Discontinued(R eorder (will not trigger notification to Pharmacy)) Active Problems Problem Noted Date Diagnosed Date [...] Encounters Date Type Department Care Team Description 11/26/2024 Refill [facility] [address] [place] [address] Jennifer Sultana NP Spondylosis 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 11/07/2024 Population Health Risk Score [facility] ([facility]) Department [address] [phone] Provider, Population Health Generic 10/29/2024 Telephone [facility] [address] [place] [address] Jennifer Sultana NP Patient survey 10/28/[address] [address] Jennifer Sultana NP Gastroesophageal reflux disease, unspecified whether esophagitis present 10/22/2024 Orders Only GENERIC EXTERNAL DATA DEPARTMENT Provider, Generic External Data 10/07/2024 Travel 10/06/[address] [address] Peyton Roe [place] Chart Prep 09/23/2024 Orders Only [address] [address] Jennifer Sultana NP Stage 3a chronic kidney disease (CMS/HCC) (Primary Dx) 09/23/2024 Orders Only [address] [address] Jennifer Sultana NP Stage 3a chronic kidney disease (CMS/HCC) (Primary Dx) 09/18/[address] [address] Peyton Roe [place] Chart Prep 09/18/[address] [address] Jennifer Sultana NP Referral 09/08/[address] [address] Michelle Vigil RN Results 09/03/2024 Orders Only [facility] External Provider, [facility] 09/01/[address] [address] Jennifer Sultana NP Results from Last 3 Months Immunizations Name Administration [...] 07/28/2024 1:54 PM EST Plan of Treatment Upcoming Encounters Date Type Department Care Team (Late st Contact Info) Description 12/23/2024 1:00 PM EDT Procedure Visit [facility] [address] [place], [place] [phone] Jennifer Sultana NP [address] [place] [address] Health Maintenance Due Date Last Done Comments [...] SDOH Screening 03/21/2025 03/21/2024 Mammogram 06/30/2025 06/30/2024, 1011/2023, 04/04/2023, Additional history exists Alcohol/Substance Use Screening 07/28/2025 07/28/2024 Depression Screening 07/28/2025 07/28/2024, 07/28/20 Tobacco Screening 08/17/2025 08/17/2024 DTaP/Tdap/Td Vaccines (2 - Td or Tdap) 10/25/2026 10/25/2016, 03/04/2010 Lipid Panel 05/02/2029 05/02/2024, 06/03/2023, 05/08/2022, Additional history exists RSV Patients and [...] Procedure Name Priority Date/Time Associated Diagnosis Comments PHOSPHOLIPASE A2 RECEPTOR (PLA2R) AB PANEL Routine 10/22/2024 3:55 PM EST HEPATITIS B CORE ANTIBODY (IGM) Routine 10/22/2024 3:55 PM EST PROTEINASE-3 ANTIBODY Routine 10/22/2024 3:55 PM EST MYELOPEROXIDASE ANTIBODY (MPO) Routine 10/22/2024 3:55 PM EST GLOMERULAR BASEMENT MEMBRANE ANTIBODY (IGG) Routine 10/22/2024 3:55 PM EST DNA (DS) ANTIBODY Routine 10/22/2024 3:5 5 PM EST SCL-70 ANTIBODY Routine 10/22/2024 3:55 PM EST IMMUNOFIXATION, SERUM Routine 10/22/2024 3:55 PM EST COMPLEMENT COMPONENT C4C Routine 10/22/2024 3:55 PM EST COMPLEMENT COMPONENT C3C Routine 10/22/2024 3:55 PM EST HEPATITIS B CORE AB TOTAL Routine 10/22/2024 3:55 PM EST HEPATITIS B SURFACE ANTIGEN, EIA Routine 10/22/2024 3:55 PM EST VITAMIN D,25-OH,TOTAL,IA Routine 10/22/2024 3:55 PM EST [...] 10/22/2024 3:55 PM EST Generalized abdominal pain IMMUNOFIXATION, URINE Routine 10/22/2024 3:49 PM EST PROTEIN CREATININE RATIO, URINE Routine 10/22/2024 3:49 PM EST URINALYSIS WITH REFLEX TO MICROSCOPIC Routine 10/22/2024 3:49 PM EST ALBUMIN, RANDOM URINE W/CREATININE Routine 10/22/2024 3:49 PM EST Essential hypertension XR KNEE 1-2 VIEWS RIGHT Routine 09/03/19 25 1:09 PM EST BI MAMMOGRAM SCREENING TOMOSYNTHESIS BILATERAL Routine 06/19/2024 1:23 PM EDT LIPID PANEL, STANDARD Routine 05/02/2024 2:55 PM EDT HIV 1/2 ANTIGEN/ANTIBODY, FOURTH GENERATION W/RFL Routine 05/08/2022 2:27 PM EDT HM COLONOSCOPY Routine 04/12/2018 ZZZ HISTORICAL HPV MRNA E6/E7 Routine 10/25/2016 9:30 AM EST from Last 3 Months or Most Recently Relevant to Health Maintenance Results * Proteinase-3 Antibody (10/22/2024 3:55 PM EST) Proteinase-3 Antibody <1.0 [facility] Comment:Value Interpretation ----- <1.0 No Antibody Detected > or = 1.0 Antibody DetectedAutoantibodies to proteinase-3 (IN-3) are accepted ascharacteristic for granulomatosis with polyangiitis(GPA, Aby's), and are detectable in 95% of thehistologically proven cases. The cytoplasmic IFApattern, (c-ANCA), is based largely on autoantibody toPR-3 which serves as the primary antigen.These autoantibodies are present in active disease.THIS TEST WAS PERFORMED AT:[facility] [place] [id number] NICHOLE MD 10/22/2024 3:55 PM EST 10/22/2024 3:55 PM EST Generic External Data Provider LAB BLOOD ORDERAB LES Final Result Performing Organization Address [facility]/ZIP Co de Phone Number [facility] [address] [place] [address] [phone] * Myeloperoxidase Antibody (MPO) (10/22/2024 3:55 PM EST) Myeloperoxidase Antibody <1.0 AI [facility] Comment:Value Interpretation ----- <1.0 No Antibody Detected > or = 1.0 Antibody DetectedAutoantibodies to myeloperoxidase (MPO) are commonlyassociated with the following small-vesselvasculitides: microscopic polyangiitis,polyarteritis nodosa, Churg-Joselito syndrome,necrotizing and crescentic glomerulonephritis andoccasionally granulomatosis with polyangiitis(GPA, Aby's). The perinuclear IFA pattern,(p-ANCA) is based largely on autoantibody tomyeloperoxidase which serves as the primary antigen.These autoantibodies are present in active disease.THIS TEST WAS PERFORMED AT:[facility] [address] [id number] NICHOLE MD 10/22/2024 3:55 PM EST 10/22/2024 3:55 PM EST Generic External Data Provider LAB BLOOD ORDERAB LES Final Result Performing Organization Address [facility]/ZIP Co de Phone Number [facility] [address] [place] [phone] * (ABNORMAL) Vitamin D, 25-Hydroxy, Total, Immunoassay (10/22/2024 3:55 PM EST) Vitamin D 25-OH Total 21.7(L) >30 ng/mL [facility] Comment:Health Based Referen ce Values*< 20 ng/mL Defwyrwoh31-77 ng/mL Insufficient> 30 ng/mL Sufficient*Micki ALFARO. N [...] ORDERAB LES Final Result Performing Organization Address [facility] de Phone Number [facility] [address] [place] [phone] * Phospholipase A2 Receptor (PLA2R) Antibody Panel (10/22/2024 3:55 PM EST) Phospholipase A2 Receptor (PLA2R) Ab, WILLOW <4 RU/mL [facility] Comment:Reference Range: <14 : NEGATIVE 14-19: BORDERLINE >19: POSITIVE Phospholipase A2 Receptor (PLA2R) Ab, IFA NEGATIVE NEGATIVE [facility] Comment:THIS TEST WAS PERFOR MED AT:[facility] [id number] [place] [address]VJCDGKENNA SZYMANSKI MD,PHD,AFSHAN 10/22/2024 3:55 PM EST 10/22/2024 3:55 PM EST Generic External Data Provider LAB BLOOD ORDERAB LES Final Result Performing Organization Address [facility] Co de Phone Number [facility] [address] [place] [phone] * (ABNORMAL) CBC auto differential (10/22/2024 3:55 PM EST) Only the most recent of2 resultswithin the time period is included. White Blood Count 9.9 4.8 - 10.8 X10*3/uL [facility] Red Blood Count 4.59 4.20 - 5.50 X10*6/uL [facility] Hemoglobin 13.0 12.0 - 16.0 g/dl [facility] Hematocrit 38.3 37.0 - 47.0 % [facility] Mean Corpuscular Volume 83.4 80.0 - 98.0 fL [facility] Mean Corpuscular Hemoglobin 28.3 27.0 - 33.0 pg [facility] Mean Corpuscular HGB Conc 33.9 31.0 - 35.0 g/dl [facility] Red Cell Distribution Width 16.3(H) 11.0 - 16.0 % [facility] Platelet Count 214 160 - 400 X10*3/uL [facility] Mean Platelet Volume 11.4 9.4 - 12.3 fL [facility] Neutrophils Percent Auto 66.6 45 - 73 % [facility] Imm Gran Pct Auto 0.3 0.0 - 0.4 % [facility] Lymphocytes Percent Auto 20.1 20 - 40 % [facility] Monocytes Percent Auto 4.3 2 - 11 % [facility] Eosinophils Percent Auto 8.3(H) 0 - 4 % [facility] Basophils Percent Auto 0.4 0 - 2 % [facility] NRBC Pct Auto 0.0 0.0 - 0.2 /100WBC [facility] Neutrophils Absolute Auto 6.6 2.0 - 8.3 x10*3/uL [facility] Imm Gran Abs Auto 0.03 0.00 - 0.03 X10*3/uL [facility] Lymphocytes Absolute Auto 2.0 1.2 - 4.9 X10*3/uL [facility] Monocytes Absolute Auto 0.4 0.1 - 1.2 X10*3/uL [facility] Eosinophils Absolute Auto 0.8(H) 0.0 - 0.4 X10*3/uL [facility] Basophils Absolute Auto 0.0 0.0 - 0.2 X10*3/uL [facility] NRBC Abs Auto 0.000 0.0 - 0.012 X10*3/uL [facility] 10/22/2024 3:55 PM EST 10/22/2024 3:55 PM EST us Generic External Data Provider LAB BLOOD ORDERAB LES Final Result Performing Organization Address [facility] de Phone Number [facility] [address] [place] [phone] * Iron And Total Iron Binding Capacity (10/22/2024 3:55 PM EST) Iron 47 30 - 160 mcg/dL [facility] Total Iron Binding Capacity 273 228 - 428 mcg/dL [facility] Percent Iron Saturation 17 15 - 50 % [facility] Unsaturated Iron Binding 226 ug/dL [facility] 10/22/2024 3:55 PM EST 10/22/2024 3:55 PM EST us Generic External Data Provider LAB BLOOD ORDERAB LES Final Result Performing Organization Address [facility] Number [facility] [address] [place] [phone] * SCL-70 Antibody (10/22/2024 3:55 PM EST) SCL-70 Antibody <1.0 NEG <1.0 NEG AI [facility] Comment:THIS TEST WAS PERFOR MED AT:[facility] [place] [id number] NICHOLE MD 10/22/2024 3:55 PM EST 10/22/2024 3:55 PM EST us Generic External Data Provider LAB BLOOD ORDERAB LES Final Result Performing Organization Address [facility] de Phone Number [facility] [address] [place] [phone] * Glomerular Basement Membrane Antibody (IgG) (10/22/2024 3:55 PM EST) Glomerular Basement Memebrane Antibody (IgG) <1.0 AI [facility] Comment:Value Interpretation ----- <1.0 No Antibody Detected > or = 1.0 Antibody DetectedTHIS TEST WAS PERFORMED AT:[facility] [address] [id number] NICHOLE MD 10/22/2024 3:55 PM EST 10/22/2024 3:55 PM EST Generic External Data Provider LAB BLOOD ORDERAB LES Final Result Performing Organization Address [facility] Co de Phone Number [facility] [address] [place] [phone] * DNA (ds) Antibody (10/22/2024 3:55 PM EST) Anti DNA DS Antibody <1 IU/mL [facility] Comment:IU/mL Interpretation < or = 4 Negative 5-9 Indeterminate > or = 10 PositiveTHIS TEST WAS PERFORMED AT:[facility] [address] [id number] NICHOLE MD 10/22/2024 3:55 PM EST 10/22/2024 3:55 PM EST Generic External Data Provider LAB BLOOD ORDERAB LES Final Result Performing Organization Address [facility]/ZIP Co de Phone Number [facility] [address] [place] [phone] * Hepatitis B Core??Antibody (IgM) (10/22/2024 3:55 PM EST) Hepatitis B Core Antibody IgM NON-REACTI VE NON-REACTI VE [facility] Comment:For additional infor matrhonda, please refer tohttp://education.[employer]/faq/SEA436(This link is being provided for informational/educational purposes only.)THIS TEST WAS PERFORMED AT:[facility] [address] [id number] NICHOLE MD 10/22/2024 3:55 PM EST 10/22/2024 3:55 PM EST Generic External Data Provider LAB BLOOD ORDERAB LES Final Result Performing Organization Address [facility] Co de Phone Number [facility] [address] [place] [phone] * Hepatitis B surface antigen, EIA (10/22/2024 3:55 PM EST) Pathologist [facility] Hepatitis B Surface Ag Negative Negative [facility] 10/22/2024 3:55 PM EST 10/22/2024 3:55 PM EST Generic External Data Provider LAB BLOOD ORDERAB LES Final Result Performing Organization Address [facility] de Phone Number [facility] [address] [place] [phone] * Hepatitis B Core Antibody, Total (10/22/2024 3:55 PM EST) Pathologist [facility] Hepatitis B Core Antibody Reactive Nonreactive [facility] Comment:Presumptive evidence of anti-HBc. 10/22/2024 3:55 PM EST 10/22/2024 3:55 PM EST Generic External Data Provider LAB BLOOD ORDERAB LES Final Result Performing Organization Address [facility] de Phone Number [facility] [address] [place] [phone] * (ABNORMAL) Immunofixation, Serum (10/22/2024 3:55 PM EST) Pathologist [facility] IMMUNOGLOBULIN G 1707(A) 600 - 1640 mg/dL [facility] IMMUNOGLOBULIN A 543(A) 47 - 310 mg/dL [facility] Immunoglobulin M 45(A) 50 - 300 mg/dL [facility] Comment:THIS TEST WAS PERFOR MED AT:[facility] [address] [id number] NICHOLE MD Immunofixation Result SEE NOTE [facility] Comment:No monoclonal protei ns detected. 10/22/2024 3:55 PM EST 10/22/2024 3:55 PM EST us Generic External Data Provider LAB BLOOD ORDERAB LES Final Result Performing Organization Address [facility]/ZIP Co de Phone Number [facility] [address] [place] [phone] * Complement Component C3c (10/22/2024 3:55 PM EST) Complement C3 169 83 - 193 mg/dL [facility] Comment:THIS TEST WAS PERFOR MED AT:[facility] [address] [id number] NICHOLE MD 10/22/2024 3:55 PM EST 10/22/2024 3:55 PM EST us Generic External Data Provider LAB BLOOD ORDERAB LES Final Result Performing Organization Address City/[facility] Co de Phone Number [facility] [address] [place] [phone] * Complement Component C4c (10/22/2024 3:55 PM EST) Complement C4 27 15 - 57 mg/dL [facility] Comment:THIS TEST WAS PERFOR MED AT:[facility] [address] [id number] NICHOLE MD 10/22/2024 3:55 PM EST 10/22/2024 3:55 PM EST us Generic External Data Provider LAB BLOOD ORDERAB LES Final Result Performing Organization Address [facility] Co de Phone Number [facility] [address] [place] [address] [phone] * (ABNORMAL) PTH, Intact Without Calcium (10/22/2024 3:55 PM EST) Only the most recent of2 resultswithin the time period is included. Parathyroid Hormone, Intact 188.2(H) 8.7 - 77.1 pg/mL [facility] 10/22/2024 3:55 PM EST 10/22/2024 3:55 PM EST Generic External Data Provider LAB BLOOD ORDERAB LES Final Result Performing Organization Address [facility] de Phone Number [facility] [address] [place] [phone] * Ferritin (10/22/2024 3:55 PM EST) Ferritin 44 10 - 250 ng/mL [facility] 10/22/2024 3:55 PM EST 10/22/2024 3:55 PM EST Generic External Data Provider LAB BLOOD ORDERAB LES Final Result Performing Organization Address [facility] de Phone Number [facility] [address] [place] [phone] * (ABNORMAL) Comprehensive Metabolic Panel (10/22/2024 3:55 PM EST) Sodium 139 135 - 145 mmol/L [facility] Potassium 4.1 3.3 - 5.1 mmol/L [facility] Chloride 102 96 - 108 mmol/L [facility] Carbon Dioxide 29 22 - 29 mmol/L [facility] Anion Gap 12 12 - 20 [facility] Urea Nitrogen (BUN) 12 9 - 16 mg/dL [facility] Creatinine, Serum 1.27 0.5 - 1.4 mg/dL [facility] Estimated Glomerular Filt Rate 43 [facility] Comment:Chronic Kidney Disea se: Estimated GFR < 60 mL/min/1.67q6Hygfqc Kidney Disease: Estimated GFR < 15 mL/min/1.73m2 Glucose 95 60 - 115 mg/dL [facility] Calcium 10.1 8.4 - 10.2 mg/dL [facility] Bilirubin, Total 0.2 0.0 - 1.0 mg/dL [facility] Aspartate Amino Transferase 21 5 - 31 U/L [facility] Alanine Aminotransferase 14 0 - 31 U/L [facility] Total Protein 8.5(H) 6.5 - 8.0 g/dL [facility] Albumin Level 3.8 3.5 - 5.0 g/dL [facility] Alkaline Phosphatase 99 39 - 117 U/L [facility] Blood Venous blood specimen / Unknown 10/22/2024 3:55 PM EST 10/22/2024 3:55 PM EST us Jennifer Sultana [employer] LAB BLOOD ORDERABLES Final Resul t Performing Organization Address [facility]/ZIP Co de Phone Number [facility] [address] [place] [phone] * Protein Creatinine Ratio, Urine (10/22/2024 3:49 PM EST) Creatinine, Urine 30.12 mg/dL [facility] Protein, Total, Random Urine <7 <12 mg/dL [facility] Protein/Creatin ine Ratio, Ur TNP <0.2 [facility] Comment:Unable to calculate urine protein creatinine ratio due tolow creatinine or protein result. 10/22/2024 3:49 PM EST 10/22/2024 4:08 PM EST us Generic External Data Provider LAB URINE ORDERAB LES Final Result Performing Organization Address [facility]/ZIP Co de Phone Number [facility] [address] [place] [phone] * Urinalysis with Reflex to Microscopic (10/22/2024 3:49 PM EST) Color Urine Yellow [facility] Appearance Urine Clear [facility] PH 6.5 5.0 - 9.0 [facility] Glucose Urine UA Negative Negative mg/dL [facility] Urine Blood Negative Negative [facility] Specific [place] - Urine <=1.005 1.005 - 1.025 [facility] Urine Protein Negative Neg-Trace mg/dL [facility] Urine Ketones Negative Negative mg/dL [facility] Nitrite Urine Negative Negative [facility] Leukocyte Esterase Urine Negative Negative [facility] 10/22/2024 3:49 PM EST 10/22/2024 4:08 PM EST us Generic External Data Provider LAB URINE ORDERAB LES Final Result Performing Organization Address [facility] de Phone Number [facility] [address] [place] [phone] * Immunofixation (SOLOMON), Urine (10/22/2024 3:49 PM EST) Pathologist [facility] SOLOMON Interpretation SEE NOTE H [facility] Comment:Normal pattern. No m onoclonal proteins detected.The supplier of the testing reagents for this assayhas changed. Detection of small monoclonal proteins mayvary by test system.THIS TEST WAS PERFORMED AT:[facility] [address] [id number] NICHOLE MD 10/22/2024 3:49 PM EST 10/22/2024 4:08 PM EST us Generic External Data Provider LAB URINE ORDERAB LES Final Result Performing Organization Address [facility] Co de Phone Number [facility] [address] [place] [phone] * Albumin, Random Urine W/Creatinine (10/22/2024 3:49 PM EST) Creatinine, Urine 29.30 mg/dL [facility] Microalbumin Urine <5.0 mg/L [facility] Microalbum Creatinine Ratio Ur TNP <30 ug/mg cr [facility] Comment:Unable to calculate albumin/creatinine ratio due to lowmicroalbumin or creatinine result. Urine (Urine, Random) 10/22/2024 3:49 PM EST 10/22/2024 4:08 PM EST us Manolo Garcia ANP LAB URINE ORDERABLES Final Resul t [facility] [address], [place] [phone] * XR Knee 1-2 Views Right (09/03/2024 1:09 PM EST) Anatomical Region Laterality Modality Lower Extremities, Knee Right Radiogra phic Imaging 09/03/2024 1:09 PM EST Narrative 09/08/2024 12:00 PM EST ? [facility] ? [address] ?[place] [address] ?XRay Report ? Signed ? Patient: Cherri Nash ?MR#: [id number] ?? [id number] ? : 1965 ?Acct:[id number] ? Age/Sex: 59 / F ?ADM Date: 09/03/24 ? Loc: HO.HOSX ? Attending Dr: Becca Rodriguez PA-C ? Ordering Physician: Becca Rodriguez PA-C ?? Date of Service: 09/03/24 ?? Procedure(s): XR knee RT 2V ?? Accession Number(s): [id number] ? cc: Becca Rodriguez PA-C; MANOLO GARCIA [...] ??Silvia Ruiz MD ??09/08/2024 11:57 AM EST ?? RP ? Dictated By: ?Silvia Ruiz MD ? Signed By: ?<Electronically signed by Silvia Ruiz MD in OV> ? 09/08/247 ? DD/ 1309 ? TD/TT: 09/03/24 1315 ? Acid Extractor: ? Procedure Note Donsilvio, Isabel - 09/08/2024 [facility] [address] [place] [address] [address] [place] [address] XRay Report Signed Patient: Cherri Nash JMR#: [id number] : 1965Acct:[id number] Age/Sex: 59 / FADM Date: 09/03/24 Loc: JOSÉ MIGUELTAMIKO Attending Dr: Becca Rodriguez PA-C Ordering Physician: Becca Rodriguez PA-C Date of Service: 09/03/24 Procedure(s): XR knee RT 2V Accession Number(s): [id number] cc: Becca Rodriguez PA-C; MANOLO GARCIA NP [...] 09/08/24 1157 DD/ 1309 TD/TT: 09/03/24 1315 Acid Extractor: [facility] External Provider IMG XR PROCEDURES Edited Result - Final * BI Mammogram Screening Tomosynthesis Bilateral (06/19/2024 1:23 PM EDT) Anatomical Region Laterality Modality Breast Bilateral Mammography 06/19/2024 1:23 PM EDT Narrative 06/28/2024 10:33 AM EDT ? [facility] ? [address] ?[place] [address] ? Mammography Report ? Signed ? Patient: SaadCherri Perez ?MR#: [id number] ?? [id number] ? : 1965 ?Acct:[id number] ? Age/Sex: 59 / F ?ADM Date: 06/19/24 ? Loc: HO.MAMMO ? Attending Dr: Manolo Garcia TANGIBLE PERSONAL PROPERTY APPRAISER ? Ordering Physician: MANOLO GARCIA NP ?Results: 1Negative ? Date of Service: 06/19/24 ?Follow Up: 1 Year From Orig ?? inal Mammogram ? Procedure(s): MM tomosynthesis screening BI ?? Accession Number(s): [id number] ? cc: MANOLO GARCIA NP ? EXAMINATION: ?? MM SCREENING DIGITAL BREAST [...] DD/ 1323 ? TD/TT: 06/19/24 1336 ? Acid Extractor: ? Procedure Note Donshamikabryceshawnater, Image - 06/28/2024 [facility] [address] [place] [address] Mammography Report Signed Patient: Cherri Nash JMR#: [id number] : 1965Acct:[id number] Age/Sex: 59 / FADM Date: 06/19/24 Loc: SARINA Attending Dr: Manolo Garcia NP Ordering Physician: MANOLO GARCIAesults: 1Negative Date of Service: 06/19/24Follow Up: 1 Year From Orig inal Mammogram Procedure(s): MM tomosynthesis screening BI Accession Number(s): [id number] cc: MANOLO GARCIA TANGIBLE PERSONAL PROPERTY APPRAISER EXAMINATION: MM SCREENING DIGITAL BREAST TOMOSYNTHESIS, BILATERAL [...] Sally Hernandez DO 06/28/2024 10:30 AM EDT RP Dictated By: Sally Hernandez DO Signed By: <Electronically signed by Sally Hernandez DO in OV> 06/28/24 1030 DD/ 1323 TD/TT: 06/19/24 1336 Acid Extractor: Manolo Garcia ANP IMG BI PROCEDURES Final Result * (ABNORMAL) Lipid Panel, Standard (05/02/2024 2:55 PM EDT) Triglycerides 286(H) <150 mg/dL [facility] Comment:Desirable Triglyceri de: less than 150 mg/dLBorderline High Triglyceride 150-199 mg/dLHigh Triglyceride: 200-499 mg/dLVery High Triglyceride: greater than or equal to 5OO mg/dL Cholesterol 216(H) <200 mg/dL [facility] Comment:Desirable Cholestero l: less than 200 mg/dLBorderline High Cholesterol: 200-239 mg/dLHigh Cholesterol: greater than 239 mg/dL LDL Cholesterol Calculated 123(H) <100 mg/dL [facility] Comment:Desirable LDL: less than 100 mg/dLNear Optimal/Above Optimal LDL: 110- 129 mg/dLBorderline High LDL: 130-159 mg/dLHigh LDL: 160-189 mg/dLVery High LDL: greater than or equal to 190 mg/dL HDL Cholesterol 36(L) >40 mg/dL [facility] Comment:Desirable HDL: great er than 40 mg/dL Note: This HDL assay may give artificially low results in patients with liver disease. 05/02/2024 2:55 PM EDT 05/02/2024 4:04 PM EDT Manolo Garcia [facility] LAB BLOOD ORDERABLES Final Resul t [facility] [address] [place] [address] [phone] * HIV 1/2 ANTIGEN/ANTIBODY,FOURTH GENERATION W/RFL (05/08/2022 2:27 PM EDT) [facility] HIV-1/2 ANTIGEN AND ANTIBODIES, 4TH GENERATION W/ REFLEX NON-REACT IRON NON-REACT IRON [facility] Comment: HIV-1 antigen and HIV-1/HIV-2 [...] ? For additional information please refer to http://education.BlueSprig/faq/ISW156 (This link is being provided for informational/ educational purposes only.) ? The performance of this assay has not been clinically validated in patients less than 2 years old. ?? 05/08/2022 2:27 PM EDT us Manolo Garcia [facility] LAB BLOOD ORDERABLES Final Resul t [facility] [address] [place] [address], * Hm Colonoscopy (04/12/2018) Colonoscopy Normal Normal Historical Provider HEALTH MAINTENANCE Final Result * HPV mRNA E6/E7 (10/25/2016 9:30 AM EST) HPV mRNA E6/E7 Not Detected NOT DETECTED [facility] Comment: This test was performed using the APTIMA(R) HPV Assay ([employer] This assay detects E6/E7 viral messenger RNA (mRNA) from 14 high-risk HPV types (16,18,31,33,35,39,45,51, 52,56,58,59,66,68). For additional information please refer to: http://education.BlueSprig/faq/WZT900s7 (This link is being provided for informational/ educational purposes only.) Test Performed by [facility], [facility], [address] [place] [address] Naif Pereira M.D., Ph.D., Director of Laboratories , [facility] [id number] Please note: ??Effective 05/08/2016, HPV testing will be performed using [employer]'s APTIMA test which targets mRNA. Detecting mRNA instead of DNA, as in older methods, offers significant improvements in specificity. 10/25/2016 9:30 AM EST Hazel Corcoran MD HISTORICAL/NON ORDERABLE LABS Final Result [facility] [address] from Last 3 Months or Most Recently Relevant to Health Maintenance Insurance [facility] C3 Care Teams Ophthalmologist Relationship Specialty Start Date End Date Jennifer Sultana NP [address] [place] [phone] PCP - General Family Medicine 07/28/24 Juanito Srinivasan Chief Design Drafter 05/10/23 Francisco J Palomino Chief Design DrafterCell Assembly Pinner 05/16/23 Fawad Vargas Chief Design DrafterCell Assembly Pinner 08/11/24
== END 2024-11-27 14:28 | disposition home or self-care (01) ==
LOC: HO.HUSH 13:19
PROVIDERS: PCP Nurse Practitioner Family; Visit Provider Urology
DX: R39.15 Urgency of urination (principal); R32 Unspecified urinary incontinence; Z87.891 Personal history of nicotine dependence
CPT/HCPCS: 99204

== ENCOUNTER → 2024-11-27 13:18 | Outpatient (BNVA) | payer MEDICAID, SELFPAY | PROVIDERS: PCP Nurse Practitioner Family; Visit Provider Urology | DX: R39.15 Urgency of urination (principal); R32 Unspecified urinary incontinence; Z87.891 Personal history of nicotine dependence | CPT/HCPCS: 99202 ==

== ENCOUNTER 2024-12-10 13:04 | Outpatient (AMB) | payer MEDICAID, SELFPAY ==
--- NOTE | 2024-12-10 13:12 | MHC.OFFVIS ---
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/HTN,carotid artery stenosis Allergies codeine Allergy (Severe, Verified 11/27/24 13:54) Anaphylaxis aspirin Allergy (Mild, Verified 11/27/24 13:54) Hives Penicillins [PENICILLINS] Allergy (Mild, Verified 11/27/24 13:54) HIVES Sulfa (Sulfonamide Antibiotics) Allergy (Mild, Verified 11/27/24 13:54) Hives sulfamethoxazole [From Bactrim] Allergy (Mild, Verified 11/27/24 13:54) inflamed hives, rash, trimethoprim [From Bactrim] Allergy (Mild, Verified 11/27/24 13:54) inflamed hives, rash, amoxicillin [AMOXICILLIN] Allergy (Unknown, Verified 11/27/24 13:54) HIVES albuterol Allergy (Verified 11/27/24 13:54) Hives citalopram [From Celexa] Allergy (Verified 11/27/24 13:54) Hives lamotrigine [From Lamictal] Allergy (Verified 11/27/24 13:54) Hives olanzapine Allergy (Verified 11/27/24 13:54) Hives morphine Adverse Reaction (Mild, Verified 11/27/24 13:54) Itching haloperidol [From Haldol] Adverse Reaction (Verified 11/27/24 13:54) Angioedema Medication List - Last Reconciled 12/10/24 by Mike Mcfadden MD albuterol sulfate 90 mcg/actuation 2 puffs PO Q4-6H PRN buprenorphine-naloxone 12-3 mg (Suboxone) 30 mg sublingual DAILY cyclobenzaprine 5 mg PO ONCE PRN docusate sodium (Colace) 200 mg (2 x 100 mg) PO BEDTIME 30 days folic acid 1 mg PO DAILY furosemide (Lasix) 20 mg PO QAM lubiprostone 8 mcg PO BID 30 days methylcellulose (laxative) (Citrucel) 500 mg PO BID 30 days metoprolol tartrate 12.5 mg PO BID omeprazole 40 mg PO BID PRN polyethylene glycol 3350 (Miralax) 17 grams PO BID 60 days rosuvastatin 10 mg PO QAM simethicone (Gas-X Extra Strength) 125 mg PO BEDTIME PRN 30 days solifenacin (Vesicare) 10 mg PO DAILY theophylline ER 400 mg PO QAM tiotropium-olodaterol 2.5-2.5 mcg/actuation (Stiolto Respimat) 2 puffs PO DAILY verapamil ER 120 mg PO QPM HPI Comments Details: Cherri has been sent for evaluation. Known to have COPD and she is still smokes. There is history of carotid stenosis apparently but unclear details. She continues to feel short of breath with activity. She also gets episodes of chest discomfort different 10 for she feels like a pressure. Can happen with or without activity. However, no prior coronary disease or myocardial infarction. She is accompanied by her endless steamer tender today. [facility] Medical History Delayed gastric emptying Hypercalcemia Tearfulness Rhinosinusitis Essential (primary) hypertension Anorexia nervosa, restricting type Blindness of left eye Thoracic back pain Uterine leiomyoma Vitamin D deficiency Visual impairment Stress incontinence of urine Chronic kidney disease, stage 3a Former smoker Rib lesion Recurrent acute sinusitis Raised TSH level Pure hypercholesterolemia Mixed hyperlipidemia Postural dizziness Opioid dependence Muscle pain Multiple joint pain Moderate persistent asthma without complication Lumbar radiculopathy Chronic rhinitis Hepatitis C Blood in urine Asthenia COVID-19 vaccine series completed Bipolar disorder Chronic pain syndrome Disc degeneration, lumbar Spondylosis 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 Chronic constipation Deviated septum Emphysema lung Adenomatous colon polyp Acid reflux Surgical History History of tympanoplasty S/P surgery on nasal septum History of bunionectomy History of tubal ligation History of esophagogastroduodenoscopy (EGD) Hx of colonoscopy Family History Father Brain cancer Mother Ovarian cancer Breast cancer Cervical cancer Social History Household Members: Children Alcohol intake: never Patient Tobacco Use Status: Former Tobacco user Tobacco use type: Cigarette Current occupational status: unemployed Review of Systems Const Reports headache(s) and Denies weakness ENT Reports dizziness and Reports headache(s) Card Reports chest pain, Denies chest pain with activity, Denies syncope, Denies rapid heart rate, Denies pedal edema, Denies edema, Denies leg edema, Denies lightheadedness, Denies palpitations, Reports dyspnea, Denies dyspnea on exertion and Denies orthopnea Resp Denies cough, Reports dyspnea and Denies dyspnea on exertion GI Denies hematochezia and Denies change in stool character Musc Denies abnormal gait, Denies muscle cramps, Denies muscle weakness, Denies numbness, Denies radiating pain into limb and Denies tingling Neuro Denies abnormal gait, Reports dizziness, Denies syncope, Reports headache(s), Denies numbness, Denies tingling and Denies weakness Endo Denies palpitations Physical Exam Vital Signs: Last Vital Signs Pulse 87 12/10/24 13:13 BP 110/68 12/10/24 13:13 BMI result Body Mass Index 29.7 Const General: comfortable and no acute distress Orientation/consciousness: patient oriented x3 HEENT Other: Unremarkable Head: Yes normal to inspection Neck Neck: Yes normal visual inspection Chest Chest palpation & inspection: normal inspection of the chest Resp Auscultation: clear to auscultation bilaterally Cardio Palpation: normal PMI Heart sounds: S1 normal heart sound present, S2 normal heart sound present, no gallops, no murmurs and no rubs GI Palpation (GI): Soft to palpation Back/Spine/Pelvis Other: unremarkable Skin General skin exam: no rashes or lesions noted Neuro General: patient oriented x3 Extrem General: Yes normal to inspection Psych Mental Status: mental status grossly normal Office Procedures EKG Details: EKG with underlying sinus rhythm at 87/Min; no significant ST-T changes and otherwise unremarkable[place] [address]-Ctpsrevpdcftaslkp, Complete Assessment & Plan Assessment & Plan (1) Precordial chest pain: Code(s): R07.2 - Precordial pain Category: Medical Plan: Recent echocardiogram with LVEF of 55-60%. No wall motion abnormalities. Normal diastolic function. Otherwise unremarkable. Chest pain could be related to smoking/COPD. We will exclude any cardiac etiology due to comorbidities. Obtain coronary CTA. She has many listed allergies but states that she has had IV contrast with no issues. (2) Carotid artery stenosis: Code(s): I65.29 - Occlusion and stenosis of unspecified carotid artery Category: Medical Plan: Vague history of carotid stenosis but no objective data. Check carotid ultrasound. Orders: Orders CT Cardiac Coronary Angio Today I25.10 - Atherosclerotic heart disease of [place] coronary artery without angina pectoris, R07.2 - Precordial pain US carotid duplex BI Today I65.23 - Occlusion and stenosis of bilateral carotid arteries Patient Instructions: - Schedule and complete the coronary CT scan. - Schedule and complete the carotid artery ultrasound. - Monitor symptoms and report any new or worsening issues. - Consider reducing smoking as much as possible for cardiovascular health. - Follow up regularly with your healthcare provider to monitor your symptoms and treatment plan. Coding Level of Care Code New Pt Level 4 (36507) Complex EM visit Add On G2211 Diagnoses Precordial chest pain R07.2 Carotid artery stenosis I65.29 CPT Codes EKG - CPT: 28720-Kaawbbnqlumwsnnok, Complete ([id number])
[2024-12-10 13:13] VITALS: BP 110/68; PULSE 87; BMI 29.7
--- OUTSIDE RECORDS SUMMARY | 2024-12-10 15:31 | XMS_ITS | Encounter Summary ---
Author Organization [employer] Address [address] [place] [address] 7 [place] [address] Care Team Providers Care Academic Advisor Name Role Phone Ju Khan Primary Care Provider [phone] Jennifer Sultana NP Primary Care Provider [phone] Reason for Visit * Reason Comments Med Refill Encounter Details Date Type Department Care Team ([facility] Contact Info) Description 05/23/2023 Refill [facility] [address] [place], [place] [phone] Ju Khan ANP [address] [place], [place] [phone] Multiple joint pain Social History Tobacco Use [...] Upcoming Encounters Date Type Department Care Team ([facility] Contact Info) Description 12/23/2024 1:00 PM EDT Procedure Visit [facility] [address] [place] [phone] Jennifer Sultana NP [address] [place] [address] documented as of this encounter Visit Diagnoses Diagnosis Multiple joint pain Pain in joint, multiple sites documented in this encounter Additional Health Concerns Assessment Noted Time PHQ-9 Depression Total Score: 9 12/01/19 23 10:12 AM EDT documented as of this encounter Care Teams Academic Advisor Relationship Specialty Start Date End Date Ju Khan ANP [address] [place] [address] PCP - General Family Medicine 03/20/22 07/27/24 Jennifer Sultana NP [address] [place] [address] PCP - General Family Medicine 07/28/24 Juanito Srinivasan Passenger Service Representative 05/10/23 Francisco J Palomino Passenger Service RepresentativeSoftware Configuration Engineer 05/16/23 Fawad Vargas Passenger Service RepresentativeSoftware Configuration Engineer 08/11/24 documented as of this encounter
--- OUTSIDE RECORDS SUMMARY | 2024-12-10 15:31 | XMS_ITS | Encounter Summary ---
Author Organization [employer] Address [address] [facility] 7t [place] [address] Care Team Providers Care Press Tender Smoke Signal Name Role Phone Ju Khan Primary Care Provider [phone] Jennifer Sultana NP Primary Care Provider [phone] Reason for Visit * Reason Onset Date Comments PT1 06/15/2023 Encounter Details Date Type Department Care Team ([facility] Contact Info) Description 06/15/2023 Telephone [facility] MEDICINE [address] [place], [place] [phone] Ju Khan ANP [address] [place], [place] [phone] PT1 Social History Tobacco Use Types Packs/Day [...] 06/27/2023 Time: 2:45 Visits: 2 monthly Address: [address] [place] [address] [address]: [facility] Wheel Chair: no/cane Keel Press Operator Needed: no & Date: 07/17/2023 Time: 2:00 Visits: 3 monthly Address: [address] [place] [address] Facility: [facility]ovascular [facility] Wheel Chair: no/cane Keel Press Operator Needed: no documented in this encounter Plan of Treatment Upcoming Encounters Date Type Department Care Team ([facility] st Contact Info) Description 12/23/2024 1:00 PM EDT Procedure Visit [facility] MEDICINE [address] [place] [address] Jennifer Sultana NP [address] [place] [address] documented as of this encounter Visit Diagnoses Not on filedocumented in this encounter Additional Health Concerns Assessment Noted Time PHQ-9 Depression Total Score: 9 12/01/19 23 10:12 AM EDT documented as of this encounter Care Teams Press Tender Smoke Signal Relationship Specialty Start Date End Date Ju Khan ANP [address] [place] [address] PCP - General Family Medicine 03/20/22 07/27/24 Jennifer Sultana NP [address] [place] [address] PCP - General Family Medicine 07/28/24 Juanito Srinivasan Assistant Professor Surgical Technology 05/10/23 Francisco J Palomino Assistant Professor Surgical TechnologyMeat Pumper 05/16/23 Fawad Vargas Assistant Professor Surgical TechnologyMeat Pumper 08/11/24 documented as of this encounter
--- OUTSIDE RECORDS SUMMARY | 2024-12-10 15:31 | XMS_ITS | Encounter Summary ---
Author Organization [employer] Address [address] [place] [address] Care Team Providers Care Database Reporting Consultant Name Role Phone Jennifer Sultana NP Primary Care Provider [phone] Encounter Details Date Type Department Care Team ([facility] Contact Info) Description 08/12/2024 Telephone [facility]INE [address] [place], [place] [phone] Jennifer Sultana NP [address] [place] [address] Social History Tobacco Use Types Packs/Day Years [...] Description 12/23/2024 1:00 PM EDT Procedure Visit [facility] [address] [place] [address] Jennifer Sultana NP [address] [place] [address] documented as of this encounter Visit Diagnoses Not on filedocumented in this encounter Additional Health Concerns Assessment Noted Time PHQ-9 Depression Total Score: 27 024 2:31 PM EST documented as of this encounter Care Teams Database Reporting Consultant Relationship Specialty Start Date End Date Jennifer Sultana NP [address] [place] [address] PCP - General Family Medicine 07/28/24 Juanito Srinivasan Heel Turner 05/10/23 Francisco J Palomino Heel TurnerCircuit Walker 05/16/23 Fawad Vargas Heel TurnerCircuit Walker 08/11/24 documented as of this encounter
--- OUTSIDE RECORDS SUMMARY | 2024-12-10 15:31 | XMS_ITS | Encounter Summary ---
Author Organization [employer] Address [address] [facility] 7t [place] [address] Care Team Providers Care Folder Seamer Name Role Phone Ju Khan ANP Primary Care Provider [phone] Jennifer Sultana NP Primary Care Provider Reason for Visit * Reason Onset Date Comments PT1 03/09/2023 Encounter Details Date Type Department Care Team ([facility] Contact Info) Description 03/09/2023 Telephone [facility] MEDICINE [address] [place], [place] [phone] Ju Khan ANP [address] [place], [place] [phone] PT1 Social History Tobacco Use Types Packs/Day [...] PM EDT PT1 initiated for [facility] in [facility] will send pt a letter with instructions * Telephone Encounter - Lupis Jerome - 03/09/2023 1:13 PM EDT Tc from pt requesting a PT1 PT1 Date: TBD Time: TBD Address: [address] [place] [address] Specialty: radiculopathy Facility: [facility] Data Processing Consultant: no Wheelchair: no, cane documented in this encounter Plan of Treatment Upcoming Encounters Date Type Department Care Team (Late st Contact Info) Description 12/23/2024 1:00 PM EDT Procedure Visit [facility] MEDICINE [address] [place] [address] Jennifer Sultana, [place] [address] [place] [address] documented as of this encounter Visit Diagnoses Not on filedocumented in this encounter Additional Health Concerns Assessment Noted Time PHQ-9 Depression Total Score: 9 12/01/19 23 10:12 AM EDT documented as of this encounter Care Teams Folder Seamer Relationship Specialty Start Date End Date Ju Khan ANP [address] [place] [address] PCP - General Family Medicine 03/20/22 07/27/24 Jennifer Sultana NP [address] [place] [address] PCP - General Family Medicine 07/28/24 Juanito Srinivasan Fire Code Inspector 05/10/23 Francisco J Palomino Fire Code InspectorTitle Coordinator 05/16/23 Fawad Vargas Fire Code InspectorTitle Coordinator 08/11/24 documented as of this encounter
--- OUTSIDE RECORDS SUMMARY | 2024-12-10 15:31 | XMS_ITS | Encounter Summary ---
Author Organization [employer] Address [address] [facility] 7t [place] [address] Care Team Providers Care Gang Bore Operator Name Role Phone Ju Khan Primary Care Provider [phone] Jennifer Sultana NP Primary Care Provider [phone] Reason for Visit * Reason Onset Date Comments Referral 06/19/2023 Encounter Details Date Type Department Care Team ([facility] Contact Info) Description 06/19/2023 Telephone [facility] MEDICINE [address] [place], [place] [phone] Ju Khan ANP [address] [place], [place] [phone] Referral Social History Tobacco Use Types Packs/Day [...] from pt requesting a new location for form setter metal road forms referral. Any questions, contact pt at [phone] documented in this encounter Plan of Treatment Upcoming Encounters Date Type Department Care Team (Late st Contact Info) Description 12/23/2024 1:00 PM EDT Procedure Visit [facility] MEDICINE [address] [place] [address] Jennifer Sultana NP [address] [place] [address] documented as of this encounter Visit Diagnoses Not on filedocumented in this encounter Additional Health Concerns Assessment Noted Time PHQ-9 Depression Total Score: 9 12/01/19 23 10:12 AM EDT documented as of this encounter Care Teams Gang Bore Operator Relationship Specialty Start Date End Date Ju Khan ANP [address] [place] [address] PCP - General Family Medicine 03/20/22 07/27/24 Jennifer Sultana NP [address] [place] [address] PCP - General Family Medicine 07/28/24 Juanito Srinivasan Hydrographer 05/10/23 Francisco J Palomino HydrographerAviation Maintenance Instructor 05/16/23 Fawad Vargas HydrographerAviation Maintenance Instructor 08/11/24 documented as of this encounter
--- OUTSIDE RECORDS SUMMARY | 2024-12-10 15:31 | XMS_ITS | Encounter Summary ---
Author Organization [employer] Address 75 [facility] 7t [place] [address] Care Team Providers Care Construction Plumber Name Role Phone Ju Khan Primary Care Provider [phone] Jennifer Sultana NP Primary Care Provider [phone] Reason for Visit * Reason Onset Date Comments PT1 02/06/2024 Encounter Details Date Type Department Care Team ([facility] Contact Info) Description 02/06/2024 Telephone [facility] MEDICINE [address] [place], [place] [phone] Ju Khan ANP [address] [place], [place] [phone] PT1 Social History Tobacco Use Types Packs/Day [...] Y/N: Yes Provider name or facility name: [facility] Facility Address: [address] [place] [address] Escort needed: Y/N: Yes Do you have [...] 12/23/2024 1:00 PM EDT Procedure Visit [facility] MEDICINE [address] [place] [address] Jennifer Sultana NP 230 [place] [address] documented as of this encounter Visit Diagnoses Not on filedocumented in this encounter Additional Health Concerns Assessment Noted Time PHQ-9 Depression Total Score: 9 12/01/19 23 10:12 AM EDT documented as of this encounter Care Teams Construction Plumber Relationship Specialty Start Date End Date Ju Khan ANP [address] [place] [address] PCP - General Family Medicine 03/20/22 07/27/24 Jennifer Sultana NP 230 [place] [address] PCP - General Family Medicine 07/28/24 Juanito Srinivasan Physician Practice Manager 05/10/23 Francisco J Palomino Physician Practice ManagerFood And Beverage Attendant 05/16/23 Fawad Vargas Physician Practice ManagerFood And Beverage Attendant 08/11/24 documented as of this encounter
--- OUTSIDE RECORDS SUMMARY | 2024-12-10 15:31 | XMS_ITS | Encounter Summary ---
Author Organization [employer] Address 75 [facility] 7t [place] [address] Care Team Providers Care System Support Analyst Name Role Phone Jennifer Sultana NP Primary Care Provider [phone] Reason for Visit * Reason Onset Date Comments Reschedule 08/22/2024 Encounter Details Date Type Department Care Team ([facility] Contact Info) Description 08/22/2024 Telephone [facility] MEDICINE [address] [place] [address] Jennifer Sultana NP 230 [place] [address] Reschedule Social History Tobacco Use Types Packs/Day [...] 12/23/2024 1:00 PM EDT Procedure Visit [facility] MEDICINE [address] [place] [address] Jennifer Sultana NP [address] [place] [address] documented as of this encounter Visit Diagnoses Not on filedocumented in this encounter Additional Health Concerns Assessment Noted Time PHQ-9 Depression Total Score: 27 024 2:31 PM EST documented as of this encounter Care Teams System Support Analyst Relationship Specialty Start Date End Date Jennifer Sultana NP 230 [place] [address] PCP - General Family Medicine 07/28/24 Juanito Srinivasan Cook House Supervisor 05/10/23 Francisco J Palomino Cook House SupervisorBulk Receiver 05/16/23 Fawad Vargas Cook House SupervisorBulk Receiver 08/11/24 documented as of this encounter
--- OUTSIDE RECORDS SUMMARY | 2024-12-10 15:31 | XMS_ITS | Encounter Summary ---
Author Organization [employer] Address [address] [facility] [address] 7t [place] [address] Care Team Providers Care Deckhand Oyster Dredge Name Role Phone Ju Khan Primary Care Provider [phone] Jennifer Sultana NP Primary Care Provider [phone] Reason for Visit * Reason Onset Date Comments PT-1 02/25/2024 Encounter Details Date Type Department Care Team ([facility] Contact Info) Description 02/25/2024 Telephone [facility] MEDICINE 230 [place], [place] [phone] Ju Khan ANP 230 [place], [place] [phone] PT-1 Social History Tobacco Use Types Packs/Day [...] Y/N: Yes Provider name or facility name: [facility] Facility Address: [address] [place] [address] Escort needed: Y/N: No Do you have a wheelchair: Y/N: No If yes- Manual or electric: n/a Visits: 1x per week documented in this encounter Plan of Treatment Upcoming Encounters Date Type Department Care Team ([facility] Contact Info) Description 12/23/2024 1:00 PM EDT Procedure Visit [facility] MEDICINE [address] [place] [address] Jennifer Sultana NP 230 [place] [address] documented as of this encounter Visit Diagnoses Not on filedocumented in this encounter Additional Health Concerns Assessment Noted Time PHQ-9 Depression Total Score: 9 12/01/19 23 10:12 AM EDT documented as of this encounter Care Teams Deckhand Oyster Dredge Relationship Specialty Start Date End Date Ju Khan ANP 230 [place] [address] PCP - General Family Medicine 03/20/22 07/27/24 Jennifer Sultana NP 230 [place] [address] PCP - General Family Medicine 07/28/24 Juanito Srinivasan Planner/Scheduler 05/10/23 Francisco J Palomino Planner/SchedulerIce Hockey Coach 05/16/23 Fawad Vargas Planner/SchedulerIce Hockey Coach 08/11/24 documented as of this encounter
--- OUTSIDE RECORDS SUMMARY | 2024-12-10 15:31 | XMS_ITS | Encounter Summary ---
Author Organization [employer] Address 75 [facility] 7t [place] [address] Care Team Providers Care Marketing Sales Manager Name Role Phone Ju Khan Primary Care Provider Jennifer Sultana NP Primary Care Provider [phone] Reason for Visit * Reason Onset Date Comments Med Refill 03/22/2023 Encounter Details Date Type Department Care Team ([facility] st Contact Info) Description 03/22/2023 Telephone [facility] MEDICINE 230 [place], [place] [phone] Ju Khan ANP 230 [place], [place] [phone] Med Refill Social History Tobacco Use Types [...] 12/23/2024 1:00 PM EDT Procedure Visit [facility] MEDICINE 230 [place] [address] Jennifer Sultana, [place] [address] [place] [address] documented as of this encounter Visit Diagnoses Not on filedocumented in this encounter Additional Health Concerns Assessment Noted Time PHQ-9 Depression Total Score: 9 12/01/19 23 10:12 AM EDT documented as of this encounter Care Teams Marketing Sales Manager Relationship Specialty Start Date End Date Ju Khan ANP 230 [place] [address] PCP - General Family Medicine 03/20/22 07/27/24 Jennifer Sultana NP [address] [place] [address] PCP - General Family Medicine 07/28/24 Juanito Srinivasan Ovens Supervisor 05/10/23 Francisco J Palomino Ovens SupervisorSustainability Coach 05/16/23 Fawad Vargas Ovens SupervisorSustainability Coach 08/11/24 documented as of this encounter
--- OUTSIDE RECORDS SUMMARY | 2024-12-10 15:31 | XMS_ITS | Encounter Summary ---
Author Organization [email or web address] Address 75 [facility] 7t [place] [address] Care Team Providers Care Oxidized Finish Plater Name Role Phone Ju Khan Primary Care Provider [phone] Jennifer Sultana NP Primary Care Provider [phone] Reason for Visit * Reason Onset Date Comments PT1 06/19/2023 Encounter Details Date Type Department Care Team ([facility] Contact Info) Description 06/19/2023 Telephone [facility] MEDICINE 230 [place], [place] [phone] Ju Khan ANP 230 [place], [place] [phone] PT1 Social History Tobacco Use Types Packs/Day [...] / denial letter via mail. PT-1 Request [id number] Authorized - [address] [address] Wrote called and spoke with pt regarding PT1. [facility] GI PT1 is good through October 2023 & [facility] Pulmonology is good through 01/2024. Pt just needed [facility] * Telephone Encounter - Lupis Cano - 06/19/2023 2:15 PM EDT Tc from pt requesting PT1 renewal Date: n/a Time: n/a Visits: n/a Address: [address] [facility] [place] Facility: [facility] pulmonology Wheel Chair: no, cane Estate Planning Director Needed: no Date: 07/04 Time: 12 PM Visits: n/a Address: [address] [place] [address] Willi [place] Facility: [facility] Gastroenterology Wheel Chair: no, cane Estate Planning Director Needed: no documented in this encounter Plan of Treatment Upcoming Encounters Date Type Department Care Team (Late st Contact Info) Description 12/23/2024 1:00 PM EDT Procedure Visit [facility] MEDICINE 230 [place] [address] Jennifer Sultana NP 230 [place] [address] documented as of this encounter Visit Diagnoses Not on filedocumented in this encounter Additional Health Concerns Assessment Noted Time PHQ-9 Depression Total Score: 9 12/01/19 23 10:12 AM EDT documented as of this encounter Care Teams Oxidized Finish Plater Relationship Specialty Start Date End Date Ju Khan ANP 230 [place] [address] PCP - General Family Medicine 03/20/22 07/27/24 Jennifer Sultana NP 230 [place] [address] PCP - General Family Medicine 07/28/24 Juanito Srinivasan Supervisory Air Intercept Controller 05/10/23 Francisco J Palomino Supervisory Air Intercept ControllerDatabase Dba 05/16/23 Fawad Vargas Supervisory Air Intercept ControllerDatabase Dba 08/11/24 documented as of this encounter
--- OUTSIDE RECORDS SUMMARY | 2024-12-10 15:31 | XMS_ITS | Encounter Summary ---
Author Organization [employer] Address [address] [place] [address] 7 [place] [address] Care Team Providers Care Model Maker Name Role Phone uJ Khan Primary Care Provider [phone] Jennifer Sultana NP Primary Care Provider [phone] Reason for Referral * Consultation (STAT) - Closed Specialty Diagnoses / Procedures Referred By [facility] Referred To Contact Orthopaedic Surgery Diagnoses Other closed fracture of proximal end of right tibia, initial encounter Fry cyst, right Ju Khan ANP 230 [place] [address] Phone: tel: fax: [facility] [address] [place] [address] Phone: tel: Referral ID Status Reason Start Date Expiration Date V isits Requested Visits Authorized [id number] Closed Specialty Services Required 05/05/2024 05/05/2025 3 3 Reason for Visit * Reason Comments Med Refill Encounter Details Date Type Department Care Team (Late st Contact Info) Description 07/03/2024 Refill [facility] MEDICINE [address] [place] [address] Ju Khan ANP [address] [place], [place] [phone] Other closed fracture of proximal end of [...] Description 12/23/2024 1:00 PM EDT Procedure Visit [facility] MEDICINE [address] [place] [address] Jennifer Sultana NP 230 [place] [address] Scheduled Referrals Name Type Priority Associated Diagnoses [...] documented as of this encounter Care Teams Model Maker Relationship Specialty Start Date End Date Ju Khan ANP [address] [place] [address] PCP - General Family Medicine 03/20/22 07/27/24 Jennifer Sultana NP 230 [place] [address] PCP - General Family Medicine 07/28/24 Juanito Srinivasan Multi Punch Operator 05/10/23 Francisco J Palomino Multi Punch OperatorTiler 05/16/23 Fawad Vargas Multi Punch OperatorTiler 08/11/24 documented as of this encounter
--- OUTSIDE RECORDS SUMMARY | 2024-12-10 15:31 | XMS_ITS | Encounter Summary ---
Demographics Address [address] [facility] [address] [place] [address] Mobile Phone Work Phone Email Address Preferred Language en Marital Status Adventism Affiliation Unknown Race White Ethnic Group Unknown Author Organization [employer] Address 75 [facility] 7t [place] [address] Care Team Providers Care Vegetables Cook Name Role Phone Jennifer Sultana NP Primary Care Provider [phone] Reason for Visit * Reason Comments Med Refill Encounter Details Date Type Department Care Team ([facility] Contact Info) Description 08/10/2024 Refill [facility] MEDICINE 230 [place], [place] [phone] Ju Khan, ANP 230 [place] [address] Spondylosis 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 Social [...] 12/23/2024 1:00 PM EDT Procedure Visit [facility] MEDICINE 230 [place] [address] Jennifer Sultana NP 230 [place] [address] documented as of this encounter Visit Diagnoses Diagnosis Spondylosis 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 documented in this encounter Additional Health Concerns Assessment Noted Time PHQ-9 Depression Total Score: 27 024 2:31 PM EST documented as of this encounter Care Teams Vegetables Cook Relationship Specialty Start Date End Date Jennifer Sultana NP 230 [place] [address] PCP - General Family Medicine 07/28/24 Juanito Srinivasan Bell Ringer 05/10/23 Francisco J Palomino Bell RingerPlastic Eye Technician 05/16/23 Fawad Vargas Bell RingerPlastic Eye Technician 08/11/24 documented as of this encounter
--- OUTSIDE RECORDS SUMMARY | 2024-12-10 15:31 | XMS_ITS | Encounter Summary ---
Author Organization [employer] Address 75 [facility] 7t [place] [address] Care Team Providers Care Chief Medical Director Name Role Phone Ju Khan Primary Care Provider [phone] Jennifer Sultana NP Primary Care Provider [phone] Reason for Visit * Reason Comments Med Refill Encounter Details Date Type Department Care Team ([facility] Contact Info) Description 07/15/2024 Refill [facility] MEDICINE 230 [place], [place] [phone] Ju Khan ANP 230 [place] [address] Multiple joint pain Social History Tobacco Use [...] Description 12/23/2024 1:00 PM EDT Procedure Visit [facility] MEDICINE [address] [place] [address] Jennifer Sultana NP 230 [place] [address] documented as of this encounter Visit Diagnoses Diagnosis Multiple joint pain Pain in joint, multiple sites documented in this encounter Additional Health Concerns Assessment Noted Time PHQ-9 Depression Total Score: 3 04/04/20 24 1:48 PM EDT documented as of this encounter Care Teams Chief Medical Director Relationship Specialty Start Date End Date Ju Khan ANP [address] [place] [address] PCP - General Family Medicine 03/20/22 07/27/24 Jennifer Sultana NP [address] [place] [address] PCP - General Family Medicine 07/28/24 Juanito Srinivasan Blanker Press Operator 05/10/23 Francisco J Palomino Blanker Press OperatorIroner Hand 05/16/23 Fawad Vargas Blanker Press OperatorIroner Hand 08/11/24 documented as of this encounter
--- OUTSIDE RECORDS SUMMARY | 2024-12-10 15:31 | XMS_ITS | Encounter Summary ---
Author Organization [employer] Address [address] [facility] 7t [place] [address] Care Team Providers Care Pipe Bowls Paint Trimmer Name Role Phone Ju Khan Primary Care Provider [phone] Jennifer Sultana NP Primary Care Provider [phone] Reason for Visit * Reason Onset Date Comments PT-1 06/11/2024 Encounter Details Date Type Department Care Team ([facility] Contact Info) Description 06/11/2024 Telephone [facility] MEDICINE 230 [place], [place] [phone] Ju Khan ANP 230 [place], [place] [phone] PT-1 Social History Tobacco Use Types Packs/Day [...] Y/N: Yes Provider name or facility name: [facility] Allergy (Dr. Philippe Evans) Facility Address: [address] [place] [address] Escort needed: Y/N: Yes Do you have a wheelchair: Y/N: No If yes- Manual or electric: (Uses walker and cane) Visits: 3 times a month - Patient calling requesting PT1 Home Address verified: Y/N: Yes Provider name or facility name: [facility] Facility Address: [address] [place] [address] Escort needed: Y/N: Yes Do you have a wheelchair: Y/N: No If yes- Manual or electric: Walker and Cane Visits: 4 a month - Patient calling requesting PT1 Home Address verified: Y/N: Yes Provider name or facility name: Ramez John MD Facility Address: [address] [place] [address] Escort needed: Y/N: Yes Do you have a wheelchair: Y/N: No If yes- Manual or electric: Walker and cane Visits: 3 monthly documented in this encounter Plan of Treatment Upcoming Encounters Date Type Department Care Team (Late st Contact Info) Description 12/23/2024 1:00 PM EDT Procedure Visit [facility] MEDICINE [address] [place] [address] Jennifer Sultana, [place] 230 [place] [address] documented as of this encounter Visit Diagnoses Not on filedocumented in this encounter Additional Health Concerns Assessment Noted Time PHQ-9 Depression Total Score: 3 04/04/20 1:48 PM EDT documented as of this encounter Care Teams Pipe Bowls Paint Trimmer Relationship Specialty Start Date End Date Ju Khan ANP [address] [place] [phone] PCP - General Family Medicine 03/20/22 07/27/24 Jennifer Sultana NP 230 [place] [address] PCP - General Family Medicine 07/28/24 Juanito Srinivasan Events Associate 05/10/23 Francisco J Palomino Events AssociateIndustrial Spraypainter 05/16/23 Fawad Vargas Events AssociateIndustrial Spraypainter 08/11/24 documented as of this encounter
--- OUTSIDE RECORDS SUMMARY | 2024-12-10 15:31 | XMS_ITS | Encounter Summary ---
Author Organization [employer] Address 75 [facility] 7t [place] [address] Care Team Providers Care Aerospace Manager Name Role Phone Ju Khan Primary Care Provider [phone] Jennifer Sultana NP Primary Care Provider [phone] Reason for Visit * Reason Onset Date Comments PT1 06/18/2023 Encounter Details Date Type Department Care Team ([facility] Contact Info) Description 06/18/2023 Telephone [facility] MEDICINE 230 [place], [place] [phone] Ju Khan ANP 230 [place], [place] [phone] PT1 Social History Tobacco Use Types Packs/Day [...] 2:19 PM EDT PT1 Name of facility: [facility] Specialty: Follow up with PCP Location: [address] [place] [address] Date: 07/02/2023 Time: 3:00 pm fax: [phone] wheelchair: NO Warehouse Guard: NO Visits: Pt states for all future appts documented in this encounter Plan of Treatment Upcoming Encounters Date Type Department Care Team ([facility] st Contact Info) Description 12/23/2024 1:00 PM EDT Procedure Visit [facility] MEDICINE [address] [place] [address] Jennifer Sultana NP 230 [place] [address] documented as of this encounter Visit Diagnoses Not on filedocumented in this encounter Additional Health Concerns Assessment Noted Time PHQ-9 Depression Total Score: 9 12/01/19 10:12 AM EDT documented as of this encounter Care Teams Aerospace Manager Relationship Specialty Start Date End Date Ju Khan ANP 230 [place] [address] PCP - General Family Medicine 03/20/22 07/27/24 Jennifer Sultana NP 230 [place] [address] PCP - General Family Medicine 07/28/24 Juanito Srinivasan Temperature Regulator 05/10/23 Francisco J Palomino Temperature RegulatorChild Care Center Administrator 05/16/23 Fawad Vargas Temperature RegulatorChild Care Center Administrator 08/11/24 documented as of this encounter
--- OUTSIDE RECORDS SUMMARY | 2024-12-10 15:31 | XMS_ITS | Clinical Summary ---
Author Organization [facility] Address [address] [place] [address] Phone Care Team Providers Care Mobile Application Engineer Name Role Phone Jennifer Sultana GRADER MEAT Primary Care Provider [phone] Allergies Active Allergy Reactions Criticality Noted Date Comments Amoxicillin 09/30/2024 Aspirin 09/30/2024 Sulfamethoxazole-Trimethoprim 2024 Citalopram 09/30/2024 Codeine 09/30/2024 Haloperidol 09/30/2024 Lamotrigine 09/30/2024 Morphine 09/30/2024 Penicillins 09/30/2024 Sulfa (Sulfonamide Antibiotics) 11/2024 Medications ammonium lactate (AmLactin) 12 % lotionIndicatio ns:Xerosis cutis Apply topically 2 (two) times a day. Apply to feet daily where socks at night 140 g 3 5 12/05/19 26 Active ammonium lactate (AmLactin) 12 % lotion Apply topically if needed for dry skin. 400 g 2 5 12/05/19 25 Discontinu ed(Reorder ) Encounters Date Type Department Care Team Description 12/02/2024 1:15 PM EDT Office Visit [facility] [address] [address] Artie Goodrich DPM Pain in both feet (Primary Dx); Arthritis of both feet; PAD (peripheral artery disease) (CMS/HCC V24); Hammertoes of both feet; Xerosis cutis; Dermatophytosis, nail 09/30/2024 1:15 PM EST Consult Orthopedic [facility] [address] [address] Artie Goodrich DPM Pain in both feet (Primary Dx); Arthritis [...] - - Weight 84.4 kg (186 lb) 12/02/2024 1:46 PM EDT Height 165.1 cm (5' 5 ) 12/02/2024 1:46 PM EDT Body Mass Index 30.95 12/02/2024 1:46 PM EDT Plan of Treatment Upcoming Encounters Date Type Department Care Team (Late st Contact Info) Description 02/03/2025 2:15 PM EDT Office Visit Orthopedic Surgery - [place] [address] [address] Artie Goodrich DPM [address] [address] Health Maintenance Due Date Last Done Comments Breast Cancer Screening 1965 Hepatitis A Vaccines (1 of 2 - Risk 2-dose series) 1986 Hepatitis B Vaccines (1 of 3 - 19+ 3-dose series) 1986 Cervical Cancer Screening: Pap Smear 02/11/1988 Colorectal Cancer Screening: Colonoscopy 08/19/2024 Hepatitis C Screening 08/19/2024 Social Influencers of Health Screening 08/19/2024 Depression Screening 07/28/2025 07/28/2024 Hypertension/CHF/CAD Annual BMP Blood Test 10/22/2025 10/22/2024 DTaP,Tdap,and Td Vaccines (3 - Td or [...] age to complete this topic Meningococcal B Vaccine Aged Out No l onger eligible based on patient's age to complete this topic RSV Immunization Patients Under 20 months Aged Out No longer eligible based on patient's age to complete this topic Varicella Vaccines Aged Out No longer eligible based on patient's age to complete this topic Insurance MEDICAID - [place] Care Teams Mobile Application Engineer Relationship Specialty Start Date End Date Jennifer Sultana FNP [address] [place] [address] PCP - General Nurse Practitioner 08/18/24
--- OUTSIDE RECORDS SUMMARY | 2024-12-10 15:32 | XMS_ITS | Encounter Summary ---
Author Organization [employer] Address [address] [facility] [address] 7t [place] [address] Care Team Providers Care Yarn Dry Room Worker Name Role Phone Ju Khan ANP Primary Care Provider [phone] Jennifer Sultana NP Primary Care Provider Reason for Visit * Reason Comments Med Refill Encounter Details Date Type Department Care Team ([facility] st Contact Info) Description 11/07/2023 Refill [facility] MEDICINE 230 [place] [address] Ju Khan ANP 230 [place] [address] Spondylosis 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 Social [...] Description 12/23/2024 1:00 PM EDT Procedure Visit [facility] MEDICINE 230 [place] [address] Jennifer Sultana NP 230 [place] [address] documented as of this encounter Visit Diagnoses Diagnosis Spondylosis 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 documented in this encounter Additional Health Concerns Assessment Noted Time PHQ-9 Depression Total Score: 9 12/01/19 23 10:12 AM EDT documented as of this encounter Care Teams Yarn Dry Room Worker Relationship Specialty Start Date End Date Ju Khan ANP [address] [place] [address] PCP - General Family Medicine 03/20/22 07/27/24 Jennifer Sultana NP [address] [place] [address] PCP - General Family Medicine 07/28/24 Juanito Srinivasan Dull Coat Mill Operator 05/10/23 Francisco J Palomino Dull Coat Mill OperatorExceptional Needs Teacher 05/16/23 Fawad Vargas Dull Coat Mill OperatorExceptional Needs Teacher 08/11/24 documented as of this encounter
--- OUTSIDE RECORDS SUMMARY | 2024-12-10 15:32 | XMS_ITS | Clinical Summary ---
Author Organization [employer] Address [address] [place] [address] [address] [place] [address] Care Team Providers Care Supervisor [employer] Name Role Phone Jennifer Sultana NP Primary Care Provider [phone] Allergies Active Allergy Reactions Criticality Noted Date [...] 1 TABLET BY MOUTH EVERY MORNING Active ziprasidone (Geodon) 80 MG capsule TAKE [...] FOR PAIN 30 tablet 1 024 Active docusate sodium (Colace) 100 MG capsule [...] EACH NOSTRIL IN THE MORNING 48 g 024 Active folic acid (Folvite) 1 MG tablet TAKE 1 TABLET BY MOUTH EVERY MORNING 90 tablet 1 024 Active rosuvastatin (Crestor) 10 MG tabletIndications :Mixed [...] AT BEDTIME FOR CONSTIPATION 180 tablet 1 024 Active famotidine (Pepcid) 20 MG tabletIndications :Stage 3a chronic kidney disease (CMS/HCC) Take 1 tablet (20 mg) by mouth Once per day. 30 tablet 11 024 2024 Active metoprolol tartrate (Lopressor) 25 MG tablet TAKE 1/2 TABLET BY MOUTH TWICE DAILY IN THE MORNING AND EVENING 90 tablet 3 024 Active pantoprazole (Protonix) 40 MG EC tabletIndications :Gastroesophageal reflux disease, unspecified whether esophagitis present TAKE 1 TABLET BY MOUTH BEFORE BREAKFAST. DO NOT CRUSH, CHEW OR SPLIT. 90 tablet 1 025 Active pregabalin (Lyrica) 75 MG capsuleIndication s:Spondylosis 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 TAKE 1 CAPSULE BY MOUTH THREE TIMES DAILY IN THE MORNING, EVENING, AND BEDTIME 90 capsule 2 025 Active verapamil ER (Verelan) 120 MG 24 hr capsule TAKE 1 CAPSULE BY MOUTH EVERY EVENING 90 capsule 025 Active verapamil ER (Verelan) 120 MG 24 hr capsule TAKE 1 CAPSULE BY MOUTH EVERY EVENING 022 2024 Discontinued(R eorder (will not trigger notification to Pharmacy)) polycarbophil (FiberCon) 625 MG tablet Take 1 tablet (625 mg) by mouth in the morning. 90 tablet 3 024 2024 pregabalin (Lyrica) 75 MG capsuleIndication s:Spondylosis 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 TAKE 1 CAPSULE BY MOUTH THREE TIMES DAILY IN THE MORNING, EVENING, AND BEDTIME 90 capsule 2 024 2024 Discontinued Active Problems Problem Noted Date Diagnosed Date [...] Type Department Care Team Description 11/26/2024 Refill [facility] [address] [place] [address] Jennifer Sultana NP Spondylosis 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 11/07/2024 Population Health Risk Score Community [facility] ([facility]) Department [address] [address] Provider, Population Health Generic 10/29/[address] [address] Jennifer Sultana NP Patient survey 10/28/[address] [address] Jennifer Sultana NP Gastroesophageal reflux disease, unspecified whether esophagitis present 10/22/2024 Orders Only GENERIC EXTERNAL DATA DEPARTMENT Provider, Generic External Data 10/07/2024 Travel 10/06/[address] [address] Peyton Roe [place] Chart Prep 09/23/2024 Orders Only [address] [address] Jennifer Sultana NP Stage 3a chronic kidney disease (CMS/HCC) (Primary Dx) 09/23/2024 Orders Only [address] [address] Jennifer Sultana NP Stage 3a chronic kidney disease (CMS/HCC) (Primary Dx) 09/18/[address] [address] Peyton Roe [place] Chart Prep 09/18/[address] [address] Jennifer Sultana NP Referral from Last 3 Months Immunizations Name Administration [...] Description 12/23/2024 1:00 PM EDT Procedure Visit [facility] [address] [place], [place] [phone] Jennifer Sultana NP [address] [place], [place] [phone] Health Maintenance Due Date Last Done Comments CT Colonography 1965 FIT DNA/Cologuard 1967 FIT 1967 FOBT 1965 Sigmoidoscopy 1965 Hepatitis A Vaccines (1 of 2 - Risk 2-dose series) 1986 Hepatitis B Vaccines (1 of 3 - 19+ 3-dose series) 1986 Pap Smear 02/11/1988 Colonoscopy 04/12/2021 04/12/2018 Colorectal Cancer Screening 04/12/2021 Cervical Cancer Screening 10/25/2021 HPV/Cotest 10/25/2021 10/25/2016 Depression Monitoring 01/26/2025 07/28/2024, 024 SDOH Screening 03/21/2025 03/21/2024 Mammogram 06/30/2025 06/30/2024, 05/28, 04/04/2023, Additional history exists Alcohol/Substance Use Screening 07/28/2025 07/28/2024 Depression Screening 07/28/2025 07/28/2024, 07/28/20 24 Tobacco Screening 08/17/2025 08/17/2024 DTaP/Tdap/Td Vaccines (2 - Td or Tdap) 10/25/2026 10/25/2016, 03/04/2010 Lipid Panel 05/02/2029 05/02/2024, 03/2023, 05/08/2022, Additional history exists RSV Patients and [...] Routine 10/22/2024 3:49 PM EST Essential hypertension BI MAMMOGRAM SCREENING TOMOSYNTHESIS BILATERAL Routine 06/19/2024 [...] (10/22/2024 3:55 PM EST) Proteinase-3 Antibody <1.0 [facility] Comment:Value Interpretation ----- <1.0 No Antibody Detected > or = 1.0 Antibody DetectedAutoantibodies to proteinase-3 (FL-3) are accepted ascharacteristic for granulomatosis with polyangiitis(GPA, Aby's), and are detectable in 95% of thehistologically proven cases. The cytoplasmic IFApattern, (c-ANCA), is based largely on autoantibody toPR-3 which serves as the primary antigen.These autoantibodies are present in active disease.THIS TEST WAS PERFORMED AT:[employer] [place] [phone] NICHOLE MD 10/22/2024 3:55 PM EST 10/22/2024 3:55 PM EST us Generic External Data Provider LAB BLOOD ORDERAB LES Final Result [facility] [address] [place] [phone] * Myeloperoxidase Antibody (MPO) (10/22/2024 3:55 PM EST) Myeloperoxidase Antibody <1.0 AI [facility] Comment:Value Interpretation ----- <1.0 No Antibody Detected > or = 1.0 Antibody DetectedAutoantibodies to myeloperoxidase (MPO) are commonlyassociated with the following small-vesselvasculitides: microscopic polyangiitis,polyarteritis nodosa, Churg-Joselito syndrome,necrotizing and crescentic glomerulonephritis andoccasionally granulomatosis with polyangiitis(GPA, Aby's). The perinuclear IFA pattern,(p-ANCA) is based largely on autoantibody tomyeloperoxidase which serves as the primary antigen.These autoantibodies are present in active disease.THIS TEST WAS PERFORMED AT:[facility] [place] [phone] NICHOLE MD 10/22/2024 3:55 PM EST 10/22/2024 3:55 PM EST us Generic External Data Provider LAB BLOOD ORDERAB LES Final Result [facility] [address] [place] [phone] * (ABNORMAL) Vitamin D, 25-Hydroxy, Total, Immunoassay (10/22/2024 3:55 PM EST) Vitamin D 25-OH Total 21.7(L) >30 ng/mL [facility] Comment:Health Based Referen ce Values*< 20 ng/mL Trtxemvpo10-79 ng/mL Insufficient> 30 ng/mL Sufficient*Micki ALFARO. N [...] ORDERAB LES Final Result Performing Organization Address [facility] Phone Number [facility] [address] [place] [phone] * Phospholipase A2 Receptor (PLA2R) Antibody Panel (10/22/2024 3:55 PM EST) Pathologist [facility] Phospholipase A2 Receptor (PLA2R) Ab, WILLOW <4 RU/mL [facility] Comment:Reference Range: <14 : NEGATIVE 14-19: BORDERLINE >19: POSITIVE Phospholipase A2 Receptor (PLA2R) Ab, IFA NEGATIVE NEGATIVE [facility] Comment:THIS TEST WAS PERFOR MED AT:[employer] [id number] [facility] [place] [address]ONSUEKENNA SZYMANSKI MD,PHD,AFSHAN 10/22/2024 3:55 PM EST 10/22/2024 3:55 PM EST Generic External Data Provider LAB BLOOD ORDERAB LES Final Result Performing Organization Address [facility] Number [facility] [address] [place] [phone] * (ABNORMAL) CBC auto differential (10/22/2024 3:55 PM EST) Only the most recent of2 resultswithin the time period is included. Pathologist [facility] White Blood Count 9.9 4.8 - 10.8 X10*3/uL [facility] Red Blood Count 4.59 4.20 - 5.50 X10*6/uL [facility] Hemoglobin 13.0 12.0 - 16.0 g/dl [facility] Hematocrit 38.3 37.0 - 47.0 % [facility] Mean Corpuscular Volume 83.4 80.0 - 98.0 fL [facility] Mean Corpuscular Hemoglobin 28.3 27.0 - 33.0 pg [facility] Mean Corpuscular HGB Conc 33.9 31.0 - 35.0 g/dl [facility] Red Cell Distribution Width 16.3(H) 11.0 - 16.0 % [facility] Platelet Count 214 160 - 400 X10*3/uL [facility] Mean Platelet Volume 11.4 9.4 - 12.3 fL [facility] Neutrophils Percent Auto 66.6 45 - 73 % [facility] Imm Gran Pct Auto 0.3 0.0 - 0.4 % [facility] Lymphocytes Percent Auto 20.1 20 - 40 % [facility] Monocytes Percent Auto 4.3 2 - 11 % [facility] Eosinophils Percent Auto 8.3(H) 0 - 4 % [facility] Basophils Percent Auto 0.4 0 - 2 % [facility] NRBC Pct Auto 0.0 0.0 - 0.2 /100WBC [facility] Neutrophils Absolute Auto 6.6 2.0 - 8.3 x10*3/uL [facility] Imm Gran Abs Auto 0.03 0.00 - 0.03 X10*3/uL [facility] Lymphocytes Absolute Auto 2.0 1.2 - 4.9 X10*3/uL [facility] Monocytes Absolute Auto 0.4 0.1 - 1.2 X10*3/uL [facility] Eosinophils Absolute Auto 0.8(H) 0.0 - 0.4 X10*3/uL [facility] Basophils Absolute Auto 0.0 0.0 - 0.2 X10*3/uL [facility] NRBC Abs Auto 0.000 0.0 - 0.012 X10*3/uL [facility] 10/22/2024 3:55 PM EST 10/22/2024 3:55 PM EST us Generic External Data Provider LAB BLOOD ORDERAB LES Final Result Performing Organization Address [facility]/ZIP Co de Phone Number [facility] [address] [place] [phone] * Iron And Total Iron Binding Capacity (10/22/2024 3:55 PM EST) Iron 47 30 - 160 mcg/dL [facility] Total Iron Binding Capacity 273 228 - 428 mcg/dL [facility] Percent Iron Saturation 17 15 - 50 % [facility] Unsaturated Iron Binding 226 ug/dL [facility] 10/22/2024 3:55 PM EST 10/22/2024 3:55 PM EST Generic External Data Provider LAB BLOOD ORDERAB LES Final Result Performing Organization Address [facility] Co de Phone Number [facility] [address] [place] [phone] * SCL-70 Antibody (10/22/2024 3:55 PM EST) Pathologist [facility] SCL-70 Antibody <1.0 NEG <1.0 NEG [facility] Comment:THIS TEST WAS PERFOR MED AT:[employer] [place] [id number] NICOHLE MD 10/22/2024 3:55 PM EST 10/22/2024 3:55 PM EST Generic External Data Provider LAB BLOOD ORDERAB LES Final Result Performing Organization Address [facility] Co de Phone Number [facility] [address] [place] [phone] * Glomerular Basement Membrane Antibody (IgG) (10/22/2024 3:55 PM EST) Glomerular Basement Memebrane Antibody (IgG) <1.0 [facility] Comment:Value Interpretation ----- <1.0 No Antibody Detected > or = 1.0 Antibody DetectedTHIS TEST WAS PERFORMED AT:[facility] [address] [phone] INCHOLE MD 10/22/2024 3:55 PM EST 10/22/2024 3:55 PM EST Generic External Data Provider LAB BLOOD ORDERAB LES Final Result Performing Organization Address [facility] Phone Number [facility] [address] [place] [phone] * DNA (ds) Antibody (10/22/2024 3:55 PM EST) Anti DNA DS Antibody <1 IU/mL [facility] Comment:IU/mL Interpretation < or = 4 Negative 5-9 Indeterminate > or = 10 PositiveTHIS TEST WAS PERFORMED AT:[facility] [address] [phone] NICHOLE MD 10/22/2024 3:55 PM EST 10/22/2024 3:55 PM EST Generic External Data Provider LAB BLOOD ORDERAB LES Final Result Performing Organization Address [facility] Phone Number [facility] [address] [place] [phone] * Hepatitis B Core??Antibody (IgM) (10/22/2024 3:55 PM EST) Hepatitis B Core Antibody IgM NON-REACTI VE NON-REACTI VE [facility] Comment:For additional infor mation, please refer tohttp://education.Compario/faq/MMY149(This link is being provided for informational/educational purposes only.)THIS TEST WAS PERFORMED AT:[facility] [address] [id number] NICHOLE MD 10/22/2024 3:55 PM EST 10/22/2024 3:55 PM EST Generic External Data Provider LAB BLOOD ORDERAB LES Final Result Performing Organization Address [facility] Co de Phone Number [facility] [address] [place] [phone] * Hepatitis B surface antigen, EIA (10/22/2024 3:55 PM EST) Hepatitis B Surface Ag Negative Negative [facility] 10/22/2024 3:55 PM EST 10/22/2024 3:55 PM EST Generic External Data Provider LAB BLOOD ORDERAB LES Final Result Performing Organization Address [facility] de Phone Number [facility] [address] [place] [phone] * Hepatitis B Core Antibody, Total (10/22/2024 3:55 PM EST) Hepatitis B Core Antibody Reactive Nonreactive [facility] Comment:Presumptive evidence of anti-HBc. 10/22/2024 3:55 PM EST 10/22/2024 3:55 PM EST Generic External Data Provider LAB BLOOD ORDERAB LES Final Result Performing Organization Address [facility] de Phone Number [facility] [address] [place] [phone] * (ABNORMAL) Immunofixation, Serum (10/22/2024 3:55 PM EST) IMMUNOGLOBULIN G 1707(A) 600 - 1640 mg/dL [facility] IMMUNOGLOBULIN A 543(A) 47 - 310 mg/dL [facility] Immunoglobulin M 45(A) 50 - 300 mg/dL [facility] Comment:THIS TEST WAS PERFOR MED AT:[employer] [place] [phone] NICHOLE MD Immunofixation Result SEE NOTE [facility] Comment:No monoclonal protei ns detected. 10/22/2024 3:55 PM EST 10/22/2024 3:55 PM EST Generic External Data Provider LAB BLOOD ORDERAB LES Final Result Performing Organization Address [facility] Co de Phone Number [facility] [address] [place] [phone] * Complement Component C3c (10/22/2024 3:55 PM EST) Complement C3 169 83 - 193 mg/dL [facility] Comment:THIS TEST WAS PERFOR MED AT:[facility] [place] [phone] NICHOLE MD 10/22/2024 3:55 PM EST 10/22/2024 3:55 PM EST Generic External Data Provider LAB BLOOD ORDERAB LES Final Result Performing Organization Address [facility] Phone Number [facility] [address] [place] [phone] * Complement Component C4c (10/22/2024 3:55 PM EST) Complement C4 27 15 - 57 mg/dL [facility] Comment:THIS TEST WAS PERFOR MED AT:[facility] [address] [phone] NICHOLE MD 10/22/2024 3:55 PM EST 10/22/2024 3:55 PM EST Generic External Data Provider LAB BLOOD ORDERAB LES Final Result Performing Organization Address [facility] de Phone Number [facility] [address] [place] [phone] * (ABNORMAL) PTH, Intact Without Calcium (10/22/2024 3:55 PM EST) Only the most recent of2 resultswithin the time period is included. Parathyroid Hormone, Intact 188.2(H) 8.7 - 77.1 pg/mL [facility] 10/22/2024 3:55 PM EST 10/22/2024 3:55 PM EST us Generic External Data Provider LAB BLOOD ORDERAB LES Final Result Performing Organization Address [facility] Co de Phone Number [facility] [address] [place] [phone] * Ferritin (10/22/2024 3:55 PM EST) Pathologist [facility] Ferritin 44 10 - 250 ng/mL [facility] 10/22/2024 3:55 PM EST 10/22/2024 3:55 PM EST Generic External Data Provider LAB BLOOD ORDERAB LES Final Result Performing Organization Address [facility] de Phone Number [facility] [address] [place] [phone] * (ABNORMAL) Comprehensive Metabolic Panel (10/22/2024 3:55 PM EST) Pathologist [facility] Sodium 139 135 - 145 mmol/L [facility] Potassium 4.1 3.3 - 5.1 mmol/L [facility] Chloride 102 96 - 108 mmol/L [facility] Carbon Dioxide 29 22 - 29 mmol/L [facility] Anion Gap 12 12 - 20 [facility] Urea Nitrogen (BUN) 12 9 - 16 mg/dL [facility] Creatinine, Serum 1.27 0.5 - 1.4 mg/dL [facility] Estimated Glomerular Filt Rate 43 [facility] Comment:Chronic Kidney Disea se: Estimated GFR < 60 mL/min/1.54t0Qyebxp Kidney Disease: Estimated GFR < 15 mL/min/1.73m2 Glucose 95 60 - 115 mg/dL [facility] Calcium 10.1 8.4 - 10.2 mg/dL [facility] Bilirubin, Total 0.2 0.0 - 1.0 mg/dL [facility] Aspartate Amino Transferase 21 5 - 31 U/L [facility] Alanine Aminotransferase 14 0 - 31 U/L [facility] Total Protein 8.5(H) 6.5 - 8.0 g/dL [facility] Albumin Level 3.8 3.5 - 5.0 g/dL [facility] Alkaline Phosphatase 99 39 - 117 U/L [facility] Blood Venous blood specimen / Unknown 10/22/2024 3:55 PM EST 10/22/2024 3:55 PM EST us Jennifer Sultana HYDRAULIC STRAINER OPERATOR LAB BLOOD ORDERABLES Final Resul t Performing Organization Address [facility] Co de Phone Number [facility] [address] [place] [phone] * Protein Creatinine Ratio, Urine (10/22/2024 3:49 PM EST) Creatinine, Urine 30.12 mg/dL [facility] Protein, Total, Random Urine <7 <12 mg/dL [facility] Protein/Creatin ine Ratio, Ur TNP <0.2 [facility] Comment:Unable to calculate urine protein creatinine ratio due tolow creatinine or protein result. 10/22/2024 3:49 PM EST 10/22/2024 4:08 PM EST us Generic External Data Provider LAB URINE ORDERAB LES Final Result Performing Organization Address [facility] Co de Phone Number [facility] [address] [place] [phone] * Urinalysis with Reflex to Microscopic (10/22/2024 3:49 PM EST) Color Urine Yellow [facility] Appearance Urine Clear [facility] PH 6.5 5.0 - 9.0 [facility] Glucose Urine UA Negative Negative mg/dL [facility] Urine Blood Negative Negative [facility] Specific [place] - Urine <=1.005 1.005 - 1.025 [facility] Urine Protein Negative Neg-Trace mg/dL [facility] Urine Ketones Negative Negative mg/dL [facility] Nitrite Urine Negative Negative [facility] Leukocyte Esterase Urine Negative Negative [facility] 10/22/2024 3:49 PM EST 10/22/2024 4:08 PM EST Generic External Data Provider LAB URINE ORDERAB LES Final Result Performing Organization Address [facility] Co de Phone Number [facility] [address] [place] [phone] * Immunofixation (SOLOMON), Urine (10/22/2024 3:49 PM EST) SOLOMON Interpretation SEE NOTE [facility] Comment:Normal pattern. No m onoclonal proteins detected.The supplier of the testing reagents for this assayhas changed. Detection of small monoclonal proteins mayvary by test system.THIS TEST WAS PERFORMED AT:[employer] [place] [phone] NICHOLE MD 10/22/2024 3:49 PM EST 10/22/2024 4:08 PM EST Generic External Data Provider LAB URINE ORDERAB LES Final Result Performing Organization Address [facility] Co de Phone Number [facility] [address] [place] [phone] * Albumin, Random Urine W/Creatinine (10/22/2024 3:49 PM EST) Creatinine, Urine 29.30 mg/dL [facility] Microalbumin Urine <5.0 mg/L [facility] Microalbum Creatinine Ratio Ur TNP <30 ug/mg cr [facility] Comment:Unable to calculate albumin/creatinine ratio due to lowmicroalbumin or creatinine result. Urine (Urine, Random) 10/22/2024 3:49 PM EST 10/22/2024 4:08 PM EST us Manolo Garcia ANP LAB URINE ORDERABLES Final Resul t Performing Organization Address [facility]/State/ZIP Co de Phone Number [facility] [address] [facility] [place] [address] [phone] * BI Mammogram Screening Tomosynthesis Bilateral (06/19/2024 1:23 PM EDT) Anatomical Region Laterality Modality Breast Bilateral Mammography 06/19/2024 1:23 PM EDT Narrative 06/28/2024 10:33 AM EDT ? [facility] ? [address] ?[place] [address] ? Mammography Report ? Signed ? Patient: Connorebury,Cherri J ?MR#: [id number] ?? [id number] ? : 1965 ?Acct:[id number] ? Age/Sex: 59 / F ?ADM Date: 06/19/ ? Loc: HO.MAMMO ? Attending Dr: Manolo Garcia HYDRAULIC STRAINER OPERATOR ? Ordering Physician: MANOLO GARCIA NP ?Results: 1Negative ? Date of Service: 06/19/ ?Follow Up: 1 Year From Orig ?? inal Mammogram ? Procedure(s): MM tomosynthesis screening BI ?? Accession Number(s): [id number] ? cc: RADHA,MANOLO FARRIS ? EXAMINATION: ?? [...] DD/ 1323 ? TD/TT: 06/19/24 1336 ? Research And Development Technician: ? Procedure Note Daniel, Isabel - 06/28/2024 [facility] [address] [place], [place] [address] Mammography Report Signed Patient: Cherri Nash R#: [id number] : 1965Acct:[id number] Age/Sex: 59 / FADM Date: 06/19/24 Loc: SARINA Attending Dr: Manolo Garcia HYDRAULIC STRAINER OPERATOR Ordering Physician: MNAOLO GARCIAesults: 1Negative Date of Service: 06/19/24Follow Up: 1 Year From Orig inal Mammogram Procedure(s): MM tomosynthesis screening BI Accession Number(s): [id number] cc: MANOLO GARCIA NP EXAMINATION: MM SCREENING [...] 06/28/24 1030 DD/ 1323 TD/TT: 06/19/24 1336 Research And Development Technician: Manolo HUFFMAN IMValentino BI PROCEDURES Final Result * (ABNORMAL) Lipid Panel, Standard (05/02/2024 2:55 PM EDT) Triglycerides 286(H) <150 mg/dL [facility] Comment:Desirable Triglyceri de: less than 150 mg/dLBorderline High Triglyceride 150-199 mg/dLHigh Triglyceride: 200-499 mg/dLVery High Triglyceride: greater than or equal to 5OO mg/dL Cholesterol 216(H) <200 mg/dL [facility] Comment:Desirable Cholestero l: less than 200 mg/dLBorderline High Cholesterol: 200-239 mg/dLHigh Cholesterol: greater than 239 mg/dL LDL Cholesterol Calculated 123(H) <100 mg/dL [facility] Comment:Desirable LDL: less than 100 mg/dLNear Optimal/Above Optimal LDL: 110- 129 mg/dLBorderline High LDL: 130-159 mg/dLHigh LDL: 160-189 mg/dLVery High LDL: greater than or equal to 190 mg/dL HDL Cholesterol 36(L) >40 mg/dL [facility] Comment:Desirable HDL: great er than 40 mg/dL Note: This HDL assay may give artificially low results in patients with liver disease. 05/02/2024 2:55 PM EDT 05/02/2024 4:04 PM EDT Manolo Garcia [facility] LAB BLOOD ORDERABLES Final Resul t Performing Organization Address [facility] [facility] Phone Number [facility] [address] [place] [phone] * HIV 1/2 ANTIGEN/ANTIBODY,FOURTH GENERATION W/RFL (05/08/2022 2:27 PM EDT) Pathologist [facility] HIV-1/2 ANTIGEN AND ANTIBODIES, 4TH GENERATION W/ REFLEX NON-REACT IRON NON-REACT IRON [facility] Comment: HIV-1 antigen and HIV-1/HIV-2 [...] ? For additional information please refer to http://education.InsideTrack.Ribbon/faq/GZG551 (This link is being provided for informational/ educational purposes only.) ? The performance of this assay has not been clinically validated in patients less than 2 years old. ?? 05/08/2022 2:27 PM EDT us Manolo Garcia [facility] BLOOD ORDERABLES Final Resul t [facility] [address] [place] [address], * Hm Colonoscopy (04/12/2018) Colonoscopy Normal Normal Historical Provider HEALTH MAINTENANCE Final Result * HPV mRNA E6/E7 (10/25/2016 9:30 AM EST) HPV mRNA E6/E7 Not Detected NOT DETECTED [facility] Comment: This test was performed using the APTIMA(R) HPV Assay ([employer] This assay detects E6/E7 viral messenger RNA (mRNA) from 14 high-risk HPV types (16,18,31,33,35,39,45,51, 52,56,58,59,66,68). For additional information please refer to: http://education.Compario/faq/CIY406l7 (This link is being provided for informational/ educational purposes only.) Test Performed by [employer], [employer] [facility], [address] [place] [address] Naif Pereira M.D., Ph.D., Director of Laboratories , [facility] [id number] Please note: ??Effective 05/08/2016, HPV testing will be performed using [employer] APTIMA test which targets mRNA. Detecting mRNA instead of DNA, as in older methods, offers significant improvements in specificity. 10/25/2016 9:30 AM EST Hazel Corcoran MD HISTORICAL/NON ORDERABLE LABS Final Result [facility] [address] from Last 3 Months or Most Recently Relevant to Health Maintenance [place] [address] [place] [address] C3 Care Teams Supervisor Pullet Farm Relationship Specialty Start Date End Date Jennifer Sultana NP [address] [place] [address] PCP - General Family Medicine 07/28/24 Juanito Srinivasan Vat Skimmer 05/10/23 Francisco J Palomino Vat SkimmerStores Laborer 05/16/23 Fawad Vargas Vat SkimmerStores Laborer 08/11/24
--- OUTSIDE RECORDS SUMMARY | 2024-12-10 15:32 | XMS_ITS | Encounter Summary ---
Author Organization [employer] Address [address] [facility] 7t [place] [address] Care Team Providers Care Accounting Consultant Name Role Phone Ju Khan Primary Care Provider Jennifer Sultana NP Primary Care Provider [phone] Reason for Visit * Reason Comments Med Refill Encounter Details Date Type Department Care Team ([facility] Contact Info) Description 10/28/2023 Refill [facility] MEDICINE [address] [place], [place] [phone] Ju Khan ANP 230 [place] [address] Multiple joint pain Social History Tobacco Use [...] Description 12/23/2024 1:00 PM EDT Procedure Visit [facility] MEDICINE [address] [place] [address] Jennifer Sultana NP 230 [place] [address] documented as of this encounter Visit Diagnoses Diagnosis Multiple joint pain Pain in joint, multiple sites documented in this encounter Additional Health Concerns Assessment Noted Time PHQ-9 Depression Total Score: 9 12/01/19 10:12 AM EDT documented as of this encounter Care Teams Accounting Consultant Relationship Specialty Start Date End Date Ju Khan ANP [address] [place] [phone] PCP - General Family Medicine 03/20/22 07/27/24 Jennifer Sultana NP [address] [place] [address] PCP - General Family Medicine 07/28/24 Juanito Srinivasan Hand Shaker 05/10/23 Francisco J Palomino Hand ShakerHealth Insurance Agent 05/16/23 Fawad Vargas Hand ShakerHealth Insurance Agent 08/11/24 documented as of this encounter
== END 2024-12-10 13:53 | disposition home or self-care (01) ==
LOC: HO.HCS 13:05
PROVIDERS: PCP Nurse Practitioner Family; Visit Provider Internal Medicine
DX: R07.2 Precordial pain (principal); I65.29 Occlusion and stenosis of unspecified carotid artery; R94.31 Abnormal electrocardiogram [ECG] [EKG]
CPT/HCPCS: 93010; 99214

== ENCOUNTER → 2024-12-10 13:04 | Outpatient (BNVA) | payer MEDICAID, SELFPAY | PROVIDERS: PCP Nurse Practitioner Family; Visit Provider Internal Medicine | DX: R07.2 Precordial pain (principal); I65.29 Occlusion and stenosis of unspecified carotid artery | CPT/HCPCS: 93005; 99212 ==

== ENCOUNTER 2025-01-16 08:55 | Outpatient (REF) | payer MEDICAID, SELFPAY ==
--- NOTE | ~2025-01-16 | US_ITS ---
CLINICAL HISTORY: I65.23 - Occlusion and stenosis of bilateral carotid arteries US Bilateral Carotid Duplex Comparison: None Findings: No significant plaque within the common carotid arteries. No significant plaque within the carotid bulbs. Normal color doppler and waveforms morphology. Peak systolic velocities: Right CCA: 115 cm/s. Right ICA: 95 cm/s. ICA/CCA ratio: 0.8. Right ECA: Unremarkable. Right vertebral artery flow antegrade. Left CCA: 139 cm/s. Left ICA: 107 cm/s. ICA/CCA ratio: 0.6. Left ECA: Unremarkable. Left vertebral artery flow antegrade. IMPRESSION: Normal carotid velocities, no significant stenosis (0-49% stenosis). This document has been electronically signed by: Philippe Betancourt MD on 01/16/2025 17:38:09
--- NOTE | ~2025-01-16 | US_ITS ---
CLINICAL HISTORY: N18.31 - Chronic kidney disease, stage 3a US Renal with Doppler Comparison: None Findings: Right kidney normal size and echotexture, 11.0 cm length. No hydronephrosis. Normal color Doppler. Resistive index 0.7. Left kidney normal size and echotexture, 10.8 cm length. No hydronephrosis. Normal color Doppler. Resistive index 0.7. Urinary bladder is not evaluated on the current study IMPRESSION: 1. No sonographic evidence of renal arterial stenosis This document has been electronically signed by: Philippe Betancourt MD on 01/16/2025 17:37:40
--- OUTSIDE RECORDS SUMMARY | 2025-01-16 09:16 | XMS_ITS | Encounter Summary ---
Author Organization [employer] Address [address] [facility] 7t [place] [address] Care Team Providers Care Nurse Practitioner Physicians Assistant Name Role Phone Ju Khan Primary Care Provider [phone] Jennifer Sultana NP Primary Care Provider [phone] Reason for Visit * Reason Comments Med Refill Encounter Details Date Type Department Care Team ([facility] Contact Info) Description 07/15/2024 Refill [facility] MEDICINE [address] [place], [place] [phone] Ju Khan ANP 230 [place] [address] Multiple joint pain Social History Tobacco Use [...] Care Team (Late st Contact Info) Description 02/24/2025 1:00 PM EDT Procedure Visit [facility] MEDICINE [address] [place] [address] Jennifer Sultana NP 230 [place] [address] 05/29/2025 10:30 AM EDT Office Visit [facility] OPTOMETRY [address] [place] [address] Isaiah, Meli, OD 230 [place] [address] documented as of this encounter Visit Diagnoses Diagnosis Multiple joint pain Pain in joint, multiple sites documented in this encounter Additional Health Concerns Assessment Noted Time PHQ-9 Depression Total Score: 3 04/04/20 24 1:48 PM EDT documented as of this encounter Care Teams Nurse Practitioner Physicians Assistant Relationship Specialty Start Date End Date Ju Khan ANP [address] [place] [address] PCP - General Family Medicine 03/20/22 07/27/24 Jennifer Sultana NP [address] [place] [address] PCP - General Family Medicine 07/28/24 Juanito Srinivasan Deputy Sheriff K9 Handler 05/10/23 Francisco J Palomino Deputy Sheriff K9 HandlerMold Construction Supervisor 05/16/23 Fawad Vargas Deputy Sheriff K9 HandlerMold Construction Supervisor 08/11/24 documented as of this encounter
== END 2025-01-16 08:56 | disposition home or self-care (01) ==
LOC: HO.HMGCX 08:55
PROVIDERS: PCP Internal Medicine Nephrology; Referring Provider Urology; Visit Provider Internal Medicine
DX: N18.31 Chronic kidney disease, stage 3a (principal); I65.23 Occlusion and stenosis of bilateral carotid arteries
CPT/HCPCS: 76775; 93880; 93975

== ENCOUNTER → 2025-01-16 08:58 | Outpatient (BNV) | payer MEDICAID, SELFPAY | PROVIDERS: PCP Internal Medicine Nephrology; Referring Provider Urology; Visit Provider Specialist | DX: N18.31 Chronic kidney disease, stage 3a (principal) | CPT/HCPCS: 93975 ==

== ENCOUNTER 2025-02-02 14:50 | Outpatient (AMB) | payer MEDICAID, SELFPAY ==
--- NOTE | 2025-02-02 14:51 | MHC.OFFVIS ---
Intake Visit Reasons: cysto/US Intake Note: Patient presents today for cystoscopy/US Urology Medication:none Blood Thinner:none Antibiotic Allergies:Penicillin, Amoxicillin Allergies codeine Allergy (Severe, Verified 02/02/25 14:51) Anaphylaxis aspirin Allergy (Mild, Verified 02/02/25 14:51) Hives Penicillins [PENICILLINS] Allergy (Mild, Verified 02/02/25 14:51) HIVES Sulfa (Sulfonamide Antibiotics) Allergy (Mild, Verified 02/02/25 14:51) Hives sulfamethoxazole [From Bactrim] Allergy (Mild, Verified 02/02/25 14:51) inflamed hives, rash, trimethoprim [From Bactrim] Allergy (Mild, Verified 02/02/25 14:51) inflamed hives, rash, amoxicillin [AMOXICILLIN] Allergy (Unknown, Verified 02/02/25 14:51) HIVES albuterol Allergy (Verified 02/02/25 14:51) Hives citalopram [From Celexa] Allergy (Verified 02/02/25 14:51) Hives lamotrigine [From Lamictal] Allergy (Verified 02/02/25 14:51) Hives olanzapine Allergy (Verified 02/02/25 14:51) Hives morphine Adverse Reaction (Mild, Verified 02/02/25 14:51) Itching haloperidol [From Haldol] Adverse Reaction (Verified 02/02/25 14:51) Angioedema HPI Comments Details: 02/02/25-- History of Present Illness - The patient is a 59-year-old female presenting with lower urinary tract symptoms. - She was initially evaluated on 11/27/2024 for urgency and urinary leakage. - Despite starting Vesicare, there is uncertainty regarding adherence, with persistent symptoms. - She notes frequent urination and constant urge to void. - Medical history includes extensive nicotine use, with an ongoing habit. - The daughter assists with medication management, using a med box for organization. Urinary Symptoms Review - Experiences lower urinary tract symptoms characterized by urgency and urinary leakage. - Frequency of urination is perceived as constant. - Uncertainty regarding the effectiveness of Vesicare due to irregular adherence. - No noticeable improvement in urinary symptoms since the last consultation. - Self-reported frequent urination but no nocturnal enuresis or pain mentioned. - Bladder wall thickening observed. Results - Renal ultrasound on 01/16/2025: Kidneys within normal limits. - Office cystoscopy findings: No lesions detected; bladder wall thickening observed. Discussion Notes During the consultation, we discussed the persistent occurrence of urinary urgency and leakage despite previous initiation of Vesicare, although the patient is unsure of her adherence. I observed a thickening of the bladder wall, likely contributing to her symptoms. I reviewed the ongoing issue of nicotine dependence, which may complicate the management of her lower urinary tract symptoms. I informed the patient about re-evaluating her medication adherence, and a follow-up with her daughter will ensure she understands the proper regime. If Vesicare has been ineffective, considering an alternative treatment is necessary, discussed in subsequent follow-up consultations. Cystoscopy confirmed thickening with no visible lesions, which I conveyed while outlining the plan focusing on medication management and optimization. Plan - Confirm patient's adherence to Vesicare through coordination with her daughter. - Alter or continue Vesicare based on symptom improvement and medication adherence. - Monitor bladder wall thickening and urinary symptoms for changes after medication adjustments. - Advise on integrating smoking cessation resources due to nicotine's effect on urinary health. - Schedule follow-up to evaluate bladder symptoms and response to treatment modifications. Patient Instructions - Take Vesicare as directed?confirm current usage with your daughter. - Monitor urinary symptoms and report any significant changes. - Consider reducing smoking and seek help for quitting for overall health improvement. - Follow up as scheduled for reassessment and support. Patient was informed and verbally consented to the use of an ambient scribe for clinic note documentation during this visit. 11/27/24 History of Present Illness The patient is a 59-year-old female presenting with complaints of urinary leakage associated with urgency. During previous health visits, she reports difficulty providing urine samples due to an inability to urinate on demand. Recent and past urine tests, including one on 10/22/24, revealed no blood or infection, yet urinary leakage and urgency persist. The patient has a history of nicotine use, adding complexity to her symptoms due to potential bladder irritation risks. She currently consumes two cans of Pepsi per day, which is noted as a possible exacerbating factor. Suggestions to decrease this consumption have been given. Plan discussed--The patient will be started on an anticholinergic medication to address her urinary incontinence and urgency. She will work on reducing her caffeine intake, Due to her history of nicotine use, a renal ultrasound and office cystoscopy will be performed to assess the urinary tract further. Unable to provide urine sample today. Urinary Symptoms Review - Urinary leakage with urgency - Caffeine intake at approximately two cans of Pepsi per day, adding potential irritant effects Results - Labs: Urinalysis on 10/22/24 negative for blood or leukocytes PFSH Medical History Delayed gastric emptying Hypercalcemia Tearfulness Rhinosinusitis Essential (primary) hypertension Anorexia nervosa, restricting type Blindness of left eye Thoracic back pain Uterine leiomyoma Vitamin D deficiency Visual impairment Stress incontinence of urine Chronic kidney disease, stage 3a Former smoker Rib lesion Recurrent acute sinusitis Raised TSH level Pure hypercholesterolemia Mixed hyperlipidemia Postural dizziness Opioid dependence Muscle pain Multiple joint pain Moderate persistent asthma without complication Lumbar radiculopathy Chronic rhinitis Hepatitis C Blood in urine Asthenia COVID-19 vaccine series completed Bipolar disorder Chronic pain syndrome Disc degeneration, lumbar Spondylosis 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 Chronic constipation Deviated septum Emphysema lung Adenomatous colon polyp Acid reflux Surgical History History of tympanoplasty S/P surgery on nasal septum History of bunionectomy History of tubal ligation History of esophagogastroduodenoscopy (EGD) Hx of colonoscopy Family History Father Brain cancer Mother Ovarian cancer Breast cancer Cervical cancer Social History Household Members: Children Alcohol intake: never Patient Tobacco Use Status: Former Tobacco user Tobacco use type: Cigarette Current occupational status: unemployed Office Procedures Cystoscopy Consent Discussed risk and benefit or proposed procedure with the patient. Information consent for procedure given to the patient. Discussed technical aspects, risks, benefits and alternatives in full. Addressed all of the patient's questions and concerns regarding the procedure. The patient demonstrated knowledge and understanding. They wish to proceed with this procedure. Preparation The patient was prepped in the usual manner. A casting room operator was present and in the room. Genitalia was prepped with betadine solution in a sterile manner. Lidocaine Jelly 2% was placed into the urethra and 16Fr flexible Olympus cystoscope was inserted into the meatus after adequate lubrication. [id number] DISPOSABLE SCOPE URO-G FLEXIBLE SCOPE Procedure code (CPT) selection complete Office Meds lidocaine HCl 2 % mucosal jelly in applicator Performing Provider: Mauricio Avilez MD [place] [facility] Administered by: Lilliam Roque RN on 02/02/25 15:22 Dose Route Admin Location Dispensed Lot Number Expiration Date NDC Wood Block Artist 10 mL intra-urethral 10 mL nitrofurantoin monohydrate/macrocrystals 100 mg capsule Performing Provider: Mauricio Avilez MD Performing [place] [facility] Administered by: Lilliam Roque RN on 02/02/25 15:22 Dose Route Admin Location Dispensed Lot Number Expiration Date NDC Wood Block Artist 100 mg PO 1 cap phenazopyridine 200 mg tablet Performing Provider: Mauricio Avilez MD Performing Location: [facility] Administered by: Lilliam Roque RN on 02/02/25 15:22 Dose Route Admin Location Dispensed Lot Number Expiration Date NDC Wood Block Artist 200 mg PO 1 tab Results AMB Urinalysis, Automated UA Leukoctes 0 Boris/uL Last Edit by Kajal Mederos on 02/02/25 16:43 UA Nitrite Negative Last Edit by Kajal Mederos on 02/02/25 16:43 UA Urobilinogen 3.5 mg/dL Last Edit by Kajal Mederos on 02/02/25 16:43 UA Protein 1 mg/dL Last Edit by Kajal Mederos on 02/02/25 16:43 UA pH 6.0 Last Edit by Kajal Mederos on 02/02/25 16:43 UA Blood 0 Clement/uL Last Edit by Kajal Mederos on 02/02/25 16:43 UA Specific [place] 1.010 Last Edit by Kajal Mederos on 02/02/25 16:43 UA Ketone Negative Last Edit by Kajal Mederos on 02/02/25 16:43 UA Bilirubin 0 mg/dL Last Edit by Kajal Mederos on 02/02/25 16:43 UA Glucose 0 mg/dL Last Edit by Kajal Mederos on 02/02/25 16:43 Results Reviewed Results Reviewed: Date of Service: 01/16/25 Procedure(s): US renal BI Accession Number(s): [id number] cc: Kenneth Barakat MD~ CLINICAL HISTORY: N18.31 - Chronic kidney disease, stage 3a US Renal with Doppler Comparison: None Findings: Right kidney normal size and echotexture, 11.0 cm length. No hydronephrosis. Normal color Doppler. Resistive index 0.7. Left kidney normal size and echotexture, 10.8 cm length. No hydronephrosis. Normal color Doppler. Resistive index 0.7. Urinary bladder is not evaluated on the current study IMPRESSION: 1. No sonographic evidence of renal arterial stenosis Assessment & Plan Assessment & Plan Orders: Orders AMB Cystoscopy Today R32 - Unspecified urinary incontinence, R39.15 - Urgency of urination AMB Urinalysis Automated Today Z13.9 - Encounter for screening, unspecified Coding CPT Codes Cystoscopy - CPT: 49153-[id number] ([id number])
--- OUTSIDE RECORDS SUMMARY | 2025-02-02 16:36 | XMS_ITS | Encounter Summary ---
Author Organization [employer] Address [address] [facility] 7t [place] [address] Care Team Providers Care Applied Marine Physics Professor Name Role Phone Ju Khan Primary Care Provider [phone] Jennifer Sultana NP Primary Care Provider [phone] Reason for Visit * Reason Comments Med Refill Encounter Details Date Type Department Care Team ([facility] Contact Info) Description 07/15/2024 Refill [facility] MEDICINE [address] [place], [place] [phone] Ju Khan ANP 230 [place] [address] Multiple joint pain Social History Tobacco Use [...] Description 02/24/2025 1:00 PM EDT Procedure Visit [facility] MEDICINE [address] [place] [address] Jennifer Sultana NP 230 [place] [address] 05/29/2025 10:30 AM EDT Office Visit [facility] OPTOMETRY [address] [place] [address] Isaiah, Meli, OD [address] [place] [address] documented as of this encounter Visit Diagnoses Diagnosis Multiple joint pain Pain in joint, multiple sites documented in this encounter Additional Health Concerns Assessment Noted Time PHQ-9 Depression Total Score: 3 04/04/20 24 1:48 PM EDT documented as of this encounter Care Teams Applied Marine Physics Professor Relationship Specialty Start Date End Date Ju Khan ANP [address] [place] [address] PCP - General Family Medicine 03/20/22 07/27/24 Jennifer Sultana NP [address] [place] [address] PCP - General Family Medicine 07/28/24 Juanito Srinivasan Fire Extinguisher Mechanic 05/10/23 Francisco J Palomino Fire Extinguisher MechanicLaminator Preforms 05/16/23 Fawad Vargas Fire Extinguisher MechanicLaminator Preforms 08/11/24 documented as of this encounter
== END 2025-02-02 15:46 | disposition home or self-care (01) ==
LOC: HO.HUSH 14:50
PROVIDERS: PCP Internal Medicine Nephrology; Visit Provider Urology
DX: R39.15 Urgency of urination (principal); R32 Unspecified urinary incontinence; Z13.9 Encounter for screening, unspecified

== ENCOUNTER → 2025-02-02 14:50 | Outpatient (BNVA) | payer MEDICAID, SELFPAY | PROVIDERS: PCP Internal Medicine Nephrology; Visit Provider Urology | DX: R39.15 Urgency of urination (principal) ==

== ENCOUNTER 2025-03-09 08:53 | Outpatient (REF) | payer MEDICAID, SELFPAY ==
--- OUTSIDE RECORDS SUMMARY | 2025-03-10 09:06 | XMS_ITS | Encounter Summary ---
Author Organization [employer] Address [address] [facility] 7t [place] [address] Care Team Providers Care Manager Landscape Name Role Phone Ju Khan Primary Care Provider [phone] Jennifer Sultana NP Primary Care Provider [phone] Reason for Visit * Reason Comments Med Refill Encounter Details Date Type Department Care Team ([facility] Contact Info) Description 07/15/2024 Refill [facility] MEDICINE [address] [place], [place] [phone] Ju Khan ANP [address] [place] [address] Multiple joint pain Social History Tobacco Use [...] Care Team (Late st Contact Info) Description 04/07/2025 10:45 AM EDT Office Visit [facility] MEDICINE [address] [place] [address] Bree Love MD [address] [place] [address] 05/29/2025 10:30 AM EDT Office Visit [facility] OPTOMETRY [address] [place] [address] Meli Colon, OD [address] [place] [address] documented as of this encounter Visit Diagnoses Diagnosis Multiple joint pain Pain in joint, multiple sites documented in this encounter Additional Health Concerns Assessment Noted Time PHQ-9 Depression Total Score: 3 04/04/20 24 1:48 PM EDT documented as of this encounter Care Teams Manager Landscape Relationship Specialty Start Date End Date Ju Khan ANP [address] [place] [address] PCP - General Family Medicine 03/20/22 07/27/24 Jennifer Sultana NP [address] [place] [address] PCP - General Family Medicine 07/28/24 Juanito Srinivasan Dispute Resolution Analyst 05/10/23 Francisco J Palomino Dispute Resolution AnalystMagnetic Tester 05/16/23 Fawad Vargas Dispute Resolution AnalystMagnetic Tester 08/11/24 documented as of this encounter
--- OUTSIDE RECORDS SUMMARY | 2025-03-10 09:06 | XMS_ITS | Clinical Summary ---
Author Organization [address] [facility] Address [address] [place] [address] Phone Care Team Providers Care Multi Slide Machine Tender Name Role Phone Jennifer Sultana PRATIK Primary Care Provider [phone] Allergies Active Allergy Reactions Criticality Noted Date Comments Amoxicillin 09/30/2024 Aspirin 09/30/2024 Sulfamethoxazole-Trimethoprim 2024 Citalopram 09/30/2024 Codeine 09/30/2024 Haloperidol 09/30/2024 Lamotrigine 09/30/2024 Morphine 09/30/2024 Penicillins 09/30/2024 Sulfa (Sulfonamide Antibiotics) 11/2024 Medications ammonium lactate (AmLactin) 12 % lotionIndicatio ns:Xerosis cutis Apply topically 2 (two) times a day. Apply to feet daily where socks at night 140 g 3 5 12/05/19 26 Active Social History Tobacco Use Types Packs/Day Years Used Date Smoking Tobacco: Never Assessed Comments Unknown Sex and Gender Information Value Date Recorded Sex Assigned at Female 01/29/2025 1:15 PM EDT Legal Sex Female 3:08 PM EST Gender Identity Female 01/29/2025 1:15 PM EDT Sexual Orientation Straight 01/29/2025 1: 15 PM EDT Last Filed Vital Signs Vital Sign [...] Care Team (Late st Contact Info) Description 05/14/2025 1:00 PM EDT Office Visit [facility] [place] [address] [facility] [address] [place] [phone] Artie Goodrich, DPM 175 [facility] [address] [place] [address] Health Maintenance Due Date Last Done Comments Breast Cancer Screening 1965 Hepatitis A Vaccines (1 of 2 - Risk 2-dose series) 1986 Hepatitis B Vaccines (1 of 3 - 19+ 3-dose series) 1986 Cervical Cancer Screening: Pap Smear 02/11/1988 Colorectal Cancer Screening: Colonoscopy 08/19/2024 Hepatitis C Screening 08/19/2024 Social Influencers of Health Screening 08/19/2024 Influenza Vaccine (#1) 2025 , 07/02/2023, 11/11/2020, Additional history exists Depression Screening 07/28/2025 07/28/2024 Hypertension/CHF/CAD Annual BMP Blood Test 10/22/2025 10/22/2024 DTaP,Tdap,and Td Vaccines (3 - Td or Tdap) 10/25/2026 10/25/2016, 03/04/2010 Cholesterol Screening (Lipid Panel) 05/02/2029 05/02/2024 Zoster Vaccines Completed 09/22/2019, 06/23/2019 HIV Screening Completed 05/08/2022 Pneumococcal Vaccine: 50+ Years Completed 12/18/2022, 06/23/2019, 02/09/2017, Additional history exists COVID-19 Vaccine Completed 07/28/2024, , 01/28/2021 HIB Vaccines Aged Out No longer eligi [...] topic Insurance MEDICAID - [place] Care Teams Multi Slide Machine Tender Relationship Specialty Start Date End Date Jennifer Sultana FNP [address] [place] [phone] PCP - General Nurse Practitioner 08/18/24
== END 2025-03-09 08:54 | disposition home or self-care (01) ==
LOC: HO.HOSX 08:53
PROVIDERS: Visit Provider Physician Assistant
DX: Z13.89 Encounter for screening for other disorder (principal)

== ENCOUNTER 2025-04-08 12:19 | Emergency (ER) | payer MEDICAID, SELFPAY ==
--- NOTE | ~2025-04-08 | CT_ITS ---
CLINICAL HISTORY: unequal pupils, L>R CT head without contrast. CT angiography head and neck with contrast. 3D Postprocessing. COMPARISON: None provided. FINDINGS: HEAD CT: No intra-axial mass, midline shift, hydrocephalus, or acute hemorrhage. No significant atrophy-like change or white matter disease. The visualized paranasal sinuses and mastoid air cells are normal. The orbits are within normal limits. There is no acute fracture. HEAD AND NECK CTA: Aortic arch and cervical great vessels are patent. Small amount of calcified plaque present at the carotid bulbs bilaterally without significant stenosis. Intracranial arteries are patent. No aneurysm, dissection, or occlusion. No abnormal intracranial enhancement. The visualized thyroid gland is unremarkable. No cervical mass or fluid collection. Emphysema at the partially visualized lung apices. No acute fracture. Mild spondylosis. IMPRESSION: 1. Unremarkable head CT. 2. Patent head and neck CTA. This document has been electronically signed by: Deon Billingsley MD on 04/08/2025 18:12:52
[2025-04-08 12:28] VITALS: BP 135/72; PULSE 91; RESP 16; TEMP 36.3; O2SAT 95; BMI 27.4
--- NOTE | 2025-04-08 12:28 | ED_ITS ---
HPI - General Adult General Chief complaint: Eye Problems Stated complaint: right eye not dilating Time Seen by Provider: 04/08/25 14:13 Source: patient and RN notes reviewed Mode of arrival: ambulatory Limitations: no limitations History of Present Illness ED Provider: Bobbi Ríos PA-C HPI narrative: This is a 60-year-old female, with a past medical history of hypertension, hepatitis c, chronic kidney disease, FILIPE, carotid artery stenosis, COPD, who presents emergency department with concerns of eye concerns. She reports that upon wakening this morning, her daughter noticed her pupils were unequal. Patient reports no drug use, makeup, being in contact with any chemicals, history of similar symptoms in the past. She states that she has been in her usual health. She does report a headache, which she has daily - no changes to baseline headache. She reports some blurred vision from her left eye, which has since resolved upon arriving to the emergency department. She denies any dizziness, blurred vision, double vision, weakness, numbness, tingling, chest pain, shortness of breath, abdominal pain, nausea, vomiting or diarrhea. Denies contact lense use. Daughter reports that since this morning her pupils look much better and back to baseline. Daughter reports that patient is acting her normal self. No recent eye procedures. No head trauma. She is not on anticoagulants. No other complaints or concerns at this time. MD complaint: Eye complaint Onset (ago): day(s) Radiation: non-radiation Relieving factors: none Exacerbating factors: none Associated symptoms: denies other symptoms Treatments prior to arrival: none Related Data Home Medications ?Medication ?Instructions ?Recorded ?Confirmed folic acid 1 mg tablet 1 mg PO DAILY 01/31/2112/10 buprenorphine 12 mg-naloxone 3 mg 30 mg sublingual AURY LY 12/28/21 12/10/24 sublingual film (Suboxone) rosuvastatin 10 mg tablet 10 mg PO QAM 02/28/23 verapamil 120 mg 24 hr 120 mg PO QPM 02/28/2312/10 capsule,extended release cyclobenzaprine 5 mg tablet 5 mg PO ONCE PRN 07/23/24 12/10/24 furosemide 20 mg tablet (Lasix) 20 mg PO QAM 07/23/24 12/10/24 metoprolol tartrate 25 mg tablet 12.5 mg PO BID 12/10/24 omeprazole 40 mg capsule,delayed 40 mg PO BID PRN 10/2612/10/24 release Previous Rx's ?Medication ?Instructions ?Recorded albuterol sulfate 90 mcg/actuation 2 puff PO Q4-6H PRN shortness of 08/01/22 aerosol inhaler breath or wheezing #1 ea simethicone 125 mg capsule (Gas-X 125 mg PO BEDTIME NH N abdominal 04/11/23 Extra Strength) distention 30 days #30 caps lubiprostone 8 mcg capsule 8 mcg PO BID 30 days #60 ca ps 11/08/23 docusate sodium 100 mg capsule 200 mg (2 x 100 mg) PO BEDTIME 30 02/09/24 (Colace) days #60 caps methylcellulose (laxative) 500 mg 500 mg PO BID 30 day s #60 tabs 02/09/24 tablet (Citrucel) polyethylene glycol 3350 17 gram 17 g PO BID constipat ion 60 days 07/15/24 oral powder packet (Miralax) #30 ea theophylline 400 mg 400 mg PO QAM #90 tabs 11/10 tablet,extended release 24 hr solifenacin 10 mg tablet (Vesicare) 10 mg PO DAILY #30 tabs 11/27/24 tiotropium 2.5 mcg-olodaterol 2.5 2 puff PO DAILY #4 g florencia 01/22/25 mcg/actuation mist for inhalation (Stiolto Respimat) Allergies Allergy/AdvReac Type Severity Reaction Status Date / Time codeine Allergy Severe Anaphylaxis Verified 04/08/25 12:31 aspirin Allergy Mild Hives Verified 04/08/25 12:31 Penicillins (PENICILLINS) Allergy Mild HIVES Verified 04/08/25 12:31 Sulfa (Sulfonamide Allergy Mild Hives Verified 04/08/25 12:31 Antibiotics) sulfamethoxazole (From Allergy Mild inflamed Verified 04/08/25 12:31 Bactrim) hives, rash, trimethoprim (From Bactrim) Allergy Mild inflamed Verified 04/08/25 12:31 hives, rash, amoxicillin (AMOXICILLIN) Allergy Unknown HIVES Verified 04/08/25 12:31 albuterol Allergy Hives Verified 04/08/25 12:31 citalopram (From Celexa) Allergy Hives Verified 04/08/25 12:31 lamotrigine (From Lamictal) Allergy Hives Verified 04/08/25 12:31 olanzapine Allergy Hives Verified 04/08/25 12:31 morphine AdvReac Mild Itching Verified 04/08/25 12:31 haloperidol (From Haldol) AdvReac Angioedema Verified 04/08/25 12:31 Review of Systems 2 Review of Systems: Yes all other systems are reviewed and are negative Constitutional: Constitutional: Reports as per HPI ENT: Reports Normal hearing present Neurologic: Reports Normal hearing present [facility] Past Medical History Medical History Delayed gastric emptying Hypercalcemia Tearfulness Rhinosinusitis Essential (primary) hypertension Anorexia nervosa, restricting type Blindness of left eye Thoracic back pain Uterine leiomyoma Vitamin D deficiency Visual impairment Stress incontinence of urine Chronic kidney disease, stage 3a Former smoker Rib lesion Recurrent acute sinusitis Raised TSH level Pure hypercholesterolemia Mixed hyperlipidemia Postural dizziness Opioid dependence Muscle pain Multiple joint pain Moderate persistent asthma without complication Lumbar radiculopathy Chronic rhinitis Hepatitis C Blood in urine Asthenia COVID-19 vaccine series completed Bipolar disorder Chronic pain syndrome Disc degeneration, lumbar Spondylosis 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 Chronic constipation Deviated septum Emphysema lung Adenomatous colon polyp Acid reflux Surgical History History of tympanoplasty S/P surgery on nasal septum History of bunionectomy History of tubal ligation History of esophagogastroduodenoscopy (EGD) Hx of colonoscopy Family History Family History Father Brain cancer Mother Ovarian cancer Breast cancer Cervical cancer Social History Social History Household Members: Children Alcohol intake: never Patient Tobacco Use Status: Former Tobacco user Tobacco use type: Cigarette Smoked in Last 30 Days: No Use of substances other than those prescribed or required for medical reasons: No Advance Directives: No Advance Directives Information Provided: Yes Do you have a plan to hurt others: No Plan Patient : No Current occupational status: unemployed Physical Exam ED Vital Signs: Vital Signs - 24 hr 04/08/25 12:28 04/08/25 17:03 04/08/25 18:42 Temperature 97.4 F 97.4 F Pulse Rate 91 91 91 Respiratory Rate 16 18 18 Blood Pressure 135/72 116/77 116/77 Pulse Oximetry 95 96 96 Oxygen Delivery Method Nasal Cannula Room Air Room Air BMI result Body Mass Index 27.4 Const General: cooperative, comfortable and no acute distress Orientation/consciousness: patient oriented x3 Limitations: no limitations HENMT Head: Yes normal to inspection, Yes normocephalic and Yes atraumatic Ears: hearing grossly normal bilaterally General nose exam: Normal external nose present Face and sinus: Yes normal facial exam Mouth: Normal oral and palatal mucosa present, oropharynx normal and moist mucous membranes Throat: Yes posterior oropharynx normal Eyes Other: Photo taken by daughter prior to ED arrival, upon pt waking at around 8-9:00AM. Left eye appears to be dilated and larger than right. Photo of pt in ED. Pupils are equal, reactive to light, with EOMI. Pupils equal to accomadatiion, No surrounding orbital edema. General: appearance normal, both eyes and all related structures Eyelids: Yes eyelids normal Conjunctivae: conjunctivae normal Sclerae: sclerae normal Pupils: Equal, round and reactive pupils present EOM: EOMs intact bilaterally Neck Neck: Yes normal visual inspection, Yes full ROM and Yes no lymphadenopathy Lymphatic: no lymphadenopathy noted Chest Chest palpation & inspection: normal inspection of the chest Resp Effort & Inspection: normal respiratory effort and able to speak in complete sentences Auscultation: clear to auscultation bilaterally, no crackles, no rales, no rhonchi and no wheezes Cardio Rate: regular rate Rhythm: regular rhythm Heart sounds: S1 normal heart sound present and S2 normal heart sound present GI Inspection: Yes normal to inspection Skin General skin exam: no rashes or lesions noted Trauma: no lacerations or abrasions Wounds: no wounds Neuro General: patient oriented x3 and moves all extremities Cranial nerves: Yes CN's II-XII intact bilaterally, Yes Equal, round and reactive pupils present, Yes Bilaterally intact EOM present, Yes Nystagmus not present, Yes Normal facial strength present, Yes Normal hearing present and Yes Ability to bilaterally rotate head present Cognition (Neuro): normal cognition Gait exam (Neuro): Normal gait present Motor exam (neuro): 5/5 motor strength present throughout and Pronator motor function not present Sensory Exam: Normal double simultaneous stimulation for sensation Coordination: [id number]-gd-[id number] test normal and bsnk-wr-yjaf test normal Romberg Test: Negative Extrem General: Yes normal to inspection Right upper extremity: normal to inspection Left upper extremity: normal to inspection Right lower extremity: normal to inspection Left lower extremity: normal to inspection NIH Stroke Scale Internal: Initial- Upon Arrival Level of Consciousness: Alert Level of Consciousness Questions: Answers both questions correctly Level of Consciousness Commands: Performs both tasks correctly Best Gaze: Normal Visual: No visual loss Facial Palsy: Normal Motor Arm (Right): No drift Motor Arm (Left): No drift Motor Leg (Right): No drift Motor Leg (Left): No drift Limb Ataxia: Absent Sensory: Normal Best Language: No aphasia Dysarthia: Normal Extinction and Inattention: No abnormality Score: 0 Course Course Course Narrative: This is a rapid medical exam performed by Rony Patrick NP: Additional HPI, ROS, PE not included below will be deferred to primary provider. Patient is a 60-year-old female with pmhx CKD 3a, HTN, nicotine dependence, FILIPE, carotid artery stenosis, COPD presenting to the ED with daughter who reports patient's right eye was not dilating at home. Complains of headache for quite some time. L pupil > R, both constricting. Plan: will get labs to start, will defer imaging to primary provider Medications Administered Discontinued Medications Generic Name Dose Route Start Last Admin Trade Name Freq PRN Reason Stop Dose Admin Iohexol 100 ml 04/08/25 17:39 04/08/25 17:41 Iohexol 350 Mg/Ml 100 Ml Infus..Btl IV 04/08/25 17:40 70 ml ONCE ONE Administration Medical Decision Making Medical Decision Making [facility] Narrative: This is a [id number]-female, with a past medical hx of CKD, HTN, nicotine dependence, FILIPE, carotid artery stenosis, COPD, who presents to the ED accompanied by daughter with concerns of unequal pupils upon awakening this morning. On arrival, per triage provider, L pupil > R but constricting. When I assessed patient, pupils are equal, reactive, round. Pt is alert and oriented with no focal deficits. She reports a headache, which she has a hx of, otherwise no other complaints. Blurred vision upon awakening this morning which has since resolved. Daughter took photo of pt this moning which illustrates dilated left pupil, which appears to be WNL during assessment today. Discussed case with my attending physician, will perform CTA to r/o anneurysm or any intracranial process. CTA negative for any acute findings. Labs reassuring. Pt was observed for several hours while in the ED with no returrn of abnormal pupils. It is unclear what caused pupils to be unequal this AM. Given she has a normal neuro exam, feeling well and is asymptomatic, pt can be discharged with strict return precautions. Pt understands and agrees with plan. Pt stable for d.c. Differential Diagnosis Differential Diagnoses: The differential diagnosis associated with the presentation includes ICH, iritis, conjunctivitis, medication adverse side effect Admission/Observation Consideration of admission/observation: Escalation of care including admission/observation considered Lab Data MDM Lab Attestation statement: I reviewed the patient's lab results. No leukocytosis, stable H&H,No evidence of RODRIGO, chemistry with no electrolyte deranagements. 04/08/25 12:52 04/08/25 12:52 Labs: Lab Results 04/08/25 Range/Units 12:52 WBC 10.2 (4.8-10.8) X10*3/uL RBC 4.71 (4.20-5.50) X10*6/uL Hgb 13.1 (12.0-16.0) g/dl Hct 40.1 (37.0-47.0) % MCV 85.1 (80.0-98.0) fL MCH 27.8 (27.0-33.0) pg MCHC 32.7 (31.0-35.0) g/dl RDW 15.4 (11.0-16.0) % Plt Count 242 (160-400) X10*3/uL MPV 11.5 (9.4-12.3) fL Immature Gran % (Auto) 0.3 (0.0-0.4) % Neut % (Auto) 73.7 H (45-73) % Lymph % (Auto) 15.4 L (20-40) % [place] % (Auto) 6.4 (2-11) % Eos % (Auto) 3.5 (0-4) % Baso % (Auto) 0.7 (0-2) % Lymph # (Auto) 1.6 (1.2-4.9) X10*3/uL [place] # (Auto) 0.7 (0.1-1.2) X10*3/uL Eos # (Auto) 0.4 (0.0-0.4) X10*3/uL Baso # (Auto) 0.1 (0.0-0.2) X10*3/uL Abs Immat Gran (auto) 0.03 (0.00-0.03) X10*3/uL Absolute Neuts (auto) 7.5 (2.0-8.3) x10*3/uL Absolute Nucleated RBC 0.000 (0.0-0.012) X10*3/uL Nucleated RBC % (auto) 0.0 (0.0-0.2) /100WBC Sodium 142 (135-145) mmol/L Potassium 3.3 (3.3-5.1) mmol/L Chloride 102 (96-108) mmol/L Carbon Dioxide 29 (22-29) mmol/L Anion Gap 14 (12-20) BUN 10 (9-16) mg/dL Creatinine 1.06 (0.5-1.4) mg/dL Estim Creat Clear Calc 58.5 Estimated GFR 53 Random Glucose 80 (60-115) mg/dL Calcium 10.1 (8.4-10.2) mg/dL Total Bilirubin 0.3 (0.0-1.0) mg/dL AST 17 (5-31) U/L ALT 9 (0-31) U/L Alkaline Phosphatase 99 (39-117) U/L Total Protein 7.8 (6.5-8.0) g/dL Albumin 4.0 (3.5-5.0) g/dL Radiology Impression Discussion of test interpretation with radiology: I have reviewed the radiologist's reading. Radiologist Impression: CT head without contrast. CT angiography head and neck with contrast. 3D Postprocessing. COMPARISON: None provided. FINDINGS: HEAD CT: No intra-axial mass, midline shift, hydrocephalus, or acute hemorrhage. No significant atrophy-like change or white matter disease. The visualized paranasal sinuses and mastoid air cells are normal. The orbits are within normal limits. There is no acute fracture. HEAD AND NECK CTA: Aortic arch and cervical great vessels are patent. Small amount of calcified plaque present at the carotid bulbs bilaterally without significant stenosis. Intracranial arteries are patent. No aneurysm, dissection, or occlusion. No abnormal intracranial enhancement. The visualized thyroid gland is unremarkable. No cervical mass or fluid collection. Emphysema at the partially visualized lung apices. No acute fracture. Mild spondylosis. IMPRESSION: 1. Unremarkable head CT. 2. Patent head and neck CTA. This document has been electronically signed by: Deon Billingsley MD on 04/08/2025 18:12:52 Dictated By: Deon Billingsley MD Discharge Plan Discharge Clinical Impression: Anisocoria Patient Disposition: Home, Self-Care Instructions: Eye Pain (ED) Additional Instructions: You were seen in the ER after you had noticed your pupils were unequal in size. Your workup today was reassuring. Your symptoms have resolved. It is unclear what had caused you to have the symptoms however your CT of your head was normal. Please follow-up with your primary care physician regarding this visit. If any new or worsening symptoms occur including but not limited to severe headache, dizziness, blurred vision, chest pain, shortness breath, please seek emergent care. Prescriptions: No Action docusate sodium [Colace] 100 mg capsule 200 mg PO BEDTIME 30 Days Qty: 60 5RF Citrucel 500 mg tablet 500 mg PO BID 30 Days Qty: 60 2RF polyethylene glycol 3350 [Miralax] 17 gram powder in packet 17 g PO BID 60 Days Qty: 30 3RF theophylline 400 mg tablet extended release 24 hr 400 mg PO QAM Qty: 90 1RF Stiolto Respimat 2.5-2.5 mcg/actuation mist 2 puff PO DAILY Qty: 4 3RF folic acid 1 mg tablet 1 mg PO DAILY buprenorphine-naloxone [Suboxone] 12-3 mg film 30 mg sublingual DAILY albuterol sulfate 90 mcg/actuation HFA aerosol inhaler 2 puff PO Q4-6H PRN (Reason: shortness of breath or wheezing) Qty: 1 6RF rosuvastatin 10 mg tablet 10 mg PO QAM verapamil 120 mg capsule,ext rel. pellets 24 hr 120 mg PO QPM metoprolol tartrate 25 mg tablet 12.5 mg PO BID simethicone [Gas-X Extra Strength] 125 mg capsule 125 mg PO BEDTIME PRN (Reason: abdominal distention) 30 Days Qty: 30 2RF furosemide [Lasix] 20 mg tablet 20 mg PO QAM cyclobenzaprine 5 mg tablet 5 mg PO ONCE PRN solifenacin [Vesicare] 10 mg tablet 10 mg PO DAILY Qty: 30 5RF omeprazole 40 mg capsule,delayed release(DR/EC) 40 mg PO BID PRN lubiprostone 8 mcg capsule 8 mcg PO BID 30 Days Qty: 60 3RF Interventions: ED Discharge Assessment Last Done: 04/08/25 18:42 Discharge Date/Time: 04/08/25 18:50 Print Language: Czech
[2025-04-08 13:18] LABS: MANUAL DIFF FLAG NO
[2025-04-08 13:20] LABS: Hematocrit 40.1 % (37.0-47.0); Hemoglobin 13.1 g/dl (12.0-16.0); Imm Gran Abs Auto 0.03 X10*3/uL (0.00-0.03); Imm Gran Pct Auto 0.3 % (0.0-0.4); Lymphocytes Absolute Auto 1.6 X10*3/uL (1.2-4.9); Mean Corpuscular HGB Conc 32.7 g/dl (31.0-35.0); Mean Corpuscular Hemoglobin 27.8 pg (27.0-33.0); Mean Corpuscular Volume 85.1 fL (80.0-98.0); NRBC Abs Auto 0.000 X10*3/uL (0.0-0.012); NRBC Pct Auto 0.0 /100WBC (0.0-0.2); Platelet Count 242 X10*3/uL (160-400); Red Blood Count 4.71 X10*6/uL (4.20-5.50); White Blood Count 10.2 X10*3/uL (4.8-10.8)
[2025-04-08 13:39] LABS: Alanine Aminotransferase 9 U/L (0-31); Albumin Level 4.0 g/dL (3.5-5.0); Alkaline Phosphatase 99 U/L (39-117); Anion Gap 14 (12-20); Aspartate Amino Transferase 17 U/L (5-31); Blood Urea Nitrogen 10 mg/dL (9-16); Calcium 10.1 mg/dL (8.4-10.2); Carbon Dioxide 29 mmol/L (22-29); Chloride 102 mmol/L (96-108); Creatinine Clr Calc Pharmacy 58.5; Estimated Glomerular Filt Rate 53; Potassium 3.3 mmol/L (3.3-5.1); Sodium 142 mmol/L (135-145); Total Protein 7.8 g/dL (6.5-8.0)
--- OUTSIDE RECORDS SUMMARY | 2025-04-08 14:30 | XMS_ITS | Clinical Summary ---
Author Organization [address] [facility] Address [address] [place] [address] Phone Care Team Providers Care Waste Specialist Name Role Phone Jennifer Sultana PRATIK Primary Care Provider [phone] Allergies Active Allergy Reactions Criticality Noted Date [...] PM EDT Office Visit Orthopedic Surgery - [place] [address] [facility] [address] [place] [id number] Artie Goodrich, DPM [address] [facility] [address] [place] [address] Health Maintenance Due Date Last Done Comments Breast Cancer Screening 1965 Hepatitis A Vaccines (1 of 2 - Risk 2-dose series) 1986 Hepatitis B Vaccines (1 of 3 - 19+ 3-dose series) 1986 Cervical Cancer Screening: Pap Smear 02/11/1988 Colorectal Cancer Screening: Colonoscopy 08/19/2024 Hepatitis C Screening 08/19/2024 Social Influencers of Health Screening 08/19/2024 Depression Screening 08/27/2024 Influenza Vaccine (#1) 2025 , 07/02/2023, 11/11/2020, Additional history exists Hypertension/CHF/CAD Annual BMP Blood Test 10/22/2025 10/22/2024 [...] topic Insurance MEDICAID - [place] Care Teams Waste Specialist Relationship Specialty Start Date End Date Jennifer Sultana FNP [address] [place] [id number] PCP - General Nurse Practitioner 08/18/24
--- OUTSIDE RECORDS SUMMARY | 2025-04-08 14:30 | XMS_ITS | Encounter Summary ---
Author Organization [employer] Address [address] [place] [address] [address] [place] [address] Care Team Providers Care Construction Safety Manager Name Role Phone Jennifer Sultana NP Primary Care Provider [phone] Reason for Visit * Reason Onset Date Comments Referral 03/25/2025 Encounter Details Date Type Department Care Team ([facility] Contact Info) Description 03/25/2025 Telephone [facility] [address] [place], [place] [phone] Jennifer Sultana NP [address] [place] [address] Referral Social History Tobacco Use Types Packs/Day [...] Telephone Encounter - Goldie Taylor RN - 03/27/2025 12:30 PM EDT Call returned to pt who reports that female specialist at [facility] will not see her until she has completed an MRI of the spine. Pt states she is unsure of specialist's name but was advised to send MRI results to [phone]. Pt agrees to appt with Blue team provider next week as she needs time to arrange transportation. * Telephone Encounter - Dionisio Barragan - 03/25/2025 11:59 AM EDT Tc from pt requesting a referral for the MRI. For the spine. Any questions contact pt at [phone] documented in this encounter Plan of Treatment Upcoming Encounters Date Type Department Care Team (Late st Contact Info) Description 05/29/2025 10:30 AM EDT Office Visit [facility] OPTOMETRY [address] [place], [place] [phone] Isaiah, Meli, OD [address] [place] [address] 06/01/2025 2:45 PM EDT Office Visit [facility] [address] [place], [place] [phone] Jennifer Sultana NP [address] [place], [place] [phone] documented as of this encounter Visit Diagnoses Not on filedocumented in this encounter Additional Health Concerns Assessment Noted Time PHQ-9 Depression Total Score: 27 024 2:31 PM EST documented as of this encounter Care Teams Construction Safety Manager Relationship Specialty Start Date End Date Jennifer Sultana NP [address] [place], [place] [phone] PCP - General Family Medicine 07/28/24 Juanito Srinivasan Paint Maker 05/10/23 Francisco J Palomino Paint MakerPebble Mill Operator 05/16/23 Fawad Vragas Paint MakerPebble Mill Operator 08/11/24 documented as of this encounter
--- OUTSIDE RECORDS SUMMARY | 2025-04-08 14:31 | XMS_ITS | Encounter Summary ---
Author Organization [facility] Address [address] [facility] [address] [place] [phone] Phone Care Team Providers Care User Interface Artist Name Role Phone Nick Tejada DO Primary Care Provider [phone] Encounter Details Date Type Department Care Team (Late st Contact Info) Description 05/30/2018 Ancillary Orders [facility] [address] [place] [address] Nick Tejada DO [address] [place] [address] Dizziness Social History Tobacco Use Types Packs/Day Years Used Date Smoking Tobacco: Never Assessed Comments Unknown Sex and Gender Information Value Date Recorded Sex Assigned at Not on file Legal Sex Female 1:11 PM EDT Gender Identity Not on file Sexual Orientation Not on file documented as of this encounter Plan of Treatment Not on file documented as of this encounter Results * Holter Monitor 24 Hours (05/30/2018 10:24 AM EDT) Anatomical Region Laterality Modality Heart Other Narrative 05/30/2018 12:11 PM EDT 24-hour Holter monitor report Average heart rate is 87 bpm Minimal heart rate is 62 bpm Maximum heart rate is 148 bpm Less than 1% PACs and PVCs No atrial fibrillation atrial flutter or SVT No heart block or pauses No ventricular arrhythmias No patient activations for symptoms 15% of time patient is tachycardic. Nick Tejada DO [facility] ORDERABLE S Final Result documented in this encounter Visit Diagnoses Diagnosis Dizziness Dizziness and giddiness Dizziness Dizziness and giddiness documented in this encounter Care Teams User Interface Artist Relationship Specialty Start Date End Date Nick Tejada DO [address] [place] [id number] PCP - General Cardiology 05/29/18 documented as of this encounter Additional Source Comments The information contained in this document represents components of the legal health record. It is not the complete legal health record.[facility]
[2025-04-08 17:03] VITALS: BP 116/77; PULSE 91; RESP 18; O2SAT 96
[2025-04-08] MEDS: iohexoL 350 MG/ML 100 ML INFUS..BTL IV (17:41)
[2025-04-08 18:42] VITALS: BP 116/77; PULSE 91; RESP 18; TEMP 36.3; O2SAT 96
== END 2025-04-08 18:50 | disposition home or self-care (01) ==
PROVIDERS: Registered Nurse Emergency; Emergency Provider Emergency Medicine; PCP Nurse Practitioner Family
DX: H57.02 Anisocoria (principal); R51.9 Headache, unspecified; H57.12 Ocular pain, left eye; Z79.899 Other long term (current) drug therapy
CPT/HCPCS: 36415; 70496; 70498; 80053; 85025; 99284; Q9967

== ENCOUNTER → 2025-04-08 16:20 | Outpatient (BNV) | payer MEDICAID, SELFPAY | PROVIDERS: Emergency Provider Emergency Medicine; PCP Nurse Practitioner Family; Visit Provider Radiology Diagnostic Radiology | DX: H57.02 Anisocoria (principal) | CPT/HCPCS: 70496; 70498 ==

== ENCOUNTER 2025-04-22 13:12 | Outpatient (AMB) | payer MEDICAID, SELFPAY ==
--- NOTE | 2025-04-22 13:25 | A.OFFVIS_ITS ---
Vital Signs 04/22/25 13:31 Height 5 ft 5 in Weight 164 lb BMI 27.3 Intake Visit Reasons: OV-Limited ROM Right knee pain-F/U Intake Note: Cherri is a 59 year old female who presents today for a follow up with complaints of right knee pain. Patient is status post right tibial plateau fx, DOI 05/03/24. Today patient reports unable to apply heavy weight. Difficult with stair use. Staes her knee slows her down. She continues to performs at home exercises. Allergies codeine Allergy (Severe, Verified 04/08/25 12:31) Anaphylaxis aspirin Allergy (Mild, Verified 04/08/25 12:31) Hives Penicillins (PENICILLINS) Allergy (Mild, Verified 04/08/25 12:31) HIVES Sulfa (Sulfonamide Antibiotics) Allergy (Mild, Verified 04/08/25 12:31) Hives sulfamethoxazole (From Bactrim) Allergy (Mild, Verified 04/08/25 12:31) inflamed hives, rash, trimethoprim (From Bactrim) Allergy (Mild, Verified 04/08/25 12:31) inflamed hives, rash, amoxicillin (AMOXICILLIN) Allergy (Unknown, Verified 04/08/25 12:31) HIVES albuterol Allergy (Verified 04/08/25 12:31) Hives citalopram (From Celexa) Allergy (Verified 04/08/25 12:31) Hives lamotrigine (From Lamictal) Allergy (Verified 04/08/25 12:31) Hives olanzapine Allergy (Verified 04/08/25 12:31) Hives morphine Adverse Reaction (Mild, Verified 04/08/25 12:31) Itching haloperidol (From Haldol) Adverse Reaction (Verified 04/08/25 12:31) Angioedema Medication List - Last Reconciled 04/22/25 by Becca Rodriguez PA-C albuterol sulfate 90 mcg/actuation 2 puffs PO Q4-6H PRN buprenorphine-naloxone 12-3 mg (Suboxone) 30 mg sublingual DAILY cyclobenzaprine 5 mg PO ONCE PRN docusate sodium (Colace) 200 mg (2 x 100 mg) PO BEDTIME 30 days folic acid 1 mg PO DAILY furosemide (Lasix) 20 mg PO QAM lubiprostone 8 mcg PO BID 30 days methylcellulose (laxative) (Citrucel) 500 mg PO BID 30 days metoprolol tartrate 12.5 mg PO BID omeprazole 40 mg PO BID PRN polyethylene glycol 3350 (Miralax) 17 grams PO BID 60 days rosuvastatin 10 mg PO QAM simethicone (Gas-X Extra Strength) 125 mg PO BEDTIME PRN 30 days solifenacin (Vesicare) 10 mg PO DAILY theophylline ER 400 mg PO QAM tiotropium-olodaterol 2.5-2.5 mcg/actuation (Stiolto Respimat) 2 puffs PO DAILY verapamil ER 120 mg PO QPM HPI HPI OV-Limited ROM Right knee pain-F/U: Details: 60-year-old female returns to the office today for a follow-up right knee pain. She states her pain is present when she is performing activities like going up and downstairs or bending. She does have a history of a nondisplaced tibial plateau fracture which was treated conservatively. She denies new injury. [facility] Medical History Delayed gastric emptying Hypercalcemia Tearfulness Rhinosinusitis Essential (primary) hypertension Anorexia nervosa, restricting type Blindness of left eye Thoracic back pain Uterine leiomyoma Vitamin D deficiency Visual impairment Stress incontinence of urine Chronic kidney disease, stage 3a Former smoker Rib lesion Recurrent acute sinusitis Raised TSH level Pure hypercholesterolemia Mixed hyperlipidemia Postural dizziness Opioid dependence Muscle pain Multiple joint pain Moderate persistent asthma without complication Lumbar radiculopathy Chronic rhinitis Hepatitis C Blood in urine Asthenia COVID-19 vaccine series completed Bipolar disorder Chronic pain syndrome Disc degeneration, lumbar Spondylosis 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 Chronic constipation Deviated septum Emphysema lung Adenomatous colon polyp Acid reflux Surgical History (Reviewed 04/22/25 @ 13:26 by Khushbu Clemons [facility]) History of tympanoplasty S/P surgery on nasal septum History of bunionectomy History of tubal ligation History of esophagogastroduodenoscopy (EGD) Hx of colonoscopy Family History Father Brain cancer Mother Ovarian cancer Breast cancer Cervical cancer Social History Household Members: Children Alcohol intake: never Patient Tobacco Use Status: Former Tobacco user Tobacco use type: Cigarette Current occupational status: unemployed Review of Systems Const All systems reviewed & are unremarkable except as noted in HPI and below Physical Exam Vital Signs: BMI result Body Mass Index 27.3 Extrem Other: Right knee is normal to inspection she has full range of motion with crepitus and tenderness over the lateral aspect of the patella. Calf is supple and nontender neurovascularly intact. Results Reviewed Results Reviewed: X-rays of the right knee obtained in the office today and reviewed by me show patellofemoral arthritis . Healed tibial plateau fracture Assessment & Plan Assessment & Plan (1) Osteoarthritis of right knee: Code(s): M17.11 - Unilateral primary osteoarthritis, right knee Category: Medical Plan: At this time the patient was fit for a stabilizing new brace. I also put in an order for physical therapy which she will take to an outside facility. She will increase activities as tolerated and if symptoms persist or worsen she will contact our office otherwise she can follow up as needed. Orders: Orders XR knee RT 3V Today M17.11 - Unilateral primary osteoarthritis, right knee PT Evaluation and Treatment Today M17.11 - Unilateral primary osteoarthritis, right knee Coding Level of Care Code Est Pt Level 3 (85507) Complex EM visit Add On G2211 Diagnoses Osteoarthritis of right knee M17.11
[2025-04-22 13:31] VITALS: BMI 27.3
--- OUTSIDE RECORDS SUMMARY | 2025-04-22 13:54 | XMS_ITS | Encounter Summary ---
Author Organization [employer] Address [address] [place] [address] [address] [place] [address] Care Team Providers Care General Doc Name Role Phone Ju Khan ANP Primary Care Provider [phone] Jennifer Sultana SENIOR ELECTRICAL ENGINEER Primary Care Provider [phone] Reason for Visit * Reason Onset Date Comments PT-1 06/11/2024 Encounter Details Date Type Department Care Team ([facility] st Contact Info) Description 06/11/2024 Telephone [facility] MEDICINE [address] [place], [place] [phone] Ju Khan ANP [address] [place], [place] [phone] PT-1 Social History Tobacco Use Types Packs/Day [...] Y/N: Yes Provider name or facility name: [facility] Allergy (Dr. Philippe Evans) Facility Address: [address] [place] [address] Escort needed: Y/N: Yes Do you have a wheelchair: Y/N: No If yes- Manual or electric: (Uses walker and cane) Visits: 3 times a month - Patient calling requesting PT1 Home Address verified: Y/N: Yes Provider name or facility name: [facility] Facility Address: [address] [place] [address] Escort needed: Y/N: Yes Do you have a wheelchair: Y/N: No If yes- Manual or electric: Walker and Cane Visits: 4 a month - Patient calling requesting PT1 Home Address verified: Y/N: Yes Provider name or facility name: Ramez John MD Facility Address: [address] [place] [id number] Escort needed: Y/N: Yes Do you have a wheelchair: Y/N: No If yes- Manual or electric: Walker and cane Visits: 3 monthly documented in this encounter Plan of Treatment Upcoming Encounters Date Type Department Care Team (Late st Contact Info) Description 05/29/2025 10:30 AM EDT Office Visit [facility] OPTOMETRY [address] [place] [address] Isaiah Meli, OD [address] [place] [address] 06/01/2025 2:45 PM EDT Office Visit [facility] MEDICINE [address] [place] [address] Jennifer Sultana NP [address] [place] [address] documented as of this encounter Visit Diagnoses Not on filedocumented in this encounter Additional Health Concerns Assessment Noted Time PHQ-9 Depression Total Score: 3 04/04/20 24 1:48 PM EDT documented as of this encounter Care Teams General Doc Relationship Specialty Start Date End Date Ju Khan ANP [address] [place] [address] PCP - General Family Medicine 03/20/22 07/27/24 Jennifer Sultana NP [address] [place] [address] PCP - General Family Medicine 07/28/24 Juanito Srinivasan Tubular Products Fabricator 05/10/23 Francisco J Palomino Tubular Products FabricatorWet End Supervisor 05/16/23 Fawad Vargas Tubular Products FabricatorWet End Supervisor 08/11/24 documented as of this encounter
--- OUTSIDE RECORDS SUMMARY | 2025-04-22 13:54 | XMS_ITS | Encounter Summary ---
Author Organization [employer] Address [address] [place] [address] [address] [place] [address] Care Team Providers Care Dock Clerk Name Role Phone Jennifer Sultana NP Primary Care Provider [phone] Reason for Visit * Reason Comments Med Refill Encounter Details Date Type Department Care Team ([facility] Contact Info) Description 04/02/2025 Refill [facility] MEDICINE [address] [place], [place] [phone] Bree Love MD [address] [place], [place] [phone] Spondylosis 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 Social [...] housing situation today? I have christiano cifuentes 03/30/[address] you li ve. Do you have problems with any of the following? None of the above 03/30/2025 Food Insecurity Answer Date Recorded Within the past 12 months, y ou worried that your food would run out before you got money to buy more: Sometimes True 2024 Within the past 12 months,th e food you bought just didn't last and you didn't have enough money to get more: Sometimes True 03/30/2025 Transportation Answer Date Recorded In the past 12 months, has l ack of transportation kept you from medical appts, meetings, work or from getting things needed for daily living? No 03/30/2025 Utilities Answer Date Recorded In the past 12 months, has t he electric, gas, oil or water company threatened to shut off services in your home? No 03/30/2025 Depression Answer Date Recorded Patient Health Questionnaire-2 Score 6 07/28/2024 Internet Access Answer Date Recorded Internet Access Q1 Yes 03/30/2025 Internet Access Q2 Not on file 03/30/2025 Comments Unknown Sex and Gender Information Value [...] Description 05/29/2025 10:30 AM EDT Office Visit [facility] OPTOMETRY [address] [place] [address] Isaiah, Meli, OD [address] [place] [address] 06/01/2025 2:45 PM EDT Office Visit [facility] MEDICINE [address] [place] [address] Jennifer Sultana NP [address] [place] [address] documented as of this encounter Visit Diagnoses Diagnosis Spondylosis 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 documented in this encounter Additional Health Concerns Assessment Noted Time PHQ-9 Depression Total Score: 27 024 2:31 PM EST documented as of this encounter Care Teams Dock Clerk Relationship Specialty Start Date End Date Jennifer Sultana NP [address] [place] [address] PCP - General Family Medicine 07/28/24 Juanito Srinivasan Printing Supervisor 05/10/23 Francisco J Palomino Printing SupervisorBattery Technician 05/16/23 Fawad Vargas Printing SupervisorBattery Technician 08/11/24 documented as of this encounter
--- OUTSIDE RECORDS SUMMARY | 2025-04-22 13:54 | XMS_ITS | Encounter Summary ---
Author Organization [employer] Address [address] [place] [address] [address], [place] [address] Care Team Providers Care Audit Specialist Name Role Phone Jennifer Sultana NP Primary Care Provider [phone] Reason for Visit * Reason Onset Date Comments Referral 03/25/2025 Encounter Details Date Type Department Care Team ([facility] Contact Info) Description 03/25/2025 Telephone [facility] MEDICINE [address] [place], [place] [phone] Jennifer Sultana NP [address] [place] [address] Referral Social History Tobacco Use Types Packs/Day [...] pt who reports that female specialist at [facility] will not see her until she has completed an MRI of the spine. Pt states she is unsure of specialist's name but was advised to send MRI results to [phone]. Pt agrees to appt with Blue team provider next week as she needs time to arrange transportation. * Telephone Encounter - Dionisio Barragan - 03/25/2025 11:59 AM EDT Tc from pt requesting a referral for the MRI. For the spine. Any questions contact pt at [phone] documented in this encounter Plan of Treatment Upcoming Encounters Date Type Department Care Team (Late st Contact Info) Description 05/29/2025 10:30 AM EDT Office Visit [facility] OPTOMETRY [address] [place], [place] [phone] Isaiah, Meli, OD [address] [place] [address] 06/01/2025 2:45 PM EDT Office Visit [facility] MEDICINE [address] [place], [place] [phone] Jennifer Sultana NP [address] [place], [place] [phone] documented as of this encounter Visit Diagnoses Not on filedocumented in this encounter Additional Health Concerns Assessment Noted Time PHQ-9 Depression Total Score: 27 024 2:31 PM EST documented as of this encounter Care Teams Audit Specialist Relationship Specialty Start Date End Date Jennifer Sultana NP [address] [place], [place] [phone] PCP - General Family Medicine 07/28/24 Juanito Srinivasan Stem Setter 05/10/23 Francisco J Palomino Stem SetterClay Dry Press Operator 05/16/23 Fawad Vargas Stem SetterClay Dry Press Operator 08/11/24 documented as of this encounter
--- OUTSIDE RECORDS SUMMARY | 2025-04-22 13:54 | XMS_ITS | Encounter Summary ---
Author Organization [employer] Address [address] [facility] 7t [place] [address] Care Team Providers Care Promotions Producer Name Role Phone Jennifer Sultana NP Primary Care Provider [phone] Reason for Visit * Reason Comments Med Refill Encounter Details Date Type Department Care Team ([facility] Contact Info) Description 02/19/2025 Refill [facility] MEDICINE [address] [place], [place] [phone] Jennifer Sultana NP [address] [place] [address] Spondylosis 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 Social [...] Description 05/29/2025 10:30 AM EDT Office Visit [facility] OPTOMETRY [address] [place] [address] Isaiah, Meli, OD [address] [place] [address] 06/01/2025 2:45 PM EDT Office Visit [facility] MEDICINE [address] [place] [address] Jennifer Sultana NP [address] [place] [address] documented as of this encounter Visit Diagnoses Diagnosis Spondylosis 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 documented in this encounter Additional Health Concerns Assessment Noted Time PHQ-9 Depression Total Score: 27 024 2:31 PM EST documented as of this encounter Care Teams Promotions Producer Relationship Specialty Start Date End Date Jennifer Sultana NP [address] [place] [address] PCP - General Family Medicine 07/28/24 Juanito Srinivasan Messenger Floorperson 05/10/23 Francisco J Palomino Messenger FloorpersonAviation Operations Specialist 05/16/23 aFwad Vargas Messenger FloorpersonAviation Operations Specialist 08/11/24 documented as of this encounter
--- OUTSIDE RECORDS SUMMARY | 2025-04-22 13:54 | XMS_ITS | Encounter Summary ---
Author Organization [employer] Address [address] [place] [address] [address] [place] [address] Care Team Providers Care Counterintelligence Agent Name Role Phone Jennifer Sultana NP Primary Care Provider [phone] Reason for Visit * Reason Onset Date Comments PT1 01/30/2025 Encounter Details Date Type Department Care Team ([facility] Contact Info) Description 01/30/2025 Telephone [facility] MEDICINE [address] [place], [place] [phone] Jennifer Sultana NP [address] [place] [address] PT1 Social History Tobacco Use Types Packs/Day [...] encounter Miscellaneous Notes * Telephone Encounter - Carmen Flynn - 01/30/2025 3:11 PM EDT Patient calling requesting PT1 Home Address verified: Y/N: Yes Provider name or facility name: [address] [place] [address] Escort needed: Y/N: Yes Do you have a wheelchair: Y/N: No If yes- Manual or electric: n/a Visits: 3 X month documented in this encounter Plan of Treatment Upcoming Encounters Date Type Department Care Team (Late st Contact Info) Description 05/29/2025 10:30 AM EDT Office Visit [facility] OPTOMETRY [address] [place] [address] Meli Colon, OD [address] [place] [address] 06/01/2025 2:45 PM EDT Office Visit [facility] MEDICINE [address] [place] [address] Jennifer Sultana, [place] [address] [place] [address] documented as of this encounter Visit Diagnoses Not on filedocumented in this encounter Additional Health Concerns Assessment Noted Time PHQ-9 Depression Total Score: 27 024 2:31 PM EST documented as of this encounter Care Teams Counterintelligence Agent Relationship Specialty Start Date End Date Jennifer Sultana NP [address] [place] [address] PCP - General Family Medicine 07/28/24 Juanito rSinivasan Sorting Machine Attendant 05/10/23 Francisco J Palomino Sorting Machine AttendantLink Trainer Maintenance Man 05/16/23 Fawad Vargas Sorting Machine AttendantLink Trainer Maintenance Man 08/11/24 documented as of this encounter
--- OUTSIDE RECORDS SUMMARY | 2025-04-22 13:54 | XMS_ITS | Encounter Summary ---
Demographics Address [address] [facility] [address] [place] [address] Mobile Phone Home Phone Work Phone Email Address Preferred Language en Marital Status Anglican Affiliation Unknown Race White Ethnic Group Unknown Author Organization [employer] Address [address] [place] [address] [address] [place] [address] Care Team Providers Care Plywood Layup Line Back Feeder Name Role Phone Ju Khan ANP Primary Care Provider [phone] Jennifer Sultana CNC MILLING MACHINIST Primary Care Provider [phone] Reason for Visit * Reason Onset Date Comments PT-1 02/25/2024 Encounter Details Date Type Department Care Team ([facility] st Contact Info) Description 02/25/2024 Telephone [facility] MEDICINE [address] [place], [place] [phone] Ju Khan ANP [address] [place], [place] [phone] PT-1 Social History Tobacco Use Types Packs/Day [...] Y/N: Yes Provider name or facility name: [facility] Facility Address: [address] [place] [address] Escort needed: Y/N: No Do you have a wheelchair: Y/N: No If yes- Manual or electric: n/a Visits: 1x per week documented in this encounter Plan of Treatment Upcoming Encounters Date Type Department Care Team ([facility] Contact Info) Description 05/29/2025 10:30 AM EDT Office Visit [facility] OPTOMETRY [address] [place] [address] Meli Colon, OD [address] [place] [address] 06/01/2025 2:45 PM EDT Office Visit [facility] MEDICINE [address] [place], [place] [phone] Jennifer Sultana, BRENTON [address] [place], [place] [phone] documented as of this encounter Visit Diagnoses Not on filedocumented in this encounter Additional Health Concerns Assessment Noted Time PHQ-9 Depression Total Score: 9 12/01/19 23 10:12 AM EDT documented as of this encounter Care Teams Plywood Layup Line Back Feeder Relationship Specialty Start Date End Date Ju Khan ANP [address] [place], [place] [phone] PCP - General Family Medicine 03/20/22 07/27/24 Jennifer Sultana NP [address] [place], [place] [phone] PCP - General Family Medicine 07/28/24 Juanito Srinivasan Pocket Marker 05/10/23 Francisco J Palomino Pocket MarkerCurb Attendant 05/16/23 Fawad Vargas Pocket MarkerCurb Attendant 08/11/24 documented as of this encounter
--- OUTSIDE RECORDS SUMMARY | 2025-04-22 13:54 | XMS_ITS | Encounter Summary ---
Author Organization [employer] Address [address] [facility] [address] [place] [address] Care Team Providers Care Apple Sorter Name Role Phone Jennifer Sultana NP Primary Care Provider [phone] Reason for Visit * Reason Comments Med Refill Encounter Details Date Type Department Care Team ([facility] Contact Info) Description 04/20/2025 Refill [facility] MEDICINE [address] [place], [place] [phone] Jennifer Sultana NP [address] [place] [address] Gastroesophageal reflux disease, unspecified whether esophagitis present Social History Tobacco Use Types Packs/Day Years Used Date Smoking Tobacco: Some Days Cigarettes Passive Smoke Exposure: Current Smokeless Tobacco: Current Alcohol Use Standard Drinks/Week Comments Not Currently [...] Description 05/29/2025 10:30 AM EDT Office Visit [facility] OPTOMETRY [address] [place] [address] Isaiah, Meli, OD [address] [place] [address] 06/01/2025 2:45 PM EDT Office Visit [facility] MEDICINE [address] [place] [address] Jennifer Sultana NP [address] [place] [address] documented as of this encounter Visit Diagnoses Diagnosis Gastroesophageal reflux disease, unspecified whether esophagitis present documented in this encounter Additional Health Concerns Assessment Noted Time PHQ-9 Depression Total Score: 27 024 2:31 PM EST documented as of this encounter Care Teams Apple Sorter Relationship Specialty Start Date End Date Jennifer Sultana NP [address] [place] [address] PCP - General Family Medicine 07/28/24 Juanito Srinivasan Chemical Laboratory Scientist 05/10/23 Francisco J Palomino Chemical Laboratory ScientistTile Mechanic Helper 05/16/23 Fawad Vargas Chemical Laboratory ScientistTile Mechanic Helper 08/11/24 documented as of this encounter
--- OUTSIDE RECORDS SUMMARY | 2025-04-22 13:54 | XMS_ITS | Encounter Summary ---
Author Organization [employer] Address [address] [place] [address] 7 [place] [address] Care Team Providers Care Gin Pole Operator Name Role Phone Ju Khan ANP Primary Care Provider [phone] Jennifer Sultana NP Primary Care Provider [phone] Reason for Visit * Reason Onset Date Comments PT1 06/19/2023 Encounter Details Date Type Department Care Team ([facility] Contact Info) Description 06/19/2023 Telephone [facility] MEDICINE [address] [place], [place] [phone] Ju Khan ANP [address] [place], [place] [phone] PT1 Social History Tobacco Use Types Packs/Day [...] / denial letter via mail. PT-1 Request [id number] Authorized - [address] [address] Wrote called and spoke with pt regarding PT1. [facility] PT1 is good through October 2023 & [facility] Pulmonology is good through 01/2024. Pt just needed [facility] * Telephone Encounter - Lupis Cano - 06/19/2023 2:15 PM EDT Tc from pt requesting PT1 renewal Date: n/a Time: n/a Visits: n/a Address: [address] [place] [address] willi [place] Facility: [facility] pul[facility] Wheel Chair: no, cane Experimental Plastics Fabricator Needed: no Date: 07/04 Time: 12 PM Visits: n/a Address: [address] [place] [address] Willi Wilson [place] Facility: [facility] Gastroenterology Wheel Chair: no, cane Experimental Plastics Fabricator Needed: no documented in this encounter Plan of Treatment Upcoming Encounters Date Type Department Care Team (Late st Contact Info) Description 05/29/2025 10:30 AM EDT Office Visit [facility] OPTOMETRY [address] [place] [address] Meli Colon, OD [address] [place], [place] [phone] 06/01/2025 2:45 PM EDT Office Visit [facility] MEDICINE [address] [place] [address] Jennifer Sultana, BRENTON [address] [place] [address] documented as of this encounter Visit Diagnoses Not on filedocumented in this encounter Additional Health Concerns Assessment Noted Time PHQ-9 Depression Total Score: 9 12/01/19 23 10:12 AM EDT documented as of this encounter Care Teams Gin Pole Operator Relationship Specialty Start Date End Date Ju Khan ANP [address] [place] [address] PCP - General Family Medicine 03/20/22 07/27/24 Jennifer Sultana NP [address] [place], [place] [phone] PCP - General Family Medicine 07/28/24 Juanito Srinivasan Shipping And Receiving Material Handler 05/10/23 Francisco J Palomino Shipping And Receiving Material HandlerBenefits Coordinator 05/16/23 Fawad Vargas Shipping And Receiving Material HandlerBenefits Coordinator 08/11/24 documented as of this encounter
--- OUTSIDE RECORDS SUMMARY | 2025-04-22 13:54 | XMS_ITS | Encounter Summary ---
Author Organization [employer] Address [address] [place] [address] 7 [place] [address] Care Team Providers Care Cigar Binder Name Role Phone Ju Khan ANP Primary Care Provider Jennifer Sultana NP Primary Care Provider [phone] Reason for Visit * Reason Comments Med Refill Encounter Details Date Type Department Care Team ([facility] st Contact Info) Description 07/15/2024 Refill [facility] MEDICINE 230 [place], [place] [phone] Ju Khan ANP 230 [place], [place] [phone] Multiple joint pain Social History Tobacco Use [...] 10:30 AM EDT Office Visit [facility] OPTOMETRY [address] [place] [address] IsaiahMeli posey, OD 230 [place] [address] 06/01/2025 2:45 PM EDT Office Visit [facility] MEDICINE [address] [place] [address] Jennifer Sultana NP 230 [place] [address] documented as of this encounter Visit Diagnoses Diagnosis Multiple joint pain Pain in joint, multiple sites documented in this encounter Additional Health Concerns Assessment Noted Time PHQ-9 Depression Total Score: 3 04/04/20 1:48 PM EDT documented as of this encounter Care Teams Cigar Binder Relationship Specialty Start Date End Date Ju Khan ANP 230 [place] [address] PCP - General Family Medicine 03/20/22 07/27/24 Jennifer Sultana NP [address] [place] [address] PCP - General Family Medicine 07/28/24 Juanito Srinivasan Firmware Software Verification Engineer 05/10/23 Francisco J Palomino Firmware Software Verification EngineerEnglish Faculty Member 05/16/23 Fawad Vargas Firmware Software Verification EngineerEnglish Faculty Member 08/11/24 documented as of this encounter
--- OUTSIDE RECORDS SUMMARY | 2025-04-22 13:54 | XMS_ITS | Encounter Summary ---
Author Organization [employer] Address [address] [place] [address] 7 [place] [address] Care Team Providers Care Software Test Specialist Name Role Phone Jennifer Sultana NP Primary Care Provider [phone] Reason for Visit * Reason Onset Date Comments PT1 03/25/2025 Encounter Details Date Type Department Care Team ([facility] Contact Info) Description 03/25/2025 Telephone [facility] MEDICINE 230 [place], [place] [phone] Jennifer Sultana NP 230 [place] [address] PT1 Social History Tobacco Use Types Packs/Day [...] encounter Miscellaneous Notes * Telephone Encounter - Dionisio Barragan - 03/25/2025 11:56 AM EDT Patient calling requesting PT1 Home Address verified: Y/N: Yes Provider name or facility name: [address] [place] [address] Escort needed: Y/N: Yes Do you have a wheelchair: Y/N: No Visits: (2x) documented in this encounter Plan of Treatment Upcoming Encounters Date Type Department Care Team (Late st Contact Info) Description 05/29/2025 10:30 AM EDT Office Visit [facility] OPTOMETRY [address] [place] [address] Meli Colon, OD 230 [place] [address] 06/01/2025 2:45 PM EDT Office Visit [facility] MEDICINE 230 [place] [address] Jennifer Sultana, BRENTON 230 [place] [address] documented as of this encounter Visit Diagnoses Not on filedocumented in this encounter Additional Health Concerns Assessment Noted Time PHQ-9 Depression Total Score: 27 024 2:31 PM EST documented as of this encounter Care Teams Software Test Specialist Relationship Specialty Start Date End Date Jennifer Sultana NP 230 [place] [address] PCP - General Family Medicine 07/28/24 Juanito Srinivasan Him Specialists 05/10/23 Francisco J Palomino Him SpecialistsAssistant Restaurant General Manager 05/16/23 Fawad Vargas Him SpecialistsAssistant Restaurant General Manager 08/11/24 documented as of this encounter
--- OUTSIDE RECORDS SUMMARY | 2025-04-22 13:54 | XMS_ITS | Encounter Summary ---
Author Organization [employer] Address [address] [place] [address] 7 [place] [address] Care Team Providers Care Campus President Name Role Phone Jennifer Sultana NP Primary Care Provider [phone] Reason for Visit * Reason Onset Date Comments pt1 01/28/2025 Encounter Details Date Type Department Care Team ([facility] Contact Info) Description 01/28/2025 Telephone [facility] MEDICINE 230 [place], [place] [phone] Jennifer Sultana NP 230 [place] [address] pt1 Social History Tobacco Use Types Packs/Day Years [...] encounter Miscellaneous Notes * Telephone Encounter - Niranjan Romano - 01/28/2025 3:07 PM EDT Patient calling requesting PT1 Home Address verified: Y/N: Yes Provider name or facility name: [address] [facility] [place] [address] Escort needed: Y/N: No Do you have a wheelchair: Y/N: No If yes- Manual or electric: Visits: 1x month Patient calling requesting PT1 Home Address verified: Y/N: Yes Provider name or facility name: [address] [facility] [place] [address] Escort needed: Y/N: No Do you have a wheelchair: Y/N: No If yes- Manual or electric: Visits: 1x a month Patient calling requesting PT1 Home Address verified: Y/N: Yes Provider name or facility name: [address] [place] [address] Escort needed: Y/N: No Do you have a wheelchair: Y/N: No If yes- Manual or electric: Visits: 1x a month Patient calling requesting PT1 Home Address verified: Y/N: Yes Provider name or facility name: [address] [place] [address] Escort needed: Y/N: No Do you have a wheelchair: Y/N: No If yes- Manual or electric: Visits: 1x a month Patient calling requesting PT1 Home Address verified: Y/N: Yes Provider name or facility name: [address] [facility] [address] Escort needed: No Do you have a wheelchair: Y/N: No If yes- Manual or electric: Visits: 2x a month Patient calling requesting PT1 Home Address verified: Y/N: Yes Provider name or facility name: [address] [facility] [address] Escort needed: Y/N: No Do you have a wheelchair: Y/N: No If yes- Manual or electric: Visits: 1x a month Patient calling requesting PT1 Home Address verified: Y/N: Yes Provider name or facility name: [address] [facility] [address] Escort needed: Y/N: No Do you have a wheelchair: Y/N: No If yes- Manual or electric: Visits: 1x every other month documented in this encounter Plan of Treatment Upcoming Encounters Date Type Department Care Team (Late st Contact Info) Description 05/29/2025 10:30 AM EDT Office Visit [facility] OPTOMETRY [address] [place] [address] Meli Colon, OD 230 [place] [address] 06/01/2025 2:45 PM EDT Office Visit [facility] MEDICINE 230 [place] [address] Jennifer Sultana NP 230 [place] [address] documented as of this encounter Visit Diagnoses Not on filedocumented in this encounter Additional Health Concerns Assessment Noted Time PHQ-9 Depression Total Score: 27 024 2:31 PM EST documented as of this encounter Care Teams Campus President Relationship Specialty Start Date End Date Jennifer Sultana NP 230 [place] [address] PCP - General Family Medicine 07/28/24 Juanito Srinivasan Shot Bagger 05/10/23 Francisco J Palomino Shot BaggerEnergy Broker 05/16/23 Fawad Vargas Shot BaggerEnergy Broker 08/11/24 documented as of this encounter
--- OUTSIDE RECORDS SUMMARY | 2025-04-22 13:54 | XMS_ITS | Encounter Summary ---
Author Organization [employer] Address [address] [place] [address] 7 [place] [address] Care Team Providers Care Can Handler Name Role Phone Ju Khan ANP Primary Care Provider [phone] Jennifer Sultana NP Primary Care Provider [phone] Reason for Visit * Reason Onset Date Comments PT1 02/06/2024 Encounter Details Date Type Department Care Team ([facility] Contact Info) Description 02/06/2024 Telephone [facility] MEDICINE 230 [place], [place] [phone] Ju Khan ANP 230 [place], [place] [phone] PT1 Social History Tobacco Use Types Packs/Day [...] Y/N: Yes Provider name or facility name: [facility] Facility Address: [address] [place] [address] Escort needed: Y/N: Yes Do you have [...] Description 05/29/2025 10:30 AM EDT Office Visit [facility] OPTOMETRY [address] [place] [address] Isaiah, Meli, OD [address] [place] [address] 06/01/2025 2:45 PM EDT Office Visit [facility] MEDICINE 230 [place] [address] Jennifer Sultana NP [address] [place] [address] documented as of this encounter Visit Diagnoses Not on filedocumented in this encounter Additional Health Concerns Assessment Noted Time PHQ-9 Depression Total Score: 9 12/01/19 23 10:12 AM EDT documented as of this encounter Care Teams Can Handler Relationship Specialty Start Date End Date Ju Khan ANP [address] [place] [address] PCP - General Family Medicine 03/20/22 07/27/24 Jennifer Sultana NP 230 [place] [address] PCP - General Family Medicine 07/28/24 Juanito Srinivasan Cook Specialty 05/10/23 Francisco J Palomino Cook SpecialtyAir Quality Engineer 05/16/23 Fawad Vargas Cook SpecialtyAir Quality Engineer 08/11/24 documented as of this encounter
--- OUTSIDE RECORDS SUMMARY | 2025-04-22 13:54 | XMS_ITS | Encounter Summary ---
Author Organization [employer] Address [address] [facility] [address] [place] [address] Care Team Providers Care Dip Lube Operator Name Role Phone Jennifer Sultana NP Primary Care Provider Reason for Visit * Reason Onset Date Comments Referral 04/16/2025 Encounter Details Date Type Department Care Team ([facility] Contact Info) Description 04/16/2025 Telephone [facility] MEDICINE 230 [place], [place] [phone] Jennifer Sultana NP 230 [place] [address] Referral Social History Tobacco Use Types Packs/Day [...] Telephone Encounter - Goldie Taylor RN - 04/17/2025 1:24 PM EDT Call returned to pt who reports that Orthopedic surgery at [facility] will not see pt until pcp has ordered a MRI of her lumbar spine. States they will not schedule her until she mails them a disc from the MRI. Advised request will be sent to pcp. * Telephone Encounter - Niranjan Romano - 04/16/2025 1:40 PM EDT Tc from pt requesting a referral to [address], [place] [address] for a MRI for lumbar Contact pt at [phone] documented in this encounter Plan of Treatment Upcoming Encounters Date Type Department Care Team (Late st Contact Info) Description 05/29/2025 10:30 AM EDT Office Visit [facility] OPTOMETRY [address] [place] [address] Isaiah, Meli, OD [address] [place] [address] 06/01/2025 2:45 PM EDT Office Visit [facility] MEDICINE 230 [place] [address] Jennifer Sultana NP [address] [place] [address] documented as of this encounter Visit Diagnoses Not on filedocumented in this encounter Additional Health Concerns Assessment Noted Time PHQ-9 Depression Total Score: 27 024 2:31 PM EST documented as of this encounter Care Teams Dip Lube Operator Relationship Specialty Start Date End Date Jennifer Sultana NP [address] [place], [place] [phone] PCP - General Family Medicine 07/28/24 Juanito Srinivasan Manager Gyn 05/10/23 Francisco J Palomino Manager GynLiving Coach 05/16/23 Fawad Vargas Manager GynLiving Coach 08/11/24 documented as of this encounter
--- OUTSIDE RECORDS SUMMARY | 2025-04-22 13:54 | XMS_ITS | Encounter Summary ---
Author Organization [employer] Address [address] [place] [address] Care Team Providers Care Commanding Officer Traffic Division Name Role Phone Ju Khan Primary Care Provider Jennifer Sultana NP Primary Care Provider [phone] Reason for Referral * Consultation (STAT) - Closed Specialty Diagnoses / Procedures [facility] Referred To Contact Orthopaedic Surgery Diagnoses Other closed fracture of proximal end of right tibia, initial encounter Fry cyst, right Ju Khan ANP 230 [place] [address] Phone: tel: fax: [facility] Orthopedics [address] [place] [address] Phone: tel: Referral ID Status Reason Start Date Expiration Date V isits Requested Visits Authorized [id number] Closed Specialty Services Required 05/05/2024 05/05/2025 3 3 Reason for Visit * Reason Comments Med Refill Encounter Details Date Type Department Care Team (Late st Contact Info) Description 07/03/2024 Refill [facility] MEDICINE 230 [place], [place] [phone] Ju Khan ANP 230 [place], [place] [phone] Other closed fracture of proximal end of [...] Description 05/29/2025 10:30 AM EDT Office Visit [facility] OPTOMETRY [address] [place] [address] Isaiah, Meli, OD [address] [place] [address] 06/01/2025 2:45 PM EDT Office Visit [facility] MEDICINE 230 [place] [address] Jennifer Sultana NP 230 [place] [address] Scheduled Referrals Name Type Priority Associated Diagnoses [...] documented as of this encounter Care Teams Commanding Officer Traffic Division Relationship Specialty Start Date End Date Ju Khan ANP [address] [place] [address] PCP - General Family Medicine 03/20/22 07/27/24 Jennifer Sultana NP [address] [place] [address] PCP - General Family Medicine 07/28/24 Juanito Srinivasan Business Systems Consultant 05/10/23 Francisco J Palomino Business Systems ConsultantCategory Consultant 05/16/23 Fawad Vargas Business Systems ConsultantCategory Consultant 08/11/24 documented as of this encounter
--- OUTSIDE RECORDS SUMMARY | 2025-04-22 13:55 | XMS_ITS | Encounter Summary ---
Author Organization [employer] Address [address] [place] [address] [place] [address] Care Team Providers Care Demo Specialist Name Role Phone Ju Khan ANP Primary Care Provider [phone] Jennifer Sultana DIRECTOR TREASURER Primary Care Provider [phone] Reason for Visit * Reason Onset Date Comments Med Refill 03/22/2023 Encounter Details Date Type Department Care Team ([facility] st Contact Info) Description 03/22/2023 Telephone [facility] MEDICINE 230 [place], [place] [phone] Ju Khan ANP 230 [place], [place] [phone] Med Refill Social History Tobacco Use Types [...] Description 05/29/2025 10:30 AM EDT Office Visit [facility] OPTOMETRY [address] [place] [address] Meli Colon, OD 230 [place] [address] 06/01/2025 2:45 PM EDT Office Visit [facility] MEDICINE 230 [place] [address] Jennifer Sultana, BRENTON 230 [place] [address] documented as of this encounter Visit Diagnoses Not on filedocumented in this encounter Additional Health Concerns Assessment Noted Time PHQ-9 Depression Total Score: 9 12/01/19 23 10:12 AM EDT documented as of this encounter Care Teams Demo Specialist Relationship Specialty Start Date End Date Ju Khan ANP [address] [place] [address] PCP - General Family Medicine 03/20/22 07/27/24 Jennifer Sultana NP 230 [place] [address] PCP - General Family Medicine 07/28/24 Juanito Srinivasan Director Dance 05/10/23 Francisco J Palomino Director DanceSenior Cytotechnologist 05/16/23 Fawad Vargas Director DanceSenior Cytotechnologist 08/11/24 documented as of this encounter
--- OUTSIDE RECORDS SUMMARY | 2025-04-22 13:55 | XMS_ITS | Encounter Summary ---
Author Organization [employer] Address [address] [facility] 7t [place] [address] Care Team Providers Care Party Plan Selling Distributor Name Role Phone Jennifer Sultana NP Primary Care Provider [phone] Encounter Details Date Type Department Care Team ([facility] Contact Info) Description 08/12/2024 Telephone [facility] MEDICINE 230 [place], [place] [phone] Jennifer Sultana NP 230 [place] [address] Social History Tobacco Use Types Packs/Day Years [...] Description 05/29/2025 10:30 AM EDT Office Visit [facility] OPTOMETRY [address] [place] [address] Isaiah, Meli, OD 230 [place] [address] 06/01/2025 2:45 PM EDT Office Visit [facility] MEDICINE [address] [place] [address] Jennifer Sultana NP [address] [place] [address] documented as of this encounter Visit Diagnoses Not on filedocumented in this encounter Additional Health Concerns Assessment Noted Time PHQ-9 Depression Total Score: 27 024 2:31 PM EST documented as of this encounter Care Teams Party Plan Selling Distributor Relationship Specialty Start Date End Date Jennifer Sultana NP 230 [place] [address] PCP - General Family Medicine 07/28/24 Juanito Srinivasan Drop Forger 05/10/23 Francisco J Palomino Drop ForgerSnuff Blender 05/16/23 Fawad Vargas Drop ForgerSnuff Blender 08/11/24 documented as of this encounter
--- OUTSIDE RECORDS SUMMARY | 2025-04-22 13:55 | XMS_ITS | Encounter Summary ---
Author Organization [employer] Address [address] [place] [address] 7 [place] [address] Care Team Providers Care Director Center Name Role Phone Ju Khan ANP Primary Care Provider [phone] Jennifer Sultana CREDIT AUTHORIZER Primary Care Provider [phone] Reason for Visit * Reason Onset Date Comments Referral 06/19/2023 Encounter Details Date Type Department Care Team ([facility] Contact Info) Description 06/19/2023 Telephone [facility] MEDICINE 230 [place], [place] [phone] Ju Khan ANP 230 [place], [place] [phone] Referral Social History Tobacco Use Types Packs/Day [...] from pt requesting a new location for electrical continuity tester referral. Any questions, contact pt at [phone] documented in this encounter Plan of Treatment Upcoming Encounters Date Type Department Care Team (Late st Contact Info) Description 05/29/2025 10:30 AM EDT Office Visit [facility] OPTOMETRY [address] [place] [address] Meli Colon, OD 230 [place] [address] 06/01/2025 2:45 PM EDT Office Visit [facility] MEDICINE 230 [place] [address] Jennifer Sultana NP 230 [place] [address] documented as of this encounter Visit Diagnoses Not on filedocumented in this encounter Additional Health Concerns Assessment Noted Time PHQ-9 Depression Total Score: 9 12/01/19 23 10:12 AM EDT documented as of this encounter Care Teams Director Center Relationship Specialty Start Date End Date Ju Khan ANP 230 [place] [address] PCP - General Family Medicine 03/20/22 07/27/24 Jennifer Sultana NP [address] [place] [address] PCP - General Family Medicine 07/28/24 Juanito Srinivasan President And Cmo 05/10/23 Francisco J Palomino President And CmoMft 05/16/23 Fawad Vargas President And CmoMft 08/11/24 documented as of this encounter
--- OUTSIDE RECORDS SUMMARY | 2025-04-22 13:55 | XMS_ITS | Encounter Summary ---
Author Organization [employer] Address [address] [place] [address] [address] Care Team Providers Care Pediatrician/Medical Doctor Name Role Phone Ju Khan ANP Primary Care Provider [phone] Jennifer Sultana PHYTOPATHOLOGY TEACHER Primary Care Provider [phone] Reason for Visit * Reason Comments Med Refill Encounter Details Date Type Department Care Team (Late Contact Info) Description 05/23/2023 Refill [facility] MEDICINE 230 [place] [address] Ju Khan ANP 230 [place] [address] Multiple joint pain Social History Tobacco Use [...] Encounters Date Type Department Care Team (Late Contact Info) Description 05/29/2025 10:30 AM EDT Office Visit [facility] OPTOMETRY [address] [place], [place] [phone] Meli Colon, OD 230 [place] [address] 06/01/2025 2:45 PM EDT Office Visit [facility] MEDICINE 230 [place] [address] Jennifer Sultana, BRENTON 230 [place], [place] [phone] documented as of this encounter Visit Diagnoses Diagnosis Multiple joint pain Pain in joint, multiple sites documented in this encounter Additional Health Concerns Assessment Noted Time PHQ-9 Depression Total Score: 9 12/01/19 23 10:12 AM EDT documented as of this encounter Care Teams Pediatrician/Medical Doctor Relationship Specialty Start Date End Date Ju Khan ANP 230 [place], [place] [phone] PCP - General Family Medicine 03/20/22 07/27/24 Jennifer Sultana NP 230 [place], [place] [phone] PCP - General Family Medicine 07/28/24 Juanito Srinivasan Band Sawmill Operator 05/10/23 Francisco J Palomino Band Sawmill OperatorRn Pacu 05/16/23 Fawad Vargas Band Sawmill OperatorRn Pacu 08/11/24 documented as of this encounter
--- OUTSIDE RECORDS SUMMARY | 2025-04-22 13:55 | XMS_ITS | Encounter Summary ---
Demographics Address [address] [facility] [address] [place] [address] Mobile Phone Home Phone Work Phone Email Address Preferred Language en Marital Status Restoration Affiliation Unknown Race White Ethnic Group Unknown Author Organization [employer] Address [address] [place] [address] 7t [place] [address] Care Team Providers Care Homeworker Name Role Phone Ju Khan ANP Primary Care Provider [phone] Jennifer Sultana HUMAN RESOURCE ASSISTANT Primary Care Provider [phone] Reason for Visit * Reason Comments Med Refill Encounter Details Date Type Department Care Team (Late st Contact Info) Description 11/07/2023 Refill [facility] MEDICINE 230 [place], [place] [phone] Ju Khan ANP 230 [place], [place] [phone] Spondylosis 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 Social [...] Description 05/29/2025 10:30 AM EDT Office Visit [facility] OPTOMETRY [address] [place] [address] Meli Colon, OD 230 [place] [address] 06/01/2025 2:45 PM EDT Office Visit [facility] MEDICINE 230 [place] [address] Jennifer Sultana NP 230 [place] [address] documented as of this encounter Visit Diagnoses Diagnosis Spondylosis 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 documented in this encounter Additional Health Concerns Assessment Noted Time PHQ-9 Depression Total Score: 9 12/01/19 23 10:12 AM EDT documented as of this encounter Care Teams Homeworker Relationship Specialty Start Date End Date Ju Khan ANP 230 [place] [address] PCP - General Family Medicine 03/20/22 07/27/24 Jennifer Sultana NP [address] [place] [address] PCP - General Family Medicine 07/28/24 Juanito Srinivasan Senior Visual Designer 05/10/23 Francisco J Palomino Senior Visual DesignerAviation Medicine Specialist 05/16/23 Fawad Vargas Senior Visual DesignerAviation Medicine Specialist 08/11/24 documented as of this encounter
--- OUTSIDE RECORDS SUMMARY | 2025-04-22 13:55 | XMS_ITS | Encounter Summary ---
Demographics Address [address] [facility] [address] [place] [address] Mobile Phone Home Phone Work Phone Email Address Preferred Language en Marital Status Sabianist Affiliation Unknown Race White Ethnic Group Unknown Author Organization [employer] Address [address] [place] [address] 7 [place] [address] Care Team Providers Care Family Partner Name Role Phone Ju Khan ANP Primary Care Provider [phone] Jennifer Sultana NP Primary Care Provider [phone] Reason for Visit * Reason Onset Date Comments PT1 06/15/2023 Encounter Details Date Type Department Care Team ([facility] Contact Info) Description 06/15/2023 Telephone [facility] MEDICINE [address] [place], [place] [phone] Ju Khan ANP [address] [place], [place] [phone] PT1 Social History Tobacco Use Types Packs/Day [...] 06/27/2023 Time: 2:45 Visits: 2 monthly Address: [address] [place] [address] Facility: [facility] Wheel Chair: no/cane Process Controls Technician Needed: no & Date: 07/17/2023 Time: 2:00 Visits: 3 monthly Address: [address] [place] [address] Facility: [facility] Wheel Chair: no/cane Process Controls Technician Needed: no documented in this encounter Plan of Treatment Upcoming Encounters Date Type Department Care Team ([facility] st Contact Info) Description 05/29/2025 10:30 AM EDT Office Visit [facility] OPTOMETRY [address] [place] [address] Meli Colon, OD [address] [place] [address] 06/01/2025 2:45 PM EDT Office Visit [facility] MEDICINE [address] [place] [address] Jennifer Sultana NP [address] [place] [address] documented as of this encounter Visit Diagnoses Not on filedocumented in this encounter Additional Health Concerns Assessment Noted Time PHQ-9 Depression Total Score: 9 12/01/19 23 10:12 AM EDT documented as of this encounter Care Teams Family Partner Relationship Specialty Start Date End Date Ju Khan ANP [address] [place] [address] PCP - General Family Medicine 03/20/22 07/27/24 Jennifer Sultana NP [address] [place] [address] PCP - General Family Medicine 07/28/24 Juanito Srinivasan Plastic Machine Operator 05/10/23 Francisco J Palomino Plastic Machine OperatorHuman Relations Professor 05/16/23 Fawad Vargas Plastic Machine OperatorHuman Relations Professor 08/11/24 documented as of this encounter
--- OUTSIDE RECORDS SUMMARY | 2025-04-22 13:55 | XMS_ITS | Encounter Summary ---
Author Organization [facility] Address [address] [facility] [address] [place] [address] Phone Care Team Providers Care Rotary Cutter Name Role Phone Nick Tejada DO Primary Care Provider [phone] Encounter Details Date Type Department Care Team (Late st Contact Info) Description 05/30/2018 Ancillary Orders [facility] [address] [place] [address] Nick Tejada DO [address] [place] [address] Dizziness Social History Tobacco Use Types Packs/Day [...] giddiness documented in this encounter Care Teams Rotary Cutter Relationship Specialty Start Date End Date Nick Tejada DO [address] [place] [address] PCP - General Cardiology 05/29/18 documented as of this encounter Additional Source Comments The information contained in this document represents components of the legal health record. It is not the complete legal health record.[facility]
--- OUTSIDE RECORDS SUMMARY | 2025-04-22 13:55 | XMS_ITS | Clinical Summary ---
Author Organization [facility] Address [address] [place] [address] [place] [address] Phone Care Team Providers Care Linux Network Systems Administrator Name Role Phone Nick Tejada DO Primary Care Provider [phone] Social History Tobacco Use Types Packs/Day Years Used Date Smoking Tobacco: Never Assessed Education Answer Date Recorded Are you interested in more education? Not on marilou e 12/22/2022 Are you concerned about learning? Not on file 12/22/2022 No 12/22/2022 No 12/22/2022 Digital Access Answer Date Recorded No 01/23/2023 No 01/23/2023 No 01/23/2023 Reliable internet access at home? Not on file 01/23/2023 Device with a working camera? Not on file Comments Unknown Sex and Gender Information Value Date Recorded Sex Assigned at Not on file Legal Sex Female 1:11 PM EDT Gender Identity Not on file Sexual Orientation Not on file Plan of Treatment Not on file Medical Devices Not on file Insurance [facility] C3 ACO C3 ACO C[address] [place] [address] [place] [address] C3 ACO ANA MARIA [address] [facility] C3 ACO C3 ACO [facility] C3 [facility] C3 ACO [facility] [place] [id number] Care Teams Linux Network Systems Administrator Relationship Specialty Start Date End Date Nick Tejada DO [address] [place] [id number] PCP - General Cardiology 05/29/18 Additional Source Comments The information contained in this document represents components of the legal health record. It is not the complete legal health record.[facility]
--- OUTSIDE RECORDS SUMMARY | 2025-04-22 13:55 | XMS_ITS | Encounter Summary ---
Author Organization [employer] Address [address] [place] [address] 7t [place] [address] Care Team Providers Care Grape Cutter Name Role Phone Jennifer Sultana NP Primary Care Provider [phone] Reason for Visit * Reason Comments Med Refill Encounter Details Date Type Department Care Team ([facility] Contact Info) Description 08/10/2024 Refill [facility] [address] [place], [place] [phone] Ju Khan, ANP [address] [place] [address] Spondylosis 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 Social [...] 05/29/2025 10:30 AM EDT Office Visit [facility] OPTOMETRY [address] [place] [address] Isaiah, Meli, OD [address] [place] [address] 06/01/2025 2:45 PM EDT Office Visit [facility] [address] [place] [address] Jennifer Sultana NP [address] [place] [address] documented as of this encounter Visit Diagnoses Diagnosis Spondylosis 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 documented in this encounter Additional Health Concerns Assessment Noted Time PHQ-9 Depression Total Score: 27 024 2:31 PM EST documented as of this encounter Care Teams Grape Cutter Relationship Specialty Start Date End Date Jennifer Sultana NP [address] [place] [address] PCP - General Family Medicine 07/28/24 Juanito Srinivasan Sewage Plant Operator 05/10/23 Francisco J Palomino Sewage Plant OperatorHeavy Duty Diesel Mechanic 05/16/23 Fawad Vargas Sewage Plant OperatorHeavy Duty Diesel Mechanic 08/11/24 documented as of this encounter
--- OUTSIDE RECORDS SUMMARY | 2025-04-22 13:55 | XMS_ITS | Encounter Summary ---
Author Organization [employer] Address [address] [place] [address] [address], [place] [address] Care Team Providers Care Browning Processor Name Role Phone Ju Khan ANP Primary Care Provider [phone] Jennifer Sultana CONTENT ENGINEER Primary Care Provider [phone] Reason for Visit * Reason Onset Date Comments PT1 03/09/2023 Encounter Details Date Type Department Care Team ([facility] Contact Info) Description 03/09/2023 Telephone [facility] MEDICINE [address] [place] [address] Ju Khan ANP [address] [place], [place] [phone] PT1 Social History Tobacco Use Types Packs/Day [...] PM EDT PT1 initiated for PSS[facility] in [facility] will send pt a letter with instructions * Telephone Encounter - Lupis Cano - 03/09/2023 1:13 PM EDT Tc from pt requesting a PT1 PT1 Date: TBD Time: TBD Address: [address] [place] [address] Specialty: radiculopathy Facility: [facility] Hazardous Materials Waste Technician: no Wheelchair: no, cane documented in this encounter Plan of Treatment Upcoming Encounters Date Type Department Care Team (Late st Contact Info) Description 05/29/2025 10:30 AM EDT Office Visit [facility] OPTOMETRY [address] [place] [address] Meli Colon, OD [address] [place] [address] 06/01/2025 2:45 PM EDT Office Visit [facility] MEDICINE [address] [place] [address] Jennifer Sultana NP [address] [place] [address] documented as of this encounter Visit Diagnoses Not on filedocumented in this encounter Additional Health Concerns Assessment Noted Time PHQ-9 Depression Total Score: 9 12/01/19 23 10:12 AM EDT documented as of this encounter Care Teams Browning Processor Relationship Specialty Start Date End Date Ju Khan ANP [address] [place] [address] PCP - General Family Medicine 03/20/22 07/27/24 Jennifer Sultana NP [address] [place] [address] PCP - General Family Medicine 07/28/24 Juanito Srinivasan Music Composer 05/10/23 Francisco J Palomino Music ComposerMotorcycle Repair Shop Supervisor 05/16/23 Fawad Vargas Music ComposerMotorcycle Repair Shop Supervisor 08/11/24 documented as of this encounter
--- OUTSIDE RECORDS SUMMARY | 2025-04-22 13:55 | XMS_ITS | Encounter Summary ---
Author Organization [employer] Address [address] [place] [address] [address] [place] [address] Care Team Providers Care Crystallizer Operator Name Role Phone Jennifer Sultana NP Primary Care Provider [phone] Reason for Visit * Reason Onset Date Comments Reschedule 08/22/2024 Encounter Details Date Type Department Care Team ([facility] Contact Info) Description 08/22/[address] [facility] MEDICINE [address] [place] [address] Jennifer Sultana NP [address] [place] [address] Reschedule Social History Tobacco Use Types Packs/Day [...] Description 05/29/2025 10:30 AM EDT Office Visit [facility] OPTOMETRY [address] [place] [address] Meli Colon, OD [address] [place] [address] 06/01/2025 2:45 PM EDT Office Visit [facility] MEDICINE [address] [place] [address] Jennifer Sultana NP [address] [place] [address] documented as of this encounter Visit Diagnoses Not on filedocumented in this encounter Additional Health Concerns Assessment Noted Time PHQ-9 Depression Total Score: 27 024 2:31 PM EST documented as of this encounter Care Teams Crystallizer Operator Relationship Specialty Start Date End Date Jennifer Sultana NP [address] [place] [address] PCP - General Family Medicine 07/28/24 Juanito Srinivasan Gauge Machine Operator 05/10/23 Francisco J Palomino Gauge Machine OperatorConfectionery Cooker 05/16/23 Fawad Vargas Gauge Machine OperatorConfectionery Cooker 08/11/24 documented as of this encounter
--- OUTSIDE RECORDS SUMMARY | 2025-04-22 13:55 | XMS_ITS | Encounter Summary ---
Author Organization [email or web address] Address [address] [place] [address] 7 [place] [address] Care Team Providers Care Motorcoach Operator Name Role Phone Ju Khan ANP Primary Care Provider [phone] Jennifer Sultana NP Primary Care Provider [phone] Reason for Visit * Reason Onset Date Comments PT1 06/18/2023 Encounter Details Date Type Department Care Team ([facility] Contact Info) Description 06/18/2023 Telephone [facility] MEDICINE [address] [place], [place] [phone] Ju Khan ANP [address] [place], [place] [phone] PT1 Social History Tobacco Use Types Packs/Day [...] 2:19 PM EDT PT1 Name of facility: [facility] Specialty: Follow up with PCP Location: [address] [place] [address] Date: 07/02/2023 Time: 3:00 pm fax: [phone] wheelchair: NO Insulation Board Calender Operator: NO Visits: Pt states for all future appts documented in this encounter Plan of Treatment Upcoming Encounters Date Type Department Care Team (Late st Contact Info) Description 05/29/2025 10:30 AM EDT Office Visit [facility] OPTOMETRY [address] [place] [address] Meli Colon, AVELINO [address] [place] [address] 06/01/2025 2:45 PM EDT Office Visit [facility] MEDICINE [address] [place] [address] Jennifer Sultana [place] [address] [place] [address] documented as of this encounter Visit Diagnoses Not on filedocumented in this encounter Additional Health Concerns Assessment Noted Time PHQ-9 Depression Total Score: 9 12/01/19 23 10:12 AM EDT documented as of this encounter Care Teams Motorcoach Operator Relationship Specialty Start Date End Date Ju Khan ANP [address] [place] [address] PCP - General Family Medicine 03/20/22 07/27/24 Jennifer Sultana NP [address] [place] [address] PCP - General Family Medicine 07/28/24 Juanito Srinivasan Boring Machine Operator Helper 05/10/23 Francisco J Palomino Boring Machine Operator HelperBuilding Equipment Operator 05/16/23 Fawad Vargas Boring Machine Operator HelperBuilding Equipment Operator 08/11/24 documented as of this encounter
--- OUTSIDE RECORDS SUMMARY | 2025-04-22 13:55 | XMS_ITS | Encounter Summary ---
Demographics Address [address] [facility] [address] [place] [address] Mobile Phone Home Phone Work Phone Email Address Preferred Language en Marital Status Rastafari Affiliation Unknown Race White Ethnic Group Unknown Author Organization [employer] Address [address] [place] [address] 7t [place] [address] Care Team Providers Care Product Support Specialist Name Role Phone Ju Khan ANP Primary Care Provider Jennifer Sultana NP Primary Care Provider [phone] Reason for Visit * Reason Comments Med Refill Encounter Details Date Type Department Care Team ([facility] st Contact Info) Description 10/28/[address] [facility] MEDICINE [address] [place], [place] [phone] Ju Khan ANP [address] [place], [place] [phone] Multiple joint pain Social History Tobacco Use [...] Description 05/29/2025 10:30 AM EDT Office Visit [facility] OPTOMETRY [address] [place] [address] Isaiah, Meli, OD [address] [place] [address] 06/01/2025 2:45 PM EDT Office Visit [facility] MEDICINE [address] [place] [address] Jennifer Sultana NP [address] [place] [address] documented as of this encounter Visit Diagnoses Diagnosis Multiple joint pain Pain in joint, multiple sites documented in this encounter Additional Health Concerns Assessment Noted Time PHQ-9 Depression Total Score: 9 12/01/19 23 10:12 AM EDT documented as of this encounter Care Teams Product Support Specialist Relationship Specialty Start Date End Date Ju Khan ANP [address] [place] [address] PCP - General Family Medicine 03/20/22 07/27/24 Jennifer Sultana NP [address] [place] [address] PCP - General Family Medicine 07/28/24 Juanito Srinivasan Information Assurance Officer 05/10/23 Francisco J Palomino Information Assurance OfficerLaboratory Assistant 05/16/23 Fawad Vargas Information Assurance OfficerLaboratory Assistant 08/11/24 documented as of this encounter
--- OUTSIDE RECORDS SUMMARY | 2025-04-22 13:55 | XMS_ITS | Clinical Summary ---
Author Organization [employer] Address [address] [place] [address] [address] [place] [address] Care Team Providers Care Program Supervisor Name Role Phone Jennifer Sultana NP [...] BY MOUTH ONCE DAILY 4 g 3 Active albuterol (Ventolin HFA) 108 (90 Base) MCG/ACT inhaler INHALE 2 PUFFS BY MOUTH EVERY 4 TO 6 HOURS NEEDED FOR SHORTNESS OF BREATH 18 g 1 023 Active sertraline (Zoloft) 100 MG tablet TAKE 2 TABLETS BY MOUTH ONCE DAILY IN THE MORNING 180 tablet Active cyclobenzaprine (Flexeril) 5 MG tabletIndications :Chronic pain syndrome TAKE 1 TABLET BY MOUTH AT BEDTIME NEEDED FOR PAIN 30 tablet 1 Active furosemide (Lasix) 20 MG tablet Take [...] NOSTRIL IN THE MORNING 48 g Active ondansetron (Zofran) 4 MG tablet Take 1 tablet (4 mg) by mouth if needed each day for nausea or vomiting. 10 tablet 024 2024 Active famotidine (Pepcid) 20 MG tabletIndications :Stage 3a chronic kidney disease (CMS/HCC) Take 1 tablet (20 mg) by mouth Once per day. 30 tablet 11 024 2024 Active metoprolol tartrate (Lopressor) 25 MG tablet TAKE 1/2 TABLET BY MOUTH TWICE DAILY IN THE MORNING AND EVENING 90 tablet 3 024 Active Fiber-Lax 625 MG tablet TAKE 1 TABLET BY MOUTH EVERY MORNING 90 tablet 3 025 Active folic acid (Folvite) 1 MG tablet TAKE 1 TABLET BY MOUTH EVERY MORNING 90 tablet 1 025 Active rosuvastatin (Crestor) 10 MG tabletIndications :Mixed hyperlipidemia TAKE 1 TABLET BY MOUTH EVERY MORNING 90 tablet 1 025 Active docusate sodium (Colace) 100 MG capsule TAKE 1 CAPSULE BY MOUTH TWICE DAILY IN THE MORNING AND IN THE EVENING 180 capsule 3 025 Active senna (Senokot) 8.6 MG tablet TAKE 2 TABLETS BY MOUTH EVERY DAY AT BEDTIME FOR CONSTIPATION 180 tablet 1 025 Active verapamil ER (Verelan) 120 MG 24 hr capsule TAKE 1 CAPSULE BY MOUTH EVERY EVENING 90 capsule 025 Active pregabalin (Lyrica) 75 MG capsuleIndication s:Spondylosis 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 TAKE 1 CAPSULE BY MOUTH THREE TIMES DAILY IN THE MORNING, EVENING, AND BEDTIME 90 capsule 025 Active SUMAtriptan (Imitrex) 25 MG tabletIndications :Nonintractable chronic migraine Take 1 tablet (25 mg) by mouth 1 (one) time if needed for migraine for up to 1 dose. May repeat dose once in 2 hours if no relief. Do not exceed 2 doses in 24 hours. 9 tablet 025 Active topiramate (Topamax) 25 MG tabletIndications :Nonintractable chronic migraine Take 1 tablet (25 mg) by mouth Once per day. After 1 week, May increase to 2 tablets (50mg) if tolerated 30 tablet 11 025 2025 Active pantoprazole (ProtoNix) 40 MG EC tabletIndications :Gastroesophageal reflux disease, unspecified whether esophagitis present TAKE 1 TABLET BY MOUTH EVERY MORNING BEFORE BREAKFAST DO NOT BREAK, CRUSH, DISSOLVE OR CHEW 90 tablet 1 025 Active pantoprazole (Protonix) 40 MG EC tabletIndications :Gastroesophageal reflux disease, unspecified whether esophagitis present TAKE 1 TABLET BY MOUTH BEFORE BREAKFAST. DO NOT CRUSH, CHEW OR SPLIT. 90 tablet 1 025 2024 Discontinued pregabalin (Lyrica) 75 MG capsuleIndication s:Spondylosis 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 TAKE 1 CAPSULE BY MOUTH THREE TIMES DAILY IN THE MORNING, EVENING, AND BEDTIME 90 capsule 025 2024 Discontinued Active Problems Problem Noted Date [...] see gastric emptying study 07/2024, severe retention. 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 Denies following with a therapist. -referred to behavioral health 06/12/24 SOB (shortness of breath) 03/19/2023 Assessment & Plan (08/17/2024 12:32 PM EST): Echo ordered Body aches 08/25/2022 04/07/2025 Acute exacerbation of chroni c obstructive airways disease 08/25/2022 11/30/2022 Perichondritis of pinna 05/17/2018 04/0 01/2023 Encounters Date Type Department Care Team Description 04/20/[address] [address] Jennifer Sultana NP Gastroesophageal reflux disease, unspecified whether esophagitis present 04/16/[address] [address] Jennifer Sultana NP Referral 04/10/2025 2:45 PM EDT Office Visit [address] [address] Nerissa Henriquez CNP Nonintractable chronic migraine (Primary Dx); Physiologic anisocoria 04/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 Travel 04/09/[address] [address] Jennifer Sultana NP ER Follow-up 04/09/[address] [address] Jennifer Sultana NP ER Follow-up 04/08/2025 Orders Only GENERIC EXTERNAL DATA DEPARTMENT Provider, Generic External Data 04/06/[address] [address] Bree Love MD Spondylosis 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 04/06/[address] [address] Jennifer Sultana NP chartprep 04/02/[address] [address] Victoria Santos FNP Chart Prep 04/02/[address] [address] Bree Love MD Spondylosis 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 03/30/2025 Patient Outreach [facility] [address] [place] [phone] Jennifer Sultana NP Care Coordination (CHW outreach for SDOH food needs-referral completed /) 03/30/2025 Patient Outreach [address] [phone] Jennifer Sultana NP Pre-visit Planning (SDOH screening positive and Tobacco screening positive) 03/25/2025 Patient Outreach [address] [address] Jennifer Sultana NP Care Coordination (CHW outreach for SDOH PT-1 and food needs-referral completed /) 03/25/[address] [address] Jennifer Sultana NP Referral 03/25/[address] [address] Jennifer Sultana NP PT1 03/09/2025 Refill [facility] [address] [place] [phone] Jennifer Sultana NP Spondylosis 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 02/25/[address] [address] Peyton Roe ID Pe appointment 02/24/[address] [address] Jennifer Sultana, [place] scheduling 02/23/[address] [address] Jennifer Sultana, STEWARD/STEWARDESS [employer]IRD CLASS Chart Prep 02/22/2025 Refill [facility] [address] [place] [phone] Jennifer Sultana NP 02/19/2025 Refill [facility] [address] [place] [phone] Jennifer Sultana NP Spondylosis 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 02/02/2025 Patient Outreach [address] [address] Jennifer Sultana NP Care Coordination (CHW outreach for SDOH PT-1 and food needs-LVM ) 01/30/2025 Telephone [facility] [address] [place] [phone] Jennifer Sultana NP PT1 01/30/2025 Telephone [facility] [address] [place] [phone] Jennifer Sultana, [place] Referral 01/28/2025 Patient Outreach [address] [phone] Jennifer Sultana NP Care Coordination (CHW outreach for SDOH PT-1 and food need-LVM ) 01/28/[address] [address] Jennifer Sultana NP pt1 01/25/[address] [phone] Manolo Garcia ANP from Last 3 Months Immunizations Immunization Administration Dates Next Due Influenza injectable quadriv [...] Passive Smoke Exposure: Current Smokeless Tobacco: Current Tobacco Cessation:Ready to Q uit: Not Asked; Counseling Given: Not Answered Alcohol Use Standard Drinks/Week [...] Sign Reading Time Taken Comments Blood Pressure 98/72 04/10/2025 2:54 PM EDT Pulse 83 04/10/2025 2:54 PM EDT Temperature 36.8 C (98.2 F) 04/10/2025 2:54 PM EDT Respiratory Rate 18 04/10/2025 2:54 PM EDT Oxygen Saturation 98% 04/10/2025 2:54 PM EDT Inhaled Oxygen Concentration - - Weight 83.5 kg (184 lb) 04/10/2025 2:54 PM EDT Height 165.1 cm (5' 5 ) 04/10/2025 2:54 PM EDT Body Mass Index 30.62 04/10/2025 2:54 PM EDT Plan of Treatment Upcoming Encounters Date Type Department Care Team (Late st Contact Info) Description 05/29/2025 10:30 AM EDT Office Visit [facility] [address] [place] [address] Meli Colon, OD [address] [place] [address] 06/01/2025 2:45 PM EDT Office Visit [facility] [address] [place] [address] Jennifer Sultana, STEWARD/[employer]ESS [employer] CLASS [address] [place] [address] Health Maintenance Due Date Last Done Comments CT Colonography 1967 FIT DNA/Cologuard 1967 FIT 1967 FOBT 1965 Sigmoidoscopy 1965 Hepatitis A Vaccines (1 of 2 - Risk 2-dose series) 1986 Hepatitis B Vaccines (1 of 3 - 19+ 3-dose series) 1986 Pap Smear 02/11/1988 Colonoscopy 04/12/2021 04/12/2018 Colorectal Cancer Screening 04/12/2021 Cervical Cancer Screening 10/25/2021 HPV/Cotest 10/25/2021 10/25/2016 Depression Monitoring 01/26/2025 07/28/2024, 024 Influenza Vaccine (#1) 2025 , 07/02/2023, 11/11/2020, Additional history exists Mammogram 06/30/2025 06/30/2024, 05/28, 04/04/2023, Additional history exists Alcohol/Substance Use Screening 07/28/2025 07/28/2024 SDOH Screening 03/30/2026 03/30/2025 Disability Screening 04/10/2026 04/10/2025 Tobacco Screening 04/10/2026 04/10/2025 DTaP/Tdap/Td Vaccines (2 - Td or Tdap) [...] Procedure Name Priority Date/Time Associated Diagnosis Comments CTA HEAD NECK W AND WO CONTRAST Routine 04/08/2025 6:12 PM EDT COMPREHENSIVE METABOLIC PANEL Routine 04/08/2025 12:52 PM EDT CBC WITH AUTO DIFFERENTIAL Routine 04/08/2025 12:52 PM EDT BI MAMMOGRAM SCREENING TOMOSYNTHESIS BILATERAL Routine 06/19/2024 1:23 PM EDT LIPID PANEL, STANDARD Routine 05/02/2024 2:55 PM EDT HIV 1/2 ANTIGEN/ANTIBODY, FOURTH GENERATION W/RFL Routine 05/08/2022 2:27 PM EDT HM COLONOSCOPY Routine 04/12/2018 ZZZ HISTORICAL HPV MRNA E6/E7 Routine 10/25/2016 9:30 AM EST from Last 3 Months or Most Recently Relevant to Health Maintenance Results * CTA Head Neck w/ and w/o Contrast (04/08/2025 6:12 PM EDT) Anatomical Region Laterality Modality Head, Neck Computed Tomogra phy 04/08/2025 6:12 PM EDT Narrative 04/08/2025 6:13 PM EDT [address] [address] [address] Scan Report Signed Patient: Cherri Nash MR#: [id number] : 1965 Acct:[id number] Age/Sex: 60 / F ADM Date: 04/08/25 Loc: .ED Attending Dr: Ordering Physician: Bobbi Ríos Date of Service: 04/08/25 Procedure(s): CT angio head neck Accession Number(s): [id number] cc: Jennifer Sultana STEWARD/STEWARDESS THIRD CLASS; Bobbi Ríos Report Number: [id number]: Total DLP = 1381.00 mGy-cm CLINICAL HISTORY: unequal pupils, L>R CT head without contrast. CT angiography head and neck with contrast. 3D Postprocessing. COMPARISON: None provided. FINDINGS: HEAD CT: No intra-axial mass, midline shift, hydrocephalus, or acute hemorrhage. No significant atrophy-like change or white matter disease. The visualized paranasal sinuses and mastoid air cells are normal. The orbits are within normal limits. There is no acute fracture. HEAD AND NECK CTA: Aortic arch and cervical great vessels are patent. Small amount of calcified plaque present at the carotid bulbs bilaterally without significant stenosis. Intracranial arteries are patent. No aneurysm, dissection, or occlusion. No abnormal intracranial enhancement. The visualized thyroid gland is unremarkable. No cervical mass or fluid collection. Emphysema at the partially visualized lung apices. No acute fracture. Mild spondylosis. IMPRESSION: 1. Unremarkable head CT. 2. Patent head and neck CTA. This document has been electronically signed by: Deon Billingsley MD on 04/08/2025 18:12:52 Dictated By: Deon Billingsley MD Signed By: <Electronically signed by Deon Billingsley MD in OV> 04/08/251812 DD/ 11 TD/TT: 04/08/251811 Ornamental Painter: Procedure Note Donotuseinterpreter, Image - 04/08/[address] [place] [address] [address] Scan Report Signed Patient: Cherri Nash JMR#: [id number] : 1965Acct:[id number] Age/Sex: 60 / FADM Date: 04/08/25 Loc: HO.ED Attending Dr: Ordering Physician: Bobbi Ríos Date of Service: 04/08/25 Procedure(s): CT angio head neck Accession Number(s): [id number] cc: Jennifer Sultana STEWARD/STEWARDESS [employer]IRD CLASS; Bobbi Ríos Report Number: [id number]: Total DLP = 1381.00 mGy-cm CLINICAL HISTORY: unequal pupils, L>R CT head without contrast. CT angiography head and neck with contrast. 3D Postprocessing. COMPARISON: None provided. FINDINGS: HEAD CT: No intra-axial mass, midline shift, hydrocephalus, or acute hemorrhage. No significant atrophy-like change or white matter disease. The visualized paranasal sinuses and mastoid air cells are normal. The orbits are within normal limits. There is no acute fracture. HEAD AND NECK CTA: Aortic arch and cervical great vessels are patent. Small amount of calcified plaque present at the carotid bulbs bilaterally without significant stenosis. Intracranial arteries are patent. No aneurysm, dissection, or occlusion. No abnormal intracranial enhancement. The visualized thyroid gland is unremarkable. No cervical mass or fluid collection. Emphysema at the partially visualized lung apices. No acute fracture. Mild spondylosis. IMPRESSION: 1. Unremarkable head CT. 2. Patent head and neck CTA. This document has been electronically signed by: Deon Billingsley MD on 04/08/2025 18:12:52 Dictated By: Deon Billingsley MD Signed By: <Electronically signed by Deon Billingsley MD in OV> 04/08/251812 DD/ 11 TD/TT: 04/08/251811 Ornamental Painter: us [facility] External Provider IMG CT PROCEDURES Final Result * (ABNORMAL) CBC auto differential (04/08/2025 12:52 PM EDT) White Blood Count 10.2 4.8 - 10.8 X10*3/uL [facility] Red Blood Count 4.71 4.20 - 5.50 X10*6/uL [facility] Hemoglobin 13.1 12.0 - 16.0 g/dl [facility] Hematocrit 40.1 37.0 - 47.0 % [facility] Mean Corpuscular Volume 85.1 80.0 - 98.0 fL [facility] Mean Corpuscular Hemoglobin 27.8 27.0 - 33.0 pg [facility] Mean Corpuscular HGB Conc 32.7 31.0 - 35.0 g/dl [facility] Red Cell Distribution Width 15.4 11.0 - 16.0 % [facility] Platelet Count 242 160 - 400 X10*3/uL [facility] Mean Platelet Volume 11.5 9.4 - 12.3 fL [facility] Neutrophils Percent Auto 73.7(H) 45 - 73 % [facility] Imm Gran Pct Auto 0.3 0.0 - 0.4 % [facility] Lymphocytes Percent Auto 15.4(L) 20 - 40 % [facility] Monocytes Percent Auto 6.4 2 - 11 % [facility] Eosinophils Percent Auto 3.5 0 - 4 % [facility] Basophils Percent Auto 0.7 0 - 2 % [facility] NRBC Pct Auto 0.0 0.0 - 0.2 /100WBC [facility] Neutrophils Absolute Auto 7.5 2.0 - 8.3 x10*3/uL [facility] Imm Gran Abs Auto 0.03 0.00 - 0.03 X10*3/uL [facility] Lymphocytes Absolute Auto 1.6 1.2 - 4.9 X10*3/uL [facility] Monocytes Absolute Auto 0.7 0.1 - 1.2 X10*3/uL [facility] Eosinophils Absolute Auto 0.4 0.0 - 0.4 X10*3/uL [facility] Basophils Absolute Auto 0.1 0.0 - 0.2 X10*3/uL [facility] NRBC Abs Auto 0.000 0.0 - 0.012 X10*3/uL [facility] 04/08/2025 12:5 2 PM EDT 04/08/2025 1:16 PM EDT us Generic External Data Provider LAB BLOOD ORDERAB LES Final Result [facility] [address] [place] [address] [phone] * Comprehensive Metabolic Panel (04/08/2025 12:52 PM EDT) Sodium 142 135 - 145 mmol/L [facility] Potassium 3.3 3.3 - 5.1 mmol/L [facility] Chloride 102 96 - 108 mmol/L [facility] Carbon Dioxide 29 22 - 29 mmol/L [facility] Anion Gap 14 12 - 20 [facility] Urea Nitrogen (BUN) 10 9 - 16 mg/dL [facility] Creatinine, Serum 1.06 0.5 - 1.4 mg/dL [facility] Creatinine Clr Calc Pharmacy 58.5 [facility] Comment:Provided height and weight: 165.1 cm,74.8 kg.eGFR (calculated from the MDRD study equation) and eCrCl(calculated from the Cockcroft-Gault equation) are based ondifferent parameters and may not yield comparable results.If eCrCl result is absurd, please check patient'sheight/weight. Estimated Glomerular Filt Rate 53 [facility] Comment:Chronic Kidney Disea se: Estimated GFR < 60 mL/min/1.37y8Ncwzyo Kidney Disease: Estimated GFR < 15 mL/min/1.73m2 Glucose 80 60 - 115 mg/dL [facility] Calcium 10.1 8.4 - 10.2 mg/dL [facility] Bilirubin, Total 0.3 0.0 - 1.0 mg/dL [facility] Aspartate Amino Transferase 17 5 - 31 U/L [facility] Alanine Aminotransferase 9 0 - 31 U/L [facility] Total Protein 7.8 6.5 - 8.0 g/dL [facility] Albumin Level 4.0 3.5 - 5.0 g/dL [facility] Alkaline Phosphatase 99 39 - 117 U/L [facility] 04/08/2025 12:5 2 PM EDT 04/08/2025 1:16 PM EDT us Generic External Data Provider LAB BLOOD ORDERAB LES Final Result Performing Organization Address City/State/[facility] Co de Phone Number [facility] [address] [place] [phone] * BI Mammogram Screening Tomosynthesis Bilateral (06/19/2024 1:23 PM EDT) Anatomical Region Laterality Modality Breast Bilateral Mammography 06/19/2024 1:23 PM EDT Narrative 06/28/2024 10:33 AM EDT [address] [place] [address] Mammography Report Signed Patient: Cherri Nash MR#: [id number] : 1965 Acct:[id number] Age/Sex: 59 / F ADM Date: 06/19/24 Loc: HO.MAMMO Attending Dr: Manolo Garcia NP Ordering Physician: MANOLO GARCIA NP Results: 1Negative Date of Service: 06/19/24 Follow Up: 1 Year From Orig ina Mammogram Procedure(s): MM tomosynthesis screening BI Accession Number(s): [id number] cc: MANOLO GARCIA NP EXAMINATION: MM SCREENING [...] 06/28/24 1030 DD/ 1323 TD/TT: 06/19/24 1336 Ornamental Painter: Procedure Note Donotuseinterpreter, Image - 06/28/2024 [facility] [address] [place] [address] Mammography Report Signed Patient: Cherri Nash JMR#: [id number] : 1965Acct:[id number] Age/Sex: 59 / FADM Date: 06/19/24 Loc: HO.MAMMO Attending Dr: Manolo Garcia NP Ordering Physician: MANOLO GARCIA NPResults: 1Negative Date of Service: 06/19/24Follow Up: 1 Year From Orig inal Mammogram Procedure(s): MM tomosynthesis screening BI Accession Number(s): [id number] cc: MANOLO GARCIA NP EXAMINATION: MM SCREENING [...] 06/28/24 1030 DD/ 1323 TD/TT: 06/19/24 1336 Ornamental Painter: us Manolo Garcia ANP IMG BI PROCEDURES Final Result * (ABNORMAL) Lipid Panel, Standard (05/02/2024 2:55 PM EDT) Triglycerides 286(H) <150 mg/dL [facility] Comment:Desirable Triglyceri de: less than 150 mg/dLBorderline High Triglyceride 150-199 mg/dLHigh Triglyceride: 200-499 mg/dLVery High Triglyceride: greater than or equal to 5OO mg/dL Cholesterol 216(H) <200 mg/dL [facility] Comment:Desirable Cholestero l: less than 200 mg/dLBorderline High Cholesterol: 200-239 mg/dLHigh Cholesterol: greater than 239 mg/dL LDL Cholesterol Calculated 123(H) <100 mg/dL [facility] Comment:Desirable LDL: less than 100 mg/dLNear Optimal/Above Optimal LDL: 110- 129 mg/dLBorderline High LDL: 130-159 mg/dLHigh LDL: 160-189 mg/dLVery High LDL: greater than or equal to 190 mg/dL HDL Cholesterol 36(L) >40 mg/dL [facility] Comment:Desirable HDL: great er than 40 mg/dL Note: This HDL assay may give artificially low results in patients with liver disease. 05/02/2024 2:55 PM EDT 05/02/2024 4:04 PM EDT us Manolo Garcia ANP LAB BLOOD ORDERABLES Final Resul t Performing Organization Address [facility]/ZIP Co de Phone Number [facility] [address] [place] [address] [phone] * HIV 1/2 ANTIGEN/ANTIBODY,FOURTH GENERATION W/RFL (05/08/2022 2:27 PM EDT) Pathologist [facility] HIV-1/2 ANTIGEN AND ANTIBODIES, 4TH GENERATION W/ REFLEX NON-REACT IRON NON-REACT IRON [facility] Comment: HIV-1 antigen and HIV-1/HIV-2 antibodies were not detected. There is no laboratory evidence of HIV infection. PLEASE NOTE: This information has been disclosed to you from records whose confidentiality may be protected by state law. If your state requires such protection, then the state law prohibits you from making any further disclosure of the information without the specific written consent of the person to whom it pertains, or as otherwise permitted by law. A general authorization for the release of medical or other information is NOT sufficient for this purpose. For additional information please refer to http://education.SpectraLinear/faq/ANY329 (This link is being provided for informational/ educational purposes only.) The performance of this assay has not been clinically validated in patients less than 2 years old. 05/08/2022 2:27 PM EDT Manolo Garcia [facility] LAB BLOOD ORDERABLES Final Resul t Performing Organization Address [facility] Co de Phone Number [facility] [address] * Colonoscopy (04/12/2018) [facility] Colonoscopy Normal Normal Historical Provider HEALTH MAINTENANCE Final Result * HPV mRNA E6/E7 (10/25/2016 9:30 AM EST) [facility] HPV mRNA E6/E7 Not Detected NOT DETECTED [facility] Comment: This test was performed using the APTIMA(R) HPV Assay ([employer] This assay detects E6/E7 viral messenger RNA (mRNA) from 14 high-risk HPV types (16,18,31,33,35,39,45,51, 52,56,58,59,66,68). For additional information please refer to: http://education.SpectraLinear/faq/WOF150b1 (This link is being provided for informational/ educational purposes only.) Test Performed by [employer], [facility], [address] [place] [phone] Naif Pereira M.D., Ph.D., Director of Laboratories , [facility] [id number] Please note: Effective 05/08/2016, HPV testing will be performed using [employer] APTIMA test which targets mRNA. Detecting mRNA instead of DNA, as in older methods, offers significant improvements in specificity. 10/25/2016 9:30 AM EST Hazel Corcoran MD HISTORICAL/NON ORDERABLE LABS Final Result Performing Organization Address City/State/[facility] Co de Phone Number [facility] [address] from Last 3 Months or Most Recently Relevant to Health Maintenance [place] [address] [place] [address] C3 Care Teams Program Supervisor Relationship Specialty Start Date End Date Jennifer Sultana NP [address] [place] [phone] PCP - General Family Medicine 07/28/24 Juanito Srinivasan Block Inspector 05/10/23 Francisco J Palomino Block InspectorSales Promotion Manager 05/16/23 Fawad Vargas Block InspectorSales Promotion Manager 08/11/24
--- OUTSIDE RECORDS SUMMARY | 2025-04-22 13:55 | XMS_ITS | Clinical Summary ---
Author Organization [address] [facility] Address [address] [place] [address] Phone Care Team Providers Care Aircraft Lay Out Worker Name Role Phone Jennifer Sultana PRATIK Primary Care Provider [phone] Allergies Active Allergy Reactions Criticality Noted Date [...] PM EDT Office Visit Orthopedic Surgery - [place] [address] [place] [address] [place] [id number] Artie [place], DPM [address] [place] [address] Health Maintenance Due Date Last Done Comments [...] topic Insurance MEDICAID - [place] Care Teams Aircraft Lay Out Worker Relationship Specialty Start Date End Date Jennifer Sultana FNP [address] [place] [phone] PCP - General Nurse Practitioner 08/18/24
== END 2025-04-22 14:32 | disposition home or self-care (01) ==
LOC: HO.HOS 13:13
PROVIDERS: PCP Internal Medicine Nephrology; Visit Provider Physician Assistant
DX: M17.11 Unilateral primary osteoarthritis, right knee (principal)
CPT/HCPCS: 99213

== ENCOUNTER 2025-04-22 13:12 | Outpatient (REF) | payer MEDICAID, SELFPAY ==
--- NOTE | ~2025-04-22 | XR_ITS ---
EXAMINATION: XR KNEE, RIGHT CLINICAL INFORMATION: M17.11 - Unilateral primary osteoarthritis, right knee COMPARISON: 09/03/2024. TECHNIQUE: AP view bilateral knees standing, lateral and patellofemoral views right knee. FINDINGS: LEFT KNEE: Normal imaging appearance. Preserved joint spaces. Normal soft tissues. RIGHT KNEE: No acute fracture, dislocation, or suspicious bone lesion. Healed lateral tibial plateau fracture. Normal knee and patellar alignment. Mild tricompartmental joint space narrowing consistent with osteoarthritis. No evidence of joint effusion. Normal soft tissues. XR/XR knee RT 3V IMPRESSION: 1. No acute bony abnormalities right knee. There is a healed lateral tibial plateau fracture. 2. Early tricompartmental osteoarthritis of the right knee. Electronically signed by: Ke Craig MD 04/22/2025 01:39 PM EDT
== END 2025-04-22 13:13 | disposition home or self-care (01) ==
LOC: HO.HOSX 13:12
PROVIDERS: PCP Internal Medicine Nephrology; Visit Provider Physician Assistant
DX: M17.11 Unilateral primary osteoarthritis, right knee (principal)
CPT/HCPCS: 73562; 99212

== ENCOUNTER → 2025-04-22 13:19 | Outpatient (BNV) | payer MEDICAID, SELFPAY | PROVIDERS: PCP Internal Medicine Nephrology; Visit Provider Radiology Diagnostic Radiology | DX: M17.11 Unilateral primary osteoarthritis, right knee (principal) | CPT/HCPCS: 73562 ==

== ENCOUNTER 2025-06-18 15:24 | Outpatient (AMB) | payer MEDICAID, SELFPAY ==
[2025-06-18 15:25] VITALS: BP 100/48; PULSE 69; BMI 30.4
--- NOTE | 2025-06-18 15:25 | MHC.OFFVIS ---
Vital Signs 06/18/25 15:25 Height 5 ft 5 in Weight 182 lb 15.739 oz BMI 30.4 BP 100/48 L Blood Pressure Location Lt brachial Position Sitting Pulse 69 Pulse Source Pulse Oximeter Intake Visit Reasons: f/up-cta Ict Support Engineer Required: No Accompanied by: Other Relationship Allergies codeine Allergy (Severe, Verified 06/18/25 15:32) Anaphylaxis aspirin Allergy (Mild, Verified 06/18/25 15:32) Hives Penicillins (PENICILLINS) Allergy (Mild, Verified 06/18/25 15:32) HIVES Sulfa (Sulfonamide Antibiotics) Allergy (Mild, Verified 06/18/25 15:32) Hives sulfamethoxazole (From Bactrim) Allergy (Mild, Verified 06/18/25 15:32) inflamed hives, rash, trimethoprim (From Bactrim) Allergy (Mild, Verified 06/18/25 15:32) inflamed hives, rash, amoxicillin (AMOXICILLIN) Allergy (Unknown, Verified 06/18/25 15:32) HIVES albuterol Allergy (Verified 06/18/25 15:32) Hives citalopram (From Celexa) Allergy (Verified 06/18/25 15:32) Hives lamotrigine (From Lamictal) Allergy (Verified 06/18/25 15:32) Hives olanzapine Allergy (Verified 06/18/25 15:32) Hives morphine Adverse Reaction (Mild, Verified 06/18/25 15:32) Itching haloperidol (From Haldol) Adverse Reaction (Verified 06/18/25 15:32) Angioedema Medication List - Last Reconciled 06/18/25 by Jorge Valdivia NP albuterol sulfate 90 mcg/actuation 2 puffs PO Q4-6H PRN cholecalciferol (vitamin D3) 50 mcg PO DAILY clonazepam 2 mg PO TID PRN cyclobenzaprine 5 mg PO ONCE PRN docusate sodium (Colace) 200 mg (2 x 100 mg) PO BEDTIME 30 days folic acid 1 mg PO DAILY folic acid 2 mg PO DAILY furosemide (Lasix) 20 mg PO QAM hydroxyzine HCl 10 mg PO BEDTIME lubiprostone 8 mcg PO BID 30 days methylcellulose (laxative) (Citrucel) 500 mg PO BID 30 days metoprolol tartrate 12.5 mg PO BID mometasone 200 mcg/actuation (Asmanex HFA) 1 puff inhalation BEDTIME polyethylene glycol 3350 (Miralax) 17 grams PO BID 60 days rosuvastatin 10 mg PO QAM simethicone (Gas-X Extra Strength) 125 mg PO BEDTIME PRN 30 days solifenacin (Vesicare) 10 mg PO DAILY theophylline ER 400 mg PO QAM tiotropium-olodaterol 2.5-2.5 mcg/actuation (Stiolto Respimat) 2 puffs PO DAILY verapamil ER 120 mg PO QPM ziprasidone HCl (Geodon) 80 mg PO .DAILY AT BEDTIME HPI Comments Details: This is a 60-year-old female patient coming in for a follow-up visit. Patient with a history of hypertension, chronic kidney disease, COPD, sleep apnea and a smoker who was previously seen in the office for shortness of breath with activity and chest discomfort. Patient was also seen back in 2021 for similar presenting symptoms for which patient was to undergo a stress test however that was never completed. This time patient was ordered a coronary CTA which she completed and is here to review results for it. Today, patient is reporting feeling well overall other than her chronic exertional dyspnea. Patient is denying any exertional chest pain, palpitations, dizziness, orthopnea, PND, leg edema, presyncope or syncope. Patient notes that she has significantly cut down on her smoking from 3 packs a day to occasionally just 3 cigarettes a day. Patient is reporting compliance with all her medications. [facility] Medical History Delayed gastric emptying Hypercalcemia Tearfulness Rhinosinusitis Essential (primary) hypertension Anorexia nervosa, restricting type Blindness of left eye Thoracic back pain Uterine leiomyoma Vitamin D deficiency Visual impairment Stress incontinence of urine Chronic kidney disease, stage 3a Former smoker Rib lesion Recurrent acute sinusitis Raised TSH level Pure hypercholesterolemia Mixed hyperlipidemia Postural dizziness Opioid dependence Muscle pain Multiple joint pain Moderate persistent asthma without complication Lumbar radiculopathy Chronic rhinitis Hepatitis C Blood in urine Asthenia COVID-19 vaccine series completed Bipolar disorder Chronic pain syndrome Disc degeneration, lumbar Spondylosis 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 Chronic constipation Deviated septum Emphysema lung Adenomatous colon polyp Acid reflux Surgical History History of tympanoplasty S/P surgery on nasal septum History of bunionectomy History of tubal ligation History of esophagogastroduodenoscopy (EGD) Hx of colonoscopy Family History Father Brain cancer Mother Ovarian cancer Breast cancer Cervical cancer Social History Household Members: Children Alcohol intake: never Patient Tobacco Use Status: Former Tobacco user Tobacco use type: Cigarette Current occupational status: unemployed Review of Systems Const Denies daytime sleepiness, Denies difficulty sleeping, Denies snoring, Denies stops breathing during sleep and Denies weakness Card Denies chest pain, Denies rapid heart rate, Denies irregular heart rhythm, Denies claudication, Denies leg edema, Denies lightheadedness, Reports palpitations, Reports dyspnea, Denies dyspnea on exertion, Denies orthopnea, Denies paroxysmal nocturnal dyspnea and Denies slow heart rate Resp Denies cough, Reports dyspnea, Denies dyspnea on exertion and Denies snoring GI Reports no additional complaints, Denies hematochezia, Denies change in stool character and Denies dyspepsia Musc Denies abnormal gait, Denies muscle weakness and Denies numbness Neuro Denies abnormal gait, Denies numbness and Denies weakness Endo Reports palpitations Physical Exam Vital Signs: Last Vital Signs Pulse 69 06/18/25 15:25 BP 100/48 L 06/18/25 15:25 BMI result Body Mass Index 30.4 Const General: cooperative, healthy appearing, comfortable and no acute distress Orientation/consciousness: patient oriented x3 HEENT Head: Yes normal to inspection Neck Neck: Yes normal visual inspection, Yes trachea midline and Yes supple Chest Chest palpation & inspection: normal inspection of the chest Resp Effort & Inspection: normal respiratory effort Auscultation: clear to auscultation bilaterally, no crackles, no rales, no rhonchi and no wheezes Cardio Jugular venous distension: no JVD Palpation: normal PMI Rate: regular rate Rhythm: regular rhythm Heart sounds: S1 normal heart sound present, S2 normal heart sound present, no click, no gallops, no murmurs and no rubs Peripheral pulses: Peripheral pulses 2+ throughout GI Inspection: Yes normal to inspection Palpation (GI): Soft to palpation Auscultation: normal bowel sounds Skin General skin exam: no rashes or lesions noted Neuro General: patient oriented x3 Extrem General: Yes normal to inspection, No no pedal edema and No calf tenderness Psych Appearance: grossly normal Mental Status: mental status grossly normal Speech and movement: Normal speech and movement present Assessment & Plan Assessment & Plan (1) Dyspnea on exertion: Code(s): R06.00 - Dyspnea, unspecified Category: Medical Plan: 07/04/2025-patient underwent coronary CTA that showed minimal stenosis of less than 25% of the distal LAD. Noncardiac reading showed 5 mm pleural-based right lung nodule and an 18 x 13 mm soft tissue density abnormality to the right anterior mediastinum. Known pulmonary nodule on previous imaging with pulmonology. We will fax this report to her PCP. Given above findings, less likely for her symptoms to be cardiac etiology. Therefore, no further testing indicated at this time. Patient to continue with her current regimen of rosuvastatin, metoprolol, and verapamil. Ideally, LDL goal closer to 70. Advised to seek ER care in case of exertional chest pain not resolved with rest. (2) Hypertension: Code(s): I10 - Essential (primary) hypertension Category: Medical Qualifiers: Hypertension type: primary hypertension Qualified Code(s): I10 - Essential (primary) hypertension Plan: Blood pressure today is within normal limits. Continue current regimen. Advised monitoring blood pressures at home with a goal less than 130/80. Advised on heart healthy diet, complete smoking cessation, regular exercise, med compliance, and management of vascular risk factors. Follow up on an as-needed basis. In the interim, patient will call the office with any concerns or change in symptoms. This note was generated using voice recognition software. While every effort has been made to ensure accuracy and proper crystal mounter, there may be occasional errors that could affect the content or meaning of the described symptoms. Coding Level of Care Code Est Pt Level 4 (88613) Complex EM visit Add On G2211 Diagnoses Dyspnea on exertion R06.00 Primary hypertension I10 Hypertension type: primary hypertension Time Spent (min) 31 Comment Time spent in reviewing the chart, test results, assessment, counseling and documentation.
--- OUTSIDE RECORDS SUMMARY | 2025-06-18 19:11 | XMS_ITS | Clinical Summary ---
Author Organization [employer] Address [address] [place] [address] [address] [place] [address] Care Team Providers Care Market Consultant Name Role Phone Jennifer Sultana NP [...] Unknown 05/02/2016 Penicillins Hives 02/19/2023 Sulfa Antibiotics Rash,Unknown Low 08/25/2022 Other reaction(s): inflamed hives, rash, [...] once a day NEEDED FOR CONSTIPATION Active ipratropium-albut nitesh (Duo-Neb) 0.5-2.5 mg/3 mL nebulizer solution Take 3 mL by nebulization every 6 (six) hours if needed for wheezing or shortness of breath. Active fluticasone (Flonase) 50 MCG/ACT nasal sprayIndications: Chronic rhinitis USE 1 SPRAY IN EACH NOSTRIL IN THE MORNING 48 g Active famotidine (Pepcid) 20 MG tabletIndications :Stage 3a chronic kidney disease (CMS/HCC) (HCC) Take 1 tablet (20 mg) by mouth Once per day. 30 tablet 11 024 2024 Active metoprolol tartrate (Lopressor) 25 MG tablet TAKE 1/2 TABLET BY MOUTH TWICE DAILY IN THE MORNING AND EVENING 90 tablet 3 Active Fiber-Lax 625 MG tablet TAKE 1 TABLET BY MOUTH EVERY MORNING 90 tablet 3 Active folic acid (Folvite) 1 MG tablet TAKE 1 TABLET BY MOUTH EVERY MORNING 90 tablet 1 Active rosuvastatin (Crestor) 10 MG tabletIndications :Mixed hyperlipidemia TAKE 1 TABLET BY MOUTH EVERY MORNING 90 tablet 1 Active docusate sodium (Colace) 100 MG capsule TAKE 1 CAPSULE BY MOUTH TWICE DAILY IN THE MORNING AND IN THE EVENING 180 capsule 3 Active senna (Senokot) 8.6 MG tablet TAKE 2 TABLETS BY MOUTH EVERY DAY AT BEDTIME FOR CONSTIPATION 180 tablet 1 Active SUMAtriptan (Imitrex) 25 MG tabletIndications :Nonintractable chronic migraine Take 1 tablet (25 mg) by mouth 1 (one) time if needed for migraine for up to 1 dose. May repeat dose once in 2 hours if no relief. Do not exceed 2 doses in 24 hours. 9 tablet Active topiramate (Topamax) 25 MG tabletIndications :Nonintractable [...] OR CHEW 90 tablet 1 025 Active verapamil ER (Verelan) 120 MG 24 hr capsule TAKE 1 CAPSULE BY MOUTH EVERY EVENING 90 capsule 10/06/2 025 Active pregabalin (Lyrica) 75 MG capsuleIndication s:Spondylosis 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 Take 1 capsule (75 mg) by mouth 3 times daily. 90 capsule 025 Active ondansetron (Zofran) 4 MG tablet Take 1 tablet (4 mg) by mouth if needed each day for nausea or vomiting. 10 tablet 024 2024 verapamil ER (Verelan) 120 MG 24 hr capsule TAKE 1 CAPSULE BY MOUTH EVERY EVENING 90 capsule 025 2024 Discontinued pregabalin (Lyrica) 75 MG capsuleIndication s:Spondylosis 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 TAKE 1 CAPSULE BY MOUTH THREE TIMES DAILY IN THE MORNING, EVENING, AND BEDTIME 90 capsule 025 2024 Discontinued(R eorder (will not trigger notification [...] Uterine leiomyoma 04/16/2024 Thoracic back pain 04/16/2024 FILPIE (obstructive sleep apnea) 04/16/2024 History of tubal [...] worsening symptoms. Stage 3a chronic kidney disease (CMS/HCC) 2021 Visual impairment 08/25/2022 Degeneration of lumbar intervertebral [...] 11/06/2016 Pure hypercholesterolemia 09/22/2016 Chronic hepatitis C (CMS/HCC) 09/08/2016 Recurrent major depression in partial remission [...] exacerbation of chroni c obstructive airways disease ([facility]) 08/25/2022 11/30/2022 Perichondritis of pinna 05/17/2018 04/0 01/2023 Encounters Date Type Department Care Team Description 06/16/2025 Refill [facility] [address] [place] [address] Jennifer Sultana NP Spondylosis 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 06/10/2025 Telephone [facility] [address] [place] [address] Jennifer Sultana NP Referral 06/03/[address] [address] Jennifer Sultana NP Durable Medical Equipment 05/31/[address] [address] Jennifer Sultana NP 05/25/2025 Patient Outreach [facility] [address] [place] [address] Jennifer Sultana NP Pre-visit Planning (SDOH unable to reach LVM ) 05/08/2025 Patient Outreach [facility] [address] [place] [address] Jennifer Sultana NP Pre-visit Planning (SDOH unable to reach LVM) 05/08/2025 Telephone [facility] [address] [place] [address] Jennifer Sultana NP Chart Prep 05/07/[address] [address] Jennifer Sultana NP Med Refill 05/05/2025 Refill [facility] [address] [place] [address] Jennifer Sultana NP Spondylosis 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 04/28/[address] [address] Jennifer Sultana NP Error (VOID this visit) 04/20/2025 Refill [facility] [address] [place] [address] Jennifer Sultana NP Gastroesophageal reflux disease, unspecified whether esophagitis present 04/16/[address] [address] Jennifer Sultana NP Referral 04/10/2025 2:45 PM EDT Office Visit [address] [address] Nerissa Henriquez CNP Nonintractable chronic migraine (Primary Dx); Physiologic anisocoria 04/10/2025 Travel 04/09/[address] [address] Jennifer Sultana NP ER Follow-up 04/09/[address] [address] Jennifer Sultana NP ER Follow-up 04/08/2025 Orders Only GENERIC EXTERNAL DATA DEPARTMENT Provider, Generic External Data 04/06/[address] [address] Bree Love MD Spondylosis 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 04/06/[address] [address] Jennifer Sultana NP chartprep 04/02/[address] [address] Victoria Santos FNP Chart Prep 04/02/[address] [address] Bree Love MD Spondylosis 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 03/30/2025 Patient Outreach [address] [address] Jennifer Sultana NP Care Coordination (CHW outreach for SDOH food needs-referral completed /) 03/30/2025 Patient Outreach [address] [address] Jennifer Sultana NP Pre-visit Planning (SDOH screening positive and Tobacco screening positive) 03/25/2025 Patient Outreach [address] [address] Jennifer Sultana, [place] Care Coordination (CHW outreach for SDOH PT-1 and food needs-referral completed /) 03/25/2025 Telephone [facility] [address] [place] [address] Jennifer Sultana, [place] Referral 03/25/2025 Telephone [facility] [address] [place] [address] Jennifer Sultana, [place] PT1 from Last 3 Months Immunizations Immunization Administration [...] Care Team (Late st Contact Info) Description 09/18/2025 1:00 PM EST Office Visit [facility] [address] [place] [address] Meli Colon, OD [address] [place] [address] Health Maintenance Due Date Last Done Comments [...] PM EDT Narrative 04/08/2025 6:13 PM EDT [address] [address] [address] Scan Report Signed Patient: Cherri Nash MR#: [id number] : 1965 Acct:[id number] Age/Sex: 60 / F ADM Date: 04/08/25 Loc: HO.ED Attending Dr: Ordering Physician: Bobbi Ríos Date of Service: 04/08/25 Procedure(s): CT angio head neck Accession Number(s): [id number] cc: Jennifer Sultana MACHINE ROOM OPERATOR; Bobbi Ríos Report Number: [id number]: Total DLP = 1381.00 mGy-cm CLINICAL HISTORY: [...] in OV> 04/08/251812 DD/ 11 TD/TT: 04/08/251811 Nurse Case Manager: Procedure Note Donotuseinterpreter, Image - 04/08/[address] [address] [address] Scan Report Signed Patient: Cherri Nash JMR#: [id number] : 1965Acct:[id number] Age/Sex: 60 / FADM Date: 04/08/25 Loc: HO.ED Attending Dr: Ordering Physician: Bobbi Ríos Date of Service: 04/08/25 Procedure(s): CT angio head neck Accession Number(s): [id number] cc: Jennifer Sultana MACHINE ROOM OPERATOR; Bobbi Ríos Report Number: [id number]: Total DLP = 1381.00 mGy-cm CLINICAL HISTORY: [...] in OV> 04/08/251812 DD/ 11 TD/TT: 04/08/251811 Nurse Case Manager: [facility] External Provider IMG CT PROCEDURES Final Result * (ABNORMAL) CBC auto differential (04/08/2025 12:52 PM EDT) White Blood Count 10.2 4.8 - 10.8 X10*3/uL [facility] Red Blood Count 4.71 4.20 - 5.50 X10*6/uL [facility] Hemoglobin 13.1 12.0 - 16.0 g/dl [facility] Hematocrit 40.1 37.0 - 47.0 % [facility] Mean Corpuscular Volume 85.1 80.0 - 98.0 fL [facility] Mean Corpuscular Hemoglobin 27.8 27.0 - 33.0 pg [facility] Mean Corpuscular HGB Conc 32.7 31.0 - 35.0 g/dl [facility] Red Cell Distribution Width 15.4 11.0 - 16.0 % [facility] Platelet Count 242 160 - 400 X10*3/uL [facility] Mean Platelet Volume 11.5 9.4 - 12.3 fL [facility] Neutrophils Percent Auto 73.7(H) 45 - 73 % [facility] Imm Gran Pct Auto 0.3 0.0 - 0.4 % [facility] Lymphocytes Percent Auto 15.4(L) 20 - 40 % [facility] Monocytes Percent Auto 6.4 2 - 11 % [facility] Eosinophils Percent Auto 3.5 0 - 4 % [facility] Basophils Percent Auto 0.7 0 - 2 % [facility] NRBC Pct Auto 0.0 0.0 - 0.2 /100WBC [facility] Neutrophils Absolute Auto 7.5 2.0 - 8.3 x10*3/uL [facility] Imm Gran Abs Auto 0.03 0.00 - 0.03 X10*3/uL [facility] Lymphocytes Absolute Auto 1.6 1.2 - 4.9 X10*3/uL [facility] Monocytes Absolute Auto 0.7 0.1 - 1.2 X10*3/uL [facility] Eosinophils Absolute Auto 0.4 0.0 - 0.4 X10*3/uL [facility] Basophils Absolute Auto 0.1 0.0 - 0.2 X10*3/uL [facility] NRBC Abs Auto 0.000 0.0 - 0.012 X10*3/uL [facility] 04/08/2025 12:5 2 PM EDT 04/08/2025 1:16 PM EDT us Generic External Data Provider LAB BLOOD ORDERAB LES Final Result [facility] [address] [place] [address] [phone] * Comprehensive Metabolic Panel (04/08/2025 12:52 PM EDT) Sodium 142 135 - 145 mmol/L [facility] Potassium 3.3 3.3 - 5.1 mmol/L [facility] Chloride 102 96 - 108 mmol/L [facility] Carbon Dioxide 29 22 - 29 mmol/L [facility] Anion Gap 14 12 - 20 [facility] Urea Nitrogen (BUN) 10 9 - 16 mg/dL [facility] Creatinine, Serum 1.06 0.5 - 1.4 mg/dL [facility] Creatinine Clr Calc Pharmacy 58.5 [facility] Comment:Provided height and weight: 165.1 cm,74.8 kg.eGFR (calculated from the MDRD study equation) and eCrCl(calculated from the Cockcroft-Gault equation) are based ondifferent parameters and may not yield comparable results.If eCrCl result is absurd, please check patient'sheight/weight. Estimated Glomerular Filt Rate 53 [facility] Comment:Chronic Kidney Disea se: Estimated GFR < 60 mL/min/1.26e6Ybiofm Kidney Disease: Estimated GFR < 15 mL/min/1.73m2 Glucose 80 60 - 115 mg/dL [facility] Calcium 10.1 8.4 - 10.2 mg/dL [facility] Bilirubin, Total 0.3 0.0 - 1.0 mg/dL [facility] Aspartate Amino Transferase 17 5 - 31 U/L [facility] Alanine Aminotransferase 9 0 - 31 U/L [facility] Total Protein 7.8 6.5 - 8.0 g/dL [facility] Albumin Level 4.0 3.5 - 5.0 g/dL [facility] Alkaline Phosphatase 99 39 - 117 U/L [facility] 04/08/2025 12:5 2 PM EDT 04/08/2025 1:16 PM EDT us Generic External Data Provider LAB BLOOD ORDERAB LES Final Result [facility] [address] [place] [address] [phone] * BI Mammogram Screening Tomosynthesis Bilateral (06/19/2024 1:23 PM EDT) Anatomical Region Laterality Modality Breast Bilateral Mammography 06/19/2024 1:23 PM EDT Narrative 06/28/2024 10:33 AM EDT [facility] [address] [place] [address] Mammography Report Signed Patient: Cherri Nash MR#: [id number] : 1965 Acct:[id number] Age/Sex: 59 / F ADM Date: 06/19/24 Loc: HO.MAMMO Attending Dr: Manolo Garcia NP Ordering Physician: MANOLO GARCIA NP Results: 1Negative Date of Service: 06/19/24 Follow Up: 1 Year From Orig inal Mammogram Procedure(s): MM tomosynthesis screening BI Accession Number(s): [id number] cc: MANOLO GARCIA NP EXAMINATION: MM SCREENING [...] 06/28/24 1030 DD/ 1323 TD/TT: 06/19/24 1336 Nurse Case Manager: Procedure Note Donotbryceinterpreter, Image - 06/28/2024 [facility] [address] [place] [address] Mammography Report Signed Patient: Cherri Nash JMR#: [id number] : 1965Acct:[id number] Age/Sex: 59 / FADM Date: 06/19/24 Loc: HO.MAMMO Attending Dr: Manolo Garcia NP Ordering Physician: MANOLO GARCIA NPResults: 1Negative Date of Service: 06/19/24Follow Up: 1 Year From Orig inal Mammogram Procedure(s): MM tomosynthesis screening BI Accession Number(s): [id number] cc: MANOLO GARCIA NP EXAMINATION: MM SCREENING [...] 06/28/24 1030 DD/ 1323 TD/TT: 06/19/24 1336 Nurse Case Manager: us Manolo Garcia ANP IMG BI PROCEDURES Final Result * (ABNORMAL) Lipid Panel, Standard (05/02/2024 2:55 PM EDT) Triglycerides 286(H) <150 mg/dL [facility] Comment:Desirable Triglyceri de: less than 150 mg/dLBorderline High Triglyceride 150-199 mg/dLHigh Triglyceride: 200-499 mg/dLVery High Triglyceride: greater than or equal to 5OO mg/dL Cholesterol 216(H) <200 mg/dL [facility] Comment:Desirable Cholestero l: less than 200 mg/dLBorderline High Cholesterol: 200-239 mg/dLHigh Cholesterol: greater than 239 mg/dL LDL Cholesterol Calculated 123(H) <100 mg/dL [facility] Comment:Desirable LDL: less than 100 mg/dLNear Optimal/Above Optimal LDL: 110- 129 mg/dLBorderline High LDL: 130-159 mg/dLHigh LDL: 160-189 mg/dLVery High LDL: greater than or equal to 190 mg/dL HDL Cholesterol 36(L) >40 mg/dL [facility] Comment:Desirable HDL: great er than 40 mg/dL Note: This HDL assay may give artificially low results in patients with liver disease. 05/02/2024 2:55 PM EDT 05/02/2024 4:04 PM EDT Manolo Garcia ANP LAB BLOOD ORDERABLES Final Resul t [facility] [address] [place] [phone] * HIV 1/2 ANTIGEN/ANTIBODY,FOURTH GENERATION W/RFL (05/08/2022 2:27 PM EDT) HIV-1/2 ANTIGEN AND ANTIBODIES, 4TH GENERATION W/ REFLEX NON-REACT IRON NON-REACT IRON [facility] Comment: HIV-1 antigen and HIV-1/HIV-2 [...] purpose. For additional information please refer to http://InStaff/faq/VDH641 (This link is being provided for informational/ educational purposes only.) The performance of this assay has not been clinically validated in patients less than 2 years old. 05/08/2022 2:27 PM EDT [facility] LAB BLOOD ORDERABLES Final Resul t [facility] [address] * Colonoscopy (04/12/2018) Colonoscopy Normal Normal Historical Provider HEALTH MAINTENANCE Final Result * HPV mRNA E6/E7 (10/25/2016 9:30 AM EST) HPV mRNA E6/E7 Not Detected NOT DETECTED [facility] Comment: This test was performed using the APTIMA(R) HPV Assay ([employer] This assay detects E6/E7 viral messenger RNA (mRNA) from 14 high-risk HPV types (16,18,31,33,35,39,45,51, 52,56,58,59,66,68). For additional information please refer to: http://[place].Servoyant/faq/QMA257c1 (This link is being provided for informational/ educational purposes only.) Test Performed by Dr. TATTOFFNitin, [facility], [address] [place] [address] Naif Pereira M.D., Ph.D., Director of Laboratories , CLIA [id number] Please note: Effective 05/08/2016, HPV testing will be performed using [employer]'s APTIMA test which targets mRNA. Detecting mRNA instead of DNA, as in older methods, offers significant improvements in specificity. 10/25/2016 9:30 AM EST Hazel Corcoran MD HISTORICAL/NON ORDERABLE LABS Final Result [facility] [address] from Last 3 Months or Most Recently Relevant to Health Maintenance Insurance [employer] Care Teams Market Consultant Relationship Specialty Start Date End Date Jennifer Sultana NP [address] [place] [address] PCP - General Family Medicine 07/28/24 Juanito Srinivasan Class 1 Owner Operator 05/10/23 Francisco J Palomino Class 1 Owner OperatorCoordinator Of Health Services 05/16/23 Fawad Vargas Class 1 Owner OperatorCoordinator Of Health Services 08/11/24
--- OUTSIDE RECORDS SUMMARY | 2025-06-18 19:11 | XMS_ITS | Clinical Summary ---
Author Organization [facility] Address [address] [place] [address] Phone Care Team Providers Care License Registration Examiner Name Role Phone Jennifer Sultana PRATIK Primary Care Provider [phone] Allergies Active Allergy Reactions Criticality Noted Date [...] 12/02/2024 1:46 PM EDT Plan of Treatment Health Maintenance Due Date Last Done Comments Breast Cancer Screening 1965 Colorectal Cancer Screening: Colonoscopy 1965 Hepatitis A Vaccines (1 of 2 - Risk 2-dose series) 1986 Hepatitis B Vaccines (1 of 3 - 19+ 3-dose series) 1986 Cervical Cancer Screening: Pap Smear 02/11/1988 RSV Immunization Adult Patients (1 - Risk 50-74 years 1-dose series) 2017 Hepatitis C Screening 08/19/2024 Social Influencers of [...] topic Insurance MEDICAID - [place] Care Teams License Registration Examiner Relationship Specialty Start Date End Date Jennifer Sultana FNP [address] [place] [id number] PCP - General Nurse Practitioner 08/18/24
--- OUTSIDE RECORDS SUMMARY | 2025-06-18 19:11 | XMS_ITS | Encounter Summary ---
Author Organization [employer] Address [address] [place] [address] [address] [place] [address] Care Team Providers Care Director Of Assessing Name Role Phone Jennifer Sultana NP Primary Care Provider [phone] Reason for Visit * Reason Onset Date Comments Reschedule 08/22/2024 Encounter Details Date Type Department Care Team ([facility] Contact Info) Description 08/22/2024 Telephone [facility] [address] [place] [address] Jennifer Sultana NP [address] [place] [address] Reschedule Social History Tobacco Use Types Packs/Day [...] Description 09/18/2025 1:00 PM EST Office Visit [facility] [address] [place] [address] Meli Colon, OD [address] [place] [address] documented as of this encounter Visit Diagnoses Not on filedocumented in this encounter Additional Health Concerns Assessment Noted Time PHQ-9 Depression Total Score: 27 024 2:31 PM EST documented as of this encounter Care Teams Director Of Assessing Relationship Specialty Start Date End Date Jennifer Sultana NP [address] [place] [address] PCP - General Family Medicine 07/28/24 Juanito Srinivasan Envelope Folding Machine Adjuster 05/10/23 Francisco J Palomino Envelope Folding Machine AdjusterChief Legal Officer 05/16/23 Fawad Vargas Envelope Folding Machine AdjusterChief Legal Officer 08/11/24 documented as of this encounter
--- OUTSIDE RECORDS SUMMARY | 2025-06-18 19:11 | XMS_ITS | Encounter Summary ---
Author Organization [employer] Address [address] [place] [address] Care Team Providers Care Barista Name Role Phone Ju Khan ANP Primary Care Provider [phone] Jennifer Sultana TIP PUNCHER Primary Care Provider [phone] Reason for Visit * Reason Comments Med Refill Encounter Details Date Type Department Care Team (Late Contact Info) Description 05/23/2023 Refill [facility] [address] [place] [address] Ju Khan ANP [address] [place] [address] Multiple joint pain Social History Tobacco Use [...] Department Care Team (Late Contact Info) Description 09/18/2025 1:00 PM EST Office Visit [facility] [address] [place], [place] [phone] Meli Colon OD [address] [place] [address] documented as of this encounter Visit Diagnoses Diagnosis Multiple joint pain Pain in joint, multiple sites documented in this encounter Additional Health Concerns Assessment Noted Time PHQ-9 Depression Total Score: 9 12/01/19 23 10:12 AM EDT documented as of this encounter Care Teams Barista Relationship Specialty Start Date End Date Ju Khan ANP [address] [place] [address] PCP - General Family Medicine 03/20/22 07/27/24 Jennifer Sultana NP [address] [place] [address] PCP - General Family Medicine 07/28/24 Juanito Srinivasan Customer Service Correspondence Clerk 05/10/23 Francisco J Palomino Customer Service Correspondence ClerkResidential Specialist 05/16/23 Fawad Vargas Customer Service Correspondence ClerkResidential Specialist 08/11/24 documented as of this encounter
--- OUTSIDE RECORDS SUMMARY | 2025-06-18 19:11 | XMS_ITS | Encounter Summary ---
Author Organization [employer] Address [address] [place] [address] [address] [place] [address] Care Team Providers Care Podiatrist Orthopedic Name Role Phone Ju Khan ANP Primary Care Provider [phone] Jennifer Sultana [employer]PER[employer] Primary Care Provider [phone] Reason for Visit * Reason Onset Date Comments Referral 06/19/2023 Encounter Details Date Type Department Care Team ([facility] Contact Info) Description 06/19/2023 Telephone [facility] [address] [place] [address] Ju Khan ANP [address] [place], [place] [phone] Referral Social History Tobacco Use Types Packs/Day [...] from pt requesting a new location for room service server referral. Any questions, contact pt at [phone] documented in this encounter Plan of Treatment Upcoming Encounters Date Type Department Care Team (Late st Contact Info) Description 09/18/2025 1:00 PM EST Office Visit [facility] [address] [place], [place] [phone] Meli Colon, AVELINO [address] [place] [address] documented as of this encounter Visit Diagnoses Not on filedocumented in this encounter Additional Health Concerns Assessment Noted Time PHQ-9 Depression Total Score: 9 12/01/19 23 10:12 AM EDT documented as of this encounter Care Teams Podiatrist Orthopedic Relationship Specialty Start Date End Date Ju Khan ANP [address] [place] [address] PCP - General Family Medicine 03/20/22 07/27/24 Jennifer Sultana NP [address] [place] [address] PCP - General Family Medicine 07/28/24 Juanito Srinivasan Custom Protection Officer 05/10/23 Francisco J Palomino Custom Protection OfficerSupervisor Filling And Packing 05/16/23 Fawad Vargas Custom Protection OfficerSupervisor Filling And Packing 08/11/24 documented as of this encounter
--- OUTSIDE RECORDS SUMMARY | 2025-06-18 19:11 | XMS_ITS | Encounter Summary ---
Author Organization [employer] Address [address] [place] [address] [address] [address] Care Team Providers Care Office Services Specialist Name Role Phone Ju Khan ANP Primary Care Provider [phone] Jennifer Sultana QUARTZ MOUNTER Primary Care Provider [phone] Reason for Visit * Reason Onset Date Comments Med Refill 03/22/2023 Encounter Details Date Type Department Care Team ([facility] st Contact Info) Description 03/22/2023 Telephone [facility] MEDICINE 230 [place] [address] Ju Khan ANP 230 [place], [place] [id number] Med Refill Social History Tobacco Use Types [...] Description 09/18/2025 1:00 PM EST Office Visit [facility] OPTOMETRY [address] [place], [place] [phone] Meli Colon, OD 230 [place] [address] documented as of this encounter Visit Diagnoses Not on filedocumented in this encounter Additional Health Concerns Assessment Noted Time PHQ-9 Depression Total Score: 9 12/01/19 10:12 AM EDT documented as of this encounter Care Teams Office Services Specialist Relationship Specialty Start Date End Date Ju Khan ANP 230 [place] [address] PCP - General Family Medicine 03/20/22 07/27/24 Jennifer Sultana NP 230 [place] [address] PCP - General Family Medicine 07/28/24 Juanito Srinivasan Sprinkling System Installer 05/10/23 Francisco J Palomino Sprinkling System InstallerPersonal Care Service Provider 05/16/23 Fawad Vargas Sprinkling System InstallerPersonal Care Service Provider 08/11/24 documented as of this encounter
--- OUTSIDE RECORDS SUMMARY | 2025-06-18 19:11 | XMS_ITS | Encounter Summary ---
Author Organization [employer] Address [address] [place] [address] 7t [place] [address] Care Team Providers Care Spanish Interpreter/Translator Name Role Phone Jennifer Sultana NP Primary Care Provider [phone] Reason for Visit * Reason Comments Med Refill Encounter Details Date Type Department Care Team ([facility] Contact Info) Description 08/10/2024 Refill [facility] MEDICINE 230 [place], [place] [phone] Ju Khan, ANP 230 [place] [address] Spondylosis 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 Social [...] Description 09/18/2025 1:00 PM EST Office Visit [facility] OPTOMETRY [address] [place] [address] Isaiah, Meli, OD 230 [place] [address] documented as of this encounter Visit Diagnoses Diagnosis Spondylosis 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 documented in this encounter Additional Health Concerns Assessment Noted Time PHQ-9 Depression Total Score: 27 024 2:31 PM EST documented as of this encounter Care Teams Spanish Interpreter/Translator Relationship Specialty Start Date End Date Jennifer Sultana NP 230 [place] [address] PCP - General Family Medicine 07/28/24 Juanito Srinivasan Automotive Technology Instructor 05/10/23 Francisco J Palomino Automotive Technology InstructorCar Cleaner 05/16/23 Fawad Vargas Automotive Technology InstructorCar Cleaner 08/11/24 documented as of this encounter
--- OUTSIDE RECORDS SUMMARY | 2025-06-18 19:11 | XMS_ITS | Encounter Summary ---
Author Organization [employer] Address [address] [place] [address] [address] [place] [address] Care Team Providers Care Machine Stonecutter Name Role Phone Jennifer Sultana NP Primary Care Provider [phone] Reason for Visit * Reason Onset Date Comments PT1 03/25/2025 Encounter Details Date Type Department Care Team ([facility] Contact Info) Description 03/25/2025 Telephone [facility] MEDICINE 230 [place] [address] Jennifer Sultana NP 230 [place] [address] PT1 Social History Tobacco Use Types Packs/Day [...] Y/N: Yes Provider name or facility name: [address] [place] [address] Escort needed: Y/N: Yes Do you have a wheelchair: Y/N: No Visits: (2x) documented in this encounter Plan of Treatment Upcoming Encounters Date Type Department Care Team (Late st Contact Info) Description 09/18/2025 1:00 PM EST Office Visit [facility] OPTOMETRY [address] [place] [address] Meli Colon, OD 230 [place] [address] documented as of this encounter Visit Diagnoses Not on filedocumented in this encounter Additional Health Concerns Assessment Noted Time PHQ-9 Depression Total Score: 27 024 2:31 PM EST documented as of this encounter Care Teams Machine Stonecutter Relationship Specialty Start Date End Date Jennifer Sultana NP 230 [place] [address] PCP - General Family Medicine 07/28/24 Juanito Srinivasan [employer] Division Manager 05/10/23 Francisco J Palomino [employer] Division ManagerTailer Off 05/16/23 Fawad Vargas [employer] Division ManagerTailer Off 08/11/24 documented as of this encounter
--- OUTSIDE RECORDS SUMMARY | 2025-06-18 19:11 | XMS_ITS | Encounter Summary ---
Demographics Address [address] [facility] [address] [place] [address] Home Phone Mobile Phone Work Phone Email Address Preferred Language en Marital Status Restorationism Affiliation Unknown Race White Ethnic Group Unknown Author Organization [facility] Address [address] [place] [address] 7[address] [place] [address] Care Team Providers Care Devops Solutions Architect Name Role Phone Ju Khan ANP Primary Care Provider [phone] Jennifer Sultana INSPECTOR ASSEMBLIES AND INSTALLATIONS Primary Care Provider [phone] Reason for Visit * Reason Onset Date Comments PT-1 02/25/2024 Encounter Details Date Type Department Care Team ([facility] st Contact Info) Description 02/25/[address] [facility] MEDICINE 230 [place] [address] Ju Khan ANP 230 [place], [place] [phone] PT-1 Social History Tobacco Use Types Packs/Day [...] Y/N: Yes Provider name or facility name: [facility] Address: [address] [place] [address] Escort needed: Y/N: No Do you have a wheelchair: Y/N: No If yes- Manual or electric: n/a Visits: 1x per week documented in this encounter Plan of Treatment Upcoming Encounters Date Type Department Care Team ([facility] Contact Info) Description 09/18/2025 1:00 PM EST Office [facility] OPTOMETRY [address] [place] [address] Meli Colon, OD 230 [place] [address] documented as of this encounter Visit Diagnoses Not on filedocumented in this encounter Additional Health Concerns Assessment Noted Time PHQ-9 Depression Total Score: 9 12/01/19 23 10:12 AM EDT documented as of this encounter Care Teams Devops Solutions Architect Relationship Specialty Start Date End Date Ju Khan ANP 230 [place] [address] PCP - General Family Medicine 03/20/22 07/27/24 Jennifer Sultana NP 230 [place] [address] PCP - General Family Medicine 07/28/24 Juanito Srinivasan Independent Marketing Consultant 05/10/23 Francisco J Palomino Independent Marketing ConsultantAnimal Keeper Head 05/16/23 Fawad Vargas Independent Marketing ConsultantAnimal Keeper Head 08/11/24 documented as of this encounter
--- OUTSIDE RECORDS SUMMARY | 2025-06-18 19:11 | XMS_ITS | Encounter Summary ---
Author Organization [employer] Address [address] [facility] 7t [place] [address] Care Team Providers Care College Dean Name Role Phone Jennifer Sultana NP Primary Care Provider [phone] Encounter Details Date Type Department Care Team ([facility] Contact Info) Description 06/16/2025 Refill [facility] MEDICINE 230 [place] [address] Jennifer Sultana NP 230 [place] [address] Spondylosis 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 Social [...] Description 09/18/2025 1:00 PM EST Office Visit [facility] OPTOMETRY [address] [place] [address] Isaiah, Meli, OD 230 [place] [address] documented as of this encounter Visit Diagnoses Diagnosis Spondylosis 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 documented in this encounter Additional Health Concerns Assessment Noted Time PHQ-9 Depression Total Score: 27 024 2:31 PM EST documented as of this encounter Care Teams College Dean Relationship Specialty Start Date End Date Jennifer Sultana NP 230 [place] [address] PCP - General Family Medicine 07/28/24 Juanito Srinivasan Flatwork Feeder 05/10/23 Francisco J Palomino Flatwork FeederWarhead Maintenance Specialist 05/16/23 Fawad Vargas Flatwork FeederWarhead Maintenance Specialist 08/11/24 documented as of this encounter
--- OUTSIDE RECORDS SUMMARY | 2025-06-18 19:11 | XMS_ITS | Encounter Summary ---
Author Organization [employer] Address [address] [place] [address] 7 [place] [address] Care Team Providers Care Assistant Professor Of Theater Name Role Phone Jennifer Sultana NP Primary Care Provider [phone] Reason for Visit * Reason Onset Date Comments Referral 06/10/2025 Encounter Details Date Type Department Care Team ([facility] Contact Info) Description 06/10/2025 Telephone [facility] MEDICINE 230 [place] [address] Jennifer Sultana NP 230 [place] [address] Referral Social History Tobacco Use Types Packs/Day [...] encounter Miscellaneous Notes * Telephone Encounter - Pattie Carpenter RN - 06/15/2025 3:23 PM EDT Images from the original note were not included. TC placed to pt to schedule appointment per below PCP message. No answer, LVM to call office back and ask to speak to the blue team nurses. Jennifer Sultana NP to [facility] Blue Team Nurses (Selected Message) EG 06/15/25 1:48 PM Note Thank you for this update, I would need to see patient to assess physical exam for MRI to be ordered, she has no shown but happy to reschedule. * Telephone Encounter - Jennifer Sultana NP - 06/15/2025 1:48 PM EDT Thank you for this update, I would need to see patient to assess physical exam for MRI to be ordered, she has no shown but happy to reschedule. * Telephone Encounter - Pattie Carpenter RN - 06/12/2025 1:21 PM EDT TC placed to pt regarding referral request for MRI. Gena pt's keycase assembler answered the phone. Noupdated HIPAA form in chart. Gena provided phone number [phone] to reach the patient. TC placed to pt regarding request for MRI of lumbar spine. Pt does give verbal consent to speak with launch commander [employer] police for the future calls. Pt reports they are requesting a order for MRI of lumbar imagery due to their degenerative disc disease. Pt reports they are to be seeing specialist in [place] and [facility] is requesting this imagery be ordered by PCP and pt to have completed so they are able to review prior to pt being seen. Advised pt appointment may be necessary for order to be placed. Advised pt mes torie to be sent to PCP for review. Pt verbalized understanding and denies questions at this time. * Telephone Encounter - Niranjan Romano - 06/10/2025 11:31 AM EDT Tc from pt requesting a referral for MRI of lumbar Contact pt at [phone] documented in this encounter Plan of Treatment Upcoming Encounters Date Type Department Care Team (Late st Contact Info) Description 09/18/2025 1:00 PM EST Office Visit [facility] OPTOMETRY [address] [place] [address] Isaiah, Meli, OD 230 [place] [address] documented as of this encounter Visit Diagnoses Not on filedocumented in this encounter Additional Health Concerns Assessment Noted Time PHQ-9 Depression Total Score: 27 024 2:31 PM EST documented as of this encounter Care Teams Assistant Professor Of Theater Relationship Specialty Start Date End Date Jennifer Sultana NP 230 [place] [address] PCP - General Family Medicine 07/28/24 Juanito Srinivasan Job Tracer 05/10/23 Francisco J Palomino Job TracerNurse Behavioral Health Care 05/16/23 Fawad Vargas Job TracerNurse Behavioral Health Care 08/11/24 documented as of this encounter
--- OUTSIDE RECORDS SUMMARY | 2025-06-18 19:11 | XMS_ITS | Encounter Summary ---
Demographics Address [address] [facility] [address] [place] [address] Home Phone Mobile Phone Work Phone Email Address Preferred Language en Marital Status Worship Affiliation Unknown Race White Ethnic Group Unknown Author Organization [employer] Address [address] [place] [address] 7t [place] [address] Care Team Providers Care Shipper Name Role Phone Ju Khan ANP Primary Care Provider [phone] Jennifer Sultana STOCK TAKER Primary Care Provider [phone] Reason for Visit * Reason Comments Med Refill Encounter Details Date Type Department Care Team (Late st Contact Info) Description 11/07/2023 Refill [facility] MEDICINE 230 [place] [address] Ju Khan ANP 230 [place] [address] Spondylosis 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 Social [...] Description 09/18/2025 1:00 PM EST Office Visit [facility] OPTOMETRY 267 [place] [address] IsaiahMeli posey, OD 230 [place] [address] documented as of this encounter Visit Diagnoses Diagnosis Spondylosis 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 documented in this encounter Additional Health Concerns Assessment Noted Time PHQ-9 Depression Total Score: 9 12/01/19 23 10:12 AM EDT documented as of this encounter Care Teams Shipper Relationship Specialty Start Date End Date Ju Khan ANP 230 [place] [address] PCP - General Family Medicine 03/20/22 07/27/24 Jennifer Sultana NP 230 [place] [address] PCP - General Family Medicine 07/28/24 Juanito Srinivasan Groover Operator 05/10/23 Francisco J Palomino Groover OperatorBuilding Official 05/16/23 Fawad Vargas Groover OperatorBuilding Official 08/11/24 documented as of this encounter
--- OUTSIDE RECORDS SUMMARY | 2025-06-18 19:11 | XMS_ITS | Encounter Summary ---
Author Organization [employer] Address [address] [place] [address] 7 [place] [address] Care Team Providers Care Sewing Machine Assembler Name Role Phone Ju Khan ANP Primary Care Provider [phone] Jennifer Sultana NP Primary Care Provider [phone] Reason for Visit * Reason Comments Med Refill Encounter Details Date Type Department Care Team ([facility] st Contact Info) Description 07/15/2024 Refill [facility] MEDICINE 230 [place] [address] Ju Khan ANP 230 [place] [address] Multiple joint pain Social History Tobacco Use [...] Description 09/18/2025 1:00 PM EST Office Visit [facility] OPTOMETRY [address] [place] [address] IsaiahMeli posey, OD 230 [place] [address] documented as of this encounter Visit Diagnoses Diagnosis Multiple joint pain Pain in joint, multiple sites documented in this encounter Additional Health Concerns Assessment Noted Time PHQ-9 Depression Total Score: 3 04/04/20 24 1:48 PM EDT documented as of this encounter Care Teams Sewing Machine Assembler Relationship Specialty Start Date End Date Ju Khan ANP 230 [place] [address] PCP - General Family Medicine 03/20/22 07/27/24 Jennifer Sultana NP 230 [place] [address] PCP - General Family Medicine 07/28/24 Juanito Srinivasan Ore Bridge Operator 9/14/23 Francisco J Palomino Ore Bridge OperatorPaving And Surfacing Labourer 05/16/23 Fawad Vargas Ore Bridge OperatorPaving And Surfacing Labourer 08/11/24 documented as of this encounter
--- OUTSIDE RECORDS SUMMARY | 2025-06-18 19:11 | XMS_ITS | Encounter Summary ---
Demographics Address [address] [facility] [address] [place] [address] Home Phone Mobile Phone Work Phone Email Address Preferred Language en Marital Status Catholic Affiliation Unknown Race White Ethnic Group Unknown Author Organization [employer] Address [address] [place] [address] 7 [place] [address] Care Team Providers Care Sheet Metal Supervisor Name Role Phone Ju Khan ANP Primary Care Provider [phone] Jennifer Sultana NP Primary Care Provider [phone] Reason for Visit * Reason Comments Med Refill Encounter Details Date Type Department Care Team ([facility] st Contact Info) Description 10/28/2023 Refill [facility] MEDICINE 230 [place] [address] Ju Khan ANP 230 [place] [address] Multiple joint pain Social History Tobacco Use [...] Description 09/18/2025 1:00 PM EST Office Visit [facility] OPTOMETRY [address] [place] [address] Isaiah, Meli, OD 230 [place] [address] documented as of this encounter Visit Diagnoses Diagnosis Multiple joint pain Pain in joint, multiple sites documented in this encounter Additional Health Concerns Assessment Noted Time PHQ-9 Depression Total Score: 9 12/01/19 10:12 AM EDT documented as of this encounter Care Teams Sheet Metal Supervisor Relationship Specialty Start Date End Date Ju Khan ANP 230 [place] [address] PCP - General Family Medicine 03/20/22 07/27/24 Jennifer Sultana NP 230 [place] [address] PCP - General Family Medicine 07/28/24 Juanito Srinivasan Asphalt Paver Operator 05/10/23 Francisco J Palomino Asphalt Paver OperatorPlant Wire Chief 05/16/23 Fawad Vargas Asphalt Paver OperatorPlant Wire Chief 08/11/24 documented as of this encounter
--- OUTSIDE RECORDS SUMMARY | 2025-06-18 19:11 | XMS_ITS | Encounter Summary ---
Author Organization [employer] Address [address] [place] [address] Care Team Providers Care Marketing Performance Analyst Name Role Phone Ju Khan Primary Care Provider [phone] Jennifer Sultana NP Primary Care Provider [phone] Reason for Referral * Consultation (STAT) - Closed Specialty Diagnoses / Procedures [facility] Referred To Contact Orthopaedic Surgery Diagnoses Other closed fracture of proximal end of right tibia, initial encounter Fry cyst, right Ju Khan ANP 230 [place] [address] Phone: tel: fax: [facility] [address] [place] [address] Phone: tel: Referral ID Status Reason Start Date Expiration Date V isits Requested Visits Authorized [id number] Closed Specialty Services Required 05/05/2024 05/05/2025 3 3 Reason for Visit * Reason Comments Med Refill Encounter Details Date Type Department Care Team (Late st Contact Info) Description 07/03/2024 Refill [facility] MEDICINE 230 [place] [address] Ju Khan ANP 230 [place] [address] Other closed fracture of proximal end of [...] Description 09/18/2025 1:00 PM EST Office Visit [facility] OPTOMETRY [address] [place] [address] Isaiah, Meli, OD [address] [place] [address] Scheduled Referrals Name Type Priority Associated Diagnoses [...] as of this encounter Care Teams Marketing Performance Analyst Relationship Specialty Start Date End Date Ju Khan ANP 230 [place] [address] PCP - General Family Medicine 03/20/22 07/27/24 Jennifer Sultana NP 230 [place] [address] PCP - General Family Medicine 07/28/24 Juanito Srinivasan Resaw Tailer 05/10/23 Francisco J Palomino Resaw TailerSpecialty Finishing Utility Person 05/16/23 Faawd Vargas Resaw TailerSpecialty Finishing Utility Person 08/11/24 documented as of this encounter
--- OUTSIDE RECORDS SUMMARY | 2025-06-18 19:11 | XMS_ITS | Encounter Summary ---
Author Organization [employer] Address [address] [facility] 7t [place] [address] Care Team Providers Care House Coordinator Name Role Phone Jennifer Sultana NP Primary Care Provider [phone] Encounter Details Date Type Department Care Team ([facility] Contact Info) Description 08/12/2024 Telephone [facility] MEDICINE 230 [place] [address] Jennifer Sultana NP 230 [place] [address] Social History Tobacco Use Types Packs/Day Years [...] 1:00 PM EST Office Visit [facility] OPTOMETRY [address] [place] [address] Isaiah, Meli, OD 230 [place] [address] documented as of this encounter Visit Diagnoses Not on filedocumented in this encounter Additional Health Concerns Assessment Noted Time PHQ-9 Depression Total Score: 27 024 2:31 PM EST documented as of this encounter Care Teams House Coordinator Relationship Specialty Start Date End Date Jennifer Sultana NP 230 [place] [address] PCP - General Family Medicine 07/28/24 Juanito Srinivasan Assistant Signal Maintainer 05/10/23 Francisco J Palomino Assistant Signal MaintainerVideo Clerk 05/16/23 Fawad Vargas Assistant Signal MaintainerVideo Clerk 08/11/24 documented as of this encounter
--- OUTSIDE RECORDS SUMMARY | 2025-06-18 19:11 | XMS_ITS | Encounter Summary ---
Author Organization [employer] Address [address] [place] [address] 7 [place] [address] Care Team Providers Care Denitrator Name Role Phone Ju Khan ANP Primary Care Provider [phone] Jennifer Sultana NP Primary Care Provider [phone] Reason for Visit * Reason Onset Date Comments PT1 06/19/2023 Encounter Details Date Type Department Care Team ([facility] Contact Info) Description 06/19/2023 Telephone [facility] MEDICINE 230 [place] [address] Ju Khan ANP 230 [place], [place] [phone] PT1 Social History Tobacco Use Types Packs/Day [...] / denial letter via mail. PT-1 Request [id number] Authorized - [address] [address] Wrote called and spoke with pt regarding PT1. [facility] GI PT1 is good through October 2023 & [facility] Pulmonology is good through 01/2024. Pt just needed [facility] * Telephone Encounter - Lupis Cano - 06/19/2023 2:15 PM EDT Tc from pt requesting PT1 renewal Date: n/a Time: n/a Visits: n/a Address: [address] [place] [address] willi [place] Facility: [facility] Wheel Chair: no, cane Fitness And Wellness Director Needed: no Date: 07/04 Time: 12 PM Visits: n/a Address: [address] [place] [address] Willi Wilson [place] Facility: [facility] Wheel Chair: no, cane Fitness And Wellness Director Needed: no documented in this encounter Plan of Treatment Upcoming Encounters Date Type Department Care Team (Late st Contact Info) Description 09/18/2025 1:00 PM EST Office Visit [facility] OPTOMETRY [address] [place] [address] Meli Colon, OD 230 [place] [address] documented as of this encounter Visit Diagnoses Not on filedocumented in this encounter Additional Health Concerns Assessment Noted Time PHQ-9 Depression Total Score: 9 12/01/19 23 10:12 AM EDT documented as of this encounter Care Teams Denitrator Relationship Specialty Start Date End Date Ju Khan ANP 230 [place] [address] PCP - General Family Medicine 03/20/22 07/27/24 Jennifer Sultana NP 230 [place] [address] PCP - General Family Medicine 07/28/24 Juanito Srinivasan Signal Inspector 05/10/23 Francisco J Palomino Signal InspectorAssistant Strength Coach 05/16/23 Fawad Vargas Signal InspectorAssistant Strength Coach 08/11/24 documented as of this encounter
--- OUTSIDE RECORDS SUMMARY | 2025-06-18 19:11 | XMS_ITS | Encounter Summary ---
Author Organization [employer] Address [address] [place] [address] 7 [place] [address] Care Team Providers Care Rn Family Name Role Phone Ju Khan ANP Primary Care Provider Jennifer Sultana NP Primary Care Provider [phone] Reason for Visit * Reason Onset Date Comments PT1 02/06/2024 Encounter Details Date Type Department Care Team ([facility] Contact Info) Description 02/06/2024 Telephone [facility] MEDICINE [address] [place] [address] Ju Khan ANP [address] [place] [address] PT1 Social History Tobacco Use Types Packs/Day [...] Y/N: Yes Provider name or facility name: [facility] Facility Address: [address] [place] [address] Escort needed: Y/N: Yes Do you have [...] Description 09/18/2025 1:00 PM EST Office Visit [facility] OPTOMETRY [address] [place] [address] Isaiah, Meli, OD [address] [place] [address] documented as of this encounter Visit Diagnoses Not on filedocumented in this encounter Additional Health Concerns Assessment Noted Time PHQ-9 Depression Total Score: 9 12/01/19 23 10:12 AM EDT documented as of this encounter Care Teams Rn Family Relationship Specialty Start Date End Date Ju Khan ANP [address] [place] [address] PCP - General Family Medicine 03/20/22 07/27/24 Jennifer Sultana NP 230 [place] [address] PCP - General Family Medicine 07/28/24 Juanito Srinivasan Bell Valet 05/10/23 Francisco J Palomino Bell ValetBox Lining Machine Feeder 05/16/23 Fawad Vargas Bell [employer]etBox Lining Machine Feeder 08/11/24 documented as of this encounter
--- OUTSIDE RECORDS SUMMARY | 2025-06-18 19:11 | XMS_ITS | Encounter Summary ---
Author Organization [employer] Address [address] [place] [address] 7 [place] [address] Care Team Providers Care Warehouse And Receiving Supervisor Name Role Phone Ju Khan ANP Primary Care Provider [phone] Jennifer Sultana DIAL BUFFER Primary Care Provider [phone] Reason for Visit * Reason Onset Date Comments PT-1 06/11/2024 Encounter Details Date Type Department Care Team ([facility] st Contact Info) Description 06/11/2024 Telephone [facility] MEDICINE 230 [place] [address] Ju Khan ANP [address] [place], [place] [phone] PT-1 Social History Tobacco Use Types Packs/Day [...] Y/N: Yes Provider name or facility name: [facility] (Dr. Philippe Evans) Facility Address: [address] [place] [address] Escort needed: Y/N: Yes Do you have a wheelchair: Y/N: No If yes- Manual or electric: (Uses walker and cane) Visits: 3 times a month - Patient calling requesting PT1 Home Address verified: Y/N: Yes Provider name or facility name: [facility] Facility Address: [address] [place] [address] Escort needed: Y/N: Yes Do you have a wheelchair: Y/N: No If yes- Manual or electric: Walker and Cane Visits: 4 a month - Patient calling requesting PT1 Home Address verified: Y/N: Yes Provider name or facility name: Ramez John MD Facility Address: [address] [place] [address] Escort needed: Y/N: Yes Do you have a wheelchair: Y/N: No If yes- Manual or electric: Walker and cane Visits: 3 monthly documented in this encounter Plan of Treatment Upcoming Encounters Date Type Department Care Team (Late st Contact Info) Description 09/18/2025 1:00 PM EST Office Visit [facility] OPTOMETRY [address] [place] [address] Meli Colon, OD [address] [place] [address] documented as of this encounter Visit Diagnoses Not on filedocumented in this encounter Additional Health Concerns Assessment Noted Time PHQ-9 Depression Total Score: 3 04/04/20 1:48 PM EDT documented as of this encounter Care Teams Warehouse And Receiving Supervisor Relationship Specialty Start Date End Date Ju Khan ANP [address] [place], [place] [phone] PCP - General Family Medicine 03/20/22 07/27/24 Jennifer Sultana NP [address] [place] [address] PCP - General Family Medicine 07/28/24 Juanito Srinivasan Physician 05/10/23 Francisco J Palomino PhysicianVessel Builder 05/16/23 Fawad Vargas PhysicianVessel Builder 08/11/24 documented as of this encounter
--- OUTSIDE RECORDS SUMMARY | 2025-06-18 19:11 | XMS_ITS | Encounter Summary ---
Author Organization [employer] Address [address] [place] [address] 7 [place] [address] Care Team Providers Care Microbiological Laboratory Technician Name Role Phone Ju Khan ANP Primary Care Provider [phone] Jennifer Sultana NP Primary Care Provider [phone] Reason for Visit * Reason Onset Date Comments PT1 06/15/2023 Encounter Details Date Type Department Care Team ([facility] Contact Info) Description 06/15/2023 Telephone [facility] MEDICINE [address] [place] [address] Ju Khan ANP [address] [place], [place] [phone] PT1 Social History Tobacco Use Types Packs/Day [...] Time: 2:45 Visits: 2 monthly Address: [address] [place] [address] Facility: [facility] Wheel Chair: no/cane Unit Nurse Needed: no & Date: 07/17/2023 Time: 2:00 Visits: 3 monthly Address: [address] [place] [address] Facility: [facility] Wheel Chair: no/cane Unit Nurse Needed: no documented in this encounter Plan of Treatment Upcoming Encounters Date Type Department Care Team ([facility] st Contact Info) Description 09/18/2025 1:00 PM EST Office Visit [facility] OPTOMETRY [address] [place] [address] Isaiah, Meli, OD [address] [place] [address] documented as of this encounter Visit Diagnoses Not on filedocumented in this encounter Additional Health Concerns Assessment Noted Time PHQ-9 Depression Total Score: 9 12/01/19 23 10:12 AM EDT documented as of this encounter Care Teams Microbiological Laboratory Technician Relationship Specialty Start Date End Date Ju Khan ANP [address] [place] [address] PCP - General Family Medicine 03/20/22 07/27/24 Jennifer Sultana NP [address] [place] [address] PCP - General Family Medicine 07/28/24 Juanito Srinivasan Chemistry Instructor 05/10/23 Francisco J Palomino Chemistry InstructorHot Die Press Feeder 05/16/23 Fawad Vargas Chemistry InstructorHot Die Press Feeder 08/11/24 documented as of this encounter
--- OUTSIDE RECORDS SUMMARY | 2025-06-18 19:11 | XMS_ITS | Encounter Summary ---
Author Organization [facility] Address [address] [facility] [address] [place] [address] Phone Care Team Providers Care Vehicle Glass Technician Name Role Phone Nick Tejada DO Primary Care Provider [phone] Encounter Details Date Type Department Care Team (Late st Contact Info) Description 05/30/2018 Ancillary Orders [facility] [address] [place] [address] Nick Tejada DO [address] [place] [address] Dizziness Social History Tobacco Use Types Packs/Day [...] giddiness documented in this encounter Care Teams Vehicle Glass Technician Relationship Specialty Start Date End Date Nick Tejada [address] [place] [address] PCP - General Cardiology 05/29/18 documented as of this encounter Additional Source Comments The information contained in this document represents components of the legal health record. It is not the complete legal health record.[facility]
--- OUTSIDE RECORDS SUMMARY | 2025-06-18 19:11 | XMS_ITS | Encounter Summary ---
Author Organization [employer] Address [address] [place] [address] [address], [place] [address] Care Team Providers Care Ballpoint Pen Cartridge Tester Name Role Phone Jennifer Sultana NP Primary Care Provider [phone] Reason for Visit * Reason Onset Date Comments Referral 03/25/2025 Encounter Details Date Type Department Care Team ([facility] Contact Info) Description 03/25/2025 Telephone [facility] MEDICINE [address] [place] [address] Jennifer Sultana NP [address] [place] [address] Referral Social History Tobacco Use Types Packs/Day [...] pt who reports that female specialist at [facility] will not see her until she has completed an MRI of the spine. Pt states she is unsure of specialist's name but was advised to send MRI results to [phone]. Pt agrees to appt with Blue team provider next week as she needs time to arrange transportation. * Telephone Encounter - Dionisio Barragan - 03/25/2025 11:59 AM EDT Tc from pt requesting a referral for the MRI. For the spine. Any questions contact pt at [phone] documented in this encounter Plan of Treatment Upcoming Encounters Date Type Department Care Team (Late st Contact Info) Description 09/18/2025 1:00 PM EST Office Visit [facility] OPTOMETRY [address] [place], [place] [phone] Isaiah, Meli, OD [address] [place] [address] documented as of this encounter Visit Diagnoses Not on filedocumented in this encounter Additional Health Concerns Assessment Noted Time PHQ-9 Depression Total Score: 27 024 2:31 PM EST documented as of this encounter Care Teams Ballpoint Pen Cartridge Tester Relationship Specialty Start Date End Date Jennifer Sultana NP [address] [place] [address] PCP - General Family Medicine 07/28/24 Juanito Srinivasan Ethylbenzene Converter Operator 05/10/23 Francisco J Palomino Ethylbenzene Converter OperatorDrive In Waiter/Waitress 05/16/23 Fawad Vargas Ethylbenzene Converter OperatorDrive In Waiter/Waitress 08/11/24 documented as of this encounter
--- OUTSIDE RECORDS SUMMARY | 2025-06-18 19:11 | XMS_ITS | Encounter Summary ---
Author Organization [employer] Address [address] [facility] 7t [place] [address] Care Team Providers Care Natural Science Manager Name Role Phone Jennifer Sultana NP Primary Care Provider [phone] Reason for Visit * Reason Comments Med Refill Encounter Details Date Type Department Care Team ([facility] Contact Info) Description 02/19/2025 Refill [facility] MEDICINE [address] [place], [place] [phone] Jennifer Sultana NP [address] [place] [address] Spondylosis 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 Social [...] Description 09/18/2025 1:00 PM EST Office Visit [facility] OPTOMETRY [address] [place] [address] Isaiah, Meli, OD [address] [place] [address] documented as of this encounter Visit Diagnoses Diagnosis Spondylosis 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 documented in this encounter Additional Health Concerns Assessment Noted Time PHQ-9 Depression Total Score: 27 024 2:31 PM EST documented as of this encounter Care Teams Natural Science Manager Relationship Specialty Start Date End Date Jennifer Sultana NP [address] [place] [address] PCP - General Family Medicine 07/28/24 Juanito Srinivasan Benefit Authorizer 05/10/23 Francisco J Palomino Benefit AuthorizerAnalog Design Engineer 05/16/23 Fawad Vargas Benefit AuthorizerAnalog Design Engineer 08/11/24 documented as of this encounter
--- OUTSIDE RECORDS SUMMARY | 2025-06-18 19:11 | XMS_ITS | Encounter Summary ---
Author Organization [employer] Address [address] [place] [address] 7 [place] [address] Care Team Providers Care Heavy Equipment Operator/Paver Name Role Phone Ju Khan ANP Primary Care Provider Jennifer Sultana NP Primary Care Provider [phone] Reason for Visit * Reason Onset Date Comments PT1 06/18/2023 Encounter Details Date Type Department Care Team ([facility] Contact Info) Description 06/18/2023 Telephone [facility] MEDICINE [address] [place] [address] uJ Khan ANP [address] [place], [place] [phone] PT1 Social History Tobacco Use Types Packs/Day [...] 2:19 PM EDT PT1 Name of facility: [facility] Specialty: Follow up with PCP Location: [address] [place] [address] Date: 07/02/2023 Time: 3:00 pm fax: [phone] wheelchair: NO Integration Solution Architect: NO Visits: Pt states for all future appts documented in this encounter Plan of Treatment Upcoming Encounters Date Type Department Care Team (Late st Contact Info) Description 09/18/2025 1:00 PM EST Office Visit [facility] OPTOMETRY [address] [place] [address] Meli Colon, OD [address] [place] [address] documented as of this encounter Visit Diagnoses Not on filedocumented in this encounter Additional Health Concerns Assessment Noted Time PHQ-9 Depression Total Score: 9 12/01/19 10:12 AM EDT documented as of this encounter Care Teams Heavy Equipment Operator/Paver Relationship Specialty Start Date End Date Ju Khan ANP [address] [place] [address] PCP - General Family Medicine 03/20/22 07/27/24 Jennifer Sultana NP [address] [place] [address] PCP - General Family Medicine 07/28/24 Juanito Srinivasan Vp Software Support 05/10/23 Francisco J Palomino Vp Software SupportPurchasing Department Clerk 05/16/23 Fawad Vargas Vp Software SupportPurchasing Department Clerk 08/11/24 documented as of this encounter
--- OUTSIDE RECORDS SUMMARY | 2025-06-18 19:11 | XMS_ITS | Encounter Summary ---
Author Organization [email or web address] Address [address] [place] [address] 7t [place] [address] Care Team Providers Care Collection Analyst Name Role Phone Jennifer Sultana NP Primary Care Provider [phone] Reason for Visit * Reason Comments Med Refill Encounter Details Date Type Department Care Team ([facility] Contact Info) Description 04/02/[address] [facility] MEDICINE [address] [place], [place] [phone] Bree Love MD [address] [place], [place] [phone] Spondylosis 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 Social [...] 1:00 PM EST Office Visit [facility] OPTOMETRY [address] [place] [address] Isaiah, Meli, OD [address] [place] [address] documented as of this encounter Visit Diagnoses Diagnosis Spondylosis 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 documented in this encounter Additional Health Concerns Assessment Noted Time PHQ-9 Depression Total Score: 27 024 2:31 PM EST documented as of this encounter Care Teams Collection Analyst Relationship Specialty Start Date End Date Jennifer Sultana NP [address] [place] [address] PCP - General Family Medicine 07/28/24 Juanito Srinivasan Marshmallow Maker 05/10/23 Francisco J Palomino Marshmallow MakerCnc Machinist 2Nd Shift 05/16/23 Fawad Vargas Marshmallow MakerCnc Machinist 2Nd Shift 08/11/24 documented as of this encounter
--- OUTSIDE RECORDS SUMMARY | 2025-06-18 19:11 | XMS_ITS | Encounter Summary ---
Author Organization [employer] Address [address] [place] [address] [address] [address] Care Team Providers Care Lace Roller Operator Name Role Phone Ju Khan ANP Primary Care Provider [phone] Jennifer Sultana FLOWER GROWER Primary Care Provider [phone] Reason for Visit * Reason Onset Date Comments PT1 03/09/2023 Encounter Details Date Type Department Care Team ([facility] Contact Info) Description 03/09/2023 Telephone [facility] MEDICINE [address] [place] [address] Ju Khan ANP [address] [place] [address] PT1 Social History Tobacco Use Types Packs/Day [...] PM EDT PT1 initiated for PSS[facility] in [facility] will send pt a letter with instructions * Telephone Encounter - Lupis Jerome - 03/09/2023 1:13 PM EDT Tc from pt requesting a PT1 PT1 Date: TBD Time: TBD Address: [address] [place] [address] Specialty: radiculopathy Facility: [facility] Machine Assistant: no Wheelchair: no, cane documented in this encounter Plan of Treatment Upcoming Encounters Date Type Department Care Team (Late st Contact Info) Description 09/18/2025 1:00 PM EST Office Visit [facility] OPTOMETRY [address] [place] [address] Isaiah, Megan, OD [address] [place] [address] documented as of this encounter Visit Diagnoses Not on filedocumented in this encounter Additional Health Concerns Assessment Noted Time PHQ-9 Depression Total Score: 9 12/01/19 23 10:12 AM EDT documented as of this encounter Care Teams Lace Roller Operator Relationship Specialty Start Date End Date Ju Khan ANP [address] [place] [address] PCP - General Family Medicine 03/20/22 07/27/24 Jennifer Sultana NP [address] [place] [address] PCP - General Family Medicine 07/28/24 Juanito Srinivasan Body Presser 05/10/23 Francisco J Palomino Body PresserMeat Packager 05/16/23 Fawad Vargas Body PresserMeat Packager 08/11/24 documented as of this encounter
--- OUTSIDE RECORDS SUMMARY | 2025-06-18 19:11 | XMS_ITS | Clinical Summary ---
Author Organization [facility] Address [address] [facility] [address] [place] [address] Phone Care Team Providers Care Gun Club Manager Name Role Phone Nick Tejada DO Primary Care Provider [phone] Social History Tobacco Use Types Packs/Day Years [...] file Medical Devices Not on file Insurance [facility] C3 ACO C3 ACO C3 ACO C3 ACO C3 ACO C[address] [place] [address] [place] [address] [place] [address] [place] [address] [place] [place] [address] C3 ACO Care Teams Gun Club Manager Relationship Specialty Start Date End Date Nick Tejada DO [address] [place] [address] PCP - General Cardiology 05/29/18 Additional Source Comments The information contained in this document represents components of the legal health record. It is not the complete legal health record.[facility]
== END 2025-06-18 16:04 | disposition home or self-care (01) ==
LOC: HO.HCS 15:24
PROVIDERS: PCP Nurse Practitioner Family
DX: R06.00 Dyspnea, unspecified (principal); I10 Essential (primary) hypertension
CPT/HCPCS: 99214

== ENCOUNTER → 2025-06-18 15:24 | Outpatient (BNVA) | payer MEDICAID, SELFPAY | PROVIDERS: PCP Nurse Practitioner Family | DX: I10 Essential (primary) hypertension (principal); R06.00 Dyspnea, unspecified | CPT/HCPCS: 99212 ==

== ENCOUNTER 2025-06-25 13:51 | Outpatient (AMB) | payer MEDICAID, SELFPAY ==
[2025-06-25 14:20] VITALS: BP 92/58; PULSE 66; O2SAT 97; BMI 30.8
--- NOTE | 2025-06-25 14:20 | MHC.OFFVIS ---
Vital Signs 06/25/25 14:20 Height 5 ft 5 in Weight 185 lb BMI 30.8 BP 92/58 L Blood Pressure Location Lt brachial Position Sitting Pulse 66 Pulse Source Pulse Oximeter Pulse Oximetry (%) 97 Oxygen Delivery Method Room Air Intake Visit Reasons: copd Allergies codeine Allergy (Severe, Verified 06/18/25 15:32) Anaphylaxis aspirin Allergy (Mild, Verified 06/18/25 15:32) Hives Penicillins (PENICILLINS) Allergy (Mild, Verified 06/18/25 15:32) HIVES Sulfa (Sulfonamide Antibiotics) Allergy (Mild, Verified 06/18/25 15:32) Hives sulfamethoxazole (From Bactrim) Allergy (Mild, Verified 06/18/25 15:32) inflamed hives, rash, trimethoprim (From Bactrim) Allergy (Mild, Verified 06/18/25 15:32) inflamed hives, rash, amoxicillin (AMOXICILLIN) Allergy (Unknown, Verified 06/18/25 15:32) HIVES albuterol Allergy (Verified 06/18/25 15:32) Hives citalopram (From Celexa) Allergy (Verified 06/18/25 15:32) Hives lamotrigine (From Lamictal) Allergy (Verified 06/18/25 15:32) Hives olanzapine Allergy (Verified 06/18/25 15:32) Hives morphine Adverse Reaction (Mild, Verified 06/18/25 15:32) Itching haloperidol (From Haldol) Adverse Reaction (Verified 06/18/25 15:32) Angioedema HPI HPI copd: Details: 60-year-old lady, active 40+ pack-year smoker, followed for COPD, pulmonary nodules and dyspnea on exertion.? She continues to use Stiolto, Asmanex, duo nebs, theophylline 400, and albuterol MDI/nebs with suboptimal control of her symptoms.? Patient is also following up with cardiology for cardiac component.? She was not able to complete cardiopulmonary exercise testing.? Her pulmonary function test shows some mild COPD that does not fully explain her dyspnea symptoms. Her lung cancer screening CT chest is still pending. Her sleep study showed underlying mild obstructive sleep apnea, she was started on CPAP. She has complain of an acute exacerbation symptomatic with cough productive of yellowish sputum and some wheezing. [facility] Medical History Delayed gastric emptying Hypercalcemia Tearfulness Rhinosinusitis Essential (primary) hypertension Anorexia nervosa, restricting type Blindness of left eye Thoracic back pain Uterine leiomyoma Vitamin D deficiency Visual impairment Stress incontinence of urine Chronic kidney disease, stage 3a Former smoker Rib lesion Recurrent acute sinusitis Raised TSH level Pure hypercholesterolemia Mixed hyperlipidemia Postural dizziness Opioid dependence Muscle pain Multiple joint pain Moderate persistent asthma without complication Lumbar radiculopathy Chronic rhinitis Hepatitis C Blood in urine Asthenia COVID-19 vaccine series completed Bipolar disorder Chronic pain syndrome Disc degeneration, lumbar Spondylosis 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 Chronic constipation Deviated septum Emphysema lung Adenomatous colon polyp Acid reflux Surgical History History of tympanoplasty S/P surgery on nasal septum History of bunionectomy History of tubal ligation History of esophagogastroduodenoscopy (EGD) Hx of colonoscopy Family History Father Brain cancer Mother Ovarian cancer Breast cancer Cervical cancer Social History Household Members: Children Alcohol intake: never Patient Tobacco Use Status: Former Tobacco user Tobacco use type: Cigarette Current occupational status: unemployed Review of Systems Const Denies daytime sleepiness, Denies excessive sweating, Denies fatigue, Denies fever(s), Denies lethargy, Denies malaise, Denies night sweats, Denies snoring and Denies weight loss Eyes Denies blurry vision and Denies itchy eyes ENT Denies nasal congestion, Denies post nasal drip, Denies sinus pain, Denies sinus pressure and Denies other ( Thrush) Card Denies chest pain, Denies pedal edema, Denies dyspnea, Reports dyspnea on exertion, Denies orthopnea and Denies paroxysmal nocturnal dyspnea Resp Reports cough, Denies hemoptysis, Reports excessive phlegm production, Denies dyspnea, Reports dyspnea on exertion, Denies snoring and Reports wheezing GI Denies abdominal pain and Denies heartburn Musc Denies myalgias, Denies arthralgias and Denies joint swelling Skin/Breast Denies rash Neuro Denies memory loss and Denies seizure-like activity Psych Denies abnormal sleep pattern, Denies anxiety and Denies memory loss Endo Denies excessive sweating, Denies fatigue and Denies heat intolerance Win/Lymph Denies easy bruising Aller/Immun Denies itchy eyes, Denies seasonal rhinorrhea and Reports wheezing Physical Exam Vital Signs: Last Vital Signs Pulse 66 06/25/25 14:20 BP 92/58 L 06/25/25 14:20 Pulse Ox 97 06/25/25 14:20 Oxygen Delivery Method Room Air 06/25/25 14:20 BMI result Body Mass Index 30.8 Const General: no acute distress and alert Nutritional Appearance: not obese Orientation/consciousness: Other orientation findings ( oriented) HEENT Head: Yes atraumatic Eyes General: appearance normal, both eyes and all related structures Sclerae: sclerae normal EOM: EOMs intact bilaterally Neck Neck: Yes supple Lymphatic: no lymphadenopathy noted Resp Effort & Inspection: normal respiratory effort and no use of accessory muscles Auscultation: clear to auscultation bilaterally Cardio Rate: regular rate Rhythm: regular rhythm Heart sounds: no gallops, no murmurs and no rubs Skin General skin exam: other ( warm) Extrem General: No clubbing, No cyanosis and No edema Assessment & Plan Assessment & Plan (1) COPD (chronic obstructive pulmonary disease): Code(s): J44.9 - Chronic obstructive pulmonary disease, unspecified Category: Medical Plan: Reasonable control on baseline Stiolto, Asmanex, duo nebs, albuterol MDI, and theophylline when patient is compliant with treatment regimen. (2) FILIPE (obstructive sleep apnea): Comment: COPD, FILIPE Code(s): G47.33 - Obstructive sleep apnea (adult) (pediatric) Category: Medical Plan: Suboptimal compliance with CPAP therapy. Patient has been advised to be more compliant with CPAP therapy. (3) Personal history of nicotine dependence: Code(s): Z87.891 - Personal history of nicotine dependence Category: Medical Plan: Patient was unable to compliance lung cancer screening CT chest. Reordered. Medications: New prednisone 40 mg (2 x 20 mg) PO DAILY 10 tabs 0RF tiotropium-olodaterol 2.5-2.5 mcg/actuation (Stiolto Respimat) 2 puffs inhalation DAILY 4 grams 6RF levofloxacin 500 mg PO DAILY 7 tabs 0RF Coding Level of Care Code Est Pt Level 4 (91015) Complex EM visit Add On G2211 Diagnoses COPD (chronic obstructive pulmonary disease) J44.9 FILIPE (obstructive sleep apnea) G47.33 Personal history of nicotine dependence Z87.891
--- OUTSIDE RECORDS SUMMARY | 2025-06-25 16:49 | XMS_ITS | Encounter Summary ---
Author Organization [employer] Address [address] [place] [address] Care Team Providers Care Pst Manager Name Role Phone Ju Khan Primary Care Provider [phone] Jennifer Sultana NP Primary Care Provider [phone] Reason for Referral * Consultation (STAT) - Closed Specialty Diagnoses / Procedures [facility] Referred To Contact Orthopaedic Surgery Diagnoses Other closed fracture of proximal end of right tibia, initial encounter Fry cyst, right Ju Khan ANP [address] [place] [address] Phone: tel: fax: [facility] [address] [place] [address] Phone: tel: Referral ID Status Reason Start Date Expiration Date V isits Requested Visits Authorized [id number] Closed Specialty Services Required 05/05/2024 05/05/2025 3 3 Reason for Visit * Reason Comments Med Refill Encounter Details Date Type Department Care Team (Late st Contact Info) Description 07/03/2024 Refill [facility] MEDICINE [address] [place] [address] Ju Khan ANP [address] [place] [address] Other closed fracture of proximal end of [...] Care Team (Late st Contact Info) Description 08/03/2025 10:45 AM EST Office Visit [facility] MEDICINE [address] [place] [address] Jennifer Sultana NP [address] [place] [address] 09/18/2025 1:00 PM EST Office Visit [facility] OPTOMETRY [address] [place] [address] Meli Colon, OD [address] [place] [address] Scheduled Referrals Name Type Priority Associated Diagnoses [...] documented as of this encounter Care Teams Pst Manager Relationship Specialty Start Date End Date Ju Khan ANP [address] [place] [address] PCP - General Family Medicine 03/20/22 07/27/24 Jennifer Sultana NP [address] [place] [address] PCP - General Family Medicine 07/28/24 Juanito Srinivasan Children'S Entertainer 05/10/23 Francisco J Palomino Children'S EntertainerRn Documentation 05/16/23 Fawad Vargas Children'S EntertainerRn Documentation 08/11/24 documented as of this encounter
--- OUTSIDE RECORDS SUMMARY | 2025-06-25 16:49 | XMS_ITS | Encounter Summary ---
Demographics Address [address] [facility] [address] [facility] [address] [place] [address] Home Phone Mobile Phone Work Phone Email Address Preferred Language en Marital Status Restorationism Affiliation Unknown Race White Ethnic Group Unknown Author Organization [employer] Address [address] [place] [address] 7t [place] [address] Care Team Providers Care Form Setter Helper Name Role Phone Ju Khan ANP Primary Care Provider [phone] Jennifer Sultana BULLARD MACHINE OPERATOR Primary Care Provider [phone] Reason for Visit * Reason Onset Date Comments PT-1 02/25/2024 Encounter Details Date Type Department Care Team ([facility] st Contact Info) Description 02/25/2024 Telephone [facility] MEDICINE [address] [place] [address] Ju Khan ANP [address] [place], [place] [phone] PT-1 Social History Tobacco Use Types Packs/Day [...] Y/N: Yes Provider name or facility name: [facility] Facility Address: [address] [place] [address] Escort needed: Y/N: No Do you have a wheelchair: Y/N: No If yes- Manual or electric: n/a Visits: 1x per week documented in this encounter Plan of Treatment Upcoming Encounters Date Type Department Care Team ([facility] Contact Info) Description 08/03/2025 10:45 AM EST Office Visit [facility] MEDICINE [address] [place] [address] Jennifer Sultana NP [address] [place] [address] 09/18/2025 1:00 PM EST Office Visit [facility] OPTOMETRY [address] [place] [address] Meli Colon, OD [address] [place] [address] documented as of this encounter Visit Diagnoses Not on filedocumented in this encounter Additional Health Concerns Assessment Noted Time PHQ-9 Depression Total Score: 9 12/01/19 23 10:12 AM EDT documented as of this encounter Care Teams Form Setter Helper Relationship Specialty Start Date End Date Ju Khan ANP [address] [place] [address] PCP - General Family Medicine 03/20/22 07/27/24 Jennifer Sultana NP [address] [place] [address] PCP - General Family Medicine 07/28/24 Juanito Srinivasan Safety Representative 05/10/23 Francisco J Palomino Safety RepresentativeReimbursement Rep 05/16/23 Fawad Vargas Safety RepresentativeReimbursement Rep 08/11/24 documented as of this encounter
--- OUTSIDE RECORDS SUMMARY | 2025-06-25 16:49 | XMS_ITS | Encounter Summary ---
Author Organization [employer] Address [address] [place] [address] 7 [place] [address] Care Team Providers Care Sales Service Supervisor Name Role Phone Ju Khan ANP Primary Care Provider [phone] Jennifer Sultana OCEANOLOGIST Primary Care Provider [phone] Reason for Visit * Reason Onset Date Comments Referral 06/19/2023 Encounter Details Date Type Department Care Team ([facility] Contact Info) Description 06/19/2023 Telephone [facility] MEDICINE [address] [place] [address] Ju Khan ANP [address] [place], [place] [phone] Referral Social History Tobacco Use Types Packs/Day [...] from 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 Any questions, contact pt at [phone] documented in this encounter Plan of Treatment Upcoming Encounters Date Type Department Care Team (Late st Contact Info) Description 08/03/2025 10:45 AM EST Office Visit [facility] MEDICINE [address] [place] [address] Jennifer Sultana NP [address] [place] [address] 09/18/2025 1:00 PM EST Office Visit [facility] OPTOMETRY [address] [place] [address] Isaiah, Meli, OD [address] [place] [address] documented as of this encounter Visit Diagnoses Not on filedocumented in this encounter Additional Health Concerns Assessment Noted Time PHQ-9 Depression Total Score: 9 12/01/19 23 10:12 AM EDT documented as of this encounter Care Teams Sales Service Supervisor Relationship Specialty Start Date End Date Ju Khan ANP [address] [place] [address] PCP - General Family Medicine 03/20/22 07/27/24 Jennifer Sultana NP [address] [place] [address] PCP - General Family Medicine 07/28/24 Juanito Srinivasan Information Technology Manager 05/10/23 Francisco J Palomino Information Technology ManagerBaker 05/16/23 Fawad Vargas Information Technology ManagerBaker 08/11/24 documented as of this encounter
--- OUTSIDE RECORDS SUMMARY | 2025-06-25 16:49 | XMS_ITS | Encounter Summary ---
Author Organization [employer] Address [address] [facility] 7t [place] [address] Care Team Providers Care Manager Exchange Name Role Phone Jennifer Sultana NP Primary Care Provider Encounter Details Date Type Department Care Team ([facility] Contact Info) Description 08/12/2024 Telephone [facility] MEDICINE [address] [place] [address] Jennifer Sultana NP 230 [place] [address] Social History Tobacco Use Types Packs/Day Years [...] Description 08/03/2025 10:45 AM EST Office Visit [facility] MED[facility] [address] [place] [address] Jennifer Sultana NP [address] [place] [address] 09/18/2025 1:00 PM EST Office Visit [facility] OPTOMETRY [address] [place] [address] Isaiah, Meli, OD 230 [place] [address] documented as of this encounter Visit Diagnoses Not on filedocumented in this encounter Additional Health Concerns Assessment Noted Time PHQ-9 Depression Total Score: 27 024 2:31 PM EST documented as of this encounter Care Teams Manager Exchange Relationship Specialty Start Date End Date Jennifer Sultana NP [address] [place] [address] PCP - General Family Medicine 07/28/24 Juanito Srinivasan Water Quality Tester 05/10/23 Francisco J Palomino Water Quality TesterAutomatic Head Sawyer 05/16/23 Fawda Vargas Water Quality TesterAutomatic Head Sawyer 08/11/24 documented as of this encounter
--- OUTSIDE RECORDS SUMMARY | 2025-06-25 16:49 | XMS_ITS | Encounter Summary ---
Author Organization [employer] Address [address] [place] [address] 7 [place] [address] Care Team Providers Care Gage Maker Name Role Phone Ju Khan ANP Primary Care Provider [phone] Jennifer Sultana NP Primary Care Provider [phone] Reason for Visit * Reason Onset Date Comments PT1 06/19/2023 Encounter Details Date Type Department Care Team ([facility] Contact Info) Description 06/19/2023 Telephone [facility] MEDICINE [address] [place] [address] Ju Khan ANP 230 [place], [place] [phone] PT1 Social History Tobacco Use Types Packs/Day [...] encounter Miscellaneous Notes * Telephone Encounter - [facility] [facility] - 06/20/2023 12:23 PM EDT Patient will recieve approval / denial letter via mail. PT-1 Request [id number] Authorized - [address] [address] Wrote called and spoke with pt regarding PT1. [facility] PT1 is good through October 2023 & [facility] is good through 01/2024. Pt just needed [facility] * Telephone Encounter - Lupis Cano - 06/19/2023 2:15 PM EDT Tc from pt requesting PT1 renewal Date: n/a Time: n/a Visits: n/a Address: [address] [place] [address] willi WILSON [place] Facility: [facility] Wheel Chair: no, cane Cotton Classer Aide Needed: no Date: 07/04 Time: 12 PM Visits: n/a Address: [address] [place] [address] Willi Wilson [place] Facility: [facility] Wheel Chair: no, cane Cotton Classer Aide Needed: no documented in this encounter Plan of Treatment Upcoming Encounters Date Type Department Care Team (Late st Contact Info) Description 08/03/2025 10:45 AM EST Office Visit [facility] MEDICINE [address] [place] [address] Jennifer Sultana NP [address] [place] [address] 09/18/2025 1:00 PM EST Office Visit [facility] OPTOMETRY [address] [place], [place] [phone] Isaiah, Meli, OD 230 [place] [address] documented as of this encounter Visit Diagnoses Not on filedocumented in this encounter Additional Health Concerns Assessment Noted Time PHQ-9 Depression Total Score: 9 12/01/19 23 10:12 AM EDT documented as of this encounter Care Teams Gage Maker Relationship Specialty Start Date End Date Ju Khan ANP [address] [place], [place] [address] PCP - General Family Medicine 03/20/22 07/27/24 Jennifer Sultana NP 230 [place], [place] [phone] PCP - General Family Medicine 07/28/24 Juanito Srinivasan General Operations Agent 05/10/23 Francisco J Palomino General Operations AgentFiber Worker 05/16/23 Fawad Vargas General Operations AgentFiber Worker 08/11/24 documented as of this encounter
--- OUTSIDE RECORDS SUMMARY | 2025-06-25 16:49 | XMS_ITS | Encounter Summary ---
Author Organization [employer] Address [address] [facility] 7[address] [place] [address] Care Team Providers Care Lead Assembler Name Role Phone Jennifer Sultana NP Primary Care Provider [phone] Reason for Visit * Reason Comments Med Refill Encounter Details Date Type Department Care Team ([facility] Contact Info) Description 02/19/2025 Refill [facility] MEDICINE 230 [place], [place] [phone] Jennifer Sultana NP 230 [place] [address] Spondylosis 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 Social [...] 10:45 AM EST Office Visit [facility] MEDICINE [address] [place] [address] Jennifer Sultana NP 230 [place] [address] 09/18/2025 1:00 PM EST Office Visit [facility] OPTOMETRY [address] [place] [address] Isaiah, Meli, OD 230 [place] [address] documented as of this encounter Visit Diagnoses Diagnosis Spondylosis 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 documented in this encounter Additional Health Concerns Assessment Noted Time PHQ-9 Depression Total Score: 27 024 2:31 PM EST documented as of this encounter Care Teams Lead Assembler Relationship Specialty Start Date End Date Jennifer Sultana NP 230 [place] [address] PCP - General Family Medicine 07/28/24 Juanito Srinivasan Chemotherapist 05/10/23 Francisco J Palomino ChemotherapistDispute Specialist 05/16/23 Fawad Vargas ChemotherapistDispute Specialist 08/11/24 documented as of this encounter
--- OUTSIDE RECORDS SUMMARY | 2025-06-25 16:49 | XMS_ITS | Encounter Summary ---
Author Organization [employer] Address [address] [place] [address] 7 [place] [address] Care Team Providers Care Clam Bed Worker Name Role Phone Ju Khan ANP Primary Care Provider [phone] Jennifer Sultana RECRUITMENT DIRECTOR Primary Care Provider [phone] Reason for Visit * Reason Onset Date Comments PT-1 06/11/2024 Encounter Details Date Type Department Care Team ([facility] st Contact Info) Description 06/11/2024 Telephone [facility] MEDICINE 230 [place] [address] Ju Khan ANP 230 [place], [place] [phone] PT-1 Social History Tobacco Use Types Packs/Day [...] Y/N: Yes Provider name or facility name: [facility] (Dr. Philippe Evans) Facility Address: [address] [place] [address] Escort needed: Y/N: Yes Do you have a wheelchair: Y/N: No If yes- Manual or electric: (Uses walker and cane) Visits: 3 times a month - Patient calling requesting PT1 Home Address verified: Y/N: Yes Provider name or facility name: [facility] Facility Address: [address] [place] [address] Escort needed: Y/N: Yes Do you have a wheelchair: Y/N: No If yes- Manual or electric: Walker and Cane Visits: 4 a month - Patient calling requesting PT1 Home Address verified: Y/N: Yes Provider name or facility name: Ramez John MD Facility Address: [address] [place] [address] Escort needed: Y/N: Yes Do you have a wheelchair: Y/N: No If yes- Manual or electric: Walker and cane Visits: 3 monthly documented in this encounter Plan of Treatment Upcoming Encounters Date Type Department Care Team (Late st Contact Info) Description 08/03/2025 10:45 AM EST Office Visit [facility] MEDICINE [address] [place] [address] Jennifer Sultana, [place] 230 [place] [address] 09/18/2025 1:00 PM EST Office Visit [facility] OPTOMETRY [address] [place] [address] Meli Colon, OD 230 [place] [address] documented as of this encounter Visit Diagnoses Not on filedocumented in this encounter Additional Health Concerns Assessment Noted Time PHQ-9 Depression Total Score: 3 04/04/20 1:48 PM EDT documented as of this encounter Care Teams Clam Bed Worker Relationship Specialty Start Date End Date Ju Khan ANP [address] [place] [address] PCP - General Family Medicine 03/20/22 07/27/24 Jennifer Sultana NP [address] [place] [address] PCP - General Family Medicine 07/28/24 Juanito Srinivasan Manager Convention 05/10/23 Francisco J Palomino Manager ConventionResearch Administrator 05/16/23 Fawad Vargas Manager ConventionResearch Administrator 08/11/24 documented as of this encounter
--- OUTSIDE RECORDS SUMMARY | 2025-06-25 16:49 | XMS_ITS | Encounter Summary ---
Author Organization [employer] Address [address] [place] [address] 7 [place] [address] Care Team Providers Care Industrial Technology Education Teacher Name Role Phone Ju Khan ANP Primary Care Provider [phone] Jennifer Sultana NP Primary Care Provider [phone] Reason for Visit * Reason Onset Date Comments PT1 02/06/2024 Encounter Details Date Type Department Care Team ([facility] Contact Info) Description 02/06/2024 Telephone [facility] MEDICINE 230 [place] [address] Ju Khan ANP [address] [place], [place] [phone] PT1 Social History Tobacco Use Types Packs/Day [...] Y/N: Yes Provider name or facility name: [facility] Facility Address: [address] [place] [address] Escort needed: Y/N: Yes Do you have [...] Description 08/03/2025 10:45 AM EST Office Visit [facility] MEDICINE 230 [place] [address] Jennifer Sultana NP [address] [place] [address] 09/18/2025 1:00 PM EST Office Visit [facility] OPTOMETRY [address] [place] [address] Meli Colon, AVELINO [address] [place] [address] documented as of this encounter Visit Diagnoses Not on filedocumented in this encounter Additional Health Concerns Assessment Noted Time PHQ-9 Depression Total Score: 9 12/01/19 23 10:12 AM EDT documented as of this encounter Care Teams Industrial Technology Education Teacher Relationship Specialty Start Date End Date Ju Khan ANP [address] [place] [address] PCP - General Family Medicine 03/20/22 07/27/24 Jennifer Sultana NP [address] [place], [place] [phone] PCP - General Family Medicine 07/28/24 Juanito Srinivasan Mophead Sewer 05/10/23 Francisco J Palomino Mophead SewerSenior Training Specialist 05/16/23 Fawad Vargas Mophead SewerSenior Training Specialist 08/11/24 documented as of this encounter
--- OUTSIDE RECORDS SUMMARY | 2025-06-25 16:49 | XMS_ITS | Encounter Summary ---
Author Organization [employer] Address [address] [place] [address] 7 [place] [address] Care Team Providers Care Video News Editor Name Role Phone Jennifer Sultana NP Primary Care Provider [phone] Reason for Visit * Reason Onset Date Comments Referral 03/25/2025 Encounter Details Date Type Department Care Team ([facility] Contact Info) Description 03/25/2025 Telephone [facility] MEDICINE [address] [place] [address] Jennifer Sultana NP [address] [place] [address] Referral Social History Tobacco Use Types Packs/Day [...] pt who reports that female specialist at [facility] will not see her until she has completed an MRI of the spine. Pt states she is unsure of specialist's name but was advised to send MRI results to [phone]. Pt agrees to appt with Blue team provider next week as she needs time to arrange transportation. * Telephone Encounter - Dionisio Barragan - 03/25/2025 11:59 AM EDT Tc from pt requesting a referral for the MRI. For the spine. Any questions contact pt at [phone] documented in this encounter Plan of Treatment Upcoming Encounters Date Type Department Care Team (Late st Contact Info) Description 08/03/2025 10:45 AM EST Office Visit [facility] MEDICINE [address] [place] [address] Jennifer Sultana NP [address] [place], [place] [phone] 09/18/2025 1:00 PM EST Office Visit [facility] OPTOMETRY [address] [place] [address] Meli Colon, OD [address] [place] [address] documented as of this encounter Visit Diagnoses Not on filedocumented in this encounter Additional Health Concerns Assessment Noted Time PHQ-9 Depression Total Score: 27 024 2:31 PM EST documented as of this encounter Care Teams Video News Editor Relationship Specialty Start Date End Date Jennifer Sultana NP [address] [place] [address] PCP - General Family Medicine 07/28/24 Juanito Srinivasan Curator 05/10/23 Francisco J Palomino CuratorGenetic Scientist 05/16/23 Fawad Vargas CuratorGenetic Scientist 08/11/24 documented as of this encounter
--- OUTSIDE RECORDS SUMMARY | 2025-06-25 16:49 | XMS_ITS | Encounter Summary ---
Author Organization [employer] Address [address] [place] [address] 7 [place] [address] Care Team Providers Care Wireless Internet Installer Name Role Phone Ju Khan ANP Primary Care Provider [phone] Jennifer Sultana NP Primary Care Provider [phone] Reason for Visit * Reason Onset Date Comments PT1 06/15/2023 Encounter Details Date Type Department Care Team ([facility] Contact Info) Description 06/15/2023 Telephone [facility] MEDICINE 230 [place] [address] Ju Khan ANP 230 [place], [place] [phone] PT1 Social History Tobacco Use Types Packs/Day [...] 06/27/2023 Time: 2:45 Visits: 2 monthly Address: [address] [place] [address] Facility: [facility] Wheel Chair: no/cane Mechanic Assistant Needed: no & Date: 07/17/2023 Time: 2:00 Visits: 3 monthly Address: [address] [place] [address] Facility: [facility] Wheel Chair: no/cane Mechanic Assistant Needed: no documented in this encounter Plan of Treatment Upcoming Encounters Date Type Department Care Team ([facility] st Contact Info) Description 08/03/2025 10:45 AM EST Office Visit [facility] MEDICINE [address] [place] [address] Jennifer Sultana NP [address] [place] [address] 09/18/2025 1:00 PM EST Office Visit [facility] OPTOMETRY [address] [place] [address] Isaiah, Meli, OD [address] [place] [address] documented as of this encounter Visit Diagnoses Not on filedocumented in this encounter Additional Health Concerns Assessment Noted Time PHQ-9 Depression Total Score: 9 12/01/19 23 10:12 AM EDT documented as of this encounter Care Teams Wireless Internet Installer Relationship Specialty Start Date End Date Ju Khan ANP [address] [place] [address] PCP - General Family Medicine 03/20/22 07/27/24 Jennifer Sultana NP [address] [place] [address] PCP - General Family Medicine 07/28/24 Juanito Srinivasan Heel Seater 05/10/23 Francisco J Palomino Heel SeaterDamper Worker 05/16/23 Fawda Vargas Heel SeaterDamper Worker 08/11/24 documented as of this encounter
--- OUTSIDE RECORDS SUMMARY | 2025-06-25 16:49 | XMS_ITS | Encounter Summary ---
Author Organization [employer] Address [address] [place] [address] [address] [place] [address] Care Team Providers Care Service Tech/Welder Name Role Phone Jennifer Sultana NP Primary Care Provider Reason for Visit * Reason Onset Date Comments Reschedule 08/22/2024 Encounter Details Date Type Department Care Team ([facility] Contact Info) Description 08/22/2024 Telephone [facility] MEDICINE [address] [place] [address] Jennifer Sultana NP [address] [place] [address] Reschedule Social History Tobacco Use Types Packs/Day [...] Description 08/03/2025 10:45 AM EST Office Visit [facility] MEDICINE [address] [place] [address] Jennifer Sultana NP [address] [place] [address] 09/18/2025 1:00 PM EST Office Visit [facility] OPTOMETRY [address] [place], [place] [phone] Meli Colon OD [address] [place] [address] documented as of this encounter Visit Diagnoses Not on filedocumented in this encounter Additional Health Concerns Assessment Noted Time PHQ-9 Depression Total Score: 27 024 2:31 PM EST documented as of this encounter Care Teams Service Tech/Welder Relationship Specialty Start Date End Date Jennifer Sultana NP [address] [place] [address] PCP - General Family Medicine 07/28/24 Juanito Srinivasan Dungeon Master 05/10/23 Francisco J Palomino Dungeon MasterVegetable Farmer 05/16/23 Fawad Vargas Dungeon MasterVegetable Farmer 08/11/24 documented as of this encounter
--- OUTSIDE RECORDS SUMMARY | 2025-06-25 16:49 | XMS_ITS | Encounter Summary ---
Author Organization [employer] Address [address] [place] [address] 7t [place] [address] Care Team Providers Care Abe Teacher Name Role Phone Jennifer Sultana NP Primary Care Provider [phone] Reason for Visit * Reason Comments Med Refill Encounter Details Date Type Department Care Team ([facility] Contact Info) Description 04/02/2025 Refill [facility] MEDICINE [address] [place], [place] [phone] Bree Love MD 230 [place], [place] [phone] Spondylosis 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 Social [...] Description 08/03/2025 10:45 AM EST Office Visit [facility] MEDICINE [address] [place] [address] Jennifer Sultana NP [address] [place] [address] 09/18/2025 1:00 PM EST Office Visit [facility] OPTOMETRY [address] [place] [address] Isaiah, Meli, OD [address] [place] [address] documented as of this encounter Visit Diagnoses Diagnosis Spondylosis 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 documented in this encounter Additional Health Concerns Assessment Noted Time PHQ-9 Depression Total Score: 27 024 2:31 PM EST documented as of this encounter Care Teams Abe Teacher Relationship Specialty Start Date End Date Jennifer Sultana NP [address] [place] [address] PCP - General Family Medicine 07/28/24 Juanito Srinivasan Water Quality Technician 05/10/23 Francisco J Palomino Water Quality TechnicianFund Development Manager 05/16/23 Fawad Vargas Water Quality TechnicianFund Development Manager 08/11/24 documented as of this encounter
--- OUTSIDE RECORDS SUMMARY | 2025-06-25 16:49 | XMS_ITS | Encounter Summary ---
Author Organization [employer] Address [address] [place] [address] 7t [place] [address] Care Team Providers Care Brine Well Operator Name Role Phone Jennifer Sultana NP Primary Care Provider [phone] Reason for Visit * Reason Comments Med Refill Encounter Details Date Type Department Care Team ([facility] Contact Info) Description 08/10/2024 Refill [facility] MEDICINE 230 [place], [place] [phone] Ju Khan, ANP 230 [place] [address] Spondylosis 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 Social [...] Description 08/03/2025 10:45 AM EST Office Visit [facility] MEDICINE [address] [place] [address] Jennifer Sultana NP 230 [place] [address] 09/18/2025 1:00 PM EST Office Visit [facility] OPTOMETRY [address] [place] [address] Isaiah, Meli, OD [address] [place] [address] documented as of this encounter Visit Diagnoses Diagnosis Spondylosis 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 documented in this encounter Additional Health Concerns Assessment Noted Time PHQ-9 Depression Total Score: 27 024 2:31 PM EST documented as of this encounter Care Teams Brine Well Operator Relationship Specialty Start Date End Date Jennifer Sultana NP [address] [place] [address] PCP - General Family Medicine 07/28/24 Juanito Srinivasan Applications Development Analyst 05/10/23 Francisco J Palomino Applications Development AnalystDetective Lieutenant 05/16/23 Fawad Vargas Applications Development AnalystDetective Lieutenant 08/11/24 documented as of this encounter
--- OUTSIDE RECORDS SUMMARY | 2025-06-25 16:49 | XMS_ITS | Encounter Summary ---
Author Organization [employer] Address [address] [place] [address] Care Team Providers Care Senior Game Advisor Name Role Phone Ju Khan Primary Care Provider [phone] Jennifer Sultana NP Primary Care Provider [phone] Reason for Visit * Reason Comments Med Refill Encounter Details Date Type Department Care Team (Late Contact Info) Description 05/23/2023 Refill [facility] MEDICINE [address] [place], [place] [phone] Ju Khan ANP 230 [place], [place] [phone] Multiple joint pain Social History Tobacco Use [...] Department Care Team (Late Contact Info) Description 08/03/2025 10:45 AM EST Office Visit [facility] MEDICINE [address] [place], [place] [phone] Jennifer Sultana NP [address] [place] [address] 09/18/2025 1:00 PM EST Office Visit [facility] OPTOMETRY [address] [place], [place] [phone] Meli Colon, OD [address] [place] [address] documented as of this encounter Visit Diagnoses Diagnosis Multiple joint pain Pain in joint, multiple sites documented in this encounter Additional Health Concerns Assessment Noted Time PHQ-9 Depression Total Score: 9 12/01/19 23 10:12 AM EDT documented as of this encounter Care Teams Senior Game Advisor Relationship Specialty Start Date End Date Ju Khan ANP 230 [place] [address] PCP - General Family Medicine 03/20/22 07/27/24 Jennifer Sultana NP [address] [place] [address] PCP - General Family Medicine 07/28/24 Juanito Srinivasan Assessment Expert 05/10/23 Francisco J Palomino Assessment ExpertCertified Hyperbaric Technician 05/16/23 Fawad Vargas Assessment ExpertCertified Hyperbaric Technician 08/11/24 documented as of this encounter
--- OUTSIDE RECORDS SUMMARY | 2025-06-25 16:49 | XMS_ITS | Encounter Summary ---
Author Organization [employer] Address [address] [place] [address] [address] Care Team Providers Care Wink Cutter Operator Name Role Phone Ju Khan ANP Primary Care Provider [phone] Jennifer Sultana C.O.D. BILLER Primary Care Provider [phone] Reason for Visit * Reason Onset Date Comments Med Refill 03/22/2023 Encounter Details Date Type Department Care Team ([facility] st Contact Info) Description 03/22/2023 Telephone [facility] MEDICINE 230 [place] [address] Ju Khan ANP 230 [place], [place] [phone] Med Refill Social History Tobacco Use Types [...] Description 08/03/2025 10:45 AM EST Office Visit [facility] MEDICINE [address] [place] [address] Jennifer Sultana NP 230 [place] [address] 09/18/2025 1:00 PM EST Office Visit [facility] OPTOMETRY [address] [place] [address] Meli Colon, OD 230 [place] [address] documented as of this encounter Visit Diagnoses Not on filedocumented in this encounter Additional Health Concerns Assessment Noted Time PHQ-9 Depression Total Score: 9 12/01/19 23 10:12 AM EDT documented as of this encounter Care Teams Wink Cutter Operator Relationship Specialty Start Date End Date Ju Khan ANP 230 [place] [address] PCP - General Family Medicine 03/20/22 07/27/24 Jnenifer Sultana NP 230 [place] [address] PCP - General Family Medicine 07/28/24 Juanito Srinivasan Medical Technologist Prn 05/10/23 Francisco J Palomino Medical Technologist PrnEngineering Clerk 05/16/23 Fawad Vargas Medical Technologist PrnEngineering Clerk 08/11/24 documented as of this encounter
--- OUTSIDE RECORDS SUMMARY | 2025-06-25 16:49 | XMS_ITS | Encounter Summary ---
Author Organization [employer] Address [address] [place] [address] 7[place] [address] Care Team Providers Care Pet House Sitter Name Role Phone Ju Khan ANP Primary Care Provider [phone] Jennifer Sultana TELEPATHIST Primary Care Provider [phone] Reason for Visit * Reason Onset Date Comments PT1 03/09/2023 Encounter Details Date Type Department Care Team ([facility] Contact Info) Description 03/09/2023 Telephone [facility] MEDICINE 230 [place] [address] Ju Khan ANP 230 [place] [address] PT1 Social History Tobacco Use Types Packs/Day [...] PM EDT PT1 initiated for [facility] in [facility] will send pt a letter with instructions * Telephone Encounter - Lupis Cano - 03/09/2023 1:13 PM EDT Tc from pt requesting a PT1 PT1 Date: TBD Time: TBD Address: [address] [place] [address] Specialty: radiculopathy Facility: [facility] Perfumer: no Wheelchair: no, cane documented in this encounter Plan of Treatment Upcoming Encounters Date Type Department Care Team (Late st Contact Info) Description 08/03/2025 10:45 AM EST Office Visit [facility] MEDICINE [address] [place] [address] Jennifer Sultana NP 230 [place] [address] 09/18/2025 1:00 PM EST Office Visit [facility] OPTOMETRY [address] [place] [address] Isaiah, Meli, OD 230 [place] [address] documented as of this encounter Visit Diagnoses Not on filedocumented in this encounter Additional Health Concerns Assessment Noted Time PHQ-9 Depression Total Score: 9 12/01/19 23 10:12 AM EDT documented as of this encounter Care Teams Pet House Sitter Relationship Specialty Start Date End Date Ju Khan ANP 230 [place] [address] PCP - General Family Medicine 03/20/22 07/27/24 Jennifer Sultana NP 230 [place] [address] PCP - General Family Medicine 07/28/24 Juanito Srinivasan Open Hearth Furnace Laborer 05/10/23 Francisco J Palomino Open Hearth Furnace LaborerMicroarray Analyst 05/16/23 Fawad Vargas Open Hearth Furnace LaborerMicroarray Analyst 08/11/24 documented as of this encounter
--- OUTSIDE RECORDS SUMMARY | 2025-06-25 16:49 | XMS_ITS | Encounter Summary ---
Author Organization [employer] Address [address] [place] [address] 7 [place] [address] Care Team Providers Care Sap Grc Security Name Role Phone Ju Khan ANP Primary Care Provider [phone] Jennifer Sultana NP Primary Care Provider [phone] Reason for Visit * Reason Comments Med Refill Encounter Details Date Type Department Care Team ([facility] st Contact Info) Description 07/15/2024 Refill [facility] MEDICINE 230 [place] [address] Ju Khna ANP 230 [place] [address] Multiple joint pain Social History Tobacco Use [...] Description 08/03/2025 10:45 AM EST Office Visit [facility] MEDICINE [address] [place] [address] Jennifer Sultana NP 230 [place] [address] 09/18/2025 1:00 PM EST Office Visit [facility] OPTOMETRY [address] [place] [address] Meli Colon, OD 230 [place] [address] documented as of this encounter Visit Diagnoses Diagnosis Multiple joint pain Pain in joint, multiple sites documented in this encounter Additional Health Concerns Assessment Noted Time PHQ-9 Depression Total Score: 3 04/04/20 24 1:48 PM EDT documented as of this encounter Care Teams Sap Grc Security Relationship Specialty Start Date End Date Ju Khan ANP 230 [place] [address] PCP - General Family Medicine 03/20/22 07/27/24 Jennifer Sultana NP [address] [place] [address] PCP - General Family Medicine 07/28/24 Juanito Srinivasan Colorer Hides And Skins 05/10/23 Francisco J Palomino Colorer Hides And SkinsSnaker Tractor Driver 05/16/23 Fawad Vargas Colorer Hides And SkinsSnaker Tractor Driver 08/11/24 documented as of this encounter
--- OUTSIDE RECORDS SUMMARY | 2025-06-25 16:49 | XMS_ITS | Encounter Summary ---
Author Organization [employer] Address [address] [place] [address] 7 [place] [address] Care Team Providers Care Screwdown Operator Name Role Phone Jennifer Sultana NP Primary Care Provider [phone] Reason for Visit * Reason Onset Date Comments PT1 03/25/2025 Encounter Details Date Type Department Care Team ([facility] [place] Contact Info) Description 03/25/2025 Telephone [facility] MEDICINE 230 [place] [address] Jennifer Sultana NP [address] [place] [address] PT1 Social History Tobacco Use Types Packs/Day [...] Y/N: Yes Provider name or facility name: [address] [place] [address] Escort needed: Y/N: Yes Do you have a wheelchair: Y/N: No Visits: (2x) documented in this encounter Plan of Treatment Upcoming Encounters Date Type Department Care Team (Late st Contact Info) Description 08/03/2025 10:45 AM EST Office Visit [facility] MEDICINE [address] [place] [address] Jennifer Sultana NP [address] [place] [address] 09/18/2025 1:00 PM EST Office Visit [facility] OPTOMETRY [address] [place] [address] Meli Colon, OD [address] [place] [address] documented as of this encounter Visit Diagnoses Not on filedocumented in this encounter Additional Health Concerns Assessment Noted Time PHQ-9 Depression Total Score: 27 024 2:31 PM EST documented as of this encounter Care Teams Screwdown Operator Relationship Specialty Start Date End Date Jennifer Sultana NP [address] [place] [address] PCP - General Family Medicine 07/28/24 Juanito Srinivasan Enterprise Account Manager 05/10/23 Francisco J Palomino Enterprise Account ManagerSenior Advisor 05/16/23 Fawad Vargas Enterprise Account ManagerSenior Advisor 08/11/24 documented as of this encounter
--- OUTSIDE RECORDS SUMMARY | 2025-06-25 16:49 | XMS_ITS | Encounter Summary ---
Author Organization [employer] Address [address] [place] [address] 7 [place] [address] Care Team Providers Care Squeezer Operator Name Role Phone Ju Khan ANP Primary Care Provider [phone] Jennifer Sultana NP Primary Care Provider [phone] Reason for Visit * Reason Onset Date Comments PT1 06/18/2023 Encounter Details Date Type Department Care Team ([facility] Contact Info) Description 06/18/2023 Telephone [facility] MEDICINE 230 [place] [address] Ju Khan ANP 230 [place], [place] [phone] PT1 Social History Tobacco Use Types Packs/Day [...] 2:19 PM EDT PT1 Name of facility: [facility] Specialty: Follow up with PCP Location: [address] [place] [address] Date: 07/02/2023 Time: 3:00 pm fax: [phone] wheelchair: NO Crate Builder: NO Visits: Pt states for all future appts documented in this encounter Plan of Treatment Upcoming Encounters Date Type Department Care Team (Late st Contact Info) Description 08/03/2025 10:45 AM EST Office Visit [facility] MEDICINE 230 [place] [address] Jennifer Sultana NP [address] [place] [address] 09/18/2025 1:00 PM EST Office Visit [facility] OPTOMETRY [address] [place] [address] Meli Colon OD [address] [place] [address] documented as of this encounter Visit Diagnoses Not on filedocumented in this encounter Additional Health Concerns Assessment Noted Time PHQ-9 Depression Total Score: 9 12/01/19 23 10:12 AM EDT documented as of this encounter Care Teams Squeezer Operator Relationship Specialty Start Date End Date Ju Khan ANP 230 [place] [address] PCP - General Family Medicine 03/20/22 07/27/24 Jennifer Sultana NP [address] [place], [place] [phone] PCP - General Family Medicine 07/28/24 Juanito Srinivasan Cold Working Inspector 05/10/23 Francisco J Palomino Cold Working InspectorTop Coater 05/16/23 Fawad Vargas Cold Working InspectorTop Coater 08/11/24 documented as of this encounter
--- OUTSIDE RECORDS SUMMARY | 2025-06-25 16:49 | XMS_ITS | Clinical Summary ---
Author Organization [facility] Address [address] [place] [address] Phone Care Team Providers Care Promotional Representative Name Role Phone Jennifer Sultana PRATIK Primary Care Provider [phone] Allergies Active Allergy Reactions Criticality Noted Date [...] Care Team (Late st Contact Info) Description 08/31/2025 2:15 PM EST Office Visit [facility] [address] [place] [phone] Artie Goodrich, LEENA [address] [place] [phone] Health Maintenance Due Date Last Done Comments [...] topic Insurance MEDICAID - [place] Care Teams Promotional Representative Relationship Specialty Start Date End Date Jennifer Sultana FNP [address] [place] [address] PCP - General Nurse Practitioner 08/18/24
--- OUTSIDE RECORDS SUMMARY | 2025-06-25 16:50 | XMS_ITS | Encounter Summary ---
Author Organization [facility] Address [address] [facility] [address] [place] [address] Phone Care Team Providers Care Industrial Manufacturing Technician Name Role Phone Nick Tejada DO Primary Care Provider [phone] Encounter Details Date Type Department Care Team (Late st Contact Info) Description 05/30/2018 Ancillary Orders [facility] [address] [place] [address] Nick Tejada DO [address] [place] [address] Dizziness Social History Tobacco Use Types Packs/Day [...] giddiness documented in this encounter Care Teams Industrial Manufacturing Technician Relationship Specialty Start Date End Date Nick Tejada [address] [place] [address] PCP - General Cardiology 05/29/18 documented as of this encounter Additional Source Comments The information contained in this document represents components of the legal health record. It is not the complete legal health record.[facility]
--- OUTSIDE RECORDS SUMMARY | 2025-06-25 16:50 | XMS_ITS | Clinical Summary ---
Author Organization [facility] Address [address] [facility] [address] [place] [address] Phone Care Team Providers Care Tire Stripper Name Role Phone Nick Tejada DO Primary Care Provider [phone] Social History Tobacco Use Types Packs/Day Years [...] file Medical Devices Not on file Insurance [facility] ACO C3 ACO C3 ACO C3 ACO C3 ACO [place] [place] [address] [place] [address] [place] [address] [place] [address] [place] [address] [place] [address] C3 ACO Care Teams Tire Stripper Relationship Specialty Start Date End Date Nick Tejada DO [address] [place] [address] PCP - General Cardiology 05/29/18 Additional Source Comments The information contained in this document represents components of the legal health record. It is not the complete legal health record.[facility]
--- OUTSIDE RECORDS SUMMARY | 2025-06-25 16:50 | XMS_ITS | Encounter Summary ---
Demographics Address [address] [facility] [address] [place] [address] Home Phone Mobile Phone Work Phone Email Address Preferred Language en Marital Status Buddhism Affiliation Unknown Race White Ethnic Group Unknown Author Organization [employer] Address [address] [place] [address] 7t [place] [address] Care Team Providers Care Battery Test Engineer Name Role Phone Ju Khan ANP Primary Care Provider [phone] Jennifer Sultana SLIP DUMPER Primary Care Provider [phone] Reason for Visit * Reason Comments Med Refill Encounter Details Date Type Department Care Team (Late st Contact Info) Description 11/07/2023 Refill [facility] MEDICINE [address] [place] [address] Ju Khan ANP [address] [place] [address] Spondylosis 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 Social [...] Description 08/03/2025 10:45 AM EST Office Visit [facility] MEDICINE 230 [place] [address] Jennifer Sultana NP [address] [place] [address] 09/18/2025 1:00 PM EST Office Visit [facility] OPTOMETRY [address] [place] [address] Isaiah, Meli, OD 230 [place] [address] documented as of this encounter Visit Diagnoses Diagnosis Spondylosis 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 documented in this encounter Additional Health Concerns Assessment Noted Time PHQ-9 Depression Total Score: 9 12/01/19 23 10:12 AM EDT documented as of this encounter Care Teams Battery Test Engineer Relationship Specialty Start Date End Date Ju Khan ANP [address] [place] [address] PCP - General Family Medicine 03/20/22 07/27/24 Jennifer Sultana NP [address] [place] [address] PCP - General Family Medicine 07/28/24 Juanito Srinivasan Speech And Language Assistant 05/10/23 Francisco J Palomino Speech And Language AssistantModel Artists' 05/16/23 Fawad Vargas Speech And Language AssistantModel Artists' 08/11/24 documented as of this encounter
--- OUTSIDE RECORDS SUMMARY | 2025-06-25 16:50 | XMS_ITS | Clinical Summary ---
Author Organization [employer] Address [address] [place] [address] [address] [place] [address] Care Team Providers Care Barrel Washer Name Role Phone Jennifer Sultana NP Primary Care Provider [phone] Allergies Active Allergy Reactions Criticality Noted Date [...] exacerbation of chroni c obstructive airways disease ([facility]) 08/25/2022 11/30/2022 Perichondritis of pinna 05/17/2018 04/0 01/2023 Encounters Date Type Department Care Team Description 06/16/2025 Refill [facility] [address] [place] [address] Jennifer Sultana NP Spondylosis 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 06/10/2025 Telephone [facility] [address] [place] [address] Jennifer Sultana NP Referral 06/03/[address] [address] Jennifer Sultana NP Durable Medical Equipment 05/31/[address] [address] Jennifer Sultana NP 05/25/2025 Patient Outreach [facility] [address] [place] [address] Jennifer Sultana NP Pre-visit Planning (SDOH unable to reach LVM ) 05/08/2025 Patient Outreach [facility] [address] [place] [address] Jennifer Sultana NP Pre-visit Planning (SDOH unable to reach LVM) 05/08/2025 Telephone [facility] [address] [place] [address] Jennifer Sultana NP Chart Prep 05/07/[address] [address] Jennifer Sultana NP Med Refill 05/05/2025 Refill [facility] [address] [place] [address] Jennifer Sultana NP Spondylosis 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 04/28/[address] [address] Jennifer Sultana NP Error (VOID this visit) 04/20/2025 Refill [facility] [address] [place] [address] Jennifer Sultana NP Gastroesophageal reflux disease, unspecified whether esophagitis present 04/16/[address] [address] Jennifer Sultana NP Referral 04/10/2025 2:45 PM EDT Office Visit [address] [address] Nerissa Henriquez CNP Nonintractable chronic migraine (Primary Dx); Physiologic anisocoria 04/10/2025 Travel 04/09/[address] [address] Jennifer Sultana NP ER Follow-up 04/09/[address] [address] Jennifer Sultana NP ER Follow-up 04/08/2025 Orders Only GENERIC EXTERNAL DATA DEPARTMENT Provider, Generic External Data 04/06/[address] [address] Bree Love MD Spondylosis 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 04/06/[address] [address] Jennifer Sultana NP chartprep 04/02/[address] [address] Victoria Santos FNP Chart Prep 04/02/[address] [address] Bree Love MD Spondylosis 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 03/30/2025 Patient Outreach [address] [address] Jennifer Sultana NP Care Coordination (CHW outreach for SDOH food needs-referral completed /) 03/30/2025 Patient Outreach [address] [address] Jennifer Sultana NP Pre-visit Planning (SDOH screening positive and Tobacco screening positive) 03/25/2025 Patient Outreach [address] [address] Jennifer Sultana, [place] Care Coordination (CHW outreach for SDOH PT-1 and food needs-referral completed /) 03/25/2025 Telephone [facility] [address] [place] [address] Jennifer Sultana, [place] Referral 03/25/2025 Telephone [facility] [address] [place] [address] Jennifer Sultana, [place] PT1 from Last 3 [...] Description 08/03/2025 10:45 AM EST Office Visit [facility] [address] [place], [place] [phone] Jennifer Sultana NP [address] [place] [address] 09/18/2025 1:00 PM EST Office Visit [facility] [address] [place] [address] Meli Colon, OD [address] [place] [address] Health Maintenance Due Date Last Done Comments [...] PM EDT Narrative 04/08/2025 6:13 PM EDT [address] [address] [address] Scan Report Signed Patient: Cherri Nash MR#: [id number] : 1965 Acct:[id number] Age/Sex: 60 / F ADM Date: 04/08/25 Loc: HO.ED Attending Dr: Ordering Physician: Bobbi Ríos Date of Service: 04/08/25 Procedure(s): CT angio head neck Accession Number(s): [id number] cc: Jennifer Sultana SALES CENTER ASSOCIATE; Bobbi Ríos Report Number: [id number]: Total DLP = 1381.00 mGy-cm CLINICAL HISTORY: [...] in OV> 04/08/251812 DD/ 11 TD/TT: 04/08/251811 Pulvi Mixer Operator: Procedure Note Donotuseinterpreter, Image - 04/08/[address] [address] [address] Scan Report Signed Patient: Cherri Nash R#: [id number] : 1965Acct:[id number] Age/Sex: 60 / FADM Date: 04/08/25 Loc: HO.ED Attending Dr: Ordering Physician: Bobbi Ríos Date of Service: 04/08/25 Procedure(s): CT angio head neck Accession Number(s): [id number] cc: Jennifer Sultana SALES CENTER ASSOCIATE; Bobbi Ríos Report Number: [id number]: Total DLP = 1381.00 mGy-cm CLINICAL HISTORY: [...] in OV> 04/08/251812 DD/ 11 TD/TT: 04/08/251811 Pulvi Mixer Operator: [facility] External Provider IMG CT PROCEDURES Final Result * (ABNORMAL) CBC auto differential (04/08/2025 12:52 PM EDT) White Blood Count 10.2 4.8 - 10.8 X10*3/uL [facility] Red Blood Count 4.71 4.20 - 5.50 X10*6/uL [facility] Hemoglobin 13.1 12.0 - 16.0 g/dl [facility] Hematocrit 40.1 37.0 - 47.0 % [facility] Mean Corpuscular Volume 85.1 80.0 - 98.0 fL [facility] Mean Corpuscular Hemoglobin 27.8 27.0 - 33.0 pg [facility] Mean Corpuscular HGB Conc 32.7 31.0 - 35.0 g/dl [facility] Red Cell Distribution Width 15.4 11.0 - 16.0 % [facility] Platelet Count 242 160 - 400 X10*3/uL [facility] Mean Platelet Volume 11.5 9.4 - 12.3 fL [facility] Neutrophils Percent Auto 73.7(H) 45 - 73 % [facility] Imm Gran Pct Auto 0.3 0.0 - 0.4 % [facility] Lymphocytes Percent Auto 15.4(L) 20 - 40 % [facility] Monocytes Percent Auto 6.4 2 - 11 % [facility] Eosinophils Percent Auto 3.5 0 - 4 % [facility] Basophils Percent Auto 0.7 0 - 2 % [facility] NRBC Pct Auto 0.0 0.0 - 0.2 /100WBC [facility] Neutrophils Absolute Auto 7.5 2.0 - 8.3 x10*3/uL [facility] Imm Gran Abs Auto 0.03 0.00 - 0.03 X10*3/uL [facility] Lymphocytes Absolute Auto 1.6 1.2 - 4.9 X10*3/uL [facility] Monocytes Absolute Auto 0.7 0.1 - 1.2 X10*3/uL [facility] Eosinophils Absolute Auto 0.4 0.0 - 0.4 X10*3/uL [facility] Basophils Absolute Auto 0.1 0.0 - 0.2 X10*3/uL [facility] NRBC Abs Auto 0.000 0.0 - 0.012 X10*3/uL [facility] 04/08/2025 12:5 2 PM EDT 04/08/2025 1:16 PM EDT us Generic External Data Provider LAB BLOOD ORDERAB LES Final Result [facility] [address] [place] [address] [phone] * Comprehensive Metabolic Panel (04/08/2025 12:52 PM EDT) Sodium 142 135 - 145 mmol/L [facility] Potassium 3.3 3.3 - 5.1 mmol/L [facility] Chloride 102 96 - 108 mmol/L [facility] Carbon Dioxide 29 22 - 29 mmol/L [facility] Anion Gap 14 12 - 20 [facility] Urea Nitrogen (BUN) 10 9 - 16 mg/dL [facility] Creatinine, Serum 1.06 0.5 - 1.4 mg/dL [facility] Creatinine Clr Calc Pharmacy 58.5 [facility] Comment:Provided height and weight: 165.1 cm,74.8 kg.eGFR (calculated from the MDRD study equation) and eCrCl(calculated from the Cockcroft-Gault equation) are based ondifferent parameters and may not yield comparable results.If eCrCl result is absurd, please check patient'sheight/weight. Estimated Glomerular Filt Rate 53 [facility] Comment:Chronic Kidney Disea se: Estimated GFR < 60 mL/min/1.95l3Lduqqu Kidney Disease: Estimated GFR < 15 mL/min/1.73m2 Glucose 80 60 - 115 mg/dL [facility] Calcium 10.1 8.4 - 10.2 mg/dL [facility] Bilirubin, Total 0.3 0.0 - 1.0 mg/dL [facility] Aspartate Amino Transferase 17 5 - 31 U/L [facility] Alanine Aminotransferase 9 0 - 31 U/L [facility] Total Protein 7.8 6.5 - 8.0 g/dL [facility] Albumin Level 4.0 3.5 - 5.0 g/dL [facility] Alkaline Phosphatase 99 39 - 117 U/L [facility] 04/08/2025 12:5 2 PM EDT 04/08/2025 1:16 PM EDT us Generic External Data Provider LAB BLOOD ORDERAB LES Final Result Performing Organization Address City/State/[facility] Co de Phone Number [facility] [address] [place] [address] [phone] * BI Mammogram Screening Tomosynthesis Bilateral (06/19/2024 1:23 PM EDT) Anatomical Region Laterality Modality Breast Bilateral Mammography 06/19/2024 1:23 PM EDT Narrative 06/28/2024 10:33 AM EDT [address] [place] [address] Mammography Report Signed Patient: Cherri Nash MR#: [id number] : 1965 Acct:[id number] Age/Sex: 59 / F ADM Date: 06/19/24 Loc: HO.MAMMO Attending Dr: Manolo Garcia NP Ordering Physician: MANOLO GARCIA NP Results: 1Negative Date of Service: 06/19/24 Follow Up: 1 Year From Orig ina Mammogram Procedure(s): MM tomosynthesis screening BI Accession Number(s): [id number] cc: MANOLO GARCIA NP EXAMINATION: MM SCREENING [...] their next mammogram. Electronically signed by: Sally Hernadnez DO 06/28/2024 10:30 AM EDT RP Dictated By: Sally Hernandez DO Signed By: <Electronically signed by Sally Hernandez DO in OV> 06/28/24 1030 DD/ 1323 TD/TT: 06/19/24 1336 Pulvi Mixer Operator: Procedure Note Donotuseinterpreter, Image - 06/28/2024 [facility] [address] [place], [place] [address] Mammography Report Signed Patient: Cherri Nash JMR#: [id number] : 1965Acct:[id number] Age/Sex: 59 / FADM Date: 06/19/24 Loc: HO.MAMMO Attending Dr: Manolo Garcia NP Ordering Physician: MANOLO GARCIA NPResults: 1Negative Date of Service: 06/19/24Follow Up: 1 Year From Orig inal Mammogram Procedure(s): MM tomosynthesis screening BI Accession Number(s): [id number] cc: MANOLO GARCIA NP EXAMINATION: MM SCREENING [...] 06/28/24 1030 DD/ 1323 TD/TT: 06/19/24 1336 Pulvi Mixer Operator: us Manolo Garcia ANP IMG BI PROCEDURES Final Result * (ABNORMAL) Lipid Panel, Standard (05/02/2024 2:55 PM EDT) Triglycerides 286(H) <150 mg/dL [facility] Comment:Desirable Triglyceri de: less than 150 mg/dLBorderline High Triglyceride 150-199 mg/dLHigh Triglyceride: 200-499 mg/dLVery High Triglyceride: greater than or equal to 5OO mg/dL Cholesterol 216(H) <200 mg/dL [facility] Comment:Desirable Cholestero l: less than 200 mg/dLBorderline High Cholesterol: 200-239 mg/dLHigh Cholesterol: greater than 239 mg/dL LDL Cholesterol Calculated 123(H) <100 mg/dL [facility] Comment:Desirable LDL: less than 100 mg/dLNear Optimal/Above Optimal LDL: 110- 129 mg/dLBorderline High LDL: 130-159 mg/dLHigh LDL: 160-189 mg/dLVery High LDL: greater than or equal to 190 mg/dL HDL Cholesterol 36(L) >40 mg/dL [facility] Comment:Desirable HDL: great er than 40 mg/dL Note: This HDL assay may give artificially low results in patients with liver disease. 05/02/2024 2:55 PM EDT 05/02/2024 4:04 PM EDT us Manolo Garcia ANP LAB BLOOD ORDERABLES Final Resul t [facility] [address] [place] [phone] * HIV 1/2 ANTIGEN/ANTIBODY,FOURTH GENERATION W/RFL (05/08/2022 2:27 PM EDT) HIV-1/2 ANTIGEN AND ANTIBODIES, 4TH GENERATION W/ REFLEX NON-REACT IRON NON-REACT IRON [facility] Comment: HIV-1 antigen and [...] purpose. For additional information please refer to http://G[employer]/faq/FKS322 (This link is being provided for informational/ educational purposes only.) The performance of this assay has not been clinically validated in patients less than 2 years old. 05/08/2022 2:27 PM EDT [facility] LAB BLOOD ORDERABLES Final Resul t [facility] [address] * Colonoscopy (04/12/2018) Pathologist [facility] Colonoscopy Normal Normal Historical Provider HEALTH MAINTENANCE Final Result * HPV mRNA E6/E7 (10/25/2016 9:30 AM EST) HPV mRNA E6/E7 Not Detected NOT DETECTED [facility] Comment: This test was performed using the APTIMA(R) HPV Assay ([employer] This assay detects E6/E7 viral messenger RNA (mRNA) from 14 high-risk HPV types (16,18,31,33,35,39,45,51, 52,56,58,59,66,68). For additional information please refer to: http://[employer]/faq/WHI196i6 (This link is being provided for informational/ educational purposes only.) Test Performed by [employer], [facility], [address] [place] [address] Naif Pereira M.D., Ph.D., Director of Laboratories , [facility] [id number] Please note: Effective 05/08/2016, HPV testing will be performed using [employer]'s APTIMA test which targets mRNA. Detecting mRNA instead of DNA, as in older methods, offers significant improvements in specificity. 10/25/2016 9:30 AM EST us Hazel Corcoran MD HISTORICAL/NON ORDERABLE LABS Final Result [facility] [address] from Last 3 Months or Most Recently Relevant to Health Maintenance Insurance [employer] Care Teams Barrel Washer Relationship Specialty Start Date End Date Jennifer Sultana NP [address] [place] [phone] PCP - General Family Medicine 07/28/24 Juanito Srinviasan Director Telehealth 05/10/23 Fracnisco J Palomino Director TelehealthSenior Genetic Counselor 05/16/23 Fawad Vargas Director TelehealthSenior Genetic Counselor 08/11/24
--- OUTSIDE RECORDS SUMMARY | 2025-06-25 16:50 | XMS_ITS | Encounter Summary ---
Demographics Address [address] [facility] [address] [place] [address] Home Phone Mobile Phone Work Phone Email Address Preferred Language en Marital Status Temple Affiliation Unknown Race White Ethnic Group Unknown Author Organization [employer] Address [address] [place] [address] [address] [place] [address] Care Team Providers Care Administrative Assistant Name Role Phone Ju Khan ANP Primary Care Provider [phone] Jennifer Sultana NP Primary Care Provider Reason for Visit * Reason Comments Med Refill Encounter Details Date Type Department Care Team ([place] [facility] st Contact Info) Description 10/28/2023 Refill [facility] [address] [place] [address] Ju Khan ANP [address] [place] [address] Multiple joint pain Social History Tobacco Use [...] Description 08/03/2025 10:45 AM EST Office Visit [facility] [address] [place] [address] Jennifer Sultana NP [address] [place] [address] 09/18/2025 1:00 PM EST Office Visit [facility] [address] [place] [address] Isaiah, Meli, OD [address] [place] [address] documented as of this encounter Visit Diagnoses Diagnosis Multiple joint pain Pain in joint, multiple sites documented in this encounter Additional Health Concerns Assessment Noted Time PHQ-9 Depression Total Score: 9 12/01/19 23 10:12 AM EDT documented as of this encounter Care Teams Administrative Assistant Relationship Specialty Start Date End Date Ju Khan ANP [address] [place] [address] PCP - General Family Medicine 03/20/22 07/27/24 Jennifer Sultana NP [address] [place] [address] PCP - General Family Medicine 07/28/24 Juanito Srinivasan Chief Fishery Division 05/10/23 Francisco J Palomino Chief Fishery DivisionComputing Consultant 05/16/23 Fawad Vargas Chief Fishery DivisionComputing Consultant 08/11/24 documented as of this encounter
== END 2025-06-25 14:43 | disposition home or self-care (01) ==
LOC: HO.HPS 13:52
PROVIDERS: PCP Nurse Practitioner Family; Visit Provider Internal Medicine Pulmonary Disease
DX: J44.9 Chronic obstructive pulmonary disease, unspecified (principal); G47.33 Obstructive sleep apnea (adult) (pediatric); Z87.891 Personal history of nicotine dependence
CPT/HCPCS: 99214

== ENCOUNTER → 2025-06-25 13:51 | Outpatient (BNVA) | payer MEDICAID, SELFPAY | PROVIDERS: PCP Nurse Practitioner Family; Visit Provider Internal Medicine Pulmonary Disease | DX: J44.9 Chronic obstructive pulmonary disease, unspecified (principal); G47.33 Obstructive sleep apnea (adult) (pediatric); Z99.89 Dependence on other enabling machines and devices; Z87.891 Personal history of nicotine dependence | CPT/HCPCS: 99212 ==

== ENCOUNTER 2025-07-01 13:53 | Outpatient (AMB) | payer MEDICAID, SELFPAY ==
--- NOTE | 2025-07-01 14:48 | A.OFFVIS_ITS ---
Intake Visit Reasons: 4m/PVR/meds Intake Note: Patient presents today for 4m/PVR/Meds Urology Medication:Solifenacin Blood Thinner:None Antibiotic Allergies:Penicillin, Amoxicillin PVR:83ml Allergies codeine Allergy (Severe, Verified 07/01/25 14:49) Anaphylaxis aspirin Allergy (Mild, Verified 07/01/25 14:49) Hives Penicillins (PENICILLINS) Allergy (Mild, Verified 07/01/25 14:49) HIVES Sulfa (Sulfonamide Antibiotics) Allergy (Mild, Verified 07/01/25 14:49) Hives sulfamethoxazole (From Bactrim) Allergy (Mild, Verified 07/01/25 14:49) inflamed hives, rash, trimethoprim (From Bactrim) Allergy (Mild, Verified 07/01/25 14:49) inflamed hives, rash, amoxicillin (AMOXICILLIN) Allergy (Unknown, Verified 07/01/25 14:49) HIVES albuterol Allergy (Verified 07/01/25 14:49) Hives citalopram (From Celexa) Allergy (Verified 07/01/25 14:49) Hives lamotrigine (From Lamictal) Allergy (Verified 07/01/25 14:49) Hives olanzapine Allergy (Verified 07/01/25 14:49) Hives morphine Adverse Reaction (Mild, Verified 07/01/25 14:49) Itching haloperidol (From Haldol) Adverse Reaction (Verified 07/01/25 14:49) Angioedema Medication List - Last Reconciled 07/01/25 by Mauricio Avilez MD albuterol sulfate 90 mcg/actuation 2 puffs PO Q4-6H PRN cholecalciferol (vitamin D3) 50 mcg PO DAILY clonazepam 2 mg PO TID PRN cyclobenzaprine 5 mg PO ONCE PRN docusate sodium (Colace) 200 mg (2 x 100 mg) PO BEDTIME 30 days folic acid 1 mg PO DAILY folic acid 2 mg PO DAILY furosemide (Lasix) 20 mg PO QAM hydroxyzine HCl 10 mg PO BEDTIME levofloxacin 500 mg PO DAILY lubiprostone 8 mcg PO BID 30 days methylcellulose (laxative) (Citrucel) 500 mg PO BID 30 days metoprolol tartrate 12.5 mg PO BID mometasone 200 mcg/actuation (Asmanex HFA) 1 puff inhalation BEDTIME polyethylene glycol 3350 (Miralax) 17 grams PO BID 60 days prednisone 40 mg (2 x 20 mg) PO DAILY rosuvastatin 10 mg PO QAM simethicone (Gas-X Extra Strength) 125 mg PO BEDTIME PRN 30 days solifenacin (Vesicare) 10 mg PO DAILY theophylline ER 400 mg PO QAM tiotropium-olodaterol 2.5-2.5 mcg/actuation (Stiolto Respimat) 2 puffs inhalatio n DAILY verapamil ER 120 mg PO QPM ziprasidone HCl (Geodon) 80 mg PO .DAILY AT BEDTIME HPI Comments Details: 07/01/25--Cherri is a 60-year-old female. History of Present Illness The patient is a 60-year-old female presenting for the follow up management of urinary urgency and incontinence. The patient has been experiencing urinary urgency and incontinence, which have been managed with medication. She reports that the medication has been effective, reducing her need for incontinence products. She has been drinking more water as advised by her daughter, which may have contributed to the improvement in her symptoms. The patient has been prescribed Solifenacin, which she is taking regularly. The patient was advised to follow up in nine months unless symptoms worsen or new issues arise. Plan 1. Urinary Urgency 2. Urinary Incontinence - Continue Solifenacin 10 mg daily. - Follow-up in nine months unless symptoms worsen. - Contact the nurse for any issues or refills. 02/02/25--History of Present Illness - The patient is a 59-year-old female presenting with lower urinary tract symptoms. - She was initially evaluated on 11/27/2024 for urgency and urinary leakage. - Despite starting Vesicare, there is uncertainty regarding adherence, with persistent symptoms. - She notes frequent urination and constant urge to void. - Medical history includes extensive nicotine use, with an ongoing habit. - The daughter assists with medication management, using a med box for or ganization. Urinary Symptoms Review - Experiences lower urinary tract symptoms characterized by urgency and urinary leakage. - Frequency of urination is perceived as constant. - Uncertainty regarding the effectiveness of Vesicare due to irregular adherence. - No noticeable improvement in urinary symptoms since the last consultation. - Self-reported frequent urination but no nocturnal enuresis or pain. Results - Renal ultrasound on 01/16/2025: Kidneys within normal limits. - Office cystoscopy findings: No lesions detected; bladder wall thickening observed. Plan - Take Vesicare as directed?confirm current usage with your daughter. - Monitor urinary symptoms and report any significant changes. 11/27/24 History of Present Illness The patient is a 59-year-old female presenting with complaints of urinary leakage associated with urgency. During previous health visits, she reports difficulty providing urine samples due to an inability to urinate on demand. Recent and past urine tests, including one on 10/22/24, revealed no blood or infection, yet urinary leakage and urgency persist. The patient has a history of nicotine use, adding complexity to her symptoms due to potential bladder irrit ation risks. She currently consumes two cans of Pepsi per day, which is noted as a possible exacerbating factor. Suggestions to decrease this consumption have been given. Plan discussed--The patient will be started on an anticholinergic medication to address her urinary incontinence and urgency. She will work on reducing her caffeine intake, Due to her history of nicotine use, a renal ultrasound and office cystoscopy will be performed to assess the urinary tract further. Unable to provide urine sample today. Urinary Symptoms Review - Urinary leakage with urgency - Caffeine intake at approximately two cans of Pepsi per day, adding potential irritant effects Results - Labs: Urinalysis on 10/22/24 negative for blood or leukocytes PFSH Medical History Delayed gastric emptying Hypercalcemia Tearfulness Rhinosinusitis Essential (primary) hypertension Anorexia nervosa, restricting type Blindness of left eye Thoracic back pain Uterine leiomyoma Vitamin D deficiency Visual impairment Stress incontinence of urine Chronic kidney disease, stage 3a Former smoker Rib lesion Recurrent acute sinusitis Raised TSH level Pure hypercholesterolemia Mixed hyperlipidemia Postural dizziness Opioid dependence Muscle pain Multiple joint pain Moderate persistent asthma without complication Lumbar radiculopathy Chronic rhinitis Hepatitis C Blood in urine Asthenia COVID-19 vaccine series completed Bipolar disorder Chronic pain syndrome Disc degeneration, lumbar Spondylosis 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 Chronic constipation Deviated septum Emphysema lung Adenomatous colon polyp Acid reflux Surgical History History of tympanoplasty S/P surgery on nasal septum History of bunionectomy History of tubal ligation History of esophagogastroduodenoscopy (EGD) Hx of colonoscopy Family History Father Brain cancer Mother Ovarian cancer Breast cancer Cervical cancer Social History Household Members: Children Alcohol intake: never Patient Tobacco Use Status: Former Tobacco user Tobacco use type: Cigarette Current occupational status: unemployed Review of Systems Const All systems reviewed & are unremarkable except as noted in HPI and below Reports no additional complaints Eyes Reports no additional complaints ENT Reports no additional complaints Card Reports no additional complaints Resp Reports no additional complaints GI Reports no additional complaints Reports as per HPI Musc Reports no additional complaints Skin/Breast Reports system reviewed and no additional complaints, except as documented Neuro Reports no additional complaints Psych Reports no additional complaints Endo Reports no additional complaints Win/Lymph Reports no additional complaints Aller/Immun Reports no additional complaints Assessment & Plan Assessment & Plan (1) Urinary urgency: Code(s): R39.15 - Urgency of urination Category: Medical (2) Urinary incontinence: Code(s): R32 - Unspecified urinary incontinence Category: Medical (3) Personal history of nicotine dependence: Code(s): Z87.891 - Personal history of nicotine dependence Category: Medical Plan Plan 1. Urinary Urgency 2. Urinary Incontinence - Continue Solifenacin 10 mg daily. - Follow-up in nine months unless symptoms worsen. - Contact the nurse for any issues or refills. Patient Instructions: The patient had an opportunity to ask questions regarding treatment plan. The patient expressed understanding and agreement with the above treatment plan. The patient is aware they should contact our office by phone for worsening of their current condition or the appearance of new symptoms. Compliance is encouraged with any medications and followup testing that is ordered. It is a privilege to be allowed the opportunity to participate in the urologic care of your patient. If you have any questions or concerns regarding treatment for the above conditions please do not hesitate to contact me. The office telephone contact is [phone]. This note is constructed in part using voice recognition software. While every effort has been made to ensure accuracy rehab nursing tech errors may have been included. Yours sincerely, Mauricio Avilez MD Scribe Plan - Not visible on output: Patient was informed and verbally consented to the use of an ambient scribe for clinic note documentation during this visit. Coding Level of Care Code Est Pt Level 3 (30359) Diagnoses Urinary urgency R39.15 Urinary incontinence R32 Personal history of nicotine dependence Z87.896
--- OUTSIDE RECORDS SUMMARY | 2025-07-01 17:05 | XMS_ITS | Encounter Summary ---
Author Organization [employer] Address [address] [place] [address] Care Team Providers Care Animation Producer Name Role Phone Ju Khan Primary Care Provider [phone] Jennifer Sultana NP Primary Care Provider [phone] Reason for Visit * Reason Comments Med Refill Encounter Details Date Type Department Care Team (Late Contact Info) Description 05/23/2023 Refill [facility] MEDICINE [address] [place] [address] Ju Khan ANP [address] [place], [place] [phone] Multiple joint pain Social History Tobacco Use [...] Description 08/03/2025 10:45 AM EST Office Visit [facility] MEDICINE [address] [place], [place] [phone] Jennifer Sultana NP [address] [place] [address] 09/18/2025 1:00 PM EST Office Visit [facility] OPTOMETRY [address] [place], [place] [phone] Meli Colon, OD [address] [place] [address] documented as of this encounter Visit Diagnoses Diagnosis Multiple joint pain Pain in joint, multiple sites documented in this encounter Additional Health Concerns Assessment Noted Time PHQ-9 Depression Total Score: 9 12/01/19 23 10:12 AM EDT documented as of this encounter Care Teams Animation Producer Relationship Specialty Start Date End Date Ju Khan ANP [address] [place] [address] PCP - General Family Medicine 03/20/22 07/27/24 Jennifer Sultana NP [address] [place] [address] PCP - General Family Medicine 07/28/24 Juanito Srinivasan Manager Knowledge 05/10/23 Francisco J Palomino Manager KnowledgeChangeover Operator 05/16/23 Fawad Vargas Manager KnowledgeChangeover Operator 08/11/24 documented as of this encounter
--- OUTSIDE RECORDS SUMMARY | 2025-07-01 17:05 | XMS_ITS | Encounter Summary ---
Author Organization [employer] Address [address] [place] [address] [address] [place] [address] Care Team Providers Care Manufacturing Production Manager Name Role Phone Jennifer Sultana NP Primary Care Provider [phone] Reason for Visit * Reason Comments Med Refill Encounter Details Date Type Department Care Team ([facility] Contact Info) Description 04/02/2025 Refill [facility] MEDICINE [address] [place], [place] [phone] Bree Love MD [address] [place], [place] [phone] Spondylosis 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 Social [...] EST Office Visit [facility] MEDICINE [address] [place] [address] Jennifer Sultana NP [address] [place] [address] 09/18/2025 1:00 PM EST Office Visit [facility] OPTOMETRY [address] [place] [address] Isaiah, Meli, OD [address] [place] [address] documented as of this encounter Visit Diagnoses Diagnosis Spondylosis 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 documented in this encounter Additional Health Concerns Assessment Noted Time PHQ-9 Depression Total Score: 27 024 2:31 PM EST documented as of this encounter Care Teams Manufacturing Production Manager Relationship Specialty Start Date End Date Jennifer Sultana NP [address] [place] [address] PCP - General Family Medicine 07/28/24 Juanito Srinivasan Mountain Guide 05/10/23 Francisco J Palomino Mountain GuideBicycle Subassembler 05/16/23 Fawad Vargas Mountain GuideBicycle Subassembler 08/11/24 documented as of this encounter
--- OUTSIDE RECORDS SUMMARY | 2025-07-01 17:05 | XMS_ITS | Encounter Summary ---
Author Organization [employer] Address [address] [place] [address] 7 [place] [address] Care Team Providers Care Fulfillment Representative Name Role Phone Ju Khan ANP Primary Care Provider [phone] Jennifer Sultana NP Primary Care Provider [phone] Reason for Visit * Reason Onset Date Comments PT1 06/19/2023 Encounter Details Date Type Department Care Team ([facility] Contact Info) Description 06/19/2023 Telephone [facility] MEDICINE [address] [place] [address] Ju Khan ANP [address] [place], [place] [phone] PT1 Social History Tobacco Use Types Packs/Day [...] / denial letter via mail. PT-1 Request [id number] Authorized - [address] [address] Wrote called and spoke with pt regarding PT1. [facility] GI PT1 is good through October 2023 & [facility] Pulmonology is good through 01/2024. Pt just needed [facility] * Telephone Encounter - Lupis Cano - 06/19/2023 2:15 PM EDT Tc from pt requesting PT1 renewal Date: n/a Time: n/a Visits: n/a Address: [address] [place] [address] willi [place] Facility: [facility] pulmonology Wheel Chair: no, cane Computer Analyst Supervisor Needed: no Date: 07/04 Time: 12 PM Visits: n/a Address: [address] [place] [address] Willi Wilson [place] Facility: [facility] Gastroenterology Wheel Chair: no, cane Computer Analyst Supervisor Needed: no documented in this encounter Plan of Treatment Upcoming Encounters Date Type Department Care Team (Late st Contact Info) Description 08/03/2025 10:45 AM EST Office Visit [facility] MEDICINE [address] [place] [address] Jennifer Sultana NP [address] [place] [address] 09/18/2025 1:00 PM EST Office Visit [facility] OPTOMETRY [address] [place], [place] [phone] Isaiah, Meli, OD [address] [place] [address] documented as of this encounter Visit Diagnoses Not on filedocumented in this encounter Additional Health Concerns Assessment Noted Time PHQ-9 Depression Total Score: 9 12/01/19 23 10:12 AM EDT documented as of this encounter Care Teams Fulfillment Representative Relationship Specialty Start Date End Date Ju Khan ANP [address] [place], [place] [phone] PCP - General Family Medicine 03/20/22 07/27/24 Jennifer Sultana NP [address] [place], [place] [phone] PCP - General Family Medicine 07/28/24 Juanito Srinivasan Steak Sauce Maker 05/10/23 Francisco J Palomino Steak Sauce MakerCommercial Center Manager 05/16/23 Fawad Vargas Steak Sauce MakerCommercial Center Manager 08/11/24 documented as of this encounter
--- OUTSIDE RECORDS SUMMARY | 2025-07-01 17:05 | XMS_ITS | Clinical Summary ---
Author Organization [address] [facility] Address [address] [place] [address] Phone Care Team Providers Care Dude Ranch Manager Name Role Phone Jennifer Sultana PRATIK Primary Care Provider [phone] Allergies Active Allergy Reactions Criticality Noted Date [...] PM EST Office Visit Orthopedic Surgery - [place] [address] [facility] [address] [place] [phone] Artie Goodrich, LEENA 175 [facility] 250 [place] [address] Health Maintenance Due Date Last Done Comments [...] topic Insurance MEDICAID - [place] Care Teams Dude Ranch Manager Relationship Specialty Start Date End Date Jennifer Sultana FNP [address] [place] [phone] PCP - General Nurse Practitioner 08/18/24
--- OUTSIDE RECORDS SUMMARY | 2025-07-01 17:05 | XMS_ITS | Encounter Summary ---
Author Organization [employer] Address [address] [place] [address] 7 [place] [address] Care Team Providers Care Student Education Specialist Name Role Phone Ju Khan ANP Primary Care Provider [phone] Jennifer Sultana MORTGAGE UNDERWRITER Primary Care Provider [phone] Reason for Visit * Reason Onset Date Comments Referral 06/19/2023 Encounter Details Date Type Department [facility] Description 06/19/2023 Telephone [facility] MEDICINE [address] [place] [address] Ju Khan ANP 230 [place], [place] [phone] Referral Social History Tobacco Use Types Packs/Day [...] from pt requesting a new location for linecasting machine keyboard operator referral. Any questions, contact pt at [phone] documented in this encounter Plan of Treatment Upcoming Encounters Date Type Department Care Team (Late st Contact Info) Description 08/03/2025 10:45 AM EST Office Visit [facility] MED[facility]INE [address] [place] [address] Jennifer Sultana NP [address] [place] [address] 09/18/2025 1:00 PM EST Office Visit [facility] OPTOMETRY [address] [place] [address] Isaiah, Meli, OD [address] [place] [address] documented as of this encounter Visit Diagnoses Not on filedocumented in this encounter Additional Health Concerns Assessment Noted Time PHQ-9 Depression Total Score: 9 12/01/19 23 10:12 AM EDT documented as of this encounter Care Teams Student Education Specialist Relationship Specialty Start Date End Date Ju Khan ANP [address] [place] [address] PCP - General Family Medicine 03/20/22 07/27/24 Jennifer Sultana NP [address] [place] [address] PCP - General Family Medicine 07/28/24 Juanito Srinivasan Scrap Baler 05/10/23 Francisco J Palomino Scrap BalerStock Car Driver 05/16/23 Fawad Vargas Scrap BalerStock Car Driver 08/11/24 documented as of this encounter
--- OUTSIDE RECORDS SUMMARY | 2025-07-01 17:05 | XMS_ITS | Encounter Summary ---
Author Organization [employer] Address [address] [place] [address] [address] Care Team Providers Care Thermal Surfacing Machine Operator Name Role Phone Jennifer Sultana NP Primary Care Provider [phone] Reason for Visit * Reason Onset Date Comments Referral 03/25/2025 Encounter Details Date Type Department Care Team ([facility] Contact Info) Description 03/25/2025 Telephone [facility] MEDICINE [address] [place] [address] Jennifer Sultana NP [address] [place] [address] Referral Social History Tobacco Use Types Packs/Day [...] pt who reports that female specialist at [facility] will not see her until she has completed an MRI of the spine. Pt states she is unsure of specialist's name but was advised to send MRI results to [phone]. Pt agrees to appt with Blue team provider next week as she needs time to arrange transportation. * Telephone Encounter - Dionisio Barragan - 03/25/2025 11:59 AM EDT Tc from pt requesting a referral for the MRI. For the spine. Any questions contact pt at [phone] documented in this encounter Plan of Treatment Upcoming Encounters Date Type Department Care Team (Late st Contact Info) Description 08/03/2025 10:45 AM EST Office Visit [facility] MEDICINE [address] [place] [address] Jennifer Sultana NP [address] [place], [place] [phone] 09/18/2025 1:00 PM EST Office Visit [facility] OPTOMETRY [address] [place] [address] Meli Colon, OD [address] [place] [address] documented as of this encounter Visit Diagnoses Not on filedocumented in this encounter Additional Health Concerns Assessment Noted Time PHQ-9 Depression Total Score: 27 024 2:31 PM EST documented as of this encounter Care Teams Thermal Surfacing Machine Operator Relationship Specialty Start Date End Date Jennifer Sultana NP [address] [place] [address] PCP - General Family Medicine 07/28/24 Juanito Srinivasan Industrial Tractor Driver 05/10/23 Francisco J Palomino Industrial Tractor DriverPractice Consultant 05/16/23 Fawad Vargas Industrial Tractor DriverPractice Consultant 08/11/24 documented as of this encounter
--- OUTSIDE RECORDS SUMMARY | 2025-07-01 17:05 | XMS_ITS | Encounter Summary ---
Author Organization [employer] Address [address] [place] [address] 7 [place] [address] Care Team Providers Care Animator Name Role Phone Ju Khan ANP Primary Care Provider [phone] Jennifer Sultana FACILITIES MECHANICAL DESIGN ENGINEER Primary Care Provider [phone] Reason for Visit * Reason Onset Date Comments PT-1 06/11/2024 Encounter Details Date Type Department Care Team ([facility] st Contact Info) Description 06/11/2024 Telephone [facility] MEDICINE [address] [place] [address] Ju Khan ANP [address] [place], [place] [phone] PT-1 Social History Tobacco Use Types Packs/Day [...] Y/N: Yes Provider name or facility name: [facility] Allergy (Dr. Philippe Evans) Facility Address: [address] [place] [address] Escort needed: Y/N: Yes Do you have a wheelchair: Y/N: No If yes- Manual or electric: (Uses walker and cane) Visits: 3 times a month - Patient calling requesting PT1 Home Address verified: Y/N: Yes Provider name or facility name: [facility] Facility Address: [address] [place] [address] Escort needed: Y/N: Yes Do you have a wheelchair: Y/N: No If yes- Manual or electric: Walker and Cane Visits: 4 a month - Patient calling requesting PT1 Home Address verified: Y/N: Yes Provider name or facility name: Ramez John MD Facility Address: [address] [place] [address] Escort needed: Y/N: Yes Do you have a wheelchair: Y/N: No If yes- Manual or electric: Walker and cane Visits: 3 monthly documented in this encounter Plan of Treatment Upcoming Encounters Date Type Department Care Team (Late st Contact Info) Description 08/03/2025 10:45 AM EST Office Visit [facility] MEDICINE [address] [place] [address] Jennifer Sultana, [place] [address] [place] [address] 09/18/2025 1:00 PM EST Office Visit [facility] OPTOMETRY [address] [place] [address] Meli Colon, OD [address] [place] [address] documented as of this encounter Visit Diagnoses Not on filedocumented in this encounter Additional Health Concerns Assessment Noted Time PHQ-9 Depression Total Score: 3 04/04/20 1:48 PM EDT documented as of this encounter Care Teams Animator Relationship Specialty Start Date End Date Ju Khan ANP [address] [place] [address] PCP - General Family Medicine 03/20/22 07/27/24 Jennifer Sultana NP [address] [place] [address] PCP - General Family Medicine 07/28/24 Juanito Srinivasan Plodder Operator 05/10/23 Francisco J Palomino Plodder OperatorField Administrator 05/16/23 Fawad Vargas Plodder OperatorField Administrator 08/11/24 documented as of this encounter
--- OUTSIDE RECORDS SUMMARY | 2025-07-01 17:05 | XMS_ITS | Encounter Summary ---
Author Organization [employer] Address [address] [place] [address] 7 [place] [address] Care Team Providers Care Head Char Filter Tank Tender Name Role Phone Ju Khan ANP Primary Care Provider [phone] Jennifer Sultana NP Primary Care Provider [phone] Reason for Visit * Reason Onset Date Comments PT1 06/15/2023 Encounter Details Date Type Department Care Team ([facility] Contact Info) Description 06/15/2023 Telephone [facility] MEDICINE [address] [place] [address] Ju Khan ANP [address] [place], [place] [phone] PT1 Social History Tobacco Use Types Packs/Day [...] 06/27/2023 Time: 2:45 Visits: 2 monthly Address: [address] [place] [address] Facility: [facility] Wheel Chair: no/cane Certified Tower Climber Needed: no & Date: 07/17/2023 Time: 2:00 Visits: 3 monthly Address: [address] [place] [address] Facility: [facility] Wheel Chair: no/cane Certified Tower Climber Needed: no documented in this encounter Plan of Treatment Upcoming Encounters Date Type Department Care Team ([facility] st Contact Info) Description 08/03/2025 10:45 AM EST Office Visit [facility] MEDICINE [address] [place] [address] Jennifer Sultana NP 230 [place] [address] 09/18/2025 1:00 PM EST Office Visit [facility] OPTOMETRY [address] [place] [address] Isaiah, Meli, OD 230 [place] [address] documented as of this encounter Visit Diagnoses Not on filedocumented in this encounter Additional Health Concerns Assessment Noted Time PHQ-9 Depression Total Score: 9 12/01/19 23 10:12 AM EDT documented as of this encounter Care Teams Head Char Filter Tank Tender Relationship Specialty Start Date End Date Ju Khan ANP [address] [place] [address] PCP - General Family Medicine 03/20/22 07/27/24 Jennifer Sultana NP [address] [place] [address] PCP - General Family Medicine 07/28/24 Juanito Srinivasan Career Guidance Technician 05/10/23 Francisco J Palomino Career Guidance TechnicianAviation Boatswain'S Mate 05/16/23 Fawad Vargas Career Guidance TechnicianAviation Boatswain'S Mate 08/11/24 documented as of this encounter
--- OUTSIDE RECORDS SUMMARY | 2025-07-01 17:05 | XMS_ITS | Encounter Summary ---
Demographics Address [address] [facility] [address] [place] [address] Home Phone Mobile Phone Work Phone Email Address Preferred Language en Marital Status Cheondoism Affiliation Unknown Race White Ethnic Group Unknown Author Organization [employer] Address [address] [place] [address] 7t [place] [address] Care Team Providers Care Poultry Dresser Name Role Phone Ju Khan ANP Primary Care Provider [phone] Jennifer Sultana LOGISTICS PLANNING MANAGER Primary Care Provider Reason for Visit * Reason Onset Date Comments PT-1 02/25/2024 Encounter Details Date Type Department Care Team ([facility] st Contact Info) Description 02/25/2024 Telephone [facility] MEDICINE 230 [place] [address] Ju Khan ANP 230 [place], [place] [phone] PT-1 Social History Tobacco Use Types Packs/Day [...] Y/N: Yes Provider name or facility name: [facility] Facility Address: [address] [place] [address] Escort needed: Y/N: No Do you have a wheelchair: Y/N: No If yes- Manual or electric: n/a Visits: 1x per week documented in this encounter Plan of Treatment Upcoming Encounters Date Type Department Care Team ([facility] Contact Info) Description 08/03/2025 10:45 AM EST Office Visit [facility] MEDICINE 230 [place] [address] Jennifer Sultana NP 230 [place] [address] 09/18/2025 1:00 PM EST Office Visit [facility] OPTOMETRY [address] [place] [address] Meli Colon, OD 230 [place] [address] documented as of this encounter Visit Diagnoses Not on filedocumented in this encounter Additional Health Concerns Assessment Noted Time PHQ-9 Depression Total Score: 9 12/01/19 23 10:12 AM EDT documented as of this encounter Care Teams Poultry Dresser Relationship Specialty Start Date End Date Ju Khan ANP 230 [place] [address] PCP - General Family Medicine 03/20/22 07/27/24 Jennifer Sultana NP 230 [place] [address] PCP - General Family Medicine 07/28/24 Juanito Srinivasan Wildlife Officer 05/10/23 Francisco J Palomino Wildlife OfficerManager Document 05/16/23 Fawad Vargas Wildlife OfficerManager Document 08/11/24 documented as of this encounter
--- OUTSIDE RECORDS SUMMARY | 2025-07-01 17:05 | XMS_ITS | Encounter Summary ---
Author Organization [employer] Address [address] [place] [address] Care Team Providers Care Distribution Technician Name Role Phone Ju Khan Primary Care Provider [phone] Jennifer Sultana NP Primary Care Provider [phone] Reason for Referral * Consultation (STAT) - Closed Specialty Diagnoses / Procedures Referred By [facility] Referred To Contact Orthopaedic Surgery Diagnoses Other closed fracture of proximal end of right tibia, initial encounter Fry cyst, right Ju Khan ANP 230 [place] [address] Phone: tel: fax: [facility] [address] [place] [address] Phone: tel: Referral ID Status Reason Start Date Expiration Date V isits Requested Visits Authorized [id number] Closed Specialty Services Required 05/05/2024 05/05/2025 3 3 Reason for Visit * Reason Comments Med Refill Encounter Details Date Type Department Care Team (Late st Contact Info) Description 07/03/2024 Refill [facility] MEDICINE 230 [place] [address] Ju Khan ANP [address] [place] [address] Other closed fracture of proximal end of [...] Description 08/03/2025 10:45 AM EST Office Visit [facility] MEDICINE [address] [place] [address] Jennifer Sultana NP 230 [place] [address] 09/18/2025 1:00 PM EST Office Visit [facility] OPTOMETRY [address] [place] [address] Meli Colon, OD 230 [place] [address] Scheduled Referrals Name Type Priority Associated Diagnoses [...] documented as of this encounter Care Teams Distribution Technician Relationship Specialty Start Date End Date Ju Khan ANP 230 [place] [address] PCP - General Family Medicine 03/20/22 07/27/24 Jennifer Sultana NP 230 [place] [address] PCP - General Family Medicine 07/28/24 Juanito Srinivasan Dry Drug Worker 05/10/23 Francisco J Palomino Dry Drug WorkerTravel Registered Nurse Icu 05/16/23 Fawad Vargas Dry Drug WorkerTravel Registered Nurse Icu 08/11/24 documented as of this encounter
--- OUTSIDE RECORDS SUMMARY | 2025-07-01 17:05 | XMS_ITS | Encounter Summary ---
Author Organization [employer] Address [address] [facility] 7 [place] [address] Care Team Providers Care Contract Attorney Name Role Phone Jennifer Sultana NP Primary Care Provider [phone] Reason for Visit * Reason Comments Med Refill Encounter Details Date Type Department [facility] Description 06/28/2025 Refill [facility] MEDICINE 230 [place] [address] Jennifer Sultana NP 230 [place] [address] Social History Tobacco Use Types Packs/Day Years [...] Description 08/03/2025 10:45 AM EST Office Visit [facility] MEDICINE 230 [place] [address] Jennifer Sultana NP 230 [place] [address] 09/18/2025 1:00 PM EST Office Visit [facility] OPTOMETRY [address] [place] [address] Isaiah, Meli, OD 230 [place] [address] documented as of this encounter Visit Diagnoses Not on filedocumented in this encounter Additional Health Concerns Assessment Noted Time PHQ-9 Depression Total Score: 27 024 2:31 PM EST documented as of this encounter Care Teams Contract Attorney Relationship Specialty Start Date End Date Jennifer Sultana NP 230 [place] [address] PCP - General Family Medicine 07/28/24 Juanito Srinivasan Grinder Mill Operator 05/10/23 Francisco J Palomino Grinder Mill OperatorMetal Furrer 05/16/23 Fawad Vargas Grinder Mill OperatorMetal Furrer 08/11/24 documented as of this encounter
--- OUTSIDE RECORDS SUMMARY | 2025-07-01 17:05 | XMS_ITS | Encounter Summary ---
Author Organization [employer] Address [address] [place] [address] 7t [place] [address] Care Team Providers Care Termite Control Technician Name Role Phone Jennifer Sultana NP Primary Care Provider [phone] Reason for Visit * Reason Comments Med Refill Encounter Details Date Type Department Care Team ([facility] Contact Info) Description 02/19/2025 Refill [facility] MEDICINE 230 [place] [address] Jennifer Sultana NP 230 [place] [address] Spondylosis 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 Social [...] Description 08/03/2025 10:45 AM EST Office Visit [facility] MEDICINE [address] [place] [address] Jennifer Sultana NP 230 [place] [address] 09/18/2025 1:00 PM EST Office Visit [facility] OPTOMETRY [address] [place] [address] Isaiah, Meli, OD 230 [place] [address] documented as of this encounter Visit Diagnoses Diagnosis Spondylosis 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 documented in this encounter Additional Health Concerns Assessment Noted Time PHQ-9 Depression Total Score: 27 024 2:31 PM EST documented as of this encounter Care Teams Termite Control Technician Relationship Specialty Start Date End Date Jennifer Sultana NP 230 [place] [address] PCP - General Family Medicine 07/28/24 Juanito Srinivasan Mine Deputy 05/10/23 Francisco J Palomino Mine DeputyMedical Authorization Specialist 05/16/23 Fawad Vargas Mine DeputyMedical Authorization Specialist 08/11/24 documented as of this encounter
--- OUTSIDE RECORDS SUMMARY | 2025-07-01 17:05 | XMS_ITS | Encounter Summary ---
Author Organization [employer] Address [address] [place] [address] [address] [address] Care Team Providers Care Respiratory Therapy Instructor Name Role Phone Ju Khan ANP Primary Care Provider [phone] Jennifer Sultana COMPLAINT CLERK Primary Care Provider [phone] Reason for Visit * Reason Onset Date Comments PT1 03/09/2023 Encounter Details Date Type Department Care Team ([facility] Contact Info) Description 03/09/2023 Telephone [facility] MEDICINE 230 [place] [address] Ju Khan ANP 230 [place] [address] PT1 Social History Tobacco Use Types Packs/Day [...] PM EDT PT1 initiated for PSS[facility] in [facility] will send pt a letter with instructions * Telephone Encounter - Lupis Cano - 03/09/2023 1:13 PM EDT Tc from pt requesting a PT1 PT1 Date: TBD Time: TBD Address: [address] [place] [address] Specialty: radiculopathy Facility: [facility] Touch Up: no Wheelchair: no, cane documented in this encounter Plan of Treatment Upcoming Encounters Date Type Department Care Team (Late st Contact Info) Description 08/03/2025 10:45 AM EST Office Visit [facility] MEDICINE [address] [place] [address] Jennifer Sultana NP 230 [place] [address] 09/18/2025 1:00 PM EST Office Visit [facility] OPTOMETRY [address] [place] [address] Isaiah, Meli, OD [address] [place] [address] documented as of this encounter Visit Diagnoses Not on filedocumented in this encounter Additional Health Concerns Assessment Noted Time PHQ-9 Depression Total Score: 9 12/01/19 23 10:12 AM EDT documented as of this encounter Care Teams Respiratory Therapy Instructor Relationship Specialty Start Date End Date Ju Khan ANP 230 [place] [address] PCP - General Family Medicine 03/20/22 07/27/24 Jennifer Sultana NP [address] [place] [address] PCP - General Family Medicine 07/28/24 Juanito Srinivasan Professor Of Floriculture 05/10/23 Francisco J Palomino Professor Of FloriculturePortable Machine Cutter 05/16/23 Fawad Vargas Professor Of FloriculturePortable Machine Cutter 08/11/24 documented as of this encounter
--- OUTSIDE RECORDS SUMMARY | 2025-07-01 17:05 | XMS_ITS | Encounter Summary ---
Author Organization [employer] Address [address] [place] [address] 7 [place] [address] Care Team Providers Care Lacing Cutter Name Role Phone Ju Khan ANP Primary Care Provider [phone] Jennifer Sultana NP Primary Care Provider [phone] Reason for Visit * Reason Comments Med Refill Encounter Details Date Type Department Care Team ([facility] st Contact Info) Description 07/15/2024 Refill [facility] MEDICINE 230 [place] [address] Ju Khan ANP 230 [place] [address] Multiple joint pain Social History Tobacco Use [...] Description 08/03/2025 10:45 AM EST Office Visit [facility] MEDICINE 230 [place] [address] Jennifer Sultana NP [address] [place] [address] 09/18/2025 1:00 PM EST Office Visit [facility] OPTOMETRY [address] [place] [address] Meli Colon, OD 230 [place] [address] documented as of this encounter Visit Diagnoses Diagnosis Multiple joint pain Pain in joint, multiple sites documented in this encounter Additional Health Concerns Assessment Noted Time PHQ-9 Depression Total Score: 3 04/04/20 24 1:48 PM EDT documented as of this encounter Care Teams Lacing Cutter Relationship Specialty Start Date End Date Ju Khan ANP 230 [place] [address] PCP - General Family Medicine 03/20/22 07/27/24 Jennifer Sultana NP [address] [place] [address] PCP - General Family Medicine 07/28/24 Juanito Srinivasan Gasket Winder 05/10/23 Francisco J Palomino Gasket WinderCook Cold Meat 05/16/23 Fawad Vargas Gasket WinderCook Cold Meat 08/11/24 documented as of this encounter
--- OUTSIDE RECORDS SUMMARY | 2025-07-01 17:05 | XMS_ITS | Encounter Summary ---
Author Organization [employer] Address [address] [place] [address] [address] [address] Care Team Providers Care Traffic Control Officer Name Role Phone Jennifer Sultana NP Primary Care Provider [phone] Reason for Visit * Reason Onset Date Comments Reschedule 08/22/2024 Encounter Details Date Type Department Care Team ([facility] Contact Info) Description 08/22/2024 Telephone [facility] MEDICINE [address] [place] [address] Jennifer Sultana NP [address] [place] [address] Reschedule Social History Tobacco Use Types Packs/Day [...] Description 08/03/2025 10:45 AM EST Office Visit [facility] MEDICINE [address] [place] [address] Jennifer Sultana NP [address] [place] [address] 09/18/2025 1:00 PM EST Office Visit [facility] OPTOMETRY [address] [place], [place] [address] Meli Colon OD [address] [place] [address] documented as of this encounter Visit Diagnoses Not on filedocumented in this encounter Additional Health Concerns Assessment Noted Time PHQ-9 Depression Total Score: 27 024 2:31 PM EST documented as of this encounter Care Teams Traffic Control Officer Relationship Specialty Start Date End Date Jennifer Sultana NP [address] [place] [address] PCP - General Family Medicine 07/28/24 Juanito Srinivasan Shingle Grader 05/10/23 Francisco J Palomino Shingle GraderGeneral Medical Practitioner 05/16/23 Fawad Vargas Shingle GraderGeneral Medical Practitioner 08/11/24 documented as of this encounter
--- OUTSIDE RECORDS SUMMARY | 2025-07-01 17:05 | XMS_ITS | Encounter Summary ---
Author Organization [email or web address] Address [address] [place] [address] [address] [address] Care Team Providers Care German Teacher Name Role Phone Jennifer Sultana NP Primary Care Provider [phone] Reason for Visit * Reason Onset Date Comments PT1 03/25/2025 Encounter Details Date Type Department Care Team ([facility] Contact Info) Description 03/25/2025 Telephone [facility] MEDICINE 230 [place] [address] Jennifer Sultana NP 230 [place] [address] PT1 Social History Tobacco Use Types Packs/Day [...] Y/N: Yes Provider name or facility name: [address] [place] [address] Escort needed: Y/N: Yes Do you have a wheelchair: Y/N: No Visits: (2x) documented in this encounter Plan of Treatment Upcoming Encounters Date Type Department Care Team (Late st Contact Info) Description 08/03/2025 10:45 AM EST Office Visit [facility] MEDICINE 230 [place] [address] Jennifer Sultana NP 230 [place] [address] 09/18/2025 1:00 PM EST Office Visit [facility] OPTOMETRY [address] [place] [address] Meli Colon, OD 230 [place] [address] documented as of this encounter Visit Diagnoses Not on filedocumented in this encounter Additional Health Concerns Assessment Noted Time PHQ-9 Depression Total Score: 27 024 2:31 PM EST documented as of this encounter Care Teams German Teacher Relationship Specialty Start Date End Date Jennifer Sultana NP 230 [place] [address] PCP - General Family Medicine 07/28/24 Juanito Srinivasan Calculating Machine Operator 05/10/23 Francisco J Palomino Calculating Machine OperatorGraphic Pre Press Trades Worker 05/16/23 Fawad Vargas Calculating Machine OperatorGraphic Pre Press Trades Worker 08/11/24 documented as of this encounter
--- OUTSIDE RECORDS SUMMARY | 2025-07-01 17:05 | XMS_ITS | Encounter Summary ---
Author Organization [employer] Address [address] [place] [address] 7 [place] [address] Care Team Providers Care Coil Winding Supervisor Name Role Phone Ju Khan ANP Primary Care Provider [phone] Jennifer Sultana NP Primary Care Provider [phone] Reason for Visit * Reason Onset Date Comments PT1 06/18/2023 Encounter Details Date Type Department Care Team ([facility] Contact Info) Description 06/18/2023 Telephone [facility] MEDICINE [address] [place] [address] Ju Khan ANP 230 [place], [place] [phone] PT1 Social History Tobacco Use Types Packs/Day [...] 2:19 PM EDT PT1 Name of facility: [facility] Specialty: Follow up with PCP Location: [address] [place] [address] Date: 07/02/2023 Time: 3:00 pm fax: [phone] wheelchair: NO Personal Attendant: NO Visits: Pt states for all future appts documented in this encounter Plan of Treatment Upcoming Encounters Date Type Department Care Team (Late st Contact Info) Description 08/03/2025 10:45 AM EST Office Visit [facility] MEDICINE [address] [place] [address] Jennifer Sultana NP [address] [place] [address] 09/18/2025 1:00 PM EST Office Visit [facility] OPTOMETRY [address] [place] [address] Meli Colon OD [address] [place] [address] documented as of this encounter Visit Diagnoses Not on filedocumented in this encounter Additional Health Concerns Assessment Noted Time PHQ-9 Depression Total Score: 9 12/01/19 23 10:12 AM EDT documented as of this encounter Care Teams Coil Winding Supervisor Relationship Specialty Start Date End Date Ju Khan ANP 230 [place] [address] PCP - General Family Medicine 03/20/22 07/27/24 Jennifer Sultana NP [address] [place], [place] [address] PCP - General Family Medicine 07/28/24 Juanito Srinivasan Car Runner 05/10/23 Francisco J Palomino Car RunnerExterminator Helper Termite 05/16/23 Fawad Vargas Car RunnerExterminator Helper Termite 08/11/24 documented as of this encounter
--- OUTSIDE RECORDS SUMMARY | 2025-07-01 17:05 | XMS_ITS | Encounter Summary ---
Author Organization [employer] Address [address] [place] [address] 7 [place] [address] Care Team Providers Care Microbiology Director Name Role Phone Ju Khan ANP Primary Care Provider [phone] Jennifer Sultana NP Primary Care Provider [phone] Reason for Visit * Reason Onset Date Comments PT1 02/06/2024 Encounter Details Date Type Department Care Team ([facility] Contact Info) Description 02/06/2024 Telephone [facility] MEDICINE 230 [place] [address] Ju Khan ANP [address] [place] [address] PT1 Social History Tobacco Use Types Packs/Day [...] Y/N: Yes Provider [facility] or facility [facility] Address: [address] [place] [address] Escort needed: Y/N: Yes Do you have [...] Visit [facility] MEDICINE 230 [place] [address] Jennifer Sultana NP 230 [place] [address] 09/18/2025 1:00 PM EST Office Visit [facility] OPTOMETRY [address] [place] [address] Meli Colon, AVELINO 230 [place] [address] documented as of this encounter Visit Diagnoses Not on filedocumented in this encounter Additional Health Concerns Assessment Noted Time PHQ-9 Depression Total Score: 9 12/01/19 23 10:12 AM EDT documented as of this encounter Care Teams Microbiology Director Relationship Specialty Start Date End Date Ju Khan ANP 230 [place] [address] PCP - General Family Medicine 03/20/22 07/27/24 Jennifer Sultana NP 230 [place], [place] [phone] PCP - General Family Medicine 07/28/24 Juanito Srinivasan Philatelic Consultant 05/10/23 Francisco J Palomino Philatelic ConsultantMechanic General Operational Test 05/16/23 Fawad Vargas Philatelic ConsultantMechanic General Operational Test 08/11/24 documented as of this encounter
--- OUTSIDE RECORDS SUMMARY | 2025-07-01 17:06 | XMS_ITS | Encounter Summary ---
Author Organization [employer] Address [address] [place] [address] 7t [place] [address] Care Team Providers Care Ancillary Services Manager Therapy Name Role Phone Jennifer Sultana NP Primary Care Provider [phone] Reason for Visit * Reason Comments Med Refill Encounter Details Date Type Department Care Team ([facility] Contact Info) Description 08/10/2024 Refill [facility] MEDICINE 230 [place], [place] [phone] Ju Khan, ANP 230 [place] [address] Spondylosis 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 Social [...] Description 08/03/2025 10:45 AM EST Office Visit [facility] MEDICINE 230 [place] [address] Jennifer Sultana NP [address] [place] [address] 09/18/2025 1:00 PM EST Office Visit [facility] OPTOMETRY [address] [place] [address] Isaiah, Meli, OD [address] [place] [address] documented as of this encounter Visit Diagnoses Diagnosis Spondylosis 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 documented in this encounter Additional Health Concerns Assessment Noted Time PHQ-9 Depression Total Score: 27 024 2:31 PM EST documented as of this encounter Care Teams Ancillary Services Manager Therapy Relationship Specialty Start Date End Date Jennifer Sultana NP [address] [place] [address] PCP - General Family Medicine 07/28/24 Juanito Srinivasan Income Tax Auditor 05/10/23 Francisco J Palomino Income Tax AuditorClosing Manager 05/16/23 Fawad Vargas Income Tax AuditorClosing Manager 08/11/24 documented as of this encounter
--- OUTSIDE RECORDS SUMMARY | 2025-07-01 17:06 | XMS_ITS | Encounter Summary ---
Author Organization [employer] Address [address] [facility] 7t [place] [address] Care Team Providers Care Senior Software Developer Name Role Phone Jennifer Sultana NP Primary Care Provider [phone] Encounter Details Date Type Department Care Team ([facility] Contact Info) Description 08/12/2024 Telephone [facility] [address] [place] [address] Jennifer Sultana NP [address] [place] [address] Social History Tobacco Use Types Packs/Day Years [...] Description 08/03/2025 10:45 AM EST Office Visit [facility] [address] [place] [address] Jennifer Sultana NP [address] [place] [address] 09/18/2025 1:00 PM EST Office Visit [facility] [address] [place] [address] Isaiah, Meli, OD [address] [place] [address] documented as of this encounter Visit Diagnoses Not on filedocumented in this encounter Additional Health Concerns Assessment Noted Time PHQ-9 Depression Total Score: 27 024 2:31 PM EST documented as of this encounter Care Teams Senior Software Developer Relationship Specialty Start Date End Date Jennifer Sultana NP [address] [place] [address] PCP - General Family Medicine 07/28/[address] Technologist 05/10/23 Francisco J Palomino Radiology Ct TechnologistGinner 05/16/[address] TechnologistGinner 08/11/24 documented as of this encounter
--- OUTSIDE RECORDS SUMMARY | 2025-07-01 17:06 | XMS_ITS | Encounter Summary ---
Demographics Address [address] [facility] [address] [place] [address] Home Phone Mobile Phone Work Phone Email Address Preferred Language en Marital Status Christianity Affiliation Unknown Race White Ethnic Group Unknown Author Organization [employer] Address [address] [place] [address] 7t [place] [address] Care Team Providers Care Barrel Burner Name Role Phone Ju Khan ANP Primary Care Provider [phone] Jennifer Sultana IT BUSINESS ANALYST Primary Care Provider [phone] Reason for Visit * Reason Comments Med Refill Encounter Details Date Type Department Care Team (Late st Contact Info) Description 11/07/2023 Refill [facility] [address] [place] [address] Ju Khan ANP 230 [place] [address] Spondylosis 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 Social [...] Description 08/03/2025 10:45 AM EST Office Visit [facility] [address] [place] [address] Jennifer Sultana NP [address] [place] [address] 09/18/2025 1:00 PM EST Office Visit [facility] [address] [place] [address] Isaiah, Meli, OD [address] [place] [address] documented as of this encounter Visit Diagnoses Diagnosis Spondylosis 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 documented in this encounter Additional Health Concerns Assessment Noted Time PHQ-9 Depression Total Score: 9 12/01/19 23 10:12 AM EDT documented as of this encounter Care Teams Barrel Burner Relationship Specialty Start Date End Date Ju Khan ANP [address] [place] [address] PCP - General Family Medicine 03/20/22 07/27/24 Jennifer Sultana NP [address] [place] [address] PCP - General Family Medicine 07/28/24 Juanito Srinivasan Chair Inspector 05/10/23 Francisco J Palomino Chair InspectorMaster Control Operator 05/16/23 Fawad Vargas Chair InspectorMaster Control Operator 08/11/24 documented as of this encounter
--- OUTSIDE RECORDS SUMMARY | 2025-07-01 17:06 | XMS_ITS | Clinical Summary ---
Author Organization [employer] Address [address] [place] [address] 7 [place] [address] Care Team Providers Care Accounting Manager Controller Name Role Phone Jennifer Sultana NP Primary Care Provider [phone] Allergies Active Allergy Reactions Criticality Noted Date [...] MOUTH EVERY MORNING 90 tablet 3 Active rosuvastatin (Crestor) 10 MG tabletIndications :Mixed [...] CAPSULE BY MOUTH EVERY EVENING 90 capsule Active pregabalin (Lyrica) 75 MG capsuleIndication s:Spondylosis 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 Take 1 capsule (75 mg) by mouth 3 times daily. 90 capsule 025 Active folic acid (Folvite) 1 MG tablet TAKE 1 TABLET BY MOUTH EVERY MORNING 90 tablet 1 025 Active ondansetron (Zofran) 4 MG tablet Take 1 tablet (4 mg) by mouth if needed each day for nausea or vomiting. 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 04/0 01/2023 Encounters Date Type Department Care Team Description 06/28/2025 Refill [facility] [address] [place] [address] Jennifer Sultana NP 06/16/2025 Refill [facility] [address] [place] [address] Jennifer Sultana NP Spondylosis 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 06/10/[address] [address] Jennifer Sultana NP Referral 06/03/[address] [address] Jennifer Sultana NP Durable Medical Equipment 05/31/2025 Refill [facility] [address] [place] [address] Jennifer Sultana NP 05/25/2025 Patient Outreach [facility] [address] [place] [address] Jennifer Sultana NP Pre-visit Planning (SDOH unable to reach LVM ) 05/08/2025 Patient Outreach [facility] [address] [place] [address] Jennifer Sultana NP Pre-visit Planning (SDOH unable to reach LVM) 05/08/2025 Telephone [facility] [address] [place] [address] Jennifer Sultana NP Chart Prep 05/07/2025 Telephone [facility] [address] [place] [address] Jennifer Sultana NP Med Refill 05/05/[address] [address] Jennifer Sultana NP Spondylosis 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 04/28/[address] [address] Jennifer Sultana NP Error (VOID this visit) 04/20/[address] [address] Jennifer Sultana NP Gastroesophageal reflux disease, unspecified whether esophagitis present 04/16/[address] [address] Jennifer Sultana NP Referral 04/10/2025 2:45 PM EDT Office Visit [address] [address] Nerissa Henriquez CNP Nonintractable chronic migraine (Primary Dx); Physiologic anisocoria 04/10/2025 Travel 04/09/[address] [address] Jennifer Sultana NP ER Follow-up 04/09/[address] [address] Jennifer Sultana NP ER Follow-up 04/08/2025 Orders Only GENERIC EXTERNAL DATA DEPARTMENT Provider, Generic External Data 04/06/[address] [address] Bree Love MD Spondylosis 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 04/06/[address] [address] Jennifer Sultana NP chartprep 04/02/[address] [address] Victoria Santos FNP Chart Prep 04/02/[address] [address] Bree Love MD Spondylosis 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 from Last 3 Months Immunizations Immunization Administration [...] Description 08/03/2025 10:45 AM EST Office Visit [facility] [address] [place] [address] Jennifer Sultana, [place] [address] [place] [address] 09/18/2025 1:00 PM EST Office Visit [facility] [address] [place] [address] IsaiahMeli posey, OD [address] [place] [address] Health Maintenance Due Date Last Done Comments [...] 10/25/2026 10/25/2016, 03/04/2010 Lipid Panel 05/02/2029 05/02/2024, 06/0 03/2023, 05/08/2022, Additional history exists RSV Patients [...] PM EDT Narrative 04/08/2025 6:13 PM EDT [place] [address] [address] Scan Report Signed Patient: Cherri Nash MR#: [id number] : 1965 Acct:[id number] Age/Sex: 60 / F ADM Date: 04/08/25 Loc: HO.ED Attending Dr: Ordering Physician: Bobbi Ríos Date of Service: 04/08/25 Procedure(s): CT angio head neck Accession Number(s): [id number] cc: Jennifer Sultana CONCRETE STONE FINISHING SUPERVISOR; Bobbi Ríos Report Number: [id number]: Total DLP = 1381.00 mGy-cm CLINICAL HISTORY: [...] in OV> 04/08/251812 DD/ 11 TD/TT: 04/08/251811 Credit Counselor: Procedure Note Donotuseinterpreter, Image - 04/08/[address] [place] [address] [address] Scan Report Signed Patient: Cherri Nash JMR#: [id number] : 1965Acct:[id number] Age/Sex: 60 / FADM Date: 04/08/25 Loc: HO.ED Attending Dr: Ordering Physician: Bobbi Ríos Date of Service: 04/08/25 Procedure(s): CT angio head neck Accession Number(s): [id number] cc: Jennifer Sultana NP; Bobbi Ríos Report Number: [id number]: Total DLP = 1381.00 mGy-cm CLINICAL HISTORY: [...] in OV> 04/08/251812 DD/ 11 TD/TT: 04/08/251811 Credit Counselor: [facility] External Provider IMG CT PROCEDURES Final Result * (ABNORMAL) CBC auto differential (04/08/2025 12:52 PM EDT) White Blood Count 10.2 4.8 - 10.8 X10*3/uL [facility] Red Blood Count 4.71 4.20 - 5.50 X10*6/uL [facility] Hemoglobin 13.1 12.0 - 16.0 g/dl [facility] Hematocrit 40.1 37.0 - 47.0 % [facility] Mean Corpuscular Volume 85.1 80.0 - 98.0 fL [facility] Mean Corpuscular Hemoglobin 27.8 27.0 - 33.0 pg [facility] Mean Corpuscular HGB Conc 32.7 31.0 - 35.0 g/dl [facility] Red Cell Distribution Width 15.4 11.0 - 16.0 % [facility] Platelet Count 242 160 - 400 X10*3/uL [facility] Mean Platelet Volume 11.5 9.4 - 12.3 fL [facility] Neutrophils Percent Auto 73.7(H) 45 - 73 % [facility] Imm Gran Pct Auto 0.3 0.0 - 0.4 % [facility] Lymphocytes Percent Auto 15.4(L) 20 - 40 % [facility] Monocytes Percent Auto 6.4 2 - 11 % [facility] Eosinophils Percent Auto 3.5 0 - 4 % [facility] Basophils Percent Auto 0.7 0 - 2 % [facility] NRBC Pct Auto 0.0 0.0 - 0.2 /100WBC [facility] Neutrophils Absolute Auto 7.5 2.0 - 8.3 x10*3/uL [facility] Imm Gran Abs Auto 0.03 0.00 - 0.03 X10*3/uL [facility] Lymphocytes Absolute Auto 1.6 1.2 - 4.9 X10*3/uL [facility] Monocytes Absolute Auto 0.7 0.1 - 1.2 X10*3/uL [facility] Eosinophils Absolute Auto 0.4 0.0 - 0.4 X10*3/uL [facility] Basophils Absolute Auto 0.1 0.0 - 0.2 X10*3/uL [facility] NRBC Abs Auto 0.000 0.0 - 0.012 X10*3/uL [facility] 04/08/2025 12:5 2 PM EDT 04/08/2025 1:16 PM EDT us Generic External Data Provider LAB BLOOD ORDERAB LES Final Result [facility] [address] [place] [address] [phone] * Comprehensive Metabolic Panel (04/08/2025 12:52 PM EDT) Sodium 142 135 - 145 mmol/L [facility] Potassium 3.3 3.3 - 5.1 mmol/L [facility] Chloride 102 96 - 108 mmol/L [facility] Carbon Dioxide 29 22 - 29 mmol/L [facility] Anion Gap 14 12 - 20 [facility] Urea Nitrogen (BUN) 10 9 - 16 mg/dL [facility] Creatinine, Serum 1.06 0.5 - 1.4 mg/dL [facility] Creatinine Clr Calc Pharmacy 58.5 [facility] Comment:Provided height and weight: 165.1 cm,74.8 kg.eGFR (calculated from the MDRD study equation) and eCrCl(calculated from the Cockcroft-Gault equation) are based ondifferent parameters and may not yield comparable results.If eCrCl result is absurd, please check patient'sheight/weight. Estimated Glomerular Filt Rate 53 [facility] Comment:Chronic Kidney Disea se: Estimated GFR < 60 mL/min/1.57r3Dlrrht Kidney Disease: Estimated GFR < 15 mL/min/1.73m2 Glucose 80 60 - 115 mg/dL [facility] Calcium 10.1 8.4 - 10.2 mg/dL [facility] Bilirubin, Total 0.3 0.0 - 1.0 mg/dL [facility] Aspartate Amino Transferase 17 5 - 31 U/L [facility] Alanine Aminotransferase 9 0 - 31 U/L [facility] Total Protein 7.8 6.5 - 8.0 g/dL [facility] Albumin Level 4.0 3.5 - 5.0 g/dL [facility] Alkaline Phosphatase 99 39 - 117 U/L [facility] 04/08/2025 12:5 2 PM EDT 04/08/2025 1:16 PM EDT us Generic External Data Provider LAB BLOOD ORDERAB LES Final Result [facility] [address] [place] [address] [phone] * BI Mammogram Screening Tomosynthesis Bilateral (06/19/2024 1:23 PM EDT) Anatomical Region Laterality Modality Breast Bilateral Mammography 06/19/2024 1:23 PM EDT Narrative 06/28/2024 10:33 AM EDT [address] [place] [address] Mammography Report Signed Patient: Cherri Nash MR#: [id number] : 1965 Acct:[id number] Age/Sex: 59 / F ADM Date: 06/19/24 Loc: HO.MAMMO Attending Dr: Manolo Garcia NP Ordering Physician: MANOLO GARCIA NP Results: 1Negative Date of Service: 06/19/24 Follow Up: 1 Year From Orig inal Mammogram Procedure(s): MM tomosynthesis screening BI Accession Number(s): [id number] cc: MANOLO GARCIA NP EXAMINATION: MM SCREENING [...] 06/28/24 1030 DD/ 1323 TD/TT: 06/19/24 1336 Credit Counselor: Procedure Note Donotuseinterpreter, Image - 06/28/[address] [place] [address] Mammography Report Signed Patient: Cherri Nash JMR#: [id number] : 1965Acct:[id number] Age/Sex: 59 / FADM Date: 06/19/24 Loc: HO.MAMMO Attending Dr: Manolo Garcia CONCRETE STONE FINISHING SUPERVISOR Ordering Physician: MANOLO GARCIA NPResults: 1Negative Date of Service: 06/19/24Follow Up: 1 Year From Orig ina Mammogram Procedure(s): MM tomosynthesis screening BI Accession Number(s): [id number] cc: MANOLO GARCIA NP EXAMINATION: MM SCREENING [...] 06/28/24 1030 DD/ 1323 TD/TT: 06/19/24 1336 Credit Counselor: Manolo Garcia ANP IMG BI PROCEDURES Final Result * (ABNORMAL) Lipid Panel, Standard (05/02/2024 2:55 PM EDT) Triglycerides 286(H) <150 mg/dL [facility] Comment:Desirable Triglyceri de: less than 150 mg/dLBorderline High Triglyceride 150-199 mg/dLHigh Triglyceride: 200-499 mg/dLVery High Triglyceride: greater than or equal to 5OO mg/dL Cholesterol 216(H) <200 mg/dL [facility] Comment:Desirable Cholestero l: less than 200 mg/dLBorderline High Cholesterol: 200-239 mg/dLHigh Cholesterol: greater than 239 mg/dL LDL Cholesterol Calculated 123(H) <100 mg/dL [facility] Comment:Desirable LDL: less than 100 mg/dLNear Optimal/Above Optimal LDL: 110- 129 mg/dLBorderline High LDL: 130-159 mg/dLHigh LDL: 160-189 mg/dLVery High LDL: greater than or equal to 190 mg/dL HDL Cholesterol 36(L) >40 mg/dL [facility] Comment:Desirable HDL: great er than 40 mg/dL Note: This HDL assay may give artificially low results in patients with liver disease. 05/02/2024 2:55 PM EDT 05/02/2024 4:04 PM EDT [facility] LAB BLOOD ORDERABLES Final Resul t [facility] [address] [place] [phone] * HIV 1/2 ANTIGEN/ANTIBODY,FOURTH GENERATION W/RFL (05/08/2022 2:27 PM EDT) Pathologist [facility] HIV-1/2 ANTIGEN AND ANTIBODIES, 4TH GENERATION W/ [...] purpose. For additional information please refer to http://education.[employer].Jymob/faq/JLC343 (This link is being provided for informational/ educational purposes only.) The performance of this assay has not been clinically validated in patients less than 2 years old. 05/08/2022 2:27 PM EDT Manolo Garcia ANP LAB BLOOD ORDERABLES Final Resul t Performing Organization Address [facility]/ZIP Co de Phone Number [facility] [address] * Hm Colonoscopy (04/12/2018) Colonoscopy Normal Normal Historical Provider HEALTH MAINTENANCE Final Result * HPV mRNA E6/E7 (10/25/2016 9:30 AM EST) HPV mRNA E6/E7 Not Detected NOT DETECTED [facility] Comment: This test was performed using the APTIMA(R) HPV Assay ([employer] This assay detects E6/E7 viral messenger RNA (mRNA) from 14 high-risk HPV types (16,18,31,33,35,39,45,51, 52,56,58,59,66,68). For additional information please refer to: http://education.[employer]/faq/FEJ492m8 (This link is being provided for informational/ educational purposes only.) Test Performed by [facility] [employer], [employer] [facility], [address] [place] [address] Naif Pereira M.D., Ph.D., Director of Laboratories , [place] [id number] Please note: Effective 05/08/2016, HPV testing will be performed using [employer]'s APTIMA test which targets mRNA. Detecting mRNA instead of DNA, as in older methods, offers significant improvements in specificity. 10/25/2016 9:30 AM EST Hazel Corcoran MD HISTORICAL/NON ORDERABLE LABS Final Result Performing Organization Address [facility] Co de Phone Number [facility] [address] from Last 3 Months or Most Recently Relevant to Health Maintenance [place] [place] [address] C3 Care Teams Accounting Manager Controller Relationship Specialty Start Date End Date Jennifer Sultana NP [address] [place] [address] PCP - General Family Medicine 07/28/24 Juanito Srinivasan Python Engineer 05/10/23 Francisco J Palomino Python EngineerQuality Engineer 05/16/23 Fawad Vargas Python EngineerQuality Engineer 08/11/24
--- OUTSIDE RECORDS SUMMARY | 2025-07-01 17:06 | XMS_ITS | Encounter Summary ---
Author Organization [facility] Address [address] [facility] [address] [place] [address] Phone Care Team Providers Care Fire Apparatus Engineer Name Role Phone Nick Tejada DO Primary Care Provider Encounter Details Date Type Department Care Team (Late st Contact Info) Description 05/30/2018 Ancillary Orders [facility] [address] [place] [address] Nick Tejada DO [address] [place] [address] Dizziness Social History Tobacco Use Types Packs/Day [...] giddiness documented in this encounter Care Teams Fire Apparatus Engineer Relationship Specialty Start Date End Date Nick Tejada [address] [place] [address] PCP - General Cardiology 05/29/18 documented as of this encounter Additional Source Comments The information contained in this document represents components of the legal health record. It is not the complete legal health record.[facility]
--- OUTSIDE RECORDS SUMMARY | 2025-07-01 17:06 | XMS_ITS | Encounter Summary ---
Demographics Address [address] [facility] [address] [place] [address] Home Phone Mobile Phone Work Phone Email Address Preferred Language en Marital Status Muslim Affiliation Unknown Race White Ethnic Group Unknown Author Organization [employer] Address [address] [place] [address] 7 [place] [address] Care Team Providers Care Rn Clinical Name Role Phone Ju Khan ANP Primary Care Provider [phone] Jennifer Sultana NP Primary Care Provider [phone] Reason for Visit * Reason Comments Med Refill Encounter Details Date Type Department Care Team ([facility] st Contact Info) Description 10/28/2023 Refill [facility] [address] [place] [address] Ju Khan ANP [address] [place] [address] Multiple joint pain Social History Tobacco Use [...] Office Visit [facility] [address] [place] [address] Jennifer Sultana NP [address] [place] [address] 09/18/2025 1:00 PM EST Office Visit [facility] [address] [place] [address] Isaiah, Meli, OD [address] [place] [address] documented as of this encounter Visit Diagnoses Diagnosis Multiple joint pain Pain in joint, multiple sites documented in this encounter Additional Health Concerns Assessment Noted Time PHQ-9 Depression Total Score: 9 12/01/19 23 10:12 AM EDT documented as of this encounter Care Teams Rn Clinical Relationship Specialty Start Date End Date Ju Khan ANP [address] [place] [phone] PCP - General Family Medicine 03/20/22 07/27/24 Jennifer Sultana NP [address] [place] [address] PCP - General Family Medicine 07/28/24 Juanito Srinivasan Tool Machine Set Up Operator 05/10/23 Francisco J Palomino Tool Machine Set Up OperatorOccupational Therapist Assistant 05/16/23 Fawad Vargas Tool Machine Set Up OperatorOccupational Therapist Assistant 08/11/24 documented as of this encounter
--- OUTSIDE RECORDS SUMMARY | 2025-07-01 17:06 | XMS_ITS | Encounter Summary ---
Author Organization [employer] Address [address] [place] [address] [place] [address] Care Team Providers Care Watch Technician Name Role Phone Ju Khan ANP Primary Care Provider [phone] Jennifer Sultana BLOW MOLD OPERATOR Primary Care Provider [phone] Reason for Visit * Reason Onset Date Comments Med Refill 03/22/2023 Encounter Details Date Type Department Care Team ([facility] st Contact Info) Description 03/22/2023 Telephone [facility] [address] [place] [address] Ju Khan ANP [address] [place], [place] [phone] Med Refill Social History Tobacco Use Types [...] Description 08/03/2025 10:45 AM EST Office Visit [facility] [address] [place] [address] Jennifer Sultana NP [address] [place] [address] 09/18/2025 1:00 PM EST Office Visit [facility] [address] [place] [address] Meli Colon, OD [address] [place] [address] documented as of this encounter Visit Diagnoses Not on filedocumented in this encounter Additional Health Concerns Assessment Noted Time PHQ-9 Depression Total Score: 9 12/01/19 23 10:12 AM EDT documented as of this encounter Care Teams Watch Technician Relationship Specialty Start Date End Date Ju Khan ANP [address] [place] [address] PCP - General Family Medicine 03/20/22 07/27/24 Jennifer Sultana NP [address] [place] [address] PCP - General Family Medicine 07/28/24 Juanito Srinivasan Consumer Loan Officer 05/10/23 Francisco J Palomino Consumer Loan OfficerContract Sheltered Workshop Supervisor 05/16/23 Fawad Vargas Consumer Loan OfficerContract Sheltered Workshop Supervisor 08/11/24 documented as of this encounter
--- OUTSIDE RECORDS SUMMARY | 2025-07-01 17:06 | XMS_ITS | Clinical Summary ---
Author Organization [facility] Address [address] [facility] [address] [place] [address] Phone Care Team Providers Care Supervisor Bakery Sanitation Name Role Phone Nick Tejada DO Primary Care Provider [phone] Social History Tobacco Use Types Packs/Day Years [...] file Medical Devices Not on file Insurance [facility] C3 ACO C3 ACO C3 ACO C3 ACO C3 ACO C[address] [place] [address] [place] [address] [address] [place] [address] [place] [address] [place] [address] C3 ACO Care Teams Supervisor Bakery Sanitation Relationship Specialty Start Date End Date Nick Tejada DO [address] [place] [address] PCP - General Cardiology 05/29/18 Additional Source Comments The information contained in this document represents components of the legal health record. It is not the complete legal health record.[facility]
== END 2025-07-01 15:23 | disposition home or self-care (01) ==
LOC: HO.HUSH 13:53
PROVIDERS: PCP Nurse Practitioner Family; Visit Provider Urology
DX: R39.15 Urgency of urination (principal); R32 Unspecified urinary incontinence; Z87.891 Personal history of nicotine dependence; Z13.9 Encounter for screening, unspecified
CPT/HCPCS: 99213

== ENCOUNTER → 2025-07-01 13:53 | Outpatient (BNVA) | payer MEDICAID, SELFPAY | PROVIDERS: PCP Nurse Practitioner Family; Visit Provider Urology | DX: R39.15 Urgency of urination (principal); R32 Unspecified urinary incontinence; Z87.891 Personal history of nicotine dependence | CPT/HCPCS: 51798; 81003; 99212 ==

== ENCOUNTER 2025-07-14 16:42 | Emergency (ER) | payer MEDICAID, SELFPAY ==
--- NOTE | ~2025-07-14 | XR_ITS ---
CLINICAL HISTORY: PAIN, SWELLING 3 view right ankle Comparison: None provided Findings: Bones intact. No dislocations. Periarticular osteophyte formation at the tibiotalar, talonavicular, naviculocuneiform, and subtalar joints. Calcaneal spurring. No ankle effusion. No radiopaque foreign body. Lateral soft tissue swelling. IMPRESSION: 1. No acute findings. This document has been electronically signed by: Volodymyr Avelar MD on 07/14/2025 17:58:45
--- NOTE | ~2025-07-14 | US_ITS ---
CLINICAL HISTORY: rt leg pain Venous duplex ultrasound right lower extremity Comparison: None provided Findings: The visualized deep veins are fully compressible with normal Doppler color flow and spectral tracings. No popliteal cyst. IMPRESSION: 1. Negative for right lower extremity deep vein thrombosis. This document has been electronically signed by: Volodymyr Avelar MD on 07/14/2025 18:38:24
--- NOTE | ~2025-07-14 | XR_ITS ---
CLINICAL HISTORY: sob 1 view chest x-ray Comparison: CT/REG/WI/SR - CT CHEST WO IV CON - 04/03/23 13:48 EDT Findings: Mild interstitial prominence in both lungs may represent pulmonary vascular congestion. Heart size is normal. No acute fracture. IMPRESSION: Mild interstitial prominence in both lungs may represent pulmonary vascular congestion. This document has been electronically signed by: Kaleb Hager MD on 07/14/2025 23:05:11
--- NOTE | ~2025-07-14 | XR_ITS ---
CLINICAL HISTORY: PAIN 4 view right knee Comparison: None provided Findings: No fractures or dislocations. No significant loss of joint space, osteophytes, or erosions. Moderate knee joint effusion. No radiopaque foreign body. IMPRESSION: Knee joint effusion. This document has been electronically signed by: Volodymyr Avelar MD on 07/14/2025 17:57:25
--- NOTE | ~2025-07-14 | XR_ITS ---
CLINICAL HISTORY: PAIN, SWELLING 4 view right foot Comparison: None provided Findings: Bones intact. No dislocations. 1st and 5th metatarsal osteotomies. Joint space narrowing and periarticular osteophyte formation at the 1st metatarsophalangeal joint as well as the interphalangeal joints of the digits. Periarticular osteophyte formation at the tibiotalar, talonavicular, naviculocuneiform, and subtalar joints. Calcaneal spurring. No ankle effusion. No radiopaque foreign body. IMPRESSION: 1. No acute findings. This document has been electronically signed by: Volodymyr Avelar MD on 07/14/2025 17:57:51
[2025-07-14 16:47] VITALS: BP 115/81; PULSE 126; RESP 18; TEMP 36.6; O2SAT 99; BMI 31.2
--- NOTE | 2025-07-14 16:47 | ED.UPPEXIN ---
HPI - Extremity Injury (Upper) General Chief Complaint: General Medical Stated Complaint: Injury Time Seen by Provider: 07/14/25 21:59 Source: patient Mode of arrival: ambulatory Related Data Home Medications ?Medication ?Instructions ?Recorded ?Confirmed folic acid 1 mg tablet 1 mg PO DAILY 01/31/21 07/01/25 rosuvastatin 10 mg tablet 10 mg PO QAM 02/28/23 07/01/25 verapamil 120 mg 24 hr 120 mg PO QPM 02/28/23 07/01/25 capsule,extended release cyclobenzaprine 5 mg tablet 5 mg PO ONCE PRN 07/23/24 07/01/25 furosemide 20 mg tablet (Lasix) 20 mg PO QAM 07/23/24 07/01/25 metoprolol tartrate 25 mg tablet 12.5 mg PO BID 11/19/24 07/01/25 cholecalciferol (vitamin D3) 50 50 mcg PO DAILY 06/18/25 07/01/25 mcg (2,000 unit) capsule clonazepam 2 mg tablet 2 mg PO TID PRN anxiety 06/18/25 07/01/25 folic acid 1 mg tablet 2 mg PO DAILY 06/18/25 07/01/25 hydroxyzine HCl 10 mg tablet 10 mg PO BEDTIME 06/18/25 07/01/25 ziprasidone HCl 80 mg capsule 80 mg PO .DAILY AT BEDTIME 06/18/25 07/01/25 (Kameron) Previous Rx's ?Medication ?Instructions ?Recorded albuterol sulfate 90 mcg/actuation 2 puff PO Q4-6H PRN shortness of 08/01/22 aerosol inhaler breath or wheezing #1 ea simethicone 125 mg capsule (Gas-X 125 mg PO BEDTIME PRN abdominal 04/11/23 Extra Strength) distention 30 days #30 caps lubiprostone 8 mcg capsule 8 mcg PO BID 30 days #60 caps 11/08/23 docusate sodium 100 mg capsule 200 mg (2 x 100 mg) PO BEDTIME 30 02/09/24 (Colace) days #60 caps methylcellulose (laxative) 500 mg 500 mg PO BID 30 days #60 tabs 02/09/24 tablet (Citrucel) polyethylene glycol 3350 17 gram 17 g PO BID constipation 60 days 05/08/25 oral powder packet (Miralax) #30 ea mometasone 200 mcg/actuation HFA 1 puff inhalation BEDTIME #13 grams 05/21/25 aerosol inhaler (Asmanex HFA) solifenacin 10 mg tablet (Vesicare) 10 mg PO DAILY #30 tabs 06/01/25 levofloxacin 500 mg tablet 500 mg PO DAILY #7 tabs 06/25/25 prednisone 20 mg tablet 40 mg (2 x 20 mg) PO DAILY #10 tabs 06/25/25 tiotropium 2.5 mcg-olodaterol 2.5 2 puff inhalation DAILY #4 grams 06/25/25 mcg/actuation mist for inhalation (Stiolto Respimat) theophylline 450 mg 450 mg PO DAILY #30 tabs 07/13/25 tablet,extended release,12 hr dexamethasone 6 mg tablet 12 mg (2 x 6 mg) PO DAILY #2 tabs 07/14/25 Allergies Allergy/AdvReac Type Severity Reaction Status Date / Time codeine Allergy Severe Anaphylaxis Verified 07/14/25 16:50 aspirin Allergy Mild Hives Verified 07/14/25 16:50 Penicillins (PENICILLINS) Allergy Mild HIVES Verified 07/14/25 16:50 Sulfa (Sulfonamide Allergy Mild Hives Verified 07/14/25 16:50 Antibiotics) sulfamethoxazole (From Allergy Mild inflamed Verified 07/14/25 16:50 Bactrim) hives, rash, trimethoprim (From Bactrim) Allergy Mild inflamed Verified 07/14/25 16:50 hives, rash, amoxicillin (AMOXICILLIN) Allergy Unknown HIVES Verified 07/14/25 16:50 citalopram (From Celexa) Allergy Hives Verified 07/14/25 16:50 lamotrigine (From Lamictal) Allergy Hives Verified 07/14/25 16:50 olanzapine Allergy Hives Verified 07/14/25 16:50 morphine AdvReac Mild Itching Verified 07/14/25 16:50 haloperidol (From Haldol) AdvReac Angioedema Verified 07/14/25 16:50 PMFSH Past Medical History Medical History Delayed gastric emptying Hypercalcemia Tearfulness Rhinosinusitis Essential (primary) hypertension Anorexia nervosa, restricting type Blindness of left eye Thoracic back pain Uterine leiomyoma Vitamin D deficiency Visual impairment Stress incontinence of urine Chronic kidney disease, stage 3a Former smoker Rib lesion Recurrent acute sinusitis Raised TSH level Pure hypercholesterolemia Mixed hyperlipidemia Postural dizziness Opioid dependence Muscle pain Multiple joint pain Moderate persistent asthma without complication Lumbar radiculopathy Chronic rhinitis Hepatitis C Blood in urine Asthenia COVID-19 vaccine series completed Bipolar disorder Chronic pain syndrome Disc degeneration, lumbar Spondylosis 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 Chronic constipation Deviated septum Emphysema lung Adenomatous colon polyp Acid reflux Surgical History History of tympanoplasty S/P surgery on nasal septum History of bunionectomy History of tubal ligation History of esophagogastroduodenoscopy (EGD) Hx of colonoscopy Family History Family History Father Brain cancer Mother Ovarian cancer Breast cancer Cervical cancer Social History Social History Household Members: Children Alcohol intake: never Patient Tobacco Use Status: Former Tobacco user Tobacco use type: Cigarette Advance Directives: No Advance Directives Information Provided: No Do you have a plan to hurt others: No Plan Current occupational status: unemployed Physical Exam Vital Signs: Vital Signs: Last Vital Signs Temp 98.7 F 07/14/25 23:04 Pulse 114 H 07/14/25 23:04 Resp 16 07/14/25 23:04 BP 101/62 07/14/25 23:04 Pulse Ox 98 07/14/25 23:04 O2 Del Method Room Air 07/14/25 23:04 BMI result Body Mass Index 31.2 Course Course Course Narrative: This is an RME: Additional HPI, ROS, PE not included below will be deferred to primary provider. RME assessment and note performed by: Bobbi Ríos PA-C 60-year-old female, with a past medical history of hypertension, hepatitis c, chronic kidney disease, FILIPE, carotid artery stenosis, COPD, who presents to the ER with a complaint of right shoulder pain x 1 week. Reports that she walked home from an urgent care last week and developed worsening right knee pain and swelling. Reports that she went to get up and using her right shoulder and arm she boosted herself and suddenly felt pain in her right shoulder. Right leg with 1+ pitting edema. pt tachy in the 130s. Reporting some SOB, no CP Plan: labs, ekg, us, xrays, further er eval needed Medications Administered Discontinued Medications Generic Name Dose Route Start Last Admin Trade Name Laureen PRN Reason Stop Dose Admin Albuterol Sulfate 7.5 mg/ 10 mg 07/14/25 22:26 07/14/25 22:28 Albuterol Sulfate 2.5 mg INHALE 07/14/25 22:27 10 mg ONCE ONE Administration Dexamethasone 10 mg 07/14/25 22:25 07/14/25 23:04 Dexamethasone 2 Mg Tablet PO 07/14/25 22:26 10 mg ONCE ONE Administration Medical Decision Making Differential Diagnosis Differential Diagnoses: The differential diagnosis associated with the presentation includes Admission/Observation Consideration of admission/observation: Escalation of care including admission/observation considered Lab Data MDM Lab Attestation statement: I reviewed the patient's lab results. 07/14/25 17:35 07/14/25 17:35 Labs: Lab Results 07/14/25 Range/Units 17:35 WBC 12.7 H (4.8-10.8) X10*3/uL RBC 4.97 (4.20-5.50) X10*6/uL Hgb 14.3 (12.0-16.0) g/dl Hct 42.5 (37.0-47.0) % MCV 85.5 (80.0-98.0) fL MCH 28.8 (27.0-33.0) pg MCHC 33.6 (31.0-35.0) g/dl RDW 15.8 (11.0-16.0) % Plt Count 273 (160-400) X10*3/uL MPV 11.3 (9.4-12.3) fL Immature Gran % (Auto) 0.3 (0.0-0.4) % Neut % (Auto) 73.2 H (45-73) % Lymph % (Auto) 18.4 L (20-40) % Mcnairy % (Auto) 3.1 (2-11) % Eos % (Auto) 4.6 H (0-4) % Baso % (Auto) 0.4 (0-2) % Lymph # (Auto) 2.3 (1.2-4.9) X10*3/uL Mcnairy # (Auto) 0.4 (0.1-1.2) X10*3/uL Eos # (Auto) 0.6 H (0.0-0.4) X10*3/uL Baso # (Auto) 0.1 (0.0-0.2) X10*3/uL Abs Immat Gran (auto) 0.04 H (0.00-0.03) X10*3/uL Absolute Neuts (auto) 9.3 H (2.0-8.3) x10*3/uL Absolute Nucleated RBC 0.000 (0.0-0.012) X10*3/uL Nucleated RBC % (auto) 0.0 (0.0-0.2) /100WBC Sodium 140 (135-145) mmol/L Potassium 3.5 (3.3-5.1) mmol/L Chloride 103 (96-108) mmol/L Carbon Dioxide 26 (22-29) mmol/L Anion Gap 15 (12-20) BUN 18 H (9-16) mg/dL Creatinine 1.28 (0.5-1.4) mg/dL Estim Creat Clear Calc 49.7 Estimated GFR 43 Random Glucose 106 (60-115) mg/dL Calcium 9.9 (8.4-10.2) mg/dL Magnesium 2.1 (1.6-2.6) mg/dL Total Bilirubin 0.6 (0.0-1.0) mg/dL Direct Bilirubin 0.2 (0.0-0.5) mg/dL AST 69 H (5-31) U/L ALT 14 (0-31) U/L Alkaline Phosphatase 101 (39-117) U/L Troponin I High Sens < 2.7 (<3.5-17.0) ng/L Total Protein 7.6 (6.5-8.0) g/dL Albumin 3.7 (3.5-5.0) g/dL Independent Interpretation I performed an independent interpretation of an: EKG and Plain X-Ray Interpretation: CXR: no infiltrate EKG: nonspecific ST abnormality Radiology Impression Discussion of test interpretation with radiology: I have reviewed the radiologist's reading. Discharge Plan Discharge Clinical Impression: Acute bronchitis, Arthralgia, Dependent rubor, Edema of right lower extremity due to peripheral venous insufficiency Patient Disposition: Home, Self-Care Instructions: Venous Insufficiency (DC), Stasis Dermatitis (ED) Additional Instructions: ED Discharge Summary 60-year-old female presented with right shoulder pain after a pop while lifting herself in bed and right lower extremity swelling and pain. Past medical history includes osteoarthritis, CKD stage III, coronary artery disease, obstructive sleep apnea, nicotine dependence, asthma, COPD/emphysema, and prior right patella fracture. Workup: - Venous duplex ultrasound: No DVT. - X-rays (right ankle, foot, knee): No acute findings except small joint effusion in knee. - Labs: Mildly elevated AST (69 U/L), otherwise unremarkable. - EKG: No malignant arrhythmia, nonspecific SVT abnormality. - Chest X-ray: Ordered, pending. Diagnoses: - Chronic venous insufficiency with stasis dermatitis (right lower extremity). - acute bronchitis- already finished course of antibiotics. - Degenerative rotator cuff disorder/shoulder strain (suspected). - Mildly elevated AST, etiology undetermined Treatments Provided: - In-ED breathing treatment for COPD/emphysema exacerbation. - Prescribed extended course of oral steroid. Advised to take again three days from now as was given long acting steroid in ER (decadron) - Advised use of compression stockings (20?30 mm Hg) and strict leg elevation for venous insufficiency/stasis dermatitis. - Conservative management for shoulder pain (rest, gradual mobilization) Discharge Instructions: - Venous insufficiency/stasis dermatitis: Wear compression stockings daily (20?30 mm Hg if tolerated), elevate right leg above heart level when seated or lying, maintain skin hygiene, and monitor for worsening redness, pain, or ulceration - COPD/emphysema: Continue prescribed oral steroids as directed; monitor for fever, increased shortness of breath, or chest pain; follow up with primary care or pulmonology. Chest X-ray results will be reviewed when available. - Shoulder pain: Rest shoulder, avoid heavy lifting, and gradually increase activity as tolerated. If pain worsens or function declines, follow up for further evaluation. - Mildly elevated AST: No acute intervention required; follow up with primary care for further evaluation if persistent. - General: Return to ED for new or worsening symptoms (e.g., severe pain, swelling, shortness of breath, chest pain, fever, or skin breakdown). Follow-up: - Primary care within 1?2 weeks for reassessment of leg swelling, shoulder pain, and review of pending chest X-ray. - Consider referral to physical therapy for shoulder rehabilitation if pain persists. - Smoking cessation counseling recommended due to CKD and cardiovascular risk. Patient education provided regarding compression therapy, steroid use, and return precautions. Prescriptions: New dexamethasone 6 mg tablet 12 mg PO DAILY Qty: 2 0RF Rx Instructions: Take on 07/17/2025 if needed No Action docusate sodium [Colace] 100 mg capsule 200 mg PO BEDTIME 30 Days Qty: 60 5RF Citrucel 500 mg tablet 500 mg PO BID 30 Days Qty: 60 2RF polyethylene glycol 3350 [Miralax] 17 gram powder in packet 17 g PO BID 60 Days Qty: 30 3RF Asmanex HFA 200 mcg/actuation HFA aerosol inhaler 1 puff inhalation BEDTIME Qty: 13 6RF solifenacin [Vesicare] 10 mg tablet 10 mg PO DAILY Qty: 30 5RF theophylline 450 mg tablet extended release 12 hr 450 mg PO DAILY Qty: 30 6RF folic acid 1 mg tablet 1 mg PO DAILY albuterol sulfate 90 mcg/actuation HFA aerosol inhaler 2 puff PO Q4-6H PRN (Reason: shortness of breath or wheezing) Qty: 1 6RF rosuvastatin 10 mg tablet 10 mg PO QAM verapamil 120 mg capsule,ext rel. pellets 24 hr 120 mg PO QPM metoprolol tartrate 25 mg tablet 12.5 mg PO BID simethicone [Gas-X Extra Strength] 125 mg capsule 125 mg PO BEDTIME PRN (Reason: abdominal distention) 30 Days Qty: 30 2RF furosemide [Lasix] 20 mg tablet 20 mg PO QAM cyclobenzaprine 5 mg tablet 5 mg PO ONCE PRN prednisone 20 mg tablet 40 mg PO DAILY Qty: 10 0RF levofloxacin 500 mg tablet 500 mg PO DAILY Qty: 7 0RF Stiolto Respimat 2.5-2.5 mcg/actuation mist 2 puff inhalation DAILY Qty: 4 6RF lubiprostone 8 mcg capsule 8 mcg PO BID 30 Days Qty: 60 3RF ziprasidone HCl [Geodon] 80 mg capsule 80 mg PO .DAILY AT BEDTIME Rx Instructions: give with food (meal/snack) clonazepam 2 mg tablet 2 mg PO TID PRN (Reason: anxiety) folic acid 1 mg tablet 2 mg PO DAILY hydroxyzine HCl 10 mg tablet 10 mg PO BEDTIME cholecalciferol (vitamin D3) 50 mcg (2,000 unit) capsule 50 mcg PO DAILY Referrals: [facility] [Provider Group] Clinical Impression: Arthralgia Jennifer Sultana, CRUSHER SETTER [Primary Care Provider, Family Practice] Referral Note: education on venous insufficiency and dependent rubor supervisor intermediates management Clinical Impression: Dependent rubor; Edema of right lower extremity due to peripheral venous insufficiency Print Language: Bolivian
--- NOTE | 2025-07-14 16:53 | ECG_ITS ---
Test Reason : DIZZINESS/SOB Blood Pressure : */* mmHG Vent. Rate : 117 BPM Atrial Rate : 117 BPM P-R Int : 124 ms QRS Dur : 72 ms QT Int : 344 ms P-R-T Axes : 64 21 57 degrees QTcB Int : 479 ms Sinus tachycardia Possible Left atrial enlargement Nonspecific ST abnormality Abnormal ECG When compared with ECG of 18-Mar-2021 13:39, Vent. rate has increased by [address] now depressed in Anterior leads Referred By: Bobbi Ríos Electronically Signed By: YASIR BUSBY
[2025-07-14 17:48] LABS: MANUAL DIFF FLAG NO
[2025-07-14 17:52] LABS: Hematocrit 42.5 % (37.0-47.0); Hemoglobin 14.3 g/dl (12.0-16.0); Imm Gran Abs Auto 0.04 X10*3/uL (0.00-0.03); Imm Gran Pct Auto 0.3 % (0.0-0.4); Lymphocytes Absolute Auto 2.3 X10*3/uL (1.2-4.9); Mean Corpuscular HGB Conc 33.6 g/dl (31.0-35.0); Mean Corpuscular Hemoglobin 28.8 pg (27.0-33.0); Mean Corpuscular Volume 85.5 fL (80.0-98.0); NRBC Abs Auto 0.000 X10*3/uL (0.0-0.012); NRBC Pct Auto 0.0 /100WBC (0.0-0.2); Platelet Count 273 X10*3/uL (160-400); Red Blood Count 4.97 X10*6/uL (4.20-5.50); White Blood Count 12.7 X10*3/uL (4.8-10.8)
[2025-07-14 18:10] LABS: Alanine Aminotransferase 14 U/L (0-31); Albumin Level 3.7 g/dL (3.5-5.0); Alkaline Phosphatase 101 U/L (39-117); Anion Gap 15 (12-20); Aspartate Amino Transferase 69 U/L (5-31); Blood Urea Nitrogen 18 mg/dL (9-16); Calcium 9.9 mg/dL (8.4-10.2); Carbon Dioxide 26 mmol/L (22-29); Chloride 103 mmol/L (96-108); Creatinine Clr Calc Pharmacy 49.7; Estimated Glomerular Filt Rate 43; Magnesium 2.1 mg/dL (1.6-2.6); Potassium 3.5 mmol/L (3.3-5.1); Sodium 140 mmol/L (135-145); Total Protein 7.6 g/dL (6.5-8.0)
[2025-07-14 18:28] LABS: Troponin-I High Sensitivity < 2.7 ng/L (<3.5-17.0)
[2025-07-14 22:27] VITALS: PULSE 96; RESP 18; O2SAT 98
[2025-07-14] MEDS: Albuterol Sulfate 7.5 MG, Albuterol Sulfate (0.083%) 2.5 MG 10 MG INHALE (22:28)
[2025-07-14 22:38] VITALS: BP 127/62; PULSE 116; RESP 18; TEMP 36.8; O2SAT 100
[2025-07-14 23:04] VITALS: BP 101/62; PULSE 114; RESP 16; TEMP 37.1; O2SAT 98
--- NOTE | 2025-07-14 23:11 | PC.NURSE ---
pt medicated per oct, tolerated whole well with water
[2025-07-15 00:04] VITALS: BP 101/62; PULSE 114; RESP 16; TEMP 37.1; O2SAT 98
--- OUTSIDE RECORDS SUMMARY | 2025-07-15 14:09 | XMS_ITS | Encounter Summary ---
Author Organization [employer] Address [address] [place] [address] [address] [place] [address] Care Team Providers Care Movie Producer Name Role Phone Ju Khan ANP Primary Care Provider [phone] Jennifer Sultana REVIEWER SALES Primary Care Provider [phone] Reason for Visit * Reason Onset Date Comments PT-1 06/11/2024 Encounter Details Date Type Department Care Team ([facility] st Contact Info) Description 06/11/2024 Telephone [facility] MEDICINE [address] [place], [place] [phone] Ju Khan ANP [address] [place], [place] [phone] PT-1 Social History Tobacco Use Types Packs/Day [...] Y/N: Yes Provider name or facility name: [facility] (Dr. Philippe Evans) Facility Address: [address] [place] [address] Escort needed: Y/N: Yes Do you have a wheelchair: Y/N: No If yes- Manual or electric: (Uses walker and cane) Visits: 3 times a month - Patient calling requesting PT1 Home Address verified: Y/N: Yes Provider name or facility name: [facility] Facility Address: [address] [place] [address] Escort needed: Y/N: Yes Do you have a wheelchair: Y/N: No If yes- Manual or electric: Walker and Cane Visits: 4 a month - Patient calling requesting PT1 Home Address verified: Y/N: Yes Provider name or facility name: Ramez John MD Facility Address: [address] [place] [address] Escort needed: Y/N: Yes Do you have a wheelchair: Y/N: No If yes- Manual or electric: Walker and cane Visits: 3 monthly documented in this encounter Plan of Treatment Upcoming Encounters Date Type Department Care Team (Late st Contact Info) Description 08/03/2025 10:45 AM EST Office Visit [facility] MEDICINE [address] [place] [address] Jennifer Sultana, [place] [address] [place] [address] 09/18/2025 1:00 PM EST Office Visit [facility] OPTOMETRY [address] [place] [address] Meli Colon, OD [address] [place] [address] documented as of this encounter Visit Diagnoses Not on filedocumented in this encounter Additional Health Concerns Assessment Noted Time PHQ-9 Depression Total Score: 3 04/04/20 1:48 PM EDT documented as of this encounter Care Teams Movie Producer Relationship Specialty Start Date End Date Ju Khan ANP [address] [place] [address] PCP - General Family Medicine 03/20/22 07/27/24 Jennifer Sultana NP [address] [place] [address] PCP - General Family Medicine 07/28/24 Juanito Srinivasan Floral Arranger 05/10/23 Francisco J Palomino Floral ArrangerGelatin Dynamite Packing Operator 05/16/23 Fawad Vargas Floral ArrangerGelatin Dynamite Packing Operator 08/11/24 documented as of this encounter
--- OUTSIDE RECORDS SUMMARY | 2025-07-15 14:09 | XMS_ITS | Encounter Summary ---
Author Organization [employer] Address [address] [place] [address] [address] [place] [address] Care Team Providers Care It Infrastructure Project Manager Name Role Phone Jennifer Sultana NP Primary Care Provider [phone] Reason for Visit * Reason Comments Med Refill Encounter Details Date Type Department Care Team ([facility] Contact Info) Description 04/02/2025 Refill [facility] MEDICINE [address] [place], [place] [phone] Bree Love MD [address] [place], [place] [phone] Spondylosis 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 Social [...] Description 08/03/2025 10:45 AM EST Office Visit [facility] MEDICINE [address] [place] [address] Jennifer Sultana NP [address] [place] [address] 09/18/2025 1:00 PM EST Office Visit [facility] OPTOMETRY [address] [place] [address] Isaiah, Meli, OD [address] [place] [address] documented as of this encounter Visit Diagnoses Diagnosis Spondylosis 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 documented in this encounter Additional Health Concerns Assessment Noted Time PHQ-9 Depression Total Score: 27 024 2:31 PM EST documented as of this encounter Care Teams It Infrastructure Project Manager Relationship Specialty Start Date End Date Jennifer Sultana NP [address] [place] [address] PCP - General Family Medicine 07/28/24 Juanito Srinivasan Taxi Proprietor 05/10/23 Francisco J Palomino Taxi ProprietorFuel Cell Repairer 05/16/23 Fawad Vargas Taxi ProprietorFuel Cell Repairer 08/11/24 documented as of this encounter
--- OUTSIDE RECORDS SUMMARY | 2025-07-15 14:09 | XMS_ITS | Encounter Summary ---
Author Organization [employer] Address [address] [facility] [address] [place] [address] Care Team Providers Care Wrapper Operator Name Role Phone Jennifer Sultana NP Primary Care Provider [phone] Reason for Visit * Reason Comments Med Refill Encounter Details Date Type Department Care Team ([facility] Contact Info) Description 02/19/2025 Refill [facility] MEDICINE [address] [place], [place] [phone] Jennifer Sultana NP [address] [place] [address] Spondylosis 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 Social [...] Description 08/03/2025 10:45 AM EST Office Visit [facility] MEDICINE [address] [place] [address] Jennifer Sultana NP [address] [place] [address] 09/18/2025 1:00 PM EST Office Visit [facility] OPTOMETRY [address] [place] [address] Isaiah, Meli, OD [address] [place] [address] documented as of this encounter Visit Diagnoses Diagnosis Spondylosis 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 documented in this encounter Additional Health Concerns Assessment Noted Time PHQ-9 Depression Total Score: 27 024 2:31 PM EST documented as of this encounter Care Teams Wrapper Operator Relationship Specialty Start Date End Date Jennifer Sultana NP [address] [place] [address] PCP - General Family Medicine 07/28/24 Juanito Srinivasan Nsh Teacher 05/10/23 Francisco J Palomino Nsh TeacherCab Starter 05/16/23 Fawad Vargas Nsh TeacherCab Starter 08/11/24 documented as of this encounter
--- OUTSIDE RECORDS SUMMARY | 2025-07-15 14:09 | XMS_ITS | Encounter Summary ---
Author Organization [employer] Address [address] [place] [address] [address] [place] [address] Care Team Providers Care Trailer Steerer Name Role Phone Ju Khan ANP Primary Care Provider Jennifer Sultana NP Primary Care Provider [phone] Reason for Visit * Reason Comments Med Refill Encounter Details Date Type Department Care Team ([facility] st Contact Info) Description 07/15/2024 Refill [facility] MEDICINE [address] [place], [place] [phone] Ju Khan ANP [address] [place] [address] Multiple joint pain Social History Tobacco Use [...] Description 08/03/2025 10:45 AM EST Office Visit [facility] MEDICINE [address] [place] [address] Jennifer Sultana NP [address] [place] [address] 09/18/2025 1:00 PM EST Office Visit [facility] OPTOMETRY [address] [place] [address] Meli Colon, OD [address] [place] [address] documented as of this encounter Visit Diagnoses Diagnosis Multiple joint pain Pain in joint, multiple sites documented in this encounter Additional Health Concerns Assessment Noted Time PHQ-9 Depression Total Score: 3 04/04/20 24 1:48 PM EDT documented as of this encounter Care Teams Trailer Steerer Relationship Specialty Start Date End Date Ju Khan ANP [address] [place] [address] PCP - General Family Medicine 03/20/22 07/27/24 Jennifer Sultana NP [address] [place] [address] PCP - General Family Medicine 07/28/24 Juanito Srinivasan Landscape Supervisor 05/10/23 Francisco J Palomino Landscape SupervisorMedicaid Collection Specialist 05/16/23 Fawad Vargas Landscape SupervisorMedicaid Collection Specialist 08/11/24 documented as of this encounter
--- OUTSIDE RECORDS SUMMARY | 2025-07-15 14:09 | XMS_ITS | Encounter Summary ---
Demographics Address [address] [facility] [address] [place] [address] Mobile Phone Home Phone Work Phone Email Address Preferred Language en Marital Status Yazidism Affiliation Unknown Race White Ethnic Group Unknown Author Organization [employer] Address [address] [place] [address] 7 [place] [address] Care Team Providers Care Camp Dishwasher Name Role Phone Ju Khan ANP Primary Care Provider [phone] Jennifer Sultana NP Primary Care Provider [phone] Reason for Visit * Reason Onset Date Comments PT1 02/06/2024 Encounter Details Date Type Department Care Team ([facility] Contact Info) Description 02/06/2024 Telephone [facility] 230 [place], [place] [phone] uJ Khan ANP 230 [place], [place] [phone] PT1 Social History Tobacco Use Types Packs/Day [...] Y/N: Yes Provider name or facility name: [facility] Facility Address: [address] [place] [address] Escort needed: Y/N: Yes Do you have [...] Description 08/03/2025 10:45 AM EST Office Visit [facility] [address] [place] [address] Jennifer Sultana NP 230 [place] [address] 09/18/2025 1:00 PM EST Office Visit [facility] [address] [place] [address] Meli Colon, AVELINO 230 [place] [address] documented as of this encounter Visit Diagnoses Not on filedocumented in this encounter Additional Health Concerns Assessment Noted Time PHQ-9 Depression Total Score: 9 12/01/19 23 10:12 AM EDT documented as of this encounter Care Teams Camp Dishwasher Relationship Specialty Start Date End Date Ju Khan ANP [address] [place] [address] PCP - General Family Medicine 03/20/22 07/27/24 Jennifer Sultana NP [address] [place], [place] [phone] PCP - General Family Medicine 07/28/24 Juanito Srinivasan Manager Six Sigma 05/10/23 Francisco J Palomino Manager Six SigmaInspector Water Pollution Control 05/16/23 Fawad Vargas Manager Six SigmaInspector Water Pollution Control 08/11/24 documented as of this encounter
--- OUTSIDE RECORDS SUMMARY | 2025-07-15 14:09 | XMS_ITS | Encounter Summary ---
Author Organization [employer] Address [address] [place] [address] [address], [place] [address] Care Team Providers Care Ict Help Desk Officer Name Role Phone Jennifer Sultana NP Primary Care Provider [phone] Reason for Visit * Reason Onset Date Comments Referral 03/25/2025 Encounter Details Date Type Department Care Team ([facility] Contact Info) Description 03/25/2025 Telephone [facility] [address] [place] [address] Jennifer Sultana NP 230 [place] [address] Referral Social History Tobacco Use Types Packs/Day [...] pt who reports that female specialist at [facility] will not see her until she has completed an MRI of the spine. Pt states she is unsure of specialist's name but was advised to send MRI results to [phone]. Pt agrees to appt with Blue team provider next week as she needs time to arrange transportation. * Telephone Encounter - Dionisio Barragan - 03/25/2025 11:59 AM EDT Tc from pt requesting a referral for the MRI. For the spine. Any questions contact pt at [phone] documented in this encounter Plan of Treatment Upcoming Encounters Date Type Department Care Team (Late st Contact Info) Description 08/03/2025 10:45 AM EST Office Visit [facility] [address] [place] [address] Jennifer Sultana NP [address] [place], [place] [phone] 09/18/2025 1:00 PM EST Office Visit [facility] OPTOMETRY [address] [place] [address] Meli Colon, OD [address] [place] [address] documented as of this encounter Visit Diagnoses Not on filedocumented in this encounter Additional Health Concerns Assessment Noted Time PHQ-9 Depression Total Score: 27 024 2:31 PM EST documented as of this encounter Care Teams Ict Help Desk Officer Relationship Specialty Start Date End Date Jennifer Sultana NP 230 [place] [address] PCP - General Family Medicine 07/28/24 Juanito Srinivasan Solar Installation Technician 05/10/23 Francisco J Palomino Solar Installation TechnicianDatabase Reporting Consultant 05/16/23 Fawad Vargas Solar Installation TechnicianDatabase Reporting Consultant 08/11/24 documented as of this encounter
--- OUTSIDE RECORDS SUMMARY | 2025-07-15 14:09 | XMS_ITS | Encounter Summary ---
Demographics Address [address] [facility] [address] [place] [address] Mobile Phone Home Phone Work Phone Email Address Preferred Language en Marital Status Zoroastrianism Affiliation Unknown Race White Ethnic Group Unknown Author Organization [employer] Address [address] [place] [address] 7t [place] [address] Care Team Providers Care Art Educator Name Role Phone Ju Khan ANP Primary Care Provider [phone] Jennifer Sultana PUNCH PRESS FEEDER Primary Care Provider [phone] Reason for Visit * Reason Onset Date Comments PT-1 02/25/2024 Encounter Details Date Type Department Care Team ([facility] st Contact Info) Description 02/25/2024 Telephone [facility] 230 [place], [place] [phone] Ju Khan ANP 230 [place], [place] [phone] PT-1 Social History Tobacco Use Types Packs/Day [...] Y/N: Yes Provider name or facility name: [facility] Facility Address: [address] [place] [address] Escort needed: Y/N: No Do you have a wheelchair: Y/N: No If yes- Manual or electric: n/a Visits: 1x per week documented in this encounter Plan of Treatment Upcoming Encounters Date Type Department Care Team ([facility] Contact Info) Description 08/03/2025 10:45 AM EST Office Visit [facility] [address] [place] [address] Jennifer Sultana NP [address] [place] [address] 09/18/2025 1:00 PM EST Office Visit [facility] [address] [place] [address] Meli Colon, OD [address] [place] [address] documented as of this encounter Visit Diagnoses Not on filedocumented in this encounter Additional Health Concerns Assessment Noted Time PHQ-9 Depression Total Score: 9 12/01/19 23 10:12 AM EDT documented as of this encounter Care Teams Art Educator Relationship Specialty Start Date End Date Ju Khan ANP 230 [place] [address] PCP - General Family Medicine 03/20/22 07/27/24 Jennifer Sultana NP [address] [place] [address] PCP - General Family Medicine 07/28/24 Juanito Srinivasan Plasterer Spray Gun 05/10/23 Francisco J Palomino Plasterer Spray GunCover Marker 05/16/23 Fawad Vargas Plasterer Spray GunCover Marker 08/11/24 documented as of this encounter
--- OUTSIDE RECORDS SUMMARY | 2025-07-15 14:09 | XMS_ITS | Encounter Summary ---
Author Organization [employer] Address [address] [place] [address] Care Team Providers Care Integration Solution Architect Name Role Phone Ju Khan Primary Care Provider [phone] Jennifer Sultana NP Primary Care Provider [phone] Reason for Referral * Consultation (STAT) - Closed Specialty Diagnoses / Procedures [facility] Referred To Contact Orthopaedic Surgery Diagnoses Other closed fracture of proximal end of right tibia, initial encounter Fry cyst, right Ju Khan ANP 230 [place] [address] Phone: tel: fax: [facility] [address] [place] [address] Phone: tel: Referral ID Status Reason Start Date Expiration Date V isits Requested Visits Authorized [id number] Closed Specialty Services Required 05/05/2024 05/05/2025 3 3 Reason for Visit * Reason Comments Med Refill Encounter Details Date Type Department Care Team (Late st Contact Info) Description 07/03/2024 Refill [facility] [address] [place] [address] Ju Khan ANP [address] [place], [place] [phone] Other closed fracture of proximal end of [...] 08/03/2025 10:45 AM EST Office Visit [facility] [address] [place] [address] Jennifer Sultana NP 230 [place] [address] 09/18/2025 1:00 PM EST Office Visit [facility] OPTOMETRY [address] [place] [address] Meli Colon, OD [address] [place] [address] Scheduled Referrals Name Type Priority Associated Diagnoses [...] documented as of this encounter Care Teams Integration Solution Architect Relationship Specialty Start Date End Date Ju Khan ANP [address] [place] [address] PCP - General Family Medicine 03/20/22 07/27/24 Jennifer Sultana NP [address] [place] [address] PCP - General Family Medicine 07/28/24 Jaunito Srinivasan Cost Accountant 05/10/23 Francisco J Palomino Cost AccountantStonemason Supervisor 05/16/23 Fawad Vargas Cost AccountantStonemason Supervisor 08/11/24 documented as of this encounter
--- OUTSIDE RECORDS SUMMARY | 2025-07-15 14:09 | XMS_ITS | Encounter Summary ---
Author Organization [employer] Address [address] [place] [address] 7 [place] [address] Care Team Providers Care Director Of Undergraduate Admissions Name Role Phone Jennifer Sultana NP Primary Care Provider [phone] Reason for Visit * Reason Onset Date Comments PT1 03/25/2025 Encounter Details Date Type Department Care Team ([facility] Contact Info) Description 03/25/2025 Telephone [facility]INE 230 [place] [address] Jennifer Sultana NP 230 [place] [address] PT1 Social History Tobacco Use Types Packs/Day [...] Y/N: Yes Provider name or facility name: [address] [place] [address] Escort needed: Y/N: Yes Do you have a wheelchair: Y/N: No Visits: (2x) documented in this encounter Plan of Treatment Upcoming Encounters Date Type Department Care Team (Late st Contact Info) Description 08/03/2025 10:45 AM EST Office Visit [facility] MEDICINE [address] [place] [address] Jennifer Sultana NP 230 [place] [address] 09/18/2025 1:00 PM EST Office Visit [facility] OPTOMETRY [address] [place] [address] Meli Colon, OD [address] [place] [address] documented as of this encounter Visit Diagnoses Not on filedocumented in this encounter Additional Health Concerns Assessment Noted Time PHQ-9 Depression Total Score: 27 024 2:31 PM EST documented as of this encounter Care Teams Director Of Undergraduate Admissions Relationship Specialty Start Date End Date Jennifer Sultana NP [address] [place] [address] PCP - General Family Medicine 07/28/24 Juanito Srinivasan Social Sciences Department Chair 05/10/23 Francisco J Palomino Social Sciences Department ChairSalesperson Hearing Aids 05/16/23 Fawad Vargas Social Sciences Department ChairSalesperson Hearing Aids 08/11/24 documented as of this encounter
--- OUTSIDE RECORDS SUMMARY | 2025-07-15 14:10 | XMS_ITS | Encounter Summary ---
Author Organization [employer] Address [address] [facility] 7t [place] [address] Care Team Providers Care Coffee Urn Attendant Name Role Phone Jennifer Sultana NP Primary Care Provider [phone] Encounter Details Date Type Department Care Team ([facility] Contact Info) Description 08/12/2024 Telephone [facility] MED[facility]INE [address] [place], [place] [phone] Jennifer Sultana NP 230 [place] [address] Social History Tobacco Use Types Packs/Day Years [...] Visit [facility] [address] [place] [address] Jennifer Sultana NP [address] [place] [address] 09/18/2025 1:00 PM EST Office Visit [facility] OPTOMETRY [address] [place] [address] Isaiah, Meli, OD 230 [place] [address] documented as of this encounter Visit Diagnoses Not on filedocumented in this encounter Additional Health Concerns Assessment Noted Time PHQ-9 Depression Total Score: 27 024 2:31 PM EST documented as of this encounter Care Teams Coffee Urn Attendant Relationship Specialty Start Date End Date Jennifer Sultana NP [address] [place] [address] PCP - General Family Medicine 07/28/24 Juanito Srinivasan Uniform Force Captain 05/10/23 Francisco J Palomino Uniform Force CaptainTarp Repairer 05/16/23 Fawad Vargas Uniform Force CaptainTarp Repairer 08/11/24 documented as of this encounter
--- OUTSIDE RECORDS SUMMARY | 2025-07-15 14:10 | XMS_ITS | Encounter Summary ---
Author Organization [employer] Address [address] [place] [address] Care Team Providers Care Production Team Leader Name Role Phone Ju Khan Primary Care Provider [phone] Jennifer Sultana NP Primary Care Provider [phone] Reason for Visit * Reason Comments Med Refill Encounter Details Date Type Department Care Team (Late Contact Info) Description 05/23/2023 Refill [facility]INE 230 [place], [place] [phone] Ju Khan ANP 230 [place], [place] [phone] Multiple joint pain Social History Tobacco Use [...] Description 08/03/2025 10:45 AM EST Office Visit [facility] MEDICINE [address] [place] [phone] Jennifer Sultana NP 230 [place] [address] 09/18/2025 1:00 PM EST Office Visit [facility] OPTOMETRY [address] [place], [place] [phone] Meli Colon, OD [address] [place] [address] documented as of this encounter Visit Diagnoses Diagnosis Multiple joint pain Pain in joint, multiple sites documented in this encounter Additional Health Concerns Assessment Noted Time PHQ-9 Depression Total Score: 9 12/01/19 23 10:12 AM EDT documented as of this encounter Care Teams Production Team Leader Relationship Specialty Start Date End Date Ju Khan ANP 230 [place] [address] PCP - General Family Medicine 03/20/22 07/27/24 Jennifer Sultana NP 230 [place] [address] PCP - General Family Medicine 07/28/24 Juanito Srinivasan Research Statistician 05/10/23 Francisco J Palomino Research StatisticianCoil Finisher 05/16/23 Fawad Vargas Research StatisticianCoil Finisher 08/11/24 documented as of this encounter
--- OUTSIDE RECORDS SUMMARY | 2025-07-15 14:10 | XMS_ITS | Encounter Summary ---
Demographics Address [address] [facility] [address] [place] [address] Mobile Phone Home Phone Work Phone Email Address Preferred Language en Marital Status Hinduism Affiliation Unknown Race White Ethnic Group Unknown Author Organization [employer] Address [address] [facility] 7t [place] [address] Care Team Providers Care Stapler Hand Name Role Phone Jennifer Sultana NP Primary Care Provider [phone] Encounter Details Date Type Department Care Team ([facility] Contact Info) Description 07/14/2025 Orders Only [facility] External Provider, [facility] Social History Tobacco Use Types Packs/Day Years [...] is your housing situation today? I have christianodipika cifuentes 03/30/[address] you [...] t he electric, gas, oil or water [employer] threatened to shut off services in your [...] Description 08/03/2025 10:45 AM EST Office Visit [facility] MED[facility]INE 230 [place] [address] Jennifer Sultana, BR[place] [address] [place] [address] 09/18/2025 1:00 PM EST Office Visit [facility] OPTOMETRY [address] [place] [address] Isaiah, Meli, OD [address] [place] [address] documented as of this encounter Procedures Procedure Name Priority Date/Time Associated Diagnosis Comments XR CHEST 1 VIEW Routine 07/14/2025 11:05 PM EST documented in this encounter Results * XR Chest 1 View (07/14/2025 11:05 PM EST) Anatomical Region Laterality Modality Chest Radiographic Jodee ging 07/14/2025 11:0 5 PM EST Narrative 07/14/2025 11:06 PM EST [facility] [address] [place] [address] XRay Report Signed Patient: Cherri Nash MR#: [id number] : 1965 Acct:[id number] Age/Sex: 60 / F ADM Date: 07/14/25 Loc: .ED Attending Dr: Ordering Physician: Mahi Rodrigez PA-C Date of Service: 07/14/25 Procedure(s): XR chest 1V Accession Number(s): [id number] cc: Jennifer Sultana NP; Mahi Rodrigez PA-C Reason for Exam: sob CLINICAL HISTORY: sob 1 view chest x-ray Comparison: CT/REG/NM/SR - CT CHEST WO IV CON - 04/03/23 13:48 EDT Findings: Mild interstitial prominence in both lungs may represent pulmonary vascular congestion. Heart size is normal. No acute fracture. IMPRESSION: Mild interstitial prominence in both lungs may represent pulmonary vascular congestion. This document has been electronically signed by: Kaleb Hager MD on 07/14/2025 23:05:11 Dictated By: Kaleb Hager MD Signed By: <Electronically signed by Kaleb Hager MD in OV> 07/14/252305 DD/ 04 TD/TT: 07/14/252304 Wool Fleece Sorter: Procedure Note Donotuseinterpreter, Image - 07/14/[address] [address] XRay Report Signed Patient: Cherri Nash JMR#: [id number] : 1965Acct:[id number] Age/Sex: 60 / FADM Date: 07/14/25 Loc: .ED Attending Dr: Ordering Physician: Mahi Rodrigez PA-C Date of Service: 07/14/25 Procedure(s): XR chest 1V Accession Number(s): [id number] cc: Jennifer Sultana NP; Mahi Rodrigez PA-C Reason for Exam: sob CLINICAL HISTORY: sob 1 view chest x-ray Comparison: CT/REG/NM/SR - CT CHEST WO IV CON - 04/03/23 13:48 EDT Findings: Mild interstitial prominence in both lungs may represent pulmonary vascular congestion. Heart size is normal. No acute fracture. IMPRESSION: Mild interstitial prominence in both lungs may represent pulmonary vascular congestion. This document has been electronically signed by: Kaleb Hager MD on 07/14/2025 23:05:11 Dictated By: Kaleb Hager MD Signed By: <Electronically signed by Kaleb Hager MD in OV> 07/14/252305 DD/ 04 TD/TT: 07/14/252304 Wool Fleece Sorter: [facility] External Provider IMG XR PROCEDURES Edited Result - Final documented in this encounter Visit Diagnoses Not on filedocumented in this encounter Additional Health Concerns Assessment Noted Time PHQ-9 Depression Total Score: 27 024 2:31 PM EST documented as of this encounter Care Teams Stapler Hand Relationship Specialty Start Date End Date Jennifer Sultana NP [address] [place] [address] PCP - General Family Medicine 07/28/24 Juanito Srinivasan Leveling Machine Operator 05/10/23 Francisco J Palomino Leveling Machine OperatorSeed Specialist 05/16/23 Fawad Vargas Leveling Machine OperatorSeed Specialist 08/11/24 documented as of this encounter
--- OUTSIDE RECORDS SUMMARY | 2025-07-15 14:10 | XMS_ITS | Encounter Summary ---
Demographics Address [address] [facility] [address] [place] [address] Mobile Phone Home Phone Work Phone Email Address Preferred Language en Marital Status Bahai Affiliation Unknown Race White Ethnic Group Unknown Author Organization [employer] Address [address] [place] [address] 7 [place] [address] Care Team Providers Care Warehouse Traffic Supervisor Name Role Phone Ju Khan ANP Primary Care Provider Jennifer Sultana NP Primary Care Provider [phone] Reason for Visit * Reason Onset Date Comments PT1 06/15/2023 Encounter Details Date Type Department Care Team ([facility] Contact Info) Description 06/15/2023 Telephone [facility] MEDICINE [address] [place] [address] Ju Khan ANP 230 [place], [place] [phone] PT1 Social History Tobacco Use Types Packs/Day [...] 06/27/2023 Time: 2:45 Visits: 2 monthly Address: [address] [place] [address] Facility: [facility] Wheel Chair: no/cane Ug Designer Needed: no & Date: 07/17/2023 Time: 2:00 Visits: 3 monthly Address: [address] [place] [address] Facility: [facility] Wheel Chair: no/cane Ug Designer Needed: no documented in this encounter Plan of Treatment Upcoming Encounters Date Type Department Care Team ([facility] st Contact Info) Description 08/03/2025 10:45 AM EST Office Visit [facility] MEDICINE [address] [place] [address] Jennifer Sultana NP 230 [place] [address] 09/18/2025 1:00 PM EST Office Visit [facility] OPTOMETRY [address] [place] [address] Isaiah, Meli, OD [address] [place] [address] documented as of this encounter Visit Diagnoses Not on filedocumented in this encounter Additional Health Concerns Assessment Noted Time PHQ-9 Depression Total Score: 9 12/01/19 23 10:12 AM EDT documented as of this encounter Care Teams Warehouse Traffic Supervisor Relationship Specialty Start Date End Date Ju Khan ANP [address] [place] [address] PCP - General Family Medicine 03/20/22 07/27/24 Jennifer Sultana NP [address] [place] [address] PCP - General Family Medicine 07/28/24 Juanito Srinivasan Radio Host 05/10/23 Francisco J Palomino Radio HostInserting Operator 05/16/23 Fawad Vargas Radio HostInserting Operator 08/11/24 documented as of this encounter
--- OUTSIDE RECORDS SUMMARY | 2025-07-15 14:10 | XMS_ITS | Encounter Summary ---
Demographics Address [address] [facility] [address] [place] [address] Mobile Phone Home Phone Work Phone Email Address Preferred Language en Marital Status Religion Affiliation Unknown Race White Ethnic Group Unknown Author Organization [employer] Address [address] [place] [address] 7 [place] [address] Care Team Providers Care Enterprise Systems Engineer Name Role Phone Ju Khan ANP Primary Care Provider [phone] Jennifer Sultana NP Primary Care Provider [phone] Reason for Visit * Reason Onset Date Comments PT1 06/18/2023 Encounter Details Date Type Department Care Team ([facility] Contact Info) Description 06/18/2023 Telephone [facility] MEDICINE 230 [place], [place] [phone] Ju Khan ANP 230 [place], [place] [phone] PT1 Social History Tobacco Use Types Packs/Day [...] PM EDT PT1 Name of facility: [facility] Specialty: Follow up with PCP Location: [address] [place] [address] Date: 07/02/2023 Time: 3:00 pm fax: [phone] wheelchair: NO Business Analytics Faculty Member: NO Visits: Pt states for all future appts documented in this encounter Plan of Treatment Upcoming Encounters Date Type Department Care Team (Late st Contact Info) Description 08/03/2025 10:45 AM EST Office Visit [facility] MEDICINE [address] [place] [address] Jennifer Sultana NP [address] [place] [address] 09/18/2025 1:00 PM EST Office Visit [facility] OPTOMETRY [address] [place] [address] Meli Colon OD [address] [place] [address] documented as of this encounter Visit Diagnoses Not on filedocumented in this encounter Additional Health Concerns Assessment Noted Time PHQ-9 Depression Total Score: 9 12/01/19 23 10:12 AM EDT documented as of this encounter Care Teams Enterprise Systems Engineer Relationship Specialty Start Date End Date Ju Khan ANP [address] [place] [address] PCP - General Family Medicine 03/20/22 07/27/24 Jennifer Sultana NP [address] [place], [place] [phone] PCP - General Family Medicine 07/28/24 Juanito Srinivasan Irrigation Equipment Installer 05/10/23 Francisco J Palomino Irrigation Equipment InstallerBusiness Trainer 05/16/23 Fawad Vargas Irrigation Equipment InstallerBusiness Trainer 08/11/24 documented as of this encounter
--- OUTSIDE RECORDS SUMMARY | 2025-07-15 14:10 | XMS_ITS | Encounter Summary ---
Author Organization [employer] Address [address] [place] [address] [address] [address] Care Team Providers Care Rag Washer Name Role Phone Ju Khan ANP Primary Care Provider [phone] Jennifer Sultana DIRECTOR OF INSTITUTIONAL GIVING Primary Care Provider [phone] Reason for Visit * Reason Onset Date Comments PT1 03/09/2023 Encounter Details Date Type Department Care Team ([facility] Contact Info) Description 03/09/2023 Telephone [facility] MEDICINE [address] [place] [address] Ju Khan ANP 230 [place], [place] [phone] PT1 Social History Tobacco Use Types Packs/Day [...] PT1 initiated for PSS[facility] in [facility] will send pt a letter with instructions * Telephone Encounter - Lupis Cano - 03/09/2023 1:13 PM EDT Tc from pt requesting a PT1 PT1 Date: TBD Time: TBD Address: [address] [place] [address] Specialty: radiculopathy Facility: [facility] Pickling Grader: no Wheelchair: no, cane documented in this encounter Plan of Treatment Upcoming Encounters Date Type Department Care Team (Late st Contact Info) Description 08/03/2025 10:45 AM EST Office Visit [facility] MEDICINE [address] [place] [address] Jennifer Sultana NP [address] [place] [address] 09/18/2025 1:00 PM EST Office Visit [facility] OPTOMETRY [address] [place] [address] Isaiah, Meli, OD [address] [place] [address] documented as of this encounter Visit Diagnoses Not on filedocumented in this encounter Additional Health Concerns Assessment Noted Time PHQ-9 Depression Total Score: 9 12/01/19 23 10:12 AM EDT documented as of this encounter Care Teams Rag Washer Relationship Specialty Start Date End Date Ju Khan ANP 230 [place] [address] PCP - General Family Medicine 03/20/22 07/27/24 Jennifer Sultana NP [address] [place] [address] PCP - General Family Medicine 07/28/24 Juanito Srinivasan Moving Consultant 05/10/23 Francisco J Palomino Moving ConsultantMedical Fee Clerk 05/16/23 Fawad Vargas Moving ConsultantMedical Fee Clerk 08/11/24 documented as of this encounter
--- OUTSIDE RECORDS SUMMARY | 2025-07-15 14:10 | XMS_ITS | Encounter Summary ---
Author Organization [employer] Address [address] [facility] [address] [place] [address] Care Team Providers Care Corporate Event Planner Name Role Phone Jennifer Sultana NP Primary Care Provider [phone] Encounter Details Date Type Department Care Team ([facility] Contact Info) Description 07/13/2025 Refill [facility] MEDICINE 230 [place], [place] [phone] Jennifer Sultana NP 230 [place] [address] Social History Tobacco Use Types Packs/Day Years [...] Description 08/03/2025 10:45 AM EST Office Visit [facility] MEDICINE 230 [place] [address] Jennifer Sultana NP [address] [place] [address] 09/18/2025 1:00 PM EST Office Visit [facility] OPTOMETRY [address] [place] [address] Isaiah, Meli, OD 230 [place] [address] documented as of this encounter Visit Diagnoses Not on filedocumented in this encounter Additional Health Concerns Assessment Noted Time PHQ-9 Depression Total Score: 27 024 2:31 PM EST documented as of this encounter Care Teams Corporate Event Planner Relationship Specialty Start Date End Date Jennifer Sultana NP [address] [place] [address] PCP - General Family Medicine 07/28/24 Juanito Srinivasan Can Worker 05/10/23 Francisco J Palomino Can WorkerStrike Plate Attacher 05/16/23 Fawad Vargas Can WorkerStrike Plate Attacher 08/11/24 documented as of this encounter
--- OUTSIDE RECORDS SUMMARY | 2025-07-15 14:10 | XMS_ITS | Encounter Summary ---
Author Organization [employer] Address [address] [place] [address] 7 [place] [address] Care Team Providers Care Cell Assembly Pinner Name Role Phone Jennifer Sultana NP Primary Care Provider [phone] Reason for Visit * Reason Onset Date Comments Reschedule 08/22/2024 Encounter Details Date Type Department Care Team ([facility] Contact Info) Description 08/22/2024 Telephone [facility] MEDICINE [address] [place] [address] Jennifer Sultana NP 230 [place] [address] Reschedule Social History Tobacco Use Types Packs/Day [...] EST Office Visit [facility] MEDICINE [address] [place] [address] Jennifer Sultana NP [address] [place] [address] 09/18/2025 1:00 PM EST Office Visit [facility] OPTOMETRY [address] [place], [place] [phone] Meli Colon OD [address] [place] [address] documented as of this encounter Visit Diagnoses Not on filedocumented in this encounter Additional Health Concerns Assessment Noted Time PHQ-9 Depression Total Score: 27 024 2:31 PM EST documented as of this encounter Care Teams Cell Assembly Pinner Relationship Specialty Start Date End Date Jennifer Sultana NP [address] [place] [address] PCP - General Family Medicine 07/28/24 Juanito Srinivasan Account Manager Relief 05/10/23 Francisco J Palomino Account Manager ReliefManager Process 05/16/23 Fawad Vargas Account Manager ReliefManager Process 08/11/24 documented as of this encounter
--- OUTSIDE RECORDS SUMMARY | 2025-07-15 14:10 | XMS_ITS | Encounter Summary ---
Author Organization [employer] Address [address] [facility] 7[address] [place] [address] Care Team Providers Care Outbound Telemarketing Representative Name Role Phone Jennifer Sultana NP Primary Care Provider Reason for Visit * Reason Comments Med Refill Encounter Details Date Type Department Care Team ([facility] Contact Info) Description 07/10/2025 Refill [facility] MEDICINE [address] [place], [place] [phone] Jennifer Sultana NP [address] [place] [address] Spondylosis 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; Mixed hyperlipidemia Social History Tobacco Use Types Packs/Day Years [...] 10:45 AM EST Office Visit [facility] MEDICINE [address] [place] [address] Jennifer Sultana NP [address] [place] [address] 09/18/2025 1:00 PM EST Office Visit [facility] OPTOMETRY [address] [place] [address] Isaiah, Meli, OD [address] [place] [address] documented as of this encounter Visit Diagnoses Diagnosis Spondylosis 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 Mixed hyperlipidemia documented in this encounter Additional Health Concerns Assessment Noted Time PHQ-9 Depression Total Score: 27 024 2:31 PM EST documented as of this encounter Care Teams Outbound Telemarketing Representative Relationship Specialty Start Date End Date Jennifer Sultana NP [address] [place] [address] PCP - General Family Medicine 07/28/24 Juanito Srinivasan Terrazzo Polisher 05/10/23 Francisco J Palomino Terrazzo PolisherDiversified Crops Farmer 05/16/23 Fawad Vargas Terrazzo PolisherDiversified Crops Farmer 08/11/24 documented as of this encounter
--- OUTSIDE RECORDS SUMMARY | 2025-07-15 14:10 | XMS_ITS | Encounter Summary ---
Demographics Address [address] [facility] [address] [place] [address] Mobile Phone Home Phone Work Phone Email Address Preferred Language en Marital Status Sikh Affiliation Unknown Race White Ethnic Group Unknown Author Organization [employer] Address [address] [place] [address] 7 [place] [address] Care Team Providers Care Sql Tech Name Role Phone Ju Khan ANP Primary Care Provider [phone] Jennifer Sultana GARDEN CENTER MANAGER Primary Care Provider [phone] Reason for Visit * Reason Onset Date Comments Referral 06/19/2023 Encounter Details Date Type Department Care Team ([facility] Contact Info) Description 06/19/2023 Telephone [facility] MEDICINE [address] [place], [place] [phone] Ju Khan ANP [address] [place], [place] [phone] Referral Social History Tobacco Use Types Packs/Day [...] from pt requesting a new location for design consultant referral. Any questions, contact pt at [phone] documented in this encounter Plan of Treatment Upcoming Encounters Date Type Department Care Team (Late st Contact Info) Description 08/03/2025 10:45 AM EST Office Visit [facility] MEDICINE [address] [place] [address] Jennifer Sultana NP [address] [place] [address] 09/18/2025 1:00 PM EST Office Visit [facility] OPTOMETRY [address] [place] [address] Isaiah, Meli, OD [address] [place] [address] documented as of this encounter Visit Diagnoses Not on filedocumented in this encounter Additional Health Concerns Assessment Noted Time PHQ-9 Depression Total Score: 9 12/01/19 23 10:12 AM EDT documented as of this encounter Care Teams Sql Tech Relationship Specialty Start Date End Date Ju Khan ANP 230 [place] [address] PCP - General Family Medicine 03/20/22 07/27/24 Jennifer Sultana NP [address] [place] [address] PCP - General Family Medicine 07/28/24 Juanito Srinivasan Fiber Analyst 05/10/23 Francisco J Palomino Fiber AnalystUpper Cutter Out 05/16/23 Fawad Vargas Fiber AnalystUpper Cutter Out 08/11/24 documented as of this encounter
--- OUTSIDE RECORDS SUMMARY | 2025-07-15 14:10 | XMS_ITS | Encounter Summary ---
Demographics Address [address] [facility] [address] [place] [address] Mobile Phone Home Phone Work Phone Email Address Preferred Language en Marital Status Yazidism Affiliation Unknown Race White Ethnic Group Unknown Author Organization [employer] Address [address] [place] [address] 7 [place] [address] Care Team Providers Care Ordained Minister Name Role Phone Ju Khan ANP Primary Care Provider [phone] Jennifer Sultana NP Primary Care Provider [phone] Reason for Visit * Reason Onset Date Comments PT1 06/19/2023 Encounter Details Date Type Department Care Team ([facility] Contact Info) Description 06/19/2023 Telephone [facility] MEDICINE [address] [place], [place] [phone] Ju Khan ANP 230 [place], [place] [phone] PT1 Social History Tobacco Use Types Packs/Day [...] / denial letter via mail. PT-1 Request [id number] Authorized - [address] [address] Wrote called and spoke with pt regarding PT1. [facility] PT1 is good through October 2023 & [facility] is good through 01/2024. Pt just needed [facility] * Telephone Encounter - Lupis Cano - 06/19/2023 2:15 PM EDT Tc from pt requesting PT1 renewal Date: n/a Time: n/a Visits: n/a Address: [address] [place] [address] willi [place] Facility: [facility] Wheel Chair: no, cane Interventional Tech Needed: no Date: 07/04 Time: 12 PM Visits: n/a Address: [address] [place] [address] Willi Wilson [place] Facility: [facility] Wheel Chair: no, cane Interventional Tech Needed: no documented in this encounter Plan of Treatment Upcoming Encounters Date Type Department Care Team (Late st Contact Info) Description 08/03/2025 10:45 AM EST Office Visit [facility] MEDICINE [address] [place] [address] Jennifer Sultana NP [address] [place] [address] 09/18/2025 1:00 PM EST Office Visit [facility] OPTOMETRY [address] [place], [place] [phone] Isaiah, Meli, OD [address] [place] [address] documented as of this encounter Visit Diagnoses Not on filedocumented in this encounter Additional Health Concerns Assessment Noted Time PHQ-9 Depression Total Score: 9 12/01/19 23 10:12 AM EDT documented as of this encounter Care Teams Ordained Minister Relationship Specialty Start Date End Date Ju Khan ANP [address] [place], [place] [phone] PCP - General Family Medicine 03/20/22 07/27/24 Jennifer Sultana NP [address] [place], [place] [phone] PCP - General Family Medicine 07/28/24 Juanito Srinivasan T Rail Turner 05/10/23 Francisco J Palomino T Rail TurnerSupervisor Powder And Primer Canning 05/16/23 Fawad Vargas T Rail TurnerSupervisor Powder And Primer Canning 08/11/24 documented as of this encounter
--- OUTSIDE RECORDS SUMMARY | 2025-07-15 14:10 | XMS_ITS | Encounter Summary ---
Author Organization [employer] Address [address] [place] [address] 7[place] [address] Care Team Providers Care Giving Officer Name Role Phone Ju Khan ANP Primary Care Provider [phone] Jennifer Sultana PROVISIONING SPECIALIST Primary Care Provider [phone] Reason for Visit * Reason Onset Date Comments Med Refill 03/22/2023 Encounter Details Date Type Department Care Team ([facility] st Contact Info) Description 03/22/2023 Telephone [facility] MEDICINE [address] [place], [place] [phone] Ju Khan ANP 230 [place], [place] [phone] Med Refill Social History Tobacco Use Types [...] Description 08/03/2025 10:45 AM EST Office Visit [facility] MEDICINE [address] [place] [address] Jennifer Sultana NP [address] [place] [address] 09/18/2025 1:00 PM EST Office Visit [facility] OPTOMETRY [address] [place] [address] Meli Colon, OD [address] [place] [address] documented as of this encounter Visit Diagnoses Not on filedocumented in this encounter Additional Health Concerns Assessment Noted Time PHQ-9 Depression Total Score: 9 12/01/19 23 10:12 AM EDT documented as of this encounter Care Teams Giving Officer Relationship Specialty Start Date End Date Ju Khan ANP [address] [place] [address] PCP - General Family Medicine 03/20/22 07/27/24 Jennifer Sultana NP [address] [place] [address] PCP - General Family Medicine 07/28/24 Juanito Srinivasan Real Estate Appraiser 05/10/23 Francisco J Palomino Real Estate AppraiserClinical Athletic Instructor 05/16/23 Fawad Vargas Real Estate AppraiserClinical Athletic Instructor 08/11/24 documented as of this encounter
--- OUTSIDE RECORDS SUMMARY | 2025-07-15 14:10 | XMS_ITS | Encounter Summary ---
Author Organization [employer] Address [address] [place] [address] 7t [place] [address] Care Team Providers Care Dioramist Name Role Phone Jennifer Sultana NP Primary Care Provider [phone] Reason for Visit * Reason Comments Med Refill Encounter Details Date Type Department Care Team ([facility] Contact Info) Description 08/10/2024 Refill [facility] MEDICINE 230 [place], [place] [phone] Ju Khan, ANP [address] [place] [address] Spondylosis 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 Social [...] Description 08/03/2025 10:45 AM EST Office Visit [facility] MEDICINE [address] [place] [address] Jennifer Sultana NP [address] [place] [address] 09/18/2025 1:00 PM EST Office Visit [facility] OPTOMETRY [address] [place] [address] Isaiah, Meli, OD [address] [place] [address] documented as of this encounter Visit Diagnoses Diagnosis Spondylosis 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 documented in this encounter Additional Health Concerns Assessment Noted Time PHQ-9 Depression Total Score: 27 024 2:31 PM EST documented as of this encounter Care Teams Dioramist Relationship Specialty Start Date End Date Jennifer Sultana NP [address] [place] [address] PCP - General Family Medicine 07/28/24 Juanito Srinivasan Christian Counselor 05/10/23 Francisco J Palomino Christian CounselorRiver Pilot 05/16/23 Fawad Vargas Christian CounselorRiver Pilot 08/11/24 documented as of this encounter
--- OUTSIDE RECORDS SUMMARY | 2025-07-15 14:11 | XMS_ITS | Clinical Summary ---
Author Organization [employer] Address [address] [place] [address] 7 [place] [address] Care Team Providers Care Strip Picker Name Role Phone Jennifer Sultana NP Primary Care Provider [phone] Allergies Active Allergy Reactions Criticality Noted Date Comments Amoxicillin Unknown 05/02/2016 Aspirin 05/02/2016 Stomach pain [...] FOR PAIN 30 tablet 1 024 Active dicyclomine (Bentyl) 20 MG tablet TAKE 1 TABLET BY MOUTH THREE TIMES DAILY NEEDED FOR ABDOMINAL PAIN Active Colloidal Oatmeal 1 % lotionIndications :Generalized pruritus Apply as needed to affected areas for itching, dry skin 296 mL 11 024 Active Asmanex HFA 200 MCG/ACT aerosol Inhale 2 puffs 2 times daily. 024 Active polyethylene glycol, PEG, 3350 (Miralax) 17 g packet Mix 1 packet in 8 ounces of water, juice, coffee or tea and drink once a day NEEDED FOR CONSTIPATION Active fluticasone (Flonase) 50 MCG/ACT nasal sprayIndications: Chronic rhinitis USE 1 SPRAY IN EACH NOSTRIL IN THE MORNING 48 g 024 Active famotidine (Pepcid) 20 MG tabletIndications :Stage 3a chronic kidney disease (CMS/HCC) ([facility]) Take 1 tablet (20 mg) by mouth Once per day. 30 tablet 11 024 2024 Active metoprolol tartrate (Lopressor) 25 MG tablet TAKE 1/2 TABLET BY MOUTH TWICE DAILY IN THE MORNING AND EVENING 90 tablet 3 024 Active Fiber-Lax 625 MG tablet TAKE 1 TABLET BY MOUTH EVERY MORNING 90 tablet 3 Active docusate sodium (Colace) 100 MG capsule [...] BY MOUTH EVERY EVENING 90 capsule Active folic acid (Folvite) 1 MG tablet TAKE 1 TABLET BY MOUTH EVERY MORNING 90 tablet 1 025 Active ipratropium-albut nitesh (Duo-Neb) 0.5-2.5 mg/3 mL nebulizer solution Take 3 mL by nebulization every 6 (six) hours. 180 mL 11 07/08/20 25 12:01 PM EST 2025 Active Nebulizer misc 1 kit Every 4-6 hours as needed (wheezing/SOB). 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 90 tablet 1 Active furosemide (Lasix) 20 MG tablet Take 20 mg by mouth in the morning. 024 2024 Discontinued(R eorder (will not trigger notification to Pharmacy)) ipratropium-albut nitesh (Duo-Neb) 0.5-2.5 mg/3 mL nebulizer solution Take 3 mL by nebulization every 6 (six) hours if needed for wheezing or shortness of breath. 2024 Discontinued(D uplicate order (will not trigger notification to Pharmacy)) folic acid (Folvite) 1 MG tablet TAKE 1 TABLET BY MOUTH EVERY MORNING 90 tablet 1 025 2024 Discontinued rosuvastatin (Crestor) 10 MG tabletIndications :Mixed hyperlipidemia TAKE 1 TABLET BY MOUTH EVERY MORNING 90 tablet 1 025 2024 Discontinued pregabalin (Lyrica) 75 MG capsuleIndication s:Spondylosis 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 TAKE 1 CAPSULE BY MOUTH THREE TIMES DAILY IN THE MORNING, EVENING, AND BEDTIME 90 capsule 025 2024 Discontinued(R eorder (will not trigger notification to Pharmacy)) pregabalin (Lyrica) 75 MG capsuleIndication s:Spondylosis 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 Take 1 capsule (75 mg) by mouth 3 times daily. 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 04/0 01/2023 Encounters Date Type Department Care Team Description 07/14/2025 Orders Only [facility] External Provider, [facility] 07/13/2025 Refill [facility] [address] [place] [address] Jennifer Sultana NP 07/10/2025 Refill [facility] [address] [place] [address] Jennifer Sultnaa NP Spondylosis 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; Mixed hyperlipidemia 07/08/2025 10:40 AM EST Office Visit [facility] [address] [place] [address] Name, MD Dionisio COPD exacerbation (CMS/HCC) (HCC) (Primary Dx); Cough in adult patient 07/08/2025 Travel 06/28/2025 Refill [facility] [address] [place] [address] Jennifer Sultana NP 06/16/2025 Refill [facility] [address] [place] [address] Jennifer Sultana NP Spondylosis 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 06/10/[address] [address] Jennifer Sultana NP Referral 06/03/[address] [address] Jennifer Sultana NP Durable Medical Equipment 05/31/2025 Refill [facility] [address] [place] [address] Jennifer Sultana NP 05/25/2025 Patient Outreach [facility] [address] [place] [address] Jennifer Sultana NP Pre-visit Planning (SDOH unable to reach LVM ) 05/08/2025 Patient Outreach [facility] [address] [place] [address] Jennifer Sultana NP Pre-visit Planning (SDOH unable to reach LVM) 05/08/2025 Telephone [facility] [address] [place] [address] Jennifer Sultana NP Chart Prep 05/07/[address] [address] Jennifer Sultana NP Med Refill 05/05/2025 Refill [facility] [address] [place] [phone] Jennifer Sultana NP Spondylosis 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 04/28/[address] [address] Jennifer Sultana NP Error (VOID this visit) 04/20/2025 Refill [facility] [address] [place] [phone] Graef, Jennifer, MILL MACHINIST Gastroesophageal reflux disease, unspecified whether esophagitis present 04/16/2025 Telephone [facility] [address] [place], [place] [phone] Jennifer Sultana NP Referral from Last 3 Months Immunizations Immunization Administration [...] Sign Reading Time Taken Comments Blood Pressure 103/65 07/08/2025 10:32 AM EST Pulse 80 07/08/2025 10:32 AM EST Temperature 37.6 C (99.6 F) 07/08/2025 10:32 AM EST Respiratory Rate 18 07/08/2025 10:32 AM EST Oxygen Saturation 94% 07/08/2025 10:32 AM EST Inhaled Oxygen Concentration - - Weight 83.6 kg (184 lb 6.4 oz) 07/08/2025 10:32 AM EST Height 162.6 cm (5' 4 ) 07/08/2025 10:32 AM EST Body Mass Index 31.65 07/08/2025 10:32 AM EST Plan of Treatment Upcoming Encounters Date Type Department Care Team (Late st Contact Info) Description 08/03/2025 10:45 AM EST Office Visit [facility] [address] [place] [address] Jennifer Sultana NP [address] [place] [address] 09/18/2025 1:00 PM EST Office Visit [facility] [address] [place] [address] Meli Colon, OD [address] [place] [address] Health Maintenance Due Date Last Done Comments CT Colonography 1965 FIT DNA/Cologuard 1967 FIT 1965 FOBT 1965 Sigmoidoscopy 1965 Hepatitis A Vaccines (1 of 2 - Risk 2-dose series) 1986 Hepatitis B Vaccines (1 of 3 - 19+ 3-dose series) 1986 Pap Smear 02/11/1988 RSV Patients and Patients Aged 60 years or older (1 - Risk 50-74 years 1-dose series) 2017 Colonoscopy 04/12/2021 04/12/2018 Colorectal Cancer Screening 04/12/2021 Cervical Cancer Screening 10/25/2021 HPV/Cotest 10/25/2021 10/25/2016 Depression Monitoring 01/26/2025 07/28/2024, 024 COVID-19 Vaccine ( season) 2025 07/28/2024, 12/18/2022, 01/28/2021 Influenza Vaccine (#1) 2025 , 07/02/2023, 11/11/2020, Additional history exists Mammogram 06/30/2025 06/30/2024, 05/28, 04/04/2023, Additional history exists Alcohol/Substance Use Screening 07/28/2025 07/28/2024 SDOH Screening 03/30/2026 03/30/2025 Disability Screening 04/10/2026 04/10/2025 Tobacco Screening 04/10/2026 04/10/2025 DTaP/Tdap/Td Vaccines (2 - Td or Tdap) 10/25/2026 10/25/2016, 03/04/2010 Lipid Panel 05/02/2029 05/02/2024, 0603/2023, 05/08/2022, Additional history exists Zoster Vaccines Completed 09/22/2019, 06/23/2019 HIV Screening Completed 05/08/2022 Pneumococcal Vaccine: 50+ Years Completed 12/18/2022, 06/23/2019, 02/09/2017, Additional history exists HIB Vaccines Aged Out [...] 1 VIEW Routine 07/14/2025 11:05 PM EST ECG 12-LEAD Routine 07/08/2025 11:10 AM EST COPD exacerbation (CMS/HCC) (HCC) POC PARRA ID NOW STREP A Routine 07/08/2025 10:48 AM EST Cough in adult patient POCT INFLUENZA B (ID NOW RAPID MOLECULAR) Routine 07/08/2025 10:48 AM EST Cough in adult patient POCT INFLUENZA A (ID NOW RAPID MOLECULAR) Routine 07/08/2025 10:48 AM EST Cough in adult patient POCT RAPID COVID ANTIGEN Routine 07/08/2025 10:48 AM EST Cough in adult patient BI MAMMOGRAM SCREENING TOMOSYNTHESIS BILATERAL Routine 06/19/2024 1:23 PM EDT LIPID PANEL, STANDARD Routine 05/02/2024 2:55 PM EDT HIV 1/2 ANTIGEN/ANTIBODY, FOURTH GENERATION W/RFL Routine 05/08/2022 2:27 PM EDT HM COLONOSCOPY Routine 04/12/2018 ZZZ HISTORICAL HPV MRNA E6/E7 Routine 10/25/2016 9:30 AM EST from Last 3 Months or Most Recently Relevant to Health Maintenance Results * XR Chest 1 View (07/14/2025 11:05 PM EST) Anatomical Region Laterality Modality Chest Radiographic Jodee ging 07/14/2025 11:0 5 PM EST Narrative 07/14/2025 11:06 PM EST [address] [address] XRay Report Signed Patient: Cherri Nash MR#: [id number] : 1965 Acct:[id number] Age/Sex: 60 / F ADM Date: 07/14/25 Loc: HO.ED Attending Dr: Ordering Physician: Mahi Rodrigez PA-C Date of Service: 07/14/25 Procedure(s): XR chest 1V Accession Number(s): [id number] cc: Jennifer Sultana MILL MACHINIST; Mahi Rodrigez PA-C Reason for Exam: sob CLINICAL HISTORY: sob 1 view chest x-ray Comparison: CT/REG/NH/SR - CT CHEST WO IV CON - [...] in OV> 07/14/252305 DD/ 04 TD/TT: 07/14/252304 Bilingual Call Center Representative: Procedure Note Donotuseinterpreter, Image - 07/14/[address] [address] XRay Report Signed Patient: Cherri Nash JMR#: [id number] : 1965Acct:[id number] Age/Sex: 60 / FADM Date: 07/14/25 Loc: HO.ED Attending Dr: Ordering Physician: Mahi Rodrigez PA-C Date of Service: 07/14/25 Procedure(s): XR chest 1V Accession Number(s): [id number] cc: Jennifer Sultana MILL MACHINIST; Mahi Rodrigez PA-C Reason for Exam: sob CLINICAL HISTORY: sob 1 view chest x-ray Comparison: CT/REG/NH/SR - CT CHEST WO IV CON - [...] in OV> 07/14/252305 DD/ 04 TD/TT: 07/14/252304 Bilingual Call Center Representative: [facility] External Provider IMG XR PROCEDURES Edited Result - Final * ECG 12 lead (07/08/2025 11:10 AM EST) Narrative Name, MD Dionisio - 07/08/2025 11:10 AM EST NSR, HR of 71, No ST-T changes Dionisio Funes MD ECG ORDERABLES Final Result * POCT Rapid Influenza B PARRA ID NOW (07/08/2025 10:48 AM EST) Influenza B Negative Negative, Indeterminate [facility] QC Media Lot # [id number] [facility] Lot# Expiration Date [facility] Swab 07/08/2025 10:4 8 AM EST Dionisio Funes MD POINT OF CARE TEST ENTER/EDIT OR DERABLES Final Result [facility] [address] [place] [phone] * POCT Rapid Influenza A PARRA ID NOW (07/08/2025 10:48 AM EST) Pathologist [facility] Influenza A Negative Negative, Indeterminate [facility] QC Media Lot # [id number] [facility] Lot# Expiration Date [facility] Swab 07/08/2025 10:4 8 AM EST Dionisio Name POINT OF CARE TEST ENTER/EDIT OR DERABLES Final Result Performing Organization Address City/[facility]/ZIP Co de Phone Number [facility] [address] [place] [address] [phone] * POCT Rapid Strep A PARRA ID NOW (07/08/2025 10:48 AM EST) [facility] Rapid Strep A Screen Negative Negative, None Detected QC Media Lot # [id number] Lot# Expiration Date Swab 07/08/2025 10:4 8 AM EST Dionisio Name POINT OF CARE TEST ENTER/EDIT OR DERABLES Final Result * POCT Rapid Covid-19 BinaxNOW (07/08/2025 10:48 AM EST) [facility] Rapid COVID Ag Negative [facility] QC Media Lot # [id number] [facility] Lot# Expiration Date [phone] [facility] Swab 07/08/2025 10:4 8 AM EST Dionisio Name POINT OF CARE TEST ENTER/EDIT OR DERABLES Final Result Performing Organization Address City/[facility]/ZIP Co de Phone Number [facility] [address] [place] [address] [phone] * BI Mammogram Screening Tomosynthesis Bilateral (06/19/2024 1:23 PM EDT) Anatomical Region Laterality Modality Breast Bilateral Mammography 06/19/2024 1:23 PM EDT Narrative 06/28/2024 10:33 AM EDT [address] [place] [address] Mammography Report Signed Patient: Cherri Nash MR#: [id number] : 1965 Acct:[id number] Age/Sex: 59 / F ADM Date: 06/19/24 Loc: HO.MAMMO Attending Dr: Manolo Garcia NP Ordering Physician: MANOLO GARCIA NP Results: 1Negative Date of Service: 06/19/24 Follow Up: 1 Year From Orig inal Mammogram Procedure(s): MM tomosynthesis screening BI Accession Number(s): [id number] cc: MANOLO GARCIA NP EXAMINATION: MM SCREENING [...] 06/28/24 1030 DD/ 1323 TD/TT: 06/19/24 1336 Bilingual Call Center Representative: Procedure Note Lisainterpreter, Image - 06/28/[address] [place] [address] Mammography Report Signed Patient: Cherri Nash JMR#: [id number] : 1965Acct:[id number] Age/Sex: 59 / FADM Date: 06/19/24 Loc: HO.MAMMO Attending Dr: Manolo Garcia MILL MACHINIST Ordering Physician: MANOLO GARCIA NPResults: 1Negative Date of Service: 06/19/24Follow Up: 1 Year From Orig inal Mammogram Procedure(s): MM tomosynthesis screening BI Accession Number(s): [id number] cc: MANOLO GARCIA NP EXAMINATION: MM SCREENING [...] 06/28/24 1030 DD/ 1323 TD/TT: 06/19/24 1336 Bilingual Call Center Representative: Manolo Garcia ANP IMG BI PROCEDURES Final Result * (ABNORMAL) Lipid Panel, Standard (05/02/2024 2:55 PM EDT) Triglycerides 286(H) <150 mg/dL [facility] Comment:Desirable Triglyceri de: less than 150 mg/dLBorderline High Triglyceride 150-199 mg/dLHigh Triglyceride: 200-499 mg/dLVery High Triglyceride: greater than or equal to 5OO mg/dL Cholesterol 216(H) <200 mg/dL [facility] Comment:Desirable Cholestero l: less than 200 mg/dLBorderline High Cholesterol: 200-239 mg/dLHigh Cholesterol: greater than 239 mg/dL LDL Cholesterol Calculated 123(H) <100 mg/dL [facility] Comment:Desirable LDL: less than 100 mg/dLNear Optimal/Above Optimal LDL: 110- 129 mg/dLBorderline High LDL: 130-159 mg/dLHigh LDL: 160-189 mg/dLVery High LDL: greater than or equal to 190 mg/dL HDL Cholesterol 36(L) >40 mg/dL [facility] Comment:Desirable HDL: great er than 40 mg/dL Note: This HDL assay may give artificially low results in patients with liver disease. 05/02/2024 2:55 PM EDT 05/02/2024 4:04 PM EDT [facility] LAB BLOOD ORDERABLES Final Resul t [facility] [address] [place] [phone] * HIV 1/2 ANTIGEN/ANTIBODY,FOURTH GENERATION W/RFL (05/08/2022 2:27 PM EDT) Pathologist [facility] HIV-1/2 ANTIGEN AND ANTIBODIES, 4TH GENERATION W/ REFLEX NON-REACT IRON NON-REACT IRON [facility] Comment: HIV-1 antigen and HIV-1/HIV-2 [...] purpose. For additional information please refer to http://education.[employer] [place]/faq/TYU280 (This link is being provided for informational/ educational purposes only.) The performance of this assay has not been clinically validated in patients less than 2 years old. 05/08/2022 2:27 PM EDT Manolo Garcia ANP LAB BLOOD ORDERABLES Final Resul t Performing Organization Address [facility]/ZIP Co de Phone Number [facility] [address] * Hm Colonoscopy (04/12/2018) Colonoscopy Normal Normal Historical Provider MD HEALTH MAINTENANCE Final Result * HPV mRNA E6/E7 (10/25/2016 9:30 AM EST) HPV mRNA E6/E7 Not Detected NOT DETECTED [facility] Comment: This test was performed using the APTIMA(R) HPV Assay ([employer] This assay detects E6/E7 viral messenger RNA (mRNA) from 14 high-risk HPV types (16,18,31,33,35,39,45,51, 52,56,58,59,66,68). For additional information please refer to: http://education.[place]/faq/EXH533q6 (This link is being provided for informational/ educational purposes only.) Test Performed by [facility], [facility], [address] [place] [address] Naif Pereira M.D., Ph.D., Director of Laboratories , [facility] [id number] Please note: Effective 05/08/2016, HPV testing will be performed using [employer]'s APTIMA test which targets mRNA. Detecting mRNA instead of DNA, as in older methods, offers significant improvements in specificity. 10/25/2016 9:30 AM EST Hazel Corcoran MD HISTORICAL/NON ORDERABLE LABS Final Result Performing Organization Address [facility] Co de Phone Number [facility] [address] from Last 3 Months or Most Recently Relevant to Health Maintenance [place] [address] [place] [address] C3 Care Teams Strip Picker Relationship Specialty Start Date End Date Jennifer Sultana NP [address] [place] [phone] PCP - General Family Medicine 07/28/24 Juanito Srinivasan Plant And Maintenance Technician 05/10/23 Francisco J Palomino Plant And Maintenance TechnicianGas Station Manager 05/16/23 Fawad Vargas Plant And Maintenance TechnicianGas Station Manager 08/11/24
--- OUTSIDE RECORDS SUMMARY | 2025-07-15 14:11 | XMS_ITS | Encounter Summary ---
Demographics Address [address] [facility] [address] [place] [address] Mobile Phone Home Phone Work Phone Email Address Preferred Language en Marital Status Church Affiliation Unknown Race White Ethnic Group Unknown Author Organization [employer] Address [address] [place] [address] [address] [place] [address] Care Team Providers Care Extracorporeal Technician Name Role Phone Ju Khan ANP Primary Care Provider [phone] Jennifer Sultana NP Primary Care Provider Reason for Visit * Reason Comments Med Refill Encounter Details Date Type Department Care Team ([facility] st Contact Info) Description 10/28/2023 Refill [facility] [address] [place], [place] [phone] Ju Khan ANP [address] [place], [place] [phone] Multiple joint pain Social History Tobacco Use [...] Description 08/03/2025 10:45 AM EST Office Visit [facility] [address] [place] [address] Jennifer Sultana NP [address] [place] [address] 09/18/2025 1:00 PM EST Office Visit [facility] [address] [place] [address] Isaiah, Meli, OD [address] [place] [address] documented as of this encounter Visit Diagnoses Diagnosis Multiple joint pain Pain in joint, multiple sites documented in this encounter Additional Health Concerns Assessment Noted Time PHQ-9 Depression Total Score: 9 12/01/19 23 10:12 AM EDT documented as of this encounter Care Teams Extracorporeal Technician Relationship Specialty Start Date End Date Ju Khan ANP [address] [place] [phone] PCP - General Family Medicine 03/20/22 07/27/24 Jennifer Sultana NP [address] [place] [address] PCP - General Family Medicine 07/28/24 Juanito Srinivasan Electronics Computer Mechanic 05/10/23 Francisco J Palomino Electronics Computer MechanicChipper Feeder 05/16/23 Fawad Vargas Electronics Computer MechanicChipper Feeder 08/11/24 documented as of this encounter
--- OUTSIDE RECORDS SUMMARY | 2025-07-15 14:11 | XMS_ITS | Encounter Summary ---
Demographics Address [address] [facility] [address] [place] [address] Mobile Phone Home Phone Work Phone Email Address Preferred Language en Marital Status Muslim Affiliation Unknown Race White Ethnic Group Unknown Author Organization [employer] Address [address] [place] [address] 7[address] [place] [address] Care Team Providers Care Personal Counselor Name Role Phone Ju Khan ANP Primary Care Provider [phone] Jennifer Sultana MATERIALS MANAGEMENT MANAGER Primary Care Provider [phone] Reason for Visit * Reason Comments Med Refill Encounter Details Date Type Department Care Team (Late st Contact Info) Description 11/07/2023 Refill [facility] [address] [place], [place] [phone] Ju Khan ANP [address] [place] [address] Spondylosis 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 Social [...] 10:45 AM EST Office Visit [facility] [address] [place] [address] Jennifer Sultana NP [address] [place] [address] 09/18/2025 1:00 PM EST Office Visit [facility] [address] [place] [address] Isaiah, Meli, OD [address] [place] [address] documented as of this encounter Visit Diagnoses Diagnosis Spondylosis 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 documented in this encounter Additional Health Concerns Assessment Noted Time PHQ-9 Depression Total Score: 9 12/01/19 23 10:12 AM EDT documented as of this encounter Care Teams Personal Counselor Relationship Specialty Start Date End Date Ju Khan ANP [address] [place] [address] PCP - General Family Medicine 03/20/22 07/27/24 Jennifer Sultana NP [address] [place] [address] PCP - General Family Medicine 07/28/24 Juanito Srinivasan Hospice Bereavement Coordinator 05/10/23 Francisco J Palomino Hospice Bereavement CoordinatorHide Paster 05/16/23 Fawad Vargas Hospice Bereavement CoordinatorHide Paster 08/11/24 documented as of this encounter
== END 2025-07-15 00:04 | disposition home or self-care (01) ==
PROVIDERS: Physician Assistant Medical; Emergency Provider Emergency Medicine; PCP Nurse Practitioner Family
DX: J20.9 Acute bronchitis, unspecified (principal); M25.511 Pain in right shoulder; I73.9 Peripheral vascular disease, unspecified; I87.2 Venous insufficiency (chronic) (peripheral); M79.604 Pain in right leg; I12.9 Hypertensive chronic kidney disease with stage 1 through stage 4 chronic kidney disease, or unspecified chronic kidney disease; N18.30 Chronic kidney disease, stage 3 unspecified; J43.9 Emphysema, unspecified
CPT/HCPCS: 36415; 71045; 73564; 73610; 73630; 80048; 80076; 83735; 84484; 85025; 93005; 93971; 94640; 99284; J8540

== ENCOUNTER → 2025-07-14 16:53 | Outpatient (BNV) | payer MEDICAID, SELFPAY | PROVIDERS: Emergency Provider Emergency Medicine; PCP Nurse Practitioner Family; Visit Provider Internal Medicine | DX: R00.0 Tachycardia, unspecified (principal) | CPT/HCPCS: 93010 ==

== ENCOUNTER → 2025-07-14 16:53 | Outpatient (BNV) | payer MEDICAID, SELFPAY | PROVIDERS: Visit Provider Radiology Diagnostic Radiology | DX: J84.9 Interstitial pulmonary disease, unspecified (principal) | CPT/HCPCS: 71045 ==

== ENCOUNTER 2025-08-03 12:01 | Outpatient (REF) | payer MEDICAID, SELFPAY ==
--- NOTE | ~2025-08-03 | XR_ITS ---
EXAMINATION: XR SHOULDER, RIGHT CLINICAL INFORMATION: right shoulder pain, limited rom COMPARISON: None available. TECHNIQUE: Three views of the right shoulder. FINDINGS: No acute fracture, dislocation or suspicious bony lesion is identified. Bone mineralization is decreased. No abnormal soft tissue calcification XR/XR shoulder RT min 2V IMPRESSION: No radiographic evidence of acute osseous findings. Electronically signed by: Manuel Menjivar MD 08/05/2025 03:56 PM EST
--- OUTSIDE RECORDS SUMMARY | 2025-08-03 10:45 | XMS_ITS | Encounter Summary ---
Author Organization [employer] Address [address] [place] [address] Care Team Providers Care Atv Mechanic Name Role Phone Jennifer Sultana NP Primary Care Provider [phone] Reason for Referral * Imaging (Routine) - Authorized Specialty Diagnoses / Procedures Referred By Contac t Referred To Contact Radiology Diagnoses Abdominal bloating Procedures US Abdomen Complete Jennifer Sultana NP [address] [place] [address] Phone: tel: fax: [address] [phone] Phone: tel: fax: Referral ID Status Reason Start Date Expiration Date V isits Requested Visits Authorized [id number] Authorized 08/03/2025 08/03/2026 1 1 * Consultation (Routine) - Pending Review Specialty Diagnoses / Procedures Referred By Contac t Referred To Contact Orthopaedic Surgery Diagnoses Acute pain of right shoulder Jennifer Sultana NP [address] [place] [address] Phone: tel: fax: Referral ID Status Reason Start Date Expiration Date Visits Requested Visits Authorized [id number] Pending Review Specialty Services Required 08/03/2025 08/03/2026 1 1 * Imaging (Routine) - Authorized Specialty Diagnoses / Procedures Referred By Contac t Referred To Contact Radiology Diagnoses Chronic pain syndrome Lumbar radiculopathy Procedures MR Lumbar Spine w/o Contrast Jennifer Sultana NP [address] [place] [address] Phone: tel: fax: [address] [phone] Phone: tel: fax: Referral ID Status Reason Start Date Expiration Date V isits Requested Visits Authorized [id number] Authorized 08/03/2025 08/03/2026 1 1 * Imaging (Routine) - Authorized Specialty Diagnoses / Procedures Referred By Contac t Referred To Contact Radiology Diagnoses Healthcare maintenance Procedures BI Mammogram Screening Tomosynthesis Bilateral Jennifer Sultana NP [address] [place] [address] Phone: tel: fax: [address] [phone] Phone: tel: fax: Referral ID Status Reason Start Date Expiration Date V isits Requested Visits Authorized [id number] Authorized 08/03/2025 08/03/2026 1 1 Reason for Visit * Reason Comments Annual Exam Encounter Details Date Type Department Care Team (Late st Contact Info) Description 08/03/2025 10:45 AM EST Office Visit [facility] MEDICINE [address] [place] [address] Jennifer Sultana NP [address] [place] [address] Healthcare maintenance (Primary Dx); Encounter for screening mammogram for malignant neoplasm of breast; Essential hypertension; Stress incontinence of urine; Abdominal pain, unspecified abdominal location; Chronic pain syndrome; Lumbar radiculopathy; Chronic obstructive pulmonary disease, unspecified COPD type (CMS/HCC) (HCC); Pulmonary emphysema (HCC); FILIPE (obstructive sleep apnea); Former smoker; Depression, unspecified depression type; Mixed hyperlipidemia; Precordial chest pain; Pure hypercholesterolemia; Chronic rhinitis; Abnormal TSH; Dietary counseling; Exercise counseling; Stage 3a chronic kidney disease (CMS/HCC) (HCC); History of hepatitis C; Hyperparathyroidism (CMS/HCC); Constipation, unspecified constipation type; Acute pain of right shoulder; Rosacea; Abdominal bloating; Generalized edema; Encounter for immunization; Edema, unspecified type Social History Tobacco Use Types Packs/Day Years Used Date Smoking Tobacco: Some Days Cigarettes Passive Smoke Exposure: Current Smokeless Tobacco: Current Alcohol Use Standard Drinks/Week Comments Not Currently 0 (1 standard drink = 0.6 oz pur e alcohol) Depression Answer Date Recorded Patient Health Questionnaire-9 Score 22 08/03/2025 Patient Health Questionnaire-9 Score 22 08/03/2025 Last PHQ-9: Questionnaire Data Not on file 1 10/04/2024 Housing Stability Answer Date Recorded What is [...] Date Recorded Patient Health Questionnaire-2 Score 6 08/03/2025 Internet Access Answer Date Recorded Internet Access Q1 Yes 03/30/2025 Internet Access Q2 Not on file 03/30/2025 Comments Unknown Sex and Gender Information Value Date Recorded Sex Assigned at Female 06/26/2022 10:30 AM EDT Legal Sex Female 10:30 AM EDT Gender Identity Female 06/26/2022 10:30 AM EDT Sexual Orientation Straight 06/26/2022 10 :30 AM EDT documented as of this encounter Last Filed Vital Signs Vital Sign Reading Time Taken Comments Blood Pressure 102/60 08/03/2025 10:42 AM EST Pulse 88 08/03/2025 10:42 AM EST Temperature 36.6 C (97.8 F) 08/03/2025 10:42 AM EST Respiratory Rate 20 08/03/2025 10:42 AM EST Oxygen Saturation 94% 08/03/2025 10:42 AM EST Inhaled Oxygen Concentration - - Weight 82.4 kg (181 lb 9.6 oz) 08/03/2025 10:42 AM EST Height 165.1 cm (5' 5 ) 08/03/2025 10:42 AM EST Body Mass Index 30.22 08/03/2025 10:42 AM EST documented in this encounter Functional Status * Over the past 2 weeks, how often have you been bothered by any of the following problems? Question Answer Date of Assessment Author Patient Health Questionnaire -2 Score 6 08/03/2025 12:01 PM Jennyfer Palacios [place] * Little interest or pleasure in doing things Answer Date of Assessment Author Nearly every day 08/03/2025 12:01 PM Jennyfer Palacios [place] * Feeling down, depressed, or hopeless Answer Date of Assessment Author Nearly every day 08/03/2025 12:01 PM Jennyfer Palacios [place] * Trouble falling or staying asleep, or sleeping too much Answer Date of Assessment Author Nearly every day 08/03/2025 12:01 PM Jennyfer Palacios [place] * Feeling tired or having little energy Answer Date of Assessment Author Nearly every day 08/03/2025 12:01 PM Jennyfer Palacios [place] * Poor appetite or overeating Answer Date of Assessment Author More than half the days 08/03/2025 12:01 PM Jennyfer Palacios [place] * Feeling bad about yourself - or that you are a failure or have let yourself or your family down Answer Date of Assessment Author Nearly every day 08/03/2025 12:01 PM Jennyfer Palacios [place] * Trouble concentrating on things, such as reading the newspaper or watching television Answer Date of Assessment Author Nearly every day 08/03/2025 12:01 PM Jennyfer Palacios [place] * Moving or speaking so slowly that other people could have noticed? Or the opposite - being so fidgety or restless that you have been moving around a lot more than usual. Answer Date of Assessment Author Not at all 08/03/2025 12:01 PM Jennyfer Palacios [place] * Thoughts that you would be better off or hurting yourself in some way Answer Date of Assessment Author More than half the days 08/03/2025 12:01 PM Jennyfer Palacios [place] * Patient Health Questionnaire-9 Score Answer Date of Assessment Author 22 08/03/2025 12:01 PM Jennyfer Palacios [place] * How difficult have these problems made it for you to do your work, take care of things at home, or get along with other people? Answer Date of Assessment Author Extremely difficult 08/03/2025 12:01 PM Jennyfer Crisostomo ra, [place] documented as of this encounter Miscellaneous Notes * Assessment & Plan Note - Jennifer Sultana NP - 08/03/2025 10:45 AM ESTAssociated Problem(s): Abdominal pain endoscopy. A. Duodenum, biopsy: Duodenal mucosa with preserved villi and no specific change. B. Stomach, biopsy: Gastric body mucosa with minimal chronic inactive gastritis; negative for H pylori, intestinal metaplasia and dysplasia. * Assessment & Plan Note - Jennifer Sultana NP - 08/03/2025 10:45 AM ESTAssociated Problem(s): Essential hypertension Orders: Lipid Panel, Standard; Future Hemoglobin A1c; Future * Assessment & Plan Note - Jennifer Sultana NP - 08/03/2025 10:45 AM ESTAssociated Problem(s): Stress incontinence of urine * Assessment & Plan Note - Jennifer Sultana NP - 08/03/2025 10:45 AM ESTAssociated Problem(s): Chronic pain syndrome Orders: MR Lumbar Spine w/o Contrast; Future * Assessment & Plan Note - Jennifer Sultana NP - 08/03/2025 10:45 AM ESTAssociated Problem(s): Lumbar radiculopathy Orders: MR Lumbar Spine w/o Contrast; Future * Assessment & Plan Note - Jennifer Sultana NP - 08/03/2025 10:45 AM ESTAssociated Problem(s): COPD (chronic obstructive pulmonary disease) (HCC) * Assessment & Plan Note - Jennifer Sultana NP - 08/03/2025 10:45 AM ESTAssociated Problem(s): Pulmonary emphysema (HCC) * Assessment & Plan Note - Jennifer Sultana NP - 08/03/2025 10:45 AM ESTAssociated Problem(s): FILIPE (obstructive sleep apnea) * Assessment & Plan Note - Jennifer Sultana NP - 08/03/2025 10:45 AM ESTAssociated Problem(s): Former smoker * Assessment & Plan Note - Jennifer Sultana NP - 08/03/2025 10:45 AM ESTAssociated Problem(s): Depression * Assessment & Plan Note - Jennifer Sultana NP - 08/03/2025 10:45 AM ESTAssociated Problem(s): Mixed hyperlipidemia Orders: rosuvastatin (Crestor) 10 MG tablet; Take 1 tablet (10 mg) by mouth in the morning. * Assessment & Plan Note - Jennifer Sultana NP - 08/03/2025 10:45 AM ESTAssociated Problem(s): Precordial chest pain * Assessment & Plan Note - Jennifer Sultana NP - 08/03/2025 10:45 AM ESTAssociated Problem(s): Pure hypercholesterolemia * Assessment & Plan Note - Jennifer Sultana NP - 08/03/2025 10:45 AM ESTAssociated Problem(s): Chronic rhinitis * Assessment & Plan Note - Jennifer Sultana NP - 08/03/2025 10:45 AM ESTAssociated Problem(s): Abnormal TSH Orders: TSH W/Reflex to FT4; Future * Assessment & Plan Note - Jennifer Sultana NP - 08/03/2025 10:45 AM ESTAssociated Problem(s): Dietary counseling * Assessment & Plan Note - Jennifer Sultana NP - 08/03/2025 10:45 AM ESTAssociated Problem(s): Exercise counseling * Assessment & Plan Note - Jennifer Sultana NP - 08/03/2025 10:45 AM ESTAssociated Problem(s): Stage 3a chronic kidney disease (CMS/HCC) (HCC) * Assessment & Plan Note - Jennifer Sultana NP - 08/03/2025 10:45 AM ESTAssociated Problem(s): History of hepatitis C Orders: Comprehensive Metabolic Panel; Future Hepatitis C Antibody with Reflex to HCV, RNA, Quantitative, Real-Time PCR; Future * Assessment & Plan Note - Jennifer Sultana NP - 08/03/2025 10:45 AM ESTAssociated Problem(s): Hyperparathyroidism (CMS/HCC) Orders: Vitamin D, 25-Hydroxy, Total, Immunoassay; Future PTH, Intact And Calcium; Future * Assessment & Plan Note - Jennifer Sultana NP - 08/03/2025 10:45 AM ESTAssociated Problem(s): Constipation Orders: docusate sodium (Colace) 100 MG capsule; Take 1 capsule (100 mg) by mouth 2 times daily. * Assessment & Plan Note - Jennifer Sultana NP - 08/03/2025 10:45 AM ESTAssociated Problem(s): Acute pain of right shoulder Orders: XR Shoulder 2+ Views Right; Future Referral to Orthopaedic Surgery; Future * Assessment & Plan Note - Jennifer Sultana NP - 08/03/2025 10:45 AM ESTAssociated Problem(s): Rosacea * Assessment & Plan Note - Jennifer Sultana NP - 08/03/2025 10:45 AM ESTAssociated Problem(s): Abdominal bloating Orders: US Abdomen Complete; Future * Assessment & Plan Note - Jennifer Sultana NP - 08/03/2025 10:45 AM ESTAssociated Problem(s): Generalized edema documented in this encounter Plan of Treatment Upcoming Encounters Date Type Department Care Team (Late st Contact Info) Description 09/18/2025 1:00 PM EST Office Visit [facility] OPTOMETRY [address] [place] [address] Isaiah, Meli, OD [address] [place] [address] Scheduled Orders Name Type Priority Associated Diagnoses Orde r Schedule BI Mammogram Screening Tomosynthesis Bilateral Imaging Routine Healthcare maintenance Expected: 08/03/2025, Expires: 10/04/2026 PTH, Intact And Calcium Lab Routine Hyperparathyroidism (CMS/HCC) Expected: 08/03/2025 (Approximate), Expires: 08/03/2026 Hepatitis C Antibody with Reflex to HCV, RNA, Quantitative, Real-Time PCR Lab Routine History of hepatitis C Expected: 08/03/2025, Expires: 08/03/2026 MR Lumbar Spine w/o Contrast Imaging Routine Chronic pain syndrome Lumbar radiculopathy Expected: 08/03/2025, Expires: 08/03/2026 XR Shoulder 2+ Views Right Imaging Routine Acute pain of right shoulder Expected: 08/03/2025, Expires: 08/03/2026 US Abdomen Complete Imaging Routine Abdominal bloating Expected: 08/03/2025, Expires: 08/03/2026 Scheduled Referrals Name Type Priority Associated Diagnoses Order Schedule Referral to Orthopaedic Surgery Outpatient Referral Routine Acute pain of right shoulder Expected: 08/03/2025 (Approximate), Expires: 08/03/2026 documented as of this encounter Procedures Procedure Name Priority Date/Time Associated Diagnosis Comments VITAMIN D,25-OH,TOTAL,IA Routine 08/03/2025 12:07 PM EST Hyperparathyroidism (CMS/HCC) TSH W/REFLEX TO FT4 Routine 08/03/2025 1 2:07 PM EST Abnormal TSH HEMOGLOBIN A1C Routine 08/03/2025 12:07 PM EST Essential hypertension LIPID PANEL, STANDARD Routine 08/03/2025 12:07 PM EST Essential hypertension COMPREHENSIVE METABOLIC PANEL Routine 08/03/2025 12:07 PM EST History of hepatitis C POCT URINALYSIS DIPSTICK Routine 08/03/2025 11:53 AM EST Edema, unspecified type documented in this encounter Results * Vitamin D, 25-Hydroxy, Total, Immunoassay (08/03/2025 12:07 PM EST) Vitamin D 25-OH Total 35.3 >30 ng/mL [facility] Comment: Health Based Reference Values*< 20 ng/mL [id number] ng/mL Insufficient> 30 ng/mL Sufficient*Micki ALFARO. N Engl J Med. 2007;357:266-280There is no well-established upper level of normal vitamin Dlevels. Some laboratories use 50 ng/mL as an upper limit ofnormal. However, toxicity is patient-dependent and may occurat any level. Careful correlation with the patient'spresentation is necessary and, if there is concern forvitamin D toxicity, treatment should be consideredirrespective of the serum level.Care must be taken in interpreting Vitamin D [...] confirmed with another method such as LC-MS/MS. Blood Venous blood specimen / Unknown 08/03/2025 12:07 PM EST 08/03/2025 1:35 PM EST us Jennifer Sultana REFUND SPECIALIST LAB BLOOD ORDERABLES Final Resul t Performing Organization Address [facility] Co de Phone Number [facility] [address] [place] [phone] * Hemoglobin A1c (08/03/2025 12:07 PM EST) Hemoglobin A1c 5.6 <6.0 % [facility] Comment:Hemoglobin A1C Refer ence Range Adults: 4.8 - 6.0 % Non diabetic: < 6.0 % Goal: < 7.0 %Additional Action Suggested: > 8.0 %Note: Hemoglobin A1c results are invalid for patients with abnormal amounts of HbF. Blood transfusions may impact the HbA1c concentration in the patient sample. Estimated Average Glucose 114 mg/dL [facility] Comment:eAG = Estimated ave rage glucose which is %A1C expressed asaverage glucose, using the formula of the J4L-VzermrwVmxuarg Glucose study (ADAG), Diabetes Care, Vol.31,#8,Mar. 2007 Blood Venous blood specimen / Unknown 08/03/2025 12:07 PM EST 08/03/2025 1:35 PM EST us Jennifer Sultana REFUND SPECIALIST LAB BLOOD ORDERABLES Final Resul t Performing Organization Address [facility] Co de Phone Number [facility] [address] [place] [phone] * (ABNORMAL) Lipid Panel, Standard (08/03/2025 12:07 PM EST) Triglycerides 181(H) <150 mg/dL [facility] Comment:Desirable Triglyceri de: less than 150 mg/dLBorderline High Triglyceride 150-199 mg/dLHigh Triglyceride: 200-499 mg/dLVery High Triglyceride: greater than or equal to 5OO mg/dL Cholesterol 182 <200 mg/dL [facility] Comment:Desirable Cholestero l: less than 200 mg/dLBorderline High Cholesterol: 200-239 mg/dLHigh Cholesterol: greater than 239 mg/dL LDL Cholesterol Calculated 108(H) <100 mg/dL [facility] Comment:Desirable LDL: less than 100 mg/dLNear Optimal/Above Optimal LDL: 110- 129 mg/dLBorderline High LDL: 130-159 mg/dLHigh LDL: 160-189 mg/dLVery High LDL: greater than or equal to 190 mg/dL HDL Cholesterol 38(L) >40 mg/dL [facility] Comment:Desirable HDL: great er than 40 mg/dL Note: This HDL assay may give artificially low results in patients with liver disease. Blood Venous blood specimen / Unknown 08/03/2025 12:07 PM EST 08/03/2025 1:35 PM EST us Jennifer Sultana NP LAB BLOOD ORDERABLES Final Resul t Performing Organization Address City/[facility]/ZIP Co de Phone Number [facility] [address] [place] [phone] * TSH W/Reflex to FT4 (08/03/2025 12:07 PM EST) Pathologist [facility] [place] TSH reflex Free T4 1.73 0.32 - 4.0 uIU/mL [facility] Blood Venous blood specimen / Unknown 08/03/2025 12:07 PM EST 08/03/2025 1:35 PM EST Jennifer Sultana NP LAB BLOOD ORDERABLES Final Resul t Performing Organization Address City/[facility] Co de Phone Number [facility] [address] [place] [phone] * (ABNORMAL) Comprehensive Metabolic Panel (08/03/2025 12:07 PM EST) Sodium 143 135 - 145 mmol/L [facility] Potassium 3.7 3.3 - 5.1 mmol/L [facility] Chloride 104 96 - 108 mmol/L [facility] Carbon Dioxide 32(H) 22 - 29 mmol/L [facility] Anion Gap 11(L) 12 - 20 [facility] Urea Nitrogen (BUN) 10 9 - 16 mg/dL [facility] Creatinine, Serum 1.50(H) 0.5 - 1.4 mg/dL [facility] Estimated Glomerular Filt Rate 36 [facility] Comment:Chronic Kidney Disea se: Estimated GFR < 60 mL/min/1.89w9Evhysq Kidney Disease: Estimated GFR < 15 mL/min/1.73m2 Glucose 102 60 - 115 mg/dL [facility] Calcium 9.8 8.4 - 10.2 mg/dL [facility] Bilirubin, Total 0.1 0.0 - 1.0 mg/dL [facility] Aspartate Amino Transferase 18 5 - 31 U/L [facility] Alanine Aminotransferase 16 0 - 31 U/L [facility] Total Protein 7.6 6.5 - 8.0 g/dL [facility] Albumin Level 3.9 3.5 - 5.0 g/dL [facility] Alkaline Phosphatase 107 39 - 117 U/L [facility] Blood Venous blood specimen / Unknown 08/03/2025 12:07 PM EST 08/03/2025 1:35 PM EST us Jennifer Sultana NP LAB BLOOD ORDERABLES Final Resul t [facility] [address] [place] [phone] * (ABNORMAL) POCT Urinalysis (08/03/2025 11:53 AM EST) Color, UA Dark Cesia Clarity, UA Turbid Glucose, UA Negative Bilirubin, UA Many Comment:small Ketones, UA Negative Spec Grav, UA 1.030 Blood, UA Negative Negative, None Detected pH, UA 6.0 Protein, UA Many Comment:30mg Urobilinogen, UA 0.2 Leukocytes, UA Negative Negative, Rare, Trace, 1+ (17), 2+ (35), 3+ (70), Trace (15) Nitrite, UA Negative Negative, None Detected QC Media Lot # [id number] Lot# Expiration Date Urine (Urine, Random) 08/03/2025 11:53 AM EST Jennifer Sultana NP POINT OF CARE TEST ENTER/EDIT OR DERABLES Final Result documented in this encounter Visit Diagnoses Diagnosis Healthcare maintenance- Primary Encounter for screening mammogram for malignant neoplasm of breast Essential hypertension Unspecified essential hypertension Stress incontinence of urine Abdominal pain, unspecified abdominal location Chronic pain syndrome Lumbar radiculopathy Thoracic or lumbosacral neuritis or radiculitis, unspecified Chronic obstructive pulmonary disease, unspecified COPD type (CMS/HCC) (HCC) Pulmonary emphysema (HCC) Other emphysema FILIPE (obstructive sleep apnea) Obstructive sleep apnea (adult) (pediatric) Former smoker Personal history of tobacco use, presenting hazards to health Depression, unspecified depression type Mixed hyperlipidemia Precordial chest pain Precordial pain Pure hypercholesterolemia Chronic rhinitis Abnormal TSH Dietary counseling Dietary surveillance and counseling Exercise counseling Stage 3a chronic kidney disease (CMS/HCC) (HCC) History of hepatitis C Personal history of other infectious and parasitic disease Hyperparathyroidism (CMS/HCC) Hyperparathyroidism, unspecified Constipation, unspecified constipation type Acute pain of right shoulder Rosacea Abdominal bloating Flatulence, eructation, and gas pain Generalized edema Edema Encounter for immunization Edema, unspecified type documented in this encounter Additional Health Concerns Assessment Noted Time PHQ-9 Depression Total Score: 22 025 12:01 PM EST documented as of this encounter Care Teams Atv Mechanic Relationship Specialty Start Date End Date Jennifer Sultana NP [address] [place] [phone] PCP - General Family Medicine 07/28/24 Juanito Srinivasan Abseiling Instructor 05/10/23 Francisco J Palomino Abseiling InstructorSquad Boss 05/16/23 Fawad Vargas Abseiling InstructorSquad Boss 08/11/24 documented as of this encounter
[2025-08-03 14:02] LABS: Alanine Aminotransferase 16 U/L (0-31); Albumin Level 3.9 g/dL (3.5-5.0); Alkaline Phosphatase 107 U/L (39-117); Anion Gap 11 (12-20); Aspartate Amino Transferase 18 U/L (5-31); Blood Urea Nitrogen 10 mg/dL (9-16); Calcium 9.8 mg/dL (8.4-10.2); Carbon Dioxide 32 mmol/L (22-29); Chloride 104 mmol/L (96-108); Cholesterol 182 mg/dL (<200); Estimated Glomerular Filt Rate 36; HDL Cholesterol 38 mg/dL (>40); Potassium 3.7 mmol/L (3.3-5.1); Sodium 143 mmol/L (135-145); Total Protein 7.6 g/dL (6.5-8.0); Triglycerides 181 mg/dL (<150)
[2025-08-03 16:47] LABS: Parathyroid Hormone Intact 310.8 pg/mL (8.7-77.1)
[2025-08-03 17:10] LABS: Anion Gap 10 (12-20); Blood Urea Nitrogen 11 mg/dL (9-16); Calcium 9.9 mg/dL (8.4-10.2); Carbon Dioxide 33 mmol/L (22-29); Chloride 104 mmol/L (96-108); Estimated Glomerular Filt Rate 37; Potassium 3.6 mmol/L (3.3-5.1); Sodium 143 mmol/L (135-145)
--- OUTSIDE RECORDS SUMMARY | 2025-08-03 20:09 | XMS_ITS | Encounter Summary ---
Author Organization [employer] Address [address] [place] [address] [address], [place] [address] Care Team Providers Care Damage Cutter Name Role Phone Jennifer Sultana NP Primary Care Provider [phone] Reason for Visit * Reason Onset Date Comments Referral 03/25/2025 Encounter Details Date Type Department Care Team ([facility] Contact Info) Description 03/25/2025 Telephone [facility] MEDICINE [address] [place], [place] [phone] Jennifer Sultana NP [address] [place] [address] Referral Social History Tobacco Use Types Packs/Day [...] pt who reports that female specialist at [facility] will not see her until she has completed an MRI of the spine. Pt states she is unsure of specialist's name but was advised to send MRI results to [phone]. Pt agrees to appt with Blue team provider next week as she needs time to arrange transportation. * Telephone Encounter - Dionisio Barragan - 03/25/2025 11:59 AM EDT Tc from pt requesting a referral for the MRI. For the spine. Any questions contact pt at [phone] documented in this encounter Plan of Treatment Upcoming Encounters Date Type Department Care Team (Late st Contact Info) Description 09/18/2025 1:00 PM EST Office Visit [facility] OPTOMETRY [address] [place], [place] [phone] Isaiah, Meli, OD [address] [place] [address] documented as of this encounter Visit Diagnoses Not on filedocumented in this encounter Additional Health Concerns Assessment Noted Time PHQ-9 Depression Total Score: 27 024 2:31 PM EST documented as of this encounter Care Teams Damage Cutter Relationship Specialty Start Date End Date Jennifer Sultana NP [address] [place] [address] PCP - General Family Medicine 07/28/24 Juanito Srinivasan Educational Technician 05/10/23 Francisco J Palomino Educational TechnicianImmigration Officer 05/16/23 Fawad Vargas Educational TechnicianImmigration Officer 08/11/24 documented as of this encounter
--- OUTSIDE RECORDS SUMMARY | 2025-08-03 20:09 | XMS_ITS | Encounter Summary ---
Author Organization [employer] Address [address] [place] [address] [address] [place] [address] Care Team Providers Care Casket Liner Name Role Phone Jennifer Sultana NP Primary Care Provider [phone] Reason for Visit * Reason Onset Date Comments PT1 03/25/2025 Encounter Details Date Type Department Care Team ([facility] Contact Info) Description 03/25/2025 Telephone [facility] MEDICINE [address] [place] [address] Jennifer Sultana NP [address] [place] [address] PT1 Social History Tobacco Use Types Packs/Day [...] Y/N: Yes Provider name or facility name: [address] [place] [address] Escort needed: Y/N: Yes Do you have a wheelchair: Y/N: No Visits: (2x) documented in this encounter Plan of Treatment Upcoming Encounters Date Type Department Care Team (Late st Contact Info) Description 09/18/2025 1:00 PM EST Office Visit [facility] OPTOMETRY [address] [place] [address] Meli Colon, OD [address] [place] [address] documented as of this encounter Visit Diagnoses Not on filedocumented in this encounter Additional Health Concerns Assessment Noted Time PHQ-9 Depression Total Score: 27 024 2:31 PM EST documented as of this encounter Care Teams Casket Liner Relationship Specialty Start Date End Date Jennifer Sultana NP [address] [place] [address] PCP - General Family Medicine 07/28/24 Juanito Srinivasan Residential Roofer Helper 05/10/23 Francisco J Palomino Residential Roofer HelperIn Home Nanny 05/16/23 Fawad Vargas Residential Roofer HelperIn Home Nanny 08/11/24 documented as of this encounter
--- OUTSIDE RECORDS SUMMARY | 2025-08-03 20:10 | XMS_ITS | Encounter Summary ---
Author Organization [employer] Address [address] [place] [address] Care Team Providers Care Solar Sales Representative And Assessor Name Role Phone Ju Khan Primary Care Provider [phone] Jennifer Sultana NP Primary Care Provider [phone] Reason for Referral * Consultation (STAT) - Closed Specialty Diagnoses / Procedures [facility]erred To Contact Orthopaedic Surgery Diagnoses Other closed fracture of proximal end of right tibia, initial encounter Fry cyst, right Ju Khan ANP [address] [place] [address] Phone: tel: fax: [facility] [address] [place] [address] [address] [place] [address] Phone: tel: Referral ID Status Reason Start Date Expiration Date V isits Requested Visits Authorized [id number] Closed Specialty Services Required 05/05/2024 05/05/2025 3 3 Reason for Visit * Reason Comments Med Refill Encounter Details Date Type Department Care Team (Late st Contact Info) Description 07/03/2024 Refill [facility] MED[facility]INE [address] [place], [place] [phone] Ju Khan ANP [address] [place] [address] Other closed fracture of proximal end of [...] Description 09/18/2025 1:00 PM EST Office Visit [facility] [address] [place] [address] Isaiah, Meli, OD [address] [place] [address] Scheduled Referrals Name Type Priority Associated Diagnoses [...] documented as of this encounter Care Teams Solar Sales Representative And Assessor Relationship Specialty Start Date End Date Ju Khan ANP [address] [place] [address] PCP - General Family Medicine 03/20/22 07/27/24 Jennifer Sultana NP [address] [place] [address] PCP - General Family Medicine 07/28/24 Juanito Srinivasan Muck Farmer 05/10/23 Francisco J Palomino Muck FarmerHoof Trimmer 05/16/23 Fawad Vargas Muck FarmerHoof Trimmer 08/11/24 documented as of this encounter
--- OUTSIDE RECORDS SUMMARY | 2025-08-03 20:10 | XMS_ITS | Encounter Summary ---
Author Organization [employer] Address [address] [place] [address] [address] [place] [address] Care Team Providers Care Hosiery Mater Name Role Phone Ju Khan ANP Primary Care Provider [phone] Jennifer Sultana NP Primary Care Provider [phone] Reason for Visit * Reason Comments Med Refill Encounter Details Date Type Department Care Team ([facility] st Contact Info) Description 07/15/2024 Refill [facility] MEDICINE [address] [place] [employer], [place] [phone] Ju Khan ANP [address] [place], [place] [phone] Multiple joint pain Social History Tobacco Use [...] 1:00 PM EST Office Visit [facility] OPTOMETRY [address] [place] [address] IsaiahMeli posey, OD [address] [place] [address] documented as of this encounter Visit Diagnoses Diagnosis Multiple joint pain Pain in joint, multiple sites documented in this encounter Additional Health Concerns Assessment Noted Time PHQ-9 Depression Total Score: 3 04/04/20 24 1:48 PM EDT documented as of this encounter Care Teams Hosiery Mater Relationship Specialty Start Date End Date Ju Khan ANP [address] [place] [address] PCP - General Family Medicine 03/20/22 07/27/24 Jennifer Sultana NP [address] [place] [address] PCP - General Family Medicine 07/28/24 Juanito Srinivasan Putty Patcher 9/14/23 Francisco J Palomino Putty PatcherNurse Transitional 05/16/23 Fawad Vargas Putty PatcherNurse Transitional 08/11/24 documented as of this encounter
--- OUTSIDE RECORDS SUMMARY | 2025-08-03 20:14 | XMS_ITS | Encounter Summary ---
Demographics Address [address] [place] [address] Mobile Phone Home Phone Work Phone Email Address Preferred Language en Marital Status Yazidism Affiliation Unknown Race White Ethnic Group Unknown Author Organization [employer] Address [address] [facility] [address] [place] [address] Care Team Providers Care Trashman Name Role Phone Jennifer Sultana NP Primary Care Provider [phone] Encounter Details Date Type Department Care Team (Latest Contact Info) Description 08/02/2025 Travel Social History Tobacco Use Types Packs/Day [...] Description 09/18/2025 1:00 PM EST Office Visit [facility] OPTOMETRY [address] [place] [address] IsaiahMeli posey, OD [address] [place] [address] documented as of this encounter Visit Diagnoses Not on filedocumented in this encounter Additional Health Concerns Assessment Noted Time PHQ-9 Depression Total Score: 27 024 2:31 PM EST documented as of this encounter Care Teams Trashman Relationship Specialty Start Date End Date Jennifer Sultana NP [address] [place] [address] PCP - General Family Medicine 07/28/24 Juanito Srinivasan Parts Chaser 05/10/23 Francisco J Palomino Parts ChaserMarketing Graphics Specialist 05/16/23 Fawad Vargas Parts ChaserMarketing Graphics Specialist 08/11/24 documented as of this encounter
--- OUTSIDE RECORDS SUMMARY | 2025-08-03 20:15 | XMS_ITS | Encounter Summary ---
Author Organization [employer] Address [address] [place] [address] [address] [place] [address] Care Team Providers Care Maintenance Mechanic Elevators Name Role Phone Ju Khan ANP Primary Care Provider [phone] Jennifer Sultana ASSISTANT PROFESSOR OF ANTHROPOLOGY Primary Care Provider [phone] Reason for Visit * Reason Onset Date Comments PT-1 06/11/2024 Encounter Details Date Type Department Care Team ([facility] st Contact Info) Description 06/11/2024 Telephone [facility] MEDICINE [address] [place], [place] [phone] Ju Khan ANP [address] [place], [place] [phone] PT-1 Social History Tobacco Use Types Packs/Day [...] Provider name or facility name: [facility] (Dr. Philippe Evans) Facility Address: [address] [place] [address] Escort needed: Y/N: Yes Do you have a wheelchair: Y/N: No If yes- Manual or electric: (Uses walker and cane) Visits: 3 times a month - Patient calling requesting PT1 Home Address verified: Y/N: Yes Provider name or facility name: [facility] Facility Address: [address] [place] [address] Escort needed: Y/N: Yes Do you have a wheelchair: Y/N: No If yes- Manual or electric: Walker and Cane Visits: 4 a month - Patient calling requesting PT1 Home Address verified: Y/N: Yes Provider name or facility name: Ramez John MD Facility Address: [address] [place] [address] Escort needed: Y/N: Yes Do you have a wheelchair: Y/N: No If yes- Manual or electric: Walker and cane Visits: 3 monthly documented in this encounter Plan of Treatment Upcoming Encounters Date Type Department Care Team (Late st Contact Info) Description 09/18/2025 1:00 PM EST Office Visit [facility] OPTOMETRY [address] [place] [address] Meli Colon, OD [address] [place] [address] documented as of this encounter Visit Diagnoses Not on filedocumented in this encounter Additional Health Concerns Assessment Noted Time PHQ-9 Depression Total Score: 3 04/04/20 1:48 PM EDT documented as of this encounter Care Teams Maintenance Mechanic Elevators Relationship Specialty Start Date End Date Ju Khan ANP [address] [place], [place] [phone] PCP - General Family Medicine 03/20/22 07/27/24 Jennifer Sultana NP [address] [place] [address] PCP - General Family Medicine 07/28/24 Juanito Srinivasan Mess Attendant 05/10/23 Francisco J Palomino Mess AttendantResident Manager 05/16/23 Fawad Vargas Mess AttendantResident Manager 08/11/24 documented as of this encounter
--- OUTSIDE RECORDS SUMMARY | 2025-08-03 20:18 | XMS_ITS | Encounter Summary ---
Author Organization [employer] Address [address] [place] [address] [address] [place] [address] Care Team Providers Care Refinery Superintendent Name Role Phone Jennifer Sultana NP Primary Care Provider [phone] Reason for Visit * Reason Onset Date Comments Reschedule 08/22/2024 Encounter Details Date Type Department Care Team ([facility] Contact Info) Description 08/22/2024 Telephone [facility] MEDICINE [address] [place] [address] Jennifer Sultana NP [address] [place] [address] Reschedule Social History Tobacco Use Types Packs/Day [...] Description 09/18/2025 1:00 PM EST Office Visit [facility] OPTOMETRY [address] [place] [address] Meli Colon, OD [address] [place] [address] documented as of this encounter Visit Diagnoses Not on filedocumented in this encounter Additional Health Concerns Assessment Noted Time PHQ-9 Depression Total Score: 27 024 2:31 PM EST documented as of this encounter Care Teams Refinery Superintendent Relationship Specialty Start Date End Date Jennifer Sultana NP [address] [place] [address] PCP - General Family Medicine 07/28/24 Juanito Srinivasan Equal Opportunity Officer 05/10/23 Francisco J Palomino Equal Opportunity OfficerCaptain Waiter/Waitress 05/16/23 Fawad Vargas Equal Opportunity OfficerCaptain Waiter/Waitress 08/11/24 documented as of this encounter
--- OUTSIDE RECORDS SUMMARY | 2025-08-03 20:18 | XMS_ITS | Encounter Summary ---
Author Organization [employer] Address [address] [place] [address] [address] Care Team Providers Care Green Material Value Added Assessor Name Role Phone Ju Khan ANP Primary Care Provider [phone] Jennifer Sultana TELE GROUT SEWER LINE REPAIRER Primary Care Provider [phone] Reason for Visit * Reason Onset Date Comments Med Refill 03/22/2023 Encounter Details Date Type Department Care Team ([facility] st Contact Info) Description 03/22/2023 Telephone [facility] MEDICINE [address] [place], [place] [phone] Ju Khan ANP [address] [place], [place] [phone] Med Refill Social History Tobacco Use Types [...] Description 09/18/2025 1:00 PM EST Office Visit [facility] OPTOMETRY [address] [place], [place] [phone] Meli Colon, OD [address] [place] [address] documented as of this encounter Visit Diagnoses Not on filedocumented in this encounter Additional Health Concerns Assessment Noted Time PHQ-9 Depression Total Score: 9 12/01/19 10:12 AM EDT documented as of this encounter Care Teams Green Material Value Added Assessor Relationship Specialty Start Date End Date Ju Khan ANP [address] [place] [address] PCP - General Family Medicine 03/20/22 07/27/24 Jennifer Sultana NP [address] [place] [address] PCP - General Family Medicine 07/28/24 Juanito Srinivasan Forgesmith 05/10/23 Francisco J Palomino ForgesmithCustomer Agent 05/16/23 Fawad Vargas ForgesmithCustomer Agent 08/11/24 documented as of this encounter
--- OUTSIDE RECORDS SUMMARY | 2025-08-03 20:18 | XMS_ITS | Encounter Summary ---
Author Organization [facility] Address [address] [facility] [address] [place] [address] Phone Care Team Providers Care Wood Scrap Handler Name Role Phone Nick Tejada DO Primary Care Provider [phone] Encounter Details Date Type Department Care Team (Late st Contact Info) Description 05/30/2018 Ancillary Orders [facility] [address] [place] [address] Nick Tejada DO [address] [place] [address] Dizziness Social History Tobacco Use Types Packs/Day [...] giddiness documented in this encounter Care Teams Wood Scrap Handler Relationship Specialty Start Date End Date Nick Tejada [address] [place] [address] PCP - General Cardiology 05/29/18 documented as of this encounter Additional Source Comments The information contained in this document represents components of the legal health record. It is not the complete legal health record.[facility]
--- OUTSIDE RECORDS SUMMARY | 2025-08-03 20:18 | XMS_ITS | Encounter Summary ---
Author Organization [employer] Address [address] [place] [address] Care Team Providers Care Insect Control Aide Name Role Phone Ju Khan ANP Primary Care Provider [phone] Jennifer Sultana DESIGN AGENT Primary Care Provider [phone] Reason for Visit * Reason Comments Med Refill Encounter Details Date Type Department Care Team (Late Contact Info) Description 05/23/2023 Refill [facility] MEDICINE [address] [place] [address] Ju Khan ANP [address] [place] [address] Multiple joint pain Social History Tobacco Use [...] [facility] OPTOMETRY [address] [place], [place] [phone] Meli Colon OD [address] [place] [address] documented as of this encounter Visit Diagnoses Diagnosis Multiple joint pain Pain in joint, multiple sites documented in this encounter Additional Health Concerns Assessment Noted Time PHQ-9 Depression Total Score: 9 12/01/19 23 10:12 AM EDT documented as of this encounter Care Teams Insect Control Aide Relationship Specialty Start Date End Date Ju Khan ANP [address] [place] [address] PCP - General Family Medicine 03/20/22 07/27/24 Jennifer Sultana NP [address] [place] [address] PCP - General Family Medicine 07/28/24 Juanito Srinivasan Lead Producer 05/10/23 Francisco J Palomino Lead ProducerDelivery Crew Worker 05/16/23 Fawad Vargas Lead ProducerDelivery Crew Worker 08/11/24 documented as of this encounter
--- OUTSIDE RECORDS SUMMARY | 2025-08-03 20:18 | XMS_ITS | Clinical Summary ---
Author Organization [employer] Address [address] [place] [address] 7 [place] [address] Care Team Providers Care Highway Commissioner Name Role Phone Jennifer Sultana NP Primary Care Provider [phone] Allergies Active Allergy Reactions Criticality Noted Date [...] MOUTH AT 1 IN THE AFTERNOON Active clonazePAM (KlonoPIN) 2 MG tablet TAKE [...] IN THE MORNING 180 tablet 024 Active dicyclomine (Bentyl) 20 MG tablet TAKE 1 TABLET BY MOUTH THREE TIMES DAILY NEEDED FOR ABDOMINAL PAIN 023 Active Colloidal Oatmeal 1 % lotionIndications :Generalized [...] drink once a day NEEDED FOR CONSTIPATION 024 Active metoprolol tartrate (Lopressor) 25 MG tablet TAKE 1/2 TABLET BY MOUTH TWICE DAILY IN THE MORNING AND EVENING 90 tablet 3 024 Active SUMAtriptan (Imitrex) 25 MG tabletIndications :Nonintractable [...] tablets (50mg) if tolerated 30 tablet 11 2025 Active pantoprazole (ProtoNix) 40 MG EC [...] MOUTH EVERY MORNING 90 tablet 1 Active ipratropium-albut nitesh (Duo-Neb) 0.5-2.5 mg/3 mL nebulizer solution Take 3 mL by nebulization every 6 (six) hours. 180 mL 07/08/20 25 12:01 PM EST 2025 Active Nebulizer misc 1 kit Every 4-6 hours as needed (wheezing/SOB). 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 90 tablet 1 07/17/20 25 4:19 PM EST 025 Active senna (Senokot) 8.6 MG tablet TAKE 2 TABLETS BY MOUTH EVERY DAY AT BEDTIME FOR CONSTIPATION 180 tablet 1 Active docusate sodium (Colace) 100 MG capsuleIndication s:Constipation, unspecified constipation type Take 1 capsule (100 mg) by mouth 2 times daily. 60 capsule 3 025 2025 Active rosuvastatin (Crestor) 10 MG tabletIndications :Mixed hyperlipidemia Take 1 tablet (10 mg) by mouth in the morning. 90 tablet 1 025 Active Dextromethorphan- guaiFENesin 10-100 MG/5ML liquid Take 5 mL by mouth if needed in the morning and at bedtime (cough) for up to 20 days. 100 mL 1 025 2024 Active cholecalciferol VITAMIN D (Vitamin D-3) 50 MCG (1999 UT) capsule Take 1 capsule (50 mcg) by mouth Once per day. 30 capsule 11 025 2025 Active ibuprofen 600 MG tablet Take 1 tablet (600 mg) by mouth every 8 (eight) hours if needed for mild pain for up to 60 doses. 30 tablet 1 Active metroNIDAZOLE (Metrogel) 1 % gel Apply topically Once per day. 100 g 2 025 2025 Active Suboxone 12-3 MG per sublingual film DISSOLVE 2 FILMS UNDER THE TONGUE DAILY 2024 Discontinued(T herapy completed) cyclobenzaprine (Flexeril) 5 MG tabletIndications :Chronic pain syndrome TAKE 1 TABLET BY MOUTH AT BEDTIME NEEDED FOR PAIN 30 tablet 1 024 2024 Discontinued(T herapy completed) furosemide (Lasix) 20 MG tablet Take 20 mg by mouth in the morning. 2024 Discontinued(R eorder (will not trigger notification to Pharmacy)) ipratropium-albut nitesh (Duo-Neb) 0.5-2.5 mg/3 mL nebulizer solution Take 3 mL by nebulization every 6 (six) hours if needed for wheezing or shortness of breath. 2024 Discontinued(D uplicate order (will not trigger notification to Pharmacy)) fluticasone (Flonase) 50 MCG/ACT nasal sprayIndications: Chronic rhinitis USE 1 SPRAY IN EACH NOSTRIL IN THE MORNING 48 g 024 2024 Discontinued(T herapy completed) famotidine (Pepcid) 20 MG tabletIndications :Stage 3a chronic kidney disease (CMS/HCC) (HCC) Take 1 tablet (20 mg) by mouth Once per day. 30 tablet 11 07/17/20 25 4:19 PM EST 024 2024 Discontinued(T herapy completed) Fiber-Lax 625 MG tablet TAKE 1 TABLET BY MOUTH EVERY MORNING 90 tablet 3 07/17/20 25 4:19 PM EST 2024 Discontinued(T herapy completed) rosuvastatin (Crestor) 10 MG tabletIndications :Mixed hyperlipidemia TAKE 1 TABLET BY MOUTH EVERY MORNING 90 tablet 1 025 2024 Discontinued docusate sodium (Colace) 100 MG capsule TAKE 1 CAPSULE BY MOUTH TWICE DAILY IN THE MORNING AND IN THE EVENING 180 capsule 3 07/17/20 25 4:19 PM EST 025 2024 Discontinued(T herapy completed) senna (Senokot) 8.6 MG tablet TAKE 2 TABLETS BY MOUTH EVERY DAY AT BEDTIME FOR CONSTIPATION 180 tablet 1 025 2024 Discontinued pregabalin (Lyrica) 75 MG capsuleIndication s:Spondylosis 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 Take 1 capsule (75 mg) by mouth 3 times daily. 90 capsule 025 2024 Discontinued rosuvastatin (Crestor) 10 MG tabletIndications :Mixed hyperlipidemia TAKE 1 TABLET BY MOUTH EVERY MORNING 90 tablet 1 07/17/20 25 4:19 PM EST 025 2024 Discontinued(R eorder (will not trigger notification to Pharmacy)) Hospital, Clinic, or Other Facility Administered Medication Ordered Dose Route Frequency Start Date End Date Status ipratropium-albutero l (Duo-Neb) 0.5-2.5 mg/3 mL nebulizer solution 3 mgIndications:COPD exacerbation (CMS/HCC) (HCC),Cough in adult patient 3 mg NEBULIZATION Once 07/08/2025 07/08/2025 Ended Active Problems Problem Noted Date Diagnosed Date History of hepatitis C 08/03/2025 Assessment & Plan (08/03/2025 11:39 AM EST): Orders: Comprehensive Metabolic Panel; Future Hepatitis C Antibody with Reflex to HCV, RNA, Quantitative, Real-Time PCR; Future Hyperparathyroidism 08/03/2025 Assessment & Plan (08/03/2025 11:39 AM EST): Orders: Vitamin D, 25-Hydroxy, Total, Immunoassay; Future PTH, Intact And Calcium; Future Constipation 08/03/2025 Assessment & Plan (08/03/2025 11:39 AM EST): Orders: docusate sodium (Colace) 100 MG capsule; Take 1 capsule (100 mg) by mouth 2 times daily. Acute pain of right shoulder 08/03/2025 Assessment & Plan (08/03/2025 11:39 AM EST): Orders: XR Shoulder 2+ Views Right; Future Referral to Orthopaedic Surgery; Future Rosacea 08/03/2025 Assessment & Plan (08/03/2025 11:39 AM EST): Abdominal bloating 08/03/2025 Assessment & Plan (08/03/2025 11:39 AM EST): Orders: US Abdomen Complete; Future Generalized edema 08/03/2025 Assessment & Plan (08/03/2025 11:39 AM EST): Normal breast exam 10/07/2024 Dietary counseling 08/17/2024 Assessment & Plan (08/03/2025 11:39 AM EST): Assessment & Plan (08/17/2024 12:32 PM EST): Encouraged minimizing processed foods and increasing whole foods particularly vegetables Exercise counseling 08/17/2024 Assessment & Plan (08/03/2025 11:39 AM EST): Assessment & Plan (08/17/2024 12:34 PM EST): Encouraged daily movement, working up to 30 minutes daily Delayed gastric emptying 07/31/2024 Overview (07/31/2024): see gastric emptying study 07/2024, severe retention. Hypercalcemia 07/28/2024 Rhinosinusitis 06/12/2024 Essential hypertension 05/09/2024 Overview (08/03/2025): Pharmacologic Therapy: Furosemide 20 mg every morning Metoprolol tartrate 12.5 mg twice daily Verapamil HCL ER 120 mg every evening Echo: Recent echocardiogram with LVEF of 55-60%. No wall motion abnormalities. Normal diastolic function. Otherwise unremarkable. (Cardiology note 2024) Assessment & Plan (08/03/2025 11:39 AM EST): Orders: Lipid Panel, Standard; Future Hemoglobin A1c; Future Assessment & Plan (08/17/2024 12:31 PM EST): Stable at goal today Uterine leiomyoma 04/16/2024 Thoracic back pain 04/16/2024 FILIPE (obstructive sleep apnea) 04/16/2024 Assessment & Plan (08/03/2025 11:39 AM EST): History of tubal ligation 04/16/2024 Family history of malignant neoplasm of breast 0 04/16/2024 Family history of alcoholism 04/16/2024 Class 1 obesity 04/16/2024 Blindness of left eye 04/16/2024 Anorexia nervosa, restricting type 04/16/2024 Abdominal pain 03/19/2023 Assessment & Plan (08/03/2025 11:39 AM EST): endoscopy. A. Duodenum, biopsy: Duodenal mucosa with preserved villi and no specific change. B. Stomach, biopsy: Gastric body mucosa with minimal chronic inactive gastritis; negative for H pylori, intestinal metaplasia and dysplasia. Assessment & Plan (08/17/2024 12:30 PM EST): Add famotidine, ct reassuring, utd on colonoscopy, followed by gi, Ultrasound ordered Acid reflux 03/19/2023 Carotid artery stenosis 03/19/2023 Depression 03/19/2023 Assessment & Plan (08/03/2025 11:39 AM EST): Precordial chest pain 03/19/2023 Assessment & Plan (08/03/2025 11:39 AM EST): Spondylosis 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 myelopa thy 03/19/2023 Tubular adenoma 03/19/2023 Overview (08/31/2023): Colonoscopy upcoming 09/2023 COPD (chronic obstructive pulmonary disease) Assessment & Plan (08/03/2025 11:39 AM EST): Chronic constipation 12/18/2022 Abnormal TSH 08/25/2022 Assessment & Plan (08/03/2025 11:39 AM EST): Orders: TSH W/Reflex to FT4; Future Deviated septum 08/25/2022 Hypergammaglobulinemia 08/25/2022 Moderate persistent asthma without complication 08/25/2022 Multiple joint pain 08/25/2022 Multiple nodules of lung 08/25/2022 Muscle pain 08/25/2022 Opioid dependence 08/25/2022 Assessment & Plan (08/17/2024 12:35 PM EST): Stable on suboxone Pulmonary emphysema 08/25/2022 Assessment & Plan (08/03/2025 11:39 AM EST): Assessment & Plan (08/17/2024 12:32 PM EST): Reassuring exam today, continue prn nebulizer Mixed hyperlipidemia 08/25/2022 Assessment & Plan (08/03/2025 11:39 AM EST): Orders: rosuvastatin (Crestor) 10 MG tablet; Take 1 tablet (10 mg) by mouth in the morning. Raised TSH level 08/25/2022 Recurrent acute sinusitis [...] Stage 3a chronic kidney disease (CMS/HCC) 2021 Assessment & Plan (08/03/2025 11:39 AM EST): Visual impairment 08/25/2022 Degeneration of lumbar intervertebral disc 08/10 Assessment & Plan (11/30/2022 1:39 PM EDT): She has upcoming ortho consultation and PT Lumbar radiculopathy 08/10/2021 Assessment & Plan (08/03/2025 11:39 AM EST): Orders: MR Lumbar Spine w/o Contrast; Future Chronic rhinitis 12/20/2018 Assessment & Plan (08/03/2025 11:39 AM EST): Stress incontinence of urine 12/20/2018 Overview (08/03/2025): 2024- in care with urology Assessment & Plan (08/03/2025 11:39 AM EST): Iron deficiency anemia due to chronic blood loss 12/18/2018 Tubular adenoma of colon 12/18/2018 Blood in urine 09/27/2018 Abnormal MRI, breast 05/07/2018 Chronic pain syndrome 02/04/2018 Assessment & Plan (08/03/2025 11:39 AM EST): Orders: MR Lumbar Spine w/o Contrast; Future Postural dizziness 02/04/2018 Rib lesion 10/12/2017 Asthenia [...] Vitamin D deficiency 11/06/2016 Pure hypercholesterolemia 09/22/2016 Assessment & Plan (08/03/2025 11:39 AM EST): Chronic hepatitis C (CMS/HCC) 09/08/2016 Recurrent major depression in partial remission 09/08/2016 Former smoker 09/08/2016 Assessment & Plan (08/03/2025 11:39 AM EST): Resolved Problems Problem Noted Date Diagnosed Date [...] Encounters Date Type Department Care Team Description 08/03/2025 10:45 AM EST Office Visit [address] [address] Jennifer Sultana NP Healthcare maintenance (Primary Dx); Encounter for screening [...] edema; Encounter for immunization; Edema, unspecified type 08/03/2025 Orders Only GENERIC EXTERNAL DATA DEPARTMENT Provider, Generic External Data 08/03/2025 Travel 08/02/2025 Travel 07/27/2025 Refill [facility] [address] [place] [phone] Jennifer Sultana NP 07/22/2025 Patient Outreach [address] [address] Jennifer Sultana NP Pre-visit Planning (SDOH screening was completed on 03/30/2025) 07/20/2025 Patient Outreach [address] [address] Jennifer Sultana NP Care Coordination (CH[facility] outreach for SDOH PT-1 and food needs-referral completed /) 07/17/[address] [phone] Jennifer Sultana NP Referral 07/17/[address] [address] Jennifer Sultana NP PT1 07/14/2025 Orders Only [facility] External Provider, [facility] 07/13/2025 Refill [facility] [address] [place] [phone] Jennifer Sultana NP 07/10/[address] [address] Jennifer Sultana NP Spondylosis 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; Mixed hyperlipidemia 07/08/2025 10:40 AM EST Office Visit [facility] [address] [address] Name, MD Dionisio COPD exacerbation ([facility]) (HCC) (Primary Dx); Cough in adult patient 07/08/2025 Travel 06/28/2025 Refill [facility] [address] [place] [phone] Jennifer Sultana NP 06/16/2025 Refill [facility] [address] [place] [phone] Jennifer Sultana NP Spondylosis 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 06/10/2025 Telephone [facility] [address] [place] [phone] Jennifer Sultana NP Referral 06/03/[address] [place] [address] Jennifer Sultana NP Durable Medical Equipment 05/31/2025 Refill [facility] [address] [place] [phone] Jennifer Sultana NP 05/25/2025 Patient Outreach [facility] [address] [place] [address] Jennifer Sultana NP Pre-visit Planning (SDOH unable to reach LVM ) 05/08/2025 Patient Outreach [facility] [address] [place] [address] Jennifer Sultana NP Pre-visit Planning (SDOH unable to reach LVM) 05/08/2025 Telephone [facility] [address] [place] [address] Jennifer Sultana NP Chart Prep 05/07/[address] [address] Jennifer Sultana NP Med Refill 05/05/[address] [address] Jennifer Sultana NP Spondylosis 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 from Last 3 Months Immunizations Immunization Administration Dates Next Due Influenza injectable quadriv alent IIV4 with preservative 06/23/2019,05/17/2018,07/06/2017 Influenza injectable quadriv alent preservative free 07/02/2023,11/11/2020 Influenza, IIV3, injectable 06/08/2015, 3,05/03/2010 Influenza, seasonal, injecta ble, preservative free 08/03/2025,07/28/2024 Pfizer Covid-19 Vaccine 12+ 08/03/2025, Pfizer Covid-19 Vaccine 12+ Bivalent 12/18/2022 Pneumococcal [...] Mass Index 30.22 08/03/2025 10:42 AM EST Plan of Treatment Upcoming Encounters Date Type Department Care Team (Late st Contact Info) Description 09/18/2025 1:00 PM EST Office Visit [facility] [address] [place], [place] [phone] Isaiah, Meli, OD [address] [place] [address] Health Maintenance Due Date Last Done Comments CT Colonography 1965 FIT DNA/Cologuard 1967 FIT 1965 FOBT 1965 Sigmoidoscopy 1965 Alcohol/Substance Use Screening 1979 Hepatitis A Vaccines (1 of 2 - Risk 2-dose series) 1986 Hepatitis B Vaccines (1 of 3 - 19+ 3-dose series) 1986 Pap Smear 02/11/1988 RSV Patients and Patients Aged 60 years or older (1 - Risk 50-74 years 1-dose series) 2017 Cervical Cancer Screening 10/25/2021 HPV/Cotest 10/25/2021 10/25/2016 Mammogram 06/30/2025 06/30/2024, 05/28, 04/04/2023, Additional history exists Depression Monitoring 02/01/2026 08/03/2025, 025 SDOH Screening 03/30/2026 03/30/2025 Disability Screening 04/10/2026 04/10/2025 Tobacco Screening 04/10/2026 04/10/2025 Colonoscopy 10/17/2026 10/17/2023, 04/12/2018 Colorectal Cancer Screening 10/17/2026 DTaP/Tdap/Td Vaccines (2 - Td or Tdap) 10/25/2026 10/25/2016, 03/04/2010 Lipid Panel 08/03/2030 08/03/2025, 01/2024, 02/01/2023, Additional history exists Zoster Vaccines Completed 09/22/2019, 06/23/2019 HIV Screening Completed 05/08/2022 Pneumococcal Vaccine: 50+ Years Completed 12/18/2022, 06/23/2019, 02/09/2017, Additional history exists COVID-19 Vaccine Completed 08/03/2025, 09/2023, 12/18/2022, Additional history exists Influenza Vaccine Completed 08/03/2025, , 07/02/2023, Additional history exists HIB Vaccines Aged Out [...] Procedure Name Priority Date/Time Associated Diagnosis Comments BASIC METABOLIC PANEL Routine 08/03/2025 12:07 PM EST PTH, INTACT WITHOUT CALCIUM Routine 08/03/2025 12:07 PM EST VITAMIN D,25-OH,TOTAL,IA Routine 08/03/2025 12:07 PM EST Hyperparathyroidism (CMS/HCC) HEMOGLOBIN A1C Routine 08/03/2025 12:07 PM EST Essential hypertension LIPID PANEL, STANDARD Routine 08/03/2025 12:07 PM EST Essential hypertension TSH W/REFLEX TO FT4 Routine 08/03/2025 1 2:07 PM EST Abnormal TSH COMPREHENSIVE METABOLIC PANEL Routine 08/03/2025 12:07 PM EST History of hepatitis C POCT URINALYSIS DIPSTICK Routine 08/03/2025 11:53 AM EST Edema, unspecified type XR CHEST 1 VIEW Routine 07/14/2025 11:05 [...] TOMOSYNTHESIS BILATERAL Routine 06/19/2024 1:23 PM EDT HIV 1/2 ANTIGEN/ANTIBODY, FOURTH GENERATION W/RFL Routine 05/08/2022 2:27 PM EDT HM COLONOSCOPY Routine 04/12/2018 ZZZ HISTORICAL HPV MRNA E6/E7 Routine 10/25/2016 9:30 AM EST from Last 3 Months or Most Recently Relevant to Health Maintenance Results * Vitamin D, 25-Hydroxy, Total, Immunoassay (08/03/2025 12:07 PM EST) Vitamin D 25-OH Total 35.3 >30 ng/mL [facility] Comment: Health Based Reference Values*< 20 ng/mL Ueuvmowrd45-44 ng/mL Insufficient> 30 ng/mL Sufficient*Micki ALFARO. N [...] ORDERABLES Final Resul t Performing Organization Address [facility] Co de Phone Number [facility] [address] [place] [phone] * TSH W/Reflex to FT4 (08/03/2025 12:07 PM EST) TSH reflex Free T4 1.73 0.32 - 4.0 uIU/mL [facility] Blood Venous blood specimen / Unknown 08/03/2025 12:07 PM EST 08/03/2025 1:35 PM EST us Jennifer Sultana NP LAB BLOOD ORDERABLES Final Resul t Performing Organization Address [facility] Co de Phone Number [facility] [address] [place] [phone] * (ABNORMAL) PTH, Intact Without Calcium (08/03/2025 12:07 PM EST) Parathyroid Hormone, Intact 310.8(H) 8.7 - 77.1 pg/mL [facility] 08/03/2025 12:0 7 PM EST 08/03/2025 1:35 PM EST us Generic External Data Provider LAB BLOOD ORDERAB LES Final Result Performing Organization Address [facility] Phone Number [facility] [address] [place] [phone] * Hemoglobin A1c (08/03/2025 12:07 PM EST) Hemoglobin A1c 5.6 <6.0 % [facility] Comment:Hemoglobin A1C Refer ence Range Adults: 4.8 - 6.0 % Non diabetic: < 6.0 % Goal: < 7.0 %Additional Action Suggested: > 8.0 %Note: Hemoglobin A1c results are invalid for patients with abnormal amounts of HbF. Blood transfusions may impact the HbA1c concentration in the patient sample. Estimated Average Glucose 114 mg/dL [facility] Comment:eAG = Estimated ave rage glucose which is %A1C expressed asaverage glucose, using the formula of the H5A-JudmxvzWfougse Glucose study (ADAG), Diabetes Care, Vol.31,#8,Mar. 2007 Blood Venous blood specimen / Unknown 08/03/2025 12:07 PM EST 08/03/2025 1:35 PM EST us Jennifer Sultana CONSERVATION WORKER LAB BLOOD ORDERABLES Final Resul t Performing Organization Address [facility] Co me Phone Number [facility] [address] [place] [phone] * (ABNORMAL) Lipid Panel, Standard (08/03/2025 12:07 PM EST) Triglycerides 181(H) <150 mg/dL [facility] Comment:Desirable Triglyceri de: less than 150 mg/dLBorderline High Triglyceride 150-199 mg/dLHigh Triglyceride: 200-499 mg/dLVery High Triglyceride: greater than or equal to 5OO mg/dL Cholesterol 182 <200 mg/dL [facility] Comment:Desirable Cholestero l: less than 200 mg/dLBorderline High Cholesterol: 200-239 mg/dLHigh Cholesterol: greater than 239 mg/dL LDL Cholesterol Calculated 108(H) <100 mg/dL [facility] Comment:Desirable LDL: less than 100 mg/dLNear Optimal/Above Optimal LDL: 110- 129 mg/dLBorderline High LDL: 130-159 mg/dLHigh LDL: 160-189 mg/dLVery High LDL: greater than or equal to 190 mg/dL HDL Cholesterol 38(L) >40 mg/dL [facility] Comment:Desirable HDL: great er than 40 mg/dL Note: This HDL assay may give artificially low results in patients with liver disease. Blood Venous blood specimen / Unknown 08/03/2025 12:07 PM EST 08/03/2025 1:35 PM EST us Jennifer Sultana CONSERVATION WORKER LAB BLOOD ORDERABLES Final Resul t [facility] [address] [place] [phone] * (ABNORMAL) Comprehensive Metabolic Panel (08/03/2025 12:07 PM EST) Sodium 143 135 - 145 mmol/L [facility] Potassium 3.7 3.3 - 5.1 mmol/L [facility] Chloride 104 96 - 108 mmol/L [facility] Carbon Dioxide 32(H) 22 - 29 mmol/L [facility] Anion Gap 11(L) 12 - 20 [facility] Urea Nitrogen (BUN) 10 9 - 16 mg/dL [facility] Creatinine, Serum 1.50(H) 0.5 - 1.4 mg/dL [facility] Estimated Glomerular Filt Rate 36 [facility] Comment:Chronic Kidney Disea se: Estimated GFR < 60 mL/min/[id number] Kidney Disease: Estimated GFR < 15 mL/min/1.73m2 Glucose 102 60 - 115 mg/dL [facility] Calcium 9.8 8.4 - 10.2 mg/dL [facility] Bilirubin, Total 0.1 0.0 - 1.0 mg/dL [facility] Aspartate Amino Transferase 18 5 - 31 U/L [facility] Alanine Aminotransferase 16 0 - 31 U/L [facility] Total Protein 7.6 6.5 - 8.0 g/dL [facility] Albumin Level 3.9 3.5 - 5.0 g/dL [facility] Alkaline Phosphatase 107 39 - 117 U/L [facility] Blood Venous blood specimen / Unknown 08/03/2025 12:07 PM EST 08/03/2025 1:35 PM EST us Jennifer Sultana NP LAB BLOOD ORDERABLES Final Resul t [facility] [address] [place] [phone] * (ABNORMAL) Basic Metabolic Panel (08/03/2025 12:07 PM EST) Sodium 143 135 - 145 mmol/L [facility] Potassium 3.6 3.3 - 5.1 mmol/L [facility] Chloride 104 96 - 108 mmol/L [facility] Carbon Dioxide 33(H) 22 - 29 mmol/L [facility] Anion Gap 10(L) 12 - 20 [facility] Urea Nitrogen (BUN) 11 9 - 16 mg/dL [facility] Creatinine, Serum 1.47(H) 0.5 - 1.4 mg/dL [facility] Estimated Glomerular Filt Rate 37 [facility] Comment:Chronic Kidney Disea se: Estimated GFR < 60 mL/min/[id number] Kidney Disease: Estimated GFR < 15 mL/min/1.73m2 Glucose 100 60 - 115 mg/dL [facility] Calcium 9.9 8.4 - 10.2 mg/dL [facility] 08/03/2025 12:0 7 PM EST 08/03/2025 1:35 PM EST us Dionisio Funes MD LAB BLOOD ORDERABLES Final Resul t [facility] [address] [place] [phone] * (ABNORMAL) POCT Urinalysis (08/03/2025 11:53 [...] Urine (Urine, Random) 08/03/2025 11:53 AM EST us Jennifer Sultana NP POINT OF CARE TEST ENTER/EDIT OR DERABLES Final Result * XR Chest 1 View (07/14/2025 11:05 PM EST) Anatomical Region Laterality Modality Chest Radiographic Jodee ging 07/14/2025 11:0 5 PM EST Narrative 07/14/2025 11:06 PM EST [address] [address] XRay Report Signed Patient: Cherri Nash MR#: [id number] : 1965 Acct:[id number] Age/Sex: 60 / F ADM Date: 07/14/25 Loc: HO.ED Attending Dr: Ordering Physician: Mahi Rodrigez PA-C Date of Service: 07/14/25 Procedure(s): XR chest 1V Accession Number(s): [id number] cc: Jennifer Sultana [employer]SERVATION WORKER; Mahi Rodrigez PA-C Reason for Exam: sob CLINICAL HISTORY: sob 1 view chest x-ray Comparison: CT/REG/AR/SR - CT CHEST WO IV CON - [...] in OV> 07/14/252305 DD/ 04 TD/TT: 07/14/252304 Livestock Yard Supervisor: Procedure Note Donotuseinterpreter, Image - 07/14/[address] [address] XRay Report Signed Patient: Cherri Nash JMR#: [id number] : 1965Acct:[id number] Age/Sex: 60 / FADM Date: 07/14/25 Loc: HO.ED Attending Dr: Ordering Physician: Mahi Rodrigez PA-C Date of Service: 07/14/25 Procedure(s): XR chest 1V Accession Number(s): [id number] cc: Jennifer Sultana CONSERVATION WORKER; Mahi Rodrigez PA-C Reason for Exam: sob CLINICAL HISTORY: sob 1 view chest x-ray Comparison: CT/REG/AR/SR - CT CHEST WO IV CON - [...] in OV> 07/14/252305 DD/ 04 TD/TT: 07/14/252304 Livestock Yard Supervisor: [facility] External Provider IMG XR PROCEDURES Edited Result - Final * ECG 12 lead (07/08/2025 11:10 AM EST) Narrative Name, MD Dionisio - 07/08/2025 11:10 AM EST NSR, HR of 71, No ST-T changes Dionisio Funes MD ECG ORDERABLES Final Result * POCT Rapid Influenza B PARRA ID NOW (07/08/2025 10:48 AM EST) Influenza B Negative Negative, Indeterminate [facility] QC Media Lot # [id number] [facility] Lot# Expiration Date [facility] Swab 07/08/2025 10:4 8 AM EST Dionisio Funes MD POINT OF CARE TEST ENTER/EDIT OR DERABLES Final Result Performing Organization Address [facility] Co de Phone Number [facility] [address] [place] [phone] * POCT Rapid Influenza A PARRA ID NOW (07/08/2025 10:48 AM EST) Influenza A Negative Negative, Indeterminate [facility] QC Media Lot # [id number] [facility] Lot# Expiration Date [facility] Swab 07/08/2025 10:4 8 AM EST Dionisio Funes MD POINT OF CARE TEST ENTER/EDIT OR DERABLES Final Result Performing Organization Address City/[facility]/ZIP Co de Phone Number [facility] [address] [place] [phone] * POCT Rapid Strep A PARRA ID NOW (07/08/2025 10:48 AM EST) Rapid Strep A Screen Negative Negative, None Detected QC Media Lot # [id number] Lot# Expiration Date Swab 07/08/2025 10:4 8 AM EST Dionisio Name POINT OF CARE TEST ENTER/EDIT OR DERABLES Final Result * POCT Rapid Covid-19 BinaxNOW (07/08/2025 10:48 AM EST) Rapid COVID Ag Negative [facility] QC Media Lot # [id number] [facility] Lot# Expiration Date [id number] [facility] Swab 07/08/2025 10:4 8 AM EST us Dionisio Name POINT OF CARE TEST ENTER/EDIT OR DERABLES Final Result Performing Organization Address City/State/[facility] Co de Phone Number [facility] [address] [place] [phone] * BI Mammogram Screening Tomosynthesis Bilateral (06/19/2024 1:23 PM EDT) Anatomical Region Laterality Modality Breast Bilateral Mammography 06/19/2024 1:23 PM EDT Narrative 06/28/2024 10:33 AM EDT [address] [place] [address] Mammography Report Signed Patient: Cherri Nash MR#: [id number] : 1965 Acct:[id number] Age/Sex: 59 / F ADM Date: 06/19/24 Loc: HO.MAMMO Attending Dr: Manolo Garcia NP Ordering Physician: MANOLO GARCIA NP Results: 1Negative Date of Service: 06/19/24 Follow Up: 1 Year From [facility] ina Mammogram Procedure(s): MM tomosynthesis screening BI Accession Number(s): [id number] cc: MANOLO GARCIA NP EXAMINATION: MM SCREENING [...] 06/28/24 1030 DD/ 1323 TD/TT: 06/19/24 [address] Supervisor: Procedure Note Donotuseinterpreter, Image - 06/28/2024 [facility] [address] [place] [address] Mammography Report Signed Patient: Cherri Nash JMR#: [id number] : 1965Acct:[id number] Age/Sex: 59 / FADM Date: 06/19/24 Loc: HO.MAMMO Attending Dr: Manolo Garcia NP Ordering Physician: MANOLO GARCIA NPResults: 1Negative Date of Service: 06/19/24Follow Up: 1 Year From Orig inal Mammogram Procedure(s): MM tomosynthesis screening BI Accession Number(s): [id number] cc: MANOLO GARCIA NP EXAMINATION: MM SCREENING [...] 06/28/24 1030 DD/ 1323 TD/TT: 06/19/24 [address] Supervisor: us Manolo Garcia ANP IMG BI PROCEDURES Final Result * HIV 1/2 ANTIGEN/ANTIBODY,FOURTH GENERATION W/RFL (05/08/2022 2:27 PM EDT) HIV-1/2 ANTIGEN AND ANTIBODIES, 4TH GENERATION W/ REFLEX NON-REACT IRON NON-REACT IRON [facility] Comment: HIV-1 antigen and HIV-1/HIV-2 [...] purpose. For additional information please refer to http://education.TapToLearn.LiveOffice/faq/EHV634 (This link is being provided for informational/ educational purposes only.) The performance of this assay has not been clinically validated in patients less than 2 years old. 05/08/2022 2:27 PM EDT us Manolo HUFFMAN LAB BLOOD ORDERABLES Final Resul t [facility] [address] * Hm Colonoscopy (04/12/2018) Colonoscopy Normal Normal Historical Provider HEALTH MAINTENANCE Final Result * HPV mRNA E6/E7 (10/25/2016 9:30 AM EST) HPV mRNA E6/E7 Not Detected NOT DETECTED [facility] Comment: This test was performed using the APTIMA(R) HPV Assay ([employer] This assay detects E6/E7 viral messenger RNA (mRNA) from 14 high-risk HPV types (16,18,31,33,35,39,45,51, 52,56,58,59,66,68). For additional information please refer to: http://education.T-ZONE/faq/XGC684t0 (This link is being provided for informational/ educational purposes only.) Test Performed by [employer], [employer] [facility], [address] [place] [address] Naif Pereira M.D., Ph.D., Director of Laboratories , [facility] [id number] Please note: Effective 05/08/2016, HPV testing will be performed using [employer] APTIMA test which targets mRNA. Detecting mRNA instead of DNA, as in older methods, offers significant improvements in specificity. 10/25/2016 9:30 AM EST Hazel Corcoran MD HISTORICAL/NON ORDERABLE LABS Final Result [facility] [address] from Last 3 Months or Most Recently Relevant to Health Maintenance [place] [address] [place] [address] Commissioner Relationship Specialty Start Date End Date Jennifer Sultana NP [address] [place] [phone] PCP - General Family Medicine 07/28/24 Juanito Srinivasan Maintenance Mechanic Engine 05/10/23 Francisco J Palomino Maintenance Mechanic EngineYard Loader Operator 05/16/23 Fawad Vargas Maintenance Mechanic EngineYard Loader Operator 08/11/24
--- OUTSIDE RECORDS SUMMARY | 2025-08-03 20:18 | XMS_ITS | Encounter Summary ---
Author Organization [employer] Address [address] [facility] 7t [place] [address] Care Team Providers Care Curb Worker Name Role Phone Jennifer Sultana NP Primary Care Provider [phone] Reason for Visit * Reason Comments Med Refill Encounter Details Date Type Department Care Team ([facility] Contact Info) Description 02/19/2025 Refill [facility] MEDICINE [address] [place], [place] [phone] Jennifer Sultana NP [address] [place] [address] Spondylosis 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 Social [...] Description 09/18/2025 1:00 PM EST Office Visit [facility] OPTOMETRY [address] [place] [address] Isaiah, Meli, OD [address] [place] [address] documented as of this encounter Visit Diagnoses Diagnosis Spondylosis 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 documented in this encounter Additional Health Concerns Assessment Noted Time PHQ-9 Depression Total Score: 27 024 2:31 PM EST documented as of this encounter Care Teams Curb Worker Relationship Specialty Start Date End Date Jennifer Sultana NP [address] [place] [address] PCP - General Family Medicine 07/28/24 Juanito Srinivasan Fence Rider 05/10/23 Francisco J Palomino Fence RiderCollections Specialist 05/16/23 Fawad Vargas Fence RiderCollections Specialist 08/11/24 documented as of this encounter
--- OUTSIDE RECORDS SUMMARY | 2025-08-03 20:18 | XMS_ITS | Encounter Summary ---
Demographics Address [address] [facility] [address] [place] [address] Mobile Phone Home Phone Work Phone Email Address Preferred Language en Marital Status Protestant Affiliation Unknown Race White Ethnic Group Unknown Author Organization [employer] Address [address] [place] [address] 7t [place] [address] Care Team Providers Care Screen Handler Name Role Phone Ju Khan ANP Primary Care Provider [phone] Jennifer Sultana NURSES' ASSOCIATION COUNSELOR Primary Care Provider [phone] Reason for Visit * Reason Onset Date Comments PT-1 02/25/2024 Encounter Details Date Type Department Care Team ([facility] st Contact Info) Description 02/25/2024 Telephone [facility] MEDICINE 230 [place], [place] [phone] Ju Khan ANP [address] [place], [place] [phone] PT-1 Social History Tobacco Use Types Packs/Day [...] Y/N: Yes Provider name or facility name: [facility] Facility Address: [address] [place] [address] Escort needed: Y/N: No Do you have a wheelchair: Y/N: No If yes- Manual or electric: n/a Visits: 1x per week documented in this encounter Plan of Treatment Upcoming Encounters Date Type Department Care Team ([facility] Contact Info) Description 09/18/2025 1:00 PM EST Office Visit [facility] OPTOMET[facility] [address] [place] [address] Meli Colon, OD 230 [place] [address] documented as of this encounter Visit Diagnoses Not on filedocumented in this encounter Additional Health Concerns Assessment Noted Time PHQ-9 Depression Total Score: 9 12/01/19 23 10:12 AM EDT documented as of this encounter Care Teams Screen Handler Relationship Specialty Start Date End Date Ju Khan ANP [address] [place] [address] PCP - General Family Medicine 03/20/22 07/27/24 Jennifer Sultana NP 230 [place] [address] PCP - General Family Medicine 07/28/24 Juanito Srinivasan Sql Developer Dba 05/10/23 Francisco J Palomino Sql Developer DbaDrop Hammer Pile Driver Operator 05/16/23 Fawad Vargas Sql Developer DbaDrop Hammer Pile Driver Operator 08/11/24 documented as of this encounter
--- OUTSIDE RECORDS SUMMARY | 2025-08-03 20:18 | XMS_ITS | Encounter Summary ---
Author Organization [employer] Address [address] [facility] 7t [place] [address] Care Team Providers Care Bus Driver Name Role Phone Jennifer Sultana NP Primary Care Provider [phone] Encounter Details Date Type Department Care Team ([facility] Contact Info) Description 08/12/2024 Telephone [facility] MEDICINE 230 [place], [place] [phone] Jennifer Sultana NP 230 [place] [address] Social History Tobacco Use Types Packs/Day Years [...] Description 09/18/2025 1:00 PM EST Office Visit [facility] OPTOMETRY [address] [place] [address] Isaiah, Meli, OD [address] [place] [address] documented as of this encounter Visit Diagnoses Not on filedocumented in this encounter Additional Health Concerns Assessment Noted Time PHQ-9 Depression Total Score: 27 024 2:31 PM EST documented as of this encounter Care Teams Bus Driver Relationship Specialty Start Date End Date Jennifer Sultana NP [address] [place] [address] PCP - General Family Medicine 07/28/24 Juanito Srinivasan Geography Department Chair 05/10/23 Francisco J Palomino Geography Department ChairTrain Examiner 05/16/23 Fawad Vargas Geography Department ChairTrain Examiner 08/11/24 documented as of this encounter
--- OUTSIDE RECORDS SUMMARY | 2025-08-03 20:18 | XMS_ITS | Encounter Summary ---
Author Organization [employer] Address [address] [place] [address] 7t [place] [address] Care Team Providers Care Cloth Printer Helper Name Role Phone Jennifer Sultana NP Primary Care Provider [phone] Reason for Visit * Reason Comments Med Refill Encounter Details Date Type Department Care Team ([facility] Contact Info) Description 04/02/2025 Refill [facility] MEDICINE [address] [place], [place] [phone] Bree Love MD 230 [place], [place] [phone] Spondylosis 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 Social [...] your housing situation today? I have christiano cifuentse 03/30/[address] you li [...] Description 09/18/2025 1:00 PM EST Office Visit [facility] OPTOMETRY [address] [place] [address] Isaiah, Meli, OD 230 [place] [address] documented as of this encounter Visit Diagnoses Diagnosis Spondylosis 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 documented in this encounter Additional Health Concerns Assessment Noted Time PHQ-9 Depression Total Score: 27 024 2:31 PM EST documented as of this encounter Care Teams Cloth Printer Helper Relationship Specialty Start Date End Date Jennifer Sultana NP 230 [place] [address] PCP - General Family Medicine 07/28/24 Juanito Srinivasan Carpenter Foreman 05/10/23 Francisco J Palomino Carpenter ForemanReliner 05/16/23 Fawad Vargas Carpenter ForemanReliner 08/11/24 documented as of this encounter
--- OUTSIDE RECORDS SUMMARY | 2025-08-03 20:18 | XMS_ITS | Encounter Summary ---
Demographics Address [address] [facility] [address] [place] [address] Mobile Phone Home Phone Work Phone Email Address Preferred Language en Marital Status Taoist Affiliation Unknown Race White Ethnic Group Unknown Author Organization [employer] Address [address] [place] [address] [address] [place] [address] Care Team Providers Care Ore Puncher Name Role Phone Ju Khan ANP Primary Care Provider [phone] Jennifer Sultana NP Primary Care Provider [phone] Reason for Visit * Reason Onset Date Comments PT1 06/18/2023 Encounter Details Date Type Department Care Team ([facility] Contact Info) Description 06/18/2023 Telephone [facility] MEDICINE 230 [place], [place] [phone] Ju Khan ANP 230 [place], [place] [phone] PT1 Social History Tobacco Use Types Packs/Day [...] 2:19 PM EDT PT1 Name of facility: [facility] Specialty: Follow up with PCP Location: [address] [place] [address] Date: 07/02/2023 Time: 3:00 pm fax: [phone] wheelchair: NO Soft Tile Setter: NO Visits: Pt states for all future appts documented in this encounter Plan of Treatment Upcoming Encounters Date Type Department Care Team (Late st Contact Info) Description 09/18/2025 1:00 PM EST Office Visit [facility] OPTOMETRY [address] [place] [address] Meli Colon, OD 230 [place] [address] documented as of this encounter Visit Diagnoses Not on filedocumented in this encounter Additional Health Concerns Assessment Noted Time PHQ-9 Depression Total Score: 9 12/01/19 10:12 AM EDT documented as of this encounter Care Teams Ore Puncher Relationship Specialty Start Date End Date Ju Khan ANP 230 [place] [address] PCP - General Family Medicine 03/20/22 07/27/24 Jennifer Sultana NP [address] [place] [address] PCP - General Family Medicine 07/28/24 Juanito Srinivasan Senior Qa Engineer 05/10/23 Francisco J Palomino Senior Qa EngineerCrackling Press Operator 05/16/23 Fawad Vargas Senior Qa EngineerCrackling Press Operator 08/11/24 documented as of this encounter
--- OUTSIDE RECORDS SUMMARY | 2025-08-03 20:18 | XMS_ITS | Encounter Summary ---
Demographics Address [address] [facility] [address] [place] [address] Mobile Phone Home Phone Work Phone Email Address Preferred Language en Marital Status Taoism Affiliation Unknown Race White Ethnic Group Unknown Author Organization [employer] Address [address] [place] [address] [address] [place] [address] Care Team Providers Care Operators Teacher Name Role Phone Ju Khan ANP Primary Care Provider [phone] Jennifer Sultana NP Primary Care Provider [phone] Reason for Visit * Reason Onset Date Comments PT1 02/06/2024 Encounter Details Date Type Department Care Team ([facility] Contact Info) Description 02/06/2024 Telephone [facility] MEDICINE 230 [place], [place] [phone] Ju Khan ANP 230 [place], [place] [phone] PT1 Social History Tobacco Use Types Packs/Day [...] Y/N: Yes Provider name or facility name: [facility] Facility Address: [address] [place] [address] Escort needed: Y/N: Yes Do you have [...] Description 09/18/2025 1:00 PM EST Office Visit [facility] OPTOMETRY [address] [place] [address] Isaiah, Meli, OD [address] [place] [address] documented as of this encounter Visit Diagnoses Not on filedocumented in this encounter Additional Health Concerns Assessment Noted Time PHQ-9 Depression Total Score: 9 12/01/19 23 10:12 AM EDT documented as of this encounter Care Teams Operators Teacher Relationship Specialty Start Date End Date Ju Khan ANP [address] [place] [address] PCP - General Family Medicine 03/20/22 07/27/24 Jennifer Sultana NP 230 [place] [address] PCP - General Family Medicine 07/28/24 Juanito Srinivasan Electrical Logging Engineer 05/10/23 Francisco J Palomino Electrical Logging EngineerPhysical Sciences Instructor 05/16/23 Fawad Vargas Electrical Logging EngineerPhysical Sciences Instructor 08/11/24 documented as of this encounter
--- OUTSIDE RECORDS SUMMARY | 2025-08-03 20:18 | XMS_ITS | Encounter Summary ---
Demographics Address [address] [facility] [address] [place] [address] Mobile Phone Home Phone Work Phone Email Address Preferred Language en Marital Status Faith Affiliation Unknown Race White Ethnic Group Unknown Author Organization [employer] Address [address] [facility] 7t [place] [address] Care Team Providers Care School Occupational Therapist Name Role Phone Jennifer Sultana NP Primary Care Provider [phone] Encounter Details Date Type Department Care Team (Latest Contact Info) Description 08/03/2025 Travel Social History Tobacco Use Types Packs/Day [...] AM EDT documented as of this encounter Functional Status * Over the [...] Assessment Author Extremely difficult 08/03/2025 12:01 PM EST Jennyfer Alvarado ra, [place] documented as of this encounter Plan of Treatment Upcoming Encounters Date Type Department Care Team (Late st Contact Info) Description 09/18/2025 1:00 PM EST Office Visit [facility] OPTOMETRY [address] [place] [address] IsaiahMeli posey, OD 230 [place] [address] documented as of this encounter Visit Diagnoses Not on filedocumented in this encounter Additional Health Concerns Assessment Noted Time PHQ-9 Depression Total Score: 22 025 12:01 PM EST documented as of this encounter Care Teams School Occupational Therapist Relationship Specialty Start Date End Date Jennifer Sultana NP [address] [place] [address] PCP - General Family Medicine 07/28/24 Juanito Srinivasan Paintings Conservator 05/10/23 Francisco J Palomino Paintings ConservatorPetroleum Blending Plant Operator 05/16/23 Fawad Vargas Paintings ConservatorPetroleum Blending Plant Operator 08/11/24 documented as of this encounter
--- OUTSIDE RECORDS SUMMARY | 2025-08-03 20:18 | XMS_ITS | Encounter Summary ---
Demographics Address [address] [facility] [address] [place] [address] Mobile Phone Home Phone Work Phone Email Address Preferred Language en Marital Status Moravian Affiliation Unknown Race White Ethnic Group Unknown Author Organization [employer] Address [address] [place] [address] 7 [place] [address] Care Team Providers Care User Interface Designer Name Role Phone Ju Khan ANP Primary Care Provider [phone] Jennifer Sultana NP Primary Care Provider [phone] Reason for Visit * Reason Onset Date Comments PT1 06/15/2023 Encounter Details Date Type Department Care Team ([facility] Contact Info) Description 06/15/2023 Telephone [facility] MEDICINE 230 [place], [place] [phone] Ju Khan ANP 230 [place], [place] [phone] PT1 Social History Tobacco Use Types Packs/Day [...] Time: 2:45 Visits: 2 monthly Address: [address] [place] [address] Facility: [facility] Wheel Chair: no/cane Retort Furnace Operator Needed: no & Date: 07/17/2023 Time: 2:00 Visits: 3 monthly Address: [address] [place] [address] Facility: [facility] Wheel Chair: no/cane Retort Furnace Operator Needed: no documented in this encounter Plan of Treatment Upcoming Encounters Date Type Department Care Team ([facility] st Contact Info) Description 09/18/2025 1:00 PM EST Office Visit [facility] OPTOMETRY [address] [place] [address] Isaiah, Meli, OD 230 [place] [address] documented as of this encounter Visit Diagnoses Not on filedocumented in this encounter Additional Health Concerns Assessment Noted Time PHQ-9 Depression Total Score: 9 12/01/19 23 10:12 AM EDT documented as of this encounter Care Teams User Interface Designer Relationship Specialty Start Date End Date Ju Khan ANP [address] [place] [address] PCP - General Family Medicine 03/20/22 07/27/24 Jennifer Sultana NP [address] [place] [address] PCP - General Family Medicine 07/28/24 Juanito Srinivasan Clinical Team Manager 05/10/23 Francisco J Palomino Clinical Team ManagerHydraulic Auto Jack Mechanic 05/16/23 Fawad Vargas Clinical Team ManagerHydraulic Auto Jack Mechanic 08/11/24 documented as of this encounter
--- OUTSIDE RECORDS SUMMARY | 2025-08-03 20:18 | XMS_ITS | Encounter Summary ---
Author Organization [employer] Address [address] [place] [address] 7t [place] [address] Care Team Providers Care Printing Plate Maker Name Role Phone Jennifer Sultana NP Primary Care Provider [phone] Reason for Visit * Reason Comments Med Refill Encounter Details Date Type Department Care Team ([facility] Contact Info) Description 08/10/2024 Refill [facility] MEDICINE [address] [place], [place] [phone] Ju Khan, ANP [address] [place] [address] Spondylosis 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 Social [...] 1:00 PM EST Office Visit [facility] OPTOMETRY [address] [place] [address] Isaiah, Meli, OD [address] [place] [address] documented as of this encounter Visit Diagnoses Diagnosis Spondylosis 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 documented in this encounter Additional Health Concerns Assessment Noted Time PHQ-9 Depression Total Score: 27 024 2:31 PM EST documented as of this encounter Care Teams Printing Plate Maker Relationship Specialty Start Date End Date Jennifer Sultana NP [address] [place] [address] PCP - General Family Medicine 07/28/24 Juanito Srinivasan Oil Burner Servicer And Installer 05/10/23 Francisco J Palomino Oil Burner Servicer And InstallerSales Support Specialist 05/16/23 Fawad Vargas Oil Burner Servicer And InstallerSales Support Specialist 08/11/24 documented as of this encounter
--- OUTSIDE RECORDS SUMMARY | 2025-08-03 20:18 | XMS_ITS | Clinical Summary ---
Author Organization [facility] Address [address] [facility] [address] [place] [address] Phone Care Team Providers Care Qualitative Field Coordinator Name Role Phone Nick Tejada DO Primary Care Provider [phone] Social History Tobacco Use Types Packs/Day Years [...] file Medical Devices Not on file Insurance [facility] [employer] C3 ACO C3 ACO C3 ACO C3 ACO C3 ACO [place] [place] [address] [place] [address] [place] [address] [place] [address] [place] [address] C3 ACO Care Teams Qualitative Field Coordinator Relationship Specialty Start Date End Date iNck Tejada DO [address] [place] [address] PCP - General Cardiology 05/29/18 Additional Source Comments The information contained in this document represents components of the legal health record. It is not the complete legal health record.[facility]
--- OUTSIDE RECORDS SUMMARY | 2025-08-03 20:18 | XMS_ITS | Encounter Summary ---
Author Organization [employer] Address [address] [place] [address], [place] [address] Care Team Providers Care Equal Opportunity Assistant Name Role Phone Ju Khan ANP Primary Care Provider [phone] Jennifer Sultana MANAGER COMPLIANCE Primary Care Provider Reason for Visit * Reason Onset Date Comments PT1 03/09/2023 Encounter Details Date Type Department [facility] ([facility] Description 03/09/2023 Telephone [facility] MEDICINE 230 [place] [address] Ju Khan ANP 230 [place], [place] [phone] PT1 Social History Tobacco Use Types Packs/Day [...] PM EDT PT1 initiated for PSSP in [facility] will send pt a letter with instructions * Telephone Encounter - Lupis Jerome - 03/09/2023 1:13 PM EDT Tc from pt requesting a PT1 PT1 Date: TBD Time: TBD Address: [address] [place] [address] Specialty: radiculopathy Facility: [facility] Director Of Special Services: no Wheelchair: no, cane documented in this encounter Plan of Treatment Upcoming Encounters Date Type Department Care Team (Late st Contact Info) Description 09/18/2025 1:00 PM EST Office Visit [facility] OPTOMETRY [address] [place] [address] Isaiah, Megan, OD 230 [place] [address] documented as of this encounter Visit Diagnoses Not on filedocumented in this encounter Additional Health Concerns Assessment Noted Time PHQ-9 Depression Total Score: 9 12/01/19 23 10:12 AM EDT documented as of this encounter Care Teams Equal Opportunity Assistant Relationship Specialty Start Date End Date Ju Khan ANP 230 [place] [address] PCP - General Family Medicine 03/20/22 07/27/24 Jennifer Sultana NP 230 [place] [address] PCP - General Family Medicine 07/28/24 Juanito Srinivasan Solar Electric Practitioner 05/10/23 Francisco J Palomino Solar Electric PractitionerFinishing Operator 05/16/23 Fawad Vargas Solar Electric PractitionerFinishing Operator 08/11/24 documented as of this encounter
--- OUTSIDE RECORDS SUMMARY | 2025-08-03 20:18 | XMS_ITS | Encounter Summary ---
Demographics Address [address] [facility] [address] [place] [address] Mobile Phone Home Phone Work Phone Email Address Preferred Language en Marital Status Church Affiliation Unknown Race White Ethnic Group Unknown Author Organization [employer] Address [address] [place] [address] 7t [place] [address] Care Team Providers Care White Shoe Ragger Name Role Phone Ju Khan ANP Primary Care Provider [phone] Jennifer Sultana VIDEO COORDINATOR Primary Care Provider [phone] Reason for Visit * Reason Comments Med Refill Encounter Details Date Type Department Care Team (Late st Contact Info) Description 11/07/2023 Refill [facility] MEDICINE 230 [place], [place] [phone] Ju Khan ANP 230 [place] [address] Spondylosis 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 Social [...] Description 09/18/2025 1:00 PM EST Office Visit [facility] OPTOMETRY [address] [place] [address] IsaiahMeli posey, OD 230 [place] [address] documented as of this encounter Visit Diagnoses Diagnosis Spondylosis 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 documented in this encounter Additional Health Concerns Assessment Noted Time PHQ-9 Depression Total Score: 9 12/01/19 23 10:12 AM EDT documented as of this encounter Care Teams White Shoe Ragger Relationship Specialty Start Date End Date Ju Khan ANP 230 [place] [address] PCP - General Family Medicine 03/20/22 07/27/24 Jennifer Sultana NP 230 [place] [address] PCP - General Family Medicine 07/28/24 Juanito Srinivasan Cardiac Care Nurse 05/10/23 Francisco J Palomino Cardiac Care NurseProofing Machine Operator 05/16/23 Fawad Vargas Cardiac Care NurseProofing Machine Operator 08/11/24 documented as of this encounter
--- OUTSIDE RECORDS SUMMARY | 2025-08-03 20:18 | XMS_ITS | Encounter Summary ---
Demographics Address [address] [facility] [address] [place] [address] Mobile Phone Home Phone Work Phone Email Address Preferred Language en Marital Status Latter-Day Affiliation Unknown Race White Ethnic Group Unknown Author Organization [employer] Address [address] [place] [address] 7t [place] [address] Care Team Providers Care Blueprint Clerk Name Role Phone Ju Khan ANP Primary Care Provider [phone] Jennifer Sultana NP Primary Care Provider [phone] Reason for Visit * Reason Comments Med Refill Encounter Details Date Type Department Care Team ([facility] st Contact Info) Description 10/28/2023 Refill [facility] MEDICINE 230 [place], [place] [phone] Ju Khan ANP 230 [place], [place] [phone] Multiple joint pain Social History Tobacco Use [...] 09/18/2025 1:00 PM EST Office Visit [facility] OPTOMETRY 267 [place] [address] Isaiah, Meli, OD 230 [place] [address] documented as of this encounter Visit Diagnoses Diagnosis Multiple joint pain Pain in joint, multiple sites documented in this encounter Additional Health Concerns Assessment Noted Time PHQ-9 Depression Total Score: 9 12/01/19 10:12 AM EDT documented as of this encounter Care Teams Blueprint Clerk Relationship Specialty Start Date End Date Ju Khan ANP 230 [place] [address] PCP - General Family Medicine 03/20/22 07/27/24 Jennifer Sultana NP 230 [place] [address] PCP - General Family Medicine 07/28/24 Juanito Srinivasan Marine Electrician Helper 05/10/23 Francisco J Palomino Marine Electrician HelperSports Nutritionist 05/16/23 Fawad Vargas Marine Electrician HelperSports Nutritionist 08/11/24 documented as of this encounter
--- OUTSIDE RECORDS SUMMARY | 2025-08-03 20:18 | XMS_ITS | Encounter Summary ---
Demographics Address [address] [facility] [address] [place] [address] Mobile Phone Home Phone Work Phone Email Address Preferred Language en Marital Status Anabaptist Affiliation Unknown Race White Ethnic Group Unknown Author Organization [employer] Address [address] [place] [address] 7 [place] [address] Care Team Providers Care Surveillance Inspector Name Role Phone Ju Khan ANP Primary Care Provider [phone] Jennifer Sultana RESOURCE ENGINEER Primary Care Provider [phone] Reason for Visit * Reason Onset Date Comments Referral 06/19/2023 Encounter Details Date Type Department Care Team ([facility] Contact Info) Description 06/19/2023 Telephone [facility] MEDICINE 230 [place], [place] [phone] Ju Khan ANP 230 [place], [place] [phone] Referral Social History Tobacco Use Types Packs/Day [...] from pt requesting a new location for responder referral. Any questions, contact pt at [phone] documented in this encounter Plan of Treatment Upcoming Encounters Date Type Department Care Team (Late st Contact Info) Description 09/18/2025 1:00 PM EST Office Visit [facility] OPTOMETRY [address] [place], [place] [phone] Meli Colon, AVELINO 230 [place] [address] documented as of this encounter Visit Diagnoses Not on filedocumented in this encounter Additional Health Concerns Assessment Noted Time PHQ-9 Depression Total Score: 9 12/01/19 23 10:12 AM EDT documented as of this encounter Care Teams Surveillance Inspector Relationship Specialty Start Date End Date Ju Khan ANP 230 [place] [address] PCP - General Family Medicine 03/20/22 07/27/24 Jennifer Sultana NP 230 [place] [address] PCP - General Family Medicine 07/28/24 Juanito Srinivasan Laboratory Technician 05/10/23 Francisco J Palomino Laboratory TechnicianSlubber Machine Operator 05/16/23 Fawad Vargas Laboratory TechnicianSlubber Machine Operator 08/11/24 documented as of this encounter
--- OUTSIDE RECORDS SUMMARY | 2025-08-03 20:18 | XMS_ITS | Encounter Summary ---
Demographics Address [address] [facility] [address] [place] [address] Mobile Phone Home Phone Work Phone Email Address Preferred Language en Marital Status Protestant Affiliation Unknown Race White Ethnic Group Unknown Author Organization [employer] Address [address] [place] [address] 7 [place] [address] Care Team Providers Care Spray Cementer Name Role Phone Ju Khan ANP Primary Care Provider [phone] Jennifer Sultana NP Primary Care Provider [phone] Reason for Visit * Reason Onset Date Comments PT1 06/19/2023 Encounter Details Date Type Department Care Team ([facility] Contact Info) Description 06/19/2023 Telephone [facility] MEDICINE 230 [place], [place] [phone] Ju Khan ANP 230 [place], [place] [phone] PT1 Social History Tobacco Use Types Packs/Day [...] / denial letter via mail. PT-1 Request [id number] Authorized - [address] [address] Wrote called and spoke with pt regarding PT1. [facility] PT1 is good through October 2023 & [facility] is good through 01/2024. Pt just needed [facility] * Telephone Encounter - Lupis Cano - 06/19/2023 2:15 PM EDT Tc from pt requesting PT1 renewal Date: n/a Time: n/a Visits: n/a Address: [address] [place] [address] willi [place]SON [place] Facility: [facility] Wheel Chair: no, cane Sight Mounter Needed: no Date: 07/04 Time: 12 PM Visits: n/a Address: [address] [place] [address] Willi Wilson [place] Facility: [facility] G[facility] Wheel Chair: no, cane Sight Mounter Needed: no documented in this encounter Plan of Treatment Upcoming Encounters Date Type Department Care Team (Late st Contact Info) Description 09/18/2025 1:00 PM EST Office Visit [facility] OPTOMETRY [address] [place] [address] Meli Colon, OD 230 [place] [address] documented as of this encounter Visit Diagnoses Not on filedocumented in this encounter Additional Health Concerns Assessment Noted Time PHQ-9 Depression Total Score: 9 12/01/19 23 10:12 AM EDT documented as of this encounter Care Teams Spray Cementer Relationship Specialty Start Date End Date Ju Khan ANP 230 [place] [address] PCP - General Family Medicine 03/20/22 07/27/24 Jennifer Sultana NP 230 [place] [address] PCP - General Family Medicine 07/28/24 Juanito Srinivasan Medical Records Auditor 05/10/23 Francisco J Palomino Medical Records AuditorProduct Advisor 05/16/23 Fawad Vargas Medical Records AuditorProduct Advisor 08/11/24 documented as of this encounter
[2025-08-04 04:52] LABS: ~HepC Num1 13.21 S/CO (0.00-0.79); ~Hepatitis C Antibody Reactive (Nonreactive)
[2025-08-06 22:48] LABS: HCV Log PCR <1.18 NOT DETECTED Log IU/mL (NOT DETECTED); HepC Viral Load <15 NOT DETECTED IU/mL (NOT DETECTED)
== END 2025-08-03 12:02 | disposition home or self-care (01) ==
LOC: HO.HHCL 12:01
PROVIDERS: Internal Medicine Nephrology; PCP Nurse Practitioner Family; Visit Provider Nurse Practitioner Family
DX: Z11.59 Encounter for screening for other viral diseases (principal); I12.9 Hypertensive chronic kidney disease with stage 1 through stage 4 chronic kidney disease, or unspecified chronic kidney disease; N18.31 Chronic kidney disease, stage 3a; R79.89 Other specified abnormal findings of blood chemistry; E21.3 Hyperparathyroidism, unspecified; M25.561 Pain in right knee; M25.511 Pain in right shoulder; Z86.19 Personal history of other infectious and parasitic diseases
CPT/HCPCS: 36415; 80048; 80053; 80061; 82306; 83036; 83970; 84443; 86803; 87522

== ENCOUNTER 2025-08-05 | Outpatient (REF) | payer MEDICAID, SELFPAY ==
--- OUTSIDE RECORDS SUMMARY | 2025-08-26 09:24 | XMS_ITS | Encounter Summary ---
Demographics Address [address] [facility] [address] [place] [address] Mobile Phone Home Phone Work Phone Email Address Preferred Language en Marital Status Orthodox Affiliation Unknown Race White Ethnic Group Unknown Author Organization [employer] Address [address] [place] [address] 7 [place] [address] Care Team Providers Care Manager Drive Name Role Phone Ju Khan ANP Primary Care Provider [phone] Jennifer Sultana NP Primary Care Provider [phone] Reason for Visit * Reason Onset Date Comments PT1 06/19/2023 Encounter Details Date Type Department Care Team ([facility] Contact Info) Description 06/19/2023 Telephone [facility] MEDICINE 230 [place], [place] [phone] Ju Khan ANP 230 [place], [place] [phone] PT1 Social History Tobacco Use Types Packs/Day [...] / denial letter via mail. PT-1 Request [id number] Authorized - [address] [address] Wrote called and spoke with pt regarding PT1. [facility] GI PT1 is good through October 2023 & [facility] Pulmonology is good through 01/2024. Pt just needed [facility] * Telephone Encounter - Lupis Cano - 06/19/2023 2:15 PM EDT Tc from pt requesting PT1 renewal Date: n/a Time: n/a Visits: n/a Address: [address] [place] [address] willi WILSON [place] Facility: [facility] pulmonology Wheel Chair: no, cane Geriatric Case Manager Needed: no Date: 07/04 Time: 12 PM Visits: n/a Address: [address] [place] [address] Willi Wilson [place] Facility: [facility] Gastroenterology Wheel Chair: no, cane Geriatric Case Manager Needed: no documented in this encounter Plan of Treatment Upcoming Encounters Date Type Department Care Team (Late st Contact Info) Description 09/18/2025 1:00 PM EST Office Visit [facility] OPTOMETRY [address] [place] [address] Meli Colon, OD 230 [place] [address] documented as of this encounter Visit Diagnoses Not on filedocumented in this encounter Additional Health Concerns Assessment Noted Time PHQ-9 Depression Total Score: 9 12/01/19 23 10:12 AM EDT documented as of this encounter Care Teams Manager Drive Relationship Specialty Start Date End Date Ju Khan ANP 230 [place] [address] PCP - General Family Medicine 03/20/22 07/27/24 Jennifer Sultana NP 230 [place] [address] PCP - General Family Medicine 07/28/24 Juanito Srinivasan Zoning Engineer 05/10/23 Francisco J Palomino Zoning EngineerAd Writer 05/16/23 Fawad Vargas Zoning EngineerAd Writer 08/11/24 documented as of this encounter
--- OUTSIDE RECORDS SUMMARY | 2025-08-26 09:24 | XMS_ITS | Encounter Summary ---
Author Organization [employer] Address [address] [place] [address] 7[place] [address] Care Team Providers Care Fuel Technician Name Role Phone Ju Khan ANP Primary Care Provider [phone] Jennifer Sultana MANAGER PARKING Primary Care Provider [phone] Reason for Visit * Reason Onset Date Comments PT1 03/09/2023 Encounter Details Date Type Department Care Team ([facility] Contact Info) Description 03/09/2023 Telephone [facility] MEDICINE 230 [place] [address] Ju Khan ANP 230 [place], [place] [phone] PT1 Social History Tobacco Use Types Packs/Day [...] PM EDT PT1 initiated for PSSP in [facility] will send pt a letter with instructions * Telephone Encounter - Lupis Jerome - 03/09/2023 1:13 PM EDT Tc from pt requesting a PT1 PT1 Date: TBD Time: TBD Address: [address] [place] [address] Specialty: radiculopathy Facility: [facility] Dealer Compliance Representative: no Wheelchair: no, cane documented in this encounter Plan of Treatment Upcoming Encounters Date Type Department Care Team (Late st Contact Info) Description 09/18/2025 1:00 PM EST Office Visit [facility] OPTOMETRY [address] [place] [address] Isaiah, Megan, OD 230 [place] [address] documented as of this encounter Visit Diagnoses Not on filedocumented in this encounter Additional Health Concerns Assessment Noted Time PHQ-9 Depression Total Score: 9 12/01/19 23 10:12 AM EDT documented as of this encounter Care Teams Fuel Technician Relationship Specialty Start Date End Date Ju Khan ANP 230 [place] [address] PCP - General Family Medicine 03/20/22 07/27/24 Jennifer Sultana NP 230 [place] [address] PCP - General Family Medicine 07/28/24 Juanito Srinivasan Area Operations Manager 05/10/23 Francisco J Palomino Area Operations ManagerGround Instructor Basic 05/16/23 Fawad Vargas Area Operations ManagerGround Instructor Basic 08/11/24 documented as of this encounter
--- OUTSIDE RECORDS SUMMARY | 2025-08-26 09:24 | XMS_ITS | Encounter Summary ---
Author Organization [employer] Address [address] [place] [address] 7t [place] [address] Care Team Providers Care Ap Operator Name Role Phone Jennifer Sultana NP Primary Care Provider [phone] Reason for Visit * Reason Comments Med Refill Encounter Details Date Type Department Care Team ([facility] Contact Info) Description 04/02/2025 Refill [facility] MEDICINE 230 [place], [place] [phone] Bree Love MD 230 [place], [place] [phone] Spondylosis 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 Social [...] 1:00 PM EST Office Visit [facility] OPTOMETRY [address] [place] [address] Isaiah, Meli, OD 230 [place] [address] documented as of this encounter Visit Diagnoses Diagnosis Spondylosis 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 documented in this encounter Additional Health Concerns Assessment Noted Time PHQ-9 Depression Total Score: 27 024 2:31 PM EST documented as of this encounter Care Teams Ap Operator Relationship Specialty Start Date End Date Jennifer Sultana NP 230 [place] [address] PCP - General Family Medicine 07/28/24 Juanito Srinivasan Mysql Database Administrator 05/10/23 Francisco J Palomino Mysql Database AdministratorUmbrella Tipper Machine 05/16/23 Fawad Vargas Mysql Database AdministratorUmbrella Tipper Machine 08/11/24 documented as of this encounter
--- OUTSIDE RECORDS SUMMARY | 2025-08-26 09:24 | XMS_ITS | Encounter Summary ---
Author Organization [employer] Address [address] [place] [address] [address] Care Team Providers Care Filter Changing Technician Name Role Phone Jennifer Sultana NP Primary Care Provider [phone] Reason for Visit * Reason Onset Date Comments Referral 03/25/2025 Encounter Details Date Type Department Care Team ([facility] Contact Info) Description 03/25/2025 Telephone [facility] MEDICINE 230 [place], [place] [phone] Jennifer Sultana NP 230 [place] [address] Referral Social History Tobacco Use Types Packs/Day [...] pt who reports that female specialist at [facility] will not see her until she has completed an MRI of the spine. Pt states she is unsure of specialist's name but was advised to send MRI results to [phone]. Pt agrees to appt with Blue team provider next week as she needs time to arrange transportation. * Telephone Encounter - Dionisio Barragan - 03/25/2025 11:59 AM EDT Tc from pt requesting a referral for the MRI. For the spine. Any questions contact pt at [phone] documented in this encounter Plan of Treatment Upcoming Encounters Date Type Department Care Team (Late st Contact Info) Description 09/18/2025 1:00 PM EST Office Visit [facility] OPTOMETRY [address], [place] [phone] Isaiah, Meli, OD [address] [place] [address] documented as of this encounter Visit Diagnoses Not on filedocumented in this encounter Additional Health Concerns Assessment Noted Time PHQ-9 Depression Total Score: 27 024 2:31 PM EST documented as of this encounter Care Teams Filter Changing Technician Relationship Specialty Start Date End Date Jennifer Sultana NP 230 [place] [address] PCP - General Family Medicine 07/28/24 Juanito Srinivasan Biomedical Specialist 05/10/23 Francisco J Palomino Biomedical SpecialistMachine Cloth Measurer 05/16/23 Fawad Vargas Biomedical SpecialistMachine Cloth Measurer 08/11/24 documented as of this encounter
--- OUTSIDE RECORDS SUMMARY | 2025-08-26 09:24 | XMS_ITS | Encounter Summary ---
Author Organization [employer] Address [address] [place] [address] 7[place], [place] [address] Care Team Providers Care Electrical Parts Reconditioner Name Role Phone Jennifer Sultana NP Primary Care Provider [phone] Reason for Visit * Reason Onset Date Comments PT1 03/25/2025 Encounter Details Date Type Department Care Team ([facility] Contact Info) Description 03/25/2025 Telephone [facility] MEDICINE 230 [place] [address] Jennifer Sultana NP 230 [place] [address] PT1 Social History Tobacco Use Types Packs/Day [...] Y/N: Yes Provider name or facility name: [address] [place] [address] Escort needed: Y/N: Yes Do you have a wheelchair: Y/N: No Visits: (2x) documented in this encounter Plan of Treatment Upcoming Encounters Date Type Department Care Team (Late st Contact Info) Description 09/18/2025 1:00 PM EST Office Visit [facility] OPTOMETRY [address] [place] [address] Meli Colon, OD 230 [place] [address] documented as of this encounter Visit Diagnoses Not on filedocumented in this encounter Additional Health Concerns Assessment Noted Time PHQ-9 Depression Total Score: 27 024 2:31 PM EST documented as of this encounter Care Teams Electrical Parts Reconditioner Relationship Specialty Start Date End Date Jennifer Sultana NP 230 [place] [address] PCP - General Family Medicine 07/28/24 Juanito Srinivasan Potline Monitor 05/10/23 Francisco J Palomino Potline MonitorJob Setter 05/16/23 Fawad Vargas Potline MonitorJob Setter 08/11/24 documented as of this encounter
--- OUTSIDE RECORDS SUMMARY | 2025-08-26 09:24 | XMS_ITS | Clinical Summary ---
Author Organization [address] [facility] Address [address] [place] [address] Phone Care Team Providers Care Line Therapist Name Role Phone Jennifer Sultana PRATIK Primary Care Provider [phone] Allergies Active Allergy Reactions Criticality Noted Date [...] PM EST Office Visit [facility] [place] [address] [facility] 250 [place] [phone] Artie Goodrich, LEENA [facility] 250 [place] [address] Health Maintenance Due Date Last Done Comments [...] of Health Screening 08/19/2024 Depression Screening 08/27/2024 COVID-19 Vaccine ( season) 2025 07/28/2024, 12/18/2022, [...] topic Insurance MEDICAID - [place] Care Teams Line Therapist Relationship Specialty Start Date End Date Jennifer Sultana FNP [address] [place] [id number] PCP - General Nurse Practitioner 08/18/24
--- OUTSIDE RECORDS SUMMARY | 2025-08-26 09:24 | XMS_ITS | Encounter Summary ---
Author Organization [employer] Address [address] [place] [address] 7 [place] [address] Care Team Providers Care Supervising Architect Name Role Phone Ju Khan ANP Primary Care Provider [phone] Jennifer Sultana NP Primary Care Provider [phone] Reason for Visit * Reason Onset Date Comments PT1 02/06/2024 Encounter Details Date Type Department Care Team ([facility] Contact Info) Description 02/06/2024 Telephone [facility] MEDICINE 230 [place], [place] [phone] Ju Khan ANP 230 [place], [place] [phone] PT1 Social History Tobacco Use Types Packs/Day [...] Y/N: Yes Provider name or facility name: [facility] Facility Address: [address] [place] [address] Escort needed: Y/N: Yes Do you have [...] Description 09/18/2025 1:00 PM EST Office Visit [facility] OPTOMETRY [address] [place] [address] Isaiah, Meli, OD [address] [place] [address] documented as of this encounter Visit Diagnoses Not on filedocumented in this encounter Additional Health Concerns Assessment Noted Time PHQ-9 Depression Total Score: 9 12/01/19 23 10:12 AM EDT documented as of this encounter Care Teams Supervising Architect Relationship Specialty Start Date End Date Ju Khan ANP 230 [place] [address] PCP - General Family Medicine 03/20/22 07/27/24 Jennifer Sultana NP 230 [place] [address] PCP - General Family Medicine 07/28/24 Juanito Srinivasan Technology Lead 05/10/23 Francisco J Palomino Technology LeadOil Pumper 05/16/23 Fawad Vargas Technology LeadOil Pumper 08/11/24 documented as of this encounter
--- OUTSIDE RECORDS SUMMARY | 2025-08-26 09:24 | XMS_ITS | Encounter Summary ---
Author Organization [employer] Address [address] [facility] 7t [place] [address] Care Team Providers Care Billing Representative Name Role Phone Jennifer Sultana NP Primary Care Provider [phone] Reason for Visit * Reason Comments Med Refill Encounter Details Date Type Department Care Team ([facility] Contact Info) Description 02/19/2025 Refill [facility] MEDICINE [address] [place], [place] [phone] Jennifer Sultana NP 230 [place] [address] Spondylosis 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 Social [...] 1:00 PM EST Office Visit [facility] OPTOMETRY [address] [place] [address] Isaiah, Meli, OD 230 [place] [address] documented as of this encounter Visit Diagnoses Diagnosis Spondylosis 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 documented in this encounter Additional Health Concerns Assessment Noted Time PHQ-9 Depression Total Score: 27 024 2:31 PM EST documented as of this encounter Care Teams Billing Representative Relationship Specialty Start Date End Date Jennifer Sultana NP 230 [place] [address] PCP - General Family Medicine 07/28/24 Juanito Srinivasan Asphalt Surface Heater Operator 05/10/23 Francisco J Palomino Asphalt Surface Heater OperatorTheatre Professor 05/16/23 Fawad Vargas Asphalt Surface Heater OperatorTheatre Professor 08/11/24 documented as of this encounter
--- OUTSIDE RECORDS SUMMARY | 2025-08-26 09:24 | XMS_ITS | Encounter Summary ---
Author Organization [employer] Address [address] [place] [address] Care Team Providers Care Infrastructure Software Engineer Name Role Phone Ju Khan ANP Primary Care Provider [phone] Jennifer Sultana ROCKET ASSEMBLY OPERATOR Primary Care Provider [phone] Reason for Visit * Reason Comments Med Refill Encounter Details Date Type Department Care Team (Late Contact Info) Description 05/23/2023 Refill [facility] MEDICINE 230 [place] [address] Ju Khan ANP 230 [place] [address] Multiple joint pain Social History Tobacco Use [...] PM EST Office Visit [facility] OPTOMETRY [address] [place], [place] [phone] Meli Colon OD 230 [place] [address] documented as of this encounter Visit Diagnoses Diagnosis Multiple joint pain Pain in joint, multiple sites documented in this encounter Additional Health Concerns Assessment Noted Time PHQ-9 Depression Total Score: 9 12/01/19 23 10:12 AM EDT documented as of this encounter Care Teams Infrastructure Software Engineer Relationship Specialty Start Date End Date Ju Khan ANP 230 [place] [address] PCP - General Family Medicine 03/20/22 07/27/24 Jennifer Sultana NP [address] [place] [address] PCP - General Family Medicine 07/28/24 Juanito Srinivasan Truck Loader And Unloader 05/10/23 Francisco J Palomino Truck Loader And UnloaderTicket Dispatcher 05/16/23 Fawad Vargas Truck Loader And UnloaderTicket Dispatcher 08/11/24 documented as of this encounter
--- OUTSIDE RECORDS SUMMARY | 2025-08-26 09:24 | XMS_ITS | Encounter Summary ---
Demographics Address [address] [facility] [address] [place] [address] Mobile Phone Home Phone Work Phone Email Address Preferred Language en Marital Status Shinto Affiliation Unknown Race White Ethnic Group Unknown Author Organization [employer] Address [address] [place] [address] 7 [place] [address] Care Team Providers Care Practice Administrator Name Role Phone Ju Khan ANP Primary Care Provider [phone] Jennifer Sultana NP Primary Care Provider [phone] Reason for Visit * Reason Onset Date Comments PT1 06/18/2023 Encounter Details Date Type Department Care Team ([facility] Contact Info) Description 06/18/2023 Telephone [facility] MEDICINE 230 [place], [place] [phone] Ju Khan ANP 230 [place], [place] [phone] PT1 Social History Tobacco Use Types Packs/Day [...] Infirmary Specialty: Follow up with PCP Location: [address] [place] [address] Date: 07/02/2023 Time: 3:00 pm fax: [phone] wheelchair: NO Kiln Puller: NO Visits: Pt states for all future appts documented in this encounter Plan of Treatment Upcoming Encounters Date Type Department Care Team (Late st Contact Info) Description 09/18/2025 1:00 PM EST Office Visit [facility] OPTOMETRY [address] [place] [address] Meli Colon, OD 230 [place] [address] documented as of this encounter Visit Diagnoses Not on filedocumented in this encounter Additional Health Concerns Assessment Noted Time PHQ-9 Depression Total Score: 9 12/01/19 10:12 AM EDT documented as of this encounter Care Teams Practice Administrator Relationship Specialty Start Date End Date Ju Khan ANP 230 [place] [address] PCP - General Family Medicine 03/20/22 07/27/24 Jennifer Sultana NP 230 [place] [address] PCP - General Family Medicine 07/28/24 Juanito Srinivasan Launch Steward 05/10/23 Francisco J Palomino Launch StewardReporting Process Consultant 05/16/23 Fawad Vargas Launch StewardReporting Process Consultant 08/11/24 documented as of this encounter
--- OUTSIDE RECORDS SUMMARY | 2025-08-26 09:24 | XMS_ITS | Encounter Summary ---
Author Organization [employer] Address [address] [place] [address] 7 [place] [address] Care Team Providers Care Divisional Human Resources Director Name Role Phone Ju Khan ANP Primary Care Provider [phone] Jennifer Sultana UNCRATER Primary Care Provider [phone] Reason for Visit * Reason Onset Date Comments PT-1 06/11/2024 Encounter Details Date Type Department Care Team ([facility] st Contact Info) Description 06/11/2024 Telephone [facility] MEDICINE 230 [place], [place] [phone] Ju Khan ANP 230 [place], [place] [phone] PT-1 Social History Tobacco Use Types Packs/Day [...] Y/N: Yes Provider name or facility name: [facility] (Dr. Philippe Evans) Facility Address: [address] [place] [address] Escort needed: Y/N: Yes Do you have a wheelchair: Y/N: No If yes- Manual or electric: (Uses walker and cane) Visits: 3 times a month - Patient calling requesting PT1 Home Address verified: Y/N: Yes Provider name or facility name: [facility] Facility Address: [address] [place] [address] Escort needed: Y/N: Yes Do you have a wheelchair: Y/N: No If yes- Manual or electric: Walker and Cane Visits: 4 a month - Patient calling requesting PT1 Home Address verified: Y/N: Yes Provider name or facility name: Ramez John MD Facility Address: [address] [place] [address] Escort needed: Y/N: Yes Do you have a wheelchair: Y/N: No If yes- Manual or electric: Walker and cane Visits: 3 monthly documented in this encounter Plan of Treatment Upcoming Encounters Date Type Department Care Team (Late st Contact Info) Description 09/18/2025 1:00 PM EST Office Visit [facility] OPTOMETRY [address] [place] [address] Meli Colon, OD 230 [place] [address] documented as of this encounter Visit Diagnoses Not on filedocumented in this encounter Additional Health Concerns Assessment Noted Time PHQ-9 Depression Total Score: 3 04/04/20 1:48 PM EDT documented as of this encounter Care Teams Divisional Human Resources Director Relationship Specialty Start Date End Date Ju Khan ANP 230 [place], [place] [phone] PCP - General Family Medicine 03/20/22 07/27/24 Jennifer Sultana NP [address] [place] [address] PCP - General Family Medicine 07/28/24 Juanito Srinivasan Sql Database Administrator 05/10/23 Francisco J Palomino Sql Database AdministratorCrematory Operator 05/16/23 Fawad Vargas Sql Database AdministratorCrematory Operator 08/11/24 documented as of this encounter
--- OUTSIDE RECORDS SUMMARY | 2025-08-26 09:24 | XMS_ITS | Encounter Summary ---
Author Organization [employer] Address [address] [place] [address] Care Team Providers Care Septic Tank Cleaner Name Role Phone Ju Khan Primary Care Provider [phone] Jennifer Sultana NP Primary Care Provider [phone] Reason for Referral * Consultation (STAT) - Closed Specialty Diagnoses / Procedures [facility]erred To Contact Orthopaedic Surgery Diagnoses Other closed fracture of proximal end of right tibia, initial encounter Fry cyst, right Ju Khan ANP 230 [place] [address] Phone: tel: fax: [facility] [address] [place] [address] [address] [place] [address] Phone: tel: Referral ID Status Reason Start Date Expiration Date V isits Requested Visits Authorized [id number] Closed Specialty Services Required 05/05/2024 05/05/2025 3 3 Reason for Visit * Reason Comments Med Refill Encounter Details Date Type Department Care Team (Late st Contact Info) Description 07/03/2024 Refill [facility] MEDICINE [address] [place], [place] [phone] Ju Khan ANP [address] [place] [address] Other closed fracture of proximal end of [...] Description 09/18/2025 1:00 PM EST Office Visit [facility] OPTOMETRY [address] [place] [address] Isaiah, Meli, OD [address] [place] [address] Scheduled Referrals Name Type Priority Associated Diagnoses [...] documented as of this encounter Care Teams Septic Tank Cleaner Relationship Specialty Start Date End Date uJ Khan ANP 230 [place] [address] PCP - General Family Medicine 03/20/22 07/27/24 Jennifer Sultana NP [address] [place] [address] PCP - General Family Medicine 07/28/24 Juanito Srinivasan Timber Packer 05/10/23 Francisco J Palomino Timber PackerRoads Superintendent 05/16/23 Fawad Vargas Timber PackerRoads Superintendent 08/11/24 documented as of this encounter
--- OUTSIDE RECORDS SUMMARY | 2025-08-26 09:24 | XMS_ITS | Encounter Summary ---
Demographics Address [address] [facility] [address] [place] [address] Mobile Phone Home Phone Work Phone Email Address Preferred Language en Marital Status Faith Affiliation Unknown Race White Ethnic Group Unknown Author Organization [employer] Address [address] [place] [address] 7 [place] [address] Care Team Providers Care Passenger Rate Clerk Name Role Phone Ju Khan ANP Primary Care Provider [phone] Jennifer Sultana NP Primary Care Provider [phone] Reason for Visit * Reason Onset Date Comments PT1 06/15/2023 Encounter Details Date Type Department Care Team ([facility] Contact Info) Description 06/15/2023 Telephone [facility] MEDICINE 230 [place], [place] [phone] Ju Khan ANP 230 [place], [place] [phone] PT1 Social History Tobacco Use Types Packs/Day [...] Time: 2:45 Visits: 2 monthly Address: [address] [place] [address] Facility: [facility] Wheel Chair: no/cane Bleacher Operator Needed: no & Date: 07/17/2023 Time: 2:00 Visits: 3 monthly Address: [address] [place] [address] Facility: [facility] Wheel Chair: no/cane Bleacher Operator Needed: no documented in this encounter Plan of Treatment Upcoming Encounters Date Type Department Care Team ([facility] st Contact Info) Description 09/18/2025 1:00 PM EST Office Visit [facility] OPTOMETRY [address] [place] [address] Isaiah, Meli, OD 230 [place] [address] documented as of this encounter Visit Diagnoses Not on filedocumented in this encounter Additional Health Concerns Assessment Noted Time PHQ-9 Depression Total Score: 9 12/01/19 23 10:12 AM EDT documented as of this encounter Care Teams Passenger Rate Clerk Relationship Specialty Start Date End Date Ju Khan ANP [address] [place] [address] PCP - General Family Medicine 03/20/22 07/27/24 Jennifer Sultana NP [address] [place] [address] PCP - General Family Medicine 07/28/24 Juanito Srinivasan Book Mender 05/10/23 Francisco J Palomino Book MenderHot Metal Charger 05/16/23 Fawad Vargas Book MenderHot Metal Charger 08/11/24 documented as of this encounter
--- OUTSIDE RECORDS SUMMARY | 2025-08-26 09:24 | XMS_ITS | Encounter Summary ---
Author Organization [employer] Address [address] [place] [address] [place], [place] [address] Care Team Providers Care Medical Staff Assistant Name Role Phone Jennifer Sultana NP Primary Care Provider [phone] Reason for Visit * Reason Onset Date Comments PT1 07/17/2025 Encounter Details Date Type Department Care Team ([facility] Contact Info) Description 07/17/2025 Telephone [facility] MEDICINE [address] [place] [address] Jennifer Sultana NP [address] [place] [address] PT1 Social History Tobacco Use Types Packs/Day [...] encounter Miscellaneous Notes * Telephone Encounter - Ila Diaz - 07/17/2025 2:04 PM EST Patient calling requesting PT1 Home Address verified: Y/N: Yes Provider name or facility name: [facility] [address] (4 weekly ) [facility] Address: [address] [place] [address] (2 month) [facility] Address: 230 [facility] (2 month) [facility] (2 month) Address: [address] [place] [address] [facility] (2 month) Address [address] [facility] [address] [facility] (1 month) Address 2 [facility] ([address] [place] [address] (2month) Address: [address] [facility] [place] [address] (1month) Address: [address] [facility] [address] [address] Escort needed: Y/N: Yes Do you have a wheelchair: no (Use a walker) documented in this encounter Plan of Treatment Upcoming Encounters Date Type Department Care Team ([facility] st Contact Info) Description 09/18/2025 1:00 PM EST Office Visit [facility] OPTOMETRY [address] [place] [address] Meli Colon, OD [address] [place] [address] documented as of this encounter Visit Diagnoses Not on filedocumented in this encounter Additional Health Concerns Assessment Noted Time PHQ-9 Depression Total Score: 27 024 2:31 PM EST documented as of this encounter Care Teams Medical Staff Assistant Relationship Specialty Start Date End Date Jennifer Sultana NP [address] [place] [address] PCP - General Family Medicine 07/28/24 Juanito Srinivasan Twister Tender 05/10/23 Francisco J Palomino Twister TenderLivestock Farmers 05/16/23 Fawad Vargas Twister TenderLivestock Farmers 08/11/24 documented as of this encounter
--- OUTSIDE RECORDS SUMMARY | 2025-08-26 09:24 | XMS_ITS | Encounter Summary ---
Author Organization [employer] Address [address] [place] [address] 7 [place] [address] Care Team Providers Care Sand Molder Name Role Phone Ju Khan ANP Primary Care Provider [phone] Jennifer Sultana NP Primary Care Provider [phone] Reason for Visit * Reason Comments Med Refill Encounter Details Date Type Department Care Team ([facility] st Contact Info) Description 07/15/2024 Refill [facility] MEDICINE [address] [place], [place] [phone] Ju Khan ANP [address] [place], [place] [phone] Multiple joint pain Social History Tobacco Use [...] 1:00 PM EST Office Visit [facility] OPTOMETRY [address] [place] [address] IsaiahMeli posey, OD [address] [place] [address] documented as of this encounter Visit Diagnoses Diagnosis Multiple joint pain Pain in joint, multiple sites documented in this encounter Additional Health Concerns Assessment Noted Time PHQ-9 Depression Total Score: 3 04/04/20 24 1:48 PM EDT documented as of this encounter Care Teams Sand Molder Relationship Specialty Start Date End Date Ju Khan ANP [address] [place] [address] PCP - General Family Medicine 03/20/22 07/27/24 Jennifer Sultana NP [address] [place] [address] PCP - General Family Medicine 07/28/24 Juanito Srinivasan Directory Operator 9/14/23 Francisco J Palomino Directory OperatorClothes Wringer 05/16/23 Fawad Vargas Directory OperatorClothes Wringer 08/11/24 documented as of this encounter
--- OUTSIDE RECORDS SUMMARY | 2025-08-26 09:24 | XMS_ITS | Encounter Summary ---
Author Organization [employer] Address [address] [place] [address] [address] Care Team Providers Care Crusher Loader Operator Name Role Phone Jennifer Sultana NP Primary Care Provider [phone] Reason for Visit * Reason Onset Date Comments Reschedule 08/22/2024 Encounter Details Date Type Department Care Team ([facility] Contact Info) Description 08/22/2024 Telephone [facility] MEDICINE [address] [place] [address] Jennifer Sultana NP [address] [place] [address] Reschedule Social History Tobacco Use Types Packs/Day [...] Visit [facility] OPTOMETRY [address] [place] [address] Meli Colon, OD [address] [place] [address] documented as of this encounter Visit Diagnoses Not on filedocumented in this encounter Additional Health Concerns Assessment Noted Time PHQ-9 Depression Total Score: 27 024 2:31 PM EST documented as of this encounter Care Teams Crusher Loader Operator Relationship Specialty Start Date End Date Jennifer Sultana NP [address] [place] [address] PCP - General Family Medicine 07/28/24 Juanito Srinivasan Landscape Designer 05/10/23 Francisco J Palomino Landscape DesignerChild Protection Specialist 05/16/23 Fawad Vargas Landscape DesignerChild Protection Specialist 08/11/24 documented as of this encounter
--- OUTSIDE RECORDS SUMMARY | 2025-08-26 09:24 | XMS_ITS | Encounter Summary ---
Demographics Address [address] [facility] [address] [place] [address] Mobile Phone Home Phone Work Phone Email Address Preferred Language en Marital Status Moravian Affiliation Unknown Race White Ethnic Group Unknown Author Organization [employer] Address [address] [place] [address] 7t [place] [address] Care Team Providers Care Building Construction Inspector Name Role Phone Ju Khan ANP Primary Care Provider [phone] Jennifer Sultana TYPESETTER APPRENTICE Primary Care Provider [phone] Reason for Visit * Reason Onset Date Comments PT-1 02/25/2024 Encounter Details Date Type Department Care Team ([facility] st Contact Info) Description 02/25/2024 Telephone [facility] MEDICINE 230 [place], [place] [phone] Ju Khan ANP 230 [place], [place] [phone] PT-1 Social History Tobacco Use Types Packs/Day [...] Y/N: Yes Provider name or facility name: [facility] Facility Address: [address] [place] [address] Escort needed: Y/N: No Do you have a wheelchair: Y/N: No If yes- Manual or electric: n/a Visits: 1x per week documented in this encounter Plan of Treatment Upcoming Encounters Date Type Department Care Team ([facility] Contact Info) Description 09/18/2025 1:00 PM EST Office Visit [facility] OPTOMETRY [address] [place] [address] Meli Colon, OD 230 [facility] [place] [address] documented as of this encounter Visit Diagnoses Not on filedocumented in this encounter Additional Health Concerns Assessment Noted Time PHQ-9 Depression Total Score: 9 12/01/19 23 10:12 AM EDT documented as of this encounter Care Teams Building Construction Inspector Relationship Specialty Start Date End Date Ju Khan ANP 230 [place] [address] PCP - General Family Medicine 03/20/22 07/27/24 Jennifer Sultana NP 230 [place] [address] PCP - General Family Medicine 07/28/24 Juanito Srinivasan Adobe Layer 05/10/23 Francisco J Palomino Adobe LayerShipping Room Supervisor 05/16/23 Fawad Vargas Adobe LayerShipping Room Supervisor 08/11/24 documented as of this encounter
--- OUTSIDE RECORDS SUMMARY | 2025-08-26 09:24 | XMS_ITS | Encounter Summary ---
Demographics Address [address] [facility] [address] [place] [address] Mobile Phone Home Phone Work Phone Email Address Preferred Language en Marital Status Buddhist Affiliation Unknown Race White Ethnic Group Unknown Author Organization [employer] Address [address] [place] [address] 7 [place] [address] Care Team Providers Care Medical Receptionist Medical Assistant Name Role Phone Ju Khan ANP Primary Care Provider [phone] Jennifer Sultana RN COMMUNITY Primary Care Provider [phone] Reason for Visit * Reason Onset Date Comments Referral 06/19/2023 Encounter Details Date Type Department Care Team ([facility] Contact Info) Description 06/19/2023 Telephone [facility] MEDICINE 230 [place], [place] [phone] Ju Khan ANP 230 [place], [place] [phone] Referral Social History Tobacco Use Types Packs/Day [...] from pt requesting a new location for cable assembler referral. Any questions, contact pt at [phone] documented in this encounter Plan of Treatment Upcoming Encounters Date Type Department Care Team (Late st Contact Info) Description 09/18/2025 1:00 PM EST Office Visit [facility] OPTOMETRY [address] [place], [place] [phone] Meli Colon, AVELINO [address] [place] [address] documented as of this encounter Visit Diagnoses Not on filedocumented in this encounter Additional Health Concerns Assessment Noted Time PHQ-9 Depression Total Score: 9 12/01/19 23 10:12 AM EDT documented as of this encounter Care Teams Medical Receptionist Medical Assistant Relationship Specialty Start Date End Date Ju Khan ANP [address] [place] [address] PCP - General Family Medicine 03/20/22 07/27/24 Jennifer Sultana NP [address] [place] [address] PCP - General Family Medicine 07/28/24 Juanito Srinivasan Violin Mechanic 05/10/23 Francisco J Palomino Violin MechanicJourneyman Molder 05/16/23 Fawad Vargas Violin MechanicJourneyman Molder 08/11/24 documented as of this encounter
--- OUTSIDE RECORDS SUMMARY | 2025-08-26 09:25 | XMS_ITS | Encounter Summary ---
Author Organization [employer] Address [address] [place] [address] [address], [place] [address] Care Team Providers Care Professional Nursing Assistant Name Role Phone Jennifer Sultana NP Primary Care Provider Reason for Visit * Reason Onset Date Comments Appointment Request 08/18/2025 Results 08/18/2025 Encounter Details Date Type Department Care Team ([facility] Contact Info) Description 08/18/2025 Telephone [facility] [address] [place] [address] Jennifer Sultana NP [address] [place] [address] Appointment Request; Results Social History Tobacco Use Types Packs/Day Years [...] Telephone Encounter - Goldie Taylor RN - 08/19/2025 1:20 PM EST Call returned to Lauri at [facility] who states that pt is concerned about lab results. Asking if pt hasa f/u scheduled with pcp to discuss results. Also states that pt want to bring a copy of testing pcp ordered to be sent to [place]. Recommended that pt request this at testing site for US and MR lumbar spine. Advised message will be sent to pcp to request interpretation of lab results. * Telephone Encounter - Ila Diaz - 08/18/2025 4:08 PM EST Tc from lauri from [facility] case work requesting follow up appointment for discuss lab worker for the pt Please contact at lauri at [phone] documented in this encounter Plan of Treatment Upcoming Encounters Date Type Department Care Team (Late st Contact Info) Description 09/18/2025 1:00 PM EST Office Visit [facility] [address] [place] [address] Meli Colon, OD [address] [place] [address] documented as of this encounter Visit Diagnoses Not on filedocumented in this encounter Additional Health Concerns Assessment Noted Time PHQ-9 Depression Total Score: 22 025 12:01 PM EST documented as of this encounter Care Teams Professional Nursing Assistant Relationship Specialty Start Date End Date Jennifer Sultana NP [address] [place] [address] PCP - General Family Medicine 07/28/24 Juanito Srinivasan Beam Dyer Recessed Vat 05/10/23 Francisco J Palomino Beam Dyer Recessed VatLaw Enforcement Officer 05/16/23 Fawad Vargas Beam Dyer Recessed VatLaw Enforcement Officer 08/11/24 documented as of this encounter
--- OUTSIDE RECORDS SUMMARY | 2025-08-26 09:25 | XMS_ITS | Encounter Summary ---
Author Organization [employer] Address [address] [facility] [address] [place] [address] Care Team Providers Care Supervisor Customer Complaint Service Name Role Phone Jennifer Sultana NP Primary Care Provider [phone] Encounter Details Date Type Department Care Team ([facility] Contact Info) Description 08/12/2024 Telephone [facility] [address] [place], [place] [phone] Jennifer Sultana NP [address] [place] [address] Social History Tobacco Use Types Packs/Day Years [...] 1:00 PM EST Office Visit [facility] [address] [place] [address] Isaiah, Meli, OD [address] [place] [address] documented as of this encounter Visit Diagnoses Not on filedocumented in this encounter Additional Health Concerns Assessment Noted Time PHQ-9 Depression Total Score: 27 024 2:31 PM EST documented as of this encounter Care Teams Supervisor Customer Complaint Service Relationship Specialty Start Date End Date Jennifer Sultana NP [address] [place] [address] PCP - General Family Medicine 07/28/24 Juanito Srinivasan Embroidery Patternmaker 05/10/23 Francisco J Palomino Embroidery PatternmakerLatin American Studies Professor 05/16/23 Fawad Vargas Embroidery PatternmakerLatin American Studies Professor 08/11/24 documented as of this encounter
--- OUTSIDE RECORDS SUMMARY | 2025-08-26 09:25 | XMS_ITS | Encounter Summary ---
Author Organization [employer] Address [address] [facility] [address] [place] [address] Care Team Providers Care Grinder Operator Automatic Name Role Phone Jennifer Sultana NP Primary Care Provider [phone] Reason for Visit * Reason Comments Med Refill Encounter Details Date Type Department Care Team ([facility] Contact Info) Description 08/10/2025 Refill [facility] [address] [place], [place] [phone] Jennifer Sultana NP [address] [place] [address] Spondylosis 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 Social [...] Description 09/18/2025 1:00 PM EST Office Visit [facility] [address] [place] [address] Isaiah, Meli, OD [address] [place] [address] documented as of this encounter Visit Diagnoses Diagnosis Spondylosis 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 documented in this encounter Additional Health Concerns Assessment Noted Time PHQ-9 Depression Total Score: 22 025 12:01 PM EST documented as of this encounter Care Teams Grinder Operator Automatic Relationship Specialty Start Date End Date Jennifer Sultana NP [address] [place] [address] PCP - General Family Medicine 07/28/24 Juanito Srinivasan Cafeteria Aide 05/10/23 Francisco J Palomino Cafeteria AidePier Runner 05/16/23 Fawad Vargas Cafeteria AidePier Runner 08/11/24 documented as of this encounter
--- OUTSIDE RECORDS SUMMARY | 2025-08-26 09:25 | XMS_ITS | Encounter Summary ---
Author Organization [employer] Address [address] [place] [address] [address] [address] Care Team Providers Care Direct Care Staffer Name Role Phone Ju Khan ANP Primary Care Provider [phone] Jennifer Sutlana ACUTE SPECIALIST Primary Care Provider [phone] Reason for Visit * Reason Onset Date Comments Med Refill 03/22/2023 Encounter Details Date Type Department Care Team ([facility] st Contact Info) Description 03/22/2023 Telephone [facility] [address] [place], [place] [phone] Ju Khan ANP [address] [place], [place] [phone] Med Refill Social History Tobacco Use Types [...] 1:00 PM EST Office Visit [facility] [address] [place], [place] [phone] Meli Colon, OD [address] [place] [address] documented as of this encounter Visit Diagnoses Not on filedocumented in this encounter Additional Health Concerns Assessment Noted Time PHQ-9 Depression Total Score: 9 12/01/19 10:12 AM EDT documented as of this encounter Care Teams Direct Care Staffer Relationship Specialty Start Date End Date Ju Khan ANP [address] [place] [address] PCP - General Family Medicine 03/20/22 07/27/24 Jennifer Sultana NP [address] [place] [address] PCP - General Family Medicine 07/28/24 Juanito Srinivasan Service Engine Repairer 05/10/23 Francisco J Palomino Service Engine RepairerClay Burner 05/16/23 Fawad Vargas Service Engine RepairerClay Burner 08/11/24 documented as of this encounter
--- OUTSIDE RECORDS SUMMARY | 2025-08-26 09:25 | XMS_ITS | Clinical Summary ---
Author Organization [facility] Address [address] [facility] [address] [place] [address] Phone Care Team Providers Care Corporate Treasurer Name Role Phone Nick Tejada DO Primary Care Provider [phone] Social History Tobacco Use Types Packs/Day Years [...] file Medical Devices Not on file Insurance [facility] C3 ACO C3 ACO C3 ACO C3 ACO [employer] [place] [place] [address] [place] [address] [place] [address] [place] [address] [place] [address] [place] [address] C[employer] A[employer] Care Teams Corporate Treasurer Relationship Specialty Start Date End Date Nick Tejada DO [address] [place] [id number] PCP - General Cardiology 05/29/18 Additional Source Comments The information contained in this document represents components of the legal health record. It is not the complete legal health record.[facility]
--- OUTSIDE RECORDS SUMMARY | 2025-08-26 09:25 | XMS_ITS | Clinical Summary ---
Author Organization [employer] Address [address] [place] [address] 7 [place] [address] Care Team Providers Care Paper Bag Inspector Name Role Phone Jennifer Sultana NP Primary Care Provider [phone] Allergies Active Allergy Reactions Criticality Noted Date [...] Every 4-6 hours as needed (wheezing/SOB). Active furosemide (Lasix) 20 MG tablet Take 1 tablet (20 mg) by mouth in the morning. 90 tablet 1 07/17/20 25 4:19 PM EST Active senna (Senokot) 8.6 MG tablet TAKE [...] in the morning. 90 tablet 1 Active cholecalciferol VITAMIN D (Vitamin D-3) 50 MCG (2000 UT) capsule Take 1 capsule (50 mcg) by mouth Once per day. 30 capsule 11 025 2025 Active ibuprofen 600 MG tablet Take 1 tablet (600 mg) by mouth every 8 (eight) hours if needed for mild pain for up to 60 doses. 30 tablet 1 Active metroNIDAZOLE (Metrogel) 1 % gel Apply topically Once per day. 100 g 2 025 2025 Active pregabalin (Lyrica) 75 MG capsuleIndication s:Spondylosis 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 Take 1 capsule (75 mg) by mouth 3 times daily. 90 capsule 2 Active Suboxone 12-3 MG per sublingual film DISSOLVE 2 FILMS UNDER THE TONGUE DAILY 022 2024 Discontinued(T herapy completed) cyclobenzaprine (Flexeril) 5 MG tabletIndications :Chronic pain syndrome TAKE 1 TABLET BY MOUTH AT BEDTIME NEEDED FOR PAIN 30 tablet 1 024 2024 Discontinued(T herapy completed) fluticasone (Flonase) 50 MCG/ACT nasal sprayIndications: Chronic [...] tablet 3 07/17/20 25 4:19 PM EST 025 2024 Discontinued(T herapy completed) docusate sodium (Colace) 100 MG capsule TAKE [...] capsule 07/17/20 25 4:19 PM EST 025 2024 Discontinued(R eorder (will not trigger notification to Pharmacy)) rosuvastatin (Crestor) 10 MG tabletIndications :Mixed hyperlipidemia TAKE 1 TABLET BY MOUTH EVERY MORNING 90 tablet 1 07/17/20 25 4:19 PM EST 025 2024 Discontinued(R eorder (will not trigger notification to Pharmacy)) Dextromethorphan- guaiFENesin 10-100 MG/5ML liquid Take 5 mL by mouth if needed in the morning and at bedtime (cough) for up to 20 days. 100 mL 1 025 2024 Active Problems Problem Noted Date Diagnosed Date Encounter for screening mamm ogram for malignant neoplasm of breast 08/06/2025 Assessment & Plan (08/06/2025 3:53 PM EST): Healthcare maintenance 08/06/2025 Assessment & Plan (08/06/2025 3:53 PM EST): Orders: BI Mammogram Screening Tomosynthesis Bilateral; Future Edema 08/06/2025 Assessment & Plan (08/06/2025 3:53 PM EST): Orders: POCT Urinalysis History of hepatitis C 08/03/2025 Assessment & Plan (08/06/2025 3:53 PM EST): Orders: Comprehensive Metabolic Panel; Future Hepatitis C Antibody with Reflex to HCV, RNA, Quantitative, Real-Time PCR; Future Hyperparathyroidism 08/03/2025 Assessment & Plan (08/06/2025 3:53 PM EST): Orders: Vitamin D, 25-Hydroxy, Total, Immunoassay; Future PTH, Intact And Calcium; Future Constipation 08/03/2025 Assessment & Plan (08/06/2025 3:53 PM EST): Orders: docusate sodium (Colace) 100 MG capsule; Take 1 capsule (100 mg) by mouth 2 times daily. Acute pain of right shoulder 08/03/2025 Assessment & Plan (08/06/2025 3:53 PM EST): Orders: XR Shoulder 2+ Views Right; Future Referral to Orthopaedic Surgery; Future Rosacea 08/03/2025 Assessment & Plan (08/06/2025 3:53 PM EST): Abdominal bloating 08/03/2025 Assessment & Plan (08/06/2025 3:53 PM EST): Orders: US Abdomen Complete; Future Generalized edema 08/03/2025 Assessment & Plan (08/06/2025 3:53 PM EST): Normal breast exam 10/07/2024 Dietary counseling 08/17/2024 Assessment & Plan (08/06/2025 3:53 PM EST): Assessment & Plan (08/17/2024 12:32 PM EST): Encouraged minimizing processed foods and increasing whole foods particularly vegetables Exercise counseling 08/17/2024 Assessment & Plan (08/06/2025 3:53 PM EST): Assessment & Plan (08/17/2024 12:34 PM [...] unremarkable. (Cardiology note 2024) Assessment & Plan (08/06/2025 3:53 PM EST): Orders: Lipid Panel, Standard; Future Hemoglobin A1c; Future Assessment & Plan (08/17/2024 12:31 PM EST): Stable at goal today Uterine leiomyoma 04/16/2024 Thoracic back pain 04/16/2024 FILIPE (obstructive sleep apnea) 04/16/2024 Assessment & Plan (08/06/2025 3:53 PM EST): History of tubal ligation 04/16/2024 Family history of malignant neoplasm of breast 0 04/16/2024 Family history of alcoholism 04/16/2024 Class 1 obesity 04/16/2024 Blindness of left eye 04/16/2024 Anorexia nervosa, restricting type 04/16/2024 Abdominal pain 03/19/2023 Assessment & Plan (08/06/2025 3:53 PM EST): endoscopy. A. Duodenum, biopsy: Duodenal mucosa [...] stenosis 03/19/2023 Depression 03/19/2023 Assessment & Plan (08/06/2025 3:53 PM EST): Precordial chest pain 03/19/2023 Spondylosis 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 myelopa thy 03/19/2023 Tubular adenoma 03/19/2023 Overview (08/31/2023): Colonoscopy upcoming 09/2023 COPD (chronic obstructive pulmonary disease) Assessment & Plan (08/06/2025 3:53 PM EST): Chronic constipation 12/18/2022 Abnormal TSH 08/25/2022 Assessment & Plan (08/06/2025 3:53 PM EST): Orders: TSH W/Reflex to FT4; Future Deviated septum 08/25/2022 Hypergammaglobulinemia 08/25/2022 Moderate persistent asthma without complication 08/25/2022 Multiple joint pain 08/25/2022 Multiple nodules of lung 08/25/2022 Muscle pain 08/25/2022 Opioid dependence 08/25/2022 Assessment & Plan (08/17/2024 12:35 PM EST): Stable on suboxone Pulmonary emphysema 08/25/2022 Assessment & Plan (08/06/2025 3:53 PM EST): Assessment & Plan (08/17/2024 12:32 PM EST): Reassuring exam today, continue prn nebulizer Mixed hyperlipidemia 08/25/2022 Assessment & Plan (08/06/2025 3:53 PM EST): Orders: rosuvastatin (Crestor) 10 MG tablet; [...] kidney disease (CMS/HCC) 2021 Assessment & Plan (08/06/2025 3:53 PM EST): Orders: Referral to Nephrology; Future Visual impairment 08/25/2022 Degeneration of lumbar intervertebral disc 08/10 Assessment & Plan (11/30/2022 1:39 PM EDT): She has upcoming ortho consultation and PT Lumbar radiculopathy 08/10/2021 Assessment & Plan (08/06/2025 3:53 PM EST): Orders: MR Lumbar Spine w/o Contrast; Future Chronic rhinitis 12/20/2018 Stress incontinence of urine 12/20/2018 Overview (08/03/2025): 2024- in care with urology Assessment & Plan (08/06/2025 3:53 PM EST): Iron deficiency anemia due to chronic blood loss 12/18/2018 Tubular adenoma of colon 12/18/2018 Blood in urine 09/27/2018 Abnormal MRI, breast 05/07/2018 Chronic pain syndrome 02/04/2018 Assessment & Plan (08/06/2025 3:53 PM EST): Orders: MR Lumbar Spine w/o Contrast; [...] 11/06/2016 Pure hypercholesterolemia 09/22/2016 Assessment & Plan (08/06/2025 3:53 PM EST): Chronic hepatitis C (CMS/HCC) 09/08/2016 Recurrent major depression in partial remission 09/08/2016 Former smoker 09/08/2016 Assessment & Plan (08/06/2025 3:53 PM EST): Resolved Problems Problem Noted Date Diagnosed Date Resolved Date Encounter for immunization 07/28/2024 0 04/07/2025 Tearfulness 06/12/2024 04/07/2025 Assessment & Plan (06/12/2024 3:26 PM EDT): Pt bursted into tears and is seemingly overwhelmed. Denies following with a therapist. -referred to behavioral health 06/12/24 SOB (shortness of breath) 03/19/2023 08 /07/2025 Assessment & Plan (08/17/2024 12:32 PM EST): Echo ordered Body aches 08/25/2022 04/07/2025 Acute exacerbation of chroni c obstructive airways disease (CMS/HCC) 08/25/2022 11/30/2022 Perichondritis of pinna 05/17/2018 04/0 01/2023 Encounters Date Type Department Care Team Description 08/18/2025 Telephone [facility] [place] [address] Jennifer Sultana NP Appointment Request; Results 08/10/2025 Refill [facility] [place] [address] Jennifer Sultana NP Spondylosis 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 08/10/2025 Refill [facility] [place] [phone] Jennifer Sultana NP Spondylosis 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 08/03/2025 10:45 AM EST Office Visit [facility] [place] [address] Jennifer Sultana NP Healthcare maintenance (Primary Dx); Encounter for screening mammogram for malignant neoplasm of breast; Essential hypertension; Stress incontinence of urine; Abdominal pain, unspecified abdominal location; Chronic pain syndrome; Lumbar radiculopathy; Chronic obstructive pulmonary disease, unspecified COPD type (CMS/HCC) (HCC); Pulmonary emphysema (HCC); FILIPE (obstructive sleep apnea); Former smoker; Depression, unspecified depression type; Mixed hyperlipidemia; Pure hypercholesterolemia; Abnormal TSH; Dietary counseling; Exercise counseling; Stage 3a chronic kidney disease (CMS/HCC) (HCC); History of hepatitis C; Hyperparathyroidism (CMS/HCC); Constipation, unspecified constipation type; Acute pain of right shoulder; Rosacea; Abdominal bloating; Generalized edema; Encounter for immunization; Edema, unspecified type 08/03/2025 Orders Only GENERIC EXTERNAL DATA DEPARTMENT Provider, Generic External Data 08/03/2025 Travel 08/02/2025 Travel 07/27/2025 Refill [facility] [place] [address] Jennifer Sultana NP 07/22/2025 Patient Outreach [address] [address] Jennifer Sultana NP Pre-visit Planning (SDOH screening was completed on 03/30/2025) 07/20/2025 Patient Outreach [address] [address] Jennifer Sultana NP Care Coordination ([facility] outreach for SDOH PT-1 and food needs-referral completed /) 07/17/[address] [phone] Jennifer Sultana NP Referral 07/17/[address] [address] Jennifer Sultana NP PT1 07/14/2025 Orders Only [facility] External Provider, [facility] 07/13/2025 Refill [facility] [address] [place] [phone] Jennifer Sultana NP 07/10/[address] [address] Jennifer Sultana NP Spondylosis 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; Mixed hyperlipidemia 07/08/2025 10:40 AM EST Office Visit [facility] [address] [place] [phone] Name, MD Dionisio COPD exacerbation ([facility]) ([facility]) (Primary Dx); Cough in adult patient 07/08/2025 Travel 06/28/2025 Refill [facility] [address] [place] [phone] Jennifer Sultana NP 06/16/2025 Refill [facility] [address] [place] [phone] Jennifer Sultana NP Spondylosis 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 06/10/[address] [address] Jennifer Sultana NP Referral 06/03/[address] [address] Jennifer Sultana NP Durable Medical Equipment 05/31/2025 Refill [facility] [address] [place], [place] [phone] Jennifer Sultana NP from Last 3 Months Immunizations Immunization Administration [...] Description 09/18/2025 1:00 PM EST Office Visit [facility] [address] [place], [place] [phone] Isaiah, Meli, OD [address] [place] [address] Health Maintenance Due Date Last Done Comments [...] 10/25/2026 10/25/2016, 03/04/2010 Lipid Panel 08/03/2030 08/03/2025, 09/0 01/2024, 02/01/2023, Additional history exists Zoster Vaccines [...] Name Priority Date/Time Associated Diagnosis Comments XR SHOULDER 2+ VIEWS RIGHT Routine 08/05/2025 3:45 PM EST Acute pain of right shoulder HEPATITIS C VIRAL RNA, QUANTITATIVE, REAL-TIME PCR Routine 08/03/2025 12:07 PM EST BASIC METABOLIC PANEL Routine 08/03/2025 12:07 PM EST PTH, INTACT WITHOUT CALCIUM Routine 08/03/2025 12:07 PM EST HEPATITIS C AB W/REFL TO HCV RNA, QN, PCR Routine 08/03/2025 12:07 PM EST History of hepatitis C VITAMIN D,25-OH,TOTAL,IA Routine 08/03/2025 12:07 PM EST [...] 1 VIEW Routine 07/14/2025 11:05 PM EST US VENOUS DUPLEX LE RT Routine 07/14/2025 6:38 PM EST ECG 12-LEAD Routine 07/08/2025 11:10 [...] Relevant to Health Maintenance Results * XR Shoulder 2+ Views Right (08/05/2025 3:45 PM EST) Anatomical Region Laterality Modality Upper Extremities, Shoulder Right Radi ographic Imaging 08/05/2025 3:45 PM EST Narrative 08/05/2025 3:59 PM EST [address] [address] XRay Report Signed Patient: Cherri Nash MR#: [id number] : 1965 Acct:[id number] Age/Sex: 60 / F ADM Date: 08/03/25 Loc: HO[facility] Attending Dr: Jennifer Sultana GENERATOR OPERATOR STRAIGHT BEVEL GEAR Ordering Physician: Jennifer Sultana NP Date of Service: 08/05/25 Procedure(s): XR shoulder RT min 2V Accession Number(s): [id number] cc: Jennifer Sultana GENERATOR OPERATOR STRAIGHT BEVEL GEAR Reason for Exam: right shoulder pain, limited rom EXAMINATION: XR SHOULDER, RIGHT CLINICAL INFORMATION: right shoulder pain, limited rom COMPARISON: None available. TECHNIQUE: Three views of the right shoulder. FINDINGS: No acute fracture, dislocation or suspicious bony lesion is identified. Bone mineralization is decreased. No abnormal soft tissue calcification XR/XR shoulder RT min 2V IMPRESSION: No radiographic evidence of acute osseous findings. Electronically signed by: Manuel Menjivar MD 08/05/2025 03:56 PM EST RP Dictated By: Manuel Menjivar MD Signed By: <Electronically signed by Manuel Menjivar MD in OV> 08/05/25 1556 DD/ 1545 TD/TT: 08/05/25 1549 Janitor Custodian: TERRY Procedure Note Donotuseinterpreter, Image - 08/05/[address] [address] XRay Report Signed Patient: Cherri Nash JMR#: [id number] : 1965Acct:[id number] Age/Sex: 60 / FADM Date: 08/03/25 Loc: HO.[facility] Attending Dr: Jennifer Sultana GENERATOR OPERATOR STRAIGHT BEVEL GEAR Ordering Physician: Jennifer Sultana NP Date of Service: 08/05/25 Procedure(s): XR shoulder RT min 2V Accession Number(s): [id number] cc: Jennifer Sultana NP Reason for Exam: right shoulder pain, limited rom EXAMINATION: XR SHOULDER, RIGHT CLINICAL INFORMATION: right shoulder pain, limited rom COMPARISON: None available. TECHNIQUE: Three views of the right shoulder. FINDINGS: No acute fracture, dislocation or suspicious bony lesion is identified. Bone mineralization is decreased. No abnormal soft tissue calcification XR/XR shoulder RT min 2V IMPRESSION: No radiographic evidence of acute osseous findings. Electronically signed by: Manuel Menjivar MD 08/05/2025 03:56 PM EST RP Dictated By: Manuel Menjivar MD Signed By: <Electronically signed by Manuel Menjivar MD in OV> 08/05/25 1556 DD/ 1545 TD/TT: 08/05/25 1549 Janitor Custodian: TERRY us Jennifer Sultana NP IMG XR PROCEDURES Final Result * Vitamin D, 25-Hydroxy, Total, Immunoassay (08/03/2025 12:07 PM EST) Vitamin D 25-OH Total 35.3 >30 ng/mL [facility] Comment: Health Based Reference Values*< 20 ng/mL [id number] ng/mL Insufficient> 30 ng/mL Sufficient*Micki ALFARO. N [...] NP LAB BLOOD ORDERABLES Final Resul t [facility] [address] [place] [phone] [phone] * TSH W/Reflex to FT4 (08/03/2025 12:07 PM EST) TSH reflex Free T4 1.73 0.32 - 4.0 uIU/mL [facility] Blood Venous blood specimen / Unknown 08/03/2025 12:07 PM EST 08/03/2025 1:35 PM EST Jennifer Sultana GENERATOR OPERATOR STRAIGHT BEVEL GEAR LAB BLOOD ORDERABLES Final Resul t Performing Organization Address [facility] Phone Number [facility] [address] [place] [phone] * Hepatitis C Viral RNA, Quantitative, Real-Time PCR (08/03/2025 12:07 PM EST) [facility] Hepatitis C Viral Load <15 NOT DETECTED NOT DETECTED IU/mL [facility] HCV Log PCR <1.18 NOT DETECTED NOT DETECTED Log IU/mL [facility] Comment:For additional infor matrhonda, please refer tohttp://education.Upower/faq/TKY57k9(This link is being provided for informational/educational purposes only.)THIS TEST WAS PERFORMED AT:[facility] [place] [phone] NICHOLE MD 08/03/2025 12:0 7 PM EST 08/04/2025 1:45 PM EST Jennifer Sultana GENERATOR OPERATOR STRAIGHT BEVEL GEAR LAB BLOOD ORDERABLES Final Resul t Performing Organization Address [facility] de Phone Number [facility] [address] [place] [phone] * (ABNORMAL) Hepatitis C Antibody with Reflex to HCV, RNA, Quantitative, Real- Time PCR (08/03/2025 12:07 PM EST) [facility] Hepatitis C Antibody Reactive( A) Nonreactive [facility] Comment:Presumptive evidence of antibodies to HCV. Blood Venous blood specimen / Unknown 08/03/2025 12:07 PM EST 08/03/2025 1:35 PM EST us Jennifer Sultana GENERATOR OPERATOR STRAIGHT BEVEL GEAR LAB BLOOD ORDERABLES Final Resul t Performing Organization Address [facility] Co de Phone Number [facility] [address] [place] [phone] * (ABNORMAL) PTH, Intact Without Calcium (08/03/2025 12:07 PM EST) Parathyroid Hormone, Intact 310.8(H) 8.7 - 77.1 pg/mL [facility] 08/03/2025 12:0 7 PM EST 08/03/2025 1:35 PM EST us Generic External Data Provider LAB BLOOD ORDERAB LES Final Result Performing Organization Address [facility] Co pr Phone Number [facility] [address] [place] [phone] * Hemoglobin A1c (08/03/2025 12:07 PM EST) Hemoglobin A1c 5.6 <6.0 % [facility] Comment:Hemoglobin A1C Refer ence Range Adults: 4.8 - 6.0 % Non diabetic: < 6.0 % Goal: < 7.0 %Additional Action Suggested: > 8.0 %Note: Hemoglobin A1c results are invalid for patients with abnormal amounts of HbF. Blood transfusions may impact the HbA1c concentration in the patient sample. Estimated Average Glucose 114 mg/dL [facility] Comment:eAG = Estimated ave rage glucose which is %A1C expressed asaverage glucose, using the formula of the N4E-RnxuacfRuajmsk Glucose study (ADAG), Diabetes Care, Vol.31,#8,Mar. 2007 Blood Venous blood specimen / Unknown 08/03/2025 12:07 PM EST 08/03/2025 1:35 PM EST us Jennifer Sultana GENERATOR OPERATOR STRAIGHT BEVEL GEAR LAB BLOOD ORDERABLES Final Resul t Performing Organization Address [facility] Co de Phone Number [facility] [address] [place] [phone] * (ABNORMAL) Lipid Panel, Standard (08/03/2025 12:07 PM EST) Triglycerides 181(H) <150 mg/dL [facility] Comment:Desirable Triglyceri de: less than 150 mg/dLBorderline High Triglyceride 150-199 mg/dLHigh Triglyceride: 200-499 mg/dLVery High Triglyceride: greater than or equal to 5OO mg/dL Cholesterol 182 <200 mg/dL [facility] Comment:Desirable Cholestero l: less than 200 mg/dLBorderline High Cholesterol: 200-239 mg/dLHigh Cholesterol: greater than 239 mg/dL LDL Cholesterol Calculated 108(H) <100 mg/dL [facility] Comment:Desirable LDL: less than 100 mg/dLNear Optimal/Above Optimal LDL: 110- 129 mg/dLBorderline High LDL: 130-159 mg/dLHigh LDL: 160-189 mg/dLVery High LDL: greater than or equal to 190 mg/dL HDL Cholesterol 38(L) >40 mg/dL [facility] Comment:Desirable HDL: great er than 40 mg/dL Note: This HDL assay may give artificially low results in patients with liver disease. Blood Venous blood specimen / Unknown 08/03/2025 12:07 PM EST 08/03/2025 1:35 PM EST us Jennifer Sultana NP LAB BLOOD ORDERABLES Final Resul t [facility] [address] [place] [phone] * (ABNORMAL) Comprehensive Metabolic Panel (08/03/2025 12:07 PM EST) Sodium 143 135 - 145 mmol/L [facility] Potassium 3.7 3.3 - 5.1 mmol/L [facility] Chloride 104 96 - 108 mmol/L [facility] Carbon Dioxide 32(H) 22 - 29 mmol/L [facility] Anion Gap 11(L) 12 - 20 [facility] Urea Nitrogen (BUN) 10 9 - 16 mg/dL [facility] Creatinine, Serum 1.50(H) 0.5 - 1.4 mg/dL [facility] Estimated Glomerular Filt Rate 36 [facility] Comment:Chronic Kidney Disea se: Estimated GFR < 60 mL/min/1.65e7Xsxhzx Kidney Disease: Estimated GFR < 15 mL/min/1.73m2 Glucose 102 60 - 115 mg/dL [facility] Calcium 9.8 8.4 - 10.2 mg/dL [facility] Bilirubin, Total 0.1 0.0 - 1.0 mg/dL [facility] Aspartate Amino Transferase 18 5 - 31 U/L [facility] Alanine Aminotransferase 16 0 - 31 U/L [facility] Total Protein 7.6 6.5 - 8.0 g/dL [facility] Albumin Level 3.9 3.5 - 5.0 g/dL [facility] Alkaline Phosphatase 107 39 - 117 U/L [facility] Blood Venous blood specimen / Unknown 08/03/2025 12:07 PM EST 08/03/2025 1:35 PM EST us Jennifer Sultana GENERATOR OPERATOR STRAIGHT BEVEL GEAR LAB BLOOD ORDERABLES Final Resul t [facility] [address] [place] [phone] * (ABNORMAL) Basic Metabolic Panel (08/03/2025 12:07 PM EST) Sodium 143 135 - 145 mmol/L [facility] Potassium 3.6 3.3 - 5.1 mmol/L [facility] Chloride 104 96 - 108 mmol/L [facility] Carbon Dioxide 33(H) 22 - 29 mmol/L [facility] Anion Gap 10(L) 12 - 20 [facility] Urea Nitrogen (BUN) 11 9 - 16 mg/dL [facility] Creatinine, Serum 1.47(H) 0.5 - 1.4 mg/dL [facility] Estimated Glomerular Filt Rate 37 [facility] Comment:Chronic Kidney Disea se: Estimated GFR < 60 mL/min/[id number] Kidney Disease: Estimated GFR < 15 mL/min/1.73m2 Glucose 100 60 - 115 mg/dL [facility] Calcium 9.9 8.4 - 10.2 mg/dL [facility] 08/03/2025 12:0 7 PM EST 08/03/2025 1:35 PM EST Dionisio Funes MD LAB BLOOD ORDERABLES Final Resul t [facility] [address] [place] [phone] * (ABNORMAL) POCT Urinalysis (08/03/2025 11:53 [...] PM EST Narrative 07/14/2025 11:06 PM EST [address] [address] XRay Report Signed Patient: Cherri Nash MR#: [id number] : 1965 Acct:[id number] Age/Sex: 60 / F ADM Date: 07/14/25 Loc: HO.ED Attending Dr: Ordering Physician: Mahi Rodrigez PA-C Date of Service: 07/14/25 Procedure(s): XR chest 1V Accession Number(s): [id number] cc: Jennifer Sultana NP; Mahi Rodrigez PA-C Reason for Exam: sob CLINICAL HISTORY: sob 1 view chest x-ray Comparison: CT/REG/ND/SR - CT CHEST WO IV CON - [...] in OV> 07/14/252305 DD/ 04 TD/TT: 07/14/252304 Janitor Custodian: Procedure Note Donotuseinterpreter, Image - 07/14/2025 [place] [address] XRay Report Signed Patient: Cherri Nash JMR#: [id number] : 1965Acct:[id number] Age/Sex: 60 / FADM Date: 07/14/25 Loc: HO.ED Attending Dr: Ordering Physician: Mahi Rodrigez PA-C Date of Service: 07/14/25 Procedure(s): XR chest 1V Accession Number(s): [id number] cc: Jennifer Sultana NP; Mahi Rodrigez PA-C Reason for Exam: sob CLINICAL HISTORY: sob 1 view chest x-ray Comparison: CT/REG/ND/SR - CT CHEST WO IV CON - [...] in OV> 07/14/252305 DD/ 04 TD/TT: 07/14/252304 Janitor Custodian: us [facility] External Provider IMG XR PROCEDURES Edited Result - Final * US VENOUS DUPLEX LE RT (07/14/2025 6:38 PM EST) Anatomical Region Laterality Modality Abdomen Ultrasound 07/14/2025 6:38 PM EST Narrative 08/04/2025 9:46 AM EST [address] [address] Ultrasound Report Signed Patient: Cherri Nash MR#: [id number] : 1965 Acct:[id number] Age/Sex: 60 / F ADM Date: 07/14/25 Loc: .ED Attending Dr: Ordering Physician: Bobbi Ríos Date of Service: 07/14/25 Procedure(s): US venous duplex LE RT Accession Number(s): [id number] cc: Jennifer Sultana GENERATOR OPERATOR STRAIGHT BEVEL GEAR; Bobbi Ríos Reason for Exam: swelling CLINICAL HISTORY: rt leg pain Venous duplex ultrasound right lower extremity Comparison: None provided Findings: The visualized deep veins are fully compressible with normal Doppler color flow and spectral tracings. No popliteal cyst. IMPRESSION: 1. Negative for right lower extremity deep vein thrombosis. This document has been electronically signed by: Volodymyr Avelar MD on 07/14/2025 18:38:24 Dictated By: Volodymyr Avelar MD Signed By: <Electronically signed by Volodymyr Avelar MD in OV> 08/04/2545 DD/ 37 TD/TT: 07/14/251837 Janitor Custodian: Procedure Note Michelleter, Image - 08/04/[address] [address] Ultrasound Report Signed Patient: Cherri Nash JMR#: [id number] : 1965Acct:[id number] Age/Sex: 60 / FADM Date: 07/14/25 Loc: HO.ED Attending Dr: Ordering Physician: Bobbi Ríos Date of Service: 07/14/25 Procedure(s): US venous duplex LE RT Accession Number(s): [id number] cc: Jennifer Sultana GENERATOR OPERATOR STRAIGHT BEVEL GEAR; Bobbi Ríos Reason for Exam: swelling CLINICAL HISTORY: rt leg pain Venous duplex ultrasound right lower extremity Comparison: None provided Findings: The visualized deep veins are fully compressible with normal Doppler color flow and spectral tracings. No popliteal cyst. IMPRESSION: 1. Negative for right lower extremity deep vein thrombosis. This document has been electronically signed by: Volodymyr Avelar MD on 07/14/2025 18:38:24 Dictated By: Volodymyr Avelar MD Signed By: <Electronically signed by Volodymyr Avelar MD in OV> 08/04/2545 DD/ 37 TD/TT: 07/14/251837 Janitor Custodian: [facility] External Provider IMG US PROCEDURES Final Result * ECG 12 lead (07/08/2025 11:10 AM EST) Narrative Name, MD Dionisio - 07/08/2025 11:10 AM EST NSR, HR of 71, No ST-T changes Dionisio Funes MD ECG ORDERABLES Final Result * POCT Rapid Influenza B PARRA ID NOW (07/08/2025 10:48 AM EST) Influenza B Negative Negative, Indeterminate [facility] QC Media Lot # [id number] [facility] Lot# Expiration Date [facility] Swab 07/08/2025 10:4 8 AM EST us Dionisio Funes MD POINT OF CARE TEST ENTER/EDIT OR DERABLES Final Result [facility] [address] [place] [phone] * POCT Rapid Influenza A PARRA ID NOW (07/08/2025 10:48 AM EST) Influenza A Negative Negative, Indeterminate [facility] QC Media Lot # [id number] [facility] Lot# Expiration Date 127 [facility] Swab 07/08/2025 10:4 8 AM EST us Dionisio Funes MD POINT OF CARE TEST ENTER/EDIT OR DERABLES Final Result [facility] [address] [place] [phone] * POCT Rapid Strep A PARRA ID NOW (07/08/2025 10:48 AM EST) Pathologist [facility] Rapid Strep A Screen Negative Negative, None Detected QC Media Lot # [id number] Lot# Expiration Date Swab 07/08/2025 10:4 8 AM EST us Dionisio Funes MD POINT OF CARE TEST ENTER/EDIT OR DERABLES Final Result * POCT Rapid Covid-19 BinaxNOW (07/08/2025 10:48 AM EST) Pathologist [facility] Rapid COVID Ag Negative [facility] QC Media Lot # [id number] [facility] Lot# Expiration Date [id number] [facility] Swab 07/08/2025 10:4 8 AM EST us Dionisio Funes MD POINT OF CARE TEST ENTER/EDIT OR DERABLES Final Result [facility] [address] [place] [phone] * BI Mammogram Screening Tomosynthesis Bilateral (06/19/2024 1:23 PM EDT) Anatomical Region Laterality Modality Breast Bilateral Mammography 06/19/2024 1:23 PM EDT Narrative 06/28/2024 10:33 AM EDT [address] [place], [place] [address] Mammography Report Signed Patient: Cherri Nash MR#: [id number] : 1965 Acct:[id number] Age/Sex: 59 / F ADM Date: 06/19/24 Loc: HO.MAMMO Attending Dr: Manolo Garcia NP Ordering Physician: MANOLO GARCIA NP Results: 1Negative Date of Service: 06/19/24 Follow Up: 1 Year From Orig inal Mammogram Procedure(s): MM tomosynthesis screening BI Accession Number(s): [id number] cc: MANOLO GARCIA NP EXAMINATION: MM SCREENING [...] 06/28/24 1030 DD/ 1323 TD/TT: 06/19/24 1336 Janitor Custodian: Procedure Note Donotuseinterpreter, Image - 06/28/[address] [place], [place] [address] Mammography Report Signed Patient: Cherri Nash JMR#: [id number] : 1965Acct:[id number] Age/Sex: 59 / FADM Date: 06/19/24 Loc: HO.MAMMO Attending Dr: Manolo Garcia NP Ordering Physician: MANOLO GARCIA NPResults: 1Negative Date of Service: 06/19/24Follow Up: 1 Year From Orig inal Mammogram Procedure(s): MM tomosynthesis screening BI Accession Number(s): [id number] cc: MANOLO GARCIA NP EXAMINATION: MM SCREENING [...] 06/28/24 1030 DD/ 1323 TD/TT: 06/19/24 1336 Janitor Custodian: Manolo Garcia ANP IMG BI PROCEDURES Final Result * HIV 1/2 ANTIGEN/ANTIBODY,FOURTH GENERATION W/RFL (05/08/2022 2:27 PM EDT) HIV-1/2 ANTIGEN AND ANTIBODIES, 4TH GENERATION W/ REFLEX NON-REACT IRON NON-REACT IRON [facility] Comment: HIV-1 antigen and HIV-1/HIV-2 [...] purpose. For additional information please refer to http://Wishberg.Upower/faq/NEL439 (This link is being provided for informational/ educational purposes only.) The performance of this assay has not been clinically validated in patients less than 2 years old. 05/08/2022 2:27 PM EDT [facility] LAB BLOOD ORDERABLES Final Resul t [facility] [address] * Colonoscopy (04/12/2018) Colonoscopy Normal Normal [facility] Provider HEALTH MAINTENANCE Final Result * HPV mRNA E6/E7 (10/25/2016 9:30 AM EST) HPV mRNA E6/E7 Not Detected NOT DETECTED [facility] Comment: This test was performed using the APTIMA(R) HPV Assay ([employer] This assay detects E6/E7 viral messenger RNA (mRNA) from 14 high-risk HPV types (16,18,31,33,35,39,45,51, 52,56,58,59,66,68). For additional information please refer to: http://education.Upower/faq/CRZ996i9 (This link is being provided for informational/ educational purposes only.) Test Performed by [employer], [employer] [facility], [address] [place] [address] Naif Pereira M.D., Ph.D., Director of Laboratories , [facility] [id number] Please note: Effective 05/08/2016, HPV testing will be performed using [employer]'s APTIMA test which targets mRNA. Detecting mRNA instead of DNA, as in older methods, offers significant improvements in specificity. 10/25/2016 9:30 AM EST Hazel Corcoran MD HISTORICAL/NON ORDERABLE LABS Final Result [facility] [address] from Last 3 Months or Most Recently Relevant to Health Maintenance Insurance [employer] C3 Care Teams Paper Bag Inspector Relationship Specialty Start Date End Date Jennifer Sultana NP [address] [place] [phone] PCP - General Family Medicine 07/28/24 Juanito Srinivasan Trim Mechanic 05/10/23 Francisco J Palomino Trim MechanicBailing Machine Operator 05/16/23 Fawad Vargas Trim MechanicBailing Machine Operator 08/11/24
--- OUTSIDE RECORDS SUMMARY | 2025-08-26 09:25 | XMS_ITS | Encounter Summary ---
Author Organization [employer] Address [address] [place] [address] [address] [place] [address] Care Team Providers Care Volunteer Services Specialist Name Role Phone Jennifer Sultana NP Primary Care Provider [phone] Reason for Visit * Reason Comments Med Refill Encounter Details Date Type Department Care Team ([facility] Contact Info) Description 08/10/2024 Refill [facility] [address] [place], [place] [phone] Ju Khan, ANP [address] [place] [address] Spondylosis 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 Social [...] Description 09/18/2025 1:00 PM EST Office Visit [facility] [address] [place] [address] Isaiah, Meli, OD [address] [place] [address] documented as of this encounter Visit Diagnoses Diagnosis Spondylosis 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 documented in this encounter Additional Health Concerns Assessment Noted Time PHQ-9 Depression Total Score: 27 024 2:31 PM EST documented as of this encounter Care Teams Volunteer Services Specialist Relationship Specialty Start Date End Date Jennifer Sultana NP [address] [place] [address] PCP - General Family Medicine 07/28/24 Juanito Srinivasan Pipe Maker 05/10/23 Francisco J Palomino Pipe MakerCouncil Member 05/16/23 Fawad Vargas Pipe MakerCouncil Member 08/11/24 documented as of this encounter
--- OUTSIDE RECORDS SUMMARY | 2025-08-26 09:25 | XMS_ITS | Encounter Summary ---
Demographics Address [address] [facility] [address] [place] [address] Mobile Phone Home Phone Work Phone Email Address Preferred Language en Marital Status Zoroastrian Affiliation Unknown Race White Ethnic Group Unknown Author Organization [employer] Address [address] [place] [address] 7[address] [place] [address] Care Team Providers Care Union Contract Representative Name Role Phone Ju Khan ANP Primary Care Provider [phone] Jennifer Sultana NP Primary Care Provider [phone] Reason for Visit * Reason Comments Med Refill Encounter Details Date Type Department Care Team ([facility] st Contact Info) Description 10/28/2023 Refill [facility] [address] [place], [place] [phone] Ju Khan ANP [address] [place], [place] [phone] Multiple joint pain Social History Tobacco Use [...] EST Office Visit [facility] [address] [place] [address] Isaiah, Meli, OD [address] [place] [address] documented as of this encounter Visit Diagnoses Diagnosis Multiple joint pain Pain in joint, multiple sites documented in this encounter Additional Health Concerns Assessment Noted Time PHQ-9 Depression Total Score: 9 12/01/19 10:12 AM EDT documented as of this encounter Care Teams Union Contract Representative Relationship Specialty Start Date End Date Ju Khan ANP [address] [place] [address] PCP - General Family Medicine 03/20/22 07/27/24 Jennifer Sultana NP [address] [place] [address] PCP - General Family Medicine 07/28/24 Juanito Srinivasan Galvanizing Pot Runner 05/10/23 Francisco J Palomino Galvanizing Pot RunnerWound Care Rn 05/16/23 Fawad Vargas Galvanizing Pot RunnerWound Care Rn 08/11/24 documented as of this encounter
--- OUTSIDE RECORDS SUMMARY | 2025-08-26 09:25 | XMS_ITS | Encounter Summary ---
Demographics Address [address] [facility] [address] [place] [address] Mobile Phone Home Phone Work Phone Email Address Preferred Language en Marital Status Jewish Affiliation Unknown Race White Ethnic Group Unknown Author Organization [employer] Address [address] [place] [address] [address] [place] [address] Care Team Providers Care Multimedia Engineer Name Role Phone Ju Khan ANP Primary Care Provider [phone] Jennifer Sultana REPORTER ANCHOR Primary Care Provider [phone] Reason for Visit * Reason Comments Med Refill Encounter Details Date Type Department Care Team (Late st Contact Info) Description 11/07/2023 Refill [facility] [address] [place], [place] [phone] Ju Khan ANP [address] [place] [address] Spondylosis 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 Social [...] Visit [facility] OPTOMETRY [address] [place] [address] IsaiahMeli posey, OD [address] [place] [address] documented as of this encounter Visit Diagnoses Diagnosis Spondylosis 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 documented in this encounter Additional Health Concerns Assessment Noted Time PHQ-9 Depression Total Score: 9 12/01/19 23 10:12 AM EDT documented as of this encounter Care Teams Multimedia Engineer Relationship Specialty Start Date End Date Ju Khan ANP [address] [place] [address] PCP - General Family Medicine 03/20/22 07/27/24 Jennifer Sultana NP [address] [place] [address] PCP - General Family Medicine 07/28/24 Juanito Srinivasan Supervisor Cigar Making Machine 05/10/23 Francisco J Palomino Supervisor Cigar Making MachineLabor Crew Supervisor 05/16/23 Fawad Vargas Supervisor Cigar Making MachineLabor Crew Supervisor 08/11/24 documented as of this encounter
--- OUTSIDE RECORDS SUMMARY | 2025-08-26 09:25 | XMS_ITS | Encounter Summary ---
Author Organization [facility] Address [address] [place] [phone] Phone Care Team Providers Care Board Writer Name Role Phone Nick Tejada DO Primary Care Provider [phone] Encounter Details Date Type Department Care Team (Late st Contact Info) Description 05/30/2018 Ancillary Orders [facility] [address] [place] [address] Nick Tejada DO [address] [place] [address] Dizziness Social History Tobacco Use Types Packs/Day [...] giddiness documented in this encounter Care Teams Board Writer Relationship Specialty Start Date End Date Nick Tejada [address] [place] [phone] PCP - General Cardiology 05/29/18 documented as of this encounter Additional Source Comments The information contained in this document represents components of the legal health record. It is not the complete legal health record.[facility]
== END 2025-08-05 00:01 | disposition home or self-care (01) ==
LOC: HO.HHCX
PROVIDERS: Visit Provider Nurse Practitioner Family
DX: M25.511 Pain in right shoulder (principal)
CPT/HCPCS: 73030

== ENCOUNTER → 2025-08-05 15:38 | Outpatient (BNV) | payer MEDICAID, SELFPAY | PROVIDERS: PCP Nurse Practitioner Family; Visit Provider Radiology Diagnostic Ultrasound | DX: M25.511 Pain in right shoulder (principal) | CPT/HCPCS: 73030 ==